=== PATIENT | male | born 1940 | race Caucasian/White ===

== ENCOUNTER → 2016-07-31 | Outpatient (REF) | payer MEDICARE ==
[~2016-07-31] MED LIST: /CLON2TA PO; /HCTZ25TA PO; /TAMS4CA PO; ACETAMINOPHEN PO; ASPI325T PO; ASPI81TA21 PO; CIPR250T2 PO; CRANPOW2 PO; DIGO25TA PO; DOXY-197 PO; ICAPCAP PO; LIPI80TA PO; METF1000 PO; MINI1CAP PO; PERCOCET PO; SYNT100T PO; TRAMADOL PO; VIT D3 PO; VITA100L PO; Vit B 12 PO; [UNRECOGNIZED DRUG - OTHER] PO; allopurinol PO; atenolol PO; colchicine PO; iron PO; lipitor PO; mega red PO; prazosin PO; spironolactone PO
[2016-07-31 19:20] LABS: PERCENT SATURATION 27.4 % (19.7-37.4)
== END ==
LOC: M LAB REF 16:52
PROVIDERS: ATTEND Internal Medicine Nephrology
DX: N18.9 Chronic kidney disease, unspecified (principal); D63.1 Anemia in chronic kidney disease

== ENCOUNTER → 2016-08-01 | Outpatient (REF) | payer OTHER ==
[2016-08-01 16:51] LABS: MEAN CORPUSCULAR HEMOGLOBIN 32.7 pg (27.0-33.0); MEAN CORPUSCULAR HGB CONC 32.5 g/dl (32.0-36.5); MEAN CORPUSCULAR VOLUME 100.6 fl (80.0-96.0); RED CELL DISTRIBUTION WIDTH 14.8 % (11.5-14.5); WHITE BLOOD COUNT 4.9 K/mm3 (4.0-10.0)
== END ==
LOC: M SFHCLERA 11:46
PROVIDERS: ATTEND Family Medicine
DX: K92.1 Melena (principal)

== ENCOUNTER → 2016-08-15 | Outpatient (CLI) | payer OTHER ==
[~2016-08-15] VITALS: Ht 177.8 cm; Wt 152.0 kg
[~2016-08-15] MED LIST changes: +ALLO10TA PO; +ATEN100T PO; +CRAN125T PO; +FLOM5CAP PO; +FURO1TAB15 PO; +GLUCAGON FOR INJ 1 MG VIAL (J1610) As Ordered ONE; +IRON28TA PO; +LEVO100T5 PO; +LIDOCAINE 2% INJ 100 MG/5 ML SDV (FOR ANES.) As Ordered ONE; +LISI2.5T3 PO; +LOVA20TA2 PO; +NS 1,000 ML IV SCH; +PROPOFOL 200 MG/20 ML VIAL As Ordered ONE; +SPIR50TA2 PO; +VITA100037 PO; +VITA100072 PO
--- NOTE | 2016-08-15 07:53 | ROOR ---
Patient Name: Jeffrey Chaudhary Procedure Date: 08/15/2016 7:37 AM Date of : 1940 Age: 76 Room: [facility] Gender: Male Note Status: Finalized Procedure: Upper GI endoscopy Indications: Iron deficiency anemia secondary to chronic blood loss Providers: Vernon HOLLY MD Referring MD: Wei Bonilla MD Requesting Provider: Medicines: Monitored Anesthesia Care Complications: No immediate complications. Procedure: Pre-Anesthesia Assessment: - The heart rate, respiratory rate, oxygen saturations, blood pressure, adequacy of pulmonary ventilation, and response to care were monitored throughout the procedure. The Endoscope was introduced through the mouth, and advanced to the second part of duodenum. The upper GI endoscopy was accomplished without difficulty. The patient tolerated the procedure well. Findings: The esophagus was normal. The stomach was normal. The examined duodenum was normal. Impression: - Normal esophagus. - Normal stomach. - Normal examined duodenum. - No specimens collected. Recommendation: - Observe patient's clinical course. Vernon Holly MD Vernon HOLLY MD 08/15/2016 7:52:32 AM This report has been signed electronically. Number of Addenda: 0 Note Initiated On: 08/15/2016 7:37 AM Estimated Blood Loss: Estimated blood loss: none.
--- NOTE | 2016-08-15 09:19 | ROOR ---
Patient Name: Jeffrey Chaudhary Procedure Date: 08/15/2016 7:39 AM Date of : 1940 Age: 76 Room: [facility] Gender: Male Note Status: Finalized Procedure: Colonoscopy Indications: Iron deficiency anemia Providers: Vernon HOLLY MD Referring MD: Wei Bonilla MD Requesting Provider: Medicines: Monitored Anesthesia Care Complications: No immediate complications. Procedure: Pre-Anesthesia Assessment: - The heart rate, respiratory rate, oxygen saturations, blood pressure, adequacy of pulmonary ventilation, and response to care were monitored throughout the procedure. The Colonoscope was introduced through the anus and advanced to the cecum, identified by appendiceal orifice and ileocecal valve. The colonoscopy was performed without difficulty. The patient tolerated the procedure well. The quality of the bowel preparation was adequate. Findings: The perianal and digital rectal examinations were normal. (EXAM: Complete, PREP:Adequate) A large (~30-40 mm) multilobed polypoid lesion was found in the ascending colon. The lesion was semi-sessile. The polyp was removed with a hot snare and The polyp was removed with a piecemeal technique using a hot snare. Polyp resection was incomplete, and the resected tissue was partially retrieved. A 20 mm polyp was found in the ascending colon. The polyp was sessile. The polyp was removed with a hot snare. The polyp was removed with a piecemeal technique using a hot snare. Polyp resection was incomplete, and the resected tissue was partially retrieved. Three sessile polyps were found in the hepatic flexure. The polyps were 7 to 15 mm in size. These polyps were removed with a piecemeal technique using a cold snare. Resection and retrieval were complete. Three sessile polyps were found in the splenic flexure. The polyps were 7 to 10 mm in size. These polyps were removed with a cold snare. Resection and retrieval were complete. To close a defect after polypectomy, five hemostatic clips were successfully placed in the mid ascending colon. Impression: - (EXAM: Complete, PREP:Adequate) - Rule out malignancy, large polypoid lesion in the mid ascending colon. Tissue was removed. - One 20 mm polyp in the proximal ascending colon, removed with a hot snare and removed piecemeal using a hot snare. Polyp resection was incomplete, and the resected tissue was partially retrieved. - Three 7 to 15 mm polyps at the hepatic flexure, removed piecemeal using a cold snare. Resected and retrieved. - Three 7 to 10 mm polyps at the splenic flexure, removed with a cold snare. Resected and retrieved. - Five hemostatic clips were successfully placed in the mid ascending colon. Recommendation: - Await pathology results. - No aspirin, ibuprofen, naproxen, or other non-steroidal anti-inflammatory drugs for 10 days after polyp removal. - Plan: Depending on pathology, will decide if needs surgical resection. Vernon Holly MD Vernon HOLLY MD 08/15/2016 9:18:58 AM This report has been signed electronically. Number of Addenda: 0 Note Initiated On: 08/15/2016 7:39 AM Estimated Blood Loss: Estimated blood loss: none.
[2016-08-15 09:40] VITALS: BP 128/68
== END ==
LOC: M OPP 06:42
PROVIDERS: ATTEND Internal Medicine Gastroenterology
DX: D12.2 Benign neoplasm of ascending colon (principal); D12.3 Benign neoplasm of transverse colon; D49.0 Neoplasm of unspecified behavior of digestive system; D50.0 Iron deficiency anemia secondary to blood loss (chronic); I10 Essential (primary) hypertension; I48.91 Unspecified atrial fibrillation; E11.9 Type 2 diabetes mellitus without complications; Z85.46 Personal history of malignant neoplasm of prostate; Z79.899 Other long term (current) drug therapy
CPT/HCPCS: 43235; 45385; 88305; J1610

== ENCOUNTER 2016-10-06 08:39 | Inpatient (IN) | payer OTHER ==
[~2016-10-06] VITALS: Ht 177.8 cm; Wt 148.2 kg
[~2016-10-06 08:39] MED LIST changes: -GLUCAGON FOR INJ 1 MG VIAL (J1610) As Ordered ONE; +K-TA10TA2 PO; +LEVO175T2 PO; -LIDOCAINE 2% INJ 100 MG/5 ML SDV (FOR ANES.) As Ordered ONE; -NS 1,000 ML IV SCH; -PROPOFOL 200 MG/20 ML VIAL As Ordered ONE
[2016-10-06] MEDS ORDERED: LISINOPRIL *2.5 MG* TAB PO SCH (09:00)
[2016-10-06] MEDS ORDERED: LR 1,000 ML IV SCH ×3 (09:00→16:15)
[2016-10-06] MEDS ORDERED: MIDAZOLAM INJ 2 MG/2 ML VIAL (J2250) As Ordered ONE (09:15)
[2016-10-06] MEDS ORDERED: ALVIMOPAN 12 MG CAPSULE (ENTEREG) PO ONE (09:15)
[2016-10-06] MEDS ORDERED: ERTAPENEM SODIUM 1 GM in NS MINI-BAG PLUS 50 ML IV ONE (09:15)
[2016-10-06] MEDS ORDERED: fentaNYL 100 MCG/2 ML INJECTION (J3010) As Ordered ONE ×2 (09:15→09:16)
[2016-10-06] MEDS ORDERED: PROPOFOL 200 MG/20 ML VIAL As Ordered ONE (09:16)
[2016-10-06] MEDS ORDERED: ROCURONIUM BROMIDE 50 MG/5 ML VIAL As Ordered ONE ×3 (09:16→13:35)
[2016-10-06] MEDS ORDERED: GLYCOPYRROLATE INJ 0.2 MG/ML 2 ML VIAL As Ordered ONE (09:16)
[2016-10-06] MEDS ORDERED: LIDOCAINE 2% INJ 100 MG/5 ML SDV (FOR ANES.) As Ordered ONE (09:16)
[2016-10-06] MEDS ORDERED: BUPIVACAINE HCL 0.25% 30 ML VIAL As Ordered ONE (10:41)
[2016-10-06] MEDS ORDERED: fentaNYL 100 MCG/2 ML INJECTION (J3010) IV ONE (10:45)
[2016-10-06] MEDS ORDERED: MIDAZOLAM INJ 2 MG/2 ML VIAL (J2250) IV ONE (10:45)
[2016-10-06] MEDS ORDERED: ePHEDrine SULFATE 25 MG/5 ML(5MG/ML) SYRINGE As Ordered ONE (11:05)
[2016-10-06] MEDS ORDERED: PHENYLephrine HCL 500 MCG/5 ML (100MCG/ML) SYRINGE (J2370) As Ordered ONE (11:05)
[2016-10-06] MEDS ORDERED: fentaNYL 250 MCG/5 ML INJECTION (J3010) As Ordered ONE (11:29)
[2016-10-06] MEDS ORDERED: ONDANSETRON 4MG/2ML VIAL (J2405) As Ordered ONE (13:15)
[2016-10-06] MEDS ORDERED: NEOSTIGMINE 1MG/ML 5 ML SYRINGE (J2710) As Ordered ONE (13:15)
[2016-10-06] MEDS ORDERED: LIDOCAINE 1% MDV 20ML VIAL ONE (13:56)
[2016-10-06] MEDS: MIDAZOLAM INJ 2 MG/2 ML VIAL (J2250) IV PRN ×2 (15:11→15:19)
[2016-10-06] MEDS: fentaNYL 100 MCG/2 ML INJECTION (J3010) IV PRN ×4 (15:12→16:12)
[2016-10-06] MEDS ORDERED: KETOROLAC 30 MG/ML VIAL (J1885) IV PRN (15:15)
[2016-10-06 15:30] LABS: ABG BASE EXCESS -7.7 (-2.0-2.0); ABG DEVICE ROOM AIR; ABG HCO3 19.7 MEQ/L (22.0-26.0); ABG PARTIAL PRESSURE CO2 46.8 mmHg (35.0-45.0); ABG PARTIAL PRESSURE O2 106.5 mmHg (75.0-100.0); ABG STANDARD HCO3 18.3 MEQ/L (22.0-26.0); ABG TOTAL CO2 21.1 MEQ/L (23.0-31.0)
[2016-10-06 15:32] LABS: ABG pH (ARTERIAL) 7.241 UNITS (7.350-7.450)
[2016-10-06] MEDS: FENTANYL/BUPIVACAINE/NACL CADD 250 ML EPIDURAL SCH (16:00)
[2016-10-06] MEDS ORDERED: NALOXONE INJ 0.4 MG/1 ML VIAL (J2310) IV PRN (16:00)
[2016-10-06] MEDS ORDERED: WALLBOXKEY XX PRN (16:00)
[2016-10-06] MEDS ORDERED: diphenhydrAMINE INJ 50MG/ML VIAL (J1200) IV PRN (16:00)
[2016-10-06] MEDS ORDERED: ONDANSETRON 4MG/2ML VIAL (J2405) IV PRN (16:00)
[2016-10-06] MEDS ORDERED: EPIDURAL/PCA KEYS XX PRN (16:00)
[2016-10-06] MEDS ORDERED: METOCLOPRAMIDE INJ 10MG/2ML VIAL (J2765) IV PRN (16:00)
--- NOTE | 2016-10-06 17:30 | CR ---
DATE OF CONSULTATION: 10/06/2016 INPATIENT CONSULTATION FOR: Dr. Osborn. PRIMARY CARE PROVIDER: Dr. Tompkins. NYLON HOT WIRE CUTTER: Dr. Barrios. REASON FOR CONSULTATION: Postoperative confusion. SUMMARY OF PRESENTATION: A 76-year-old with multiple medical issues who, postoperatively and after intubation, has been confused, pulling at his Haskins catheter, attempting to get out of bed. During the course of his evaluation for this, he had a blood gas done, which showed a pH of 7.24, pCO2 of 46, and a bicarbonate of 19, with a paO2 of 6. I was called to evaluate the patient. He did have a resection for high-grade colonic dysplasia and an umbilical hernia repair under general anesthesia. He had a preoperative evaluation done by Dr. Barrios for cardiac clearance. Currently, he is not useful historian. He is arousable and answers simply yes and no questions. He is not complaining of pain. He knows that he is in [place], although he does not tell me that he is in the hospital. PAST MEDICAL HISTORY: 1. Hypertension. 2. Type 2 diabetes. 3. Elevated PSA. 4. Gout. 5. Kidney stones. 6. Elevated cholesterol. 7. Obesity. 8. Prostate cancer. 9. Atrial fibrillation. 10. Chronic venous insufficiency. 11. Chronic kidney disease. He has no known drug allergies. SURGICAL HISTORY: 1. Prostate biopsy. 2. Cauterization of bladder. SOCIAL HISTORY: He is a former smoker. Quit over 10 years ago. He is not drinking any significant amount of alcohol. 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 FAMILY HISTORY: Not obtainable. REVIEW OF SYSTEMS: Is not meaningfully obtainable. MEDICATION LIST: - allopurinol 300 mg daily - atenolol 100 mg daily - vitamin B12 daily - Lasix 80 mg daily - lisinopril 2.5 mg daily - lovastatin 20 mg daily - potassium chloride 10 mEq daily - spironolactone 50 mg daily - Flomax 0.4 mg daily - vitamin D 1000 units daily - cranberry extract - iron supplement - I-caps - Synthroid 175 mcg daily PHYSICAL EXAMINATION: Temperature 98.2, pulse 112, respiratory rate variable between 18-24, although he does sometimes take some pauses in his respiratory drive, blood pressure 137/66, 98% on supplemental oxygen by nasal cannula. He is sleepy, but arousable. Following simple commands. He is re-directable when he is trying to get out of bed. Mucous membranes are moist. Neck is quite thick Breathing is symmetrically diminished. Inspiratory to expiratory ratio (I:E) is 1:4. Heart is distant sounding. Normal S1, S2. Regular rate and rhythm. Radial pulses are 2+. Abdomen is cleanly dressed. There is trace bilateral lower extremity edema. He appears to be moving all four extremities. Facies are symmetrical. The only lab for me to review at the moment is pH of 7.24, pCO2 of 46, pO2 of 106, and a bicarbonate of 19. Hemoglobin done on 08/01/2016 was 10.6 and platelets 118. Previous EKG on 09/27/2016 shows atrial fibrillation with a rate of 73, nonspecific interventricular conduction delay, R-wave progression, which is delayed, borderline left access deviation, with no changes from 07/2012. ASSESSMENT: This is a 76-year-old with metabolic encephalopathy postoperatively. PLAN: 1. Metabolic encephalopathy. Patient will be admitted to the intensive care unit (ICU) for close monitoring. I suspect that he has underlying obstructive sleep apnea, which is undiagnosed. He also has compounding acidemia. I believe that this represents recovery from the postoperative period. It is possible he may require bilevel positive airway pressure (BiPAP) or reintubation, should he worsen. 2. Patient has atrial fibrillation. He is off anticoagulation related to his surgery. Continue off anticoagulation for now. Will continue his beta deandra. 3. Patient has hypertension. We will hold his angiotensin-converting enzyme (HELEN) and his diuretics in the postoperative setting. 4. Patient has diabetes. Would recommend insulin coverage during his stay. 5. Patient has hyperlipidemia. Continue his statin postoperatively. 6. Patient has hypothyroidism. Continue with Synthroid. 7. Patient has gout. Continue with allopurinol. 8. Deep venous thrombosis (DVT) prophylaxis. Will likely be mechanical. 9. Patient has anemia and thrombocytopenia. This will be monitored postoperatively.
[2016-10-06] MEDS: LR 1,000 ML IV SCH (18:00)
[2016-10-06 19:00] VITALS: BP 116/57
[2016-10-06] MEDS: ALLOPURINOL 100 MG TAB PO SCH (19:19)
[2016-10-06] MEDS: TAMSULOSIN 0.4 MG CAP PO SCH (19:19)
[2016-10-06] MEDS: ALVIMOPAN 12 MG CAPSULE (ENTEREG) PO SCH (20:52)
[2016-10-06 21:00] VITALS: BP 114/59
[2016-10-06] MEDS: ENOXAPARIN 40 MG/0.4 ML SYRINGE (J1650) SC SCH (22:20)
[2016-10-06 23:00] VITALS: BP 112/54
[2016-10-07] VITALS (9 sets, daily range): BP systolic 94–119; BP diastolic 50–64
[2016-10-07 04:44] LABS: BASO % 0.2 % (0.0-1.0); EOS % 0.3 % (0.0-3.0); LARGE UNSTAINED CELL # 0.1 K/mm3 (0.0-0.4); LARGE UNSTAINED CELL % 1.8 % (0.0-4.0); LYMPH # 0.5 K/mm3 (1.5-4.5); LYMPH % 6.9 % (24.0-44.0); MEAN CORPUSCULAR HEMOGLOBIN 30.8 pg (27.0-33.0); MEAN CORPUSCULAR HGB CONC 32.5 g/dl (32.0-36.5); MEAN CORPUSCULAR VOLUME 94.8 fl (80.0-96.0); MONO # 0.6 K/mm3 (0.0-0.8); MONO % 7.8 % (0.0-5.0); NEUTROPHILS # 6.3 K/mm3 (1.8-7.7); PLATELET COUNT, AUTOMATED 107 k/mm3 (150-450); RED CELL DISTRIBUTION WIDTH 13.7 % (11.5-14.5); WHITE BLOOD COUNT 7.6 K/mm3 (4.0-10.0)
[2016-10-07 04:56] LABS: CALCIUM LEVEL 7.8 MG/DL (8.8-10.2); CREATININE FOR GFR 2.21 MG/DL (0.70-1.30); GLOMERULAR FILTRATION RATE 30.8 (>42)
[2016-10-07 04:59] LABS: POTASSIUM SERUM 5.4 MEQ/L (3.5-5.1)
[2016-10-07] MEDS: LEVOTHYROXINE 0.1 MG TAB (100 MCG) PO SCH (06:03)
[2016-10-07] MEDS: LEVOTHYROXINE 0.075 MG TAB (75 MCG) PO SCH (06:04)
[2016-10-07] MEDS: LR 1,000 ML IV SCH (06:07)
[2016-10-07] MEDS: ALLOPURINOL 100 MG TAB PO SCH (08:40)
[2016-10-07] MEDS: ALVIMOPAN 12 MG CAPSULE (ENTEREG) PO SCH ×2 (08:40→21:55)
[2016-10-07] MEDS: TAMSULOSIN 0.4 MG CAP PO SCH (08:40)
[2016-10-07] MEDS ORDERED: LIDOCAINE 1% MDV 20ML VIAL ONE (09:09)
[2016-10-07] MEDS: ATENOLOL 50 MG TAB PO SCH (09:31)
[2016-10-07] MEDS: FENTANYL/BUPIVACAINE/NACL CADD 250 ML EPIDURAL SCH (10:41)
[2016-10-07] MEDS: NS 1,000 ML IV SCH ×2 (11:13→22:00)
[2016-10-07 18:18] LABS: CALCIUM LEVEL 8.1 MG/DL (8.8-10.2); CREATININE FOR GFR 2.52 MG/DL (0.70-1.30); GLOMERULAR FILTRATION RATE 26.5 (>42)
[2016-10-07 18:29] LABS: POTASSIUM SERUM 5.2 MEQ/L (3.5-5.1)
[2016-10-07] MEDS: ENOXAPARIN 40 MG/0.4 ML SYRINGE (J1650) SC SCH (22:00)
[2016-10-08] VITALS (10 sets, daily range): BP systolic 87–125; BP diastolic 51–69
[2016-10-08 04:55] LABS: CALCIUM LEVEL 7.7 MG/DL (8.8-10.2); CREATININE FOR GFR 2.32 MG/DL (0.70-1.30); GLOMERULAR FILTRATION RATE 29.1 (>42); POTASSIUM SERUM 4.8 MEQ/L (3.5-5.1)
[2016-10-08] MEDS: LEVOTHYROXINE 0.075 MG TAB (75 MCG) PO SCH (05:25)
[2016-10-08] MEDS: LEVOTHYROXINE 0.1 MG TAB (100 MCG) PO SCH (05:25)
[2016-10-08] MEDS: FENTANYL/BUPIVACAINE/NACL CADD 250 ML EPIDURAL SCH (07:43)
[2016-10-08] MEDS: ALLOPURINOL 100 MG TAB PO SCH (07:44)
[2016-10-08] MEDS: TAMSULOSIN 0.4 MG CAP PO SCH (07:44)
[2016-10-08] MEDS: ALVIMOPAN 12 MG CAPSULE (ENTEREG) PO SCH ×2 (07:44→20:16)
[2016-10-08] MEDS: ATENOLOL 50 MG TAB PO SCH (07:44)
[2016-10-08] MEDS: FUROSEMIDE 40 MG TAB PO SCH (12:21)
--- NOTE | 2016-10-08 15:04 | RO ---
DATE OF PROCEDURE: 10/06/2016 PREOPERATIVE DIAGNOSIS: Cecal polyp with high-grade dysplasia. POSTOPERATIVE DIAGNOSES: 1. Cecal polyp with high-grade dysplasia. 2. Umbilical hernia, incarcerated. PROCEDURE PERFORMED: 1. Right hemicolectomy. 2. Repair of umbilical hernia. SURGEON: Dr. Osborn WELLNESS MANAGER: Dr. Becerra ANESTHESIA: General. INDICATIONS FOR THE PROCEDURE: The patient is a 76-year-old man who underwent colonoscopy and was found to have a large polyp in the cecum or proximal ascending colon. Portions of this were resected revealing adenomatous tissue with foci of high-grade dysplasia. Another polyp was noted in the mid ascending colon. He is now for a right hemicolectomy. He has been noted to have a large umbilical hernia as well. OPERATIVE PROCEDURE: An epidural catheter was placed preoperatively for postoperative pain management. The patient was transported to the operating room and placed under general endotracheal anesthesia. A Haskins catheter was inserted. The patient's abdomen was prepped and draped in a sterile fashion. The abdomen was entered through a midline incision beginning 2-3 cm above the umbilicus and extending superiorly approximately 20 cm. The incision was deepened through the abundant subcutaneous fat and the fascia was opened along the midline. The peritoneum was opened. The patient was noted to have abundant omental fat. Using handheld retractors the abdomen was explored. The gallbladder had a few small adhesions to the omentum and these were lysed. The liver was perhaps slightly firm and perhaps minimally nodular. The right colon was palpated. The abundant fatty tissue and thickness of the mesentery made palpation for lesions difficult. A definite mass was not palpable in the colon. A Jamie retractor was subsequently obtained and used for retraction. Patient's large umbilical hernia was identified and there was some omentum adherent into this. This was freed using the electrocautery to allow better exposure of the colon. The lateral attachments of the cecum and ascending colon were divided using the electrocautery and the avascular plane was opened extending up to the hepatic flexure. The mid transverse colon was identified and the fibrofatty tissue superior to this was elevated and the attachments below the liver were divided again using the cautery. After the peritoneum had been opened there were some more vascular structures that were clamped, divided and ligated with chromic. The terminal ileum was divided several centimeters proximal to the ileocecal valve with a linear cutter/stapler. The ileal mesentery was divided down to the base. Dissection then proceeded superiorly dividing the mesentery of the ascending colon. This was accomplished through avascular areas using the cautery and vascular structures were clamped, divided and ligated with chromic. The retroperitoneal duodenum was identified and carefully preserved. The transverse colon was divided with a load of the linear cutter 55 stapler just proximal to the middle colic vessels. The mesentery was divided down to its base. The final attachments in the right upper quadrant were divided and the right hemicolectomy was completed. The specimen was placed on the back table while the wound was inspected for hemostasis which was found to be excellent. I subsequently opened the specimen longitudinally. There was a definite 1-1/2 to 2 cm sessile polyp in the region of the mid ascending colon. A polyp in the proximal ascending colon or cecum was not definitely identified on exam. The specimen was placed in formalin and sent for permanent pathology. I changed gown and gloves and returned to the abdomen. The terminal ileum and the transverse colon were brought into apposition with several 3-0 Vicryl sutures. A stapled anastomosis was then performed with the linear cutter 55 stapler and a [id number] stapler to complete the anastomosis. Several 3-0 Vicryl sutures were placed to reinforce portions of the anastomosis and to close tissue over the anastomosis. The final anastomosis looked excellent with an excellent opening. The area was irrigated with warm saline. The mesenteric defect was closed with a running suture of 0 chromic. Final inspection in the right upper quadrant revealed excellent hemostasis. At this point I elected to address the patient's large umbilical hernia. He had a fascial defect that was perhaps 5 cm in diameter. The skin incision was extended slightly further inferiorly and the fascia was opened into the defect at the umbilicus. The umbilical skin was elevated off of the fascia around the periphery. The fascia appeared to be somewhat attenuated but it was clearly identified. I did not think it would be appropriate to place a permanent mesh having just performed a colonic anastomosis. The edges of the fascia were then closed in the area of the umbilical hernia using interrupted simple sutures of 0 Ethibond. This appeared to achieve a nice closure. Fascia in the rest of the incision was closed with interrupted simple sutures of #1 Vicryl. The umbilical skin was tacked down to the fascia with a 3-0 Vicryl. The skin incision was then closed with skin shannon. The patient tolerated the procedure well without apparent complication. He was awakened in the operating room. His respiratory effort appeared to be somewhat depressed on awakening and anesthesia elected to keep him intubated and transport him to the recovery room for later extubation. CARIN
--- NOTE | 2016-10-08 17:11 | IPN ---
DATE: 10/07/2016 Mr. Chaudhary is feeling much better this morning. He is awake, alert, pleasantly interactive looking forward to eating. He has not passed any flatus or stool. He has no pain. He is not experiencing chest pain or shortness of breath. On physical exam temperature is 98.8, pulse 80, respiratory rate 22, blood pressure 118/58, 100% on three liters nasal cannula. Weight is 148.2 kg. Body mass index 46.9. He is awake and interactive, pleasantly conversant, good historian. Mucous membranes are moist. Neck thick, supple. Breathing is symmetrical, diminished throughout. No wheezes, rales, or rhonchi. No accessory muscle use. Speaking in complete sentences. Heart is distant sounding, normal S1, S2. Radial pulse is 2+. Abdomen is soft, hypoactive bowel sounds. White cell count is 7.6, hemoglobin 11.2, and platelets of 107. Potassium 5.4, BUN 14, creatinine 2.2. ASSESSMENT: This is a 76-year-old postoperative day #1, status post bowel resection and hernia repair with resolved metabolic encephalopathy. PLAN: 1. Metabolic encephalopathy. I believe this is most likely multifactorial related to his anesthesia and post surgical discomfort. 2. Atrial fibrillation. He is currently off anticoagulation related to his surgery. Rate is controlled. Beta deandra is continued. HELEN inhibitors are held. His diuretics are currently held as well out of concern for third spacing. He is on a small amount of IV fluid which likely be discontinued if he tolerates his diet. 3. Hyperkalemia. Would recommend repeating labs this afternoon or early evening. 4. Diabetes. Goal fingersticks would be less than 200. He certainly seems to be in that range currently. 5. Hypothyroidism. Continue Synthroid. 6. Anemia and thrombocytopenia, which can be monitored with labs in the postoperative setting. 7. Deep vein thrombosis (DVT) prophylaxis per Dr. Osborn.
[2016-10-08] MEDS: ENOXAPARIN 40 MG/0.4 ML SYRINGE (J1650) SC SCH (22:08)
[2016-10-09 02:00] VITALS: BP 125/66
--- NOTE | 2016-10-09 02:57 | IPN ---
DATE: 10/08/2016 Mr. Chaudhary is feeling well this morning. He is sitting up at bedside. Ate a large breakfast, has not passed any flatus yet. Has not had bowel movement. The patient has complaints of pain. No chest pain. Not particularly short of breath. Does not feel particularly thirsty. Temperature is 97.2, pulse 73, respiratory rate 20, blood pressure 123/62, 95% on room air. Intake and output are notable for a positive fluid balance of 3418. There is a bowel movement recorded yesterday, although apparently the patient does not remember it. Breathing is symmetrical. I:E ratio is 103, rested. No accessory muscle use. Speaking in complete sentences. Heart is a regular rhythm, regular rate. No significant arrhythmia on monitor. Abdomen is distended. Cleanly dressed. Nontender to palpation. White cell count from yesterday was normal. Today, BUN is 46, creatine 2.32, now which has improved from last evening and trending towards his baseline of around 2.1. My assessment is as follows: This is a 76-year-old with postoperative metabolic encephalopathy. Plan is as follows: 1. Metabolic encephalopathy. This is completely resolved at this point. There was concern about a CO2 retention at that time. 2. The patient has atrial fibrillation. He is off anticoagulation. Continue on his beta blockade. 3. The patient has hypertension. Holding his HELEN inhibitor and his diuretics in the setting of renal failure in the postoperative setting. Will likely restart his diuretics tomorrow. 4. The patient has diabetes on insulin coverage . 5. The patient has hyperlipidemia. 6. The patient has hypothyroidism on Synthroid. 7. The patient has gout on allopurinol. 8. The patient has deep vein thrombosis (DVT) prophylaxis. 9. The patient has anemia perhaps check his complete blood count (CBC) tomorrow.
[2016-10-09] MEDS: FENTANYL/BUPIVACAINE/NACL CADD 250 ML EPIDURAL SCH ×2 (04:41→09:23)
[2016-10-09] MEDS: LEVOTHYROXINE 0.1 MG TAB (100 MCG) PO SCH (05:56)
[2016-10-09] MEDS: LEVOTHYROXINE 0.075 MG TAB (75 MCG) PO SCH (05:56)
[2016-10-09 06:00] VITALS: BP 130/68
[2016-10-09 06:14] LABS: MEAN CORPUSCULAR HEMOGLOBIN 31.6 pg (27.0-33.0); MEAN CORPUSCULAR HGB CONC 33.3 g/dl (32.0-36.5); MEAN CORPUSCULAR VOLUME 94.8 fl (80.0-96.0); RED CELL DISTRIBUTION WIDTH 13.6 % (11.5-14.5); WHITE BLOOD COUNT 5.7 K/mm3 (4.0-10.0)
[2016-10-09] MEDS: ALVIMOPAN 12 MG CAPSULE (ENTEREG) PO SCH ×2 (08:49→20:23)
[2016-10-09] MEDS: ATENOLOL 50 MG TAB PO SCH (08:49)
[2016-10-09] MEDS: FUROSEMIDE 40 MG TAB PO SCH (08:50)
[2016-10-09] MEDS: ALLOPURINOL 100 MG TAB PO SCH (08:50)
[2016-10-09] MEDS: TAMSULOSIN 0.4 MG CAP PO SCH (08:50)
[2016-10-09 10:00] VITALS: BP 128/58
[2016-10-09 14:00] VITALS: BP 133/64
[2016-10-09] MEDS: SPIRONOLACTONE 50 MG TAB NG SCH (15:31)
[2016-10-09] MEDS: ENOXAPARIN 40 MG/0.4 ML SYRINGE (J1650) SC SCH (17:25)
[2016-10-09] MEDS ORDERED: ENOXAPARIN 40 MG/0.4 ML SYRINGE (J1650) SC SCH (18:00)
[2016-10-09 22:00] VITALS: BP 116/58
[2016-10-10] VITALS (7 sets, daily range): BP systolic 118–138; BP diastolic 30–80
[2016-10-10] MEDS: FENTANYL/BUPIVACAINE/NACL CADD 250 ML EPIDURAL SCH (02:39)
[2016-10-10] MEDS: LEVOTHYROXINE 0.075 MG TAB (75 MCG) PO SCH (05:38)
[2016-10-10] MEDS: LEVOTHYROXINE 0.1 MG TAB (100 MCG) PO SCH (05:38)
[2016-10-10] MEDS: ATENOLOL 50 MG TAB PO SCH (08:25)
[2016-10-10] MEDS: ALLOPURINOL 100 MG TAB PO SCH (08:25)
[2016-10-10] MEDS: FUROSEMIDE 40 MG TAB PO SCH (08:25)
[2016-10-10] MEDS: TAMSULOSIN 0.4 MG CAP PO SCH (08:25)
[2016-10-10] MEDS: SPIRONOLACTONE 50 MG TAB NG SCH (08:25)
[2016-10-10] MEDS: ALVIMOPAN 12 MG CAPSULE (ENTEREG) PO SCH ×2 (08:25→20:23)
[2016-10-10] MEDS: NORCO, ANEXSIA 5/325MG TABLET (HYDROcodone/ACETAMINOPHEN) PO PRN ×3 (13:22→21:48)
[2016-10-10] MEDS: ENOXAPARIN 40 MG/0.4 ML SYRINGE (J1650) SC SCH (17:28)
[2016-10-11] MEDS: NORCO, ANEXSIA 5/325MG TABLET (HYDROcodone/ACETAMINOPHEN) PO PRN ×3 (01:53→18:27)
[2016-10-11 02:00] VITALS: BP 136/60
[2016-10-11 06:00] VITALS: BP 140/78
[2016-10-11] MEDS: LEVOTHYROXINE 0.1 MG TAB (100 MCG) PO SCH (06:11)
[2016-10-11] MEDS: LEVOTHYROXINE 0.075 MG TAB (75 MCG) PO SCH (06:11)
[2016-10-11 07:25] LABS: BASO % 0.2 % (0.0-1.0); EOS # 0.3 K/mm3 (0.0-0.50); EOS % 6.4 % (0.0-3.0); LARGE UNSTAINED CELL # 0.1 K/mm3 (0.0-0.4); LYMPH # 0.5 K/mm3 (1.5-4.5); MEAN CORPUSCULAR HEMOGLOBIN 31.5 pg (27.0-33.0); MEAN CORPUSCULAR HGB CONC 33.3 g/dl (32.0-36.5); MEAN CORPUSCULAR VOLUME 94.5 fl (80.0-96.0); MONO # 0.4 K/mm3 (0.0-0.8); MONO % 7.6 % (0.0-5.0); NEUTROPHILS # 3.7 K/mm3 (1.8-7.7); NEUTROPHILS % 74.8 % (36.0-66.0); PLATELET COUNT, AUTOMATED 130 k/mm3 (150-450); RED CELL DISTRIBUTION WIDTH 13.7 % (11.5-14.5); WHITE BLOOD COUNT 4.9 K/mm3 (4.0-10.0)
[2016-10-11 08:16] LABS: ALBUMIN/GLOBULIN RATIO 0.81 (1.00-1.93); BILIRUBIN,TOTAL 0.3 MG/DL (0.2-1.0); CALCIUM LEVEL 9.1 MG/DL (8.8-10.2); CREATININE FOR GFR 1.69 MG/DL (0.70-1.30); POTASSIUM SERUM 4.4 MEQ/L (3.5-5.1); TOTAL PROTEIN 6.7 GM/DL (6.4-8.2)
[2016-10-11] MEDS: TAMSULOSIN 0.4 MG CAP PO SCH (08:34)
[2016-10-11] MEDS: ATENOLOL 50 MG TAB PO SCH (08:34)
[2016-10-11] MEDS: SPIRONOLACTONE 50 MG TAB NG SCH (08:34)
[2016-10-11] MEDS: ALLOPURINOL 100 MG TAB PO SCH (08:34)
[2016-10-11] MEDS: FUROSEMIDE 40 MG TAB PO SCH (08:34)
[2016-10-11] MEDS: ALVIMOPAN 12 MG CAPSULE (ENTEREG) PO SCH ×2 (08:34→20:09)
[2016-10-11 10:00] VITALS: BP 140/70
[2016-10-11 14:00] VITALS: BP 130/80
[2016-10-11 18:00] VITALS: BP 140/60
[2016-10-11] MEDS: ENOXAPARIN 40 MG/0.4 ML SYRINGE (J1650) SC SCH (18:23)
[2016-10-11 22:00] VITALS: BP 136/56
[2016-10-12] MEDS: NORCO, ANEXSIA 5/325MG TABLET (HYDROcodone/ACETAMINOPHEN) PO PRN ×2 (04:56→21:34)
[2016-10-12] MEDS: LEVOTHYROXINE 0.1 MG TAB (100 MCG) PO SCH (05:35)
[2016-10-12] MEDS: LEVOTHYROXINE 0.075 MG TAB (75 MCG) PO SCH (05:35)
[2016-10-12 06:00] VITALS: BP 140/62
[2016-10-12] MEDS: FUROSEMIDE 40 MG TAB PO SCH (08:54)
[2016-10-12] MEDS: SPIRONOLACTONE 50 MG TAB NG SCH (08:54)
[2016-10-12] MEDS: ALLOPURINOL 100 MG TAB PO SCH (08:54)
[2016-10-12] MEDS: TAMSULOSIN 0.4 MG CAP PO SCH (08:54)
[2016-10-12] MEDS: ATENOLOL 50 MG TAB PO SCH (08:55)
[2016-10-12] MEDS: ALVIMOPAN 12 MG CAPSULE (ENTEREG) PO SCH ×2 (08:55→20:31)
[2016-10-12 10:00] VITALS: BP 124/74
[2016-10-12 14:00] VITALS: BP 122/70
[2016-10-12] MEDS ORDERED: NORCOTAB PO (17:19)
[2016-10-12] MEDS: ENOXAPARIN 40 MG/0.4 ML SYRINGE (J1650) SC SCH (17:44)
[2016-10-12 18:00] VITALS: BP 118/70
[2016-10-12 22:00] VITALS: BP_SYST 132; BP_SYST 152; BP_DIAS 82; BP_DIAS 86
[2016-10-13] MEDS: NORCO, ANEXSIA 5/325MG TABLET (HYDROcodone/ACETAMINOPHEN) PO PRN ×2 (01:35→06:08)
[2016-10-13 06:00] VITALS: BP_SYST 120; BP_SYST 160; BP_DIAS 56; BP_DIAS 96
[2016-10-13] MEDS: LEVOTHYROXINE 0.1 MG TAB (100 MCG) PO SCH (06:08)
[2016-10-13] MEDS: LEVOTHYROXINE 0.075 MG TAB (75 MCG) PO SCH (06:08)
[2016-10-13] MEDS: SPIRONOLACTONE 50 MG TAB NG SCH (08:25)
[2016-10-13 08:26] VITALS: BP 120/56
[2016-10-13] MEDS: ATENOLOL 50 MG TAB PO SCH (08:26)
[2016-10-13] MEDS: TAMSULOSIN 0.4 MG CAP PO SCH (08:26)
[2016-10-13] MEDS: FUROSEMIDE 40 MG TAB PO SCH (08:26)
[2016-10-13] MEDS: ALVIMOPAN 12 MG CAPSULE (ENTEREG) PO SCH (08:26)
[2016-10-13] MEDS: ALLOPURINOL 100 MG TAB PO SCH (08:26)
== END 2016-10-13 10:57 | disposition home health service (06) | DRG 329 ==
LOC: M OR 08:39 → M ICU 17:09 → M MSPAV 10-08 12:39
PROVIDERS: ADMIT Surgery; ATTEND Surgery
PROC: 0DBH0ZX Excision of Cecum, Open Approach, Diagnostic (ICD-10-PCS; 2016-10-06)
PROC: 0WQF0ZZ Repair Abdominal Wall, Open Approach (ICD-10-PCS; 2016-10-06)
PROC: 0DTK0ZZ Resection of Ascending Colon, Open Approach (ICD-10-PCS; principal; 2016-10-06 10:45)
DX: D12.2 Benign neoplasm of ascending colon (principal); G93.41 Metabolic encephalopathy; Z68.42 Body mass index [BMI] 45.0-49.9, adult; K42.9 Umbilical hernia without obstruction or gangrene; I12.9 Hypertensive chronic kidney disease with stage 1 through stage 4 chronic kidney disease, or unspecified chronic kidney disease; E11.9 Type 2 diabetes mellitus without complications; M10.9 Gout, unspecified; E78.5 Hyperlipidemia, unspecified; E66.01 Morbid (severe) obesity due to excess calories; I48.91 Unspecified atrial fibrillation; D69.6 Thrombocytopenia, unspecified; D64.9 Anemia, unspecified; I87.2 Venous insufficiency (chronic) (peripheral); N18.9 Chronic kidney disease, unspecified; Z85.46 Personal history of malignant neoplasm of prostate; Z87.891 Personal history of nicotine dependence; Z79.899 Other long term (current) drug therapy

== ENCOUNTER → 2016-10-23 | Outpatient (REF) | payer OTHER ==
[~2016-10-23] MED LIST changes: +NORCOTAB PO
[2016-10-23 18:13] LABS: MEAN CORPUSCULAR HEMOGLOBIN 31.1 pg (27.0-33.0); MEAN CORPUSCULAR HGB CONC 32.9 g/dl (32.0-36.5); MEAN CORPUSCULAR VOLUME 94.6 fl (80.0-96.0); WHITE BLOOD COUNT 5.2 K/mm3 (4.0-10.0)
[2016-10-23 19:29] LABS: ALBUMIN 3.4 GM/DL (3.2-5.2); BILIRUBIN,TOTAL 0.4 MG/DL (0.2-1.0); CALCIUM LEVEL 8.6 MG/DL (8.8-10.2); CREATININE FOR GFR 1.92 MG/DL (0.70-1.30); GLOMERULAR FILTRATION RATE 36.2 (>42); POTASSIUM SERUM 4.9 MEQ/L (3.5-5.1); TOTAL PROTEIN 6.8 GM/DL (6.4-8.2)
== END ==
LOC: M SFHCLERA 13:57
PROVIDERS: ATTEND Family Medicine
DX: N18.4 Chronic kidney disease, stage 4 (severe) (principal); I48.91 Unspecified atrial fibrillation; Z90.49 Acquired absence of other specified parts of digestive tract
CPT/HCPCS: 80053; 85027; G0463

== ENCOUNTER → 2016-11-14 | Outpatient (REF) | payer OTHER ==
[2016-11-14 20:47] LABS: MEAN CORPUSCULAR HEMOGLOBIN 30.9 pg (27.0-33.0); MEAN CORPUSCULAR HGB CONC 33.2 g/dl (32.0-36.5); MEAN CORPUSCULAR VOLUME 93.1 fl (80.0-96.0); WHITE BLOOD COUNT 6.4 K/mm3 (4.0-10.0)
[2016-11-14 21:02] LABS: ALBUMIN 3.7 GM/DL (3.2-5.2); ALBUMIN/GLOBULIN RATIO 0.93 (1.00-1.93); BILIRUBIN,TOTAL 0.5 MG/DL (0.2-1.0); CALCIUM LEVEL 9.2 MG/DL (8.8-10.2); CREATININE FOR GFR 2.14 MG/DL (0.70-1.30); POTASSIUM SERUM 4.9 MEQ/L (3.5-5.1); TOTAL PROTEIN 7.7 GM/DL (6.4-8.2)
== END ==
LOC: M SFHCLERA 15:58
PROVIDERS: ATTEND Family Medicine
DX: N18.4 Chronic kidney disease, stage 4 (severe) (principal)

== ENCOUNTER → 2016-12-28 | Outpatient (REF) | payer OTHER ==
[~2016-12-28] MED LIST changes: +ASPI81TA85 PO; +CALC1TAB21 PO; -FURO1TAB15 PO; +FURO80TA2 PO; -VITA100037 PO; +VITA100067 PO
[2016-12-29 11:40] LABS: MEAN CORPUSCULAR HEMOGLOBIN 31.6 pg (27.0-33.0); MEAN CORPUSCULAR VOLUME 95.8 fl (80.0-96.0); RED CELL DISTRIBUTION WIDTH 14.8 % (11.5-14.5); WHITE BLOOD COUNT 6.8 K/mm3 (4.0-10.0)
== END ==
LOC: M SFHCLERA 15:56
PROVIDERS: ATTEND Family Medicine
DX: I48.91 Unspecified atrial fibrillation (principal)
CPT/HCPCS: 85027; G0463

== ENCOUNTER → 2017-01-19 | Outpatient (REF) | payer OTHER ==
[2017-01-19 19:01] LABS: FOLATE 8.8 NG/ML (>5.4)
== END ==
LOC: M LAB REF 16:52
PROVIDERS: ATTEND Internal Medicine Nephrology
DX: D64.9 Anemia, unspecified (principal)

== ENCOUNTER → 2017-01-29 | Outpatient (REF) | payer OTHER ==
[2017-01-29 21:22] LABS: MEAN CORPUSCULAR HEMOGLOBIN 32.5 pg (27.0-33.0); MEAN CORPUSCULAR HGB CONC 33.8 g/dl (32.0-36.5); MEAN CORPUSCULAR VOLUME 96.1 fl (80.0-96.0); WHITE BLOOD COUNT 5.4 K/mm3 (4.0-10.0)
== END ==
LOC: M SFHCLERA 16:00
PROVIDERS: ATTEND Family Medicine
DX: N18.4 Chronic kidney disease, stage 4 (severe) (principal); D64.9 Anemia, unspecified

== ENCOUNTER → 2017-02-12 | Outpatient (REF) | payer OTHER ==
[2017-02-12 13:07] LABS: MEAN CORPUSCULAR HEMOGLOBIN 32.4 pg (27.0-33.0); MEAN CORPUSCULAR HGB CONC 33.2 g/dl (32.0-36.5); MEAN CORPUSCULAR VOLUME 97.6 fl (80.0-96.0); RED CELL DISTRIBUTION WIDTH 15.5 % (11.5-14.5); WHITE BLOOD COUNT 5.6 K/mm3 (4.0-10.0)
[2017-02-12 13:09] LABS: INR 1.04
[2017-02-12 13:37] LABS: ALBUMIN 3.6 GM/DL (3.2-5.2); ALBUMIN/GLOBULIN RATIO 1.09 (1.00-1.93); BILIRUBIN,TOTAL 0.6 MG/DL (0.2-1.0); CREATININE FOR GFR 2.3 MG/DL (0.70-1.30); GLOMERULAR FILTRATION RATE 29.4 (>42); POTASSIUM SERUM 5.1 MEQ/L (3.5-5.1); TOTAL PROTEIN 6.9 GM/DL (6.4-8.2)
== END ==
LOC: M SFHCLERA 08:17
PROVIDERS: ATTEND Family Medicine
DX: D64.9 Anemia, unspecified (principal); Z91.89 Other specified personal risk factors, not elsewhere classified; K92.1 Melena; Z90.49 Acquired absence of other specified parts of digestive tract; Z79.82 Long term (current) use of aspirin; Z79.899 Other long term (current) drug therapy
CPT/HCPCS: 80053; 82270; 85027; 85610; G0463

== ENCOUNTER → 2017-02-22 | Outpatient (CLI) | payer OTHER ==
[~2017-02-22] MED LIST changes: +GASTROGRAFIN SOLUTION 30ML (Q9963) As Ordered ONE; +ISOVUE-370 76% 100ML VIAL (Q9967) As Ordered ONE
--- NOTE | 2017-02-23 08:11 | REP ---
Clinical: Status post colectomy with decreased hemoglobin levels. Comparison: 05/19/2013. Findings: Lung bases demonstrate minimal chronic-appearing interstitial and dependent changes without pleural effusion or consolidation. Visualized portions of the heart and pericardium demonstrate atherosclerotic changes without cardiomegaly or pericardial effusion. Liver, spleen, pancreas, gallbladder, and bilateral adrenal glands are normal / stable for noncontrast evaluation. Upper abdominal vasculature suggests cirrhosis and elements of portal venous hypertension with portosystemic shunting and collateral circulation similar to prior examination. The kidneys demonstrate chronic appearing atrophic changes, perinephric stranding, renovascular calcifications, and nonobstructing right renal calculi measuring up to approximately 8 mm. No hydroureteronephrosis identified. Visualized portions of the enteric system are unremarkable. Visualized portions of the peritoneum without evidence for ascites, fluid collection/abscess, free air, or significant adenopathy. Atherosclerotic changes of the aorta and vasculature noted. Skeletal structures demonstrate age-related changes. Impression: Chronic-appearing changes as described above. No obvious acute abdominal pathology appreciated. Signed by Len Ledesma MD 02/23/2017 04:08 A
== END ==
LOC: M RAD 14:40
PROVIDERS: ATTEND Family Medicine
DX: D64.9 Anemia, unspecified (principal); K92.1 Melena; Z91.89 Other specified personal risk factors, not elsewhere classified; Z90.49 Acquired absence of other specified parts of digestive tract
CPT/HCPCS: 74150; Q9963

== ENCOUNTER → 2017-03-16 | Outpatient (CLI) | payer OTHER ==
[~2017-03-16] MED LIST changes: +E-Z-PAQUE 96% w/w SUSP 176GM BTL As Ordered ONE; -GASTROGRAFIN SOLUTION 30ML (Q9963) As Ordered ONE; -ISOVUE-370 76% 100ML VIAL (Q9967) As Ordered ONE
--- NOTE | 2017-03-16 14:55 | REP ---
SMALL FOLLOW-THROUGH STUDY: HISTORY: Iron deficiency anemia. 1 minute and 3 seconds of fluoroscopy time was utilized. FINDINGS: Preliminary accounting/finance tutor radiograph shows clips and sutures in the right mid abdomen and vascular calcification. No gastric or duodenal abnormality is seen. Jejunal loops are unremarkable. Transit time is normal. Ileal loops show no evidence of obstruction mass or stricture. The patient is status post right colectomy and ileotransverse anastomosis is seen without abnormality. IMPRESSION: Status post right colectomy. Otherwise, unremarkable small bowel follow-through series. Signed by Diego Domínguez MD 03/16/2017 04:58 P
== END ==
LOC: M RAD 07:13
PROVIDERS: ATTEND Internal Medicine Gastroenterology
DX: D50.9 Iron deficiency anemia, unspecified (principal)

== ENCOUNTER 2017-04-10 06:43 | Outpatient (CLI) | payer OTHER ==
[~2017-04-10] VITALS: Ht 180.3 cm; Wt 136.1 kg
[~2017-04-10 06:43] MED LIST changes: -E-Z-PAQUE 96% w/w SUSP 176GM BTL As Ordered ONE
[2017-04-10] MEDS ORDERED: NS 1,000 ML IV ONE (07:00)
[2017-04-10] MEDS ORDERED: PROPOFOL 200 MG/20 ML VIAL As Ordered ONE ×2 (07:36→07:57)
[2017-04-10] MEDS ORDERED: LIDOCAINE 2% INJ 100 MG/5 ML SDV (FOR ANES.) As Ordered ONE (07:36)
--- NOTE | 2017-04-10 07:45 | ROOR ---
Patient Name: Jeffrey Chaudhary Procedure Date: 04/10/2017 7:30 AM Date of : 1940 Age: 76 Room: [facility] Gender: Male Note Status: Finalized Procedure: Upper GI endoscopy Indications: Iron deficiency anemia Providers: Vernon HOLLY MD Referring MD: Wei Bonilla MD Requesting Provider: Medicines: Monitored Anesthesia Care Complications: No immediate complications. Procedure: Pre-Anesthesia Assessment: - The heart rate, respiratory rate, oxygen saturations, blood pressure, adequacy of pulmonary ventilation, and response to care were monitored throughout the procedure. The Endoscope was introduced through the mouth, and advanced to the second part of duodenum. The upper GI endoscopy was accomplished without difficulty. The patient tolerated the procedure well. Findings: The esophagus was normal. The stomach was normal. (large volume) The examined duodenum was normal. Impression: - Normal esophagus. - Normal stomach. - Normal examined duodenum. - No specimens collected. Recommendation: - Continue present medications. - Perform a colonoscopy. Vernon Holly MD Vernon HOLLY MD 04/10/2017 7:44:56 AM This report has been signed electronically. Number of Addenda: 0 Note Initiated On: 04/10/2017 7:30 AM Estimated Blood Loss: Estimated blood loss: none.
--- NOTE | 2017-04-10 08:18 | ROOR ---
Patient Name: Jeffrey Chaudhary Procedure Date: 04/10/2017 7:31 AM Date of : 1940 Age: 76 Room: [facility] Gender: Male Note Status: Finalized Procedure: Colonoscopy Indications: Iron deficiency anemia Providers: Vernon HOLLY MD Referring MD: Wei Bonilla MD Requesting Provider: Medicines: Monitored Anesthesia Care Complications: No immediate complications. Procedure: Pre-Anesthesia Assessment: - The heart rate, respiratory rate, oxygen saturations, blood pressure, adequacy of pulmonary ventilation, and response to care were monitored throughout the procedure. The Colonoscope was introduced through the anus and advanced to the ileocolonic anastomosis. The colonoscopy was performed without difficulty. The patient tolerated the procedure well. The quality of the bowel preparation was fair. Findings: The perianal and digital rectal examinations were normal. (EXAM: Complete, PREP: Fair/Adequate) There was evidence of a prior end-to-side ileo-colonic anastomosis at the hepatic flexure. This was characterized by healthy appearing mucosa. Two sessile polyps were found in the transverse colon. The polyps were 4 to 5 mm in size. These polyps were removed with a cold snare. Resection and retrieval were complete. Four sessile polyps were found in the sigmoid colon. The polyps were 4 to 5 mm in size. These polyps were removed with a cold snare. Resection and retrieval were complete. Internal hemorrhoids were found during retroflexion. The hemorrhoids were moderate. The mucosa vascular pattern in the distal rectum was increased. Impression: - (EXAM: Complete, PREP: Fair/Adequate) - End-to-side ileo-colonic anastomosis, characterized by healthy appearing mucosa. - Two 4 to 5 mm polyps in the transverse colon, removed with a cold snare. Resected and retrieved. - Four 4 to 5 mm polyps in the sigmoid colon, removed with a cold snare. Resected and retrieved. - Moderate Internal hemorrhoids. - Increased mucosa vascular pattern in the distal rectum. Recommendation: - To visualize the small bowel, perform video capsule endoscopy at appointment to be scheduled. Vernon Holly MD Vernon HOLLY MD 04/10/2017 8:18:25 AM This report has been signed electronically. Number of Addenda: 0 Note Initiated On: 04/10/2017 7:31 AM Estimated Blood Loss: Estimated blood loss: none.
[2017-04-10 08:30] VITALS: BP 144/77
== END 2017-04-10 08:36 | disposition home or self-care (01) ==
LOC: M OPP 06:43
PROVIDERS: ATTEND Internal Medicine Gastroenterology
DX: D50.9 Iron deficiency anemia, unspecified (principal); K92.1 Melena; D12.3 Benign neoplasm of transverse colon; D12.5 Benign neoplasm of sigmoid colon; K64.8 Other hemorrhoids; Z98.0 Intestinal bypass and anastomosis status; K62.89 Other specified diseases of anus and rectum; I48.91 Unspecified atrial fibrillation; I12.9 Hypertensive chronic kidney disease with stage 1 through stage 4 chronic kidney disease, or unspecified chronic kidney disease; E78.5 Hyperlipidemia, unspecified; E11.9 Type 2 diabetes mellitus without complications; M10.9 Gout, unspecified; E03.9 Hypothyroidism, unspecified; Z87.19 Personal history of other diseases of the digestive system; M19.90 Unspecified osteoarthritis, unspecified site; J45.909 Unspecified asthma, uncomplicated; R06.83 Snoring; N18.9 Chronic kidney disease, unspecified; Z85.46 Personal history of malignant neoplasm of prostate; Z92.21 Personal history of antineoplastic chemotherapy; Z92.3 Personal history of irradiation; N40.1 Benign prostatic hyperplasia with lower urinary tract symptoms; Z87.891 Personal history of nicotine dependence; Z79.82 Long term (current) use of aspirin; Z79.899 Other long term (current) drug therapy; Z80.51 Family history of malignant neoplasm of kidney

== ENCOUNTER → 2017-07-03 | Outpatient (CLI) | payer OTHER ==
[2017-07-03 17:14] LABS: MEAN CORPUSCULAR HEMOGLOBIN 32.4 pg (27.0-33.0); MEAN CORPUSCULAR HGB CONC 32.7 g/dl (32.0-36.5); MEAN CORPUSCULAR VOLUME 98.9 fl (80.0-96.0); PLATELET COUNT, AUTOMATED 180 10^3/uL (150-450); RED CELL DISTRIBUTION WIDTH 13.6 % (11.5-14.5)
[2017-07-03 17:22] LABS: CALCIUM LEVEL 10.4 MG/DL (8.8-10.2); CREATININE FOR GFR 2.74 MG/DL (0.70-1.30)
[2017-07-03 17:32] LABS: POTASSIUM SERUM 6.1 MEQ/L (3.5-5.1)
== END ==
LOC: M SMT 13:18
PROVIDERS: ATTEND Urology
DX: Z85.46 Personal history of malignant neoplasm of prostate (principal)

== ENCOUNTER → 2017-09-27 | Outpatient (REF) | payer OTHER ==
[2017-09-27 21:04] LABS: ESTIMATED AVERAGE GLUCOSE 131 MG/DL (60-110); HEMOGLOBIN A1c 6.2 %
== END ==
LOC: M SFHCLERA 16:21
DX: E11.22 Type 2 diabetes mellitus with diabetic chronic kidney disease (principal)
CPT/HCPCS: 84443

== ENCOUNTER → 2017-11-19 | Outpatient (RCR) | payer OTHER | END | disposition home or self-care (01) | LOC: M PT 08:54 | DX: Z51.89 Encounter for other specified aftercare (principal); I89.0 Lymphedema, not elsewhere classified | CPT/HCPCS: 97530 ==

== ENCOUNTER → 2017-12-06 | Outpatient (REF) | payer OTHER ==
[2017-12-06 14:36] LABS: FOLATE 15.8 NG/ML; VITAMIN B12 LEVEL 338 PG/ML
[2017-12-06 14:55] LABS: FERRITIN 133 NG/ML (26-388); IRON (FE) 35 UG/DL (65-175); PERCENT SATURATION 13.3 % (19.7-50.0); TOTAL IRON BINDING CAPACITY 263 UG/DL (250-450); TOTAL PROTEIN 7.7 GM/DL (6.4-8.2)
[2017-12-06 23:25] LABS: TOTAL PROTEIN,RANDOM URINE 88.3 MG/DL (0.0-12.0); URINE TOTAL PROTEIN 88.3 MG/DL (0-12)
[2017-12-07 12:53] LABS: ALBUMIN 3.72 GM/DL (3.29-5.55); ALBUMIN % 48.3 % (55.8-66.1); ALPHA-1-GLOBULIN % 6.1 % (2.9-4.9); ALPHA-1-GLOBULINS 0.47 GM/DL (0.17-0.41); ALPHA-2-GLOBULINS 1.01 GM/DL (0.42-0.99); ALPHA-2-GLOBULINS % 13.1 % (7.1-11.8); BETA-1-GLOBULINS 0.45 GM/DL (0.28-0.60); BETA-1-GLOBULINS % 5.8 % (4.7-7.2); BETA-2-GLOBULINS 0.48 GM/DL (0.19-0.55); BETA-2-GLOBULINS % 6.2 % (3.2-6.5); GAMMA GLOBULIN % 20.5 % (11.1-18.8); GAMMA GLOBULINS 1.58 GM/DL (0.65-1.58)
[2017-12-07 13:19] LABS: URINE VOLUME RANDOM ML
[2017-12-07 13:20] LABS: UPEP INTERPRETATION NO M-SPIKE NOTED
[2017-12-11 00:07] LABS: ANCA-ATYPICAL <1:20 titer (Neg:<1:20); ANTINUCLEAR ANTIBODIES DIRECT Negative (Negative); CYTOPLASMIC NEUTROP AB ANCA-C <1:20 titer (Neg:<1:20); FREE LAMBDA LIGHT CHAINS SERUM 74.3 mg/L (5.7-26.3); KAPPA/LAMBDA RATIO SERUM 1.43 (0.26-1.65); PERINUCLEAR AB ANCA-P <1:20 titer (Neg:<1:20)
== END ==
LOC: M LAB REF 13:05
DX: D64.9 Anemia, unspecified (principal)
CPT/HCPCS: 82746

== ENCOUNTER 2017-12-21 07:35 | Outpatient (RCR) | payer OTHER | END 2018-01-19 | LOC: M PT 12-24 08:29 | DX: I89.0 Lymphedema, not elsewhere classified (principal); Z51.89 Encounter for other specified aftercare | CPT/HCPCS: 97140 ==

== ENCOUNTER 2018-01-07 06:48 | Outpatient (CLI) | payer OTHER ==
[2018-01-07] MEDS: IRON SUCROSE 25 MG in NS 50 ML IV (07:50)
[2018-01-07] MEDS: IRON SUCROSE 475 MG in NS 250 ML IV (09:03)
== END 2018-01-07 12:30 | disposition home or self-care (01) ==
LOC: M INFU 06:48
DX: D50.9 Iron deficiency anemia, unspecified (principal); N18.9 Chronic kidney disease, unspecified; E11.9 Type 2 diabetes mellitus without complications; I12.9 Hypertensive chronic kidney disease with stage 1 through stage 4 chronic kidney disease, or unspecified chronic kidney disease; E03.9 Hypothyroidism, unspecified; Z79.82 Long term (current) use of aspirin; Z79.899 Other long term (current) drug therapy; Z86.79 Personal history of other diseases of the circulatory system; Z85.46 Personal history of malignant neoplasm of prostate; Z92.3 Personal history of irradiation; Z90.49 Acquired absence of other specified parts of digestive tract; Z87.448 Personal history of other diseases of urinary system
CPT/HCPCS: J1756

== ENCOUNTER → 2018-02-25 | Outpatient (CLI) | payer OTHER | LOC: M RAD 11:21 | DX: I87.312 Chronic venous hypertension (idiopathic) with ulcer of left lower extremity (principal) | CPT/HCPCS: 93971 ==

== ENCOUNTER → 2018-04-18 | Outpatient (REF) | payer OTHER | LOC: M LAB REF 17:21 | DX: L85.9 Epidermal thickening, unspecified (principal) | CPT/HCPCS: 88305 ==

== ENCOUNTER → 2018-07-02 | Outpatient (CLI) | payer OTHER ==
[~2018-07-02] MED LIST changes: +FLOM0.4C39 PO; -FLOM5CAP PO; -LISI2.5T3 PO; +LISI2.5T5 PO; -SPIR50TA2 PO; +SPIR50TA4 PO
== END ==
LOC: M SMT 14:00
PROVIDERS: ATTEND Nurse Practitioner Women's Health
DX: Z85.46 Personal history of malignant neoplasm of prostate (principal)
CPT/HCPCS: 36415; 84153; G0463

== ENCOUNTER 2018-08-31 06:25 | Inpatient (IN) | payer MEDICARE, OTHER ==
[~2018-08-31] VITALS: Ht 177.8 cm; Wt 136.7 kg
[2018-08-31 07:09] LABS: BASO % 0.4 % (0.0-1.0); EOS # 0.5 10^3/uL (0.0-0.50); EOS % 6.2 % (0.0-3.0); HEMATOCRIT 37.1 % (42.0-52.0); HEMOGLOBIN 12.4 g/dl (13.5-17.5); LYMPH # 0.5 10^3/uL (1.5-4.5); LYMPH % 6.9 % (24.0-44.0); MEAN CORPUSCULAR HEMOGLOBIN 32.3 pg (27.0-33.0); MEAN CORPUSCULAR HGB CONC 33.4 g/dl (32.0-36.5); MEAN CORPUSCULAR VOLUME 96.6 fl (80.0-96.0); MONO # 0.7 10^3/uL (0.0-0.8); MONO % 9.7 % (0.0-5.0); NEUTROPHILS # 5.5 10^3/uL (1.8-7.7); NEUTROPHILS % 76.4 % (36.0-66.0); PLATELET COUNT, AUTOMATED 142 10^3/uL (150-450); RED BLOOD COUNT 3.84 10^6/uL (4.30-6.10); WHITE BLOOD COUNT 7.2 10^3/uL (4.0-10.0)
[2018-08-31 07:21] LABS: INR 1.02; PROTHROMBIN TIME 13.5 SECONDS (12.1-14.4)
[2018-08-31 07:22] LABS: PARTIAL THROMBOPLASTIN TIME 28.5 SECONDS (25.4-37.6)
[2018-08-31 07:34] LABS: BILIRUBIN,DIRECT 0.2 MG/DL (0.0-0.2); BILIRUBIN,TOTAL 0.7 MG/DL (0.2-1.0); CALCIUM LEVEL 9.3 MG/DL (8.8-10.2); CREATININE FOR GFR 3.08 MG/DL (0.70-1.30); GLOMERULAR FILTRATION RATE 20.9 (>35); POTASSIUM SERUM 3.2 MEQ/L (3.5-5.1); TOTAL PROTEIN 8.3 GM/DL (6.4-8.2)
--- NOTE | 2018-08-31 08:18 | REPVR ---
EXAM: CT Abdomen and Pelvis Without Contrast EXAM DATE/TIME: 08/31/2018 7:27 AM CLINICAL HISTORY: 78 years old, male; Signs and symptoms; Other: Hematuria; Prior surgery; Surgery date: 6+ months; Surgery type: Bladder and prostate; Additional info: Hematuria, HX stones/prostate CA TECHNIQUE: Axial computed tomography images of the abdomen and pelvis without contrast. All CT scans at this facility use at least one of these dose optimization techniques: automated exposure control; mA and/or kV adjustment per patient size (includes targeted exams where dose is matched to clinical indication); or iterative reconstruction. Coronal and sagittal reformatted images were created and reviewed. COMPARISON: CT ABD PELVIS W/O CONTRAST 05/19/2013 9:46 AM FINDINGS: Lower thorax: No acute findings. ABDOMEN: Liver: The liver is nodular in contour with heterogeneous parenchyma. Varicosities with splenorenal shunting seen. Gallbladder and bile ducts: Normal. No calcified stones. No ductal dilation. Pancreas: Normal. No ductal dilation. Spleen: The spleen is enlarged measuring up to 16.1 cm. Adrenals: Normal. No mass. Kidneys and ureters: There is a 1.3 cm dense right upper renal pole lesion. There is a 8mm right lower renal pole stone. There is a 2 mm left upper renal pole stone. There is no hydronephrosis. There is short segment of significant distention of the mid to distal ureter (axial image 110). Stomach and bowel: The patient is status post right hemicolectomy with grossly intact anastomosis in the right upper abdominal quadrant. Appendix: No evidence of appendicitis. PELVIS: Bladder: The urinary bladder is under distended however there is suggestion of significant wall thickening. Reproductive: Likely prostate radiation seed implants seen ABDOMEN and PELVIS: Intraperitoneal space: Normal. No free air. No significant fluid collection. Bones/joints: There is however L4-L5 S1 with degenerative changes. Bulky anterior thoracic spine osteophytes seen. Soft tissues: Unremarkable. Vasculature: There is severe aortic and iliac mural calcifications as well as calcification of the aortic branches. There is minimal ectasia of infrarenal aorta measuring 3.1 cm. Lymph nodes: Normal. No enlarged lymph nodes. IMPRESSION: 1. Nonspecific significant thickening of the bladder wall which could be secondary to cystitis however other underlying pathologies cannot be excluded. 2. Short segment of significant distention of the distal ureter. Underlying ureteral lesion cannot be excluded. Correlation with CT urogram is suggested. 3. Status post right hemicolectomy with grossly intact anastomosis in the right upper abdominal quadrant. No bowel obstruction seen. 4. Cirrhotic liver with splenomegaly and perisplenic and splenorenal varices. 5. Nonobstructing nephrolithiasis. 6. 1.3 cm dense right upper renal pole lesion could represent cyst with proteinaceous material or blood products. This was not seen on the prior exam of 2012. Further characterization with MRI is suggested. COMMENT: Consistent with the [employer]'s Incidental Findings Committee Report (J Am Dario Radiol 2010): Unless the patient's specific circumstances suggest otherwise, any liver lesion 0.5 cm or less, any cystic kidney lesion less than 1.0 cm, and/or any adrenal lesion 1.0 cm or less not otherwise characterized in this report as possessing suspicious or indeterminate imaging features is/are highly likely to be benign and do not require follow-up imaging or biopsy. Electronically signed by: Oscar Grissom On 08/31/2018 08:18:18 AM
[2018-08-31] MEDS ORDERED: ATENOLOL 50 MG TAB PO ONE (08:45)
[2018-08-31] MEDS ORDERED: CIPROFLOXACIN 400 MG in APPROPRIATE DILUENT 1 EA IV ONE (08:45)
[2018-08-31] MEDS ORDERED: LISINOPRIL *2.5 MG* TAB PO ONE (08:45)
[2018-08-31] MEDS ORDERED: FUROSEMIDE 80 MG TAB PO ONE (08:45)
[2018-08-31] MEDS ORDERED: SPIRONOLACTONE 50 MG TAB PO SCH (09:00)
[2018-08-31] MEDS ORDERED: METO1TAB7 PO (09:54)
[2018-08-31] MEDS ORDERED: TORS100T PO (09:54)
[2018-08-31] MEDS ORDERED: METO25TA PO (09:54)
[2018-08-31] MEDS ORDERED: ZYLO300T6 PO (09:54)
[2018-08-31] MEDS ORDERED: FERR1TAB8 PO (09:59)
--- NOTE | 2018-08-31 13:01 | CR.PDOC ---
General Date of Consultation: Aug 31, 2018 Referring Provider: Jael Velasoc Primary Care Physician: RUBEN HAINES MD Attending Physician: RUBEN HAINES MD Consultation REASON FOR CONSULTATION/CHIEF COMPLAINT: BLEEDING FROM THE URETHRA/BLADDER. HISTORY OF PRESENT ILLNESS: H/O PROSTATE CANCER; S/P xrt PROSTATE 15YEARS AGO BY "[place] DOCTOR". HE STARTED BLEEDING WHILE ON ASPIRIN TODAY. HE CAME IN AND WAS FOUND TO HAVE ABNORMAL (DIRTY) URINALYSIS. PT DENIES NAUSEA VOMITTING FEVER CHILLS. HIS URINARY SYMPTOMS HAVE BEEN STABLE TILL NOW. HIS PSA WAS HE BELIEVES RESPONSIVE TO THE RADIATION. HE DOES NOT KNOW WHO IS ORIGINAL UROLOGIST WAS. HE IS CURRENTLY BEING FOLLOWED BY MANDA WILSON NP AT [facility] UR[facility]. CT TODAY IDENTIFIED DISTAL URETERAL DILATION WORTHY OF CT CYSTOGRAM. [address] WAY SUTTON WAS PASSED IN THE ER WITHOUT CHALLENGES AND CBI WAS STARTED. URINE HAS BEEN CLEAR COLOR EXCEPT THERE IS SEDIMENT. DISCUSSED CASE WITH HOSPITALIST RESIDENT. RECOMMENDED ct UROGRAM ADVISED BY RADIOLOGY IF RENAL FUNCTION IS NORMAL. IF NOT NORMAL THEN PATIENT WILL NEED CYSTO RETROGRADE PYELOGRAM EVENTUALLY. ALLERGIES: Please see below. HOME MEDICATIONS: Please see below. PAST MEDICAL HISTORY: 1. PROSTATE CANCER. 2. CHRONIC ASPIRIN. 3. ATHEROSCLEROTIC DISEASE PAST SURGICAL HISTORY: 1. XRT FAMILY HISTORY: NON CONTRIBUTARY SOCIAL HISTORY: Marital status and/or living arrangements: PRESENT REVIEW OF SYSTEMS: CONSTITUTIONAL: ALERT ORIENTED X3. HEENT: NO EAR NOSE THROAT PROBLEMS. HAD CATARACT SURGERY 5 YEARS AGO CARDIOVASCULAR: NO CARDIAC ISSUES. RESPIRATORY: NO COPD OR ASTHMA. GENITOURINARY: BLEEDING FROM URETHRA; PROSTATE CANCER. ON FLOMAX CURRENTLY. VOIDS REASONABLY WELL MUSCULOSKELETAL: AMBULATORY; GOOD RANGE OF MOTION. GASTROINTESTINAL: NO CONSTIPATION DIARRHEA. SKIN: AGED NO CANCER. NEUROLOGICAL: ABOVE. PSYCHIATRIC: NO DEPRESSION OR ANXIETY. ENDOCRINE: NO DIABETES OR THYROID DISEASE. HEMATOLOGIC/LYMPHATIC: BLEEDING ON ASPIRIN. ALLERGIC/IMMUNOLOGIC: NO ASTHMA. PHYSICAL EXAMINATION: VITAL SIGNS: Please see below. GENERAL APPEARANCE: ALERT ORIENT X3. HEENT: NO ERYTHEMA; NO EXUDATE. RESPIRATORY: GOOD EXCURSION NO WHEEZE NO STRIDOR. CARDIOVASCULAR: RRR GOOD CAP REFILL NO CYANOSIS. ABDOMEN: PROTUBERENT; SUTTON TO GRAVITY (GENTLE CBI WITH 3l NS). EXTREMITIES: NO CYANOSIS, CLUBBING OR EDEMA. NEUROLOGICAL:ALERT ORIENTED X3. PSYCHIATRIC: NORMAL MOOD AND AFFECT. LABORATORY DATA: Please see below. ASSESSMENT/PLAN: 1. SMALL BLADDER ON CT; DECOMPRESSED SO THICK WALL; IRREGULAR WALL THICKNESS MAY REPRESENT MANY THINGS: CYSTITIS, INFECTION/INFLAMMATION (INCLUDING RADIATION CYSTITIS); CANCER; PROSTATE APPEARS SMALL . 2. HISTORY OF PROSTATE CANCER: PSA PENDING 3. DILATED DISTAL URETER: RECOMMEND CYSTO RETROGRADE POSSIBLE BLADDER URETERAL BIOPSY ONCE THERE IS KNOWLEDGE THAT THE URINARY TRACT IS INFECTION FREE (CULTURE PENDING). ANTIBIOTIC COVERAGE STARTED BY THE HOSPITALIST TEAM. 4. HEMATURIA: BLADDER US TO ENSURE NO CLOT (CAN FILL WITH CBI AND CLAMP THE 3 WAY TEMPORARILY WE GET THE BLADDER US) RENAL US CAN HELP DELINIATE HYDRONEPHROSIS. CT UROGRAM MORE LIKELY TO YIELD BUT IF IN RENAL FAILURE CAN NOT BE ADMINISTERED. NPO AFTER MIDNIGHT JUST IN CASE PROCEDURE CAN BE COMPLETED. WILL DEFER CYSTO CLOT EVACUATION RETROGRADE PYELOGRAM FOR ELECTIVE OUTPATIENT PROCEDURE IF PATIENT URINE CLEARS NICELY AND URINE CULTURE HAS NOT COME BACK. 5. RENAL FAILURE: AVOID IV CONTRAST IF RENAL FAILURE. Vital Signs/I&O Vital Signs Date Time Temp Pulse Resp B/P (MAP) Pulse Ox O2 Delivery O2 Flow Rate FiO2 08/31/18 09:21 106 124/86 08/31/18 07:50 16 96 Room Air 08/31/18 06:25 96.6 Laboratory Data Labs 24H Laboratory Tests 2 08/31/18 06:54: Immature Granulocyte % (Auto) 0.4, White Blood Count 7.2, Red Blood Count 3.84L, Hemoglobin 12.4L, Hematocrit 37.1L, Mean Corpuscular Volume 96.6H, Mean Corpuscular Hemoglobin 32.3, Mean Corpuscular Hemoglobin Concent 33.4, Red Cell Distribution Width 14.4, Platelet Count 142L, Neutrophils (%) (Auto) 76.4H, Lymphocytes (%) (Auto) 6.9L, Monocytes (%) (Auto) 9.7H, Eosinophils (%) (Auto) 6.2H, Basophils (%) (Auto) 0.4, Neutrophils # (Auto) 5.5, Lymphocytes # (Auto) 0.5L, Monocytes # (Auto) 0.7, Eosinophils # (Auto) 0.5, Basophils # (Auto) 0.0, Nucleated Red Blood Cells % (auto) 0.0, Prothrombin Time 13.5, Prothromb Time International Ratio 1.02, Activated Partial Thromboplast Time 28.5, Anion Gap 12, Glomerular Filtration Rate 20.9L, Calcium Level 9.3, Aspartate Amino Transf (AST/SGOT) 18, Alanine Aminotransferase (ALT/SGPT) 16, Alkaline Phosphatase 70, Total Bilirubin 0.7, Direct Bilirubin 0.2, Total Protein 8.3H, Albumin 4.0, Albumin/Globulin Ratio 0.93L 08/31/18 07:49: Urine Color REDH, Urine Appearance CLOUDYH, Urine pH 6.0, Urine Specific [place] 1.009, Urine Protein 2+H, Urine Glucose (UA) NEGATIVE, Urine Ketones NEGATIVE, Urine Blood 3+H, Urine Nitrite NEGATIVE, Urine Bilirubin NEGATIVE, Urine Urobilinogen 0.2, Urine Leukocyte Esterase 3+H, Urine WBC (Auto) TNTCH, Urine RBC (Auto) TNTCH, Urine Hyaline Casts (Auto) 0, Urine Bacteria (Auto) 2+H, Urine Squamous Epithelial Cells 2, Urine Mucus (Auto) SMALL, Urine Sperm (Auto) CBC/BMP Laboratory Tests 08/31/18 06:54 Red Blood Count 3.84 L, Mean Corpuscular Volume 96.6 H, Mean Corpuscular Hemoglobin 32.3, Mean Corpuscular Hemoglobin Concent 33.4, Red Cell Distribution Width 14.4, Neutrophils (%) (Auto) 76.4 H, Lymphocytes (%) (Auto) 6.9 L, Monocytes (%) (Auto) 9.7 H, Eosinophils (%) (Auto) 6.2 H, Basophils (%) (Auto) 0.4, Neutrophils # (Auto) 5.5, Lymphocytes # (Auto) 0.5 L, Monocytes # (Auto) 0.7, Eosinophils # (Auto) 0.5, Basophils # (Auto) 0.0 Microbiology Microbiology 08/31/18 Blood Culture, Received Pending 08/31/18 Blood Culture, Received Pending 08/31/18 Urine Culture, Received Pending Allergies Coded Allergies: No Known Drug Allergy (Verified Allergy, Unknown, 03/29/17) Home Medications Scheduled (Icaps) 1 Cap Cap, 1 CAP PO DAILY, (Reported) (Calcium 600 + D 600-200 mg-Unit) 1 Tab Tab, 1 TAB PO DAILY, (Reported) Allopurinol (Zyloprim) 300 Mg Tab, 300 MG PO DAILY, (Reported) Aspirin (Aspir-81) 81 Mg Tab, 81 MG PO DAILY, (Reported) Cyanocobalamin (Vitamin B12) 1,000 Mcg Tab, 2,500 MCG PO DAILY, (Reported) Ferrous Sulfate (Ferrous Sulfate) 325 Mg Tab, 325 MG PO DAILY, (Reported) Levothyroxine Sodium (Synthroid) 175 Mcg Tab, 175 MCG PO DAILY, (Reported) Lovastatin (Lovastatin) 20 Mg Tab, 20 MG PO DAILY, (Reported) LAST FILLED 05/16/18 Metolazone (Metolazone) 2.5 Mg Tab, 2.5 MG PO QWEEK, (Reported) MONDAYS Metoprolol Succinate (Metoprolol Succinate ER) 50 Mg Tab, 50 MG PO DAILY, (Reported) Torsemide (Torsemide) 100 Mg Tab, 50 MG PO BID, (Reported) Vitamin D (Vitamin D) 1,000 Unit Cap, 1,000 UNIT PO DAILY, (Reported) Mauri Falk MD Aug 31, 2018 11:32
[2018-08-31 13:30] VITALS: BP 136/82
[2018-08-31] MEDS: ALLOPURINOL 300 MG TAB PO SCH (15:57)
[2018-08-31] MEDS: FERROUS SULFATE 325MG TAB PO SCH (15:57)
--- NOTE | 2018-08-31 16:49 | HPE ---
DATE OF ADMISSION: 08/31/2018 PRIMARY CARE PROVIDER: Dr. Mateo Edwards BILINGUAL RECEPTIONIST: Dr. Jayesh Barrios SUPPLY COORDINATOR: Dr. Lanie Meng UROLOGIST: Rosalie Biswas NP WOUND CARE: Dr. 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 He presents with his for new onset of hematuria that started this morning with painful urination. He states that there were no blood clots. He states "I had holes in my bladder from the radiation years ago" and thus he gets frequent spotting. He states he does have a history of kidney stones however he has not had any hematuria from kidney stones in the past. At the time of admission, he denies any other complaints and feels his normal self. No recent fevers, chills, nausea, vomiting, no abnormal discharges, no pelvic pain. He denies any recent travel, sick contacts, changes in medications. PAST MEDICAL HISTORY: 1. Hypertension. 2. Atrial fibrillation, previously on Pradaxa and then Coumadin, which he stopped on his own due to bruising and anemia. 3. CKD stage IV, follows with Dr. Meng. 4. NIDDM2. 5. History of prostate cancer status post radiation about 10-15 years ago. 6. Hyperlipidemia. 7. Hypothyroidism. 8. Chronic venous insufficiency and lymphedema, follows with Dr. Phipps. 9. Gout. 10. Obesity. 11. Kidney stones. ALLERGIES: Oysters cause hives. SURGICAL HISTORY: Bladder cauterization in 04/2013, cataracts 2014, right hemicolectomy due to precancerous polyps in 2017. FAMILY HISTORY: Father had kidney cancer and heart disease. Mother had cancer, he is unsure which type, diabetes. SOCIAL HISTORY: Tobacco, smoked for about 30 years, quit in the 1970s. Alcohol - drinks socially. He lives at home with his and son. 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 REVIEW OF SYSTEMS: GENERAL: Denies any fevers, chills, night sweats, weight loss. HEENT: No headache, blurred vision, eye pain, ear pain, dysphagia. CARDIAC: No palpitations or chest pain. RESPIRATORY: No shortness of breath or wheezing, coughing, or difficulty breathing. GASTROINTESTINAL (GI): No nausea, vomiting, abdominal pain, or changes in bowel habits. GENITOURINARY (): Admits to bright red blood in the urine as of this morning associated with painful urination. No other abnormal discharge. SKIN: Denies any new rashes or lesions or itching. NEURO: Denies any new paresthesias or weaknesses. PHYSICAL EXAMINATION: VITAL SIGNS: Temperature 97.7, pulse 73, respirations 18, blood pressure 136/82 with a mean arterial pressure (MAP) of 100, pulse oximetry 99% on room air. GENERAL: Alert and oriented times three, resting comfortably in bed, no acute distress, fully conversant. HEENT: Normocephalic, atraumatic. Anicteric sclerae. Pupils equal and reactive to light and accommodation. Extraocular muscles intact. Neck supple. Moist mucous membranes. CARDIAC: Irregular rhythm, rate is controlled in the 80s to 90s. He is in atrial fibrillation on the monitor. No audible murmurs or clicks. LUNGS: Clear to auscultation bilaterally. No wheezing, rhonchi, or rales. There is equal chest rise. EXTREMITIES: 2+ radial pulses bilaterally. There is trace pitting edema bilateral lower extremities. He is wearing compression stockings. ABDOMEN: Soft, nontender, nondistended. Positive bowel sounds. Negative for CVA tenderness or suprapubic pain. MUSCULOSKELETAL: Able to move all extremities independently. NEUROLOGIC: No focal deficits. SKIN: No visible rashes, lesions, or ulcerations. LABORATORY DATA: WBC 7.2, hemoglobin and hematocrit 12.4 and 37.1, platelets 142. Sodium 134, potassium 3.2, chloride 9.4, CO2 28, BUN and creatinine 94 and 3.08. Coagulations are normal. Urinalysis (UA) reveals urine was red and cloudy with 2+ protein, 3+ blood, 3+ leukocyte esterase, 2+ bacteria, and too numerous to count WBCs and RBCs. Urine and blood cultures are pending. IMAGING: CT abdomen and pelvis on admission reveals nonspecific significant thickening of bladder wall which could be cystitis. Short segment of significant distention of the distal ureter with a possible ureter lesion status post right hemicolectomy. Cirrhotic liver with splenomegaly and perisplenic and splenorenal varices. Nonobstructing nephrolithiasis and 1.3 cm right upper renal pole lesion that is a possible cyst. ASSESSMENT AND PLAN: 1. Gross hematuria. Differential includes radiation cystitis versus recurrence of malignancy/prostate cancer versus urinary tract infection (UTI) versus nephrolithiasis versus renal cyst. Patient does have a positive urinalysis (UA). Currently urine cultures are pending. Will continue his IV Cipro started in the emergency room (ER). There is concern for ureteral lesion with the recommendation for a CT urogram, however case was discussed with urologist who is considering doing a retrograde pyelogram and cystogram possibly tomorrow. Currently, we will obtain an ultrasound of his bladder and kidneys to further assess if there are any lesions. There is a nonobstructing kidney stone noted on the right which we will also further assess with imaging. Mr. Chaudhary has been started on continuous bladder irrigation in the ER, which on reassessment already appears to have nonbloody, cloudy urine output. Will also check a prostate-specific antigen (PSA) given the concern of malignancy and will also check his urine cytology. Per the recommendation of urology, we will make the patient nothing by mouth after midnight for possible cystogram and retrograde pyelogram tomorrow. His aspirin is on hold given his acute hematuria. 2. For the remainder of his medical conditions, his medications will be continued. 3. Of note, it does not appear in his previous records that he has cirrhosis, however CT on admission does reveal a cirrhotic liver with splenomegaly and perisplenic and splenorenal varices. This will require further workup. 4. His creatinine on admission is 3.08. After speaking with Nephrology, it appears his baseline creatinine is around 2.8. Per nephro, hold current diuretics of torsemide and metolazone, and start D5 half-normal saline overnight. Nephrology has been consulted for his MIRIAM. Appreciate input. 3. Deep venous thrombosis (DVT) prophylaxis. Thromboembolism deterrents (TEDs) and sequential compression devices (SCDs). Avoid anticoagulation given his acute bleed. DISPOSITION: Will admit to the hospitalist service and urology has been consulted. Possible OR tomorrow. My faculty preceptor for this patient encounter was physically present during the encounter and was fully available. All aspects of the patient interview, examination, medical decision making process, and medical care plan development were reviewed and approved by the faculty preceptor. The faculty preceptor is aware and concurs with the plan as stated in the body of this note and will attest to such by his/her cosignature. CARIN
[2018-08-31] MEDS ORDERED: TORSEMIDE (DEMADEX) 50 MG PER 1/2 TAB PO SCH (17:00)
--- NOTE | 2018-08-31 19:23 | ECGEPIP ---
Stationary ECG Study [facility] - ED Test Date: 2018-08-31 Pat Name: REBECCA JAUREGUI Department: Room: - Gender: M Imaging Services Director: [facility] : [id number] Requested By: Hafsa Mosquera Order Number: [id number] Reading MD: Hafsa Mosquera Measurements Intervals [place] Rate: 90 P: SD: 0 QRS: -15 QRSD: 116 T: 75 QT: 413 QTc: 506 Interpretive Statements ATRIAL FIBRILLATION MODERATE INTRAVENTRICULAR CONDUCTION DELAY NONSPECIFIC ST & T-WAVE ABNORMALITY PROLONGED QT INTERVAL LEFTWARD AXIS DEAYED R WAVE PROGRESSION CW 05/14/[address] T WAVE CHANGES Electronically Signed On 08-31-2018 19:23:03 EST by Hafsa Mosquera
[2018-08-31 22:00] VITALS: BP 143/79
[2018-09-01] MEDS ORDERED: D5W/0.45% SODIUM CHLORIDE 1,000 ML IV SCH
[2018-09-01] MEDS ORDERED: DEXTROSE 50% 50 ML SYRINGE IV PRN (00:15)
[2018-09-01] MEDS ORDERED: GLUCAGON FOR INJ 1 MG VIAL (J1610) SC PRN (00:15)
[2018-09-01] MEDS ORDERED: GLUCOSE 4 GM CHEW TABLET PO PRN (00:15)
[2018-09-01] MEDS: HumaLOG INSULIN (NovoLOG) PER UNIT SC SCH ×2 (01:12→06:15)
[2018-09-01] MEDS: LEVOTHYROXINE 25MCG TABLET (0.025MG) PO SCH (05:22)
[2018-09-01] MEDS: LEVOTHYROXINE 150MCG TABLET (0.15MG) PO SCH (05:23)
[2018-09-01 06:00] VITALS: BP 117/64
[2018-09-01 06:29] LABS: HEMATOCRIT 32.2 % (42.0-52.0); HEMOGLOBIN 10.6 g/dl (13.5-17.5); MEAN CORPUSCULAR HEMOGLOBIN 32.2 pg (27.0-33.0); MEAN CORPUSCULAR HGB CONC 32.9 g/dl (32.0-36.5); MEAN CORPUSCULAR VOLUME 97.9 fl (80.0-96.0); PLATELET COUNT, AUTOMATED 130 10^3/uL (150-450); RED BLOOD COUNT 3.29 10^6/uL (4.30-6.10); WHITE BLOOD COUNT 8.8 10^3/uL (4.0-10.0)
[2018-09-01 06:50] LABS: CALCIUM LEVEL 9.1 MG/DL (8.8-10.2); CREATININE FOR GFR 4.77 MG/DL (0.70-1.30); GLOMERULAR FILTRATION RATE 12.6 (>35); POTASSIUM SERUM 3.4 MEQ/L (3.5-5.1)
--- NOTE | 2018-09-01 10:43 | IPNPDOC ---
Text Note Date of Service The patient was seen on 09/01/18. NOTE Subjective: PHYSICAL EXAMINATION: GENERAL: NAD HEENT: NC/AT CARDIAC: irregularly irregular LUNGS: CTA B/L EXTREMITIES: 2+ radial pulses bilaterally. There is trace pitting edema bilateral lower extremities. He is wearing compression stockings. ABDOMEN: soft, NT, +BS A/P: 78 yo male wiwth extensive medical history for gross hematuria. #gross hematuria - broad differential for etiology given medical history - serial H/H - follow as per urology - radiation cystitis versus recurrence of malignancy/prostate cancer versus UTI versus nephrolithiasis versus renal cyst - ultrasound pending report - cancelled urogram 2/ renal disease #UTI - UCx pending - continue antimicrobial therapy #liver cirrhosis #MIRIAM/CKD - follow as per nephrology #Afib - pradaxa previously d/c 2/ anemia #HLD #hypothyroidism #HTN #History of prostate cancer status post radiation about 10-15 years ago. #Chronic venous insufficiency and lymphedema, follows with Dr. Phipps. #Gout. #Obesity. #DVT prophyalxis - mechanical VS,Fishbone, I+O VS, Fishbone, I+O Laboratory Tests 09/01/18 06:03 Red Blood Count 3.29 L, Mean Corpuscular Volume 97.9 H, Mean Corpuscular Hemoglobin 32.2, Mean Corpuscular Hemoglobin Concent 32.9, Red Cell Distribution Width 14.6 H, Calcium Level 9.1 Vital Signs Date Time Temp Pulse Resp B/P (MAP) Pulse Ox O2 Delivery O2 Flow Rate FiO2 09/01/18 06:00 98.2 77 17 117/64 (81) 96 08/31/18 12:54 Room Air I&O- Last 24 Hours up to 6 AM 09/01/18 06:00 Intake Total 1350 ml Output Total 525 ml Balance 825 ml DAMIR MONTES DE OCA MD Sep 01, 2018 10:43
--- NOTE | 2018-09-01 11:58 | IPNPDOC ---
Date Seen The patient was seen on 09/01/18. Progress Note SUBJECTIVE: Patient is a 78yo male; cbi going and is clear. irrigation shows some minimal debris, could be infection or tumor. cr minimally worse with no hydro except distal ureteral dilation (left). OBJECTIVE REVIEW OF SYSTEMS: CONSTITUTIONAL: ALERT ORIENTED X3. HEENT: NO EAR NOSE THROAT PROBLEMS. HAD CATARACT SURGERY 5 YEARS AGO CARDIOVASCULAR: NO CARDIAC ISSUES. RESPIRATORY: NO COPD OR ASTHMA. GENITOURINARY: BLEEDING FROM URETHRA; PROSTATE CANCER. ON FLOMAX CURRENTLY. VOIDS REASONABLY WELL MUSCULOSKELETAL: AMBULATORY; GOOD RANGE OF MOTION. GASTROINTESTINAL: NO CONSTIPATION DIARRHEA. SKIN: AGED NO CANCER. NEUROLOGICAL: ABOVE. PSYCHIATRIC: NO DEPRESSION OR ANXIETY. ENDOCRINE: NO DIABETES OR THYROID DISEASE. HEMATOLOGIC/LYMPHATIC: BLEEDING ON ASPIRIN. ALLERGIC/IMMUNOLOGIC: NO ASTHMA. PHYSICAL EXAMINATION: VITAL SIGNS: Please see below. GENERAL APPEARANCE: ALERT ORIENT X3. HEENT: NO ERYTHEMA; NO EXUDATE. RESPIRATORY: GOOD EXCURSION NO WHEEZE NO STRIDOR. CARDIOVASCULAR: RRR GOOD CAP REFILL NO CYANOSIS. ABDOMEN: PROTUBERANT; SUTTON TO GRAVITY (GENTLE CBI WITH 3l NS). EXTREMITIES: NO CYANOSIS, CLUBBING OR EDEMA. NEUROLOGICAL:ALERT ORIENTED X3. PSYCHIATRIC: NORMAL MOOD AND AFFECT. LABORATORY DATA: Please see below. ASSESSMENT/PLAN: 1. SMALL BLADDER ON CT; DECOMPRESSED SO THICK WALL; IRREGULAR WALL THICKNESS MAY REPRESENT MANY THINGS: CYSTITIS, INFECTION/INFLAMMATION (INCLUDING RADIATION CYSTITIS); CANCER; PROSTATE APPEARS SMALL . 2. ultrasound today: shows little bladder debris; there may distal left hydronephrosis. 3. DILATED DISTAL URETER: RECOMMEND CYSTO RETROGRADE POSSIBLE BLADDER URETERAL BIOPSY ONCE THERE IS KNOWLEDGE THAT THE URINARY TRACT IS INFECTION FREE (CULTURE PENDING). ANTIBIOTIC COVERAGE STARTED BY THE HOSPITALIST TEAM. await culture prior to cysto possible ureteroscopy bladder or ureteral biopsy management. will have to defer urogram. 4. HEMATURIA: BLADDER US TO ENSURE NO CLOT (CAN FILL WITH CBI AND CLAMP THE [address] WAY TEMPORARILY WE GET THE BLADDER US) RENAL US CAN HELP DELINEATE HYDRONEPHROSIS. CT UROGRAM MORE LIKELY TO YIELD BUT IF IN RENAL FAILURE CAN NOT BE ADMINISTERED. NPO AFTER MIDNIGHT JUST IN CASE PROCEDURE CAN BE COMPLETED. WILL DEFER CYSTO CLOT EVACUATION RETROGRADE PYELOGRAM FOR ELECTIVE OUTPATIENT PROCEDURE IF PATIENT URINE CLEARS NICELY AND URINE CULTURE HAS NOT COME BACK. recommend cytology. possible tumor at the distal ureter. 5. RENAL FAILURE: AVOID IV CONTRAST IF RENAL FAILURE. 6. HISTORY OF PROSTATE CANCER: PSA PENDING; pt reports only radiation therapy (prostate and sv's appear to be still present on ct) 7. wean cbi to off as urine clears. 8. taught rn cbi irrigation. LABORATORY DATA, IMAGING STUDIES, MICROBIOLOGY: Please see below. DISPOSITION: unsure; per hospitalist. VS, I&O, 24H, Fishbone Vital Signs/I&O Vital Signs Date Time Temp Pulse Resp B/P (MAP) Pulse Ox O2 Delivery O2 Flow Rate FiO2 09/01/18 06:00 98.2 77 17 117/64 (81) 96 08/31/18 12:54 Room Air I&O- Last 24 Hours up to 6 AM 09/01/18 06:00 Intake Total 1350 ml Output Total 525 ml Balance 825 ml Laboratory Data 24H LABS Laboratory Tests 2 09/01/18 06:03: Nucleated Red Blood Cells % (auto) 0.0, Anion Gap 9, Glomerular Filtration Rate 12.6L, Blood Urea Nitrogen 106H, Creatinine 4.77#H, Sodium Level 132L, Potassium Level 3.4L, Chloride Level 95L, Carbon Dioxide Level 28, Calcium Level 9.1 CBC/BMP Laboratory Tests 09/01/18 06:03 Red Blood Count 3.29 L, Mean Corpuscular Volume 97.9 H, Mean Corpuscular Hemoglobin 32.2, Mean Corpuscular Hemoglobin Concent 32.9, Red Cell Distribution Width 14.6 H, Calcium Level 9.1 Microbiology Microbiology 08/31/18 Blood Culture - Preliminary, Resulted No growth after 24 hours . All specim... 08/31/18 Blood Culture - Preliminary, Resulted No growth after 24 hours . All specim... 08/31/18 Stool Occult Blood (SHER) - Final, Complete 08/31/18 Urine Culture, Received Pending Mauri Falk MD Sep 01, 2018 11:58
[2018-09-01] MEDS: CIPROFLOXACIN 400 MG in APPROPRIATE DILUENT 1 EA IV SCH (12:02)
[2018-09-01] MEDS: SIMVASTATIN 20 MG TAB PO SCH (12:03)
[2018-09-01] MEDS: CYANOCOBALAMIN 500 MCG TAB PO SCH (12:03)
[2018-09-01] MEDS: VITAMIN D 1,000 INTERNATIONAL UNITS TABLET PO SCH (12:03)
[2018-09-01] MEDS: METOPROLOL SUCC (TopROL XL) 50MG **XL** TAB PO SCH (12:04)
[2018-09-01] MEDS: ALLOPURINOL 300 MG TAB PO SCH (12:04)
[2018-09-01] MEDS: FERROUS SULFATE 325MG TAB PO SCH (12:04)
[2018-09-01 14:00] VITALS: BP 136/67
[2018-09-01 22:00] VITALS: BP 125/57
[2018-09-02] MEDS: LEVOTHYROXINE 150MCG TABLET (0.15MG) PO SCH (05:43)
[2018-09-02] MEDS: LEVOTHYROXINE 25MCG TABLET (0.025MG) PO SCH (05:43)
[2018-09-02 06:00] VITALS: BP 135/92
[2018-09-02 06:14] LABS: HEMATOCRIT 31.9 % (42.0-52.0); HEMOGLOBIN 10.8 g/dl (13.5-17.5); MEAN CORPUSCULAR HEMOGLOBIN 32.3 pg (27.0-33.0); MEAN CORPUSCULAR HGB CONC 33.9 g/dl (32.0-36.5); MEAN CORPUSCULAR VOLUME 95.5 fl (80.0-96.0); PLATELET COUNT, AUTOMATED 121 10^3/uL (150-450); RED BLOOD COUNT 3.34 10^6/uL (4.30-6.10); WHITE BLOOD COUNT 7.2 10^3/uL (4.0-10.0)
[2018-09-02 06:32] LABS: CALCIUM LEVEL 8.6 MG/DL (8.8-10.2); CREATININE FOR GFR 6.04 MG/DL (0.70-1.30); GLOMERULAR FILTRATION RATE 9.6 (>35); POTASSIUM SERUM 3.5 MEQ/L (3.5-5.1)
[2018-09-02] MEDS: CYANOCOBALAMIN 500 MCG TAB PO SCH (08:16)
[2018-09-02] MEDS: FERROUS SULFATE 325MG TAB PO SCH (08:17)
[2018-09-02] MEDS: ALLOPURINOL 300 MG TAB PO SCH (08:17)
[2018-09-02] MEDS: SIMVASTATIN 20 MG TAB PO SCH (08:17)
[2018-09-02] MEDS: VITAMIN D 1,000 INTERNATIONAL UNITS TABLET PO SCH (08:17)
[2018-09-02] MEDS: CIPROFLOXACIN 400 MG in APPROPRIATE DILUENT 1 EA IV SCH (08:17)
[2018-09-02] MEDS: METOPROLOL SUCC (TopROL XL) 50MG **XL** TAB PO SCH (08:18)
[2018-09-02 08:51] LABS: CHOLESTEROL RISK RATIO 4.058 (<5)
[2018-09-02] MEDS ORDERED: metOLazone 2.5 MG TAB PO SCH (09:00)
--- NOTE | 2018-09-02 09:39 | REP ---
BLADDER ULTRASOUND: Real-time sonographic evaluation of bladder performed. There is a Haskins catheter in place. Haskins balloon is seen within the bladder. The Haskins catheter was clamped 4 hours prior to the procedure. Bladder contains a small amount of fluid and measures approximately 5.9 x 2.6 x 2.2 cm for a total volume of about 18 mL. Prostate measures 5.9 x 3.0 x 4.1 cm for a total volume of about 38 mL. Due to suboptimal distention, the bladder is not well evaluated for underlying mass, wall thickening, or calculi. Electronically Signed by Mateo Torres MD 09/02/2018 10:37 P
--- NOTE | 2018-09-02 09:46 | REP ---
RENAL ULTRASOUND: Real-time sonographic evaluation of kidneys performed. Kidneys are normal in size, right kidney measuring 13.8 x 4.5 x 5.4 cm and left kidney 13.1 x 5.4 x 5.5 cm. There is no nephrolithiasis or renal mass bilaterally. There appears to be a calculus in the lower pole of the right kidney 8 mm in diameter. The small hyperdense nodule in the upper pole of the right kidney is not visualized by ultrasound. Electronically Signed by Mateo Torres MD 09/02/2018 10:37 P
[2018-09-02] MEDS ORDERED: LIDOCAINE 2% MDV 20 ML VIAL As Ordered ONE (10:12)
[2018-09-02] MEDS ORDERED: HEPARIN 1,000 UNITS/ML 10ML VIAL (FOR RADIOLOGY& DIALYSIS ONLY) As Ordered ONE (10:12)
[2018-09-02 10:39] LABS: HEPATITIS B CORE ANTIBODY IGM NEGATIVE (NEGATIVE); HEPATITIS B SURFACE ANTIBODY NEGATIVE (POSITIVE); HEPATITIS B SURFACE ANTIGEN NEGATIVE (NEGATIVE); HEPATITIS C VIRUS ABY INDEX 0.1 INDEX (<0.8)
[2018-09-02] MEDS ORDERED: HEPARIN 1,000 UNITS/ML 10ML VIAL (FOR RADIOLOGY& DIALYSIS ONLY) IV ONE (12:15)
[2018-09-02] MEDS ORDERED: HEPARIN 1,000 UNITS/ML 10ML VIAL (FOR RADIOLOGY& DIALYSIS ONLY) XX ONE (12:15)
[2018-09-02 14:00] VITALS: BP 158/72
--- NOTE | 2018-09-02 20:36 | CR ---
DATE OF CONSULTATION: 09/01/2018 REQUESTING PHYSICIAN: Dr. Gabriel Jacobs REASON FOR CONSULTATION: Acute kidney injury (MIRIAM) on chronic kidney disease stage IV in this gentleman with a 1-day history of hematuria. HISTORY OF PRESENT ILLNESS: Mr. Jeffrey Chaudhary is an 78-year-old male, established office patient of Dr. Brice with a past medical history of chronic kidney disease stage IV with a baseline creatinine of about 2 to 2.5, and also a past medical history of prostate cancer, status post remote radiation therapy. History of chronic venous insufficiency and lymphedema, hypothyroidism, dyslipidemia, non-insulin dependent type 2 diabetes, atrial fibrillation - no longer on anticoagulation, hypertension, and a history of nephrolithiasis and other medical conditions mentioned below. The patient was last seen in the nephrology office in July 2018 where he was noted to have a minor bump in creatinine up to 2.7. At that time, his diuretics were modified and slightly reduced. The patient states he was in his usual state of health until 1 day prior to admission when he noted gross hematuria. He denied passing any blood clots in the urine stream, and he denies any recent renal colic or gravel or sediment in the urine. On admission, his creatinine was noted to be increased to 3.0. PAST MEDICAL HISTORY: 1. Chronic kidney disease stage IV. Baseline creatinine around 2.1 to 2.5. 2. Hypertension. 3. Atrial fibrillation - no longer on anticoagulation. 4. Type 2 diabetes, non-insulin dependent. 5. History of prostate cancer with prior radiation therapy. 6. Dyslipidemia. 7. Hypothyroidism. 8. Chronic venous insufficiency and lymphedema. 9. History of gout. 10. Obesity. 11. History of kidney stones. ALLERGIES: No known drug allergies. HOME MEDICATIONS: - allopurinol - aspirin - calcium - B12 - iron - Synthroid - lovastatin - metolazone - metoprolol - torsemide - vitamin D SURGICAL HISTORY: Patient reports a history of urologic interventions a few times over the past two decades, but is unable to go into detail regarding the procedures. He also notes cataract and right hemicolectomy. FAMILY HISTORY: He denies any family history of kidney failure requiring dialysis. There is a history of cancer in the family. SOCIAL HISTORY: He is an ex-smoker. He drinks socially. He is retired. REVIEW OF SYSTEMS: GENERAL: He denies fevers, chills, or weight loss. EYES: He denies visual tearing or blurriness of vision. ENT: He denies dysphagia, rhinorrhea. CARDIAC: He denies palpitations or chest pain. RESPIRATORY: He denies shortness of breath or cough. GASTROINTESTINAL (GI): He denies nausea, vomiting, or diarrhea. GENITOURINARY (): He reports a 1-day history of hematuria, as mentioned in the history of the present illness. He denies sensation of incomplete void. ENDOCRINE: He reports hypothyroidism and non-insulin dependent diabetes. MUSCULOSKELETAL: He reports a history of gout. He denies any new arthralgias or myalgias. HEMATOLOGIC: He denies any current anticoagulation. He denies any other episodes of bleeding in the recent past weeks. He reports anemia. SKIN: He denies new rashes or lesions. NEUROLOGIC: He denies any syncope, seizure, or new weakness. PHYSICAL EXAMINATION: Temperature 98.2, pulse 77, respiratory rate 17, blood pressure 117/64, saturating 96% on room air. Intake yesterday was 990. Urine output yesterday was 200. GENERAL: The patient is seen and examined at the bedside. Elderly male, no acute distress. Extraocular muscles are intact. Tongue is moist. Neck is supple. Jugular veins are not elevated. He is comfortable on room air. Heart sounds are irregularly irregular. S1, S2. There is chronic pitting edema present from the mid baires down. Lungs are clear to auscultation bilaterally. The abdomen is soft and nontender. There are bowel sounds. Genitourinary: Shows Haskins catheter to gravity. The continuous bladder irrigation is not going on at present. Neurologic: He is awake, alert, oriented times three. No focal deficit. Psychiatric: Appropriate mood and affect. LABORATORY: White count 8.8, hemoglobin 10.6, platelets 130. Sodium 132, potassium 3.4, bicarbonate 28, BUN 106, creatinine 4.7. Microbiology: Blood cultures with no growth for 24 hours times two sets. Urine culture is pending. IMAGING: CT abdomen and pelvis, noncontrast, 08/31/2018 shows thickening of the bladder wall, nonspecific and significant distention of the distal left ureter, cirrhotic liver with splenomegaly and perisplenic and splenorenal varices and nonobstructing nephrolithiasis. INPATIENT MEDICATIONS: He is receiving Cipro 400 mg IV daily, allopurinol 300 mg by mouth daily, ferrous sulfate 325 mg by mouth daily, D5 half normal saline (NS) 60 mL an hour, Synthroid 150 mcg by mouth daily, metoprolol 50 mg by mouth daily, Zocor 20 mg by mouth daily, vitamin D 1000 units by mouth daily. On this admission, he also received one dose of Lasix 80 mg by mouth, lisinopril 2.5 mg times one dose, and a dose of spironolactone 50 mg by mouth times one as well. PROBLEMS: 1. Acute kidney injury superimposed on chronic kidney disease stage IV in this gentleman with a 1-day history of hematuria and prior history of prostate cancer with a history of radiation therapy. His baseline creatinine is around 2.5. His admission creatinine was 3.0. He is having a brisk rise in serum creatinine. His nephrotoxics have appropriately been held. He did receive one dose of spironolactone, Lasix and lisinopril, and I have discussed with the primary team to hold diuretics at present and to hold angiotensin-converting enzyme (HELEN) inhibitor as well. He is receiving gentle IV hydration. Urology is seeing him. There is significant distention of the left distal ureter, the etiology of which is unknown. He is status post continuous bladder irrigation. His urine has now cleared up. He is high risk to progress for dialysis needs, and I have advised him of the same. There is no urgent need for dialysis today. In view of renal failure with hematuria, I have also sent targeted serologies, though I do not feel that this is likely to be an acute glomerulonephritis. 2. Systolic congestive heart failure. No recent echocardiogram available for review. Last one was from 2012, showed moderate systolic dysfunction. Patient states he has chronic lower extremity edema. At home, he is on diuretic regimen of torsemide and metolazone. Diuretics are presently held due to worsening renal failure. He is receiving gentle IV fluids. His volume status is acceptable at present, and we will keep a close eye on him from a respiratory point of view. 3. Hyponatremia. It is mild and related to renal failure and hypotonic fluid administration. No specific intervention at present. Thank you for involving me in the care of Mr. Chaudhary. I will be happy to follow him along with you.
--- NOTE | 2018-09-02 20:40 | IPNPDOC ---
Text Note Date of Service The patient was seen on 09/02/18. NOTE Subjective: Pt examined at bedside. No acute complaints or reported events ov ernight. CBI d/c'ed this am and Haskins has clear cloudy output. No longer having any pain. PHYSICAL EXAMINATION: GENERAL: NAD, resting comfortably HEENT: NC/AT, EOMI, anicteric sclera, supple CARDIAC: irregularly irregular, chronic AFib LUNGS: CTA B/L EXTREMITIES: 2+ radial pulses bilaterally. Trace pitting edema b/l lower extremities ABDOMEN: soft, NT, +BS A/P: 78 yo male with extensive medical history for gross hematuria. #gross hematuria - improved after CBI-d/c'ed today. Urology want o/p f/u and have signed off - broad differential: radiation cystitis versus recurrence of malign steve/prostate cancer versus UTI versus nephrolithiasis versus renal cyst for etiology given medical history - H/H remain stable, urine cytology pending #MIRIAM/CKD - follow as per nephrology - Cr lisa to 6 today. Pt will have PermaCath placed today and start HD - Likely related to hematuria and nephrolithiasis worsening his CKD. Renal workup pending #UTI - UCx pending - continue IV Cipro started 09/01 #liver cirrhosis -obtaining o/p records before starting inpatient workup #Afib - pradaxa previously d/c 08/24 anemia - ASA on hold given acute bleed #NIDDM2 #HLD #hypothyroidism #HTN #History of prostate cancer status post radiation about 10-15 years ago. #Chronic venous insufficiency and lymphedema, follows with Dr. Phipps. #Gout. #Obesity. DVT ppx: mechanical given acute bleed DISPO: pending clinical improvement & PT. VS,Fishbone, I+O VS, Fishbone, I+O Laboratory Tests 09/02/18 05:59 Red Blood Count 3.34 L, Mean Corpuscular Volume 95.5, Mean Corpuscular Hemoglobin 32.3, Mean Corpuscular Hemoglobin Concent 33.9, Red Cell Distribution Width 14.7 H Vital Signs Date Time Temp Pulse Resp B/P (MAP) Pulse Ox O2 Delivery O2 Flow Rate FiO2 09/02/18 14:00 97.4 73 20 158/72 (100) 99 08/31/18 12:54 Room Air I&O- Last 24 Hours up to 6 AM 09/02/18 06:00 Intake Total 840 ml Output Total 350 ml Balance 490 ml GME ATTESTATION GME ATTESTATION My faculty preceptor for this patient encounter was physically present during the encounter and was fully available. All aspects of the patient interview, examination, medical decision making process, and medical care plan development were reviewed and approved by the faculty preceptor. The faculty preceptor is aware and concurs with the plan as stated in the body of this note and will attest to such by his/her cosignature. CLARK COMER DO Sep 02, 2018 20:40
--- NOTE | 2018-09-02 20:44 | ROOPDOC ---
[facility] Report Of Operation Report of Operation DATE OF PROCEDURE: 09/02/2017 PREPROCEDURE DIAGNOSES: Acute renal failure requiring access for renal replacement therapy. POSTPROCEDURE DIAGNOSES: Acute renal failure requiring access for renal replacement therapy. PROCEDURE: Ultrasound guided right internal jugular vein cannulation. Fluoroscopic guided right internal jugular vein 19 cm tip to cuff tunneled central venous catheter insertion. ATTENDING SURGEON: DR. Rodolfo Tim M.D. CHARGE ENTRY CLERK: Berna Madrid INDICATION:Patient is an 78-year-old male who has acute renal failure who requires access for renal replacement therapy. Patient will undergo ultrasound and fluoroscopic guided placement of a right internal jugular vein tunneled central venous catheter. The procedure was described and explained to the patient in detail including drawing of pictures demonstrating the procedure and anatomy. Risks, benefits and alternative treatment options were discussed with the patient. Alternative treatment options included but were not limited to no intervention. Benefits included but were not limited to access for hemodialysis until permanent access for renal replacement therapy is created. Risks included, but were not limited to infection, bleeding, pneumothorax, hemothorax, cannulation site deep venous thrombosis, possible need for open surgical intervention, allergic reaction or complication from prepping and draping materials, possible need for transfusion of blood products, anesthetic complications, cerebrovascular accident, myocardial infarction, pulmonary embolus, deep venous thrombosis, loss of limb, loss of life, poor satisfaction and poor outcome. Risks of not performing the procedure included but were not limited to inability to obtain renal replacement therapy via hemodialysis and . The patient's questions were answered. The patient voices understanding of these risks, benefits and alternative treatment options. The patient voices acceptance of the risks associated with the procedure and agrees to proceed with an ultrasound and fluoroscopic guided right internal jugular vein tunneled central venous catheter insertion. There were no promises or guarantees made to the patient regarding the outcome or results of the procedure. ANESTHESIA: Local with 20 mL of 2% lidocaine. EBL: 5 ml. IVF: 120 ml. FLUORO TIME: 0.1 minutes. CONTRAST: None. COMPLICATIONS: None. DRAINS: None. SPECIMENS: None. IMPLANTS: Right internal jugular vein tunneled central venous catheter with use of a 19 cm tip to cuff [place] hemodialysis catheter. DESCRIPTION OF PROCEDURE: Patient was taken to the angiography suite, placed supine on the angiography room table and then prepped and draped in a standard surgical fashion. A timeout was conducted by myself and the team members in the room confirming the correct patient, procedure and laterality. Ultrasound g uidance was used to cannulate the right internal jugular vein using a micropuncture needle after anesthetizing the overlying skin and subcutaneous tissue with 2% lidocaine. The cannulation of the right internal jugular vein was performed with real-time concurrent visualization of the entry of the micropuncture needle into the right internal jugular vein with a hardcopy image preserved. The ultrasound showed the right internal jugular vein to be widely patent, easily compressible and free of thrombus. The micropuncture wire was advanced through the micropuncture needle which was upsized to a micropuncture sheath. An Amplatz wire was advanced through the micropuncture sheath which was then used to sequentially dilate the right internal jugular vein under fl uoroscopic guidance. An introducer sheath was then placed over the Amplatz wire and the wire was removed. The catheter was tunneled through a puncture wound in the right chest after anesthetizing the overlying skin and subcutaneous tissue with 2% lidocaine and brought out through a puncture wound at the right internal jugular vein entry site. The catheter was then advanced through the introducer sheath which had been positioned under fluoroscopic guidance. The catheter was positioned under fluoroscopic guidance with the tip in the superior vena cava right atrial junction. Both ports of the catheter were aspirated, noted to aspirate easily and then flushed with heparinized saline. The catheter was secured to the right anterior chest wall using #2-0 Prolene suture after anesthetizing the overlying skin and subcutaneous tissue with 2% lidocaine. The puncture wound in the right neck was closed using #4-0 Monocryl in inverted interrupted fashion. Dressings were applied. The patient tolerated the procedure well. All instrument, sponge and needle counts were correct at the end of the case. There were no complications. Dr. Tim was present for and directed the entire case. Patient was transferred to the recovery area and subsequently to the hemodialysis unit in stable condition. The tunneled central venous catheter is stable for use for hemodialysis access. RADIOLOGIC SUPERVISION AND INTERPRETATION: The initial ultrasound showed the right internal jugular vein to be easily compressible, widely patent and free of thrombus. Ultrasound was used to guide cannulation of the right internal jugular vein with real-time concurrent visualization of the entry of the needle into the right internal jugular vein with a hardcopy image preserved. Fluoroscopic guidance was then used to sequentially dilate the right internal jugular vein, place and introducer sheath and position the catheter with the tip in the superior vena cava/right atrial junction. Final fluoroscopic image showed the catheter to be in good position and good alignment with no pneumo- or hemothorax noted with the tip in the superior vena cava/right atrial junction. The tunneled central venous catheter is stable for use for hemodialysis access. Kai Tim MD Sep 02, 2018 20:44
[2018-09-02 22:00] VITALS: BP 106/58
--- NOTE | 2018-09-02 22:09 | IPN ---
DATE: 09/02/2018 SUBJECTIVE: The patient is seen and examined this morning at the bedside. He denies any acute overnight events or issues. Denies any shortness of breath or dyspnea on exertion. He is saturating comfortably on room air. Labs show worsening renal function, BUN up to 124 today with creatinine 6.0. His urine output does seem to be improving. I discussed with him that he will require hemodialysis and discussed the benefits, risks and alternatives. He is agreeable to proceed. Temperature 97.4, pulse 91, respiratory rate 17, blood pressure 135/92, saturating 96% to 99% on room air. Intake yesterday was 1200, urine output yesterday was 850, urine output thus far today is 900. Weight in the bed scale today is not recorded. General: The patient is seen this morning at the bedside and he is again seen in the afternoon on hemodialysis receiving his first treatment. Elderly male, in no acute distress. Extraocular muscles intact. Tongue is moist. Neck is supple. There is a tunneled right internal jugular hemodialysis catheter in use. Heart sounds are irregularly irregular. Lungs are clear to auscultation bilaterally. No crackles or rales. Abdomen is soft, obese and nontender. The lower extremities show some chronic edema from the midshin down. Neurologic: He is oriented times three, interactive, conversational. No focal deficit. Psychiatric: Appropriate mood and affect. LABORATORY: Sodium 133, potassium 3.5, BUN 124, creatinine 6.0, hemoglobin 10.8. Renal ultrasound 09/01: Right kidney 13.8 cm, left kidney 13.1 cm. The small hyperdense nodule seen on CAT scan is not visualized by ultrasounds. There is no hydronephrosis. INPATIENT MEDICATIONS: Reviewed by myself, the patient is off of IV fluids. No other medications changes are noted. PROBLEMS: 1. Acute on chronic renal failure, underlying chronic kidney disease (CKD), stage IV, now with BUN of 126 and creatinine of 6 in this patient with one day complaint of gross hematuria, status post continuous bladder irrigation with CT evidence of distension of left ureter, but no venkat hydronephrosis. Urology does not plan for any inpatient procedure. I discussed with the patient that he will require hemodialysis in view of the worsening renal failure. We will plan for first treatment of 2 1/2 hours with no fluid removal in view of the timing of hematuria and worsening renal failure. Serologies have also been sent and are pending, though acute glomerulonephritis is less likely. A nuclear renal scan might be of some help in delineating flow defects without having any contrast base nephrotoxicity. 2. History of systolic congestive heart failure. At present, his volume status is acceptable. His urine output does seem to be improving. I am not going to remove any fluids with his first dialysis treatment today. He is off of IV fluids. Please continue to hold his home diuretics. He is also not suitable for any HELEN inhibitor or angiotensin receptor edandra.
[2018-09-03] MEDS: LEVOTHYROXINE 150MCG TABLET (0.15MG) PO SCH (05:15)
[2018-09-03] MEDS: LEVOTHYROXINE 25MCG TABLET (0.025MG) PO SCH (05:15)
[2018-09-03 06:00] VITALS: BP 108/56
[2018-09-03 06:58] LABS: HEMATOCRIT 32.4 % (42.0-52.0); HEMOGLOBIN 10.6 g/dl (13.5-17.5); MEAN CORPUSCULAR HEMOGLOBIN 32.4 pg (27.0-33.0); MEAN CORPUSCULAR HGB CONC 32.7 g/dl (32.0-36.5); MEAN CORPUSCULAR VOLUME 99.1 fl (80.0-96.0); PLATELET COUNT, AUTOMATED 113 10^3/uL (150-450); RED BLOOD COUNT 3.27 10^6/uL (4.30-6.10); WHITE BLOOD COUNT 6.3 10^3/uL (4.0-10.0)
[2018-09-03 07:17] LABS: CALCIUM LEVEL 8.5 MG/DL (8.8-10.2); CREATININE FOR GFR 4.37 MG/DL (0.70-1.30); POTASSIUM SERUM 3.9 MEQ/L (3.5-5.1)
[2018-09-03] MEDS: CIPROFLOXACIN 400 MG in APPROPRIATE DILUENT 1 EA IV SCH (08:45)
[2018-09-03] MEDS: ALLOPURINOL 300 MG TAB PO SCH (08:46)
[2018-09-03] MEDS: SIMVASTATIN 20 MG TAB PO SCH (08:46)
[2018-09-03] MEDS: CYANOCOBALAMIN 500 MCG TAB PO SCH (08:47)
[2018-09-03] MEDS: METOPROLOL SUCC (TopROL XL) 50MG **XL** TAB PO SCH (08:48)
[2018-09-03] MEDS: FERROUS SULFATE 325MG TAB PO SCH (08:48)
[2018-09-03] MEDS: VITAMIN D 1,000 INTERNATIONAL UNITS TABLET PO SCH (08:48)
--- NOTE | 2018-09-03 10:23 | IPNPDOC ---
Text Note Date of Service The patient was seen on 09/03/18. NOTE Subjective: Pt examined at bedside. No acute complaints or reported events ov ernight. Continues to have clear output in Haskins. Underwent first dialysis session yesterday and tolerated well. Cleared PT this am. PHYSICAL EXAMINATION: GENERAL: NAD, resting comfortably HEENT: NC/AT, EOMI, anicteric sclera, supple CARDIAC: irregularly irregular, chronic AFib LUNGS: CTA B/L. Permacath present rt chest wall EXTREMITIES: 2+ radial pulses bilaterally. No edema b/l lower extremities ABDOMEN: soft, NT, +BS A/P: 78 yo male with extensive medical history for gross hematuria. #gross hematuria - improved after CBI-d/c'ed 09/02. Urology want o/p f/u and have signed off - broad differential: radiation cystitis versus UTI versus nephrolithiasis versus renal cyst for etiology given medical history - H/H remain stable, urine cytology neg for malignancy and PSA WNL @ 0.059 = less likely bladder/prostate malignancy #MIRIAM/CKD - follow as per nephrology. Underwent dialysis first session yesterday. Cr from 6 to 4.37 today - Likely related to hematuria and nephrolithiasis worsening his CKD. Renal workup pending - Per Neprho, will likely repeat dialyze tomorrow again. PFS consulted to confirm outpatient dialysis seat #UTI - UCx + E.Faecalis and Strep Sanguinis - IV Cipro started 09/01. Per Pharmacy-will switch to po Amoxicillin per sensitivities and pt currently being on HD #liver cirrhosis -pending o/p records before starting inpatient workup #Afib - pradaxa previously d/c 08/24 anemia - will resume ASA and monitor for bleed #NIDDM2 #HLD #hypothyroidism #HTN #History of prostate cancer status post radiation about 10-15 years ago. #Chronic venous insufficiency and lymphedema, follows with Dr. Phipps. #Gout. #Obesity. DVT ppx: mechanical given acute bleed DISPO: Cleared PT. Pending clinical improvement & PFS seeking o/p dialysis chair. VS,Fishbone, I+O VS, Fishbone, I+O Laboratory Tests 09/03/18 06:17 Red Blood Count 3.27 L, Mean Corpuscular Volume 99.1 H, Mean Corpuscular Hemoglobin 32.4, Mean Corpuscular Hemoglobin Concent 32.7, Red Cell Distribution Width 14.6 H, Calcium Level 8.5 L Vital Signs Date Time Temp Pulse Resp B/P (MAP) Pulse Ox O2 Delivery O2 Flow Rate FiO2 09/03/18 08:48 80 106/59 09/03/18 06:00 97.9 19 96 08/31/18 12:54 Room Air I&O- Last 24 Hours up to 6 AM 09/03/18 06:00 Intake Total 1110 ml Output Total 1700 ml Balance -590 ml GME ATTESTATION GME ATTESTATION My faculty preceptor for this patient encounter was physically present during the encounter and was fully available. All aspects of the patient interview, examination, medical decision making process, and medical care plan development were reviewed and approved by the faculty preceptor. The faculty preceptor is aware and concurs with the plan as stated in the body of this note and will attest to such by his/her cosignature. CLARK COMER DO Sep 03, 2018 10:22
[2018-09-03] MEDS: ASPIRIN 81 MG ENTERIC TAB PO SCH (13:38)
[2018-09-03 14:00] VITALS: BP 126/71
[2018-09-03 14:58] LABS: PSA TOTAL <0.1 ng/mL (0.0-4.0)
--- NOTE | 2018-09-03 16:07 | REP ---
RENAL NUCLEAR SCAN WITH FLOW AND FUNCTION: Following the intravenous administration of 8.6 millicuries technetium 99M mag 3, immediate flow images were obtained in the posterior projection showing fairly symmetrical blood flow. Delayed images are performed ever minute for a period of 30 minutes in the posterior projection. There are symmetrical cortical uptake bilaterally in bilateral excretion into the collecting systems. There is mild pelviectasis on the right and mild caliectasis in the upper poles bilaterally. Left ureter is visualized and is mildly dilated distally. Split function is 53.6% on the left and 46.4% on the right. Time to peak is elevated bilaterally, at 11 minutes on the left and 12 minutes on the right. T1/2 could not be calculated as renal function curves are upward sloping and plateaued in a symmetrical fashion. IMPRESSION: Mild pelviectasis right kidney and mild bilateral caliectasis in the upper poles bilaterally. These findings resolved with the patient sitting upright. There is mild persistent dilatation of the distal left ureter. There is mildly compromised renal function bilaterally. Electronically Signed by Mateo Torres MD 09/04/2018 10:35 A
[2018-09-03] MEDS: AMOXICILLIN 500 MG CAP PO SCH (20:49)
[2018-09-03 22:00] VITALS: BP 130/79
[2018-09-03] MEDS: ACETAMINOPHEN TAB 650MG DOSE (2X325MG) PO PRN (22:33)
[2018-09-04 06:00] VITALS: BP 128/69
[2018-09-04] MEDS: LEVOTHYROXINE 150MCG TABLET (0.15MG) PO SCH (06:13)
[2018-09-04] MEDS: LEVOTHYROXINE 25MCG TABLET (0.025MG) PO SCH (06:13)
[2018-09-04 06:41] LABS: HEMOGLOBIN 10.2 g/dl (13.5-17.5); MEAN CORPUSCULAR HEMOGLOBIN 32.6 pg (27.0-33.0); MEAN CORPUSCULAR HGB CONC 32.9 g/dl (32.0-36.5); PLATELET COUNT, AUTOMATED 108 10^3/uL (150-450); RED BLOOD COUNT 3.13 10^6/uL (4.30-6.10); WHITE BLOOD COUNT 6.1 10^3/uL (4.0-10.0)
[2018-09-04 07:03] LABS: CALCIUM LEVEL 9.2 MG/DL (8.8-10.2); CREATININE FOR GFR 3.72 MG/DL (0.70-1.30); GLOMERULAR FILTRATION RATE 16.8 (>35); POTASSIUM SERUM 3.6 MEQ/L (3.5-5.1)
[2018-09-04] MEDS: ASPIRIN 81 MG ENTERIC TAB PO SCH (07:35)
[2018-09-04] MEDS: ALLOPURINOL 300 MG TAB PO SCH (07:35)
[2018-09-04] MEDS: VITAMIN D 1,000 INTERNATIONAL UNITS TABLET PO SCH (07:35)
[2018-09-04] MEDS: METOPROLOL SUCC (TopROL XL) 50MG **XL** TAB PO SCH (07:36)
[2018-09-04] MEDS: FERROUS SULFATE 325MG TAB PO SCH (07:37)
[2018-09-04] MEDS: CYANOCOBALAMIN 500 MCG TAB PO SCH (07:37)
[2018-09-04] MEDS: SIMVASTATIN 20 MG TAB PO SCH (07:37)
[2018-09-04] MEDS ORDERED: LevoFLOXacin 250 MG TABLET PO SCH (09:00)
[2018-09-04 10:58] LABS: ANTI-GLOMERULAR BASEMENT MEMB 4 units (0-20)
[2018-09-04 14:00] VITALS: BP 137/78
--- NOTE | 2018-09-04 15:53 | IPN ---
DATE: 09/03/2018 SUBJECTIVE: Patient is seen and examined today at the bedside. Denies any acute overnight events or issues. He had has first hemodialysis treatment yesterday without any significant fluid removal. He tolerated the treatment without any issue. Has been working with physical therapy and denies any dyspnea with exertion or shortness of breath with rest. His home diuretics remain on hold. Temperature 97.9, pulse 78, respiratory rate 19, blood pressure 108/56, saturating 96% on room air. Intake yesterday was 1100. Urine output yesterday was 1400. Weight in the bed scale today is 134.6 kg. GENERAL: Patient is seen lying in bed, awake, alert, oriented, comfortable, pleasant elderly male. No acute distress. Extraocular muscles are intact. Tongue is moist. Neck is supple. Jugular veins are not elevated. There is a tunneled hemodialysis catheter present in the right internal jugular (IJ). CARDIAC: Irregularly irregular. There is trace edema in the lower extremities. LUNGS: Clear to auscultation bilaterally. No rale or crackle. ABDOMEN: Soft and nontender. There are positive bowel sounds. GENITOURINARY: Indwelling Haskins catheter draining clear, yellow urine. NEUROLOGIC: He is oriented times three, interactive and cooperative with physical exam. SKIN: Normal turgor and temperature. LABORATORY DATA: White count 6.3, hemoglobin 10.6, platelets 113. Sodium 137, potassium 3.9, bicarbonate 29. INPATIENT MEDICATIONS: Reviewed by myself. Noted he was started on aspirin 81 mg by mouth daily. Remainder of medications is unchanged from prior. PROBLEMS: 1. Acute kidney injury (MIRIAM) superimposed on chronic kidney disease (CKD), stage IV in t his patient with complaint of 1-day history of gross hematuria, status post continuous bladder irrigation with CT evidence of distention of left ureter but without venkat hydronephrosis. Patient underwent his first hemodialysis treatment yesterday without any significant fluid removal. We will monitor him for any signs of renal recovery. Until then, he will continue to require hemodialysis. His next treatment is likely to be on Sunday. Nuclear renal scan is also in process for evaluation of flow, function, and obstructive uropathy. Serologies have also been sent in view of hematuria and renal failure, although acute glomerular nephritis is less likely. Results are pending. If okay by urology, I suggest that his Haskins catheter can likely be removed in the coming day or two, and he can be for a voiding trial. He has not had any gross hematuria for at least the past 2 days. 2. History of systolic congestive heart failure. Volume status is acceptable at present. He has been off of intravenous (IV) fluids. His home diuretics remain on hold. 3. Thrombocytopenia. Appears to be a prior issue as well when looking back at his old blood work. His CT scan was demonstrated a cirrhotic liver with splenomegaly and perisplenic and splenorenal varices, and his thrombocytopenia may be related to the same. I note primary team has resumed him on low-dose aspirin.
--- NOTE | 2018-09-04 16:31 | IPNPDOC ---
Date Seen The patient was seen on 09/04/18. Progress Note Subjective: Pt examined at bedside. No acute complaints or reported events overnight. Continues to have clear output in Haskins and is tolerating restart of ASA yesterday well. Is scheduled to undergo HD session #2 today. PHYSICAL EXAMINATION: GENERAL: NAD, resting comfortably HEENT: NC/AT, EOMI, anicteric sclera, supple CARDIAC: irregularly irregular, chronic AFib LUNGS: CTA B/L. Permacath present rt chest wall EXTREMITIES: 2+ radial pulses bilaterally. Trace edema b/l lower extremities ABDOMEN: soft, NT, +BS A/P: 78 yo male with extensive medical history for gross hematuria. #MIRIAM/CKD - follow as per nephrology. Second dialysis session today. Renal fxn continues to improve. - Likely related to hematuria and nephrolithiasis worsening his CKD. Renal immunologic markers pending. - PFS consulted to confirm outpatient dialysis seat. Continue monitoring renal fxn and I/Os. #gross hematuria - improved after CBI-d/c'ed 09/02. Urology want o/p f/u and have signed off - broad differential: radiation cystitis versus UTI versus nephrolithiasis versus renal cyst for etiology given medical history - H/H remain stable, urine cytology neg for malignancy and PSA WNL @ 0.059 = less likely bladder/prostate malignancy - no hematuria after restart of ASA yesterday. H&H continue to be stable. H[place]ins with clear o/p. Will attempt voiding trial in next few days #UTI - UCx + E.Faecalis and Strep Sanguinis - Continue po Amoxicillin. Started abx 09/01. #liver cirrhosis -inpatient workup pending -hep panel neg #Afib - pradaxa previously d/c 2/2 anemia - continue ASA #NIDDM2 #HLD #hypothyroidism #HTN #History of prostate cancer s/p radiation 10-15 years ago. #Chronic venous insufficiency and lymphedema, follows with Dr. Phipps. #Gout. #Obesity. DVT ppx: mechanical given acute bleed DISPO: Cleared PT. Pending clinical improvement & PFS seeking o/p dialysis chair. VS, I&O, 24H, Fishbone Vital Signs/I&O Vital Signs Date Time Temp Pulse Resp B/P (MAP) Pulse Ox O2 Delivery O2 Flow Rate FiO2 09/04/18 14:00 98.1 78 18 137/78 (97) 97 08/31/18 12:54 Room Air I&O- Last 24 Hours up to 6 AM 09/04/18 05:59 Intake Total 1640 ml Output Total 1100 ml Balance 540 ml Laboratory Data 24H LABS Laboratory Tests 2 09/03/18 16:57: Bedside Glucose (Misc Panel) 133H 09/04/18 06:22: Nucleated Red Blood Cells % (auto) 0.0, Anion Gap 9, Glomerular Filtration Rate 16.8L, Blood Urea Nitrogen 79H, Creatinine 3.72H, Sodium Level 136, Potassium Level 3.6, Chloride Level 101, Carbon Dioxide Level 26, Calcium Level 9.2 CBC/BMP Laboratory Tests 09/04/18 06:22 Red Blood Count 3.13 L, Mean Corpuscular Volume 99.0 H, Mean Corpuscular Hemoglobin 32.6, Mean Corpuscular Hemoglobin Concent 32.9, Red Cell Distribution Width 14.6 H, Calcium Level 9.2 Microbiology Microbiology 08/31/18 Blood Culture - Preliminary, Resulted No Growth after 72 hours. All specime... 08/31/18 Blood Culture - Preliminary, Resulted No Growth after 72 hours. All specime... 08/31/18 Stool Occult Blood (SHER) - Final, Complete 08/31/18 Urine Culture - Final, Complete Enterococcus Faecalis Streptococcus Sanguinis GME ATTESTATION GME ATTESTATION My faculty preceptor for this patient encounter was physically present during the encounter and was fully available. All aspects of the patient interview, examination, medical decision making process, and medical care plan development were reviewed and approved by the faculty preceptor. The faculty preceptor is aware and concurs with the plan as stated in the body of this note and will attest to such by his/her cosignature. CLARK COMER DO Sep 04, 2018 16:31
[2018-09-04 17:38] LABS: PERCENT SATURATION 11.5 % (19.7-50.0)
[2018-09-04] MEDS: AMOXICILLIN 500 MG CAP PO SCH (21:09)
[2018-09-04 22:00] VITALS: BP 125/76
[2018-09-05 00:09] LABS: HEPATITIS B CORE ANTIBODY IGG Negative (Negative)
[2018-09-05 06:00] VITALS: BP 121/62
[2018-09-05] MEDS: LEVOTHYROXINE 150MCG TABLET (0.15MG) PO SCH (06:07)
[2018-09-05] MEDS: LEVOTHYROXINE 25MCG TABLET (0.025MG) PO SCH (06:07)
[2018-09-05 06:36] LABS: HEMATOCRIT 28.9 % (42.0-52.0); HEMOGLOBIN 9.7 g/dl (13.5-17.5); MEAN CORPUSCULAR HEMOGLOBIN 32.7 pg (27.0-33.0); MEAN CORPUSCULAR HGB CONC 33.6 g/dl (32.0-36.5); MEAN CORPUSCULAR VOLUME 97.3 fl (80.0-96.0); PLATELET COUNT, AUTOMATED 105 10^3/uL (150-450); RED BLOOD COUNT 2.97 10^6/uL (4.30-6.10); WHITE BLOOD COUNT 6.2 10^3/uL (4.0-10.0)
[2018-09-05 06:56] LABS: CALCIUM LEVEL 8.7 MG/DL (8.8-10.2); CREATININE FOR GFR 2.92 MG/DL (0.70-1.30); GLOMERULAR FILTRATION RATE 22.2 (>35); POTASSIUM SERUM 3.6 MEQ/L (3.5-5.1)
[2018-09-05] MEDS: CYANOCOBALAMIN 500 MCG TAB PO SCH (08:52)
[2018-09-05] MEDS: VITAMIN D 1,000 INTERNATIONAL UNITS TABLET PO SCH (08:52)
[2018-09-05] MEDS: ALLOPURINOL 300 MG TAB PO SCH (08:52)
[2018-09-05] MEDS: FERROUS SULFATE 325MG TAB PO SCH (08:53)
[2018-09-05] MEDS: METOPROLOL SUCC (TopROL XL) 50MG **XL** TAB PO SCH (08:53)
[2018-09-05] MEDS: ASPIRIN 81 MG ENTERIC TAB PO SCH (08:53)
[2018-09-05] MEDS: SIMVASTATIN 20 MG TAB PO SCH (08:53)
[2018-09-05 14:00] VITALS: BP_SYST 133; BP_SYST 169; BP_DIAS 63; BP_DIAS 72
--- NOTE | 2018-09-05 19:15 | IPNPDOC ---
Date Seen The patient was seen on 09/05/18. Progress Note Subjective: Pt examined at bedside. No acute complaints or reported events overnight. Clear Haskins o/p, renal fxn recovering well and did NOT require dialysis yesterday. Having 1800cc o/p yesterday. No pelvic of abd pain. Continues on po abx for UTI. PHYSICAL EXAMINATION: GENERAL: NAD, resting comfortably HEENT: NC/AT, EOMI, anicteric sclera, supple CARDIAC: irregularly irregular, chronic AFib, 2/6 murmur present on admission LUNGS: CTA B/L. Permacath present rt chest wall EXTREMITIES: 2+ radial pulses bilaterally. Trace edema b/l lower extremities ABDOMEN: soft, NT, +BS A/P: 78 yo male with extensive medical history for gross hematuria. #MIRIAM/CKD - follow as per nephrology. Renal fxn recovering well without requiring second dialysis session yesterday - Likely related to hematuria and nephrolithiasis worsening his CKD. Renal immunologic markers negative. - Per discussions with Neprho, pt may not require long-term HD if his renal fxn continues to improve to baseline CR~2.5. Continue monitoring #gross hematuria - improved after CBI-d/c'ed 09/02. Urology want o/p f/u and have signed off - broad differential: radiation cystitis versus UTI versus nephrolithiasis versus renal cyst for etiology given medical history - H/H remain stable, urine cytology neg for malignancy and PSA WNL @ 0.059 = less likely bladder/prostate malignancy - no hematuria after restart of ASA. H&H continue to be stable. H[place]ins with clear o/p. Will attempt voiding trial in next few days #UTI - UCx + E.Faecalis and Strep Sanguinis - Continue po Amoxicillin. Started abx 09/01. #liver cirrhosis -inpatient workup pending -hep panel neg #Afib - pt stopped pradaxa on his own in the past 2/2 anemia - continue ASA #iron deficiency anemia - likely related to underlying CKD - continue po iron supplement - H&H stable ~baseline #NIDDM2 #HLD #hypothyroidism #HTN #History of prostate cancer s/p radiation 10-15 years ago. #Chronic venous insufficiency and lymphedema, follows with Dr. Phipps. #Gout. #Obesity. DVT ppx: mechanical DISPO: Cleared PT. Pending clinical improvement & securing possible o/p dialysis chair. VS, I&O, 24H, Fishbone Vital Signs/I&O Vital Signs Date Time Temp Pulse Resp B/P (MAP) Pulse Ox O2 Delivery O2 Flow Rate FiO2 09/05/18 14:00 98.1 64 17 133/63 (86) 93 08/31/18 12:54 Room Air I&O- Last 24 Hours up to 6 AM 09/05/18 06:00 Intake Total 1200 ml Output Total 1775 ml Balance -575 ml Laboratory Data 24H LABS Laboratory Tests 2 09/05/18 06:08: Nucleated Red Blood Cells % (auto) 0.0, Anion Gap 8, Glomerular Filtration Rate 22.2L, Blood Urea Nitrogen 76H, Creatinine 2.92H, Sodium Level 136, Potassium Level 3.6, Chloride Level 102, Carbon Dioxide Level 26, Calcium Level 8.7L CBC/BMP Laboratory Tests 09/05/18 06:08 Red Blood Count 2.97 L, Mean Corpuscular Volume 97.3 H, Mean Corpuscular Hemoglobin 32.7, Mean Corpuscular Hemoglobin Concent 33.6, Red Cell Distribution Width 14.4, Calcium Level 8.7 L Microbiology Microbiology 08/31/18 Blood Culture - Final, Complete NO GROWTH AFTER 5 DAYS 08/31/18 Blood Culture - Final, Complete NO GROWTH AFTER 5 DAYS 08/31/18 Stool Occult Blood (SHER) - Final, Complete 08/31/18 Urine Culture - Final, Complete Enterococcus Faecalis Streptococcus Sanguinis GME ATTESTATION GME ATTESTATION My faculty preceptor for this patient encounter was physically present during the encounter and was fully available. All aspects of the patient interview, examination, medical decision making process, and medical care plan development were reviewed and approved by the faculty preceptor. The faculty preceptor is aware and concurs with the plan as stated in the body of this note and will attest to such by his/her cosignature. CLARK COMER DO Sep 05, 2018 19:15
[2018-09-05] MEDS: AMOXICILLIN 500 MG CAP PO SCH (20:00)
[2018-09-05 22:00] VITALS: BP 116/84
[2018-09-05] MEDS: ACETAMINOPHEN TAB 650MG DOSE (2X325MG) PO PRN (22:49)
[2018-09-06] VITALS (9 sets, daily range): BP systolic 120–143; BP diastolic 52–86
[2018-09-06 00:07] LABS: ANCA-ATYPICAL <1:20 titer (Neg:<1:20); CYTOPLASMIC NEUTROP AB ANCA-C <1:20 titer (Neg:<1:20); PERINUCLEAR AB ANCA-P <1:20 titer (Neg:<1:20)
[2018-09-06] MEDS: LEVOTHYROXINE 25MCG TABLET (0.025MG) PO SCH (05:02)
[2018-09-06] MEDS: LEVOTHYROXINE 150MCG TABLET (0.15MG) PO SCH (05:02)
[2018-09-06 05:45] LABS: HEMATOCRIT 28.5 % (42.0-52.0); HEMOGLOBIN 9.4 g/dl (13.5-17.5); MEAN CORPUSCULAR HEMOGLOBIN 32.4 pg (27.0-33.0); MEAN CORPUSCULAR VOLUME 98.3 fl (80.0-96.0); PLATELET COUNT, AUTOMATED 109 10^3/uL (150-450); WHITE BLOOD COUNT 5.4 10^3/uL (4.0-10.0)
[2018-09-06 05:58] LABS: CALCIUM LEVEL 8.7 MG/DL (8.8-10.2); CREATININE FOR GFR 2.5 MG/DL (0.70-1.30); GLOMERULAR FILTRATION RATE 26.6 (>35); POTASSIUM SERUM 3.8 MEQ/L (3.5-5.1)
[2018-09-06] MEDS: ALLOPURINOL 300 MG TAB PO SCH (08:03)
[2018-09-06] MEDS: FERROUS SULFATE 325MG TAB PO SCH (08:03)
[2018-09-06] MEDS: CYANOCOBALAMIN 500 MCG TAB PO SCH (08:03)
[2018-09-06] MEDS: SIMVASTATIN 20 MG TAB PO SCH (08:03)
[2018-09-06] MEDS: ASPIRIN 81 MG ENTERIC TAB PO SCH (08:03)
[2018-09-06] MEDS: METOPROLOL SUCC (TopROL XL) 50MG **XL** TAB PO SCH (08:03)
[2018-09-06] MEDS: VITAMIN D 1,000 INTERNATIONAL UNITS TABLET PO SCH (08:03)
[2018-09-06] MEDS: TORSEMIDE 20 MG TAB PO SCH (09:00)
[2018-09-06] MEDS ORDERED: IRON SUCROSE 100MG 5ML VIAL (J1756 PER 1MG) IV ONE (09:00)
[2018-09-06] MEDS ORDERED: IRON SUCROSE 25 MG in NS 50 ML IV ONE (11:00)
[2018-09-06] MEDS ORDERED: IRON SUCROSE 275 MG in NS 250 ML IV ONE ×2 (11:00→12:00)
--- NOTE | 2018-09-06 13:28 | IPNPDOC ---
Date Seen The patient was seen on 09/06/18. Progress Note Subjective: Pt examined at bedside. Spoke with pt regarding fingdings suggesting cirrhosis-he denies hx of liver ds, but states " I had an ultrasound done for a spot on my liver, but didn't have any liver problem." Renal fxn improved to baseline today. PHYSICAL EXAMINATION: GENERAL: NAD, resting comfortably HEENT: NC/AT, EOMI, anicteric sclera, supple CARDIAC: irregularly irregular, chronic AFib LUNGS: CTA B/L. Permacath present rt chest wall EXTREMITIES: 2+ radial pulses bilaterally. Trace edema b/l lower extremities ABDOMEN: soft, NT, +BS A/P: 78 yo male with extensive medical history for gross hematuria. #MIRIAM/CKD - Renal fxn back to baseline today, Cr ~2.5. Is s/p 1 HD session. Per nephro, will remove Permacath and does NOT need usp HD - Likely related to hematuria and nephrolithiasis worsening his CKD. Renal immunologic markers negative. #gross hematuria - resolved s/p CBI-d/c'ed 09/02. O/P f/u with Urology - radiation cystitis versus UTI versus nephrolithiasis versus renal cyst - H/H remain stable, urine cytology neg for malignancy and PSA WNL @ 0.059 = less likely bladder/prostate malignancy - no hematuria after restart of ASA. H&H continue to be stable. [place]ins with clear o/p. Will d/c Haskins today #UTI - UCx + E.Faecalis and Strep Sanguinis - Continue po Amoxicillin. Started abx 09/01. #liver cirrhosis -inpatient workup pending. Pt denies any previous liver ds. Educated that he will need o/p GI f/u -hep panel neg #Afib - pt stopped pradaxa on his own in the past 2/2 anemia - continue ASA #iron deficiency anemia - likely related to underlying CKD - continue po iron supplement - H&H stable ~baseline #NIDDM2 #HLD #hypothyroidism #HTN #History of prostate cancer s/p radiation 10-15 years ago. #Chronic venous insufficiency and lymphedema, follows with Dr. Phipps. #Gout. #Obesity. DVT ppx: mechanical DISPO: Cleared PT. Monitor urine o/p after removing Haskins. Likely d/c tomorrow. VS, I&O, 24H, Fishbone Vital Signs/I&O Vital Signs Date Time Temp Pulse Resp B/P (MAP) Pulse Ox O2 Delivery O2 Flow Rate FiO2 09/06/18 08:03 71 121/74 09/06/18 06:00 97.7 16 95 08/31/18 12:54 Room Air I&O- Last 24 Hours up to 6 AM 09/06/18 06:00 Intake Total 1920 ml Output Total 1925 ml Balance -5 ml Laboratory Data 24H LABS Laboratory Tests 2 09/06/18 05:00: Nucleated Red Blood Cells % (auto) 0.0, Anion Gap 7L, Glomerular Filtration Rate 26.6L, Blood Urea Nitrogen 71H, Creatinine 2.50H, Sodium Level 137, Potassium Level 3.8, Chloride Level 103, Carbon Dioxide Level 27, Calcium Level 8.7L CBC/BMP Laboratory Tests 09/06/18 05:00 Red Blood Count 2.90 L, Mean Corpuscular Volume 98.3 H, Mean Corpuscular Hemoglobin 32.4, Mean Corpuscular Hemoglobin Concent 33.0, Red Cell Distribution Width 14.4, Calcium Level 8.7 L Microbiology Microbiology 08/31/18 Blood Culture - Final, Complete NO GROWTH AFTER 5 DAYS 08/31/18 Blood Culture - Final, Complete NO GROWTH AFTER 5 DAYS 08/31/18 Stool Occult Blood (SHER) - Final, Complete 08/31/18 Urine Culture - Final, Complete Enterococcus Faecalis Streptococcus Sanguinis GME ATTESTATION GME ATTESTATION My faculty preceptor for this patient encounter was physically present during the encounter and was fully available. All aspects of the patient interview, examination, medical decision making process, and medical care plan development were reviewed and approved by the faculty preceptor. The faculty preceptor is aware and concurs with the plan as stated in the body of this note and will atte st to such by his/her cosignature. CLARK COMER DO Sep 06, 2018 13:28
--- NOTE | 2018-09-06 15:29 | IPN ---
DATE: 09/04/2018 SUBJECTIVE: Patient seen and examined this morning at the bedside. Denies any acute overnight events or issues. Remains with a Haskins catheter in place. No recurrent gross hematuria. Reports he has also been ambulating around the halls. Denies any shortness of breath or dyspnea on exertion. VITAL SIGNS: Temperature 98.1, pulse 65, respiratory rate 17, blood pressure 128/69, saturating 97% on room air. Intake yesterday was 1340. Urine output yesterday was 1100. Net positive 240. Weight in the bed scale today is 134.7 kg. GENERAL: Patient is seen sitting upright in bed, legs dangling. Awake, alert, oriented, comfortable. No acute distress. Extraocular muscles are intact. Anicteric sclerae. NECK: Supple. Jugular veins are not elevated. CARDIAC: Irregularly irregular, S1, S2. LUNGS: Clear to auscultation bilaterally. There is a tunneled hemodialysis catheter present in the right chest wall. ABDOMEN: Soft, obese, nontender. Positive bowel sounds. GENITOURINARY: Shows indwelling Haskins catheter draining clear, yellow urine. EXTREMITIES: Show trace edema bilaterally below the knee, and he is wearing compression stockings. NEUROLOGIC: He is oriented, interactive, and appropriate. SKIN: Normal turgor and temperature. LABORATORY DATA: Sodium 136, potassium 3.6, BUN 79, creatinine 3.7. Transferrin saturation (TSAT) 11.5%. Hemoglobin 10.2. IMAGING: Nuclear renal scan noted with pelviectasis, right kidney, and bilateral caliectasis in the upper poles and mild persistent dilatation of the distal left ureter. INPATIENT MEDICATIONS: Reviewed by myself. Noted patient was started on amoxicillin per the primary team. Remainder of medications is unchanged from prior. PROBLEMS: 1. Acute kidney injury (MIRIAM) on chronic kidney disease (CKD), stage IV. Status post one hemodialysis treatment on September 02, now with signs of renal recovery with downtrending interdialytic creatinine. Will hold off on dialyzing him today and repeat renal panel in the morning and keep an eye on the urine output. His nuclear renal scan is noted. There was persistent mild dilatation of the left ureter. He is going to followup further with urology as outpatient. There has been no recurrent gross hematuria. Haskins catheter can likely be discontinued if okay by urology, and he can be for a voiding trial. His serologies are still pending at present. 2. History of systolic congestive heart failure. Volume status is acceptable at present. His home diuretics remain on hold. We will keep a close eye on the volume and respiratory status. 3. Status post episode of gross hematuria, improved after continuous bladder irrigation with further followup with the urology planned as outpatient. Has some persistent dilatation of the left ureter but without any venkat hydronephrosis. No recurrent gross hematuria. Has been resumed on low-dose aspirin per the primary team. Suggest voiding trial in the next day or so if his renal function continues to improve.
--- NOTE | 2018-09-06 16:49 | IPN ---
DATE: 09/05/2018 SUBJECTIVE: Jeffrey is seen and examined this morning at the bedside. He reports he had an uneventful night. No recurrent episode of gross hematuria to the Haskins catheter. Has been up and about walking around. Denies any dyspnea on exertion. His labs show ongoing renal recovery, and I discussed with him that we will remove his Perm-A-Cath tomorrow. VITAL SIGNS: Temperature 98.6, pulse 74, respiratory rate 17, blood pressure 121/62, saturating 97% on room air. Intake yesterday was 1200. Urine output yesterday was 1875. Net negative 675. Weight in the bed scale today is 136 kg. GENERAL: Patient seen sitting at the edge of the bed. Elderly male. Morbidly obese. Comfortable, smiling. No acute distress. Extraocular muscles are intact. Tongue is moist. NECK: Supple. Jugular veins are not elevated. There is a tunneled hemodialysis catheter present in the right chest wall. CARDIAC: Irregularly irregular, S1, S2. There is trace edema in the lower extremities. He is wearing compression stockings. LUNGS: Clear to auscultation bilaterally. No rale or crackles. ABDOMEN: Soft, obese, and nontender. GENITOURINARY: Shows Haskins catheter draining clear yellow urine. NEUROLOGIC: He is oriented times three, interactive, and conversational. SKIN: Normal turgor and temperature. LABORATORY DATA: Sodium 136, potassium 3.6, bicarbonate 26, BUN 76, creatinine 2.9. Transferrin saturation 11%. Hemoglobin 9.7. Urine culture August 31 grew Enterococcus faecalis and Streptococcus sanguinis. INPATIENT MEDICATIONS: Reviewed by myself and no change from prior. PROBLEMS: 1. Acute kidney injury (MIRIAM) on chronic kidney disease (CKD), stage IV in this patient who is status post one hemodialysis session on September 02, now with ongoing renal recovery and no further hemodialysis needs at present. His baseline creatinine is 2.5. Creatinine today is down to 2.9. His electrolytes and volume status are acceptable. His urine output is adequate. I will plan to remove his Perm-A-Cath tomorrow as long as labs show stability or further improvement in the renal function. He will followup with urology as well for the distention of the left ureter and episode of gross hematuria. 2. Gross hematuria and left ureter distention, status post continuous bladder irrigation. No venkat hydronephrosis seen on imaging. Nuclear scan noted. Serologic workup showed negative antineutrophil cytoplasmic antibodies (ANCA) and normal complements. Remainder of workup is in process. He will need to followup with urology as an outpatient. If okay by urology, I suggest to remove his Haskins catheter, and he can be for a voiding trial. Acute glomerular nephritis as a cause of gross hematuria is less likely given that the patient is having ongoing renal recovery. 3. Urinary tract infection (UTI). Urine culture from August 31 is noted. Once the Haskins catheter has been removed, a urine culture should be repeated to assess for eradication of the infection. He is on antimicrobials as per the primary team. 4. Iron deficiency anemia. I will plan to give him a Venofer infusion prior to discharge. DISPOSITION: Ongoing renal recovery. Baseline creatinine around 2.5, current creatinine 2.9. Plan for Perm-A-Cath removal on Sunday as long as renal function stays stable or improved. Outpatient hemodialysis arrangement is not necessary.
[2018-09-06] MEDS: AMOXICILLIN 500 MG CAP PO SCH (20:20)
[2018-09-06] MEDS: ACETAMINOPHEN TAB 650MG DOSE (2X325MG) PO PRN (20:28)
[2018-09-07 00:07] LABS: ALPHA 1 ANTITRYPSIN 150 mg/dL (90-200); ANTI-MITOCHONDRIAL ANTIBODY <20.0 Units (0.0-20.0); ANTI-SMOOTH MUSCLE ANTIBODY 12 Units (0-19); ANTINUCLEAR ANTIBODIES DIRECT Negative (Negative); CERULOPLASMIN 27.2 mg/dL (16.0-31.0); TRANSFERRIN 224 mg/dL (200-370)
[2018-09-07] MEDS: LEVOTHYROXINE 25MCG TABLET (0.025MG) PO SCH (05:46)
[2018-09-07] MEDS: LEVOTHYROXINE 150MCG TABLET (0.15MG) PO SCH (05:46)
[2018-09-07 06:00] VITALS: BP 133/68
[2018-09-07 06:24] LABS: HEMATOCRIT 30.7 % (42.0-52.0); MEAN CORPUSCULAR HEMOGLOBIN 32.5 pg (27.0-33.0); MEAN CORPUSCULAR HGB CONC 32.6 g/dl (32.0-36.5); MEAN CORPUSCULAR VOLUME 99.7 fl (80.0-96.0); PLATELET COUNT, AUTOMATED 103 10^3/uL (150-450); RED BLOOD COUNT 3.08 10^6/uL (4.30-6.10); WHITE BLOOD COUNT 4.2 10^3/uL (4.0-10.0)
[2018-09-07 06:48] LABS: CALCIUM LEVEL 8.8 MG/DL (8.8-10.2); CREATININE FOR GFR 2.27 MG/DL (0.70-1.30); GLOMERULAR FILTRATION RATE 29.7 (>35)
[2018-09-07] MEDS ORDERED: AMOX500C PO (07:51)
[2018-09-07] MEDS ORDERED: TORS20TA2 PO (07:51)
[2018-09-07] MEDS: SIMVASTATIN 20 MG TAB PO SCH (09:01)
[2018-09-07] MEDS: FERROUS SULFATE 325MG TAB PO SCH (09:01)
[2018-09-07] MEDS: CYANOCOBALAMIN 500 MCG TAB PO SCH (09:02)
[2018-09-07] MEDS: ASPIRIN 81 MG ENTERIC TAB PO SCH (09:02)
[2018-09-07] MEDS: VITAMIN D 1,000 INTERNATIONAL UNITS TABLET PO SCH (09:02)
[2018-09-07] MEDS: ALLOPURINOL 300 MG TAB PO SCH (09:02)
[2018-09-07] MEDS: TORSEMIDE 20 MG TAB PO SCH (09:02)
[2018-09-07 09:07] VITALS: BP 128/71
[2018-09-07] MEDS: METOPROLOL SUCC (TopROL XL) 50MG **XL** TAB PO SCH (09:07)
--- NOTE | 2018-09-07 14:21 | IPN ---
DATE: 09/07/2018 Mr. Chaudhary is seen this morning on his bedside. He is sitting in the chair at the time of my visit. He is feeling well and is likely to go home today. He denies any nausea, vomiting, dyspnea or chest pain. He was admitted with acute renal failure and hematuria, which was felt to be related to UTI. He required temporary dialysis and kidney function has since improved. His diuretic has been resumed. PHYSICAL EXAMINATION: Temperature 97.5 degrees Fahrenheit, heart rate 86 per minute and respiratory rate 18 per minute. Blood pressure 128/70 mmHg and oxygen saturation 96% on room air. Intake and output records from yesterday showed total intake 1860 and output 1200. He weighed 136.7 kg. His head is atraumatic. Neck is supple and JVD is mildly elevated. A right-sided internal jugular vein hemodialysis catheter is intact without any bleeding or infection signs. His heart sounds are irregular in rhythm. Lung sounds clear to auscultation. Abdomen is obese, soft and nontender and bowel sounds are present. Extremities have no cyanosis or clubbing. Neurologically he is awake, alert and oriented times three. Today's labs show WBC count 4.2, hemoglobin 10.0 and hematocrit 30.7. Platelets 103. Sodium 136, potassium 4.0, CO2 25, BUN 58 and creatinine 2.27. Calcium level is 8.8. PROBLEMS: 1. Acute renal failure superimposed on chronic kidney disease. Kidney function has improved almost back to baseline. He required only one dialysis treatment and does not need any further dialysis. His PermaCath will be removed today. 2. Congestive heart failure. Volume status is reasonable at present and the patient will resume his home dose of diuretic after discharge. He will also follow up with Dr. Meng within the next couple of weeks. 3. Hypertension. Blood pressure is well-controlled on current medications. No changes are being made today. 4. Anemia. His anemia has improved and stable at present and it will be followed up as an outpatient. DISPOSITION: From renal standpoint, the patient will be ready for discharge later today. We are going to remove his PermaCath on the bedside.
--- NOTE | 2018-09-07 15:34 | DS.PDOC ---
Discharge Summary General Date of Admission Aug 31, 2018 at 11:48 Date of Discharge 09/07/2018 Primary Care Physician: ZULEIMA RICHEY MD Attending Physician: WILMER RONDON DO Specialist/Consultants Involve Director Nursery School: Dr. Collazo Urologist: Dr. Galvan Discharge Summary PROCEDURES PERFORMED DURING STAY: Continue bladder irrigation ADMITTING DIAGNOSES: 1. Gross hematuria 2. MIRIAM on CKD 3. Pyelonephritis DISCHARGE DIAGNOSES: 1. Gross hematuria: radiation cystitis vs UTI vs nephrolithiasis vs renal cyst 2. MIRIAM on CKD 3. UTI, + E.Faecalis and Strep Sanguinis 4. Renal cysts 5. Newly diagnosed Cirrhosis Prostate cancer s/p radiation 15 years ago Atrial fibrillation, not on anticoagulation due to patient preference Hypertension CTD stage IV IDDM2 Hyperlipidemia Hypothyroidism Chronic venous insufficiency Gout Obesity History of nephrolithiasis COMPLICATIONS/CHIEF COMPLAINT: Hematuria. 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 He states that there were no blood clots. He states "I had holes in my bladder from the radiation years ago" and thus he gets frequent spotting. He states he does have a history of kidney stones however he has not had any hematuria from kidney sto corrina in the past. At the time of admission, he denies any other complaints and feels his normal self. No recent fevers, chills, nausea, vomiting, no abnormal discharges, no pelvic pain. He denies any recent travel, sick contacts, changes in medications. HOSPITAL COURSE: Patient was admitted and started on IV antibiotics and urology was consulted. There was concern for ureteral lesion on initial imaging, with recommendation from urology for CT urogram. However, due to his kidney disease, this was not obtainable. There are also nonobstructing kidney stones and mild hydronephrosis on the left noted. Per urology, he was started on continuous bladder irrigation in the ER, and hematuria already beginning to improve in the ER and became nonbloody, cloudy during admission. Given his history of prostate cancer, PSA was checked, which was negligible, and urine cytology was negative for malignancy. There were plans for possible cystogram and retro-grade pyelogram the next morning, however patient's hematuria had already resolved, and urology signed off and recommended outpatient follow-up. He was restarted on aspirin and no longer had hematuria. Nephrology was consulted, given patient's c reatinine of 3.08 on admission, and his baseline creatinine being around 2.8. Nephro held his home diuretics, and gently hydrated patient. His creatinine did not improve, and thus he required placement of a permacath and 1 hemodialysis session inpatient, after which his renal function gradually improved back to his baseline. Renal immunologic markers were sent, which were negative. Permacath was removed, and per nephro, he does not need any further dialysis sessions. Diuretics were resumed and adjusted. He was transitioned from IV antibiotics to po amoxicillin per his urine culture sensitivities to Enterococcus faecalis and strep sanguinis. Of note, patient denied any history of any liver disease, but was found to have a cirrhotic appearing liver with splenomegaly and perisplenic and splenorenal varices on initial CT. Labs ordered to further work this up were all essentially negative. This was relayed to patient, with instructions to follow-up closely with his PCP for further testing and management. He was counseled on alcohol avoidance. He was cleared by PT and discharged home, with instructions to follow-up closely with his PCP, nephrology and urology. DISCHARGE MEDICATIONS: Please see below. ALLERGIES: Please see below. PHYSICAL EXAMINATION ON DISCHARGE: VITAL SIGNS: Please see below. GENERAL: NAD, resting comfortably HEENT: NC/AT, EOMI, anicteric sclera, supple CARDIAC: irregularly irregular, chronic AFib LUNGS: CTA B/L. Permacath removed with dressing in place on rt chest wall EXTREMITIES: 2+ radial pulses bilaterally. Trace edema b/l lower extremities ABDOMEN: soft, NT, +BS LABORATORY DATA: Please see below. IMAGING: * 08/31/2018 CT abdomen and pelvis: 1. Nonspecific significant thickening of the bladder wall which could be secondary to cystitis however other underlying pathologies cannot be excluded. 2. Short segment of significant distention of the distal ureter. Underlying ureteral lesion cannot be excluded. Correlation with CT urogram is suggested. 3. Status post right hemicolectomy with grossly intact anastomosis in the right upper abdominal quadrant. No bowel obstruction seen. 4. Cirrhotic liver with splenomegaly and perisplenic and splenorenal varices. 5. Nonobstructing nephrolithiasis. 6. 1.3 cm dense right upper renal pole lesion could represent cyst with proteinaceous material or blood products. This was not seen on the prior exam of 2012. Further characterization with MRI is suggested. * 09/01/2018 bladder ultrasound: There is a Haskins catheter in place. Haskins balloon is seen within the bladder. The Haskins catheter was clamped 4 hours prior to the procedure. Bladder contains a small amount of fluid and measures approximately 5.9 x 2.6 x 2.2 cm for a total volume of about 18 mL. Prostate measures 5.9 x 3.0 x 4.1 cm for a total volume of about 38 mL. Due to suboptimal distention, the bladder is not well evaluated for underlying mass, wall thickening, or calculi. * 09/01/2018 renal ultrasound: Real-time sonographic evaluation of kidneys performed. Kidneys are normal in size, right kidney measuring 13.8 x 4.5 x 5.4 cm and left kidney 13.1 x 5.4 x 5.5 cm. There is no nephrolithiasis or renal mass bilaterally. There appears to be a calculus in the lower pole of the right kidney 8 mm in diameter. The small hyperdense nodule in the upper pole of the right kidney is not visualized by ultrasound. * 09/02/2018 renal nuclear medicine scan: Mild pelviectasis right kidney and mild bilateral caliectasis in the upper poles bilaterally. These findings resolved with the patient sitting upright. There is mild persistent dila tation of the distal left ureter. There is mildly compromised renal function bilaterally. PROGNOSIS: fair ACTIVITY: As tolerated. DIET: low fat, low cholesterol DISPOSITION: 01 Home, Self-Care. DISCHARGE INSTRUCTIONS: 1. Follow-up with PCP, nephrology, urology closely after discharge. 2. Discuss newly found cirrhosis with PCP and establish with GI 3. Return to ER for emergency 4. MED CHANGES: Stop torsemide. Reduce torsemide 50mg po bid to 20mg daily. Complete amoxicillin for 7 additional days. DISCHARGE CONDITION: Stable. TIME SPENT ON DISCHARGE: Greater than 30 minutes. Vital Signs/I&Os Vital Signs Date Time Temp Pulse Resp B/P (MAP) Pulse Ox O2 Delivery O2 Flow Rate FiO2 09/07/18 09:07 86 128/71 09/07/18 06:00 97.5 17 96 I&O- Last 24 Hours up to 6 AM 09/07/18 06:00 Intake Total 1740 ml Output Total 1000 ml Balance 740 ml Laboratory Data Labs 24H Laboratory Tests 2 09/07/18 05:55: Nucleated Red Blood Cells % (auto) 0.0, Anion Gap 7L, Glomerular Filtration Rate 29.7L, Blood Urea Nitrogen 58H, Creatinine 2.27H, Sodium Level 136, Potassium Level 4.0, Chloride Level 104, Carbon Dioxide Level 25, Calcium Level 8.8 CBC/BMP Laboratory Tests 09/07/18 05:55 Red Blood Count 3.08 L, Mean Corpuscular Volume 99.7 H, Mean Corpuscular Hemoglobin 32.5, Mean Corpuscular Hemoglobin Concent 32.6, Red Cell Distribution Width 14.2, Calcium Level 8.8 Microbiology Microbiology 08/31/18 Blood Culture - Final, Complete NO GROWTH AFTER 5 DAYS 08/31/18 Blood Culture - Final, Complete NO GROWTH AFTER 5 DAYS 08/31/18 Stool Occult Blood (SHER) - Final, Complete 08/31/18 Urine Culture - Final, Complete Enterococcus Faecalis Streptococcus Sanguinis Discharge Medications Scheduled (Icaps) 1 Cap Cap, 1 CAP PO DAILY, (Reported) (Calcium 600 + D 600-200 mg-Unit) 1 Tab Tab, 1 TAB PO DAILY, (Reported) Allopurinol (Zyloprim) 300 Mg Tab, 300 MG PO DAILY, (Reported) Amoxicillin (Amoxicillin) 500 Mg Cap, 500 MG PO Q24H Aspirin (Aspir-81) 81 Mg Tab, 81 MG PO DAILY, (Reported) Cyanocobalamin (Vitamin B12) 1,000 Mcg Tab, 2,500 MCG PO DAILY, (Reported) Ferrous Sulfate (Ferrous Sulfate) 325 Mg Tab, 325 MG PO DAILY, (Reported) Levothyroxine Sodium (Synthroid) 175 Mcg Tab, 175 MCG PO DAILY, (Reported) Lovastatin (Lovastatin) 20 Mg Tab, 20 MG PO DAILY, (Reported) LAST FILLED 05/16/18 Metoprolol Succinate (Metoprolol Succinate ER) 50 Mg Tab, 50 MG PO DAILY, (Reported) Torsemide (Torsemide) 20 Mg Tab, 20 MG PO DAILY Vitamin D (Vitamin D) 1,000 Unit Cap, 1,000 UNIT PO DAILY, (Reported) Allergies Coded Allergies: No Known Drug Allergy (Verified Allergy, Unknown, 03/29/17) GME ATTESTATION GME ATTESTATION My faculty preceptor for this patient encounter was physically present during the encounter and was fully available. All aspects of the patient interview, examination, medical decision making process, and medical care plan development were reviewed and approved by the faculty preceptor. The faculty preceptor is aware and concurs with the plan as stated in the body of this note and will attest to such by his/her cosignature. CLARK COMER DO Sep 07, 2018 15:34
--- NOTE | 2018-09-08 15:16 | IPN ---
DATE: 09/06/2018 SUBJECTIVE: The patient was seen and examined today. Denies any issues. Had his Haskins catheter removed recently is pending voiding trial. Denies any shortness of breath or dyspnea on exertion, has been walking around the hallways. PermCath is going to be removed and I discussed with the patient regarding his adjustment of output diuretic regimen. VITAL SIGNS: Temperature 98.1, pulse 72, respiratory rate 20, blood pressure 139/62, saturating 97% on room air. Intake yesterday was 2100. Urine output yesterday was 2 liters. Weight in the bed scale today is 136.7 kg. GENERAL: The patient is seen sitting upright in bed, elderly male, pleasant. Extraocular muscles intact. Tongue is moist. Neck is supple. Jugular veins are not elevated while he is sitting upright. CARDIAC: S1, S2 irregularly irregular. There is trace edema in the lower extremities. There is a tunneled hemodialysis catheter present in the right chest wall. LUNGS: Clear to auscultation bilateral, no crackle or rale. ABDOMEN: Soft, obese and nontender. GENITOURINARY: His Haskins catheter has been removed. NEUROLOGIC: He is oriented times three, interactive and conversational. SKIN: Normal turgor and temperature. LABORATORY: White count 5.4, hemoglobin 9.4, platelets 109. Sodium 137, potassium 3.8, bicarbonate 27, BUN 71, creatinine 2.5. INPATIENT MEDICATIONS: I have started the patient on torsemide 20 mg by mouth daily. PROBLEMS: 1. Acute kidney injury on chronic kidney disease (CKD) stage IV in this patient who is status post one hemodialysis treatment on September 02, now with renal recovery back to his prior baseline and no further hemodialysis needs. PermCath is to be removed. Electrolytes and volume status are acceptable. I am restarting him on his diuretic today. I will give him torsemide 20 mg times one and he can likely be discharged on torsemide 50 mg by mouth daily tomorrow. 2. Gross hematuria and left ureter distension, status post continued spider irrigation. No venkat hydronephrosis seen on imaging. Nuclear scan noted. Serologic work up has been negative. He had an acute kidney injury which has recovered back to baseline. He is going to followup with urology as an outpatient. His Haskins catheter has been removed and he is pending voiding trial today. 3. Urinary tract infection (UTI). He is on antimicrobials as per the primary team. 4. Iron deficiency anemia. He received Venofer infusion. His hemoglobin is acceptable. DISPOSITION: The patient's renal function has recovered to his prior baseline. His PermCath is to be removed. He is being resumed on diuretic today. I have advised to take half his normal torsemide dose at home, which will be torsemide 50 mg once daily and he should followup in the nephrology office within one week with his usual staff readiness officer, Dr. Meng
--- NOTE | 2018-09-09 18:18 | RO ---
DATE OF PROCEDURE: 09/07/2018 PREPROCEDURE DIAGNOSIS: Acute renal failure, partially resolved and no need for dialysis. POSTPROCEDURE DIAGNOSIS: Acute renal failure, partially resolved and no need for dialysis. PROCEDURE: Removal of Perma-Cath SURGEON: Dr. Frida Collazo DOCUMENT COORDINATOR: Dr. Prerna Witt ANESTHESIA: None. INDICATION: Improved kidney function and no need for dialysis. DESCRIPTION OF PROCEDURE: The patient gave informed consent for removal of Perma-Cath. Dressing was removed from the catheter site and sutures were removed with the suture remover. Pressure was held at the catheter exit site, and catheter pulled out manually with persistent pull. Catheter came out intact without any difficulty. Digital pressure was held to secure hemostasis and then pressure dressing was applied. The patient tolerated the procedure well. There were no complications.
== END 2018-09-07 11:45 | disposition home or self-care (01) | DRG 674 ==
LOC: M ED 06:25 → M ED INP 11:48 → M MSPAV 13:14
PROVIDERS: ADMIT Internal Medicine; ATTEND Internal Medicine
PROC: 0JH63XZ Insertion of Tunneled Vascular Access Device into Chest Subcutaneous Tissue and Fascia, Percutaneous Approach (ICD-10-PCS; principal; 2018-09-02)
PROC: 02HV33Z Insertion of Infusion Device into Superior Vena Cava, Percutaneous Approach (ICD-10-PCS; 2018-09-02)
PROC: 5A1D70Z Performance of Urinary Filtration, Intermittent, Less than 6 Hours Per Day (ICD-10-PCS; 2018-09-02)
PROC: 05PY33Z Removal of Infusion Device from Upper Vein, Percutaneous Approach (ICD-10-PCS; 2018-09-07)
DX: N17.9 Acute kidney failure, unspecified (principal); E87.1 Hypo-osmolality and hyponatremia; I50.22 Chronic systolic (congestive) heart failure; Z68.41 Body mass index [BMI] 40.0-44.9, adult; N39.0 Urinary tract infection, site not specified; N30.41 Irradiation cystitis with hematuria; I12.9 Hypertensive chronic kidney disease with stage 1 through stage 4 chronic kidney disease, or unspecified chronic kidney disease; I48.91 Unspecified atrial fibrillation; N18.4 Chronic kidney disease, stage 4 (severe); E11.22 Type 2 diabetes mellitus with diabetic chronic kidney disease; E78.5 Hyperlipidemia, unspecified; E03.9 Hypothyroidism, unspecified; I25.10 Atherosclerotic heart disease of native coronary artery without angina pectoris; I87.2 Venous insufficiency (chronic) (peripheral); M10.9 Gout, unspecified; E66.9 Obesity, unspecified; I89.0 Lymphedema, not elsewhere classified; D69.6 Thrombocytopenia, unspecified; B95.2 Enterococcus as the cause of diseases classified elsewhere; N28.1 Cyst of kidney, acquired; N20.0 Calculus of kidney; D63.1 Anemia in chronic kidney disease; R31.0 Gross hematuria; K74.60 Unspecified cirrhosis of liver; Z92.3 Personal history of irradiation; Z79.82 Long term (current) use of aspirin; Z85.46 Personal history of malignant neoplasm of prostate; Z87.891 Personal history of nicotine dependence; Z91.013 Allergy to seafood; Z79.899 Other long term (current) drug therapy

== ENCOUNTER → 2018-09-13 | Outpatient (REF) | payer MEDICARE ==
[~2018-09-13] MED LIST changes: +AMOX500C PO; +FERR1TAB8 PO; +IMOD2TAB16 PO; +KLOR20TA42 PO; +METO1TAB7 PO; +METO25TA PO; +TORS100T PO; +TORS20TA2 PO; +ZYLO300T6 PO
[2018-09-13 18:25] LABS: HEMOGLOBIN A1c 7.1 %
== END ==
LOC: M SFHCLERA 13:59
PROVIDERS: ATTEND Family Medicine
DX: E03.9 Hypothyroidism, unspecified (principal); N18.4 Chronic kidney disease, stage 4 (severe)

== ENCOUNTER 2018-09-27 22:42 | Inpatient (IN) | payer MEDICARE ==
[~2018-09-27] VITALS: Ht 175.3 cm; Wt 137.5 kg
[~2018-09-27 22:42] MED LIST changes: -IMOD2TAB16 PO; -KLOR20TA42 PO
[2018-09-27 23:42] LABS: BILIRUBIN, URINE MANUAL NEGATIVE (NEGATIVE); GLUCOSE, URINE (UA) MANUAL NEGATIVE (NEGATIVE); KETONE, URINE MANUAL NEGATIVE (NEGATIVE); UROBILINOGEN, URINE MANUAL NORMAL (NORMAL)
[2018-09-27 23:43] LABS: RBC, URINE TNTC /hpf (0-3)
[2018-09-27 23:44] LABS: AMORPHOUS SEDIMENT, URINE SMALL AMOUNT (NEGATIVE); HYALINE CAST, URINE NONE SEEN /lpf (0-1); MUCUS, URINE SMALL AMOUNT (NEGATIVE); SQUAMOUS EPITHELIAL CELL URINE SMALL AMOUNT /hpf (SMALL AMT)
[2018-09-27 23:46] LABS: BACTERIA, URINE SMALL AMOUNT
[2018-09-28 00:03] LABS: INR 1.11; PROTHROMBIN TIME 14.5 SECONDS (12.1-14.4)
[2018-09-28 00:04] LABS: CALCIUM LEVEL 8.5 MG/DL (8.8-10.2); CREATININE FOR GFR 3.15 MG/DL (0.70-1.30); GLOMERULAR FILTRATION RATE 20.4 (>35); PARTIAL THROMBOPLASTIN TIME 29.6 SECONDS (25.4-37.6); POTASSIUM SERUM 4.5 MEQ/L (3.5-5.1)
[2018-09-28 00:07] LABS: BASO % 0.7 % (0.0-1.0); EOS # 0.4 10^3/uL (0.0-0.50); EOS % 6.2 % (0.0-3.0); HEMATOCRIT 34.7 % (42.0-52.0); HEMOGLOBIN 11.5 g/dl (13.5-17.5); LYMPH # 0.8 10^3/uL (1.5-4.5); LYMPH % 13.4 % (24.0-44.0); MEAN CORPUSCULAR HEMOGLOBIN 32.2 pg (27.0-33.0); MEAN CORPUSCULAR HGB CONC 33.1 g/dl (32.0-36.5); MEAN CORPUSCULAR VOLUME 97.2 fl (80.0-96.0); MONO # 0.7 10^3/uL (0.0-0.8); MONO % 11.8 % (0.0-5.0); NEUTROPHILS # 3.9 10^3/uL (1.8-7.7); NEUTROPHILS % 66.9 % (36.0-66.0); PLATELET COUNT, AUTOMATED 135 10^3/uL (150-450); RED BLOOD COUNT 3.57 10^6/uL (4.30-6.10); WHITE BLOOD COUNT 5.8 10^3/uL (4.0-10.0)
[2018-09-28] MEDS ORDERED: NS 1,000 ML IV ONE (00:15)
[2018-09-28] MEDS ORDERED: KLOR20TA42 PO (01:33)
[2018-09-28] MEDS ORDERED: TORS20TA2 PO (01:33)
[2018-09-28] MEDS ORDERED: IMOD2TAB16 PO (01:33)
[2018-09-28] MEDS ORDERED: METO25TA PO (01:33)
--- NOTE | 2018-09-28 01:44 | REPVR ---
EXAM: CT Abdomen and Pelvis Without Contrast EXAM DATE/TIME: 09/28/2018 12:22 AM CLINICAL HISTORY: 78 years old, male; Signs and symptoms; Other: Hematuria; Additional info: Hematuria, HX ureteral calc and prostate CA TECHNIQUE: Axial computed tomography images of the abdomen and pelvis without contrast. All CT scans at this facility use at least one of these dose optimization techniques: automated exposure control; mA and/or kV adjustment per patient size (includes targeted exams where dose is matched to clinical indication); or iterative reconstruction. Coronal and sagittal reformatted images were created and reviewed. COMPARISON: CT ABD PELVIS W/O CONTRAST 08/31/2018 7:21 AM FINDINGS: Lower thorax: No acute findings. ABDOMEN: Liver: Slightly nodular surface of the liver. Gallbladder and bile ducts: Normal. No calcified stones. No ductal dilation. Pancreas: Normal. No ductal dilation. Spleen: The spleen measures 13.2 cm. There appear to be portal venous collaterals posterior to the spleen. Adrenals: Normal. No mass. Kidneys and ureters: Nonobstructing bilateral renal calculi measuring up to 7 mm in the lower pole of the right kidney. Probable hyperdense right renal cyst in the upper pole which is not well-defined. Stomach and bowel: Ascending colectomy with ileocolic anastomosis in the right upper quadrant at the proximal transverse colon. Appendix: No evidence of appendicitis. PELVIS: Bladder: There is bladder wall thickening, however, the bladder is nondistended and is nonspecific. Reproductive: Metallic seeds in the posterior prostate. ABDOMEN and PELVIS: Intraperitoneal space: Normal. No free air. No significant fluid collection. Bones/joints: Degenerative changes of the lumbar spine. Soft tissues: Unremarkable. Vasculature: There is moderate atherosclerotic calcification of the abdominal aorta with extension into the iliac arteries. Lymph nodes: Normal. No enlarged lymph nodes. Other findings: Minimal recanalization of ligamentum teres. IMPRESSION: 1. Suggestion of hepatic cirrhosis with borderline splenomegaly and some portal venous collateralization. 2. Nonobstructing bilateral renal calculi. 3. Status post ascending colectomy. 4. Otherwise negative CT abdomen/pelvis. There has been little change since 08/31/2018. There is decreased left hydroureter. COMMENT: Consistent with the [employer] Incidental Findings Committee Report (J Am Dario Radiol 2010): Unless the patients specific circumstances suggest otherwise, any liver lesion 0.5 cm or less, any cystic kidney lesion less than 1.0 cm, and/or any adrenal lesion 1.0 cm or less not otherwise characterized in this report as possessing suspicious or indeterminate imaging features is/are highly likely to be benign and do not require follow-up imaging or biopsy. Electronically signed by: Maximo Ramirez On 09/28/2018 01:43:11 AM
[2018-09-28] MEDS ORDERED: D5W 1,000 ML IV SCH (02:05)
[2018-09-28] MEDS: D5W/0.45% SODIUM CHLORIDE 1,000 ML IV SCH ×2 (02:15→16:47)
[2018-09-28] MEDS ORDERED: BISACODYL 5 MG TAB PO PRN (02:45)
[2018-09-28] MEDS ORDERED: ACETAMINOPHEN TAB 650MG DOSE (2X325MG) PO PRN (02:45)
--- NOTE | 2018-09-28 04:10 | HPEPDOC ---
[facility] Medical History & Physical Date of Admission Sep 28, 2018 Attending Physician: BONG CARNES MD History and Physical CHIEF COMPLAINT: Hematuria HISTORY OF PRESENT ILLNESS: Patient is a 78 year old male with a past medical history signficant for prostate cancer s/p radiation 15 years ago, atrial fibrillation on aspirin, hypertension, CKD stage IV, non-insulin dependent diabetes mellitus type 2, hyperlipidemia, hypothyroidism, chronic c venous insufficiency, gout, obesity, and history of kidney stones who presented [facility] with complaint of hematuria. He states that earlier today he was having difficulty urinating. When he was finally able to urinate he noticed that his urine was red. Patient states that he was recently hospitalized in August 2018 for blood in his urine. At the time he saw Urology in the hospital and received continuous bladder irrigation. Upon discharge the patient was suppose to follow up with urology for further evaluation however he failed to follow up because he had difficulty traveling to his appointment. He currently states that he does not have any discomfort. He denies burning with urination. He does have some pain when he has issues with voiding. He denies fevers, chills, nausea, or vomiting. He currently on takes 81 mg of aspirin as his anticoagulants were discontinued previously due to his hematuria. In the ER the patient received IV fluid. His urinalysis was positive for blood. He does not have an elevated WBC. The ER did contact Urology who recommended continuous bladder irrigation until evaluated for possible surgery tomorrow. H ospitalist service was consulted and the patient was admitted for further evaluation PAST MEDICAL HISTORY: 1. Atrial Fibrillation, previously on Pradaxa and then Coumadin, discontinued due to bleeding 2. CKD Stage IV follows with Dr. Meng 3. NIDDM2 4. Hypertension 5. Hx of prostate cancer s/p radiation 10-15 years ago 6. Hyperlipidemia 7. Hypothyroidism 8. Chronic venous insufficiency and lymphedema, follows with Dr. Phipps 9. Gout 10. Obesity 11. Kidney Stones PAST SURGICAL HISTORY: 1. Bladder Cauterization 04/2013 2. Cataract Removal 2014 3. Right hemicolectomy due to precancerous polyp 2016 SOCIAL HISTORY: Former smoker who quit 30 years ago. Drinks alcohol socially. He lives at home with his and son. He is currently retired from his job at the [employer]. Previously he worked at the [employer]. FAMILY HISTORY: Father had renal cancer and heart disease. Mother had cancer ALLERGIES: Please see below. REVIEW OF SYSTEMS: CONSTITUTIONAL: Denies fevers, chills, night sweats, unintentional weight loss or weight gain HEENT: Denies cough or dysphagia CARDIOVASCULAR: Denies chest pain. Denies palpitations or feelings of the heart racing RESPIRATORY: Denies shortness of breath. Denies cough. Denies wheezing GASTROINTESTINAL: Denies abdominal pain. Denies nausea, vomiting, diarrhea, or constipation GENITOURINARY: Complains of urinary hesitancy. Complains of bloody urine. SKIN: Denies lesions or rashes NEUROLOGICAL: Denies changes in speech or gait PSYCHIATRIC: Denies depression or anxiety ENDOCRINE: Denies heat intolerance or cold intolerance HEMATOLOGIC/LYMPHATIC: Admits to easy bruising and bleeding HOME MEDICATIONS: Please see below. PHYSICAL EXAMINATION: VITAL SIGNS: Temperature 97.6, pulse 94, respiratory rate 18, blood pressure 152/63, pulse oximetry 95% on room air. GENERAL APPEARANCE: Patient is awake, alert, and oriented. He does not appear to be in any acute distress. He is lying comfortably on exam bed HEENT: Atraumatic normocephalic. Eyes are non-icteric. Trachea is midline. No conjunctival injection CARDIOVASCULAR: Irregularly irregular rhythm. Regular rate. No clicks rubs or murmurs noted LUNGS: Clear vesicular lung sounds to auscultation bilaterally with good respiratory effort. No wheezes, rhonci, or rales ABDOMEN: Obese, soft, nondistended. Nontender to palpation of all 4 quadrants. Positive bowel sounds throughout EXTREMITIES: No edema. Full and equal pulses in bilateral lower extremities NEUROLOGICAL: Normal speech. PSYCHIATRIC: Mood and affect appear appropriate LABORATORY DATA: See below. IMAGING: EXAM: CT Abdomen and Pelvis Without Contrast EXAM DATE/TIME: 09/28/2018 12:22 AM CLINICAL HISTORY: 78 years old, male; Signs and symptoms; Other: Hematuria; Additional info: Hematuria, HX ureteral calc and prostate CA TECHNIQUE: Axial computed tomography images of the abdomen and pelvis without contrast. All CT scans at this facility use at least one of these dose optimization techniques: automated exposure control; mA and/or kV adjustment per patient size (includes targeted exams where dose is matched to clinical indication); or iterative reconstruction. Coronal and sagittal reformatted images were created and reviewed. COMPARISON: CT ABD PELVIS W/O CONTRAST 08/31/2018 7:21 AM FINDINGS: Lower thorax: No acute findings. ABDOMEN: Liver: Slightly nodular surface of the liver. Gallbladder and bile ducts: Normal. No calcified stones. No ductal dilation. Pancreas: Normal. No ductal dilation. Spleen: The spleen measures 13.2 cm. There appear to be portal venous collaterals posterior to the spleen. Adrenals: Normal. No mass. Kidneys and ureters: Nonobstructing bilateral renal calculi measuring up to 7 mm in the lower pole of the right kidney. Probable hyperdense right renal cyst in the upper pole which is not well-defined. Stomach and bowel: Ascending colectomy with ileocolic anastomosis in the right upper quadrant at the proximal transverse colon. Appendix: No evidence of appendicitis. PELVIS: Bladder: There is bladder wall thickening, however, the bladder is nondistended and is nonspecific. Reproductive: Metallic seeds in the posterior prostate. ABDOMEN and PELVIS: Intraperitoneal space: Normal. No free air. No significant fluid collection. Bones/joints: Degenerative changes of the lumbar spine. Soft tissues: Unremarkable. Vasculature: There is moderate atherosclerotic calcification of the abdominal aorta with extension into the iliac arteries. Lymph nodes: Normal. No enlarged lymph nodes. Other findings: Minimal recanalization of ligamentum teres. IMPRESSION: 1. Suggestion of hepatic cirrhosis with borderline splenomegaly and some portal venous collateralization. 2. Nonobstructing bilateral renal calculi. 3. Status post ascending colectomy. 4. Otherwise negative CT abdomen/pelvis. There has been little change since 08/31/2018. There is decreased left hydroureter. MICROBIOLOGY: Please see below. ASSESSMENT and PLAN 1. Hematuria -Patient presented with difficulty with urination and hematuria. He was recently hospitalized for hematuria in August. He was to follow up outpatient with urology however did not. At the time Urology had suspected that the patient had a tumor at the distal ureter. Urology was contacted through the ER with plan for continuous bladder irrigation. -Continuous bladder irrigation per Urology -NPO diet for possible urological surgery -Will need Urology consult in AM 2. CT imaging suggestive of Hepatic Cirrhosis -Patient was previously evaluated for this finding at his previous hospitalization. He is to follow-up with his PCP for further evaluation 3. Atrial Fibrillation -Patient does not take anticoagulation. He does take aspirin. Aspirin is currently on hold due to patients hematuria. -Continue home metoprolol 4. DVT prophylaxis -TEDs and Sequentials Vital Signs Vital Signs Date Time Temp Pulse Resp B/P (MAP) Pulse Ox O2 Delivery O2 Flow Rate FiO2 09/28/18 02:40 96.8 65 20 135/68 (90) 99 Room Air Laboratory Data Labs 24H Laboratory Tests 2 09/27/18 23:24: Urine Color (REMA) REDH, Urine Appearance (REMA) TURBIDH, Urine pH (REMA) 5.0, Urine Specific Lindstrom (REMA) 1.014, Urine Protein 3+H, Bedside Urine Glucose (UA) NEGATIVE, Bedside Urine Ketones (LAB) NEGATIVE, Bedside Urine Blood POSITIVEH, Bedside Urine Nitrite (LAB) NEGATIVE, Bedside Urine Bilirubin (LAB) NEGATIVE, Bedside Urine Urobilinogen (LAB) NORMAL, Bedside Urine Leukocyte Esterase (L TRACEH, Urine Sediment Examination PERFORMED, Urine RBC TNTCH, Urine WBC 3-5H, Urine Squamous Epithelial Cells SMALL AMOUNT, Urine Amorphous Sediment SMALL AMOUNTH, Urine Bacteria SMALL AMOUNTH, Urine Hyaline Casts NONE SEEN, Urine Mucus SMALL AMOUNTH 09/27/18 23:32: Immature Granulocyte % (Auto) 1.0, White Blood Count 5.8, Red Blood Count 3.57L, Hemoglobin 11.5L, Hematocrit 34.7L, Mean Corpuscular Volume 97.2H, Mean Corpuscular Hemoglobin 32.2, Mean Corpuscular Hemoglobin Concent 33.1, Red Cell Distribution Width 14.3, Platelet Count 135L, Neutrophils (%) (Auto) 66.9H, Lymphocytes (%) (Auto) 13.4L, Monocytes (%) (Auto) 11.8H, Eosinophils (%) (Auto) 6.2H, Basophils (%) (Auto) 0.7, Neutrophils # (Auto) 3.9, Lymphocytes # (Auto) 0.8L, Monocytes # (Auto) 0.7, Eosinophils # (Auto) 0.4, Basophils # (Auto) 0.0, Nucleated Red Blood Cells % (auto) 0.0, Prothrombin Time 14.5H, Prothromb Time International Ratio 1.11, Activated Partial Thromboplast Time 29.6, Anion Gap 9, Glomerular Filtration Rate 20.4L, Blood Urea Nitrogen 62H, Creatinine 3.15H, Sodium Level 136, Potassium Level 4.5, Chloride Level 101, Carbon Dioxide Level 26, Calcium Level 8.5L CBC/BMP Laboratory Tests 09/27/18 23:32 Red Blood Count 3.57 L, Mean Corpuscular Volume 97.2 H, Mean Corpuscular Hemoglobin 32.2, Mean Corpuscular Hemoglobin Concent 33.1, Red Cell Distribution Width 14.3, Neutrophils (%) (Auto) 66.9 H, Lymphocytes (%) (Auto) 13.4 L, Monocytes (%) (Auto) 11.8 H, Eosinophils (%) (Auto) 6.2 H, Basophils (%) (Auto) 0.7, Neutrophils # (Auto) 3.9, Lymphocytes # (Auto) 0.8 L, Monocytes # (Auto) 0.7, Eosinophils # (Auto) 0.4, Basophils # (Auto) 0.0, Calcium Level 8.5 L Microbiology Microbiology 09/27/18 Urine Culture, Received Pending Home Medications Scheduled (Icaps) 1 Cap Cap, 1 CAP PO DAILY (Calcium 600 + D 600-200 mg-Unit) 1 Tab Tab, 1 TAB PO DAILY Allopurinol (Zyloprim) 300 Mg Tab, 300 MG PO DAILY Aspirin (Aspir-81) 81 Mg Tab, 81 MG PO DAILY Cyanocobalamin (Vitamin B12) 1,000 Mcg Tab, 1,000 MCG PO DAILY Ferrous Sulfate (Ferrous Sulfate) 325 Mg Tab, 325 MG PO DAILY Levothyroxine Sodium (Synthroid) 175 Mcg Tab, 175 MCG PO DAILY Loperamide Hcl (Imodium A-D) 2 Mg Tab, 2 MG PO DAILY Metolazone (Metolazone) 2.5 Mg Tab, 2.5 MG PO DAILY Metoprolol Succinate (Metoprolol Succinate ER) 50 Mg Tab, 50 MG PO DAILY Potassium Chloride (Klor-Con M20) 20 Meq Tabcr, 20 MEQ PO DAILY Torsemide (Torsemide) 20 Mg Tab, 20 MG PO DAILY Vitamin D (Vitamin D) 1,000 Unit Cap, 1,000 UNIT PO DAILY Allergies Coded Allergies: No Known Drug Allergy (Verified Allergy, Unknown, 03/29/17) GME ATTESTATION GME ATTESTATION My faculty preceptor for this patient encounter was physically present during the encounter and was fully available. All aspects of the patient interview, examination, medical decision making process, and medical care plan development were reviewed and approved by the faculty preceptor. The faculty preceptor is aware and concurs with the plan as stated in the body of this note and will attest to such by his/her cosignature. RUBEN PADRON DO Sep 28, 2018 04:10
[2018-09-28] MEDS: LEVOTHYROXINE 100MCG TABLET (0.1MG) PO SCH (06:10)
[2018-09-28] MEDS: LEVOTHYROXINE 75MCG TABLET (0.075MG) PO SCH (06:10)
[2018-09-28 06:52] LABS: HEMATOCRIT 34.8 % (42.0-52.0); HEMOGLOBIN 11.4 g/dl (13.5-17.5); MEAN CORPUSCULAR HEMOGLOBIN 32.3 pg (27.0-33.0); MEAN CORPUSCULAR HGB CONC 32.8 g/dl (32.0-36.5); MEAN CORPUSCULAR VOLUME 98.6 fl (80.0-96.0); PLATELET COUNT, AUTOMATED 117 10^3/uL (150-450); RED BLOOD COUNT 3.53 10^6/uL (4.30-6.10); WHITE BLOOD COUNT 5.5 10^3/uL (4.0-10.0)
[2018-09-28 07:22] LABS: CALCIUM LEVEL 8.7 MG/DL (8.8-10.2); CREATININE FOR GFR 2.92 MG/DL (0.70-1.30); GLOMERULAR FILTRATION RATE 22.2 (>35); POTASSIUM SERUM 4.4 MEQ/L (3.5-5.1)
[2018-09-28] MEDS: FERROUS SULFATE 325MG TAB PO SCH (08:30)
[2018-09-28] MEDS: LOPERAMIDE 2 MG CAP PO SCH (08:30)
[2018-09-28] MEDS: METOPROLOL SUCC (TopROL XL) 50MG **XL** TAB PO SCH (08:31)
[2018-09-28] MEDS: CYANOCOBALAMIN 500 MCG TAB PO SCH (08:31)
[2018-09-28] MEDS: ALLOPURINOL 300 MG TAB PO SCH (08:31)
[2018-09-28] MEDS: VITAMIN D 1,000 INTERNATIONAL UNITS TABLET PO SCH (08:31)
[2018-09-28] MEDS: metOLazone 2.5 MG TAB PO SCH (09:15)
[2018-09-28 17:25] VITALS: BP 140/78
[2018-09-28 22:00] VITALS: BP 149/74
[2018-09-29] MEDS: D5W/0.45% SODIUM CHLORIDE 1,000 ML IV SCH (04:37)
[2018-09-29] MEDS: LEVOTHYROXINE 75MCG TABLET (0.075MG) PO SCH (05:20)
[2018-09-29] MEDS: LEVOTHYROXINE 100MCG TABLET (0.1MG) PO SCH (05:20)
[2018-09-29 05:52] LABS: HEMATOCRIT 31.3 % (42.0-52.0); HEMOGLOBIN 10.1 g/dl (13.5-17.5); MEAN CORPUSCULAR HEMOGLOBIN 32.3 pg (27.0-33.0); MEAN CORPUSCULAR HGB CONC 32.3 g/dl (32.0-36.5); PLATELET COUNT, AUTOMATED 104 10^3/uL (150-450); RED BLOOD COUNT 3.13 10^6/uL (4.30-6.10); WHITE BLOOD COUNT 4.9 10^3/uL (4.0-10.0)
[2018-09-29 06:00] VITALS: BP 147/72
[2018-09-29 06:10] LABS: CALCIUM LEVEL 8.8 MG/DL (8.8-10.2); CREATININE FOR GFR 2.14 MG/DL (0.70-1.30); GLOMERULAR FILTRATION RATE 31.8 (>35); POTASSIUM SERUM 4.2 MEQ/L (3.5-5.1)
[2018-09-29] MEDS: FERROUS SULFATE 325MG TAB PO SCH (08:29)
[2018-09-29] MEDS: CYANOCOBALAMIN 500 MCG TAB PO SCH (08:29)
[2018-09-29] MEDS: METOPROLOL SUCC (TopROL XL) 50MG **XL** TAB PO SCH (08:30)
[2018-09-29] MEDS: LOPERAMIDE 2 MG CAP PO SCH (08:30)
[2018-09-29] MEDS: ALLOPURINOL 300 MG TAB PO SCH (08:30)
[2018-09-29] MEDS: metOLazone 2.5 MG TAB PO SCH (08:30)
[2018-09-29] MEDS: VITAMIN D 1,000 INTERNATIONAL UNITS TABLET PO SCH (08:30)
[2018-09-29 14:00] VITALS: BP 135/96
--- NOTE | 2018-09-29 16:50 | IPNPDOC ---
Subjective Date Seen The patient was seen on 09/29/18. Subjective Chief Complaint/HPI Patient seen and examined at bedside. Reports that he is feeling much better. Denies any gross hematuria at this time. The urine noted in his Haskins catheter bag appears to be clear/yellow. We will follow-up with urology regarding further recommendations. Objective Physical Examination General Exam: Positive: Alert, Cooperative, No Acute Distress ENT Exam: Positive: Atraumatic, Mucous membr. moist/pink Neck Exam: Negative: JVD Chest Exam: Positive: Clear to auscultation, Normal air movement Heart Exam: Positive: Rate Normal, Normal S1 Abdomen Exam: Positive: Soft; Negative: Tenderness Male Exam: Negative: Normal Genital Exam (positive for Haskins catheter noted to be draining yellow/clear urine) Extremity Exam: Negative: Tenderness, Swelling Psych Exam: Positive: Oriented x 3 Assessment /Plan Plan/VTE VTE Prophylaxis Ordered?: Yes Plan Hematuria in Patient with Hx of Prostate Ca s/p Radiation 15 yrs ago PSA levels within normal limits during previous hospitalization s/p Continuous bladder irrigation as per Urology--The patient's Urine has cleared up and he no longer has gross Hematuria Urology on board--will f/u with input CT imaging suggestive of Hepatic Cirrhosis F/U with PCP for further work up Hx of Atrial Fibrillation Not on AC. Continue metoprolol Chronic kidney disease stage III Serum creatinine at baseline Iron deficiency anemia Hemoglobin stable Continue iron supplementation History of systolic congestive heart failure Appears compensated Continue metolazone, metoprolol as ordered Hypothyroidism Continue levothyroxine History of gout Continue allopurinol DVT prophylaxis TEDs and Sequentials Disposition-pending clinical improvement. We will follow-up with urology recommendations. VS, I&O, 24H, Fishbone Vital Signs/I&O Vital Signs Date Time Temp Pulse Resp B/P (MAP) Pulse Ox O2 Delivery O2 Flow Rate FiO2 09/29/18 14:00 98.5 84 20 135/96 (109) 97 09/28/18 17:05 Room Air I&O- Last 24 Hours up to 6 AM 09/29/18 06:00 Intake Total 3095 ml Output Total 2600 ml Balance 495 ml Laboratory Data 24H LABS Laboratory Tests 2 09/29/18 05:31: Nucleated Red Blood Cells % (auto) 0.0, Anion Gap 10, Glomerular Filtration Rate 31.8L, Blood Urea Nitrogen 48H, Creatinine 2.14H, Sodium Level 138, Potassium Level 4.2, Chloride Level 106, Carbon Dioxide Level 22, Calcium Level 8.8 CBC/BMP Laboratory Tests 09/29/18 05:31 Red Blood Count 3.13 L, Mean Corpuscular Volume 100.0 H, Mean Corpuscular Hemoglobin 32.3, Mean Corpuscular Hemoglobin Concent 32.3, Red Cell Distribution Width 14.5, Calcium Level 8.8 Microbiology Microbiology 09/27/18 Urine Culture - Final, Complete BONG CARNES MD Sep 29, 2018 16:50
[2018-09-29 22:00] VITALS: BP 152/62
[2018-09-30] MEDS: LEVOTHYROXINE 100MCG TABLET (0.1MG) PO SCH (05:41)
[2018-09-30] MEDS: LEVOTHYROXINE 75MCG TABLET (0.075MG) PO SCH (05:41)
[2018-09-30 06:00] VITALS: BP 130/64
[2018-09-30 06:24] LABS: HEMATOCRIT 31.6 % (42.0-52.0); HEMOGLOBIN 10.2 g/dl (13.5-17.5); MEAN CORPUSCULAR HEMOGLOBIN 32.3 pg (27.0-33.0); MEAN CORPUSCULAR HGB CONC 32.3 g/dl (32.0-36.5); PLATELET COUNT, AUTOMATED 101 10^3/uL (150-450); RED BLOOD COUNT 3.16 10^6/uL (4.30-6.10)
[2018-09-30 06:40] LABS: CALCIUM LEVEL 8.8 MG/DL (8.8-10.2); CREATININE FOR GFR 1.96 MG/DL (0.70-1.30); GLOMERULAR FILTRATION RATE 35.2 (>35); POTASSIUM SERUM 4.1 MEQ/L (3.5-5.1)
--- NOTE | 2018-09-30 06:52 | CR ---
DATE OF CONSULTATION: 09/28/2018 REASON FOR CONSULTATION: Difficulty urinating and gross hematuria in a patient with a history of prostate cancer status post radiation therapy and kidney stones. HISTORY OF PRESENT ILLNESS: The patient is an 78-year-old gentleman who presented to the emergency room with complaints of difficulty urinating. A post void residual (PVR) only showed 89 mL and a Haskins catheter was placed and he had gross hematuria. He has a past medical history significant for prostate cancer status post radiation therapy 15 years ago and has atrial fibrillation on aspirin, high blood pressure, chronic kidney disease stage IV recently needing dialysis, non-insulin dependent diabetes type 2 and other medical issues. He had been hospitalized from August 31 for approximately a week, found to have Enterococcus in his urine at the time and also gross hematuria. A CT scan was repeated 09/28/2018 without contrast and it shows liver cirrhosis. He has bilateral nonobstructing stones with the largest measuring 78 mm in the right lower pole. There is also a small right hyperdense cyst that is not visualized well on ultrasound. There had been some mild left hydroureter which was decreased from his admission in August without any stones seen. He does have a history of kidney stones and had a ureteroscopy in 1972 and has passed about 7-8 stones on his own. Prior to admission he denied any burning with urination, urgency, frequency, or change in his urinary stream. He does not take any Flomax. PAST MEDICAL HISTORY: 1. Prostate cancer status post radiation therapy 10-15 years ago. 2. Atrial fibrillation, previously was on Pradaxa and Coumadin but this was discontinued due to his gross hematuria and he is now taking aspirin only. 3. Chronic kidney disease stage IV followed by Dr. Meng with his recent baseline creatinine being approximately 2 and several years ago was about 1.6. 4. Non-insulin dependent diabetes. 5. High blood pressure. 6. Hyperlipidemia. 7. Hypothyroidism. 8. Chronic venous insufficiency. 9. Lymphedema followed by Dr. Phipps. 10. Gout. 11. Obesity. 12. Kidney stones. PAST SURGICAL HISTORY: 1. Bladder cauterization in 2012. 2. Kidney stone surgery with what sounds like ureteroscopy in 1972. 3. Cataract removal in 2004. 4. Right hemicolectomy with a precancerous polyp in 2006. MEDICATIONS: - Allopurinol - aspirin - vitamin B12 - ferrous sulfate - Synthroid - Imodium - metolazone - metoprolol - Klor-con - torsemide - vitamin D ALLERGIES: No known drug allergies. SOCIAL HISTORY: He is a former smoker, quit 30 years ago. He drinks alcohol socially. He lives at home with his and son. He is retired from his job working at the [employer] and he previously worked in [place]. . FAMILY HISTORY: His father had renal cancer and heart disease and his mother had cancer. REVIEW OF SYSTEMS: A 12 system review was done and he did have some urinary hesitancy but no gross hematuria prior to admission just after being catheterized. A b12 system review is otherwise negative. PHYSICAL EXAMINATION: GENERAL: This is a well-developed, well-nourished, morbidly obese gentleman sitting in a chair in the emergency room alert and oriented times three. VITAL SIGNS: His temperature maximum (T-max) is 96.2. His pulse is 70. His blood pressure is 120/67. HEENT: His head is normocephalic, atraumatic. NECK: His trachea is midline and he has no significant supraclavicular or cervical adenopathy. HEART: His heart has an irregular rhythm but a fairly regular rate and there are no rubs, gallops or murmurs appreciated. LUNGS: His lungs are clear to auscultation and percussion with good respiratory effort and no wheezes, rhonchi or rales. There is no costovertebral angle (CVA) tenderness. ABDOMEN: His abdomen is obese but otherwise soft, nontender and nondistended without any rebound or guarding. A Haskins catheter is in place now draining clear yellow urine off of continuous bladder irrigation. EXTREMITIES: His extremities show chronic venous disease and are wrapped at this point, but without any significant edema. NEUROLOGIC EXAM: His neurologic exam is nonfocal. LABORATORY DATA: His BUN is 59 and his creatinine is 2.92. His hemoglobin is 11.4, hematocrit 34.8 and his white blood count is normal at 5.5. A microscopic urinalysis shows too numerous to count white blood cells with only 3-5 white blood cells per high-power field. A urine culture from August did show an Enterococcus. His PSA level on 07/09 was 0.1 and this is been slowly coming up through the years. IMAGING STUDIES: A CT scan of the abdomen and pelvis done without contrast on 09/28/2018 shows cirrhosis. There are bilateral nonobstructing kidney stones with the largest measuring 78 mm in the right lower pole. There had been some left hydroureter which is decreased from a previous study. There is a right renal cyst which is slightly hyperdense but was not visualized well on a renal ultrasound done 09/01/2018. 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 2. History of nephrolithiasis with a CT scan showing a nonobstructing 8 mm right lower pole stone and some bilateral stones but without any significant hydroureteronephrosis; just a very small amount of left hydroureter. 3. Chronic kidney disease stage I now with a BUN of 59 and a creatinine of 2.92 in a patient who has required dialysis. 4. History of smoking, quit 30 years ago. 5. Multiple medical problems including atrial fibrillation on aspirin now and off his other anticoagulants, on insulin for diabetes, high blood pressure, 6. Recent admission for gross hematuria in August. PLAN: 1. Since the urine is completely clear now, I would recommend stopping continuous bladder irrigation (CBI) and plugging the three-way Haskins catheter and hand irrigating as needed to await final urine culture and treat any infections accordingly and if he does have another infection, I recommend prophylaxis with methenamine 1 gram by mouth twice a day. 2. Recommend starting Flomax on discharge. 3. Continue Haskins catheter for several days before a voiding trial. 4. Continuing following PSA levels and I would start to follow these every six months. 5. The patient can have the Haskins catheter to a leg bag and a night bag. 6. The patient will require outpatient cystoscopy and even possibly inpatient cystoscopy with a left retrograde pyelogram because of the mild obstruction in the future.
[2018-09-30] MEDS: ALLOPURINOL 300 MG TAB PO SCH (08:16)
[2018-09-30] MEDS: VITAMIN D 1,000 INTERNATIONAL UNITS TABLET PO SCH (08:17)
[2018-09-30] MEDS: CYANOCOBALAMIN 500 MCG TAB PO SCH (08:17)
[2018-09-30] MEDS: METOPROLOL SUCC (TopROL XL) 50MG **XL** TAB PO SCH (08:17)
[2018-09-30] MEDS: FERROUS SULFATE 325MG TAB PO SCH (08:17)
[2018-09-30] MEDS: LOPERAMIDE 2 MG CAP PO SCH (08:17)
[2018-09-30] MEDS: metOLazone 2.5 MG TAB PO SCH (08:18)
[2018-09-30 14:00] VITALS: BP 150/96
--- NOTE | 2018-09-30 14:10 | IPNPDOC ---
Subjective Date Seen The patient was seen on 09/30/18. Subjective Chief Complaint/HPI Patient seen and examined at the bedside. Denies any more gross hematuria. Haskins catheter bag noted to have clear/yellow urine. Otherwise no acute overnight events noted. Objective Physical Examination General Exam: Positive: Alert, Cooperative, No Acute Distress ENT Exam: Positive: Atraumatic, Mucous membr. moist/pink Neck Exam: Negative: JVD Chest Exam: Positive: Clear to auscultation, Normal air movement Heart Exam: Positive: Rate Normal, Normal S1 Abdomen Exam: Positive: Soft; Negative: Tenderness Male Exam: Negative: Normal Genital Exam (positive for Haskins catheter noted to be draining yellow/clear urine) Extremity Exam: Negative: Tenderness, Swelling Psych Exam: Positive: Oriented x 3 Assessment /Plan Plan/VTE VTE Prophylaxis Ordered?: Yes Plan Hematuria in Patient with Hx of Prostate Ca s/p Radiation 15 yrs ago PSA levels within normal limits during previous hospitalization s/p Continuous bladder irrigation as per Urology--The patient's Urine has cleared up and he no longer has gross Hematuria Urology on board--patient can be discharged if his urine remains clear and can follow up as an outpatient for further work up. CT imaging suggestive of Hepatic Cirrhosis F/U with PCP for further work up Hx of Atrial Fibrillation Not on AC. Continue metoprolol Chronic kidney disease stage III Serum creatinine at baseline Iron deficiency anemia Hemoglobin stable Continue iron supplementation History of systolic congestive heart failure Appears compensated Continue metolazone, metoprolol as ordered Hypothyroidism Continue levothyroxine History of gout Continue allopurinol DVT prophylaxis TEDs and Sequentials Disposition-pending clinical improvement. We will attempt voiding trial tomorrow and anticipate D/C in the next 24-48hrs if there are no further complications. VS, I&O, 24H, Fishbone Vital Signs/I&O Vital Signs Date Time Temp Pulse Resp B/P (MAP) Pulse Ox O2 Delivery O2 Flow Rate FiO2 09/30/18 08:17 76 152/84 09/30/18 06:00 97.3 17 95 09/28/18 17:05 Room Air I&O- Last 24 Hours up to 6 AM 09/30/18 06:00 Intake Total 1590 ml Output Total 1975 ml Balance -385 ml Laboratory Data 24H LABS Laboratory Tests 2 09/30/18 05:22: Nucleated Red Blood Cells % (auto) 0.0, Anion Gap 7L, Glomerular Filtration Rate 35.2, Blood Urea Nitrogen 43H, Creatinine 1.96H, Sodium Level 140, Potassium Level 4.1, Chloride Level 106, Carbon Dioxide Level 27, Calcium Level 8.8 CBC/BMP Laboratory Tests 09/30/18 05:22 Red Blood Count 3.16 L, Mean Corpuscular Volume 100.0 H, Mean Corpuscular Hemoglobin 32.3, Mean Corpuscular Hemoglobin Concent 32.3, Red Cell Distribution Width 14.2, Calcium Level 8.8 Microbiology Microbiology 09/27/18 Urine Culture - Final, Complete BONG CARNES MD Sep 30, 2018 14:10
[2018-09-30 22:00] VITALS: BP 131/79
[2018-10-01] MEDS: LEVOTHYROXINE 75MCG TABLET (0.075MG) PO SCH (05:53)
[2018-10-01] MEDS: LEVOTHYROXINE 100MCG TABLET (0.1MG) PO SCH (05:53)
[2018-10-01 06:00] VITALS: BP 129/67
[2018-10-01 06:06] LABS: HEMATOCRIT 30.4 % (42.0-52.0); HEMOGLOBIN 9.8 g/dl (13.5-17.5); MEAN CORPUSCULAR HEMOGLOBIN 32.3 pg (27.0-33.0); MEAN CORPUSCULAR HGB CONC 32.2 g/dl (32.0-36.5); MEAN CORPUSCULAR VOLUME 100.3 fl (80.0-96.0); PLATELET COUNT, AUTOMATED 104 10^3/uL (150-450); RED BLOOD COUNT 3.03 10^6/uL (4.30-6.10); WHITE BLOOD COUNT 5.2 10^3/uL (4.0-10.0)
[2018-10-01 06:23] LABS: CALCIUM LEVEL 8.9 MG/DL (8.8-10.2); CREATININE FOR GFR 1.78 MG/DL (0.70-1.30); GLOMERULAR FILTRATION RATE 39.3 (>35)
[2018-10-01] MEDS: metOLazone 2.5 MG TAB PO SCH (08:21)
[2018-10-01] MEDS: FERROUS SULFATE 325MG TAB PO SCH (08:21)
[2018-10-01] MEDS: CYANOCOBALAMIN 500 MCG TAB PO SCH (08:21)
[2018-10-01] MEDS: METOPROLOL SUCC (TopROL XL) 50MG **XL** TAB PO SCH (08:21)
[2018-10-01] MEDS: VITAMIN D 1,000 INTERNATIONAL UNITS TABLET PO SCH (08:21)
[2018-10-01] MEDS: LOPERAMIDE 2 MG CAP PO SCH (08:21)
[2018-10-01] MEDS: ALLOPURINOL 300 MG TAB PO SCH (08:21)
--- NOTE | 2018-10-01 12:35 | IPNPDOC ---
Subjective Date Seen The patient was seen on 10/01/18. Subjective Chief Complaint/HPI Patient seen and examined at bedside. No acute overnight events noted. Denies any more gross hematuria. We will discontinue the patient's Haskins catheter this morning and attempt a voiding trial. Objective Physical Examination General Exam: Positive: Alert, Cooperative, No Acute Distress ENT Exam: Positive: Atraumatic, Mucous membr. moist/pink Neck Exam: Negative: JVD Chest Exam: Positive: Clear to auscultation, Normal air movement Heart Exam: Positive: Rate Normal, Normal S1 Abdomen Exam: Positive: Soft; Negative: Tenderness Extremity Exam: Negative: Tenderness, Swelling Psych Exam: Positive: Oriented x 3 Assessment /Plan Plan/VTE VTE Prophylaxis Ordered?: Yes Plan Hematuria in Patient with Hx of Prostate Ca s/p Radiation 15 yrs ago PSA levels within normal limits during previous hospitalization last month s/p Continuous bladder irrigation as per Urology--The patient's Urine has cleared up and he no longer has gross Hematuria Urology on board--We will attempt a voiding trial today, and see how the patient does. Patient to follow up as an outpatient for cystoscopy on discharge. CT imaging suggestive of Hepatic Cirrhosis F/U with PCP for further work up Hx of Atrial Fibrillation Not on AC. Continue metoprolol Chronic kidney disease stage III Serum creatinine at baseline Iron deficiency anemia Hemoglobin stable Continue iron supplementation History of systolic congestive heart failure Appears compensated Continue metolazone, metoprolol as ordered Hypothyroidism Continue levothyroxine History of gout Continue allopurinol DVT prophylaxis TEDs and Sequentials Disposition-pending clinical improvement. We will attempt voiding trial today an d anticipate D/C in the next 24hrs if there are no further complications. [facility] Vital Signs/I&O Vital Signs Date Time Temp Pulse Resp B/P (MAP) Pulse Ox O2 Delivery O2 Flow Rate FiO2 10/01/18 08:21 60 129/67 10/01/18 06:00 97.8 18 96 09/28/18 17:05 Room Air I&O- Last 24 Hours up to 6 AM 10/01/18 06:00 Intake Total 1290 ml Output Total 1650 ml Balance -360 ml Laboratory Data 24H LABS Laboratory Tests 2 10/01/18 05:32: Nucleated Red Blood Cells % (auto) 0.0, Anion Gap 3L, Glomerular Filtration Rate 39.3, Blood Urea Nitrogen 40H, Creatinine 1.78H, Sodium Level 138, Potassium Level 4.0, Chloride Level 106, Carbon Dioxide Level 29, Calcium Level 8.9 CBC/BMP Laboratory Tests 10/01/18 05:32 Red Blood Count 3.03 L, Mean Corpuscular Volume 100.3 H, Mean Corpuscular Hemoglobin 32.3, Mean Corpuscular Hemoglobin Concent 32.2, Red Cell Distribution Width 14.3, Calcium Level 8.9 Microbiology Microbiology 09/27/18 Urine Culture - Final, Complete BONG CARNES MD Oct 01, 2018 12:35
[2018-10-01 14:00] VITALS: BP 181/79
[2018-10-01] MEDS ORDERED: TAMSULOSIN 0.4 MG CAP PO SCH (21:00)
[2018-10-01 22:00] VITALS: BP 136/75
[2018-10-02] MEDS: LEVOTHYROXINE 75MCG TABLET (0.075MG) PO SCH (05:51)
[2018-10-02] MEDS: LEVOTHYROXINE 100MCG TABLET (0.1MG) PO SCH (05:51)
[2018-10-02 05:59] LABS: HEMATOCRIT 29.9 % (42.0-52.0); HEMOGLOBIN 9.6 g/dl (13.5-17.5); MEAN CORPUSCULAR HEMOGLOBIN 31.8 pg (27.0-33.0); MEAN CORPUSCULAR HGB CONC 32.1 g/dl (32.0-36.5); RED BLOOD COUNT 3.02 10^6/uL (4.30-6.10); WHITE BLOOD COUNT 4.8 10^3/uL (4.0-10.0)
[2018-10-02 06:00] VITALS: BP 133/85
[2018-10-02 06:28] LABS: CALCIUM LEVEL 8.9 MG/DL (8.8-10.2); CREATININE FOR GFR 1.8 MG/DL (0.70-1.30); GLOMERULAR FILTRATION RATE 38.8 (>35)
[2018-10-02 07:07] LABS: PLATELET COUNT, AUTOMATED 96 10^3/uL (150-450)
[2018-10-02 10:46] VITALS: BP 127/74
[2018-10-02] MEDS: VITAMIN D 1,000 INTERNATIONAL UNITS TABLET PO SCH (10:51)
[2018-10-02] MEDS: LOPERAMIDE 2 MG CAP PO SCH (10:51)
[2018-10-02] MEDS: metOLazone 2.5 MG TAB PO SCH (10:51)
[2018-10-02] MEDS: CYANOCOBALAMIN 500 MCG TAB PO SCH (10:51)
[2018-10-02 10:52] VITALS: BP 127/74
[2018-10-02] MEDS: ALLOPURINOL 300 MG TAB PO SCH (10:52)
[2018-10-02] MEDS: FERROUS SULFATE 325MG TAB PO SCH (10:52)
[2018-10-02] MEDS: METOPROLOL SUCC (TopROL XL) 50MG **XL** TAB PO SCH (10:52)
[2018-10-02] MEDS ORDERED: FLOM0.4C39 PO (11:34)
--- NOTE | 2018-10-02 16:41 | DS.PDOC ---
Discharge Summary General Date of Admission Sep 28, 2018 at 02:40 Date of Discharge 10/02/18 Specialist/Consultants Involve Dr. Garrett of urology Discharge Summary PROCEDURES PERFORMED DURING STAY: None. ADMITTING/DISCHARGE DIAGNOSES: Hematuria in Patient with Hx of Prostate Ca s/p Radiation [address] imaging suggestive of Hepatic Cirrhosis History of atrial fibrillation Chronic kidney disease stage III Iron deficiency anemia History of systolic congestive heart failure Hypothyroidism COMPLICATIONS/CHIEF COMPLAINT: Hematuria. HISTORY OF PRESENT ILLNESS: . 78 year old male with a past medical history signficant for prostate cancer s/p radiation 15 years ago, atrial fibrillation on aspirin, hypertension, CKD stage IV, non-insulin dependent diabetes mellitus type 2, hyperlipidemia, hypothyroidism, chronic venous insufficiency, gout, obesity, and history of kidney stones who presented to the [facility] ER with complaint of hematuria. Of note, the patient had been recently hospitalized in August for approximately one week after he was admitted for gross hematuria and found to have enterococcus in his urine. The patient was scheduled for cystoscopy at the time, however this was deferred to the outpatient setting as his hematuria resolved. During this hospitalization, the patient was once again seen by urology and a continuous bladder irrigation order was placed. The patient's hematuria resolved thereafter. The patient's Haskins catheter has been removed and he has been urinating without any acute complaints. The patient has remained hemodynamically stable and has not required any blood products. At this time, the patient states that he is feeling much better and is eager to return home. He has been counseled by urology to follow-up as an outpatient for cystoscopy and a possible left retrograde pyelogram for mild left-sided hydroureteronephrosis. The patient has been prescribed Flomax. I've advised the patient follow-up with his primary care physician within 7 days. DISCHARGE MEDICATIONS: Please see below. ALLERGIES: Please see below. PHYSICAL EXAMINATION ON DISCHARGE: VITAL SIGNS: Please see below. General Exam: Positive: Alert, Cooperative, No Acute Distress ENT Exam: Positive: Atraumatic, Mucous membr. moist/pink Neck Exam: Negative: JVD Chest Exam: Positive: Clear to auscultation, Normal air movement Heart Exam: Positive: Rate Normal, Normal S1 Abdomen Exam: Positive: Soft; Negative: Tenderness Extremity Exam: Negative: Tenderness, Swelling Psych Exam: Positive: Oriented x 3 LABORATORY DATA: Please see below. IMAGING: EXAM: CT Abdomen and Pelvis Without Contrast EXAM DATE/TIME: 09/28/2018 12:22 AM CLINICAL HISTORY: 78 years old, male; Signs and symptoms; Other: Hematuria; Additional info: Hematuria, HX ureteral calc and prostate CA TECHNIQUE: Axial computed tomography images of the abdomen and pelvis without contrast. All CT scans at this facility use at least one of these dose optimization techniques: automated exposure control; mA and/or kV adjustment per patient size (includes targeted exams where dose is matched to clinical indication); or iterative reconstruction. Coronal and sagittal reformatted images were created and reviewed. COMPARISON: CT ABD PELVIS W/O CONTRAST 08/31/2018 7:21 AM FINDINGS: Lower thorax: No acute findings. ABDOMEN: Liver: Slightly nodular surface of the liver. Gallbladder and bile ducts: Normal. No calcified stones. No ductal dilation. Pancreas: Normal. No ductal dilation. Spleen: The spleen measures 13.2 cm. There appear to be portal venous collaterals posterior to the spleen. Adrenals: Normal. No mass. Kidneys and ureters: Nonobstructing bilateral renal calculi measuring up to 7 mm in the lower pole of the right kidney. Probable hyperdense right renal cyst in the upper pole which is not well-defined. Stomach and bowel: Ascending colectomy with ileocolic anastomosis in the right upper quadrant at the proximal transverse colon. Appendix: No evidence of appendicitis. PELVIS: Bladder: There is bladder wall thickening, however, the bladder is nondistended and is nonspecific. Reproductive: Metallic seeds in the posterior prostate. ABDOMEN and PELVIS: Intraperitoneal space: Normal. No free air. No significant fluid collection. Bones/joints: Degenerative changes of the lumbar spine. Soft tissues: Unremarkable. Vasculature: There is moderate atherosclerotic calcification of the abdominal aorta with extension into the iliac arteries. Lymph nodes: Normal. No enlarged lymph nodes. Other findings: Minimal recanalization of ligamentum teres. IMPRESSION: 1. Suggestion of hepatic cirrhosis with borderline splenomegaly and some portal venous collateralization. 2. Nonobstructing bilateral renal calculi. 3. Status post ascending colectomy. 4. Otherwise negative CT abdomen/pelvis. There has been little change since 08/31/2018. There is decreased left hydroureter. COMMENT: Consistent with the [employer] Incidental Findings Committee Report (J Am Dario Radiol 2010): Unless the patients specific circumstances suggest otherwise, any liver lesion 0.5 cm or less, any cystic kidney lesion less than 1.0 cm, and/or any adrenal lesion 1.0 cm or less not otherwise characterized in this report as possessing suspicious or indeterminate imaging features is/are highly likely to be benign and do not require follow-up imaging or biopsy. PROGNOSIS: Fair ACTIVITY: As tolerated. DIET: 2 g low sodium diet DISCHARGE PLAN: DISPOSITION: Home, Self-Care. DISCHARGE INSTRUCTIONS: He has been counseled by urology to follow-up as an outpatient for cystoscopy and a possible left retrograde pyelogram for mild left-sided hydroureteron ephrosis. The patient has been prescribed Flomax. I've advised the patient follow-up with his primary care physician within 7 days. DISCHARGE CONDITION: Stable. TIME SPENT ON DISCHARGE: Greater than 30 minutes. Vital Signs/I&Os Vital Signs Date Time Temp Pulse Resp B/P (MAP) Pulse Ox O2 Delivery O2 Flow Rate FiO2 10/02/18 10:52 80 127/74 10/02/18 06:00 98.1 23 96 09/28/18 17:05 Room Air I&O- Last 24 Hours up to 6 AM 10/02/18 06:00 Intake Total 1260 ml Output Total 300 ml Balance 960 ml Laboratory Data Labs 24H Laboratory Tests 2 10/02/18 05:25: Nucleated Red Blood Cells % (auto) 0.0, Immature Platelet Fraction 1.3, Anion Gap 7L, Glomerular Filtration Rate 38.8, Blood Urea Nitrogen 38H, Creatinine 1.80H, Sodium Level 138, Potassium Level 4.0, Chloride Level 104, Carbon Dioxide Level 27, Calcium Level 8.9 CBC/BMP Laboratory Tests 10/02/18 05:25 Red Blood Count 3.02 L, Mean Corpuscular Volume 99.0 H, Mean Corpuscular Hemoglobin 31.8, Mean Corpuscular Hemoglobin Concent 32.1, Red Cell Distribution Width 14.0, Calcium Level 8.9 Microbiology Microbiology 09/27/18 Urine Culture - Final, Complete Discharge Medications Scheduled (Icaps) 1 Cap Cap, 1 CAP PO DAILY, (Reported) (Calcium 600 + D 600-200 mg-Unit) 1 Tab Tab, 1 TAB PO DAILY, (Reported) Allopurinol (Zyloprim) 300 Mg Tab, 300 MG PO DAILY, (Reported) Aspirin (Aspir-81) 81 Mg Tab, 81 MG PO DAILY, (Reported) Cyanocobalamin (Vitamin B12) 1,000 Mcg Tab, 1,000 MCG PO DAILY, (Reported) Ferrous Sulfate (Ferrous Sulfate) 325 Mg Tab, 325 MG PO DAILY, (Reported) Levothyroxine Sodium (Synthroid) 175 Mcg Tab, 175 MCG PO DAILY, (Reported) Loperamide Hcl (Imodium A-D) 2 Mg Tab, 2 MG PO DAILY, (Reported) Metolazone (Metolazone) 2.5 Mg Tab, 2.5 MG PO DAILY, (Reported) Metoprolol Succinate (Metoprolol Succinate ER) 50 Mg Tab, 50 MG PO DAILY, (Reported) Potassium Chloride (Klor-Con M20) 20 Meq Tabcr, 20 MEQ PO DAILY, (Reported) Tamsulosin Hydrochloride (Flomax) 0.4 Mg Cap, 0.4 MG PO QHS Torsemide (Torsemide) 20 Mg Tab, 20 MG PO DAILY, (Reported) Vitamin D (Vitamin D) 1,000 Unit Cap, 1,000 UNIT PO DAILY, (Reported) Allergies Coded Allergies: No Known Drug Allergy (Verified Allergy, Unknown, 03/29/17) BONG CARNES MD Oct 02, 2018 16:41
== END 2018-10-02 12:30 | disposition home or self-care (01) | DRG 699 ==
LOC: M ED 22:42 → M ED INP 09-28 02:40 → M MSPAV 09-28 17:25
PROVIDERS: ADMIT Hospitalist; ATTEND Internal Medicine
DX: N30.41 Irradiation cystitis with hematuria (principal); I50.22 Chronic systolic (congestive) heart failure; I13.0 Hypertensive heart and chronic kidney disease with heart failure and stage 1 through stage 4 chronic kidney disease, or unspecified chronic kidney disease; N18.4 Chronic kidney disease, stage 4 (severe); Z68.41 Body mass index [BMI] 40.0-44.9, adult; I48.91 Unspecified atrial fibrillation; E11.22 Type 2 diabetes mellitus with diabetic chronic kidney disease; E78.5 Hyperlipidemia, unspecified; E03.9 Hypothyroidism, unspecified; I87.2 Venous insufficiency (chronic) (peripheral); I89.0 Lymphedema, not elsewhere classified; D50.9 Iron deficiency anemia, unspecified; M10.9 Gout, unspecified; N28.1 Cyst of kidney, acquired; N20.0 Calculus of kidney; K74.60 Unspecified cirrhosis of liver; E66.01 Morbid (severe) obesity due to excess calories; Z87.442 Personal history of urinary calculi; Z85.46 Personal history of malignant neoplasm of prostate; Z92.3 Personal history of irradiation; Z87.891 Personal history of nicotine dependence; Z98.49 Cataract extraction status, unspecified eye; Z90.49 Acquired absence of other specified parts of digestive tract; Z79.82 Long term (current) use of aspirin; Z79.899 Other long term (current) drug therapy

== ENCOUNTER → 2018-10-09 | Outpatient (REF) | payer MEDICARE ==
[~2018-10-09] MED LIST changes: +IMOD2TAB16 PO; +KLOR20TA42 PO
[2018-10-09 16:37] LABS: BASO % 0.4 % (0.0-1.0); EOS # 0.4 10^3/uL (0.0-0.50); EOS % 7.1 % (0.0-3.0); HEMATOCRIT 34.3 % (42.0-52.0); HEMOGLOBIN 11.3 g/dl (13.5-17.5); LYMPH # 0.7 10^3/uL (1.5-4.5); LYMPH % 13.3 % (24.0-44.0); MEAN CORPUSCULAR HEMOGLOBIN 31.8 pg (27.0-33.0); MEAN CORPUSCULAR HGB CONC 32.9 g/dl (32.0-36.5); MEAN CORPUSCULAR VOLUME 96.6 fl (80.0-96.0); MONO # 0.6 10^3/uL (0.0-0.8); MONO % 11.7 % (0.0-5.0); NEUTROPHILS # 3.4 10^3/uL (1.8-7.7); NEUTROPHILS % 66.9 % (36.0-66.0); PLATELET COUNT, AUTOMATED 155 10^3/uL (150-450); RED BLOOD COUNT 3.55 10^6/uL (4.30-6.10); WHITE BLOOD COUNT 5.1 10^3/uL (4.0-10.0)
[2018-10-09 16:50] LABS: ALBUMIN 3.5 GM/DL (3.2-5.2); BILIRUBIN,TOTAL 0.4 MG/DL (0.2-1.0); CALCIUM LEVEL 9.4 MG/DL (8.8-10.2); CREATININE FOR GFR 2.19 MG/DL (0.70-1.30); POTASSIUM SERUM 4.7 MEQ/L (3.5-5.1); TOTAL PROTEIN 7.4 GM/DL (6.4-8.2)
== END ==
LOC: M SFHCLERA 13:49
PROVIDERS: ATTEND Family Medicine
DX: N18.4 Chronic kidney disease, stage 4 (severe) (principal); D63.1 Anemia in chronic kidney disease; R16.0 Hepatomegaly, not elsewhere classified

== ENCOUNTER → 2018-11-13 | Outpatient (REF) | payer MEDICARE ==
[~2018-11-13] MED LIST changes: -/CLON2TA PO; -/HCTZ25TA PO; -/TAMS4CA PO; +CALCCAP4 PO; +CLON-413 PO; +D3 H10002 PO; +HYDR-3644 PO; +HYDR-3715 PO; +ICAPTAB PO; +LISI-1046 PO; -LISI2.5T5 PO; -NORCOTAB PO; +OXYC1TAB23 PO; -PERCOCET PO; +VITA100018 PO; -VITA100072 PO
[2018-11-13 14:07] LABS: AMORPHOUS SEDIMENT SMALL (NEGATIVE); APPEARANCE, URINE CLEAR (CLEAR); BACTERIA, URINE AUTO NEGATIVE (NEGATIVE); BILIRUBIN, URINE AUTO NEGATIVE (NEGATIVE); BLOOD, URINE BLOOD NEGATIVE (NEGATIVE); COLOR, URINE YELLOW (YELLOW); GLUCOSE, URINE (UA) AUTO NEGATIVE (NEGATIVE); KETONE, URINE AUTO NEGATIVE (NEGATIVE); LEUKOCYTE ESTERASE, URINE AUTO NEGATIVE (NEGATIVE); NITRITE, URINE AUTO NEGATIVE (NEGATIVE); PROTEIN, URINE AUTO NEGATIVE (NEGATIVE); RBC, URINE AUTO 0 /HPF (0-3); SPECIFIC GRAVITY URINE AUTO 1.008 (1.002-1.035); SQUAMOUS EPITHELIAL CELL UR AU 0 /HPF (0-6); UROBILINOGEN, URINE AUTO 0.2 mg/dL (0.0-2.0); WBC, URINE AUTO 1 /HPF (0-3)
[2018-11-13 14:11] LABS: HEMATOCRIT 36.7 % (42.0-52.0); MEAN CORPUSCULAR HEMOGLOBIN 31.9 pg (27.0-33.0); MEAN CORPUSCULAR HGB CONC 32.7 g/dl (32.0-36.5); MEAN CORPUSCULAR VOLUME 97.6 fl (80.0-96.0); PLATELET COUNT, AUTOMATED 139 10^3/uL (150-450); RED BLOOD COUNT 3.76 10^6/uL (4.30-6.10); WHITE BLOOD COUNT 5.4 10^3/uL (4.0-10.0)
[2018-11-13 14:25] LABS: PARTIAL THROMBOPLASTIN TIME 27.7 SECONDS (25.4-37.6)
[2018-11-13 14:43] LABS: INR 1.08; PROTHROMBIN TIME 14.1 SECONDS (12.1-14.4)
[2018-11-13 14:57] LABS: CALCIUM LEVEL 9.7 MG/DL (8.8-10.2); CREATININE FOR GFR 2.84 MG/DL (0.70-1.30); GLOMERULAR FILTRATION RATE 22.9 (>35); POTASSIUM SERUM 4.1 MEQ/L (3.5-5.1)
== END ==
LOC: M SFHCLERA 11:29
PROVIDERS: ATTEND Family Medicine
DX: Z01.818 Encounter for other preprocedural examination (principal); N13.4 Hydroureter; E11.22 Type 2 diabetes mellitus with diabetic chronic kidney disease; N18.4 Chronic kidney disease, stage 4 (severe); I48.91 Unspecified atrial fibrillation; E78.5 Hyperlipidemia, unspecified; Z79.899 Other long term (current) drug therapy
CPT/HCPCS: 80048; 81001; 85027; 85610; 85730; 87086; 93005; G0463

== ENCOUNTER 2018-11-25 07:29 | Day surgery (SDC) | payer MEDICARE ==
[~2018-11-25] VITALS: Ht 175.3 cm; Wt 141.4 kg
[~2018-11-25 07:29] MED LIST changes: +LIDOCAINE 1% MDV 20ML VIAL SQ PRN
[2018-11-25] MEDS ORDERED: LR 1,000 ML IV ONE (07:45)
[2018-11-25] MEDS ORDERED: ceFAZolin SOD 1 GM in D5W MINI-BAG PLUS 50 ML IV ONE (07:45)
[2018-11-25] MEDS ORDERED: dexameTHASONE 4 MG/ML 1ML VIAL (J1100) As Ordered ONE (08:05)
[2018-11-25] MEDS ORDERED: ONDANSETRON 4MG/2ML VIAL (J2405) As Ordered ONE (08:05)
[2018-11-25] MEDS ORDERED: PROPOFOL 200 MG/20 ML VIAL As Ordered ONE ×2 (08:06→09:44)
[2018-11-25] MEDS ORDERED: LIDOCAINE 2% INJ 100 MG/5 ML SDV (FOR ANES.) As Ordered ONE (08:06)
[2018-11-25] MEDS ORDERED: fentaNYL 100 MCG/2 ML INJECTION (J3010) As Ordered ONE (08:06)
[2018-11-25] MEDS ORDERED: CONRAY-60 60% 50ML VIAL (Q9961) As Ordered ONE ×3 (08:31→09:55)
[2018-11-25] MEDS ORDERED: METOPROLOL 5 MG/5 ML VIAL As Ordered ONE (08:58)
--- NOTE | 2018-11-25 10:29 | REP ---
C-ARM VIEWS DURING LEFT URETERAL STENT PLACEMENT: Multiple C-ARM views are performed. Contrast was injected into a moderately dilated left ureter and pelvicaliceal system. Left ureteral stent is placed with the proximal end coiled in the left renal pelvis and the distal end extending into the inferior aspect of the left pelvis but the pigtail is not visualized extending below the imaged portion of the pelvis. 2 minutes and 44 seconds of fluoroscopy time was utilized. Electronically Signed by Mateo Torres MD 11/26/2018 10:10 A
[2018-11-25] MEDS ORDERED: ONDANSETRON 4MG/2ML VIAL (J2405) IV PRN (11:15)
[2018-11-25] MEDS ORDERED: NORCO, ANEXSIA 5/325MG TABLET (HYDROcodone/ACETAMINOPHEN) PO PRN (11:15)
[2018-11-25] MEDS ORDERED: fentaNYL 100 MCG/2 ML INJECTION (J3010) IV PRN (11:15)
[2018-11-25] MEDS ORDERED: METOCLOPRAMIDE INJ 10MG/2ML VIAL (J2765) IV PRN (11:15)
[2018-11-25] MEDS ORDERED: LR 1,000 ML IV SCH (11:15)
--- NOTE | 2018-11-25 11:23 | RO ---
DATE OF PROCEDURE: 11/25/2018 PREOPERATIVE DIAGNOSES: 1. History of gross hematuria with chronic kidney disease but with acute renal insufficiency. 2. History of nephrolithiasis. 3. 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 4. Left hydroureteronephrosis. POSTOPERATIVE DIAGNOSES: 1. History of gross hematuria with chronic kidney disease but with acute renal insufficiency. 2. History of nephrolithiasis. 3. 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 4. Left hydroureteronephrosis. 5. Narrowing of the distal left ureter with a ureteral stricture. PROCEDURES: Cystoscopy, left retrograde pyelogram, left ureteroscopy, left ureteral balloon dilation, and left ureteral stent placement. SURGEON: Nicole Garrett MD ANESTHESIA: General. MEDICATIONS: Ancef 3 grams preoperatively. DRAINS: None. FINDINGS: Hydroureteronephrosis of the distal ureter, which was significantly narrowed, although there was excellent efflux of contrast. This area continued to be narrowed. HISTORY OF PRESENT ILLNESS: The patient is an 78-year-old gentleman who was admitted to the hospital and seen on consultation 09/28/2018 for difficulty urinating and gross hematuria. He had a history of prostate cancer, status post radiation therapy, and also had had multiple kidney stones. He does have chronic kidney disease stage IV, but his creatinine has been as low as 1.78 and more recently has been in the high 2s. A CT scan was done 09/28/2018, and he has bilateral nonobstructing stones with the largest measuring 7 mm in the right lower pole. There was also mild left hydroureteronephrosis. Renal nuclear scan was done on 09/02/2018, and there was persistent mild dilation of the distal left ureter and the T1/2 could not be calculated as the renal function curves were upward sloping because of his chronic kidney disease. At this point, it was decided to bring him to the operating room for a cystoscopy and retrograde pyelogram with possible intervention and anything else that needed to be done. Informed consent was obtained in both verbal and written form. DESCRIPTION OF PROCEDURE: The patient was brought into the operating room. Sequential compression devices were in place, and preoperative antibiotics were given. Next, he was prepped and draped in the usual fashion. A 21-Kazakh cystoscope was inserted. The urethra was noted to be open without any evidence of lesions or strictures. Upon entering the prostatic urethra, he had significant lateral hypertrophy and a very elevated bladder neck. His prostatic urethra was approximately 3-1/2 to 4 cm in length. Upon entering the bladder, there was trabeculation, but there was no evidence of stones, erythematous patches, lesions, or other significant abnormalities. A retrograde pyelogram was done on the left-hand side, and this did show significant narrowing of the distal ureter, and then it was dilated from above that. When I did take out the cone-tip catheter, though, there was excellent efflux of the contrast material, and the system did empty in a fairly quick time. Because of the physical findings, though, it was still decided to dilate to see whether this affects his creatinine level. At this point, a balloon dilator was placed. In using contrast, this was then opened to a total pressure of 18 cm of pressure and left in place for 10 minutes. Then, a 7-Kazakh double-J ureteral stent was placed with an excellent curl seen in the left renal pelvis and down in the bladder. The patient's bladder was emptied, and he was returned to the recovery room in stable condition. My plan will be to repeat a blood urea nitrogen (BUN) and creatinine in about 2 weeks to see if with the stent in place his creatinine decreases. If it does, we can try to remove the ureteral stent to see if the dilation helped, but if not, the patient may require further stent placements in the future if the creatinine is affected positively.
[2018-11-25 12:40] VITALS: BP 141/68
== END 2018-11-25 12:50 | disposition home or self-care (01) ==
LOC: M SDC 07:29
PROVIDERS: ATTEND Specialist
DX: R31.0 Gross hematuria (principal); N13.1 Hydronephrosis with ureteral stricture, not elsewhere classified; Z87.442 Personal history of urinary calculi; Z85.46 Personal history of malignant neoplasm of prostate; Z92.3 Personal history of irradiation; I48.91 Unspecified atrial fibrillation; I25.10 Atherosclerotic heart disease of native coronary artery without angina pectoris; I12.9 Hypertensive chronic kidney disease with stage 1 through stage 4 chronic kidney disease, or unspecified chronic kidney disease; E11.9 Type 2 diabetes mellitus without complications; E78.5 Hyperlipidemia, unspecified; Z79.82 Long term (current) use of aspirin; Z79.84 Long term (current) use of oral hypoglycemic drugs; E03.9 Hypothyroidism, unspecified; M10.9 Gout, unspecified; Z79.899 Other long term (current) drug therapy; N18.9 Chronic kidney disease, unspecified; E66.9 Obesity, unspecified
CPT/HCPCS: 52332; 52341; 74420; C1769; C2617; J0690; J2405; J3010; Q9961

== ENCOUNTER → 2018-12-09 | Outpatient (REF) | payer MEDICARE ==
[~2018-12-09] MED LIST changes: -LIDOCAINE 1% MDV 20ML VIAL SQ PRN
[2018-12-09 12:24] LABS: CALCIUM LEVEL 8.9 MG/DL (8.8-10.2); CREATININE FOR GFR 2.51 MG/DL (0.70-1.30); GLOMERULAR FILTRATION RATE 26.5 (>35); POTASSIUM SERUM 3.8 MEQ/L (3.5-5.1)
== END ==
LOC: M SFHCLERA 09:29
PROVIDERS: ATTEND Family Medicine
DX: N18.4 Chronic kidney disease, stage 4 (severe) (principal)

== ENCOUNTER 2018-12-22 12:43 | Observation (INO) | payer MEDICARE ==
[~2018-12-22] VITALS: Ht 175.3 cm; Wt 133.6 kg
[2018-12-22] MEDS ORDERED: TORS100T PO (12:51)
--- NOTE | 2018-12-22 13:30 | REP ---
Clinical: Dizziness and weakness . Findings: Age-related atrophy and microvascular ischemic changes are appreciated. The ventricles and sulci are symmetric. Torres-white differentiation is maintained. There is no evidence for acute intracranial hemorrhage, mass/mass effect, pathology or infarction. No extra-axial fluid collection. Calvarium is intact. Paranasal sinuses and mastoid air cells are clear. Atherosclerotic changes to the internal carotid arteries noted. Impression: Age related atrophy and microvascular ischemic changes. No acute intracranial hemorrhage, infarction, or mass/mass effect. Electronically Signed by Len Ledesma MD 12/22/2018 01:21 P
--- NOTE | 2018-12-22 13:44 | REP ---
Clinical: Altered mental status. Technique: AP and lateral. Comparison: 05/15/2013. Findings: Cardiomegaly is appreciated along with chronic interstitial changes. Small focal area of lower lobe atelectasis cannot be excluded. No effusion. No pneumothorax. Skeletal structures intact. Impression: Minimal basilar atelectasis. Electronically Signed by Len Ledesma MD 12/22/2018 01:36 P
[2018-12-22] MEDS ORDERED: NS 500 ML IV ONE (13:45)
[2018-12-22 14:18] LABS: BASO % 0.2 % (0.0-1.0); EOS # 0.1 10^3/uL (0.0-0.50); EOS % 1.2 % (0.0-3.0); HEMATOCRIT 32.6 % (42.0-52.0); HEMOGLOBIN 10.7 g/dl (13.5-17.5); LYMPH # 0.4 10^3/uL (1.5-4.5); LYMPH % 4.6 % (24.0-44.0); MEAN CORPUSCULAR HEMOGLOBIN 32.2 pg (27.0-33.0); MEAN CORPUSCULAR HGB CONC 32.8 g/dl (32.0-36.5); MEAN CORPUSCULAR VOLUME 98.2 fl (80.0-96.0); MONO # 0.9 10^3/uL (0.0-0.8); MONO % 9.3 % (0.0-5.0); NEUTROPHILS # 7.9 10^3/uL (1.8-7.7); NEUTROPHILS % 84.1 % (36.0-66.0); PLATELET COUNT, AUTOMATED 170 10^3/uL (150-450); RED BLOOD COUNT 3.32 10^6/uL (4.30-6.10); WHITE BLOOD COUNT 9.4 10^3/uL (4.0-10.0)
[2018-12-22 14:29] LABS: INR 1.12; PROTHROMBIN TIME 14.6 SECONDS (12.1-14.4)
[2018-12-22 14:30] LABS: PARTIAL THROMBOPLASTIN TIME 29.9 SECONDS (25.4-37.6)
[2018-12-22 14:45] LABS: ALBUMIN 3.1 GM/DL (3.2-5.2); ALT/SGPT 21 U/L (12-78); BILIRUBIN,DIRECT 0.2 MG/DL (0.0-0.2); BILIRUBIN,TOTAL 0.5 MG/DL (0.2-1.0); BLOOD UREA NITROGEN 79 MG/DL (7-18); CALCIUM LEVEL 8.6 MG/DL (8.8-10.2); CARBON DIOXIDE LEVEL 30 MEQ/L (21-32); CHLORIDE LEVEL 96 MEQ/L (98-107); CK-MB VALUE MASS < 1.0 NG/ML (<3.6); CPK CREATINE PHOSPHOKINASE 41 U/L (39-308); CREATININE FOR GFR 3.22 MG/DL (0.70-1.30); GLOMERULAR FILTRATION RATE 19.9 (>35); GLUCOSE, FASTING 125 MG/DL (70-100); IRON (FE) 48 UG/DL (65-175); MB/CK RELATIVE INDEX 2.44 (< OR =4); NT-PRO BNP 2715 PG/ML (<450); PERCENT SATURATION 18.8 % (19.7-50.0); POTASSIUM SERUM 4.6 MEQ/L (3.5-5.1); SODIUM LEVEL 137 MEQ/L (136-145); THYROID STIMULATING HORMONE 0.944 uIU/ML (0.358-3.740); TOTAL IRON BINDING CAPACITY 256 UG/DL (250-450); TOTAL PROTEIN 7.8 GM/DL (6.4-8.2); TROPONIN I < 0.02 NG/ML (< 0.10)
[2018-12-22] MEDS ORDERED: NS 1,000 ML IV SCH ×2 (15:30→16:30)
[2018-12-22] MEDS ORDERED: FINA5TAB2 PO (15:40)
[2018-12-22] MEDS ORDERED: CALCTAB7 PO (15:40)
[2018-12-22] MEDS ORDERED: CALCIUM CARBONATE 500 MG CHEW U/D PO PRN (16:15)
--- NOTE | 2018-12-22 16:55 | HPEPDOC ---
General Date of Admission Dec 22, 2018 at 15:07 Date of Service: Dec 22, 2018 Chief Complaint The patient is a 78-year-old male admitted with a reason for visit of Near Syncope. History of Present Illness 78 year old male with a past medical history signficant for prostate cancer s/p radiation 15 years ago, atrial fibrillation on aspirin, hypertension, CKD stage IV, non-insulin dependent diabetes mellitus type 2, hyperlipidemia, hypothyroidism, chronic venous insufficiency, gout, obesity, systolic congestive heart failure, and history of kidney stones presents to the ER with a chief complaint of near syncopal episode. The patient states that he was sitting in [employer] and had just come back from the bathroom when all of a sudden he started to feel lightheaded and dizzy. The patient states that he felt like he was given a pass out. During this time, the patient denied any complaints of fevers, c hills, shortness of breath, chest pain, palpitations, abdominal pain, or any nausea/vomiting/diarrhea. Up until this point, patient denies any acute complaints. He presented to the ER for further evaluation. In the ER, the patient was noted to be hypotensive with a blood pressure of 70/40. He states that he has been continuing to take his medication as prescribed. Of note, the patient's serum creatinine was noted to be 3.2 (Baseline 2.2-2.8). The patient will be admitted to the hospitalist service for further workup of near syncopal episode, and worsening renal insufficiency. Home Medications Scheduled Allopurinol (Zyloprim) 300 Mg Tab, 300 MG PO DAILY, (Reported) Aspirin (Aspir 81) 81 Mg Tab, 81 MG PO DAILY, (Reported) Calcium Carbonate (Calcium) 600 Mg Tablet, 600 MG PO DAILY, (Reported) Cholecalciferol (Vitamin D3) (Vitamin D3) 1,000 Unit Capsule, 1,000 UNIT PO DAILY, (Reported) Cyanocobalamin (Vitamin B-12) (Vitamin B-12) 1,000 Mcg Tab, 1,000 MCG PO DAILY, (Reported) Ferrous Sulfate (Ferrous Sulfate) 325 Mg Tab, 325 MG PO DAILY, (Reported) Finasteride (Finasteride) 5 Mg Tablet, 5 MG PO DAILY, (Reported) Levothyroxine Sodium (Levothyroxine Sodium) 175 Mcg Tab, 175 MCG PO DAILY, (Reported) Lovastatin (Lovastatin) 20 Mg Tablet, 20 MG PO QHS, (Reported) Metolazone (Metolazone) 2.5 Mg Tab, 2.5 MG PO DAILY, (Reported) Metoprolol Succinate (Metoprolol Succinate) 50 Mg Tab, 50 MG PO DAILY, (Reported) Potassium Chloride (Klor-Con M20) 20 Meq Tabcr, 20 MEQ PO DAILY, (Reported) Tamsulosin HCl (Flomax) 0.4 Mg Capsule, 0.4 MG PO DAILY, (Reported) Torsemide (Torsemide) 100 Mg Tablet, 100 MG PO DAILY, (Reported) Vit A/Vit C/Vit E/Zinc/Copper (Icaps Areds Formula Dr Tablet) 1 Each Tablet.dr, 1 TAB PO DAILY, (Reported) Allergies Uncoded Allergies: OYSTERS (Allergy, Severe, HIVES, 12/22/18) Past Medical History Medical History As noted above. Surgical History 1. Bladder Cauterization 04/2013 2. Cataract Removal 2014 3. Right hemicolectomy due to precancerous polyp 2016 Social History * Smoker: Denies Alcohol: occationally Drugs: denies Lives with at home. Functionally independent at baseline. Currently on unemployment. Review of Systems Other systems 10 point review of systems negative unless otherwise specified in HPI. Physical Examination General Exam: Positive: Alert, Cooperative, No Acute Distress, Other (morbidly obese appearing) ENT Exam: Positive: Atraumatic, Mucous membr. moist/pink Chest Exam: Positive: Clear to auscultation, Normal air movement Heart Exam: Positive: Rate Normal, Irregular Rhythm, Normal S1, Normal S2 Telemetry: Positive: Atrial fibrillation Abdomen Exam: Positive: Soft; Negative: Tenderness Extremity Exam: Negative: Tenderness Skin Exam: Positive: Other skin issue (macular rash noted on the cheeks of the face / rosacea) Psych Exam: Positive: Oriented x 3 Vital Signs Vital Signs Date Time Temp Pulse Resp B/P (MAP) Pulse Ox O2 Delivery O2 Flow Rate FiO2 12/22/18 14:46 82 99/54 (69) 96 12/22/18 14:30 Room Air 12/22/18 12:43 97.9 18 Laboratory Data Labs 24H Laboratory Tests 2 12/22/18 13:06: Immature Granulocyte % (Auto) 0.6, White Blood Count 9.4, Red Blood Count 3.32L, Hemoglobin 10.7L, Hematocrit 32.6L, Mean Corpuscular Volume 98.2H, Mean Corpuscular Hemoglobin 32.2, Mean Corpuscular Hemoglobin Concent 32.8, Red Cell Distribution Width 14.2, Platelet Count 170, Neutrophils (%) (Auto) 84.1H, Lymphocytes (%) (Auto) 4.6L, Monocytes (%) (Auto) 9.3H, Eosinophils (%) (Auto) 1.2, Basophils (%) (Auto) 0.2, Neutrophils # (Auto) 7.9H, Lymphocytes # (Auto) 0.4L, Monocytes # (Auto) 0.9H, Eosinophils # (Auto) 0.1, Basophils # (Auto) 0.0, Nucleated Red Blood Cells % (auto) 0.0, Prothrombin Time 14.6H, Prothromb Time International Ratio 1.12, Activated Partial Thromboplast Time 29.9, Anion Gap 11, Glomerular Filtration Rate 19.9L, Calcium Level 8.6L, Iron Level 48L, Total Iron Binding Capacity 256, Transferrin % Saturation 18.8L, Aspartate Amino Transf (AST/SGOT) 16, Alanine Aminotransferase (ALT/SGPT) 21, Alkaline Phosphatase 78, Total Bilirubin 0.5, Direct Bilirubin 0.2, Total Creatine Kinase 41, Creatine Kinase MB < 1.0, Creatine Kinase MB Relative Index 2.44, Troponin I < 0.02, CK-Pgl-J-Type Natriuretic Peptide 2715H, Total Protein 7.8, Albumin 3.1L, Albumin/Globulin Ratio 0.66L, Thyroid Stimulating Hormone (TSH) 0.944 12/22/18 14:27: Lactic Acid Level 1.6 CBC/BMP Laboratory Tests 12/22/18 13:06 Red Blood Count 3.32 L, Mean Corpuscular Volume 98.2 H, Mean Corpuscular Hemoglobin 32.2, Mean Corpuscular Hemoglobin Concent 32.8, Red Cell Distribution Width 14.2, Neutrophils (%) (Auto) 84.1 H, Lymphocytes (%) (Auto) 4.6 L, Monocytes (%) (Auto) 9.3 H, Eosinophils (%) (Auto) 1.2, Basophils (%) (Auto) 0.2, Neutrophils # (Auto) 7.9 H, Lymphocytes # (Auto) 0.4 L, Monocytes # (Auto) 0.9 H, Eosinophils # (Auto) 0.1, Basophils # (Auto) 0.0 Microbiology Microbiology 12/22/18 Blood Culture, Received Pending 12/22/18 Blood Culture, Received Pending Plan / VTE VTE Prophylaxis Ordered?: Yes Plan Plan Near Syncopal Episode CT Head with no acute findings Patient hypotensive, possibly 2/2 overdiuresis given high dose of diuretics at home No acute infectious etiology noted B/P responsive to IVF Hydration in the ER We will check orthostatic blood pressure 2-D echocardiogram ordered Monitor on telemetry Physical therapy order functional optimization Elevation in Serum Cr in a patient with CKD Stage IV Serum Cr 3.2 (Baseline 2.2-2.8)---Possibly secondary to overdiuresis, patient denies any recent changes to his medication, or any changes of urinary habits. Hold Nephrotoxins Renally dose medications Gentle IV fluid hydration ordered Renal ultrasound ordered in view of recent left ureteral stent placement for left-sided hydronephrosis We will follow-up with a repeat BMP in a.m. History of systolic congestive heart failure Patient does not appear to be in decompensated state at this time We will hold diuretic therapy and provide gentle fluid hydration given aforementioned issues 2-D echocardiogram ordered History of atrial fibrillation Not on anticoagulation, continue aspirin Metoprolol on hold 2/2 Hypotension on arrival Hx of Left Sided Hydronephrosis s/p Ureteral Stent s/p cystoscopy, left retrograde pyelogram, left ureteroscopy, left ureteral balloon dilation, and left usual stent placement on 11/21/[address] Garrett of urology Follow-up as an outpatient. 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
[2018-12-22 18:10] VITALS: BP_SYST 100; BP_SYST 108; BP_SYST 140; BP_DIAS 48; BP_DIAS 54; BP_DIAS 77
--- NOTE | 2018-12-22 18:32 | REP ---
Clinical: Chronic renal disease with acute renal insufficiency. Technique: Real time sosa scale ultrasound examination using curved array transducer. Findings: The kidneys are normal in reniform shape and hyperechoic consistent with chronic medical renal disease. Right kidney measures 13.4 x 6.8 x 6.2 cm without hydronephrosis, nephrolithiasis, cystic or renal mass lesion. Left kidney measures 14.4 x 5.7 x 6.3 cm and demonstrates mild hydronephrosis with stent identified. No nephrolithiasis, cystic or mass lesion appreciated. The bladder is unremarkable and left ureteral stent is identified. Impression: 1. Chronic medical renal disease. Right kidney without hydronephrosis. 2. Left kidney demonstrates ureteral stent in satisfactory position with mild hydronephrosis. Electronically Signed by Len Ledesma MD 12/22/2018 06:24 P
--- NOTE | 2018-12-22 19:39 | ECGEPIP ---
[facility] - ED Test Date: 2018-12-22 Pat Name: REBECCA JAUREGUI Department: Room: - Gender: Male [employer]sman: YASIR : 1940 Requested By: CLOVER ARANGO Order Number: [id number] Reading MD: Hafsa Mosquera Measurements Intervals Treichlers Rate: 77 P: DE: -1 QRS: QRSD: 105 T: 50 QT: 419 QTc: 475 Interpretive Statements ATRIAL FIBRILLATION LEFTWARD AXIS POSSIBLE ANTERIOR MYOCARDIAL INFARCTION, PROBABLY OLD ABNORMAL RHYTHM ECG NONSPECIFIC ST T WAVE CHANGES PROLONGED QTC CW 08/31/[address] T WAVE CHANGES Electronically Signed on 12-22-2018 19:39:30 EDT by Hafsa Mosquera
[2018-12-22] MEDS: SIMVASTATIN 20 MG TAB PO SCH (20:45)
[2018-12-22] MEDS: HEPARIN SOD (PORCINE) 5000 UNITS/ML VIAL SC SCH (20:45)
[2018-12-22 21:00] VITALS: BP_SYST 116; BP_SYST 121; BP_SYST 136; BP_DIAS 65; BP_DIAS 68; BP_DIAS 69
[2018-12-22 22:00] VITALS: BP 107/59
[2018-12-23 02:00] VITALS: BP 96/57
[2018-12-23] MEDS ORDERED: NS 1,000 ML IV SCH (05:30)
[2018-12-23] MEDS: LEVOTHYROXINE 25MCG TABLET (0.025MG) PO SCH (05:49)
[2018-12-23] MEDS: LEVOTHYROXINE 150MCG TABLET (0.15MG) PO SCH (05:49)
[2018-12-23 06:00] VITALS: BP 122/70
[2018-12-23 08:00] VITALS: BP_SYST 100; BP_SYST 136; BP_SYST 139; BP_DIAS 45; BP_DIAS 76; BP_DIAS 78
[2018-12-23 08:17] LABS: HEMATOCRIT 32.6 % (42.0-52.0); HEMOGLOBIN 10.2 g/dl (13.5-17.5); MEAN CORPUSCULAR HEMOGLOBIN 30.4 pg (27.0-33.0); MEAN CORPUSCULAR HGB CONC 31.3 g/dl (32.0-36.5); PLATELET COUNT, AUTOMATED 136 10^3/uL (150-450); RED BLOOD COUNT 3.36 10^6/uL (4.30-6.10); WHITE BLOOD COUNT 5.7 10^3/uL (4.0-10.0)
[2018-12-23] MEDS: CYANOCOBALAMIN 500 MCG TAB PO SCH (08:30)
[2018-12-23] MEDS: ASPIRIN 81 MG ENTERIC TAB PO SCH (08:30)
[2018-12-23] MEDS: VITAMIN D 1,000 INTERNATIONAL UNITS TABLET PO SCH (08:30)
[2018-12-23] MEDS: FINASTERIDE 5 MG TAB PO SCH (08:30)
[2018-12-23] MEDS: FERROUS SULFATE 325MG TAB PO SCH (08:30)
[2018-12-23] MEDS: TAMSULOSIN 0.4 MG CAP PO SCH (08:30)
[2018-12-23] MEDS: HEPARIN SOD (PORCINE) 5000 UNITS/ML VIAL SC SCH ×2 (08:30→21:57)
[2018-12-23 08:45] LABS: CALCIUM LEVEL 9.2 MG/DL (8.8-10.2); CREATININE FOR GFR 3.45 MG/DL (0.70-1.30); GLOMERULAR FILTRATION RATE 18.3 (>35); POTASSIUM SERUM 4.2 MEQ/L (3.5-5.1)
[2018-12-23 10:00] VITALS: BP 130/71
[2018-12-23 14:00] VITALS: BP 131/70
--- NOTE | 2018-12-23 14:58 | IPNPDOC ---
Subjective Date Seen The patient was seen on 12/23/18. Subjective Chief Complaint/HPI Patient seen and examined at the bedside. Denies any acute overnight events. Denies any further complaints of lightheadedness/dizziness. No complaints of chest pain or palpitations. Objective Physical Examination General Exam: Positive: Alert, Cooperative, No Acute Distress, Other (morbidly obese appearing) ENT Exam: Positive: Atraumatic, Mucous membr. moist/pink Chest Exam: Positive: Clear to auscultation, Normal air movement Heart Exam: Positive: Rate Normal, Irregular Rhythm, Normal S1, Normal S2 Telemetry: Positive: Atrial fibrillation Abdomen Exam: Positive: Soft; Negative: Tenderness Extremity Exam: Negative: Tenderness Skin Exam: Positive: Other skin issue (macular rash noted on the cheeks of the face 2/2 rosacea) Psych Exam: Positive: Oriented x 3 Assessment /Plan Plan/VTE VTE Prophylaxis Ordered?: Yes Plan Near Syncopal Episode CT Head with no acute findings Patient hypotensive, possibly 2/2 overdiuresis given high dose of diuretics at home No acute infectious etiology noted B/P responsive to IVF Hydration Orthostatic blood pressure has been negative following IVF here 2D echocardiogram pending Monitor on telemetry Physical therapy on board for functional optimization Elevation in Serum Cr in a patient with CKD Stage IV Serum Cr 3.2-->3.45 (Baseline 2.2-2.8)---Possibly secondary to overdiuresis, patient denies any recent changes to his medication, or any changes of urinary habits. Hold Nephrotoxins Renally dose medications s/p IV fluid hydration ordered Renal ultrasound with no acute findings noted Patient's serum creatinine has risen despite IV fluid hydration, although the patient is not overtly fluid overloaded at this time--anticipate improvement in Serum Cr tomorrow We will discontinue IVF hydration today as the patient is no longer hypotensive, and not orthostatic Will follow up with BMP in the AM, if Serum Cr continues to worsen, we will consult Nephrology History of systolic congestive heart failure Patient does not appear to be in decompensated state at this time 2-D echocardiogram pending History of atrial fibrillation Not on anticoagulation, continue aspirin Metoprolol on hold 2/2 Hypotension on arrival Hx of Left Sided Hydronephrosis s/p Ureteral Stent s/p cystoscopy, left retrograde pyelogram, left ureteroscopy, left ureteral balloon dilation, and left usual stent placement on 11/21/[address] Garrett of urology Follow-up as an outpatient. 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 Follow-up as an outpatient Iron deficiency anemia Continue iron supplementation Hypothyroidism Continue levothyroxine Morbid obesity Complicating care DVT prophylaxis Heparin subcutaneous VS, I&O, 24H, Fishbone Vital Signs/I&O Vital Signs Date Time Temp Pulse Resp B/P (MAP) Pulse Ox O2 Delivery O2 Flow Rate FiO2 12/23/18 14:00 97.0 84 17 131/70 (90) 97 12/22/18 17:31 Room Air I&O- Last 24 Hours up to 6 AM 12/23/18 06:00 Intake Total 60 ml Output Total 475 ml Balance -415 ml Laboratory Data 24H LABS Laboratory Tests 2 12/22/18 22:26: Urine Color YELLOW, Urine Appearance TURBIDH, Urine pH 5.0, Urine Specific [place] 1.012, Urine Protein 2+H, Urine Glucose (UA) NEGATIVE, Urine Ketones NEGATIVE, Urine Blood 1+H, Urine Nitrite NEGATIVE, Urine Bilirubin NEGATIVE, Urine Urobilinogen 0.2, Urine Leukocyte Esterase 3+H, Urine WBC (Auto) TNTCH, Urine RBC (Auto) 14H, Urine Hyaline Casts (Auto) 0, Urine Bacteria (Auto) 3+H, Urine Squamous Epithelial Cells 0, Urine Sperm (Auto) 12/23/18 07:59: Nucleated Red Blood Cells % (auto) 0.0, Anion Gap 8, Glomerular Filtration Rate 18.3L, Blood Urea Nitrogen 87H, Creatinine 3.45H, Sodium Level 134L, Potassium Level 4.2, Chloride Level 97L, Carbon Dioxide Level 29, Calcium Level 9.2 CBC/BMP Laboratory Tests 12/23/18 07:59 Red Blood Count 3.36 L, Mean Corpuscular Volume 97.0 H, Mean Corpuscular Hemoglobin 30.4, Mean Corpuscular Hemoglobin Concent 31.3 L, Red Cell Distribution Width 14.2, Calcium Level 9.2 Microbiology Microbiology 12/22/18 Blood Culture, Received Pending 12/22/18 Blood Culture - Preliminary, Resulted No growth after 24 hours . All specim... 12/22/18 Urine Culture, Received Pending BONG CARNES MD Dec 23, 2018 14:58
[2018-12-23 17:30] VITALS: BP 162/48
[2018-12-23] MEDS: ACETAMINOPHEN TAB 650MG DOSE (2X325MG) PO PRN (18:55)
[2018-12-23] MEDS: SIMVASTATIN 20 MG TAB PO SCH (21:56)
[2018-12-24] VITALS (8 sets, daily range): BP systolic 111–159; BP diastolic 50–88
[2018-12-24] MEDS: LEVOTHYROXINE 150MCG TABLET (0.15MG) PO SCH (05:54)
[2018-12-24] MEDS: LEVOTHYROXINE 25MCG TABLET (0.025MG) PO SCH (05:54)
[2018-12-24] MEDS: ACETAMINOPHEN TAB 650MG DOSE (2X325MG) PO PRN ×2 (05:56→20:09)
[2018-12-24] MEDS ORDERED: LevoFLOXacin 750 MG TABLET PO SCH (06:00)
[2018-12-24 06:14] LABS: HEMOGLOBIN 10.3 g/dl (13.5-17.5); MEAN CORPUSCULAR HEMOGLOBIN 31.9 pg (27.0-33.0); MEAN CORPUSCULAR HGB CONC 32.2 g/dl (32.0-36.5); MEAN CORPUSCULAR VOLUME 99.1 fl (80.0-96.0); PLATELET COUNT, AUTOMATED 150 10^3/uL (150-450); RED BLOOD COUNT 3.23 10^6/uL (4.30-6.10)
--- NOTE | 2018-12-24 06:41 | ECHO ---
DATE OF PROCEDURE: 12/23/2018 DATE OF : 1940 AGE: 78 HEIGHT: 69 inches WEIGHT: 297 pounds BODY SURFACE AREA: 2.44 meters squared INPATIENT: 4 [place] - Room 4204 REFERRING PHYSICIAN: Dr. Chung Rankin INDICATION: Syncope. MEASUREMENTS 2-D Measurements: RV: 4.8 cm LV: 5.3 cm Septum: 1.3 cm Posterior wall: 1.3 cm Aortic root: 3.8 cm LA: 5.2 cm LVEF: 50% Doppler Measurements: AV: 1.6 m/s LVOT: 1.2 m/s LVOT diameter: 2.3 cm MV - E 140 Early mitral deceleration time: 254 ms E/E prime ratio: 17.5 PCWP: 23 mmHg PV: 1.0 m/s Pulmonary artery acceleration time: 90 ms RVSP: 45-49 mmHg IVC: 3.2 cm COMMENTS: Underlying atrial fibrillation with controlled ventricular response. Technically challenging study in light of the patient's body habitus, but diagnostically useful information was still obtained. M-mode and two-dimensional echocardiography was performed with pulsed, continuous wave, color flow and tissue Doppler studies. Mild concentric left ventricle hypertrophy with somewhat sluggish septal wall motion, but other brambila appeared to move normally. Prominently dilated left atrium with current estimated mean left atrial pressure significantly elevated. Moderately dilated right heart chambers with slight right ventricular free wall hypokinesis and Doppler evidence of at least moderate pulmonary hypertension. Prominently dilated IVC with reduced respiratory collapse in keeping with an elevated central venous pressure/right heart failure. Moderate aortic valvular sclerosis without functional abnormality. Moderate mitral annular calcification without functional valvular abnormality. Slightly dilated aortic root. No apparent intracardiac mass or pericardial effusion. MTDD
[2018-12-24 06:42] LABS: CALCIUM LEVEL 8.8 MG/DL (8.8-10.2); CREATININE FOR GFR 2.86 MG/DL (0.70-1.30); GLOMERULAR FILTRATION RATE 22.8 (>35); POTASSIUM SERUM 4.5 MEQ/L (3.5-5.1)
[2018-12-24] MEDS: TAMSULOSIN 0.4 MG CAP PO SCH (08:24)
[2018-12-24] MEDS: FINASTERIDE 5 MG TAB PO SCH (08:24)
[2018-12-24] MEDS: ASPIRIN 81 MG ENTERIC TAB PO SCH (08:24)
[2018-12-24] MEDS: HEPARIN SOD (PORCINE) 5000 UNITS/ML VIAL SC SCH ×2 (08:24→20:09)
[2018-12-24] MEDS: VITAMIN D 1,000 INTERNATIONAL UNITS TABLET PO SCH (08:24)
[2018-12-24] MEDS: CYANOCOBALAMIN 500 MCG TAB PO SCH (08:24)
[2018-12-24] MEDS: FERROUS SULFATE 325MG TAB PO SCH (08:24)
--- NOTE | 2018-12-24 10:40 | IPNPDOC ---
Subjective Date Seen The patient was seen on 12/24/18. Subjective Chief Complaint/HPI Patient seen and examined at the bedside. Reports that he has developed dysuria last night. States that he was having some burning on urination. Denies any fevers or chills. Objective Physical Examination General Exam: Positive: Alert, Cooperative, No Acute Distress, Other (morbidly obese appearing) ENT Exam: Positive: Atraumatic, Mucous membr. moist/pink Chest Exam: Positive: Clear to auscultation, Normal air movement Heart Exam: Positive: Rate Normal, Irregular Rhythm, Normal S1, Normal S2 Telemetry: Positive: Atrial fibrillation Abdomen Exam: Positive: Soft; Negative: Tenderness Extremity Exam: Negative: Tenderness Skin Exam: Positive: Other skin issue (macular rash noted on the cheeks of the face 2/2 rosacea) Psych Exam: Positive: Oriented x 3 Assessment /Plan Plan/VTE VTE Prophylaxis Ordered?: Yes Plan Urinary Tract Infection Patient endorsing that he had burning upon urination yesterday evening, UA suggestive of UTI. Urine culture pending Patient has remained afebrile with a normal WBC here s/p recent Urologic intervention as noted below We will start the patient on renally dosed by mouth Levaquin based on previous urine culture susceptibilities Near Syncopal Episode CT Head with no acute findings Patient hypotensive, possibly 2/2 overdiuresis given high dose of diuretics at home/UTI B/P responsive to IVF Hydration Orthostatic blood pressure has been negative following IVF here Monitor on telemetry Physical therapy on board for functional optimization Elevation in Serum Cr in a patient with CKD Stage IV, improved Serum Cr 3.2-->3.45-->2.86 this AM (Baseline 2.2-2.8)---Possibly secondary to UTI/overdiuresis Hold Nephrotoxins Renally dose medications s/p IV fluid hydration ordered Renal ultrasound with no acute findings noted We will continue to monitor the patient's renal function History of systolic congestive heart failure Repeat 2-D echocardiogram revealed an improvement of left ventricular ejection fraction from 35% to 50% compared to 2D ECHO from 04/2013 2-D echo also notable for moderately severe pulmonary hypertension, elevated central venous pressure/right heart failure The patient does not appear to be in a decompensated state at this time. We will continue to hold diuretics for 1 more day. History of atrial fibrillation Not on anticoagulation, continue aspirin Metoprolol on hold 2/2 Hypotension on arrival Hx of Left Sided Hydronephrosis s/p Ureteral Stent s/p cystoscopy, left retrograde pyelogram, left ureteroscopy, left ureteral balloon dilation, and left usual stent placement on 11/21/[address] Garrett of urology Follow-up as an outpatient. 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 VS, I&O, 24H, Fishbone Vital Signs/I&O Vital Signs Date Time Temp Pulse Resp B/P (MAP) Pulse Ox O2 Delivery O2 Flow Rate FiO2 12/24/18 10:00 97.1 78 17 134/78 (96) 99 12/22/18 17:31 Room Air I&O- Last 24 Hours up to 6 AM 12/24/18 06:00 Intake Total 2710 ml Output Total 2600 ml Balance 110 ml Laboratory Data 24H LABS Laboratory Tests 2 12/23/18 15:30: Urine Random Creatinine 99.1 12/24/18 05:27: Nucleated Red Blood Cells % (auto) 0.0, Anion Gap 6L, Glomerular Filtration Rate 22.8L, Blood Urea Nitrogen 83H, Creatinine 2.86H, Sodium Level 137, Potassium Level 4.5, Chloride Level 102, Carbon Dioxide Level 29, Calcium Level 8.8, Magnesium Level 3.0H, RM-Dsd-W-Type Natriuretic Peptide 2127H CBC/BMP Laboratory Tests 12/24/18 05:27 Red Blood Count 3.23 L, Mean Corpuscular Volume 99.1 H, Mean Corpuscular Hemoglobin 31.9, Mean Corpuscular Hemoglobin Concent 32.2, Red Cell Distribution Width 14.4, Calcium Level 8.8 Microbiology Microbiology 12/22/18 Blood Culture - Preliminary, Resulted No growth after 24 hours . All specim... 12/22/18 Blood Culture - Preliminary, Resulted No growth after 24 hours . All specim... 12/22/18 Urine Culture, Received Pending BONG CARNES MD Dec 24, 2018 10:40
[2018-12-24] MEDS: SIMVASTATIN 20 MG TAB PO SCH (20:09)
[2018-12-25 02:00] VITALS: BP 127/73
[2018-12-25] MEDS: ACETAMINOPHEN TAB 650MG DOSE (2X325MG) PO PRN (04:02)
[2018-12-25] MEDS: LEVOTHYROXINE 150MCG TABLET (0.15MG) PO SCH (05:47)
[2018-12-25] MEDS: LEVOTHYROXINE 25MCG TABLET (0.025MG) PO SCH (05:47)
[2018-12-25 06:00] VITALS: BP_SYST 126; BP_SYST 129; BP_DIAS 56; BP_DIAS 77
[2018-12-25 06:28] LABS: HEMATOCRIT 29.6 % (42.0-52.0); HEMOGLOBIN 9.4 g/dl (13.5-17.5); MEAN CORPUSCULAR HEMOGLOBIN 30.9 pg (27.0-33.0); MEAN CORPUSCULAR HGB CONC 31.8 g/dl (32.0-36.5); MEAN CORPUSCULAR VOLUME 97.4 fl (80.0-96.0); PLATELET COUNT, AUTOMATED 136 10^3/uL (150-450); RED BLOOD COUNT 3.04 10^6/uL (4.30-6.10); WHITE BLOOD COUNT 5.4 10^3/uL (4.0-10.0)
[2018-12-25 06:54] LABS: CALCIUM LEVEL 9.1 MG/DL (8.8-10.2); CREATININE FOR GFR 2.71 MG/DL (0.70-1.30); GLOMERULAR FILTRATION RATE 24.2 (>35); MAGNESIUM LEVEL 2.9 MG/DL (1.8-2.4); POTASSIUM SERUM 4.3 MEQ/L (3.5-5.1)
[2018-12-25] MEDS: FINASTERIDE 5 MG TAB PO SCH (08:26)
[2018-12-25] MEDS: VITAMIN D 1,000 INTERNATIONAL UNITS TABLET PO SCH (08:26)
[2018-12-25] MEDS: ASPIRIN 81 MG ENTERIC TAB PO SCH (08:26)
[2018-12-25] MEDS: TAMSULOSIN 0.4 MG CAP PO SCH (08:26)
[2018-12-25] MEDS: HEPARIN SOD (PORCINE) 5000 UNITS/ML VIAL SC SCH (08:26)
[2018-12-25] MEDS: FERROUS SULFATE 325MG TAB PO SCH (08:26)
[2018-12-25] MEDS: CYANOCOBALAMIN 500 MCG TAB PO SCH (08:27)
[2018-12-25 10:00] VITALS: BP 132/62
[2018-12-25] MEDS ORDERED: LEVA750T7 PO (14:19)
--- NOTE | 2018-12-30 06:31 | DS.PDOC ---
Discharge Summary General Date of Admission Dec 22, 2018 at 15:07 Discharge Summary PROCEDURES PERFORMED DURING STAY: [None]. ADMITTING DIAGNOSES: 1. . DISCHARGE DIAGNOSES: 1. . COMPLICATIONS/CHIEF COMPLAINT: Near Syncope. HISTORY OF PRESENT ILLNESS: . HOSPITAL COURSE: . DISCHARGE MEDICATIONS: Please see below. ALLERGIES: Please see below. PHYSICAL EXAMINATION ON DISCHARGE: VITAL SIGNS: Please see below. GENERAL: HEENT: NECK: CARDIOVASCULAR EXAMINATION: RESPIRATORY EXAMINATION: ABDOMINAL EXAMINATION: EXTREMITIES: SKIN: NEUROLOGICAL EXAMINATION: PSYCHIATRIC EXAMINATION: LABORATORY DATA: Please see below. IMAGING: PROGNOSIS: ACTIVITY: [As tolerated]. DIET: DISCHARGE PLAN: DISPOSITION: Home, Self-Care. DISCHARGE INSTRUCTIONS: 1. . ITEMS TO FOLLOWUP ON ON OUTPATIENT: 1. . DISCHARGE CONDITION: [Stable]. TIME SPENT ON DISCHARGE: Greater than minutes. Vital Signs/I&Os Vital Signs Date Time Temp Pulse Resp B/P (MAP) Pulse Ox O2 Delivery O2 Flow Rate FiO2 12/25/18 10:00 97.4 80 18 132/62 (85) 99 Microbiology Microbiology 12/22/18 Blood Culture - Final, Complete NO GROWTH AFTER 5 DAYS 12/22/18 Blood Culture - Final, Complete NO GROWTH AFTER 5 DAYS 12/22/18 Urine Culture - Final, Complete Klebsiella Pneumoniae Discharge Medications Scheduled Allopurinol (Zyloprim) 300 Mg Tab, 300 MG PO DAILY, (Reported) Aspirin (Aspir 81) 81 Mg Tab, 81 MG PO DAILY, (Reported) Calcium Carbonate (Calcium) 600 Mg Tablet, 600 MG PO DAILY, (Reported) Cholecalciferol (Vitamin D3) (Vitamin D3) 1,000 Unit Capsule, 1,000 UNIT PO DAILY, (Reported) Cyanocobalamin (Vitamin B-12) (Vitamin B-12) 1,000 Mcg Tab, 1,000 MCG PO DAILY, (Reported) Ferrous Sulfate (Ferrous Sulfate) 325 Mg Tab, 325 MG PO DAILY, (Reported) Finasteride (Finasteride) 5 Mg Tablet, 5 MG PO DAILY, (Reported) Levofloxacin (Levaquin) 750 Mg Tablet, 750 MG PO Q48H for UTI Klebsiela Pneu. Levothyroxine Sodium (Levothyroxine Sodium) 175 Mcg Tab, 175 MCG PO DAILY, (Reported) Lovastatin (Lovastatin) 20 Mg Tablet, 20 MG PO QHS, (Reported) Metolazone (Metolazone) 2.5 Mg Tab, 2.5 MG PO DAILY, (Reported) Metoprolol Succinate (Metoprolol Succinate) 50 Mg Tab, 50 MG PO DAILY, (Reported) Potassium Chloride (Klor-Con M20) 20 Meq Tabcr, 20 MEQ PO DAILY, (Reported) Tamsulosin HCl (Flomax) 0.4 Mg Capsule, 0.4 MG PO DAILY, (Reported) Torsemide (Torsemide) 100 Mg Tablet, 100 MG PO DAILY, (Reported) Vit A/Vit C/Vit E/Zinc/Copper (Icaps Areds Formula Dr Tablet) 1 Each Tablet.dr, 1 TAB PO DAILY, (Reported) Allergies Coded Allergies: Oyster (Verified Allergy, Severe, HIVES, 12/22/18) SHABBIR FLORENTINO MD Dec 30, 2018 06:31
== END 2018-12-25 15:27 | disposition home or self-care (01) ==
LOC: M ED 12:43 → M ED INP 15:07 → M MSPAV 18:00
PROVIDERS: ADMIT Internal Medicine; ATTEND Hospitalist
DX: R55 Syncope and collapse (principal); N39.0 Urinary tract infection, site not specified; I48.91 Unspecified atrial fibrillation; I11.9 Hypertensive heart disease without heart failure; I50.20 Unspecified systolic (congestive) heart failure; E11.9 Type 2 diabetes mellitus without complications; E03.9 Hypothyroidism, unspecified; M10.9 Gout, unspecified; Z79.82 Long term (current) use of aspirin; Z79.899 Other long term (current) drug therapy; E66.01 Morbid (severe) obesity due to excess calories; Z85.46 Personal history of malignant neoplasm of prostate; Z92.3 Personal history of irradiation
CPT/HCPCS: 36415; 70450; 71046; 76775; 80048; 80076; 81001; 82550; 82553; 82570; 83550; 83605; 83735; 83880; 84443; 84484; 85025; 85027; 85610; 85730; 86850; 86900; 86901; 87040; 87088; 87186; 93005; 93041; 93306; 94760; 96372; 96374; 97161; 99285; G0378

== ENCOUNTER → 2019-01-02 | Outpatient (REF) | payer MEDICARE ==
[~2019-01-02] MED LIST changes: +CALCTAB7 PO; +FINA5TAB2 PO; +LEVA750T7 PO
== END ==
LOC: M SFHCLERA 11:06
PROVIDERS: ATTEND Family Medicine
DX: E78.5 Hyperlipidemia, unspecified (principal); E11.59 Type 2 diabetes mellitus with other circulatory complications; N18.4 Chronic kidney disease, stage 4 (severe); E03.9 Hypothyroidism, unspecified; Z53.8 Procedure and treatment not carried out for other reasons

== ENCOUNTER → 2019-01-07 | Outpatient (REF) | payer MEDICARE ==
[2019-01-07 12:58] LABS: CALCIUM LEVEL 9.3 MG/DL (8.8-10.2); CHOLESTEROL RISK RATIO 3.476 (<5); CREATININE FOR GFR 2.3 MG/DL (0.70-1.30); GLOMERULAR FILTRATION RATE 29.3 (>35); POTASSIUM SERUM 4.1 MEQ/L (3.5-5.1); THYROID STIMULATING HORMONE 0.598 uIU/ML (0.358-3.740)
[2019-01-07 13:22] LABS: HEMOGLOBIN A1c 6.8 %
== END ==
LOC: M SFHCLERA 09:25
PROVIDERS: ATTEND Family Medicine
DX: E78.5 Hyperlipidemia, unspecified (principal); E11.59 Type 2 diabetes mellitus with other circulatory complications; N18.4 Chronic kidney disease, stage 4 (severe); E03.9 Hypothyroidism, unspecified; N39.0 Urinary tract infection, site not specified

== ENCOUNTER → 2019-02-17 | Outpatient (REF) | payer MEDICARE ==
[2019-02-17 17:06] LABS: CALCIUM LEVEL 9.2 MG/DL (8.8-10.2); CREATININE FOR GFR 2.19 MG/DL (0.70-1.30); POTASSIUM SERUM 4.3 MEQ/L (3.5-5.1)
== END ==
LOC: M SFHCLERA 11:11
PROVIDERS: ATTEND Family Medicine
DX: N18.4 Chronic kidney disease, stage 4 (severe) (principal)
CPT/HCPCS: 80048; G0463

== ENCOUNTER → 2019-04-21 | Outpatient (REF) | payer MEDICARE | LOC: M SFHCLERA 11:11 | PROVIDERS: ATTEND Family Medicine | DX: N18.4 Chronic kidney disease, stage 4 (severe) (principal); D50.8 Other iron deficiency anemias; Z53.8 Procedure and treatment not carried out for other reasons ==

== ENCOUNTER → 2019-07-04 | Outpatient (REF) | payer MEDICARE ==
[2019-07-04 16:24] LABS: CALCIUM LEVEL 9.7 MG/DL (8.8-10.2); CHOLESTEROL RISK RATIO 3.914 (<5); CREATININE FOR GFR 3.39 MG/DL (0.70-1.30); GLOMERULAR FILTRATION RATE 18.7 (>35); POTASSIUM SERUM 3.6 MEQ/L (3.5-5.1)
== END ==
LOC: M SFHCLERA 10:37
PROVIDERS: ATTEND Family Medicine
DX: E11.59 Type 2 diabetes mellitus with other circulatory complications (principal)

== ENCOUNTER → 2019-08-08 | Outpatient (CLI) | payer MEDICARE ==
--- NOTE | 2019-08-08 18:18 | REP ---
Bilateral lower extremity arterial Doppler ultrasound: History: Leg pain and skin discoloration. Diabetes. Findings: Irregular cardiac rhythm was noted incidentally. Ankle brachial indices could not be obtained on either side due to noncompressible vessels. Moderate plaquing is seen throughout the lower extremities. No high-grade stenosis is appreciated. Triphasic and biphasic waveforms are noted bilaterally throughout the lower extremities. Right lower extremity arterial Doppler velocity chart: CF A 101 cm/S Profunda 71 Proximal SFA 84 Mid SFA 121 Distal SFA 83 Popliteal 53 Proximal AT A 42 Tibioperoneal trunk 31 Proximal LEGAL SECRETARY 46 Distal LEGAL SECRETARY 35 Distal AT A 46 Left lower extremity arterial Doppler velocity chart: CF A 84 cm/S Profunda 85 Proximal SFA 90 Mid SFA 98 Distal SFA 57 Popliteal 71 Proximal AT A 37 Tibioperoneal trunk 36 Proximal LEGAL SECRETARY 41 Distal LEGAL SECRETARY 14 Distal AT A 30 a Electronically Signed by Diego Domínguez MD 08/08/2019 06:09 P
== END ==
LOC: M RAD 12:51
PROVIDERS: ATTEND Physician Assistant
DX: I73.9 Peripheral vascular disease, unspecified (principal)

== ENCOUNTER → 2019-08-14 | Outpatient (CLI) | payer MEDICARE | LOC: M PLALAB 13:52 | PROVIDERS: ATTEND Nurse Practitioner Women's Health | DX: Z85.46 Personal history of malignant neoplasm of prostate (principal) | CPT/HCPCS: 36415; 84153; G0463 ==

== ENCOUNTER → 2019-08-20 | Outpatient (REF) | payer MEDICARE | LOC: M LAB REF 17:02 | PROVIDERS: ATTEND Internal Medicine Nephrology | DX: N39.0 Urinary tract infection, site not specified (principal) ==

== ENCOUNTER → 2019-08-27 | Outpatient (CLI) | payer MEDICARE ==
--- NOTE | 2019-08-28 08:08 | REP ---
Bilateral upper extremity arterial and venous Doppler ultrasound: History: Vein mapping study. Chronic kidney disease stage IV. Chronic systolic congestive heart failure. Findings: There is no evidence of venous thrombosis in either upper extremity. Mild arterial plaquing is observed. Right upper extremity vein diameter chart: Upper humerus 6.6 mm, cephalic 6.5 mm Lower humerus basilic 6.9 mm, cephalic 6.2 mm Upper forearm basilic 4.8 mm, cephalic 5.3 mm Lower forearm basilic 1.9 mm, cephalic 4.6 mm Median cubital 4.0 mm Left upper extremity vein diameter chart: Upper humerus basilic 6.1 mm, cephalic 6.6 mm Lower humerus basilic 7.1 mm, cephalic 6.3 mm Upper forearm basilic 2.6 mm, cephalic 5.3 mm Lower forearm basilic 1.7 mm, cephalic 3.3 mm Median cubital 5.2 mm Right upper extremity arterial Doppler velocity and size diameter chart: Axillary artery 54 cm/S, 11.3 mm Brachial artery 112 cm/S, 7.8 mm Radial artery 85 cm/S, 2.7 mm Ulnar artery 101 cm/S, 3.1 mm Left upper extremity arterial Doppler velocity and size diameter chart: Axillary artery 51 cm/S, 9.8 mm Brachial artery 61 cm/S, 6.5 mm Radial artery 57 cm/S, 2.8 mm Ulnar artery 47 cm/S, 2.4 mm Electronically Signed by Diego Domínguez MD 08/28/2019 07:59 A
== END ==
LOC: M RAD 12:21
PROVIDERS: ATTEND Internal Medicine Nephrology
DX: I70.203 Unspecified atherosclerosis of native arteries of extremities, bilateral legs (principal); N18.4 Chronic kidney disease, stage 4 (severe); I50.22 Chronic systolic (congestive) heart failure; R60.0 Localized edema

== ENCOUNTER → 2020-03-22 | Outpatient (REF) | payer MEDICARE ==
[~2020-03-22] MED LIST changes: +ASPI1TAB8 PO; -ASPI81TA85 PO; +ASPI81TA86 PO; +CALC-211 PO; -CALCTAB7 PO; +DITR1TAB PO; +GLIP2.5T6 PO; -LISI-1046 PO; +LISI2.5T2 PO; +POTA20TA6 PO
[2020-03-22 18:59] LABS: BASO % 0.4 % (0.0-1.0); EOS # 1.7 10^3/uL (0.0-0.5); HEMATOCRIT 30.4 % (42.0-52.0); HEMOGLOBIN 9.4 g/dl (13.5-17.5); LYMPH # 0.6 10^3/uL (1.5-5.0); LYMPH % 8.5 % (24.0-44.0); MEAN CORPUSCULAR HGB CONC 30.9 g/dl (32.0-36.5); MEAN CORPUSCULAR VOLUME 103.4 fl (80.0-96.0); MONO # 0.7 10^3/uL (0.0-0.8); MONO % 9.6 % (0.0-5.0); NEUTROPHILS # 3.8 10^3/uL (1.5-8.5); NEUTROPHILS % 55.4 % (36.0-66.0); PLATELET COUNT, AUTOMATED 117 10^3/uL (150-450); RED BLOOD COUNT 2.94 10^6/uL (4.30-6.10); WHITE BLOOD COUNT 6.8 10^3/uL (4.0-10.0)
[2020-03-22 19:02] LABS: CALCIUM LEVEL 8.8 MG/DL (8.8-10.2); CHOLESTEROL RISK RATIO 4.216 (<5); CREATININE FOR GFR 2.91 MG/DL (0.70-1.30); GLOMERULAR FILTRATION RATE 22.3 (>35); POTASSIUM SERUM 4.1 MEQ/L (3.5-5.1); THYROID STIMULATING HORMONE 7.54 uIU/ML (0.358-3.740)
[2020-03-22 19:03] LABS: EOS % 25.5 % (0.0-3.0)
[2020-03-22 19:17] LABS: HEMOGLOBIN A1c 6.2 %
== END ==
LOC: M LABDRAWC 11:35
PROVIDERS: ATTEND Family Medicine
DX: E03.9 Hypothyroidism, unspecified (principal); E11.9 Type 2 diabetes mellitus without complications; N18.4 Chronic kidney disease, stage 4 (severe)

== ENCOUNTER → 2020-05-28 | Outpatient (CLI) | payer MEDICARE ==
--- NOTE | 2020-05-28 11:39 | REP ---
INDICATION: SOB COMPARISON: 12/22/2018. TECHNIQUE: PA/Lateral FINDINGS: Lungs: There is vascular congestion with diffuse interstitial edema. No consolidating infiltrate is seen. Heart: Heart is [id number] enlarged. Mediastinum: There is mild calcification and tortuosity of the thoracic aorta. Mediastinal silhouette is unchanged. Pleural angles: Slight blunting of the costophrenic angles may indicate very small effusions.. Bones and soft tissues: There are degenerative changes of the spine without compression deformity. IMPRESSION: Cardiomegaly with vascular congestion and diffuse interstitial edema. Possible tiny effusions. Findings are most consistent with CHF and interstitial edema. <Electronically signed by Mateo Torres > 05/28/20 [id number]
[2020-05-28 13:06] LABS: BASO % 0.5 % (0.0-1.0); EOS # 0.3 10^3/uL (0.0-0.5); EOS % 6.2 % (0.0-3.0); HEMATOCRIT 25.3 % (42.0-52.0); HEMOGLOBIN 7.2 g/dl (13.5-17.5); LYMPH # 0.3 10^3/uL (1.5-5.0); LYMPH % 7.1 % (24.0-44.0); MEAN CORPUSCULAR HEMOGLOBIN 29.6 pg (27.0-33.0); MEAN CORPUSCULAR HGB CONC 28.5 g/dl (32.0-36.5); MEAN CORPUSCULAR VOLUME 104.1 fl (80.0-96.0); MONO # 0.4 10^3/uL (0.0-0.8); MONO % 9.8 % (0.0-5.0); NEUTROPHILS # 3.3 10^3/uL (1.5-8.5); NEUTROPHILS % 75.7 % (36.0-66.0); PLATELET COUNT, AUTOMATED 125 10^3/uL (150-450); RED BLOOD COUNT 2.43 10^6/uL (4.30-6.10); WHITE BLOOD COUNT 4.4 10^3/uL (4.0-10.0)
[2020-05-28 13:40] LABS: CALCIUM LEVEL 8.7 MG/DL (8.8-10.2); CREATININE FOR GFR 3.28 MG/DL (0.70-1.30); GLOMERULAR FILTRATION RATE 19.4 (>35); POTASSIUM SERUM 3.8 MEQ/L (3.5-5.1)
[2020-05-28 13:41] LABS: BILIRUBIN,TOTAL 0.4 MG/DL (0.2-1.0); THYROID STIMULATING HORMONE 1.94 uIU/ML (0.358-3.740); TOTAL PROTEIN 7.9 GM/DL (6.4-8.2)
== END ==
LOC: M WUC 11:09
PROVIDERS: ATTEND Family Medicine
DX: R06.02 Shortness of breath (principal); E03.9 Hypothyroidism, unspecified; I51.7 Cardiomegaly; J81.1 Chronic pulmonary edema

== ENCOUNTER 2020-06-01 14:07 | Inpatient (IN) | payer MEDICARE ==
[~2020-06-01] VITALS: Ht 172.7 cm; Wt 98.5 kg
[~2020-06-01 14:07] MED LIST changes: -ASPI1TAB8 PO; -POTA20TA6 PO
[2020-06-01] MEDS ORDERED: ASPI1TAB8 PO (16:07)
[2020-06-01] MEDS ORDERED: POTA20TA6 PO (16:07)
[2020-06-01 16:09] LABS: BASO % 0.2 % (0.0-1.0); EOS # 0.4 10^3/uL (0.0-0.5); EOS % 7.2 % (0.0-3.0); HEMATOCRIT 25.2 % (42.0-52.0); HEMOGLOBIN 7.3 g/dl (13.5-17.5); LYMPH # 0.3 10^3/uL (1.5-5.0); LYMPH % 6.6 % (24.0-44.0); MEAN CORPUSCULAR HEMOGLOBIN 29.9 pg (27.0-33.0); MEAN CORPUSCULAR VOLUME 103.3 fl (80.0-96.0); MONO # 0.4 10^3/uL (0.0-0.8); NEUTROPHILS # 3.7 10^3/uL (1.5-8.5); NEUTROPHILS % 76.6 % (36.0-66.0); PLATELET COUNT, AUTOMATED 119 10^3/uL (150-450); RED BLOOD COUNT 2.44 10^6/uL (4.30-6.10); WHITE BLOOD COUNT 4.9 10^3/uL (4.0-10.0)
--- NOTE | 2020-06-01 16:30 | REP ---
INDICATION: sob. COMPARISON: 05/28/2020, 12/22/2018. TECHNIQUE: AP portable upright FINDINGS: Lungs are well inflated. There is cardiomegaly with left atrial and left ventricular enlargement. The aorta is calcified at the arch and unchanged airway midline. Some venous hypertension is again seen. There is increasing basilar atelectasis or infiltrate on the right compared to the previous study. Some linear fibrotic or atelectatic changes adjacent the left heart border in the mid chest. Degenerative changes in the spine noted. Small effusions difficult to exclude. IMPRESSION: : 1. Cardiomegaly with left atrial ventricular enlargement and some vascular redistribution. Some underlying fibrosis makes early interstitial edema difficult to exclude. 2. Increasing patchy infiltrate atelectasis right base above the diaphragm. Small effusions difficult to exclude. No significant improvement in the vascular congestion compared to the previous study. <Electronically signed by Elvis Youngblood > 06/01/20 [id number]
[2020-06-01 16:43] LABS: ALT/SGPT 16 U/L (12-78); BILIRUBIN,DIRECT 0.1 MG/DL (0.0-0.2); BILIRUBIN,TOTAL 0.3 MG/DL (0.2-1.0); BLOOD UREA NITROGEN 98 MG/DL (7-18); CALCIUM LEVEL 9.5 MG/DL (8.8-10.2); CARBON DIOXIDE LEVEL 30 MEQ/L (21-32); CHLORIDE LEVEL 104 MEQ/L (98-107); CK-MB VALUE MASS < 1.0 NG/ML (<3.6); CPK CREATINE PHOSPHOKINASE 50 U/L (39-308); CREATININE FOR GFR 3.34 MG/DL (0.70-1.30); GLUCOSE, FASTING 123 MG/DL (70-100); MAGNESIUM LEVEL 2.9 MG/DL (1.8-2.4); NT-PRO BNP 3209 PG/ML (<450); POTASSIUM SERUM 4.1 MEQ/L (3.5-5.1); SODIUM LEVEL 141 MEQ/L (136-145); TOTAL PROTEIN 7.9 GM/DL (6.4-8.2); TROPONIN I 0.02 NG/ML (< 0.10)
[2020-06-01 18:00] VITALS: BP 166/88
[2020-06-01 18:15] VITALS: BP 165/79
[2020-06-01] MEDS ORDERED: FUROSEMIDE 100MG/10ML VIAL (J1940) IV ONE ×2 (18:45→22:00)
[2020-06-01 18:50] LABS: FERRITIN 108 NG/ML (26-388); IRON (FE) 36 UG/DL (65-175); TOTAL IRON BINDING CAPACITY 359 UG/DL (250-450)
[2020-06-01 18:58] LABS: VITAMIN B12 LEVEL 510 PG/ML (247-911)
[2020-06-01 19:15] VITALS: BP 125/89
--- NOTE | 2020-06-01 19:37 | HPEPDOC ---
General Date of Admission Jun 01, 2020 at 18:25 Date of Service: Jun 01, 2020 Chief Complaint The patient is a 79-year-old male admitted with a reason for visit of Symptomatic Anemia. History of Present Illness 79 year old morbidly obese gentleman with PMH of CKD stage 3 to 4 with baseline creatinine of 2.8, systolic chf, lymphedema, hypothyroidism, hypertension, hld, dm presented to the ED for abnormal labs. He had gone to see PMD for worsening SOB for 1 month which really got worse for the past 1 week so that he could hardly make it to the bathroom. Lab work with PMD showed a Hb of 7.2 so was called and instructed to come to the ED. Patient's last Hb in february was 9.4 and his hb with Dr Meng was 11.2 in December with a creatinine of 2.5 and GFR of 35. He was last seen at the nephrology office in December this year and has a follow up appointment later this month 06/11/20. He does report some weight gain but does not know how much as he does not measure himself. He denies any cough or phlegm. Denies any overt bleeding from anywhere. No h/o love or hematochezia. No abdominal pain nausea or vomiting or diarrhea. He is unable to lay down in bed and needs several pillows. Hb in the ED was 7.2 again and he was admitted for symptomatic anemia. He was also in Afib with rate about 90 to 110. Home Medications Scheduled Allopurinol (Zyloprim) 300 Mg Tab, 300 MG PO DAILY, (Reported) Aspirin (Aspirin EC) 81 Mg Tablet.dr, 81 MG PO DAILY, (Reported) Glipizide (Glipizide ER) 2.5 Mg Tab.er.24, 2.5 MG PO DAILY, (Reported) Levothyroxine Sodium (Levothyroxine Sodium) 175 Mcg Tab, 175 MCG PO DAILY, (Reported) Metolazone (Metolazone) 2.5 Mg Tab, 2.5 MG PO QWEEK, (Reported) MONDAYS Metoprolol Succinate (Metoprolol Succinate) 50 Mg Tab, 50 MG PO DAILY, (Reported) Potassium Chloride (Potassium Chloride) 20 Meq Tab.er.prt, 20 MEQ PO DAILY, (Reported) Tamsulosin HCl (Flomax) 0.4 Mg Capsule, 0.4 MG PO QPM, (Reported) Torsemide (Torsemide) 100 Mg Tablet, 50 MG PO DAILY, (Reported) Vit A/Vit C/Vit E/Zinc/Copper (Icaps Areds Formula Dr Tablet) 1 Each Tablet., 1 TAB PO DAILY, (Reported) Allergies Coded Allergies: Oyster (Verified Allergy, Intermediate, HIVES, 06/01/20) Past Medical History Medical History Morbid obesity Hypertension. 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 Meng. NIDDM2. LUTS History of prostate cancer status post radiation about 10-15 years ago. Hyperlipidemia. Hypothyroidism. Chronic venous insufficiency and lymphedema, follows with Dr. Phipps. Gout. Kidney stones. History of radiation cystitis H/o Left ureteral stricture s/p dilatation Surgical History Bladder cauterization in 04/2013, cataracts 2014, right hemicolectomy 2016 with ileocolonic anastomosis for Cecal polyp with high- grade dysplasia. Kidney stone surgery with what sounds like ureteroscopy in 1972. CYSTOSCOPY WITH LEFT RETROGRADE PYLELOGRAM, LEFT [id number] CYSTOSCOPY WITH STENT REMOVAL 02/12/2019 Umbilical hernia, incarcerated repaired 2016 Family History Father had kidney cancer and heart disease. Mother had cancer, he is unsure which type, diabetes. 1 brother with Alzheimers. Social History * Smoker: former Smoker Alcohol: occationally Drugs: denies A-FIB/CHADSVASC A-FIB History Current/History of A-Fib/PAF?: Yes Current PO Anticoag Therapy: No Review of Systems Constitutional: Reports: Fatigue; Denies: Chills, Fever, Night Sweats Eyes: Denies: Pain, Vision change ENT: Denies: Head Aches, Ear Pain, Dysphagia Skin: Denies: Rash, Lesions, Breakdown Pulmonary: Reports: Dyspnea Cardiovascular: Reports: Orthopnea, Edema Gastrointestinal: Denies: Nausea, Vomiting, Abdominal Pain, Diarrhea Genitourinary: Reports: Frequency Hematologic: Reports: Bruising Musculoskeletal: Denies: Neck Pain, Back Pain, Joint Pain, Muscle Pain, Spasms Physical Examination General Exam: Positive: Alert, Cooperative, No Acute Distress Eye Exam: Positive: PERRLA, Conjunctiva & lids normal, EOMI; Negative: Sclera icteric ENT Exam: Positive: Atraumatic, Mucous membr. moist/pink, Pharynx Normal Neck Exam: Positive: Supple; Negative: JVD, thyromegaly Chest Exam: Positive: Rales (at both bases), Diminished Heart Exam: Positive: Tachycardic, Irregular Rhythm, Normal S1, Normal S2, Murmurs Telemetry: Positive: Atrial fibrillation Abdomen Exam: Positive: Normal bowel sounds, Soft; Negative: Tenderness, Hepatospenomegaly Extremity Exam: Positive: Edema, Normal pulses, Other (lymphedema); Negative: Clubbing, Cyanosis Vital Signs Vital Signs Date Time Temp Pulse Resp B/P (MAP) Pulse Ox O2 Delivery O2 Flow Rate FiO2 06/01/20 18:52 110 97 06/01/20 18:17 165/79 (107) 06/01/20 18:15 97.3 20 Room Air Laboratory Data Labs 24H Laboratory Tests 2 06/01/20 15:23: Immature Granulocyte % (Auto) 0.4, Neutrophils (%) (Auto) 76.6H, Lymphocytes (%) (Auto) 6.6L, Monocytes (%) (Auto) 9.0H, Eosinophils (%) (Auto) 7.2H, Basophils (%) (Auto) 0.2, Neutrophils # (Auto) 3.7, Lymphocytes # (Auto) 0.3L, Monocytes # (Auto) 0.4, Eosinophils # (Auto) 0.4, Basophils # (Auto) 0.0, Nucleated Red Blood Cells % (auto) 0.0, Anion Gap 7L, Glomerular Filtration Rate 19.0L, Calcium Level 9.5, Magnesium Level 2.9H, Iron Level 36L, Total Iron Binding Capacity 359, Transferrin % Saturation 10.0L, Ferritin 108, Total Bilirubin 0.3, Direct Bilirubin 0.1, Aspartate Amino Transf (AST/SGOT) 14, Alanine Aminotransferase (ALT/SGPT) 16, Alkaline Phosphatase 88, Total Creatine Kinase 50, Creatine Kinase MB < 1.0, Creatine Kinase MB Relative Index 2.00, Troponin I 0.02, BC-Cvf-R-Type Natriuretic Peptide 3209H, Total Protein 7.9, Albumin 3.0L, Albumin/Globulin Ratio 0.6, Vitamin B12 Level 510 06/01/20 18:07: CBC/BMP Laboratory Tests 06/01/20 15:23 Assessment/Plan 79 year old morbidly obese gentleman with PMH of CKD stage 3 to 4 with baseline creatinine of 2.8, systolic chf, lymphedema, hypothyroidism, hypertension, hld, dm presented to the ED for abnormal labs. He had gone to see PMD for worsening SOB for 1 month which really got worse for the past 1 week so that he could hardly make it to the bathroom. Lab work with PMD showed a Hb of 7.2 so was called and instructed to come to the ED. Patient's last Hb in february was 9.4 and his hb with Dr Meng was 11.2 in December with a creatinine of 2.5 and GFR of 35. He was last seen at the nephrology office in December this year and has a follow up appointment later this month 06/11/20. He does report some weight gain but does not know how much as he does not measure himself. He denies any cough or phlegm. Denies any overt bleeding from anywhere. No h/o love or hematochezia. No abdominal pain nausea or vomiting or diarrhea. He is unable to lay down in bed and needs several pillows. Hb in the ED was 7.2 again and he was admitted for symptomatic anemia. He was also in Afib with rate about 90 to 110. Symptomatic anemia will transfuse 2 units of prbc with lasix. check iron profile, spep, vit b12, folate, free light chain, stool for occult blood. hh q 8 hours May be having a slow GIB will need EGD and colonoscopy . If hh responds appropriately to prbc transfusion and vitals remain stable it will be scheduled as an outpatient. will give PPI and sucralfate. Chronic Afib continue metoprolol on asa will continue Not on anticoagulation because of h/o bleeding Denisa on CKD possibly due to fluid overload. will increase diuretics. nephrology consult. Systolic CHF with EF of 50% in 2019 will give lasix and continue metolazone Moderate to severe pulmonary hypertension with right heart failure lasix Hypertension metoprolol hypothyroid synthroid Gout allopurinol LUTS flomax Diabetes glipizide. Plan / VTE VTE Prophylaxis Ordered?: Yes MARIXA SCOTT MD Jun 01, 2020 19:37
--- NOTE | 2020-06-01 19:57 | ECGEPIP ---
[facility] - ED Test Date: 2020-06-01 Pat Name: REBECCA JAUREGUI Department: Room: - Gender: Male Quilt Maker: WALT : 1940 Requested By: SIMRAN BLACK Order Number: [id number] Reading MD: Vernon Vasquez Measurements Intervals [place] Rate: 99 P: DE: 0 QRS: -24 QRSD: 111 T: 93 QT: 344 QTc: 443 Interpretive Statements ATRIAL FIBRILLATION moderate ivcd LOW QRS VOLTAGE IN PRECORDIAL LEADS POSSIBLE ANTERIOR MYOCARDIAL INFARCTION, OF INDETERMINATE AGE Nonspecific ST-T wave abnormalities Similar to tracing done 08-31-18 Electronically Signed on 06-01-2020 19:57:08 EST by Vernon Vasquez
[2020-06-01 21:30] VITALS: BP 142/84
[2020-06-01] MEDS: HEPARIN SOD (PORCINE) 5000UNITS/ML 1ML VIAL/SYRINGE SC SCH (22:09)
[2020-06-01] MEDS: PANTOPRAZOLE 40MG VIAL (C9113 PER 1) IV SCH (22:10)
[2020-06-01] MEDS: TAMSULOSIN 0.4 MG CAP PO SCH (22:10)
[2020-06-01] MEDS: SENOKOT S TAB PO SCH (22:10)
[2020-06-01] MEDS: SUCRALFATE 1 GM TAB PO SCH (22:10)
[2020-06-01 22:42] VITALS: BP 120/70
[2020-06-01 22:57] VITALS: BP 124/80
[2020-06-02] VITALS (13 sets, daily range): BP systolic 118–148; BP diastolic 8–90
[2020-06-02] MEDS: LEVOTHYROXINE 100MCG TABLET (0.1MG) PO SCH (05:09)
[2020-06-02] MEDS: LEVOTHYROXINE 75MCG TABLET (0.075MG) PO SCH (05:09)
[2020-06-02 06:31] LABS: BASO % 0.4 % (0.0-1.0); EOS # 0.4 10^3/uL (0.0-0.5); EOS % 9.1 % (0.0-3.0); HEMATOCRIT 26.7 % (42.0-52.0); HEMOGLOBIN 7.9 g/dl (13.5-17.5); LYMPH # 0.3 10^3/uL (1.5-5.0); LYMPH % 6.8 % (24.0-44.0); MEAN CORPUSCULAR HEMOGLOBIN 29.5 pg (27.0-33.0); MEAN CORPUSCULAR HGB CONC 29.6 g/dl (32.0-36.5); MEAN CORPUSCULAR VOLUME 99.6 fl (80.0-96.0); MONO # 0.5 10^3/uL (0.0-0.8); MONO % 10.6 % (0.0-5.0); NEUTROPHILS # 3.4 10^3/uL (1.5-8.5); NEUTROPHILS % 72.5 % (36.0-66.0); PLATELET COUNT, AUTOMATED 109 10^3/uL (150-450); RED BLOOD COUNT 2.68 10^6/uL (4.30-6.10); WHITE BLOOD COUNT 4.7 10^3/uL (4.0-10.0)
[2020-06-02 06:45] LABS: CALCIUM LEVEL 9.2 MG/DL (8.8-10.2); CREATININE FOR GFR 3.2 MG/DL (0.70-1.30); GLOMERULAR FILTRATION RATE 19.9 (>35); POTASSIUM SERUM 3.7 MEQ/L (3.5-5.1)
[2020-06-02] MEDS: SUCRALFATE 1 GM TAB PO SCH ×4 (08:45→20:34)
[2020-06-02] MEDS: PANTOPRAZOLE 40MG VIAL (C9113 PER 1) IV SCH ×2 (08:45→20:33)
[2020-06-02] MEDS: HEPARIN SOD (PORCINE) 5000UNITS/ML 1ML VIAL/SYRINGE SC SCH ×2 (08:45→20:34)
[2020-06-02] MEDS: allopurinoL 300 MG TAB PO SCH (08:45)
[2020-06-02] MEDS: ASPIRIN 81 MG ENTERIC TAB PO SCH (08:46)
[2020-06-02] MEDS: SENOKOT S TAB PO SCH ×2 (08:46→20:34)
[2020-06-02] MEDS: glipiZIDE *2.5MG* 1/2 TABLET PO SCH (08:46)
[2020-06-02] MEDS: METOPROLOL SUCC (TopROL XL) 50MG **XL** TAB PO SCH (08:46)
[2020-06-02] MEDS ORDERED: metOLazone 2.5 MG TAB PO ONE (12:00)
[2020-06-02] MEDS ORDERED: POTASSIUM CHLORIDE 10 MEQ SR TABLET PO ONE (12:00)
--- NOTE | 2020-06-02 12:01 | IPNPDOC ---
Subjective Date Seen The patient was seen on 06/02/20. Subjective Chief Complaint/HPI Patient having very good urine output though cannot be measured at he is incontinent most of the times. Hb did not rise as much as expected will give another unit of PRBC. Denies any SOB but feels tired as he has been having urine output all night. At home he sleeps in bed with 4 pillows under his feet as they have been becoming more and more swollen. Had one bowel movement , no blood noted. Objective Physical Examination General Exam: Positive: Alert, Cooperative, No Acute Distress Eye Exam: Positive: PERRLA, Conjunctiva & lids normal, EOMI; Negative: Sclera icteric ENT Exam: Positive: Atraumatic, Mucous membr. moist/pink, Pharynx Normal Neck Exam: Positive: Supple; Negative: JVD, thyromegaly Chest Exam: Positive: Rales (at both bases), Diminished Heart Exam: Positive: Tachycardic, Irregular Rhythm, Normal S1, Normal S2, Murmurs Telemetry: Positive: Atrial fibrillation Abdomen Exam: Positive: Normal bowel sounds, Soft; Negative: Tenderness, Hepatospenomegaly Extremity Exam: Positive: Edema ($= bilateral extending up to the hips), Normal pulses, Other (lymphedema); Negative: Clubbing, Cyanosis Skin Exam: Positive: Other skin issue (Chronic bilateral venous stasis changes in both the legs.) Assessment /Plan Assessment 79 year old morbidly obese gentleman with PMH of CKD stage 3 to 4 with baseline creatinine of 2.8, systolic chf, lymphedema, hypothyroidism, hypertension, hld, dm presented to the ED for abnormal labs. He had gone to see PMD for worsening SOB for 1 month which really got worse for the past 1 week so that he could hard ly make it to the bathroom. Lab work with PMD showed a Hb of 7.2 so was called and instructed to come to the ED. Patient's last Hb in february was 9.4 and his hb with Dr Meng was 11.2 in December with a creatinine of 2.5 and GFR of 35. He was last seen at the nephrology office in December this year and has a follow up appointment later this month 06/11/20. He does report some weight gain but does not know how much as he does not measure himself. He denies any cough or phlegm. Denies any overt bleeding from anywhere. No h/o love or hematochezia. No abdominal pain nausea or vomiting or diarrhea. He is unable to lay down in bed and needs several pillows. Hb in the ED was 7.2 again and he was admitted for symptomatic anemia. He was also in Afib with rate about 90 to 110. Symptomatic anemia will transfuse 2 units of prbc with lasix. check iron profile, spep, vit b12, folate, free light chain, stool for occult blood. hh q 8 hours May be having a slow GIB will need EGD and colonoscopy . If hh did not go up as expected. will transfuse 1 more unit of prbc Dr Arzola consulted for possible GIB. will give PPI and sucralfate. Chronic Afib continue metoprolol on asa will continue Not on anticoagulation because of h/o bleeding Denisa on CKD due to fluid overload and CHF exacerbation. will increase diuretics. nephrology consult. Acute on chronic Systolic CHF with EF of 50% in 2019 Now with masive fluid overload. 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 Plan/VTE VTE Prophylaxis Ordered?: Yes VS, I&O, 24H, Fishbone Vital Signs/I&O Vital Signs Date Time Temp Pulse Resp B/P (MAP) Pulse Ox O2 Delivery O2 Flow Rate FiO2 06/02/20 11:08 97.2 94 20 143/90 98 Room Air I&O- Last 24 Hours up to 6 AM 06/02/20 06:00 Intake Total 2660 ml Output Total 350 ml Balance 2310 ml Laboratory Data 24H LABS Laboratory Tests 2 06/01/20 15:23: Immature Granulocyte % (Auto) 0.4, Neutrophils (%) (Auto) 76.6H, Lymphocytes (%) (Auto) 6.6L, Monocytes (%) (Auto) 9.0H, Eosinophils (%) (Auto) 7.2H, Basophils (%) (Auto) 0.2, Neutrophils # (Auto) 3.7, Lymphocytes # (Auto) 0.3L, Monocytes # (Auto) 0.4, Eosinophils # (Auto) 0.4, Basophils # (Auto) 0.0, Nucleated Red Blood Cells % (auto) 0.0, Anion Gap 7L, Glomerular Filtration Rate 19.0L, Calcium Level 9.5, Magnesium Level 2.9H, Iron Level 36L, Total Iron Binding Capacity 359, Transferrin % Saturation 10.0L, Ferritin 108, Total Bilirubin 0.3, Direct Bilirubin 0.1, Aspartate Amino Transf (AST/SGOT) 14, Alanine Aminotransferase (ALT/SGPT) 16, Alkaline Phosphatase 88, Total Creatine Kinase 50, Creatine Kinase MB < 1.0, Creatine Kinase MB Relative Index 2.00, Troponin I 0.02, LJ-Hwm-G-Type Natriuretic Peptide 3209H, Total Protein 7.9, Albumin 3.0L, Albumin/Globulin Ratio 0.6, Vitamin B12 Level 510 06/01/20 18:07: Coronavirus (COVID-19)(PCR) NEGATIVE 06/02/20 06:01: Immature Granulocyte % (Auto) 0.6, Neutrophils (%) (Auto) 72.5H, Lymphocytes (%) (Auto) 6.8L, Monocytes (%) (Auto) 10.6H, Eosinophils (%) (Auto) 9.1H, Basophils (%) (Auto) 0.4, Neutrophils # (Auto) 3.4, Lymphocytes # (Auto) 0.3L, Monocytes # (Auto) 0.5, Eosinophils # (Auto) 0.4, Basophils # (Auto) 0.0, Nucleated Red Blood Cells % (auto) 0.0, Anion Gap 7L, Glomerular Filtration Rate 19.9L, Calcium Level 9.2 CBC/BMP Laboratory Tests 06/01/20 15:23 06/02/20 06:01 MARIXA SCOTT MD Jun 02, 2020 12:01
[2020-06-02] MEDS: FUROSEMIDE 100MG/10ML VIAL (J1940) IV SCH ×2 (13:03→18:21)
[2020-06-02] MEDS: TAMSULOSIN 0.4 MG CAP PO SCH (20:34)
[2020-06-02] MEDS: ACETAMINOPHEN TAB 650MG DOSE (2X325MG) PO PRN (21:07)
[2020-06-03] VITALS: BP 137/87
[2020-06-03] MEDS: FUROSEMIDE 100MG/10ML VIAL (J1940) IV SCH ×4 (00:05→17:49)
[2020-06-03 04:00] VITALS: BP 152/89
[2020-06-03 04:34] LABS: APPEARANCE, URINE CLOUDY (CLEAR); BACTERIA, URINE AUTO 1+ (NEGATIVE); BILIRUBIN, URINE AUTO NEGATIVE (NEGATIVE); BLOOD, URINE BLOOD 2+ (NEGATIVE); COLOR, URINE YELLOW (YELLOW); GLUCOSE, URINE (UA) AUTO NEGATIVE (NEGATIVE); KETONE, URINE AUTO NEGATIVE (NEGATIVE); LEUKOCYTE ESTERASE, URINE AUTO 3+ (NEGATIVE); MUCUS, URINE SMALL (NEGATIVE); NITRITE, URINE AUTO NEGATIVE (NEGATIVE); PROTEIN, URINE AUTO 1+ mg/dL (NEGATIVE); RBC, URINE AUTO 36 /HPF (0-3); SPECIFIC GRAVITY URINE AUTO 1.006 (1.002-1.035); SQUAMOUS EPITHELIAL CELL UR AU 0 /HPF (0-6); UROBILINOGEN, URINE AUTO 0.2 mg/dL (0.0-2.0); WBC, URINE AUTO TNTC /HPF (0-3)
[2020-06-03] MEDS: LEVOTHYROXINE 75MCG TABLET (0.075MG) PO SCH (05:29)
[2020-06-03] MEDS: LEVOTHYROXINE 100MCG TABLET (0.1MG) PO SCH (05:29)
[2020-06-03 05:57] LABS: BASO % 0.4 % (0.0-1.0); EOS # 0.4 10^3/uL (0.0-0.5); EOS % 8.1 % (0.0-3.0); HEMATOCRIT 27.1 % (42.0-52.0); HEMOGLOBIN 8.2 g/dl (13.5-17.5); LYMPH # 0.3 10^3/uL (1.5-5.0); LYMPH % 6.2 % (24.0-44.0); MEAN CORPUSCULAR HEMOGLOBIN 29.8 pg (27.0-33.0); MEAN CORPUSCULAR HGB CONC 30.3 g/dl (32.0-36.5); MEAN CORPUSCULAR VOLUME 98.5 fl (80.0-96.0); MONO # 0.5 10^3/uL (0.0-0.8); MONO % 8.9 % (0.0-5.0); NEUTROPHILS # 3.9 10^3/uL (1.5-8.5); NEUTROPHILS % 75.8 % (36.0-66.0); PLATELET COUNT, AUTOMATED 116 10^3/uL (150-450); RED BLOOD COUNT 2.75 10^6/uL (4.30-6.10); WHITE BLOOD COUNT 5.2 10^3/uL (4.0-10.0)
[2020-06-03 06:22] LABS: CALCIUM LEVEL 9.1 MG/DL (8.8-10.2); CREATININE FOR GFR 3.32 MG/DL (0.70-1.30); GLOMERULAR FILTRATION RATE 19.1 (>35); POTASSIUM SERUM 3.5 MEQ/L (3.5-5.1)
[2020-06-03 08:00] VITALS: BP 162/74
[2020-06-03] MEDS: glipiZIDE *2.5MG* 1/2 TABLET PO SCH (08:51)
[2020-06-03] MEDS: HEPARIN SOD (PORCINE) 5000UNITS/ML 1ML VIAL/SYRINGE SC SCH ×2 (08:51→20:01)
[2020-06-03] MEDS: ASPIRIN 81 MG ENTERIC TAB PO SCH (08:52)
[2020-06-03] MEDS: METOPROLOL SUCC (TopROL XL) 50MG **XL** TAB PO SCH (08:52)
[2020-06-03] MEDS: SENOKOT S TAB PO SCH ×2 (08:52→20:02)
[2020-06-03] MEDS: PANTOPRAZOLE 40MG VIAL (C9113 PER 1) IV SCH ×2 (08:52→20:00)
[2020-06-03] MEDS: SUCRALFATE 1 GM TAB PO SCH ×4 (08:53→20:02)
[2020-06-03] MEDS: allopurinoL 300 MG TAB PO SCH (08:53)
--- NOTE | 2020-06-03 10:03 | REP ---
INDICATION: Acute Renal Failure,h/o Ca Prostate/ barriga catheter in place. COMPARISON: Comparison sonography December 22, 2018.. TECHNIQUE: Transabdominal urinary tract scanning. FINDINGS: A Barriga catheter is noted in the urinary bladder. No other bladder abnormality is seen.. Renal cortical echogenicity pattern is somewhat increased consistent with chronic medical renal disease.. There is moderate left-sided hydronephrosis and hydroureter. The proximal ureter at the level of the lower pole the left kidney is dilated measuring 1.5 cm. No calculus is seen. No hydronephrosis is noted on the right. In the upper pole the right kidney there is a 1.7 x 1.4 x 1.4 cm hypoechoic area. This does not appear to have been present previously. It may be a cyst but it is not well enough seen to be confident. No other evidence of renal mass lesion is observed.. The right kidney measures 14.7 x 5.8 x 5.4 cm. Left renal dimensions are 14.2 x 5.4 x 7.1 cm. IMPRESSION: Moderate hydronephrosis and proximal hydroureter seen on the left. 1.7 cm hypoechoic lesion upper pole right kidney may be a cyst versus hypoechoic solid lesion. Not previously present. Consider CT or MRI scanning.. <Electronically signed by Sean Domínguez > 06/03/20 [id number]
[2020-06-03] MEDS: cefTRIAXone SOD 1 GM in D5W MINI-BAG PLUS 50 ML IV SCH (10:55)
[2020-06-03] MEDS ORDERED: POTASSIUM CHLORIDE 10 MEQ SR TABLET PO ONE (11:15)
--- NOTE | 2020-06-03 11:42 | IPNPDOC ---
Subjective Date Seen The patient was seen on 06/03/20. Subjective Chief Complaint/HPI SOb is a little better, no other complaints. Objective Physical Examination General Exam: Positive: Alert, Cooperative, No Acute Distress Eye Exam: Positive: PERRLA, Conjunctiva & lids normal, EOMI; Negative: Sclera icteric ENT Exam: Positive: Atraumatic, Mucous membr. moist/pink, Pharynx Normal Neck Exam: Positive: Supple; Negative: JVD, thyromegaly Chest Exam: Positive: Rales (at both bases), Diminished Heart Exam: Positive: Tachycardic, Irregular Rhythm, Normal S1, Normal S2, Murmurs (present) Telemetry: Positive: Atrial fibrillation Abdomen Exam: Positive: Normal bowel sounds, Soft; Negative: Tenderness, Hepatospenomegaly Extremity Exam: Positive: Edema ($= bilateral extending up to the hips), Normal pulses, Other (lymphedema); Negative: Clubbing, Cyanosis Skin Exam: Positive: Other skin issue (Chronic bilateral venous stasis changes in both the legs.) Assessment /Plan Assessment 79 year old morbidly obese gentleman with PMH of CKD stage 3 to 4 with baseline creatinine of 2.8, systolic chf, lymphedema, hypothyroidism, hypertension, hld, dm presented to the ED for abnormal labs. He had gone to see PMD for worsening SOB for 1 month which really got worse for the past 1 week so that he could hardly make it to the bathroom. Lab work with PMD showed a Hb of 7.2 so was called and instructed to come to the ED. Patient's last Hb in february was 9.4 and his hb with Dr Meng was 11.2 in December with a creatinine of 2.5 and GFR of 35. He was last seen at the nephrology office in December this year and has a follow up appointment later this month 06/11/20. He does report some weight gain but does not know how much as he does not measure himself. He denies any cough or phlegm. Denies any overt bleeding from anywhere. No h/o love or hematochezia. No abdominal pain nausea or vomiting or diarrhea. He is unable to lay down in bed and needs several pillows. Hb in the ED was 7.2 again and he was admitted for symptomatic anemia. He was also in Afib with rate about 90 to 110. Symptomatic anemia will transfuse 2 units of prbc with lasix. checked iron profile, spep, vit b12, folate, free light chain, stool for occult blood. H/o right hemicolectomy 2016 with ileocolonic anastomosis for Cecal polyp with high-grade dysplasia. Had EGD and Colonoscopy after the procedure as then also he had an episode of GIB and no bleeding source was found. May be having a slow GIB will need EGD and colonoscopy in the near future once fluid status has been optimized. Dr Aceves consulted for possible GIB. No EGD and Colonoscopy at present as needs aggressive diuresis for massive fluid overload and will not be able to do bowel prep. will give PPI and sucralfate. Chronic Afib continue metoprolol on asa will continue Not on anticoagulation because of h/o bleeding Denisa on CKD due to fluid overload and CHF exacerbation and possibly obstructive uropathy Renal US: There is moderate left-sided hydronephrosis and hydroureter. The proximal ureter at the level of the lower pole the left kidney is dilated measuring 1.5 cm. No calculus is seen. No hydronephrosis is noted on the right. CT abd and pelvis ordered. On high dose IV lasix Barriga for accurate I/O nephrology following Acute on chronic Systolic CHF with EF of 50% in 2019 Now with massive fluid overload. 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 Plan/VTE VTE Prophylaxis Ordered?: Yes VS, I&O, 24H, Fishbone Vital Signs/I&O Vital Signs Date Time Temp Pulse Resp B/P (MAP) Pulse Ox O2 Delivery O2 Flow Rate FiO2 06/03/20 08:52 94 140/70 06/03/20 08:00 97.6 12 95 Room Air I&O- Last 24 Hours up to 6 AM 06/03/20 06:00 Intake Total 1020 ml Output Total 2600 ml Balance -1580 ml Laboratory Data 24H LABS Laboratory Tests 2 06/03/20 03:58: Urine Color YELLOW, Urine Appearance CLOUDYH, Urine pH 5.0, Urine Specific [place] 1.006, Urine Protein 1+H, Urine Glucose (Auto)(UA) NEGATIVE, Urine Ketones (Auto) NEGATIVE, Urine Blood 2+H, Urine Nitrite NEGATIVE, Urine Bilirubin NEGATIVE, Urine Urobilinogen 0.2, Urine Leukocyte Esterase (Auto) 3+H, Urine WBC (Auto) TNTCH, Urine RBC (Auto) 36H, Urine Hyaline Casts (Auto) 10, Urine Bacteria (Auto) 1+H, Urine Squamous Epithelial Cells 0, Urine Mucus (Auto) SMALL, Urine Sperm (Auto) 06/03/20 05:38: Immature Granulocyte % (Auto) 0.6, Neutrophils (%) (Auto) 75.8H, Lymphocytes (%) (Auto) 6.2L, Monocytes (%) (Auto) 8.9H, Eosinophils (%) (Auto) 8.1H, Basophils (%) (Auto) 0.4, Neutrophils # (Auto) 3.9, Lymphocytes # (Auto) 0.3L, Monocytes # (Auto) 0.5, Eosinophils # (Auto) 0.4, Basophils # (Auto) 0.0, Nucleated Red Blood Cells % (auto) 0.0, Anion Gap 9, Glomerular Filtration Rate 19.1L, Calcium Level 9.1 CBC/BMP Laboratory Tests 06/03/20 05:38 MARIXA SCOTT MD Jun 03, 2020 11:42
[2020-06-03 12:00] VITALS: BP 138/70
--- NOTE | 2020-06-03 12:32 | REP ---
INDICATION: Stone Protocol, Acute Renal failure,Lt hydro COMPARISON: Comparison CT study September 28, 2018.. TECHNIQUE: Helical scanning is acquired in 4 mm axial images were reformatted. Coronal and sagittal MPR images were generated and reviewed. FINDINGS: Digital preliminary instructional manager radiograph demonstrates an unremarkable bowel gas pattern. There is a small amount of right pleural fluid. The lung bases are otherwise clear on axial CT images. There is mild diffuse abdominal ascites seen on abdominal CT images. There are venous collaterals in the left upper abdomen. A somewhat irregular liver contour is seen in the left lobe is prominent in the liver question cirrhosis. There is extensive vascular calcification. There is an intrarenal calculus in the lower pole the right kidney measuring 9 mm in greatest diameter. No right-sided hydronephrosis is seen. There is moderate hydronephrosis affecting the left kidney however. The left ureter is dilated moderately. No ureteral calculus or mass lesion is seen but the ureter is dilated into the pelvis to a level just above the ureterovesical junction. A Haskins catheter is seen in the urinary bladder. There are fiducial marker rings in the atrophic prostate bed. Seminal vesicles are unremarkable. No definite bladder calculus is seen. Small and large bowel loops are unremarkable. There is a colonic anastomosis in the central abdomen. IMPRESSION: Moderate left-sided hydronephrosis and hydroureter with no obstructive lesion seen. The left ureter is seen to be dilated well into the pelvis 2.3-4 cm are of of the ureterovesical junction. There is an intrarenal calculus in the lower pole the right kidney. No right-sided hydronephrosis is seen. There is mild diffuse ascites and there is evidence suggestive of cirrhosis. A small right pleural effusion is noted. <Electronically signed by Sean Domínguez > 06/03/20 [id number]
[2020-06-03 13:06] LABS: FOLATE 16.1 NG/ML (>5.4)
--- NOTE | 2020-06-03 13:28 | CR ---
DATE OF CONSULTATION: 06/02/2020 REQUESTING PHYSICIAN: Dr Marielos Davis. REASON FOR CONSULTATION: Management of acute renal failure superimposed on chronic kidney disease and volume overload. CHIEF COMPLAINT: Patient presented to the hospital yesterday with worsening lower extremity edema and shortness of breath and abnormal labs at primary cares office. HISTORY OF PRESENT ILLNESS: Mr. Jeffrey Chaudhary is an 79-year-old male with a past medical history of chronic kidney disease stage 3B to early stage 4 with a baseline creatinine of 2.2 as of December 2019, when he was last seen by myself, chronic systolic congestive heart failure, chronic lymphedema, hypertension, dependent on high dose diuretics. He was having progressive shortness of breath and he was seen by primary care. Labs were done and he was found to have a hemoglobin of 7.2. Patient was sent to the Emergency Room. He was admitted under the hospitalist service yesterday. He was found to have significant lower extremity edema. He was given a dose of I.V. Lasix 80 mg by the admitting physician, and for anemia, 3 units of PRBC transfusions were ordered. Nephrology service was called for further help in the management of this patient because his creatinine was 3.3 on admission. I saw and evaluated the patient in the room today. He was sitting in the sofa. He had received 1 unit of blood by the time I saw him. He still reports shortness of breath on mild exertion and significant lower extremity edema. PAST MEDICAL HISTORY: Chronic kidney disease stage 3B to stage 4. He follows up with myself in the office. Morbid obesity, hypertension, atrial fibrillation; not on anticoagulation, chronic systolic congestive heart failure, diabetes mellitus type 2, history of prostate cancer; status post radiation therapy about 15 years ago, hypothyroidism, hyperlipidemia, lymphedema, chronic gout, history of left ureteral stricture; status post dilatation. PAST SURGICAL HISTORY: Status post bladder cauterization in April 2013, history of right hemicolectomy in 2016 with ileocolonic anastomosis for cecal polyps with high-grade dysplasia, history of cystoscopy with left retrograde pyelogram in November 2018. ALLERGIES: He is allergic to oysters. FAMILY HISTORY: No significant family history of end-stage renal disease requiring hemodialysis. SOCIAL HISTORY: Patient is a former smoker. He denies any illicit drug abuse or alcohol abuse. REVIEW OF SYSTEMS: CONSTITUTIONAL: He denies any fevers or chills. He does report fatigue. EYES: He denies any blurry vision or double vision. ENT: He denies any dysphagia or odynophagia. CARDIOVASCULAR: He reports shortness of breath and lower extremity edema. RESPIRATORY: He denies any cough or phlegm, but he does report progressive shortness of breath. GI: He denies any nausea, vomiting or melena. GENITOURINARY: He reports difficulty controlling the urine. MUSCULOSKELETAL: He reports muscle fatigue and edema. SKIN: He denies any rashes or ulcers. HEMATOLOGIC/ONCOLOGIC: He denies any bleeding or bruising. CHRISTMAS BELL RINGER: He denies any strokes, weakness or seizures. All other review of systems is negative. PHYSICAL EXAMINATION: GENERAL: Patient is awake, alert and oriented x3, morbidly obese, sitting up in the sofa. VITALS: Temperature 97.6 degrees Fahrenheit, blood pressure 143/67, pulse 83, respiratory rate 18, saturating 95% on room air. HEAD/NECK: Extraocular muscles intact. Pupils equally round and reactive to light. Mucous membranes are moist. Neck is supple. He has significantly elevated JVD. CVS: S1, S2, regular rate. 3+ edema of the bilateral lower extremities all the way up to his thighs. RESPIRATORY: Decreased breath sounds at the bases with inspiratory crackles at the bases. ABDOMEN: Soft, obese, positive bowel sounds. There is lower abdominal wall edema and there is presacral edema as well. MUSCULOSKELETAL: Chronic venous stasis changes and lymphedema of the bilateral lower extremities and significant edema starting from the ankle all the way up to thighs. CHRISTMAS BELL RINGER: No focal deficits. Power is 5/5 in all extremities. LABORATORY REVIEW: CBC showed WBC 4.9, hemoglobin 7.3 yesterday. Repeat CBC done today morning showed WBC 4.7, hemoglobin 7.9, platelets 109,000. BMP showed sodium 138, potassium 3.7, chloride 104, bicarb 27, BUN 93, creatinine 3.2; it was 3.3 yesterday. IMAGING STUDIES: There is only a chest x-ray available. There is no renal imaging available at this time. CURRENT INPATIENT MEDICATIONS: The patient's medications were all reviewed by myself. He is currently on Allopurinol 300 mg p.o. daily, aspirin 81 mg p.o. daily, Senokot two tablets p.o. twice a day. He was given Lasix 80 mg I.V. times one dose. I have started him on Lasix 80 mg I.V. every 6 hours with net negative fluid bolus of 3 liters per day. He is on Glipizide 2.5 mg p.o. daily, Levothyroxine 75 mcg p.o. daily along with 100 mcg p.o. daily. I also gave him a dose of Metolazone 2.5 mg p.o. times one dose. He is on Toprol XL 50 mg p.o. daily, Protonix 40 mg I.V. twice a day, potassium chloride 40 mEq p.o. times one dose, Carafate 1 gram p.o. with meals and he is on Flomax 0.4 mg p.o. in the evening. ASSESSMENT AND PLAN: 1. Acute renal failure superimposed on chronic kidney disease stage 3: The patient's creatinine is significantly higher than his baseline, most likely it is a combination of cardiorenal syndrome and we have to rule out obstruction versus hydronephrosis because he does have history of prostate and history of hydronephrosis in the past. Okay to continue aggressive diuresis. 2. Acute decompensated Cor Pulmonale: Patient is significantly volume overloaded, he has JVD, significant edema and elevated BNP. As mentioned above, I started him on Lasix 80 mg I.V. every 6 hours, one dose of Metolazone was also given. Potassium was given. Continue to monitor intake and output. Continue daily weight. 3. Acute blood loss anemia: Patient has had 3 units of PRBC ordered. Iron levels are low. No need of Aranesp administration at this time. 4. Chronic gout secondary to chronic kidney disease: Continue current dose of Allopurinol 300 mg p.o. daily. 5. Diabetes mellitus type 2: Non-insulin dependent, continue current dose of Glipizide 2.5 mg p.o. daily. Thank you for involving me in the care of this patient. I shall be happy to follow the patient along with you tomorrow morning. MTDD
--- NOTE | 2020-06-03 14:23 | CR ---
DATE OF CONSULTATION: 06/02/2020 REASON FOR CONSULTATION: Anemia. BRIEF HISTORY OF PRESENT ILLNESS: The patient is an 79-year-old white male presenting with shortness of breath and anemia presents to the Emergency Room with an elevated creatinine. Usually his baseline is around 2.8. It has gone up to 3-4 and he essentially presents with aggressive anemia and I am asked to see him for a possible endoscopy. He does not complain of any melenic stools, no blood per rectum. He is not on any anticoagulation other than an aspirin. He has had upper as well as lower endoscopy for anemia in 2017 without evidence of the etiology of the anemia and essentially did find some small polyps in the colon but otherwise did not find any other significant abnormalities. He was originally on some anticoagulation for his atrial fibrillation but because of significant bruising and anemia has not been on that recently. PAST MEDICAL HISTORY: Significant for super morbid obesity, hypertension, atrial fibrillation, congestive heart failure, chronic kidney disease, non- insulin dependent diabetes mellitus, lower urinary tract symptoms (LUTS), history of prostate cancer status post radiation, history of hyperlipidemia, hypothyroidism, chronic venous insufficiency, chronic lymphedema, gout, kidney stones, radiation cystitis, and history of ureteral stricture with balloon dilatation, history of bladder catheterization, history of cataracts, history of right colectomy for a cecal high grade dysplasia polyp, history of kidney stones, history of umbilical hernia. MEDICATIONS ON ADMISSION INCLUDED: - Allopurinol - Aspirin - Glipizide - Synthroid - Metolazone - Metoprolol - Potassium - Flomax - Torsemide - I-Caps PHYSICAL EXAM: An 79-year-old male who cannot lie flat because of significant shortness of breath and fluid overload who looks in no significant distress at this point. HEENT is unremarkable. Lungs are clear anteriorly. Heart is regular with multiple irregular beats (does have a history of atrial fibrillation). Abdomen is soft, morbidly obese, nontender. Extremities reveal 4+ pitting edema bilaterally. IMPRESSION AND PLAN: The patient is an individual who has significant fluid retention at this time. I anticipate his anemia is partially dilutional. I am not sure how much of it is dilutional at this time and I would not be surprised if we have a significant improvement with improvement of his fluid retention. The premium service representative surmises that he may actually have about 40 pounds of extra water weight on board and given that I would not be surprised if his hematocrit at least corrects to some extent. More importantly given his current situation, he is not in a stable position that I would recommend proceeding with a bowel prep and an upper and lower endoscopy. More importantly, he is not able to lie flat to do those procedures so at this point I would not deem him an operative candidate until he is optimized. Secondly, I feel that at this point given his recent scopes in 2017 and without etiology of anemia that had been ongoing I anticipate that the likelihood of finding some significant abnormality is relatively low as well at this time. Thus, until he is stabilized I would recommend holding off on his upper and lower endoscopy. If further evaluation is necessary without sedation possibly proceeding with an upper GI with small bowel follow through or CT colonography are warranted, but at this point we will follow him expectantly until he is stable. CARIN
--- NOTE | 2020-06-03 14:27 | IPN ---
NEPHROLOGY PROGRESS NOTE DATE: 06/03/2020 SUBJECTIVE: The patient was seen and examined at the bedside today morning. He was having incontinence of the urine. He was unable to control. He got the Haskins catheter replaced yesterday. He continues to be on IV diuretics. No significant improvement in the renal function. Creatinine is at 3.3 today. Urinalysis showed that there were too numerous to count WBCs. He was also started on Rocephin today by myself. Otherwise he is afebrile and hemodynamically stable. OBJECTIVE: VITAL SIGNS: Temperature is 97.5 degrees Fahrenheit, blood pressure 162/74, pulse is 104, respiratory rate of 12, saturating 95% on room air. Intake and Output urine output recorded as 1.6 liters yesterday, 1.9 liters so far today since overnight. Weight on the bed scale is 151.5 kg. PHYSICAL EXAMINATION: GENERAL APPEARANCE: The patient is awake, alert, oriented x3, morbidly obese, sitting up in the bed. HEAD AND NECK: Extraocular muscles intact. Pupils are equally round and reactive to light. Mucous membranes are moist. Neck is supple. Moderately elevated jugular venous distention. CARDIOVASCULAR: S1, S2, regular rate. EXTREMITIES: 3+ edema of the bilateral lower extremities. RESPIRATORY: Mildly decreased breath sounds at the bases. Otherwise no active rales or rhonchi. ABDOMEN: Soft, obese, positive bowel sounds. I could not appreciate any organomegaly because of body habitus. GENITOURINARY: He has an indwelling Haskins catheter. MUSCULOSKELETAL: He has 3+ edema in the legs and 2+ edema in the thighs. ASSEMBLER WATCH TRAIN: No focal deficits. Power is 5/5 in all extremities. LAB REVIEW: CBC showed a WBC of 5.2, hemoglobin 8.2, platelets are 116. Urinalysis done today showed it was very cloudy, 3+ leukocyte esterase, too numerous to count WBCs. BMP today showed 139, potassium 3.5, chloride 103, bicarbonate 27, BUN 94, creatinine is 3.3; it was 3.2 yesterday. IMAGING: A renal ultrasound was done today morning. It showed moderate hydronephrosis and proximal hydroureter on the left and there was a 1.7 cm hypoechoic lesion in the upper pole of the right kidney. CURRENT INPATIENT MEDICATIONS: The patient's medications were all reviewed by myself. I have started the patient on IV Ceftriaxone because of a urinary tract infection. He continues to be on Lasix 80 mg IV q. 6 hourly with holding parameters. I gave him another dose of Potassium Chloride 40 mEq. today morning. ASSESSMENT AND PLAN: 1. Acute renal failure superimposed on chronic kidney disease - The patients renal function still shows no improvement. However he has significant edema. Continue current diuretic dose. There is right sided hydronephrosis and history of a left sided retrograde pyelogram done last year. I have ordered a CAT scan abdomen and pelvis with stone protocol to make sure he does not have any stone in the ureter. In that case, Urology consult will be requested. 2. Urinary tract infection - The patient has a dirty urinalysis. He has been started on IV Ceftriaxone. 3. Chronic gout secondary to chronic kidney disease - continue current dose of Allopurinol 300 mg p.o. daily. 4. [id number] decompensated Right heart failure - continue Lasix 30 mg IV q. 6 hourly. He was also given a dose of potassium today. 5. Anemia - The patient was given 3 units of PRBC transfusion. Hemoglobin level is 8.2 which is still not adequate given that he has been given 3 units of blood so far. MTDD
[2020-06-03 14:46] LABS: ALBUMIN 3.32 GM/DL (3.29-5.55); ALPHA-1-GLOBULIN % 5.1 % (2.9-4.9); ALPHA-2-GLOBULINS 0.86 GM/DL (0.42-0.99); ALPHA-2-GLOBULINS % 10.9 % (7.1-11.8); BETA-1-GLOBULINS % 6.6 % (4.7-7.2); BETA-2-GLOBULINS % 9.5 % (3.2-6.5); GAMMA GLOBULIN % 25.9 % (11.1-18.8)
[2020-06-03 14:47] LABS: BETA-1-GLOBULINS 0.52 GM/DL (0.28-0.60); BETA-2-GLOBULINS 0.75 GM/DL (0.19-0.55); GAMMA GLOBULINS 2.05 GM/DL (0.65-1.58)
[2020-06-03 16:00] VITALS: BP 135/83
[2020-06-03 20:00] VITALS: BP 131/70
[2020-06-03] MEDS: TAMSULOSIN 0.4 MG CAP PO SCH (20:02)
[2020-06-04] VITALS: BP 135/68
[2020-06-04] MEDS: ACETAMINOPHEN TAB 650MG DOSE (2X325MG) PO PRN (03:23)
[2020-06-04 04:00] VITALS: BP 143/60
[2020-06-04] MEDS: LEVOTHYROXINE 100MCG TABLET (0.1MG) PO SCH (05:26)
[2020-06-04] MEDS: LEVOTHYROXINE 75MCG TABLET (0.075MG) PO SCH (05:27)
[2020-06-04] MEDS: FUROSEMIDE 100MG/10ML VIAL (J1940) IV SCH ×4 (05:28→17:50)
[2020-06-04 06:01] LABS: BASO % 0.2 % (0.0-1.0); EOS # 0.4 10^3/uL (0.0-0.5); EOS % 7.8 % (0.0-3.0); HEMATOCRIT 28.6 % (42.0-52.0); HEMOGLOBIN 8.3 g/dl (13.5-17.5); LYMPH # 0.4 10^3/uL (1.5-5.0); LYMPH % 7.6 % (24.0-44.0); MEAN CORPUSCULAR HEMOGLOBIN 28.8 pg (27.0-33.0); MEAN CORPUSCULAR VOLUME 99.3 fl (80.0-96.0); MONO # 0.5 10^3/uL (0.0-0.8); MONO % 9.8 % (0.0-5.0); NEUTROPHILS # 3.7 10^3/uL (1.5-8.5); NEUTROPHILS % 74.2 % (36.0-66.0); PLATELET COUNT, AUTOMATED 107 10^3/uL (150-450); RED BLOOD COUNT 2.88 10^6/uL (4.30-6.10)
[2020-06-04 06:18] LABS: CREATININE FOR GFR 3.43 MG/DL (0.70-1.30); GLOMERULAR FILTRATION RATE 18.4 (>35); POTASSIUM SERUM 3.4 MEQ/L (3.5-5.1)
[2020-06-04 08:00] VITALS: BP_SYST 144; BP_SYST 153; BP_DIAS 68; BP_DIAS 71
[2020-06-04] MEDS: cefTRIAXone SOD 1 GM in D5W MINI-BAG PLUS 50 ML IV SCH (09:17)
[2020-06-04] MEDS: PANTOPRAZOLE 40MG VIAL (C9113 PER 1) IV SCH (09:18)
[2020-06-04] MEDS: SENOKOT S TAB PO SCH ×2 (09:18→20:35)
[2020-06-04] MEDS: POTASSIUM CHLORIDE 10 MEQ SR TABLET PO SCH ×2 (09:18→20:34)
[2020-06-04] MEDS: HEPARIN SOD (PORCINE) 5000UNITS/ML 1ML VIAL/SYRINGE SC SCH ×2 (09:18→20:35)
[2020-06-04] MEDS: glipiZIDE *2.5MG* 1/2 TABLET PO SCH (09:19)
[2020-06-04] MEDS: allopurinoL 300 MG TAB PO SCH (09:19)
[2020-06-04] MEDS: SUCRALFATE 1 GM TAB PO SCH ×4 (09:19→20:35)
[2020-06-04] MEDS: ASPIRIN 81 MG ENTERIC TAB PO SCH (09:19)
[2020-06-04] MEDS: METOPROLOL SUCC (TopROL XL) 50MG **XL** TAB PO SCH (09:19)
[2020-06-04] MEDS ORDERED: DEXTROSE 50% 50 ML SYRINGE IV PRN (09:30)
[2020-06-04] MEDS ORDERED: GLUCOSE 4GM CHEW TABLET PO PRN (09:30)
[2020-06-04] MEDS ORDERED: GLUCAGON INJ 1MG VIAL SC PRN (09:30)
[2020-06-04 11:13] LABS: TOTAL PROTEIN 7.9 GM/DL (6.4-8.2)
[2020-06-04 12:00] VITALS: BP 150/84
--- NOTE | 2020-06-04 13:34 | IPN ---
DATE: 06/04/2020 SUBJECTIVE: Jeffrey is seen in the PCU, admitted with symptomatic anemia and transfused two units of packed red blood cells. Had heme positive stool and was seen by Dr. Dietz who did not feel he needed endoscopic evaluation. He is on proton pump inhibitor and Carafate. His hemoglobin is stable. He had acute kidney injury. Ultrasound showed left hydronephrosis with hydroureter. Nephrology is following for this. He has acute on chronic congestive heart failure with preserved ejection fraction. Ejection fraction at 50%. He is getting diuresed for this. It is felt that much of his anemia is dilutional related to his severe volume overload. He also has right-sided heart failure with features of Cor pulmonale including severe edema. Overall, he feels less short of breath than he did yesterday. He denies any fever or chills. His white count has been normal. He is on Rocephin and I do not see a clear indication for that, so we are stopping it today. He has type 2 diabetes. He is on sulfonylurea, glipizide 2.5 mg daily, and does not currently have fingerstick blood sugar monitoring ordered. We are stopping that today as well due to the high risk of hypoglycemia on enforced diabetic diet. He did get good diuresis yesterday, diuresing 3.4 liters. He actually had a net positive of 1.9 liters the first two days in the hospital, but started a good diuresis yesterday. OBJECTIVE: VITAL SIGNS: Pulse 93, respiratory rate 18. GENERAL: Alert, conversant, in no distress. LUNGS: Decreased breath sounds. NECK: JVD is present. HEART: Regular rate and rhythm. There is a 1/6 systolic ejection murmur. ABDOMEN: Distended. EXTREMITIES: He has extensive 2+ edema to the waist. Pulses are not palpable in the feet due to the edema. LABORATORY DATA: Sodium 138, potassium 3.4, BUN 91, creatinine 3.4, glucose 111. White count 5, hemoglobin 8.3, platelets 107,000. IMPRESSION/PLAN: 1. Massive volume overload with symptomatic anemia. Plan is to continue aggressive diuresis. He needs about a 2 liter net diuresis per day and has about a 10-15 liter volume overload based on clinical evaluation. Close attention to renal function and potassium with daily lab work. Daily CBCs have been ordered. 2. Diabetes. Stop his Glucotrol. He is on an enforced diabetic diet with the risk of hypoglycemia. Fingerstick blood sugars twice daily have been ordered. I do not think it requires insulin coverage at this point. 3. Acute kidney injury superimposed on chronic kidney disease. Nephrology is following. Daily labs have been ordered. 4. Left hydronephrosis with hydroureter. Management per nephrology. 5. Cor pulmonale with right-sided heart failure, as well as acute on chronic congestive heart failure with preserved ejection fraction of 50%. Diuresis as above. 6. Hypothyroidism stable on current dose of Levothyroxine. 7. BPH. He is on Flomax. Currently has a Haskins catheter in. 8. Hypokalemia. Oral potassium has been ordered. MTDD
[2020-06-04] MEDS ORDERED: FERRIC CARBOXYMALTOSE INJ 750 MG in NS 250 ML IV ONE (14:00)
[2020-06-04] MEDS ORDERED: SLF 3 ML SYR IV PRN (15:00)
[2020-06-04 16:00] VITALS: BP 112/53
[2020-06-04 20:00] VITALS: BP 154/70
[2020-06-04] MEDS: TAMSULOSIN 0.4 MG CAP PO SCH (20:35)
[2020-06-04] MEDS: SLF 3 ML SYR IV SCH (20:35)
[2020-06-05] VITALS: BP 132/62
[2020-06-05] MEDS: FUROSEMIDE 100MG/10ML VIAL (J1940) IV SCH ×6 (00:29→23:45)
[2020-06-05] MEDS: ACETAMINOPHEN TAB 650MG DOSE (2X325MG) PO PRN (00:30)
[2020-06-05 04:00] VITALS: BP 151/64
[2020-06-05] MEDS: SLF 3 ML SYR IV SCH ×3 (05:53→21:03)
[2020-06-05] MEDS: LEVOTHYROXINE 75MCG TABLET (0.075MG) PO SCH (05:53)
[2020-06-05] MEDS: LEVOTHYROXINE 100MCG TABLET (0.1MG) PO SCH (05:53)
[2020-06-05 06:49] LABS: BASO % 0.2 % (0.0-1.0); EOS # 0.4 10^3/uL (0.0-0.5); EOS % 8.2 % (0.0-3.0); HEMATOCRIT 28.6 % (42.0-52.0); HEMOGLOBIN 8.5 g/dl (13.5-17.5); LYMPH # 0.3 10^3/uL (1.5-5.0); LYMPH % 6.5 % (24.0-44.0); MEAN CORPUSCULAR HEMOGLOBIN 29.6 pg (27.0-33.0); MEAN CORPUSCULAR HGB CONC 29.7 g/dl (32.0-36.5); MEAN CORPUSCULAR VOLUME 99.7 fl (80.0-96.0); MONO # 0.5 10^3/uL (0.0-0.8); MONO % 9.4 % (0.0-5.0); NEUTROPHILS # 3.7 10^3/uL (1.5-8.5); NEUTROPHILS % 75.3 % (36.0-66.0); PLATELET COUNT, AUTOMATED 109 10^3/uL (150-450); RED BLOOD COUNT 2.87 10^6/uL (4.30-6.10); WHITE BLOOD COUNT 4.9 10^3/uL (4.0-10.0)
[2020-06-05 07:10] LABS: CALCIUM LEVEL 8.7 MG/DL (8.8-10.2); CREATININE FOR GFR 3.41 MG/DL (0.70-1.30); GLOMERULAR FILTRATION RATE 18.5 (>35); POTASSIUM SERUM 3.7 MEQ/L (3.5-5.1)
[2020-06-05 08:00] VITALS: BP 132/72
[2020-06-05] MEDS: HEPARIN SOD (PORCINE) 5000UNITS/ML 1ML VIAL/SYRINGE SC SCH ×2 (08:10→21:03)
[2020-06-05] MEDS: SUCRALFATE 1 GM TAB PO SCH ×4 (08:11→21:02)
[2020-06-05] MEDS: METOPROLOL SUCC (TopROL XL) 50MG **XL** TAB PO SCH (08:20)
[2020-06-05] MEDS: SENOKOT S TAB PO SCH ×2 (08:21→21:00)
[2020-06-05] MEDS: allopurinoL 300 MG TAB PO SCH (08:21)
[2020-06-05] MEDS: PANTOPRAZOLE 40MG TAB (PROTONIX) PO SCH (08:21)
[2020-06-05] MEDS: ASPIRIN 81 MG ENTERIC TAB PO SCH (08:21)
[2020-06-05] MEDS: POTASSIUM CHLORIDE 10 MEQ SR TABLET PO SCH ×2 (08:22→21:02)
[2020-06-05] MEDS ORDERED: metOLazone 5 MG TAB PO ONE (11:30)
[2020-06-05 12:00] VITALS: BP 126/66
[2020-06-05 16:00] VITALS: BP 124/63
[2020-06-05 20:00] VITALS: BP 128/62
[2020-06-05] MEDS: TAMSULOSIN 0.4 MG CAP PO SCH (21:02)
[2020-06-06] VITALS: BP 133/67
[2020-06-06 04:00] VITALS: BP 129/59
[2020-06-06] MEDS: LEVOTHYROXINE 100MCG TABLET (0.1MG) PO SCH (05:29)
[2020-06-06] MEDS: LEVOTHYROXINE 75MCG TABLET (0.075MG) PO SCH (05:29)
[2020-06-06] MEDS: ACETAMINOPHEN TAB 650MG DOSE (2X325MG) PO PRN (05:30)
[2020-06-06] MEDS: SLF 3 ML SYR IV SCH ×3 (05:32→20:17)
[2020-06-06] MEDS: FUROSEMIDE 100MG/10ML VIAL (J1940) IV SCH ×4 (05:32→23:24)
[2020-06-06 05:52] LABS: BASO % 0.2 % (0.0-1.0); EOS # 0.5 10^3/uL (0.0-0.5); EOS % 10.1 % (0.0-3.0); HEMATOCRIT 27.7 % (42.0-52.0); LYMPH # 0.3 10^3/uL (1.5-5.0); LYMPH % 7.1 % (24.0-44.0); MEAN CORPUSCULAR HEMOGLOBIN 28.7 pg (27.0-33.0); MEAN CORPUSCULAR HGB CONC 28.9 g/dl (32.0-36.5); MEAN CORPUSCULAR VOLUME 99.3 fl (80.0-96.0); MONO # 0.5 10^3/uL (0.0-0.8); MONO % 10.3 % (0.0-5.0); NEUTROPHILS # 3.3 10^3/uL (1.5-8.5); NEUTROPHILS % 71.9 % (36.0-66.0); PLATELET COUNT, AUTOMATED 100 10^3/uL (150-450); RED BLOOD COUNT 2.79 10^6/uL (4.30-6.10); WHITE BLOOD COUNT 4.6 10^3/uL (4.0-10.0)
[2020-06-06 06:17] LABS: CALCIUM LEVEL 8.7 MG/DL (8.8-10.2); CREATININE FOR GFR 3.36 MG/DL (0.70-1.30); GLOMERULAR FILTRATION RATE 18.9 (>35); MAGNESIUM LEVEL 2.3 MG/DL (1.8-2.4); POTASSIUM SERUM 3.3 MEQ/L (3.5-5.1)
[2020-06-06 07:45] VITALS: BP 138/68
[2020-06-06] MEDS: HEPARIN SOD (PORCINE) 5000UNITS/ML 1ML VIAL/SYRINGE SC SCH ×2 (08:45→20:16)
[2020-06-06] MEDS: POTASSIUM CHLORIDE 10 MEQ SR TABLET PO SCH ×5 (08:46→20:17)
[2020-06-06] MEDS: SENOKOT S TAB PO SCH ×2 (08:46→20:20)
[2020-06-06] MEDS: SUCRALFATE 1 GM TAB PO SCH ×4 (08:46→20:16)
[2020-06-06] MEDS: ASPIRIN 81 MG ENTERIC TAB PO SCH (08:46)
[2020-06-06] MEDS: PANTOPRAZOLE 40MG TAB (PROTONIX) PO SCH (08:50)
[2020-06-06] MEDS: METOPROLOL SUCC (TopROL XL) 50MG **XL** TAB PO SCH (08:50)
[2020-06-06] MEDS: allopurinoL 300 MG TAB PO SCH (08:50)
--- NOTE | 2020-06-06 10:45 | IPNPDOC ---
Subjective Review oF Systems Chief Complaint The patient is a 79-year-old male admitted with a reason for visit of Symptomatic Anemia. Events since Last Encounter Feeling better. No dyspnea. General: Reports: Normal Appetite; Denies: ROS Unobtainable, Chills, Night Sweats, Fatigue, Malaise, Other Symptoms Constitutional: Reports: Weakness; Denies: Fever, Chills, Sweats, Malaise, Other ENT: Denies: Head Aches, Ear Pain, Dysphagia, Sinus Congestion, Post Nasal Drip, Sore Throat, Epistaxis, Other Symptoms Cardiovascular: Denies Chest Pain, Denies Palpitations; Reports Orthopnea; Denies Paroxysmal Noc. Dyspnea; Reports Edema; Denies Lt Headedness, Denies Other Symptoms Objective Physical Examination General Exam: Alert, Cooperative, No Acute Distress Eye Exam: [facility] ENT EXAM: Atraumatic, Pinna Normal Neck Exam: Supple Chest Exam: Normal air movement Heart Exam: Positive: Tachycardic, Irregular Rhythm, Normal S1, Normal S2, Murmurs (present) Vital Signs/I&O Vital Signs Date Time Temp Pulse Resp B/P (MAP) Pulse Ox O2 Delivery O2 Flow Rate FiO2 06/06/20 08:50 84 133/74 06/06/20 07:45 98.0 20 96 Room Air I&O- Last 24 Hours up to 6 AM 06/06/20 05:59 Intake Total 3134 ml Output Total 4850 ml Balance -1716 ml Laboratory Data Labs 24H Laboratory Tests 2 06/05/20 21:35: Bedside Glucose (Misc Panel) 160H 06/06/20 05:29: Immature Granulocyte % (Auto) 0.4, Neutrophils (%) (Auto) 71.9H, Lymphocytes (%) (Auto) 7.1L, Monocytes (%) (Auto) 10.3H, Eosinophils (%) (Auto) 10.1H, Basophils (%) (Auto) 0.2, Neutrophils # (Auto) 3.3, Lymphocytes # (Auto) 0.3L, Monocytes # (Auto) 0.5, Eosinophils # (Auto) 0.5, Basophils # (Auto) 0.0, Nucleated Red Blood Cells % (auto) 0.0, Anion Gap 7L, Glomerular Filtration Rate 18.9L, Calcium Level 8.7L, Magnesium Level 2.3 CBC/BMP Laboratory Tests 06/06/20 05:29 FSBS Laboratory Tests Test 06/05/20 21:35 Range/Units Bedside Glucose (Misc Panel) 160 83-110 MG/DL Assessment/Plan Date Seen The patient was seen on 06/06/20. Patient Summary A: Prostate Cancer - in remission post XRT with PSA 0.047; Non-obstructive left hydronephrosis with previous failure of stenting to improve renal function in 2019. CHF with anasarca; Renal failure; anemia. Subjectively improving. P: Per nephrology and hospitalists medical efforts. Please contact us if we can be of further help. Plan/VTE VTE Prophylaxis Ordered?: Yes RICHY YBARRA MD Jun 06, 2020 10:45
[2020-06-06 10:49] LABS: URIC ACID 7.2 MG/DL (3.5-7.2)
[2020-06-06] MEDS ORDERED: metOLazone 2.5 MG TAB PO ONE (11:30)
[2020-06-06 11:39] VITALS: BP 125/60
--- NOTE | 2020-06-06 13:59 | CR ---
DATE OF CONSULTATION: 06/03/2020 REASON FOR CONSULTATION: Left-sided hydronephrosis and history of prostate cancer. HISTORY OF PRESENT ILLNESS: Mr. Chaudhary is an unfortunate, 79-year-old man who is well known to the urology service because of issues related to his prostate cancer and therapy, which included radiation treatment. He has been treated in the past for radiation cystitis and has ongoing issues with urgency and urgency incontinence requiring up to four pads per day. When admitted last year, he was noted to have left-sided hydronephrosis and Dr. Garrett saw him at that time. She placed a stent in the hopes that this would improve his renal function, which unfortunately did not happen with two months observation. The stent did cause some increased urgency symptoms and bleeding but was of no benefit with regard to his creatinine. He does have chronic renal insufficiency and has had creatinines ranging as high as 6 in the past. Current creatinine is 3.3. His baseline is around 2.2. Comparing his current and past CAT scans show a very similar degree of dilation on the left system. Studies to assess flow prior to stent placement were indeterminate due to poor renal function. The patient does have chronic congestive failure, chronic lymphedema, hypertension and a requirement for high-dose diuretics. He has had a 40 pound weight gain in the last few months. He presented with a hemoglobin of 7.2 and has had a 3-unit transfusion during this hospital stay. The etiology of his anemia is uncertain. He does report an improved sense of well-being and diminished shortness of breath since being transfused. His last PSA was 0.02. His radiation therapy was in 2009. He did have to have bladder fulguration in 2012. PAST HISTORY: Includes the congestive failure; chronic renal disease, stage III-IV for which he is followed by nephrology. He has chronic edema, hypertension, atrial fibrillation, morbid obesity, type 2 diabetes mellitus, hypothyroidism, dyslipidemia, gout. PREVIOUS SURGERIES: Include prostate biopsy, bladder fulguration, cystoscopy and stent placement in 2019 with subsequent stent removal, right hemicolectomy in 2017 for cecal polyps with high-grade dysplasia. ALLERGIES: Oysters. FAMILY HISTORY: Noncontributory. SOCIAL HISTORY: The patient denies alcohol use. He is a former smoker. REVIEW OF SYSTEMS: A 12-point review of systems is negative except as noted above. He does report use of about four pads per day. Review of systems also reviewed from history and physical. It should be noted that the patient has been tried on oxybutynin in the past with little benefit. He did feel that it slowed his steam. MEDICATIONS: His other medications include Lasix, allopurinol, aspirin, Toprol, glipizide, Synthroid, Senokot, tamsulosin, Protonix and Carafate. PHYSICAL EXAMINATION: On physical exam, temperature is 97.7, pulse 97, respirations 20, blood pressure 135/83, saturation 93 on room air. In general, he is awake and alert; oriented x3 and cooperative. His neck is supple. Chest is clear. Cardiac exam: Regular rate and rhythm. Abdominal exam shows morbid obesity with a protuberant abdomen and peau 'orange change on the anterior abdomen below the umbilicus. His genitalia are obscured by his overlying pannus. Testes are descended. A Haskins catheter is in place draining clear urine. He does have peripheral edema in his lower extremities. Neurologic exam is nonfocal. Psychiatric shows acceptable judgment and cognition. IMPRESSION: 1. Prostate cancer, status post radiation therapy with latest PSA suggestive of complete remission. 2. History of radiation cystitis. 3. Chronic, nonobstructive left hydronephrosis with previous failure of improvement of renal function with stenting. 4. Chronic renal failure. 5. Congestive heart failure. 6. Diabetes mellitus. 7. Hypertension. 8. Hypothyroidism. 9. Gout. 10. Urgency incontinence with poor response to anticholinergic therapy. PLAN: I would not advise repeating the stent placement at this time. He has previously been shown not to benefit from this approach. I advise checking PSA, which is ordered. Thank you for this consultation. I will follow the patient with you. CARIN
--- NOTE | 2020-06-06 14:04 | IPN ---
DATE: 06/04/2020 SUBJECTIVE: The patient was seen and examined today morning at the bedside. He is afebrile and hemodynamically stable. He was seen by urology yesterday, they did not recommend any procedure for the left-sided hydronephrosis. He continues to be on I.V. diuretics. No significant improvement in the renal function, however, he is diuresing well and lower extremity edema is improving. OBJECTIVE: VITAL SIGNS: Temperature 98 degrees Fahrenheit, blood pressure 144/71, pulse 94, respiratory rate 18, saturating 95% on room air. INTAKE AND OUTPUT: Urine output recorded as 4.5 liters yesterday, 1.1 liter so far today. Weight in the bed scale is 148.5 kg. PHYSICAL EXAMINATION: APPEARANCE: Patient is awake, alert, oriented x3, sitting up in the bed, in no apparent distress. HEAD AND NECK: Extraocular muscles intact. Pupils equally round and reactive to light. Mucous membranes are moist. Neck is supple. He has significantly elevated JVD. CVS: S1, S2, regular rate. 2+ edema of the bilateral lower extremities all the way up to the thighs. RESPIRATORY: Decreased breath sounds at the bases with mild inspiratory crackles at the bases. ABDOMEN: Soft. Abdominal wall edema was noted. He has presacral edema as well. MUSCULOSKELETAL: 2+ edema of the extremities as mentioned above. Otherwise no clubbing or cyanosis. CARE MANAGEMENT ASSOCIATE: No focal deficits. Power is 5/5 in all extremities. LABORATORY REVIEW: CBC showed WBC 5, hemoglobin 8.3, platelets 107,000. BMP showed 138, potassium 3.4, chloride 102, bicarb 28, BUN 91, creatinine 3.4. CURRENT INPATIENT MEDICATIONS: The patient's medications were all reviewed by myself. He continues to be on Lasix 80 mg I.V. every 6 hours with holding parameter for a net negative of 3 liters per day. He was started on potassium chloride 40 mEq p.o. twice a day. His Glipizide has been stopped. No other significant change in the medications today. ASSESSMENT AND PLAN: 1. Acute renal failure superimposed on chronic kidney disease: Patient so far is tolerating the diuretics and his renal function is stable with a creatinine of around 3.3. Continue aggressive diuresis at this time. 2. Acute on chronic decompensated Right heart failure: Patient has dilated right heart on previous echocardiogram, no recent echo is available. He has significant volume overload. Continue current dose of Lasix and potassium chloride. 3. Iron deficiency anemia: Patient got 2 units of PRBC transfusion during this hospitalization. I have also ordered a dose of I.V. Injectafer to be given during this hospitalization. 4. Hypokalemia: It is secondary to aggressive diuresis, continue current dose of potassium chloride 40 mEq p.o. twice a day. 5. Urinary tract infection: Cultures are not available so far, his urinalysis was very dirty. His I.V. antibiotics have been stopped. MTDD
--- NOTE | 2020-06-06 14:07 | IPN ---
DATE: 06/05/2020 SUBJECTIVE: Jeffrey is doing well. He is having a slow gradual diuresis, which is what our plan is for the weekend. He has put out 5.2 liters over the last two days. He does have a 2 liter fluid restriction, which is a bit excessive and we are going to cut back on that some. He has no chest pain or shortness of breath. OBJECTIVE: VITAL SIGNS: Blood pressure 151/64, pulse 98, afebrile, 92% O2 saturation. LUNGS: Clear. HEART: Regular rhythm. ABDOMEN: Obese. EXTREMITIES: 2+ peripheral edema. LABORATORY DATA: CBC is unchanged. Electrolytes are unremarkable. Creatinine is stable at 3.4. Potassium 3.7. PLAN: Continue his diuresis. I will reduce his fluid intake to 1.5 liters. He has several more days of diuresis before he will be ready for discharge. CARIN
--- NOTE | 2020-06-06 14:08 | IPN ---
DATE: 06/05/2020 SUBJECTIVE: The patient was seen and examined at the bedside today morning. He is afebrile, hemodynamically stable. His swelling is getting better. He is diuresing well with the current dose of diuretics. Renal function is staying stable despite aggressive diuresis. OBJECTIVE: VITAL SIGNS: Temperature is 98.4 degrees Fahrenheit, blood pressure 126/66, pulse is 98, respiratory rate of 20, saturating 97% on room air. Intake and output urine output recorded as 3.5 liters yesterday and by the time I saw him, he had made 1.8 liters of urine. Weight on the bed scale is 145.8 kg. PHYSICAL EXAMINATION: GENERAL APPEARANCE: The patient is awake, alert, oriented x3, morbidly obese, sitting up in the bed. HEAD AND NECK: Extraocular muscles intact. Pupils are equally round and reactive to light. Mucous membranes are moist. Neck is supple. There is mildly elevated jugular venous distention. CARDIOVASCULAR: S1, S2, regular rate. EXTREMITIES: 2+ edema of the bilateral lower extremities. 3+ edema of the legs and 2+ edema of the thighs. ACCOUNTING MANAGER CPA: No focal deficits. Power is 5/5 in all extremities. LAB REVIEW: CBC showed a WBC of 4.9, hemoglobin 8.5, platelets are 109. BMP showed sodium 140, potassium 3.7, chloride 102, bicarbonate 30, BUN 90, creatinine is 3.4, calcium 8.7 CURRENT INPATIENT MEDICATIONS: The patient's medications were all reviewed by myself. He continues to be on Lasix 80 mg IV q. 6 hourly. I gave him a dose of Metolazone 5 mg p.o. times one dose. He was started on potassium chloride 40 mEq p.o. twice daily yesterday. ASSESSMENT AND PLAN: 1. Acute renal failure superimposed on chronic kidney disease - The patients creatinine is higher than his baseline. The CAT scan showed left sided hydronephrosis. However, Urology did not think that he needs any intervention at this time. Okay to continue the aggressive diuresis. Creatinine level is stable at this time. 2. Upkiw-be-bjrpamc decompensated congestive heart failure - continue Lasix 80 mg IV q. 6 hourly. 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 Continue current dose of potassium as well. 3. Anemia secondary to iron deficiency The patients hemoglobin level is 8.5 and it is slowly improving. He was given a dose of Injectafer a few days ago. 4. Urinary retention and h/o prostate cancer - The patient is aggressively being diuresed. He was unable to control his urine. He currently has a Haskins catheter. Continue the Haskins catheter while he is being diuresed. MTDD
--- NOTE | 2020-06-06 15:37 | IPN ---
DATE: 06/06/2020 SUBJECTIVE: Jeffrey is the same as yesterday. He continues to have a good gradual diuresis, hoping for about 2 liters of diuresis today. It was 1.5 yesterday. Had almost 7 liter diuresis since 06/03/2020. Less short of breath. Lower extremity edema has improved. PHYSICAL EXAMINATION: Vital signs: Stable. Lungs: Clear. Heart: Regular rate and rhythm. Abdomen: Obese. Extremities: 2+ peripheral edema but improved from yesterday. LABS: Hemoglobin 8, potassium is down to 3.3, creatinine stable at 3.36. IMPRESSION: Continue current diuresis. PLAN: I will supplement his potassium. The goal is about 2 liters of that diuresis today. Renal function is stable with the current diuretic regimen. MTDD
[2020-06-06 15:55] VITALS: BP 132/58
[2020-06-06 20:00] VITALS: BP 140/60
[2020-06-06] MEDS: TAMSULOSIN 0.4 MG CAP PO SCH (20:16)
[2020-06-07 04:00] VITALS: BP 124/51
[2020-06-07] MEDS: LEVOTHYROXINE 75MCG TABLET (0.075MG) PO SCH (05:35)
[2020-06-07] MEDS: FUROSEMIDE 100MG/10ML VIAL (J1940) IV SCH ×4 (05:35→23:47)
[2020-06-07] MEDS: LEVOTHYROXINE 100MCG TABLET (0.1MG) PO SCH (05:35)
[2020-06-07] MEDS: SLF 3 ML SYR IV SCH ×3 (05:36→20:41)
[2020-06-07 06:30] LABS: BASO % 0.4 % (0.0-1.0); EOS # 0.4 10^3/uL (0.0-0.5); EOS % 8.8 % (0.0-3.0); HEMATOCRIT 29.1 % (42.0-52.0); HEMOGLOBIN 8.6 g/dl (13.5-17.5); LYMPH # 0.3 10^3/uL (1.5-5.0); LYMPH % 6.4 % (24.0-44.0); MEAN CORPUSCULAR HEMOGLOBIN 29.8 pg (27.0-33.0); MEAN CORPUSCULAR HGB CONC 29.6 g/dl (32.0-36.5); MEAN CORPUSCULAR VOLUME 100.7 fl (80.0-96.0); MONO # 0.5 10^3/uL (0.0-0.8); MONO % 10.3 % (0.0-5.0); NEUTROPHILS # 3.6 10^3/uL (1.5-8.5); NEUTROPHILS % 73.5 % (36.0-66.0); PLATELET COUNT, AUTOMATED 103 10^3/uL (150-450); RED BLOOD COUNT 2.89 10^6/uL (4.30-6.10); WHITE BLOOD COUNT 4.9 10^3/uL (4.0-10.0)
[2020-06-07 06:55] LABS: CREATININE FOR GFR 3.35 MG/DL (0.70-1.30); GLOMERULAR FILTRATION RATE 18.9 (>35); MAGNESIUM LEVEL 2.3 MG/DL (1.8-2.4); POTASSIUM SERUM 3.5 MEQ/L (3.5-5.1)
[2020-06-07] MEDS: SUCRALFATE 1 GM TAB PO SCH ×4 (07:47→20:39)
[2020-06-07 08:00] VITALS: BP 132/66
--- NOTE | 2020-06-07 08:37 | IPN ---
NEPHROLOGY PROGRESS NOTE DATE: 06/06/2020 SUBJECTIVE: The patient was seen and examined at the bedside today morning. He is afebrile, hemodynamically stable, responding very well to the IV and oral diuretics. Renal function is stable despite excessive diuresis. Lower extremity edema is improving. He denies any active complaints. OBJECTIVE: VITAL SIGNS: Temperature is 97.2 degrees Fahrenheit, blood pressure 125/60, pulse is 74, respiratory rate of 20, saturating 96% on room air. Intake and Output urine output recorded as 12.7 liters yesterday, 750 mL so far today since overnight. Weight on the bed scale is 145.6 kg which is stable since yesterday. PHYSICAL EXAMINATION: GENERAL APPEARANCE: The patient is awake, alert, oriented x3, morbidly obese, sitting up in the bed in no apparent distress. HEAD AND NECK: Extraocular muscles intact. Pupils are equally round and reactive to light. Mucous membranes are moist. Neck is supple. There is no jugular venous distention. CARDIOVASCULAR: S1, S2, regular rate. EXTREMITIES: 2+ edema of the bilateral lower extremities. RESPIRATORY: Chest is clear to auscultation bilaterally equally. Bilaterally currently no rales or rhonchi. ABDOMEN: Soft, positive bowel sounds. Abdominal wall edema was noted. GENITOURINARY: He has an indwelling Haskins catheter. MUSCULOSKELETAL: No clubbing, no cyanosis. Chronic venous stasis changes. PROTEIN PURIFICATION SCIENTIST: No focal deficits. Power is 5/5 in all extremities. LAB REVIEW: CBC showed a WBC of 4.6, hemoglobin is 8, platelets are 100. BMP showed sodium 141, potassium 3.3, chloride 104, bicarbonate 30, BUN 87, creatinine is 3.3. Calcium 8.7, magnesium is 2.3. CURRENT INPATIENT MEDICATIONS: The patient's medications were all reviewed by myself. He continues to be on Lasix 80 IV q. 6 hourly. His potassium has been increased to 40 mg four times daily by the Medical Team. He was also given a dose of Metolazone 2.5 mg times one dose. No other significant change in the medications. ASSESSMENT AND PLAN: 1. [id number] decompensated cor pulmonale - continue aggressive diuresis. Continue daily weight. Fluid restriction 1,800 mL daily. Volume status is slowly improving. 2. Hypokalemia - potassium is already changed to four times daily. 3. Iron deficiency anemia - hemoglobin level is dropping again. I am going to check the fecal occult blood testing, and I will give the patient a dose of IV Injectafer again next week; last dose was about 4 days ago. Transfuse p.r.n. for hemoglobin below 8. 4. Acute kidney injury superimposed on chronic kidney disease stage 4 adrenal function is stable with a creatinine of 3.3 since arrival. 5. History of cancer of the prostate - The patient has an indwelling Haskins catheter at this time. Continue Flomax. The patient was seen by Urology. No further recommendations. No need of stenting of the left sided hydronephrosis. MTDD
[2020-06-07] MEDS ORDERED: POTASSIUM CHLORIDE 10 MEQ SR TABLET PO SCH (09:00)
[2020-06-07] MEDS: HEPARIN SOD (PORCINE) 5000UNITS/ML 1ML VIAL/SYRINGE SC SCH ×2 (10:29→20:41)
[2020-06-07] MEDS: SENOKOT S TAB PO SCH ×2 (10:30→21:00)
[2020-06-07] MEDS: allopurinoL 300 MG TAB PO SCH (10:40)
[2020-06-07] MEDS: FERROUS GLUCONATE 324 MG TAB PO SCH (10:40)
[2020-06-07] MEDS: PANTOPRAZOLE 40MG TAB (PROTONIX) PO SCH (10:40)
[2020-06-07] MEDS: METOPROLOL SUCC (TopROL XL) 50MG **XL** TAB PO SCH (10:54)
[2020-06-07 12:00] VITALS: BP 117/60
[2020-06-07] MEDS: SPIRONOLACTONE 25 MG TAB PO SCH (13:42)
--- NOTE | 2020-06-07 14:01 | IPN ---
DATE: 06/07/2020 SUBJECTIVE: Jeffrey is seen in the PCU. He is being treated for significant volume overload with dilutional anemia. He also has heme positive stool (seen previously on admission by Dr. Aceves for surgery, did not feel the patient needed repeat endoscopies, (he had an upper and lower endoscopy in 2017 with no bleeding source seen). His hemoglobin has been stable. There has been no active bleeding. He has nonobstructive left hydronephrosis, previous failure of stenting in 2019. This has been followed by urology. He is also being seen daily by nephrology. For his chronic kidney disease he is diuresing well and has no decline in renal function with our current diuretic regimen. He is averaging about a 1.5 liter per day net diuresis. Denies any diarrhea, epistaxis or rectal bleeding. PHYSICAL EXAMINATION: HEENT: Unremarkable. LUNGS: Clear. HEART: Regular rhythm. ABDOMEN: Obese, nontender, no masses. EXTREMITIES: 2+ peripheral edema, better than yesterday. His legs are coming down gradually. LABORATORY DATA: Sodium is 142, potassium is 3.5, BUN is 88, creatinine is 3.35. Glucose 124, white count 4.9, hemoglobin 8.6, platelets 103. Blood sugar in the low 130 range. Stool for occult blood positive. ASSESSMENT: 1. Acute on chronic decompensated cor pulmonale/congestive heart failure, preserved ejection fraction. She is being diuresed with a progressive decline in volume by daily weights and exam. We are trying to get about 1.5 liter net diuresis per day. Renal function remains stable with this diuresis. 2. Hypokalemia, supplemental potassium has been ordered. 3. Anemia, iron deficient. He is going to receive some IV Injectafer next week. Nephrology recommends to transfuse if hemoglobin drops below 8. 4. Stage IV chronic kidney disease, being followed by Nephrology. 5. History of prostate cancer with left hydronephrosis, being followed by Urology. 6. Heme positive stool. He has already been seen by Surgery, they have not planned repeat endoscopy. 7. Diabetes. He is on his Glucotrol. His blood sugars are adequately controlled on an enforced diabetic diet. [facility]
[2020-06-07 16:00] VITALS: BP 122/62
[2020-06-07 20:00] VITALS: BP 107/68
[2020-06-07] MEDS: TAMSULOSIN 0.4 MG CAP PO SCH (20:39)
[2020-06-08] VITALS: BP 158/91
[2020-06-08 04:00] VITALS: BP 127/71
[2020-06-08] MEDS: LEVOTHYROXINE 100MCG TABLET (0.1MG) PO SCH (06:04)
[2020-06-08] MEDS: SLF 3 ML SYR IV SCH ×3 (06:04→22:18)
[2020-06-08] MEDS: LEVOTHYROXINE 75MCG TABLET (0.075MG) PO SCH (06:04)
[2020-06-08] MEDS: FUROSEMIDE 100MG/10ML VIAL (J1940) IV SCH ×2 (06:04→12:38)
[2020-06-08 06:16] LABS: BASO % 0.4 % (0.0-1.0); EOS # 0.4 10^3/uL (0.0-0.5); EOS % 8.2 % (0.0-3.0); HEMATOCRIT 27.1 % (42.0-52.0); HEMOGLOBIN 7.8 g/dl (13.5-17.5); LYMPH # 0.4 10^3/uL (1.5-5.0); LYMPH % 7.4 % (24.0-44.0); MEAN CORPUSCULAR HEMOGLOBIN 29.2 pg (27.0-33.0); MEAN CORPUSCULAR HGB CONC 28.8 g/dl (32.0-36.5); MEAN CORPUSCULAR VOLUME 101.5 fl (80.0-96.0); MONO # 0.5 10^3/uL (0.0-0.8); NEUTROPHILS # 3.6 10^3/uL (1.5-8.5); NEUTROPHILS % 73.4 % (36.0-66.0); RED BLOOD COUNT 2.67 10^6/uL (4.30-6.10); WHITE BLOOD COUNT 4.9 10^3/uL (4.0-10.0)
[2020-06-08 06:17] LABS: PLATELET COUNT, AUTOMATED 99 10^3/uL (150-450)
[2020-06-08 06:43] LABS: CREATININE FOR GFR 3.3 MG/DL (0.70-1.30); GLOMERULAR FILTRATION RATE 19.3 (>35); MAGNESIUM LEVEL 2.2 MG/DL (1.8-2.4); POTASSIUM SERUM 3.4 MEQ/L (3.5-5.1)
[2020-06-08] MEDS: SUCRALFATE 1 GM TAB PO SCH ×4 (07:37→20:35)
[2020-06-08 07:55] VITALS: BP 127/62
[2020-06-08] MEDS ORDERED: POTASSIUM CHLORIDE 10 MEQ SR TABLET PO ONE (08:15)
[2020-06-08] MEDS: SENOKOT S TAB PO SCH ×2 (09:00→20:35)
[2020-06-08] MEDS: POTASSIUM CHLORIDE 10 MEQ SR TABLET PO SCH (09:18)
[2020-06-08] MEDS: PANTOPRAZOLE 40MG TAB (PROTONIX) PO SCH (09:19)
[2020-06-08] MEDS: METOPROLOL SUCC (TopROL XL) 50MG **XL** TAB PO SCH (09:19)
[2020-06-08] MEDS: allopurinoL 300 MG TAB PO SCH (09:19)
[2020-06-08] MEDS: HEPARIN SOD (PORCINE) 5000UNITS/ML 1ML VIAL/SYRINGE SC SCH ×2 (09:20→20:35)
[2020-06-08] MEDS: FERROUS GLUCONATE 324 MG TAB PO SCH (09:20)
[2020-06-08 12:00] VITALS: BP 128/63
[2020-06-08] MEDS: SPIRONOLACTONE 25 MG TAB PO SCH (14:39)
[2020-06-08 16:00] VITALS: BP 120/77
--- NOTE | 2020-06-08 17:05 | IPNPDOC ---
Date Seen The patient was seen on 06/08/20. Progress Note SUBJECTIVE: No acute complaints on exam. H/H decreased to 7.8/27.1 without s/s of bleeding. Neg 2.8 L/24 hours with some tachycardia so will back down on diuresis some. Denies any chest pain, shortness of breath, n/v/d. PHYSICAL EXAMINATION: VS: Please see below GENERAL: NAD, resting at bedside chair, AAOX3 HEENT: Unremarkable. LUNGS: CTAB, no W/R/R CVS: S1S2 , no M/R/G ABDOMEN: Obese, nontender, no masses. : barriga catheter in place EXTREMITIES: 2+ peripheral edema, improving gradually. pulses + in all extremities, good capillary refill. PSYCH: Mood and affect wnl LABORATORY/MICROBIOLOGY: Please see below ASSESSMENT: #Acute on chronic decompensated cor pulmonale/congestive heart failure, preserved ejection fraction. Neg 2.8 L/24 hours with some incr in tachycardia. Monitoring progressive decline in volume by daily weights and exam. We are trying to get about 2 liter net diuresis per day. Renal function remains stable with this diuresis. C/w decreased dose of 60 mg IV lasix BID + spironolactone. # Hypokalemia likely 2/2 to diuresis. KCl 40 mEq daily. F/u AM labs #GABINO, cannot r/o GI bleed. Heme + stool this hospital stay. H/H decreased to 7.8/27 steadily. Cannot say this is 2/2 to dilutional effect from fluid overload. Surgery did not plan on repeat endoscopy. Will TB with surgery in the AM if H/H lower in the morning. Plan is for IV Venofer next week as o/p per nephrology. F/u CBC. # Stage IV chronic kidney disease. Hx of nonobstructive left hydronephrosis, previous failure of stenting in 2019. This has been followed by urology. He is also being seen daily by Nephrology. F/u AM labs #History of prostate cancer. Followed by urology. #Diabetes mellitus. BS controlled. C/w current treatment, consistent carb diet. #Hypothyroidism C/w current tx #DVT px. Heparin DISPOSITION: Currently under inpatient status. Plan is home with services when medical issues stabilize. VS, I&O, 24H, Fishbone Vital Signs/I&O Vital Signs Date Time Temp Pulse Resp B/P (MAP) Pulse Ox O2 Delivery O2 Flow Rate FiO2 06/08/20 12:00 98.2 81 18 128/63 (84) 99 Room Air I&O- Last 24 Hours up to 6 AM 06/08/20 06:00 Intake Total 920 ml Output Total 3275 ml Balance -2355 ml Laboratory Data 24H LABS Laboratory Tests 2 06/07/20 17:06: Bedside Glucose (Misc Panel) 128H 06/08/20 05:45: Immature Granulocyte % (Auto) 0.6, Neutrophils (%) (Auto) 73.4H, Lymphocytes (%) (Auto) 7.4L, Monocytes (%) (Auto) 10.0H, Eosinophils (%) (Auto) 8.2H, Basophils (%) (Auto) 0.4, Neutrophils # (Auto) 3.6, Lymphocytes # (Auto) 0.4L, Monocytes # (Auto) 0.5, Eosinophils # (Auto) 0.4, Basophils # (Auto) 0.0, Nucleated Red Blood Cells % (auto) 0.0, Immature Platelet Fraction 1.0, Anion Gap 6L, Glomerular Filtration Rate 19.3L, Calcium Level 9.0, Magnesium Level 2.2 06/08/20 12:45: Bedside Glucose (Misc Panel) 111H CBC/BMP Laboratory Tests 06/08/20 05:45 Microbiology Microbiology 06/06/20 Stool Occult Blood (SHER) - Final, Complete Current Medications Current Medications Medications (Trade) Dose Ordered Sig/Celsa Route PRN Reason Start Time Stop Time Status Last Admin Dose Admin Acetaminophen (Tylenol Tab) 650 mg Q4HP PRN PO PAIN OR FEVER 06/02/20 21:00 06/06/20 05:30 Allopurinol (Zyloprim) 300 mg DAILY PO 06/02/20 09:00 06/08/20 09:19 Aspirin (Ecotrin) 81 mg DAILY PO 06/02/20 09:00 06/06/20 17:59 DC 06/06/20 08:46 Ceftriaxone Sodium 1 gm/ Dextrose 50 ml @ 100 mls/hr Q24H IV 06/03/20 10:00 06/04/20 09:31 DC 06/04/20 09:17 Darbepoetin Vipin (Aranesp) 100 mcg We@09 SC 06/09/20 09:00 Dextrose (Dextrose 50%) 25 ml ASDIRECTED PRN IV SEE LABEL COMMENTS 06/04/20 09:30 Ferrous Gluconate (Fergon) 324 mg DAILY PO 06/07/20 09:00 06/08/20 09:20 Furosemide (LASIX injection) 80 mg Q6H IV 06/02/20 12:00 06/08/20 12:38 Glipizide (Glucotrol) 2.5 mg DAILY@0730 PO 06/02/20 07:30 06/04/20 09:31 DC 06/04/20 09:19 Glucagon (Glucagon) 1 mg ASDIRECTED PRN SC SEE LABEL COMMENTS 06/04/20 09:30 Glucose (Glucose) 16 GM ASDIRECTED PRN PO SEE LABEL COMMENTS 06/04/20 09:30 Heparin Sodium (Porcine) (Heparin) 5,000 units Q12H SC 06/01/20 21:00 06/08/20 09:20 Home Med (Med Rec Complete!) ASDIRECTED XX 06/01/20 16:15 06/01/20 16:13 DC Levothyroxine Sodium (Synthroid) 75 mcg DAILY@06 PO 06/02/20 06:00 06/08/20 06:04 Levothyroxine Sodium (Synthroid) 100 mcg DAILY@06 PO 06/02/20 06:00 06/08/20 06:04 Metoprolol Succinate (TopROL XL) 50 mg DAILY PO 06/02/20 09:00 06/08/20 09:19 Miscellaneous (Unresolved Clarification Entry) SEE LABEL COMMENTS DAILY XX 06/08/20 09:00 06/08/20 08:32 DC Pantoprazole Sodium (Protonix) 40 mg BID IV 06/01/20 21:00 06/04/20 09:31 DC 06/04/20 09:18 Pantoprazole Sodium (Protonix) 40 mg DAILY PO 06/05/20 09:00 06/08/20 09:19 Potassium Chloride (Micro-K Extencaps) 40 meq BID PO 06/04/20 09:00 06/06/20 09:05 DC 06/06/20 08:46 Potassium Chloride (Micro-K Extencaps) 40 meq BID PO 06/07/20 09:00 Cancel Potassium Chloride (Micro-K Extencaps) 40 meq DAILY PO 06/08/20 09:00 06/08/20 09:18 Potassium Chloride (Micro-K Extencaps) 40 meq QID PO 06/06/20 09:00 06/06/20 22:36 DC 06/06/20 20:17 Senna/Docusate Sodium (Senokot S) 2 tab BID PO 06/01/20 21:00 06/07/20 10:30 Sodium Chloride (Saline Lock Flush) 2 ml ASDIRECTED PRN IV SEE LABEL COMMENTS 06/04/20 15:00 Sodium Chloride (Saline Lock Flush) 2 ml SLF IV 06/04/20 22:00 06/08/20 14:39 Spironolactone (Aldactone) 25 mg DAILY@1400 PO 06/07/20 14:00 06/08/20 14:39 Sucralfate (Carafate) 1 gm ACHS PO 06/01/20 21:00 06/08/20 12:38 Tamsulosin HCl (Flomax) 0.4 mg QPM PO 06/01/20 21:00 06/07/20 20:39 Allergies Coded Allergies: Oyster (Verified Allergy, Intermediate, HIVES, 06/01/20) Cecilia Rosario MD Jun 08, 2020 17:05
[2020-06-08 20:00] VITALS: BP 132/46
[2020-06-08] MEDS: TAMSULOSIN 0.4 MG CAP PO SCH (20:35)
[2020-06-09] VITALS (10 sets, daily range): BP systolic 107–142; BP diastolic 60–71
[2020-06-09] MEDS: FUROSEMIDE 100MG/10ML VIAL (J1940) IV SCH ×2 (00:58→11:06)
[2020-06-09] MEDS: SLF 3 ML SYR IV SCH ×2 (05:53→11:17)
[2020-06-09] MEDS: LEVOTHYROXINE 75MCG TABLET (0.075MG) PO SCH (05:53)
[2020-06-09] MEDS: LEVOTHYROXINE 100MCG TABLET (0.1MG) PO SCH (05:53)
[2020-06-09 06:09] LABS: HEMATOCRIT 27.5 % (42.0-52.0); HEMOGLOBIN 8.1 g/dl (13.5-17.5); MEAN CORPUSCULAR HEMOGLOBIN 29.8 pg (27.0-33.0); MEAN CORPUSCULAR HGB CONC 29.5 g/dl (32.0-36.5); MEAN CORPUSCULAR VOLUME 101.1 fl (80.0-96.0); PLATELET COUNT, AUTOMATED 104 10^3/uL (150-450); RED BLOOD COUNT 2.72 10^6/uL (4.30-6.10); WHITE BLOOD COUNT 5.4 10^3/uL (4.0-10.0)
[2020-06-09 06:34] LABS: ALBUMIN 2.9 GM/DL (3.2-5.2); BILIRUBIN,TOTAL 1.1 MG/DL (0.2-1.0); CALCIUM LEVEL 8.6 MG/DL (8.8-10.2); CREATININE FOR GFR 3.36 MG/DL (0.70-1.30); GLOMERULAR FILTRATION RATE 18.8 (>35); POTASSIUM SERUM 3.4 MEQ/L (3.5-5.1); TOTAL PROTEIN 8.5 GM/DL (6.4-8.2)
[2020-06-09] MEDS: PANTOPRAZOLE 40MG TAB (PROTONIX) PO SCH (07:40)
[2020-06-09] MEDS: SENOKOT S TAB PO SCH (07:40)
[2020-06-09] MEDS: FERROUS GLUCONATE 324 MG TAB PO SCH (07:40)
[2020-06-09] MEDS: allopurinoL 300 MG TAB PO SCH (07:40)
[2020-06-09] MEDS: SUCRALFATE 1 GM TAB PO SCH ×3 (07:40→16:30)
[2020-06-09] MEDS: METOPROLOL SUCC (TopROL XL) 50MG **XL** TAB PO SCH (07:41)
[2020-06-09] MEDS: POTASSIUM CHLORIDE 10 MEQ SR TABLET PO SCH (07:41)
[2020-06-09] MEDS: HEPARIN SOD (PORCINE) 5000UNITS/ML 1ML VIAL/SYRINGE SC SCH (07:41)
[2020-06-09] MEDS ORDERED: ALDA25TA2 PO (08:44)
[2020-06-09] MEDS ORDERED: PANT40TA29 PO (08:44)
[2020-06-09] MEDS ORDERED: FERR32TA PO (08:44)
[2020-06-09] MEDS ORDERED: TORS100T PO (08:44)
[2020-06-09] MEDS ORDERED: SENN-52 PO (08:44)
[2020-06-09] MEDS ORDERED: POTA20TA6 PO (08:44)
[2020-06-09] MEDS ORDERED: SUCR1TA PO (08:44)
[2020-06-09] MEDS ORDERED: POTASSIUM CHLORIDE 10 MEQ SR TABLET PO SCH (09:00)
[2020-06-09] MEDS ORDERED: DARBEPOETIN 100 MCG/0.5 ML *NON-DIALYSIS* SYRINGE (J0881) SC SCH (09:00)
--- NOTE | 2020-06-09 09:25 | IPN ---
DATE: 06/07/2020 SUBJECTIVE: The patient is seen and examined this morning sitting out of bed to the chair, continues to diurese satisfactorily with stable renal function and denies any complaints this morning. He denies shortness of breath and he reports improving leg edema. His daily weights are downtrending. PHYSICAL EXAMINATION: VITAL SIGNS: Temperature 98.6, pulse 87, respiratory rate is 19, blood pressure is 122/62, saturating 96% on room air. Intake yesterday was 1 liter, urine output was 2650, net negative 1.5 liters, weight on the bed scale today is 146 kg. GENERAL: The patient is seen today out of bed to the chair, awake, alert, oriented, comfortable and in no apparent distress. HEENT: Extraocular muscles are intact. Ears, nose and throat are unremarkable. NECK: Supple. Jugular veins are mildly elevated. HEART: Heart sounds are regular S1 and S2. There is 2+ leg edema. LUNGS: Clear to auscultation but breath sounds are distant. GENITOURINARY: Haskins catheter is draining urine. ABDOMEN: Soft, obese and nontender. SKIN: Normal temperature and has some chronic stasis changes of the legs. EXTREMITIES: Improvement in leg edema, about 2+ bilaterally. LABORATORY DATA: White count is 4.9, hemoglobin is 8.6, platelets 103,000. Sodium 142, potassium 3.5, bicarbonate 30, BUN 88, creatinine 3.3, magnesium 2.3. INPATIENT MEDICATIONS: I stopped the potassium chloride and I started him on spironolactone 25 mg p.o. daily. He is receiving ferrous gluconate 324 mg p.o. daily. The remainder of the medications are unchanged from prior. PROBLEMS: 1. Acute on chronic decompensated right heart failure. The patient is diuresing satisfactorily and daily weights are down trending and renal function remains stable. He is on an oral fluid restriction. Continue IV Lasix and I added oral spironolactone. 2. Hypokalemia. He is requiring significant supplemental potassium repletion. I am starting him on spironolactone to augment diuresis for potassium conservation. 3. Anemia related to iron deficiency and CKD Stage IV. The patient received 750 mg of Injectafer on June 04 and I will re-dose him again shortly. He is on oral iron supplement as well and is also known to have heme positive stool and needs to follow-up with surgery. 4. Chronic left hydronephrosis, already been evaluated by Urology and not felt to need intervention due to the chronicity of the condition. 5. Hypertension, blood pressures are acceptable and no changes being made (with the exception of spironolactone addition). MTDD
--- NOTE | 2020-06-09 09:30 | IPN ---
DATE: 06/08/2020 SUBJECTIVE: Patient is seen and examined this morning sitting out of bed to the chair with legs elevated. He offers no complaints. Continues to diurese satisfactorily, but his daily weight has plateaued the past three days at 145. He is compliant with oral fluid restriction. His hemoglobin has down trended to 7.8 and he did have occult blood positive stools. I discussed with him regarding blood transfusion and starting Erythropoietin stimulating agent. He denies shortness of breath at rest. PHYSICAL EXAMINATION: VITALS: Temperature 98.5, pulse 81, respiratory rate 18, blood pressure 128/63, saturating 99% on room air. Intake yesterday was 1220. Urine output yesterday was 4 liters, net negative 2.8 liters. Weight in the bed scale today is 145.2 kg. GENERAL: Patient is seen sitting in the recliner, an elderly obese male, in no apparent distress. HEENT: Extraocular muscles intact. Tongue moist. Ear, nose, throat unremarkable. Jugular veins are elevated. HEART: Heart sounds are regular, S1, S2. There is 2+ leg edema. LUNGS: Lungs sounds are distant and diminished, but no overt crackles or rales. He is seen on room air. ABDOMEN: Significantly obese and nontender. There is some flank edema. There is a Haskins catheter in place, draining clear yellow urine. EXTREMITIES: Show 2+ edema that comes up to the knees. The thighs do not feel edematous. SKIN: Shows some pallor, and is warm and dry. PSYCHIATRIC: Appropriate mood and affect. LABORATORY DATA: White count 4.9, hemoglobin 7.8, platelets 99,000. Sodium 140, potassium 3.4, bicarbonate 30, BUN 90, creatinine 3.3. Magnesium 2.2. INPATIENT MEDICATIONS: Reviewed by myself. I ordered Aranesp 100 mcg subcutaneously tomorrow morning. He continues on Lasix 80 mg I.V. every 6 hours and on Spironolactone 25 mg p.o. daily. He received a dose of potassium chloride 40 mEq p.o. times one today. Remainder of medications are unchanged from prior. PROBLEMS: 1. MIRIAM on CKD stage 4 in the setting of decompensated right heart failure: He is tolerating diuresis very well with stable creatinine at 3.3 and making around 3 to 4 liters of urine a day. I would continue him at this time on Lasix 80 mg every 6 hour along with Spironolactone 25 mg daily. He has known left-sided hydronephrosis that has been evaluated by urology and not felt to need any intervention at present. 2. Acute on chronic decompensated right heart failure: He remains with ongoing moderate hypervolemia, continue oral fluid restriction, continue Lasix 80 mg every 6 hour, continue Spironolactone 25 mg daily. Volume status is steadily improving. 3. Hypokalemia: Continue Spironolactone and he did receive a dose of potassium chloride today as well. 4. Anemia: It is multifactorial, his fecal occult blood was positive. He was also iron deficient and he also has advanced chronic renal failure. He did receive a dose of I.V. Injectafer on 06/04/2020; the earliest he can be re-dosed is 06/11/2020. If his hemoglobin is less than 8 tomorrow, I plan to transfuse blood. I am also starting him on Aranesp. 5. Positive fecal occult blood test with down trending hemoglobin despite correction of hemodilution with aggressive diuresis and concomitant significant iron deficiency: Suspicion for GI bleed. Patient is on Protonix and Sucralfate. Further management is deferred to primary service. I see he is also receiving Heparin subcutaneously for DVT prophylaxis. I would plan to transfuse him tomorrow if his hemoglobin remains less than 8. I have discussed the same with the patient and he is agreeable. [facility]
[2020-06-09] MEDS ORDERED: POTA10TA17 PO (10:26)
--- NOTE | 2020-06-09 13:02 | DS.PDOC ---
Discharge Summary General Date of Admission Jun 01, 2020 at 18:25 Date of Discharge 06/09/20 Attending Physician: Cecilia Rosario MD Discharge Summary HPI: Patient is an 79 year old morbidly obese M with PMH of CKD stage 3-4 (baseline creatinine of 2.8), systolic chf, lymphedema, hypothyroidism, hypertension, hld, dm presented to the ED for abnormal labs. He had gone to see PMD for worsening SOB for 1 month which really got worse for the past 1 week so that he could hardly make it to the bathroom. Lab work with PMD showed a Hb of 7.2 so was called and instructed to come to the ED. Patient's last Hb in february was 9.4 and his hb with Dr. Meng was 11.2 in December with a creatinine of 2.5 and GFR of 35. He was last seen at the nephrology office in December this year and has a follow up appointment later this month 06/11/20. He does report some weight gain but does not know how much as he does not measure himself. He denies any cough or phlegm. Denies any overt bleeding from anywhere. No h/o love or hematochezia. No abdominal pain nausea or vomiting or diarrhea. He is unable to lay down in bed and needs several pillows. Hgb in the ED was 7.2 again and he was admitted for symptomatic anemia. He was also in Afib with rate about 90 to 110. HOSPITAL COURSE: Patient was aggressively diuresed this admission, maintaining neg 2 liters daily while on high dose lasix, spironolactone. Nephrology consulted and followed. Surgery evaluated patient, started carafate ACHS. He received a total of 3 units PRBC and H/H was watched closely due to heme + stools. He was started on iron supplementation, additional treatments per nephrology. On 06/09/20 decision was made to discharge home with close follow up by nephrology, surgery and PCP. He is to receive another unit PRBC prior to discharge for H/H of 8.1/27.5. He is currently asymptomatic. Home services referral was signed. It is recommended that he has repeat CBC done on next visit with PCP within 1-2 weeks. He will be discharged with spironolactone, torsemide now BID and metolazone still weekly per nephrology. He denies any chest pain, shortness of breath, n/v/d. PAST MEDICAL HISTORY: Morbid obesity Hypertension. 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 Meng. NIDDM2. LUTS History of prostate cancer status post radiation about 10-15 years ago. Hyperlipidemia. Hypothyroidism. Chronic venous insufficiency and lymphedema, follows with Dr. Phipps. Gout. Kidney stones. History of radiation cystitis H/o Left ureteral stricture s/p dilatation SURGICAL HISTORY: Bladder cauterization in 04/2013, cataracts 2014, right hemicolectomy 2016 with ileocolonic anastomosis for Cecal polyp with high- grade dysplasia. Kidney stone surgery with what sounds like ureteroscopy in 1972. CYSTOSCOPY WITH LEFT RETROGRADE PYLELOGRAM, LEFT [id number] CYSTOSCOPY WITH STENT REMOVAL 02/12/2019 Umbilical hernia, incarcerated repaired 2016 Left ureteral stricture dilatation PAST FAMILY HISTORY: Father had kidney cancer and heart disease. Mother had cancer, he is unsure which type, diabetes. 1 brother with Alzheimers. SOCIAL HISTORY: Smoker: former Smoker Alcohol: occationally Drugs: denies ALLERGIES: Please see below. DISCHARGE MEDICATIONS: Please see below. PHYSICAL EXAMINATION: VS: Please see below GENERAL: NAD, resting at bedside chair, AAOX3 HEENT: Unremarkable. LUNGS: CTAB, no W/R/R CVS: S1S2 , no M/R/G ABDOMEN: Obese, nontender, no masses. : barriga catheter in place EXTREMITIES: 2+ peripheral edema, improving gradually. pulses + in all e xtremities, good capillary refill. PSYCH: Mood and affect wnl LABORATORY/MICROBIOLOGY: Please see below. ASSESSMENT/PLAN: #Acute on chronic decompensated cor pulmonale/congestive heart failure, preserved ejection fraction. Neg 1.5 L/24 hours. Renal function remains stable with this diuresis. Recommend c/w torsemide 50 mg BID, spironolactone, BB at discharge. F/u with sausage stringer if needed as o/p. #Hypokalemia likely 2/2 to diuresis. Replaced today. Suggested to continue only on 10 mEq KCl daily by nephrology after discharge. Recommend close follow up as outpatient. #GABINO, cannot r/o GI bleed. Heme + stool this hospital stay. H/H 8.1/7.8, received 3 units PRBC this hospital stay. Surgery did not plan on repeat endoscopy. Plan: To receive 1 additional unit today prior to discharge, IV iron later this week as o/p per nephrology, c/w oral iron supplement. Will need close f/u with surgery after discharge and will have this appointment arranged after discharge. F/u CBC is recommended on next f/u with PCP. C/w carafate ACHS. # Stage IV chronic kidney disease. Hx of nonobstructive left hydronephrosis, previous failure of stenting in 2019. cr near baseline. This has been followed by urology. He is also followed closely by Nephrology. On metalazone weekly, torsemide and spironolactone. #History of prostate cancer. Followed by urology. #Diabetes mellitus. BS controlled. C/w current treatment, consistent carb diet. #Hypothyroidism C/w current tx DISPOSITION: Discharging home today with f/u with PCP, nephrology and GI services. Recommending CBC on next appointment with PCP. TIME SPENT ON DISCHARGE: Greater than 30 minutes. Vital Signs/I&Os Vital Signs Date Time Temp Pulse Resp B/P (MAP) Pulse Ox O2 Delivery O2 Flow Rate FiO2 06/09/20 11:54 97.9 108 18 142/71 (94) 98 Room Air I&O- Last 24 Hours up to 6 AM 06/09/20 06:00 Intake Total 1200 ml Output Total 2950 ml Balance -1750 ml Laboratory Data Labs 24H Laboratory Tests 2 06/08/20 17:10: Bedside Glucose (Misc Panel) 134H 06/09/20 05:31: Nucleated Red Blood Cells % (auto) 0.0, Anion Gap 6L, Glomerular Filtration Rate 18.8L, Calcium Level 8.6L, Total Bilirubin 1.1H, Aspartate Amino Transf (AST/SGOT) 28, Alanine Aminotransferase (ALT/SGPT) 19, Alkaline Phosphatase 81, Total Protein 8.5H, Albumin 2.9L, Albumin/Globulin Ratio 0.5 CBC/BMP Laboratory Tests 06/09/20 05:31 FSBS Laboratory Tests Test 06/08/20 17:10 Range/Units Bedside Glucose (Misc Panel) 134 83-110 MG/DL Microbiology Microbiology 06/06/20 Stool Occult Blood (SHER) - Final, Complete Discharge Medications Scheduled Allopurinol (Zyloprim) 300 Mg Tab, 300 MG PO DAILY, (Reported) Ferrous Gluconate (Ferrous Gluconate) 324 Mg Tablet, 324 MG PO DAILY Glipizide (Glipizide ER) 2.5 Mg Tab.er.24, 2.5 MG PO DAILY, (Reported) Levothyroxine Sodium (Levothyroxine Sodium) 175 Mcg Tab, 175 MCG PO DAILY, (Reported) Metolazone (Metolazone) 2.5 Mg Tab, 2.5 MG PO QWEEK, (Reported) MONDAYS Metoprolol Succinate (Metoprolol Succinate) 50 Mg Tab, 50 MG PO DAILY, (Reported) Pantoprazole Sodium (Pantoprazole Sodium) 40 Mg Tablet.dr, 40 MG PO DAILY Potassium Chloride (Potassium Chloride) 10 Meq Tab.er.prt, 1 TAB PO DAILY Sennosides/Docusate Sodium (Senna Plus Tablet) 1 Each Tablet, 1 TAB PO BID Spironolactone (Aldactone) 25 Mg Tablet, 25 MG PO DAILY@1400 Sucralfate (Sucralfate) 1 Gm Tablet, 1 GM PO ACHS Tamsulosin HCl (Flomax) 0.4 Mg Capsule, 0.4 MG PO QPM, (Reported) Torsemide (Torsemide) 100 Mg Tablet, 50 MG PO BID Vit A/Vit C/Vit E/Zinc/Copper (Icaps Areds Formula Dr Tablet) 1 Each Tablet.dr, 1 TAB PO DAILY, (Reported) Allergies Coded Allergies: Oyster (Verified Allergy, Intermediate, HIVES, 06/01/20) Cecilia Rosario MD Jun 09, 2020 13:02
[2020-06-09] MEDS: SPIRONOLACTONE 25 MG TAB PO SCH (13:18)
[2020-06-09] MEDS: ACETAMINOPHEN TAB 650MG DOSE (2X325MG) PO PRN (14:53)
--- NOTE | 2020-06-11 08:56 | IPN ---
DATE: 06/09/2020 SUBJECTIVE: Patient seen and examined this morning at the bedside. He is discharge pending and I discussed discharge diuretics with his Hospitalist Dr. Rosario and also advised that he would be transfused 1 more unit of PRBCs prior to discharge. He already has an appointment scheduled with Dr. Meng on Sunday the . He denies any shortness of breath at rest and tells me he has been walking around the room with minimal dyspnea on exertion. PHYSICAL EXAMINATION: Temperature 97.9, pulse 88, respiratory rate 18, bp 130/68, saturating 95% on room air. Intake yesterday was 1 liter, urine output yesterday was 2525. Weight on the bed scale today was inaccurately recorded. General: Patient is seen sitting out of bed to the chair, elderly male, obese, in no apparent distress. HEENT: Extraocular muscles are intact. Tongue is moist. Neck: Supple. Jugular veins were not elevated while he was sitting upright. Heart: Sounds were regular, S1 and S2. There is still 1 to 2+ leg edema bilaterally that comes up to the knees. Lungs: Clear to auscultation bilaterally, no crackles or rales. Abdomen: Obese, soft and nontender. His Haskins catheter is still in place. Psychiatric: Appropriate mood and affect. LABORATORY DATA: White count 5.4, hemoglobin 8.1, platelets 104. Sodium 139, potassium 3.4, bicarbonate 30, BUN 90, creatinine 3.3. INPATIENT MEDICATIONS: Reviewed by myself and I note: * The Hospitalist Service decreased the dose of I.V. Lasix yesterday. * He received a dose of Aranesp 100 mcg subcutaneously today. The remainder of medications are unchanged from prior. PROBLEMS/PLAN: 1. MIRIAM on CKD stage 4 in the setting of decompensated right heart failure: His renal function tolerated diuresis on this admission very well with stable creatinine at 3.3 and making around 3-4 liters of urine a day. He can be discharged on torsemide 50 mg twice daily, spironolactone 25 mg daily and metolazone once a week. I advised him to continue with 1500 mL fluid restriction and he has an appointment in the nephrology office in 2 days. 2. Acute on chronic congestive heart failure: His fluid status has improved over the course of this admission. Discharge diuretics have been discussed with the Hospitalist Service and the patient and he is advised to continue oral fluid restriction. He tells me he does not have a scale to weigh himself with at home. He will follow up in the office in 2 days. 3. Hypokalemia: Spironolactone was started on this admission 25 mg daily. He is being discharged as well with potassium chloride 10 mEq once daily and he needs to follow up in the nephrology office for a close watch on his electrolytes in view of diuretics and advanced chronic kidney disease. 4. Anemia: It is multifactorial and related to iron deficiency, chronic renal failure and also fecal occult blood positivity. His hemoglobin today is 8.1. I advised to transfuse 1 more unit of PRBCs prior to discharge. He also received a dose of Aranesp today prior to discharge and we will set him up for a second dose of Injectafer as an outpatient. He should follow up with his primary care provider in terms of the occult blood positivity. Discharge recommendations as above discussed with Hospitalist Service. Patient is acceptable for discharge from a nephrology point of view. CARIN
== END 2020-06-09 18:09 | disposition home health service (06) | DRG 291 ==
LOC: M ED 14:07 → M ED INP 18:25 → ENRESERV 19:44 → M PCU 21:18
PROVIDERS: ADMIT Internal Medicine Nephrology; ATTEND Internal Medicine
PROC: 30233N1 Transfusion of Nonautologous Red Blood Cells into Peripheral Vein, Percutaneous Approach (ICD-10-PCS; principal; 2020-06-01)
DX: I13.0 Hypertensive heart and chronic kidney disease with heart failure and stage 1 through stage 4 chronic kidney disease, or unspecified chronic kidney disease (principal); I50.33 Acute on chronic diastolic (congestive) heart failure; N18.4 Chronic kidney disease, stage 4 (severe); I48.20 Chronic atrial fibrillation, unspecified; N17.9 Acute kidney failure, unspecified; K92.2 Gastrointestinal hemorrhage, unspecified; N13.30 Unspecified hydronephrosis; Z68.43 Body mass index [BMI] 50.0-59.9, adult; D50.9 Iron deficiency anemia, unspecified; E66.01 Morbid (severe) obesity due to excess calories; I89.0 Lymphedema, not elsewhere classified; E03.9 Hypothyroidism, unspecified; M10.30 Gout due to renal impairment, unspecified site; E78.5 Hyperlipidemia, unspecified; E11.22 Type 2 diabetes mellitus with diabetic chronic kidney disease; I27.20 Pulmonary hypertension, unspecified; I50.813 Acute on chronic right heart failure; D63.1 Anemia in chronic kidney disease; R32 Unspecified urinary incontinence; Z79.82 Long term (current) use of aspirin; Z79.84 Long term (current) use of oral hypoglycemic drugs; Z91.013 Allergy to seafood; Z85.46 Personal history of malignant neoplasm of prostate; Z98.49 Cataract extraction status, unspecified eye; Z87.891 Personal history of nicotine dependence; Z86.010 Personal history of colon polyps; Z92.3 Personal history of irradiation; Z90.49 Acquired absence of other specified parts of digestive tract; Z98.0 Intestinal bypass and anastomosis status; Z20.828 Contact with and (suspected) exposure to other viral communicable diseases

== ENCOUNTER → 2020-06-01 | Outpatient (CLI) | payer MEDICARE ==
[2020-06-01 13:05] LABS: BASO % 0.4 % (0.0-1.0); EOS # 0.3 10^3/uL (0.0-0.5); EOS % 6.6 % (0.0-3.0); HEMATOCRIT 26.2 % (42.0-52.0); HEMOGLOBIN 7.5 g/dl (13.5-17.5); LYMPH # 0.3 10^3/uL (1.5-5.0); LYMPH % 6.8 % (24.0-44.0); MEAN CORPUSCULAR HEMOGLOBIN 29.6 pg (27.0-33.0); MEAN CORPUSCULAR HGB CONC 28.6 g/dl (32.0-36.5); MEAN CORPUSCULAR VOLUME 103.6 fl (80.0-96.0); MONO # 0.4 10^3/uL (0.0-0.8); MONO % 7.8 % (0.0-5.0); NEUTROPHILS # 3.7 10^3/uL (1.5-8.5); PLATELET COUNT, AUTOMATED 126 10^3/uL (150-450); RED BLOOD COUNT 2.53 10^6/uL (4.30-6.10); WHITE BLOOD COUNT 4.7 10^3/uL (4.0-10.0)
[2020-06-01 13:29] LABS: CALCIUM LEVEL 9.1 MG/DL (8.8-10.2); CREATININE FOR GFR 3.45 MG/DL (0.70-1.30); GLOMERULAR FILTRATION RATE 18.3 (>35); POTASSIUM SERUM 3.9 MEQ/L (3.5-5.1)
== END ==
LOC: M WUC 10:39
PROVIDERS: ATTEND Family Medicine
DX: N18.4 Chronic kidney disease, stage 4 (severe) (principal)

== ENCOUNTER → 2020-06-11 | Outpatient (REF) | payer MEDICARE ==
[~2020-06-11] MED LIST changes: +ALDA25TA2 PO; +ASPI1TAB8 PO; +FERR32TA PO; +PANT40TA29 PO; +POTA10TA17 PO; +POTA20TA6 PO; +SENN-52 PO; +SUCR1TA PO
[2020-06-11 18:18] LABS: PERCENT SATURATION 19.3 % (19.7-50.0)
== END ==
LOC: M LAB REF 16:51
PROVIDERS: ATTEND Internal Medicine Nephrology
DX: N18.9 Chronic kidney disease, unspecified (principal); D63.1 Anemia in chronic kidney disease

== ENCOUNTER → 2020-06-18 | Outpatient (CLI) | payer MEDICARE ==
[2020-06-18 15:48] LABS: BASO % 0.5 % (0.0-1.0); EOS # 0.3 10^3/uL (0.0-0.5); HEMATOCRIT 29.3 % (42.0-52.0); HEMOGLOBIN 8.5 g/dl (13.5-17.5); LYMPH # 0.3 10^3/uL (1.5-5.0); LYMPH % 7.2 % (24.0-44.0); MEAN CORPUSCULAR HEMOGLOBIN 29.9 pg (27.0-33.0); MEAN CORPUSCULAR VOLUME 103.2 fl (80.0-96.0); MONO # 0.4 10^3/uL (0.0-0.8); MONO % 9.2 % (0.0-5.0); NEUTROPHILS # 3.2 10^3/uL (1.5-8.5); NEUTROPHILS % 76.4 % (36.0-66.0); PLATELET COUNT, AUTOMATED 106 10^3/uL (150-450); RED BLOOD COUNT 2.84 10^6/uL (4.30-6.10); WHITE BLOOD COUNT 4.1 10^3/uL (4.0-10.0)
[2020-06-18 16:48] LABS: CALCIUM LEVEL 8.6 MG/DL (8.8-10.2); CREATININE FOR GFR 3.51 MG/DL (0.70-1.30); GLOMERULAR FILTRATION RATE 17.9 (>35); POTASSIUM SERUM 4.3 MEQ/L (3.5-5.1)
== END ==
LOC: M WUC 13:46
PROVIDERS: ATTEND Family Medicine
DX: D50.9 Iron deficiency anemia, unspecified (principal); E87.6 Hypokalemia; N18.4 Chronic kidney disease, stage 4 (severe); Z85.46 Personal history of malignant neoplasm of prostate

== ENCOUNTER → 2020-06-18 | Outpatient (CLI) | payer MEDICARE | LOC: M WUC 13:57 | PROVIDERS: ATTEND Nurse Practitioner Women's Health | DX: Z85.46 Personal history of malignant neoplasm of prostate (principal) ==

== ENCOUNTER 2020-06-24 13:23 | Outpatient (CLI) | payer MEDICARE ==
[~2020-06-24] VITALS: Ht 177.8 cm; Wt 149.2 kg
[2020-06-24] MEDS ORDERED: ALBUTEROL SULFATE 2.5 MG/0.5 ML INH NEB SOLN INH PRN (13:30)
[2020-06-24] MEDS ORDERED: FERRIC CARBOXYMALTOSE INJ 750 MG in NS 250 ML IV ONE (13:30)
[2020-06-24] MEDS ORDERED: EPINEPHrine INJ 1 MG/ML 1ML AMP IM PRN (13:30)
[2020-06-24] MEDS ORDERED: diphenhydrAMINE 50MG/ML VIAL (J1200) IV PRN (13:30)
[2020-06-24] MEDS ORDERED: methylPREDNISolone 125MG 2ML VIAL IV PRN (13:30)
[2020-06-24] MEDS ORDERED: NS 1,000 ML IV SCH (13:30)
[2020-06-24 13:47] VITALS: BP 137/73
[2020-06-24 15:32] VITALS: BP 141/80
== END 2020-06-24 15:35 | disposition home or self-care (01) ==
LOC: M INFU 13:23
PROVIDERS: ATTEND Internal Medicine Nephrology
DX: N18.9 Chronic kidney disease, unspecified (principal); D63.1 Anemia in chronic kidney disease
CPT/HCPCS: 96365; J1439

== ENCOUNTER 2020-07-01 13:09 | Outpatient (CLI) | payer MEDICARE ==
[~2020-07-01] VITALS: Ht 177.8 cm; Wt 149.0 kg
[~2020-07-01 13:09] MED LIST changes: +ALBUTEROL SULFATE 2.5 MG/0.5 ML INH NEB SOLN INH PRN; +EPINEPHrine INJ 1 MG/ML 1ML AMP IM PRN; +diphenhydrAMINE 50MG/ML VIAL (J1200) IV PRN; +methylPREDNISolone 125MG 2ML VIAL IV PRN
[2020-07-01] MEDS ORDERED: FERRIC CARBOXYMALTOSE INJ 750 MG in NS 250 ML IV ONE (13:30)
[2020-07-01] MEDS ORDERED: NS 1,000 ML IV SCH (13:30)
[2020-07-01 13:53] VITALS: BP 94/55
[2020-07-01 15:32] VITALS: BP 121/66
== END 2020-07-01 15:25 | disposition home or self-care (01) ==
LOC: M INFU 13:09
PROVIDERS: ATTEND Internal Medicine Nephrology
DX: N18.9 Chronic kidney disease, unspecified (principal); D63.1 Anemia in chronic kidney disease; Z91.018 Allergy to other foods
CPT/HCPCS: 96365; J1439

== ENCOUNTER → 2020-07-27 | Outpatient (CLI) | payer MEDICARE ==
[~2020-07-27] MED LIST changes: -ALBUTEROL SULFATE 2.5 MG/0.5 ML INH NEB SOLN INH PRN; +D3 22000 PO; -EPINEPHrine INJ 1 MG/ML 1ML AMP IM PRN; -diphenhydrAMINE 50MG/ML VIAL (J1200) IV PRN; -methylPREDNISolone 125MG 2ML VIAL IV PRN; +vitamin d
== END ==
LOC: M LABSMTC 12:22
PROVIDERS: ATTEND Anesthesiology
DX: Z01.812 Encounter for preprocedural laboratory examination (principal); Z20.822 Contact with and (suspected) exposure to COVID-19

== ENCOUNTER → 2020-07-31 | Outpatient (CLI) | payer MEDICARE | LOC: M LABSMTC 10:15 | PROVIDERS: ATTEND Anesthesiology | DX: Z01.812 Encounter for preprocedural laboratory examination (principal); Z20.822 Contact with and (suspected) exposure to COVID-19 ==

== ENCOUNTER 2020-08-05 10:00 | Inpatient (IN) | payer MEDICARE ==
[2020-08-05] VITALS (11 sets, daily range): BP systolic 120–151; BP diastolic 63–101
[~2020-08-05] VITALS: Ht 172.7 cm; Wt 143.0 kg
[~2020-08-05 10:00] MED LIST changes: -D3 22000 PO; +NS 1,000 ML IV ONE; +VITA200030 PO
--- OUTSIDE RECORDS SUMMARY | 2020-08-05 10:09 | CCD ---
Author Author [facility] Organization [facility] Address Unknown Phone Unavailable Care Team Providers Care Ophthalmic Surgical Assistant Name Role Phone Nicole Garrett Unavailable PROBLEMS Type Condition ICD9-CM Code [id number] Code Onset Dates Condition S tatus SNOMED Code Notes Problem Other specified disorders of kidney and ureter N28 .89 Active 475765779 Problem Personal history of malignant neoplasm of prostate Z85.46 Active 099676788 Problem CKD (chronic kidney disease), stage 4 (severe) N18 .4 Active 966606455 Problem S/P right hemicolectomy Z90.49 Active 10754848 6 Problem Anticoagulant long-term use Z79.01 Active 7111 93020 Problem Other specified hypothyroidism E03.8 Active 4 8375199 Problem Type 2 diabetes mellitus with diabetic chronic kidney disease E11.22 Active 82319184 Problem Benign prostatic hyperplasia , unspecified whether lower urinary tract symptoms present N40.0 Active 488061163 Problem Hepatic cirrhosis, unspecified hepatic cirrhosis type K74.60 Active 85236286 Problem Hydroureter N13.4 Active 51231741 Problem Prostate cancer C61 Active 549912045 Problem Iron deficiency E61.1 Active 04743626 Problem Atrial fibrillation, unspecified type I48.91 Ac tive 13587758 Problem Chronic venous hypertension (idiopathic) with ulcer of left lower extremity I87.312 Active 017103931 Problem Non-pressure chronic ulcer o f other part of right lower leg with fat layer exposed L97.812 Active 529333732 Problem Hypothyroidism, unspecified type E03.9 Active 14717444 Problem Chronic venous hypertension (idiopathic) with ulcer of right lower extremity I87.311 Active 096528503 Problem Influenza vaccination declined Z28.21 Active 3 93120061 Problem Dyslipidemia E78.5 Active 980241080 Problem 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 Active 266566227 Problem Seborrheic dermatitis L21.9 Active 59154415 Problem Type 2 diabetes mellitus with other circulatory complicati on E11.59 Active 577010587 Problem Essential hypertension I10 Active 43832522 Problem Urge incontinence N39.41 Active 58326761 Problem Iron deficiency anemia, unspecified iron deficiency an emia type D50.9 Active 78890374 Problem Lymphedema I89.0 Active 451898650 Problem Benign prostatic hyperplasia with lower urinary tract symptoms N40.1 Active 579324246447530 Problem Gout, unspecified cause, unspecified chronicity, unspecified site M10.9 Active 06938764 Problem Non-pressure chronic ulcer o f other part of left lower leg with fat layer exposed L97.822 Active 289531757 Problem Other iron deficiency anemia D50.8 Active 875 49974 Problem Chronic kidney disease, stage 4 (severe) N18.4 Active 985028787 Problem Acute on chronic congestive heart failure, unspecified heart failure type I50.9 Active 427742544 Problem Stage 4 chronic kidney disease N18.4 Active 4 74735259 ALLERGIES Allergen (clinical drug ingredient) Drug/Non Drug Allergy do cumented on EMR Reaction Allergy Type Onset Date Status oysters Hives Non Drug Allergy Active ENCOUNTERS from 1938 to 2020-07-04 Encounter Location Date Provider Diagnosis [facility] Urology [address] [place] [address] Jun Nicole Garrett IMMUNIZATIONS Vaccine Route Administration Date Status Influenza (18 yrs & older) Flublok Unknown Jul 29, 2018 Refused Influenza (High Dose 65 & up) Unknown Jul 05, 2017 Re fused Pneumococcal Adult 0.5mL (Pneumovax 23) IM Intramuscular Mar Administered TDAP 0.5mL (Boostrix) IM Intramuscular Mar 27, 2018 Administe red Pneumococcal 0.5mL (Prevnar 13) IM Intramuscular Mar 27, 2018 Administered Influenza (6mo & up) Fluzone IM Intramuscular May 15, 2016 Ad ministered Influenza (6mo & up) Fluzone Unknown October 14, 2015 Ref used Influenza (6mo & up) Fluzone Unknown October 12, 2014 Ref used SOCIAL HISTORY Tobacco Use: Social History Observation Description Date Details (start date - stop date) Former Smoker Sex Assigned At : Social History Observation Description Sex Assigned At Unknown Education: Question Answer Notes Level of Education: High School Audit Question Answer Notes Total Score: 0 Interpretation: Alcohol Education Language: Question Answer Notes Languages spoken: Finnish Jehovah'S Witness: Question Answer Notes Jehovah'S Witness 03 Jainism Drug and Alcohol Question Answer Notes Total Score: 0 Interpretation: No problems reported Alcohol Screening: Question Answer Notes Did you have a drink containing alcohol in the past year? No Points 0 Interpretation Negative BMI Care Goal Follow-Up Question Answer Notes Above Normal BMI Follow-Up Dietary management educatio n, guidance, and counseling Tobacco Use: Question Answer Notes Are you a: former smoker How long has it been since you last smoked? > 10 years REASON FOR REFERRAL No Information VITAL SIGNS No information MEDICATIONS Medication SIG (Take, Route, Frequency, Duration) Notes Start Da te End Date Status Torsemide 100 MG 1/2 tablet Orally bid Active Metolazone 2.5 MG 1 tablet Orally on Sunday Active Metoprolol Succinate ER 50 MG 1 tablet Orally Once a day for 90 Active Spironolactone 25 MG 1 tablet Orally 2 pm Active Tamsulosin HCl 0.4 MG 1 capsule Orally Once a day for 90 days Jun, Active OneTouch Test - as directed In Vitro E11.22 check daily for 30 d ay(s) Aug, Active ICaps Plus 1tab Orally daily for 30 day(s) Active Stool Softener Laxative 8.6-50 MG 1 tab Orally bid Active Levothyroxine Sodium 175 MCG 1 tablet on an empty stom ach in the morning Orally Once a day for 90 day(s) Active Potassium Chloride ER 10 MEQ 1 tablet with food Orally Once a day Active Sucralfate 1 GM 1 tablet on an empty stomach Orally with meals a nd before bed Active Protonix 40 MG 1 tablet Orally Daily Active Baby Aspirin 81 MG 1 tablet Orally Once a day for 30 day(s) Not-Taking Flomax 0.4 MG 1 capsule 30 minutes after t he same meal each day Orally Once a day for 90 days Active GlipiZIDE ER 2.5 MG 1 tablet with breakfast Orally Once a day for 90 days Active Ferrous Gluconate 324 (38 Fe) MG 1 tab Orally Daily Active Vitamin D3 50 MCG (2000 UT) 1 capsule Orally Once a day Active Glucometer E11.9 check sugars once a day for 30 day(s) Jul, Active Allopurinol 300 MG 1 tablet Orally Once a day Active PROCEDURES No Information RESULTS No Results REASON FOR VISIT Refill MEDICAL (GENERAL) HISTORY Type Description Date Medical History CKDIV: Chronic kidney diseas e, meds from nephro include torsemide, vitamin B12, with furosemide and lisinopril and spironolactone recently stopped by the shipping assistant; November 2017 switched by nephrology to torsemide + metolazone Medical History A-fib: followed by Dr. Barrios, on ASA only because of history of bleed so was taken off Pradaxa Medical History hypertension: metoprolol by PCP, other medications are being managed by nephrology Medical History type II diabetes: A1c was 6. 21 Nov 2017, off meds for "last few years" as of 2017. 2019 was 7.1-->6.8-->7.0 Medical History LUTs, s/p prostate cancer wi radiation treatment, on flomax by PCP, follows with urology Medical History History of colectomy for col on cancer, GI is Dr. Holly, on oral iron, once a day, just saw him Aug 2017, denies recent bleeds Medical History hyperlipidemia on lovastatin by PCP Medical History hypothyroidism stable on levothyroxine b y PCP Medical History Chronic venous insufficiency , treated by physical therapy at [facility] with 3x/wk lower extremity wraps November 2017, wound care with Dr. Phipps, as of 03/27/18 the legs were much improved Medical History Gout, on allopurinol, last g out flare was "years ago", prescribed by PCP Chad Medical History obesity Medical History kidney stones Medical History Prostate Cancer (as above) Surgical History Prostate Biopsy Surgical History Cauterization of bladder 04/2013 Surgical History partial colon resection 2016 Surgical History cataracts 2014 Surgical History cystoscopy with left retrograde pylelogr am, left ureterosocpe 11/2018 Surgical History cystoscopy with stent removal 02/12/2019 Hospitalization History surgery related Hospitalization History [facility] - hematuria 09/2018 Hospitalization History [facility] 12/22/18-12/25/18 Hospitalization History Symptomatic Anemia - [facility] 05/31-05/23 Goals Section No Information Health Concerns No Information MEDICAL EQUIPMENT No Information MENTAL STATUS No Information FUNCTIONAL STATUS No Information ASSESSMENTS No Information PLAN OF TREATMENT Medication Medication Name Sig Start Date Stop Date Tamsulosin HCl 0.4 MG 1 capsule Orally Once a day for 90 days Jun, Flomax 0.4 MG 1 capsule 30 minutes after t he same meal each day Orally Once a day for 90 days Metoprolol Succinate ER 50 MG 1 tablet Orally Once a day for 90 Next Appt Details Provider Name:ElderRaymundo Ng, 2020-07-28 08:30:00 AM, [address] [place], [address], Provider Name:Rosalie Biswas, 2020-11-21 4 10:45:00 AM, [address], [place], [address], Insurance Providers Payer Name Payer Address Payer Phone Insured Name Patient Relati onship to Insured Coverage Start Date Coverage End Date [facility] [address] [address] [facility] [address] [phone] REBECCA JAUREGUI self
--- OUTSIDE RECORDS SUMMARY | 2020-08-05 10:09 | CCD ---
Author Author [facility] Organization [facility] Address Unknown Phone Unavailable Care Team Providers Care Marketing Operations Manager Name Role Phone Gabriel Ng Unavailable PROBLEMS Type Condition ICD9-CM Code [id number] Code Onset Dates Condition S tatus SNOMED Code Notes Problem Iron deficiency E61.1 Active 00488505 Problem CKD (chronic kidney disease), stage 4 (severe) N18 .4 Active 779393752 Problem Other specified disorders of kidney and ureter N28 .89 Active 559680707 Problem Anticoagulant long-term use Z79.01 Active 7161 46013 Problem Personal history of malignant neoplasm of prostate Z85.46 Active 985271567 Problem Type 2 diabetes mellitus with diabetic chronic kidney disease E11.22 Active 03985486 Problem S/P right hemicolectomy Z90.49 Active 30156350 6 Problem Hydroureter N13.4 Active 70266084 Problem Prostate cancer C61 Active 438380764 Problem 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 Active 203583032 Problem Atrial fibrillation, unspecified type I48.91 Ac tive 72836420 Problem Hepatic cirrhosis, unspecified hepatic cirrhosis type K74.60 Active 90855633 Problem Non-pressure chronic ulcer o f other part of right lower leg with fat layer exposed L97.812 Active 238708445 Problem Non-pressure chronic ulcer o f other part of left lower leg with fat layer exposed L97.822 Active 587075349 Problem Chronic venous hypertension (idiopathic) with ulcer of right lower extremity I87.311 Active 172326484 Problem Chronic venous hypertension (idiopathic) with ulcer of left lower extremity I87.312 Active 990436237 Problem Dyslipidemia E78.5 Active 579875252 Problem Hypothyroidism, unspecified type E03.9 Active 16477063 Problem Seborrheic dermatitis L21.9 Active 23108374 Problem Influenza vaccination declined Z28.21 Active 3 59139399 Problem Benign prostatic hyperplasia , unspecified whether lower urinary tract symptoms present N40.0 Active 950480959 Problem Type 2 diabetes mellitus with other circulatory complicati on E11.59 Active 082045537 Problem Essential hypertension I10 Active 54041874 Problem Stage 4 chronic kidney disease N18.4 Active 4 70833157 Problem Gout, unspecified cause, unspecified chronicity, unspecified site M10.9 Active 51089488 Problem Iron deficiency anemia, unspecified iron deficiency an emia type D50.9 Active 12720701 Problem Other specified hypothyroidism E03.8 Active 4 0832558 Problem Lymphedema I89.0 Active 697369642 Problem Urge incontinence N39.41 Active 27714922 Problem Other iron deficiency anemia D50.8 Active 875 75177 Problem Chronic kidney disease, stage 4 (severe) N18.4 Active 631306769 Problem Acute on chronic congestive heart failure, unspecified heart failure type I50.9 Active 135714044 ALLERGIES Allergen (clinical drug ingredient) Drug/Non Drug Allergy do cumented on EMR Reaction Allergy Type Onset Date Status oysters Hives Non Drug Allergy Active ENCOUNTERS from 1938 to 2020-07-01 Encounter Location Date Provider Diagnosis [facility] [address] [place] [address] Jun, Gabriel Ng Acute on chronic congestive heart failur e, unspecified heart failure type I50.9 ; Stage 4 chronic kidney disease N18.4 ; Iron deficiency anemia, unspecified iron deficiency anemia type D50.9 and Atrial fibrillation, unspecified type I48.91 IMMUNIZATIONS Vaccine Route Administration Date Status Pneumococcal Adult 0.5mL (Pneumovax 23) IM Intramuscular Mar Administered Influenza (18 yrs & older) Flublok Unknown Jul 29, 2018 Refused TDAP 0.5mL (Boostrix) IM Intramuscular Mar 27, 2018 Administe red Influenza (High Dose 65 & up) Unknown Jul 05, 2017 Re fused Pneumococcal 0.5mL (Prevnar 13) IM Intramuscular Mar [...] Education Language: Question Answer Notes Languages spoken: Polish Taoism: Question Answer Notes Taoism 03 Sabianist Drug and Alcohol Question Answer Notes Total [...] REASON FOR REFERRAL No Information VITAL SIGNS Weight 327.8 lbs Jun, Height 70 in Jun, BMI 47.03 kg/m2 Jun, Heart Rate 111 /min Jun, Respiratory Rate 20 /min Jun, Temperature 97.6 degrees Fahrenheit Jun, Oximetry 96 Jun, Blood pressure systolic 129 mm Hg Jun, Blood pressure diastolic 63 mm Hg Jun, MEDICATIONS Medication SIG (Take, Route, Frequency, Duration) Notes Start Da te End Date Status Flomax 0.4 MG 1 capsule 30 minutes after t he same meal each day Orally Once a day for 90 days May, Active Torsemide 100 MG 1/2 tablet Orally bid Active ICaps Plus 1tab Orally daily for 30 day(s) Active Spironolactone 25 MG 1 tablet Orally 2 pm Active Metoprolol Succinate ER 50 MG 1 tablet Orally Once a day for 90 Active OneTouch Test - as directed In Vitro E11.22 check daily for 30 d ay(s) Aug, Active Stool Softener Laxative 8.6-50 MG 1 [...] Once a day for 30 day(s) Not-Taking Allopurinol 300 MG 1 tablet Orally Once a day Active GlipiZIDE ER 2.5 MG 1 tablet with breakfast Orally Once a day for 90 days Active Ferrous Gluconate 324 (38 Fe) MG 1 tab Orally Daily Active Vitamin D3 50 MCG (1999 UT) 1 capsule Orally Once a day Active Glucometer E11.9 check sugars once a day for 30 day(s) Jul, Active Metolazone 2.5 MG 1 tablet Orally on Sunday Active PROCEDURES No Information RESULTS No Results REASON FOR VISIT 2 week MEDICAL (GENERAL) HISTORY Type Description Date Medical History CKDIV: Chronic kidney diseas e, meds from nephro include torsemide, vitamin B12, with furosemide and lisinopril and spironolactone recently stopped by the solution sales senior executive; November 2017 switched by nephrology to torsemide [...] 7.1-->6.8-->7.0 Medical History LUTs, s/p prostate cancer radiation treatment, on flomax by PCP, follows [...] 02/12/2019 Hospitalization History surgery related Hospitalization History [facility] - hematuria 09/2018 Hospitalization History [facility] 12/22/18-12/25/18 Hospitalization History Symptomatic Anemia - [facility] 05/31-05/23 Goals Section No Information Health Concerns No Information MEDICAL EQUIPMENT No Information MENTAL STATUS No Information FUNCTIONAL STATUS No Information ASSESSMENTS Encounter Date Diagnosis Assessment Notes Treatment Notes Treatm ent Clinical Notes Jun, Acute on chronic congestive heart failure, unspecified heart failure type (ICD-10 - I50.9) Recommend follow up with cardiology sooner than scheduled appt in Aug. If not continue current medications. Discussed monitoring fluid intake and salt. Patient and understood. Jun, Stage 4 chronic kidney disease (ICD-10 - N18.4) Continue to follow up with nephrology. Patient is going to see vascular to discuss placing vascular access for dialysis. Jun, Iron deficiency anemia, unsp ecified iron deficiency anemia type (ICD-10 - D50.9) Continue to follow up with nephrology. Going to start procrit injections. Repeat Hgb above 8 recently. Continue to monitor. Had r/s appt with Dr. Sapp to discuss rectal bleeding. Provided number for office so patient can call to make sure follows up. Jun, Atrial fibrillation, unspecified type (ICD-10 - I48.91) Continue to follow up with cardiology. PLAN OF TREATMENT Medication Medication Name Sig Start Date Stop Date Metoprolol Succinate ER 50 MG 1 tablet Orally Once a day for 90 Treatment Notes Assessment Notes Clinical Notes Acute on chronic congestive heart failure, unspecified heart failure type Recommend follow up with cardiology sooner than scheduled appt in Aug. If not continue current medications. Discussed monitoring fluid intake and salt. Patient and understood. Stage 4 chronic kidney disease Continue to follow up with nephrology. Patient is going to see vascular to discuss placing vascular access for dialysis. Iron deficiency anemia, unspecified iron deficiency anemia t ype Continue to follow up with nephrology. Going to start procrit injections. Repeat Hgb above 8 recently. Continue to monitor.Had r/s appt with Dr. Sapp to discuss rectal bleeding. Provided number for office so patient can call to make sure follows up. Atrial fibrillation, unspecified type Co ntinue to follow up with cardiology. Next Appt Details 1 mth Reason: Provider Name:Gabriel Ng, 2020-07-28 08:30:00 AM, [address], [place], [address], Provider Name:Rosalie Biswas, 2020-11-21 4 10:45:00 AM, [address], [place], [address], Insurance Providers Payer Name Payer Address Payer Phone Insured Name Patient Relati onship to Insured Coverage Start Date Coverage End Date [facility] [address] [address] [facility] [address] REBECCA JAUREGUI self
--- OUTSIDE RECORDS SUMMARY | 2020-08-05 10:09 | CCD | Continuity of Care Document ---
Author Author Jeffrey ACEVES MD Organization Unknown Address [address] [facility] [address] [place] [address] Phone [phone] Care Team Providers Care Record Cutter Name Role Phone Lanie Meng M.D. AUTM [phone] Gabriel Ng D.O. AUTM [phone] Problems Description No Active Problems Social History Type Date Description Comments Sex Unknown ETOH Use Denies alcohol use Tobacco Use Start: Unknown Non Smoker Recreational Drug Use Denies Drug Use Smoking Status Reviewed: 09/22/19 Non Smoker Allergies, Adverse Reactions, Alerts Description No Known Drug Allergies Medications Active Medications SIG Qnty Indications Ordering Provide r Date Sucralfate 1gm Tablets 2 Tabs Before Meals And AT QHS 60tabs Gerhard Aceves JR, MD 06/30/2020 Iron 325(65Fe) mg Tablets 1 by mouth bid Unknown Allopurinol 300mg Tablets 1 by mouth every day Unknown Metoprolol Succinate ER 50mg Tablets ER 24HR 1 by mouth every day 30tabs Unknown 0 000 Levothyroxine Sodium 175mg Tablets 1 by mouth every day Unknown Lovastatin 20mg Tablets hs Unknown Calcium 600 + D [id number] Tab lets once a day Unknown Torsemide 100mg Tablets 1 p[o daily Unknown Glipizide ER 2.5mg Tablets ER 24HR every day Unknown Metolazone 2.5mg Tablets 3X P er Week Unknown Ferrous Gluconate 324(38Fe) mg Tab lets 1 tab by mouth qd Unknown Pantoprazole Sodium 40mg Tablets D R 1 by mouth every day Unknown Spironolactone 25mg Tablets 1 Tab PO qd Unknown Flomax 0.4mg Capsules 1 Cap P O qd Unknown Vitamin D3 Ultra Potency 1.25mg ([address] Ut) Tablets take 1 tab by mouth qd Unknown Immunizations Description No Information Available Vital Signs Date Vital Result Comment 06/30/2020 1:25pm BP Systolic 108 mmHg BP Diastolic 56 mmHg Heart Rate 76 /min Height 69 inches 5'9" Weight 325.00 lb BMI (Body Mass Index) 48.0 kg/m2 [place] Body Weight 160 lb Weight 147.420 kg BSA (Body Surface Area) 2.54 m2 06/28/2020 3:25pm BP Systolic 139 mmHg BP Diastolic 69 mmHg Height 69 inches 5'9" Weight 300.00 lb Stated BMI (Body Mass Index) 44.3 kg/m2 [place] Body Weight 160 lb Weight 136.080 kg BSA (Body Surface Area) 2.45 m2 Results Description No Information Available Procedures Description No Information Available Medical Devices Description No Information Available Encounters Type Date Location Provider Dx Diagnosis Office Visit 06/28/2020 3:15p [facility] Lina maxwell MD N18.4 Chronic kidney disease, stage 4 (severe) Assessments Date Code Description Provider 06/28/2020 N18.4 Chronic kidney disease, stage 4 (severe) Lina Jade MD Plan of Treatment Future Appointment(s):* 08/19/2020 9:30 am - KRISTY Meyer at [facility] * 08/13/2020 10:15 am - Lina Jade MD at [facility] 06/28/2020 - Lina Jade MD* N18.4 Chronic kidney disease, stage 4 (severe) Functional Status Description No Information Available Mental Status Description No Information Available Referrals Refer to Reason for Referral Status Appt Date Lina Jade MD EVAL [facility]F Scheduled 06/28/2020 [address] [facility], [address] [place] [address] [phone]
--- OUTSIDE RECORDS SUMMARY | 2020-08-05 10:09 | CCD ---
Author Author [facility] Organization [facility] Address Unknown Phone Unavailable Care Team Providers Care Public Information Coordinator Name Role Phone Nicole Garrett Unavailable PROBLEMS Type Condition ICD9-CM Code [id number] Code Onset Dates Condition S tatus SNOMED Code Notes Problem Other specified disorders of kidney and ureter N28 .89 Active 080073463 Problem Personal history of malignant neoplasm of prostate Z85.46 Active 490914200 Problem CKD (chronic kidney disease), stage 4 (severe) N18 .4 Active 336288971 Problem S/P right hemicolectomy Z90.49 Active 55287386 6 Problem Anticoagulant long-term use Z79.01 Active 7111 98926 Problem Other specified hypothyroidism E03.8 Active 4 6228888 Problem Type 2 diabetes mellitus with diabetic chronic kidney disease E11.22 Active 80543929 Problem Benign prostatic hyperplasia , unspecified whether lower urinary tract symptoms present N40.0 Active 151594051 Problem Hepatic cirrhosis, unspecified hepatic cirrhosis type K74.60 Active 75274820 Problem Hydroureter N13.4 Active 84573711 Problem Prostate cancer C61 Active 552341000 Problem Iron deficiency E61.1 Active 37909964 Problem Atrial fibrillation, unspecified type I48.91 Ac tive 14080681 Problem Chronic venous hypertension (idiopathic) with ulcer of left lower extremity I87.312 Active 466230688 Problem Non-pressure chronic ulcer o f other part of right lower leg with fat layer exposed L97.812 Active 950403461 Problem Hypothyroidism, unspecified type E03.9 Active 34290979 Problem Chronic venous hypertension (idiopathic) with ulcer of right lower extremity I87.311 Active 839959602 Problem Influenza vaccination declined Z28.21 Active 3 36401692 Problem Dyslipidemia E78.5 Active 465128771 Problem 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 Active 245960561 Problem Seborrheic dermatitis L21.9 Active 15885754 Problem Type 2 diabetes mellitus with other circulatory complicati on E11.59 Active 934940088 Problem Essential hypertension I10 Active 01922858 Problem Urge incontinence N39.41 Active 89110368 Problem Iron deficiency anemia, unspecified iron deficiency an emia type D50.9 Active 94455189 Problem Lymphedema I89.0 Active 865185241 Problem Benign prostatic hyperplasia with lower urinary tract symptoms N40.1 Active 876902955694809 Problem Gout, unspecified cause, unspecified chronicity, unspecified site M10.9 Active 96481997 Problem Non-pressure chronic ulcer o f other part of left lower leg with fat layer exposed L97.822 Active 201556972 Problem Other iron deficiency anemia D50.8 Active 875 11462 Problem Chronic kidney disease, stage 4 (severe) N18.4 Active 876993899 Problem Acute on chronic congestive heart failure, unspecified heart failure type I50.9 Active 045605203 Problem Stage 4 chronic kidney disease N18.4 Active 4 20840357 ALLERGIES Allergen (clinical drug ingredient) Drug/Non Drug Allergy do cumented on EMR Reaction Allergy Type Onset Date Status oysters Hives Non Drug Allergy Active ENCOUNTERS from 1938 to 2020-07-05 Encounter Location Date Provider Diagnosis [facility] [address] [place] [address] 13 Jun Nicole Garrett Benign prostatic hyperplasia with lower urinary tract symptoms N40.1 and Frequency of micturition R35.0 IMMUNIZATIONS Vaccine Route Administration Date Status Influenza [...] Education Language: Question Answer Notes Languages spoken: Yakut Sikhism: Question Answer Notes Sikhism 03 Anabaptism Drug and Alcohol Question Answer Notes Total [...] Information RESULTS No Results REASON FOR VISIT Prescription refill MEDICAL (GENERAL) HISTORY Type Description Date Medical History CKDIV: Chronic kidney diseas e, meds from nephro include torsemide, vitamin B12, with furosemide and lisinopril and spironolactone recently stopped by the asbestos textile supervisor; November 2017 switched by nephrology to torsemide [...] 02/12/2019 Hospitalization History surgery related Hospitalization History [facility] - hematuria 09/2018 Hospitalization History [facility] 12/22/18-12/25/18 Hospitalization History Symptomatic Anemia - [facility] 05/31-05/23 Goals Section No Information Health Concerns No Information MEDICAL EQUIPMENT No Information MENTAL STATUS No Information FUNCTIONAL STATUS No Information ASSESSMENTS Encounter Date Diagnosis Assessment Notes Treatment Notes Treatm ent Clinical Notes Jun, Benign prostatic hyperplasia with lower urinary tract symptoms (ICD-10 - N40.1) Jun, Frequency of micturition (ICD-10 - R35.0) PLAN OF TREATMENT Medication Medication Name Sig Start Date Stop Date Tamsulosin HCl 0.4 MG 1 capsule Orally Once a day for 90 days Jun, Flomax 0.4 MG 1 capsule 30 minutes after t he same meal each day Orally Once a day for 90 days Metoprolol Succinate ER 50 MG 1 tablet Orally Once a day for 90 Next Appt Details Provider Name:Gabriel Ng, 2020-07-28 08:30:00 AM, [address] [place], [address], Provider Name:Rosalie Biswas, 2020-11-21 4 10:45:00 AM, [address], [place], [address], Insurance Providers Payer Name Payer Address Payer Phone Insured Name Patient Relati onship to Insured Coverage Start Date Coverage End Date [facility] [address] [address] [facility] [phone] REBECCA JAUREGUI self
--- OUTSIDE RECORDS SUMMARY | 2020-08-05 10:10 | CCD ---
Author Author [facility] Organization [facility] Address Unknown Phone Unavailable Care Team Providers Care Finish Production Manager Name Role Phone Gabriel Ng Unavailable PROBLEMS Type Condition ICD9-CM Code [id number] Code Onset Dates Condition S tatus SNOMED Code Notes Problem Prostate cancer C61 Active 966682350 Problem Atrial fibrillation, unspecified type I48.91 Ac tive 97004667 Problem Hepatic cirrhosis, unspecified hepatic cirrhosis type K74.60 Active 08189422 Problem Other specified disorders of kidney and ureter N28 .89 Active 722454773 Problem Iron deficiency E61.1 Active 73024062 Problem Personal history of malignant neoplasm of prostate Z85.46 Active 304437276 Problem CKD (chronic kidney disease), stage 4 (severe) N18 .4 Active 980022327 Problem Influenza vaccination declined Z28.21 Active 3 74253918 Problem Dyslipidemia E78.5 Active 966200828 Problem Gout, unspecified cause, unspecified chronicity, unspecified site M10.9 Active 04581040 Problem Other specified hypothyroidism E03.8 Active 4 9933218 Problem Non-pressure chronic ulcer o f other part of left lower leg with fat layer exposed L97.822 Active 558148176 Problem Lymphedema I89.0 Active 587694891 Problem Chronic venous hypertension (idiopathic) with ulcer of left lower extremity I87.312 Active 910506138 Problem Non-pressure chronic ulcer o f other part of right lower leg with fat layer exposed L97.812 Active 518294435 Problem Hypothyroidism, unspecified type E03.9 Active 99644483 Problem Chronic venous hypertension (idiopathic) with ulcer of right lower extremity I87.311 Active 670758605 Problem Seborrheic dermatitis L21.9 Active 66190645 Problem 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 Active 241620147 Problem Hydroureter N13.4 Active 07345915 Problem Other iron deficiency anemia D50.8 Active 878 48913 Problem S/P right hemicolectomy Z90.49 Active 17980389 6 Problem Chronic kidney disease, stage 4 (severe) N18.4 Active 689809534 Problem Anticoagulant long-term use Z79.01 Active 7111 38588 Problem Type 2 diabetes mellitus with diabetic chronic kidney disease E11.22 Active 04702481 Problem Benign prostatic hyperplasia , unspecified whether lower urinary tract symptoms present N40.0 Active 901450945 Problem Type 2 diabetes mellitus with other circulatory complicati on E11.59 Active 045101269 Problem Essential hypertension I10 Active 72600552 Problem Urge incontinence N39.41 Active 95899849 ALLERGIES Allergen (clinical drug ingredient) Drug/Non Drug Allergy do cumented on EMR Reaction Allergy Type Onset Date Status oysters Hives Non Drug Allergy Active ENCOUNTERS from 1938 to 2020-06-02 Encounter Location Date Provider Diagnosis [facility] [address] [place] [address] May, Gabriel Ng IMMUNIZATIONS Vaccine Route Administration Date Status Influenza [...] Education Language: Question Answer Notes Languages spoken: Nauruan Uatsdin: Question Answer Notes Uatsdin 03 Tenriism Drug and Alcohol Question Answer Notes Total [...] MEDICATIONS Medication SIG (Take, Route, Frequency, Duration) Start Date En d Date Status Torsemide 100 MG 1/2 tablet Orally Once a day Active Vitamin D3 Active Potassium Chloride ER 20 MEQ 1 tablet with food Orally Once a day for 30 day(s) Active Baby Aspirin 81 MG 1 tablet Orally Once a day for 30 day(s) Active ICaps Plus 1tab Orally daily for 30 day(s) Active Glucometer E11.9 check sugars once a day for 30 day(s) Jul, Active Levothyroxine Sodium 175 MCG 1 tablet on an empty stom ach in the morning Orally Once a day for 90 day(s) Active Metolazone 2.5 MG 1 tablet Orally on Sunday Active OneTouch Test - as directed In Vitro E11.22 check daily for 30 day(s) Aug, Active Flomax 0.4 MG 1 capsule 30 minutes after t he same meal each day Orally Once a day for 90 days May, Active Metoprolol Succinate ER 50 MG 1 tablet Orally Once a day for 90 Active GlipiZIDE ER 2.5 MG 1 tablet with breakfast Orally Once a day for 9 0 days Active Allopurinol 300 MG 1 tablet Orally-nephrology Once a day for 90 day (s) Active PROCEDURES No Information RESULTS No Results REASON FOR VISIT Anemia MEDICAL (GENERAL) HISTORY Type Description Date Medical History CKDIV: Chronic kidney diseas e, meds from nephro include torsemide, vitamin B12, with furosemide and lisinopril and spironolactone recently stopped by the agile business analyst; November 2017 switched by nephrology to torsemide [...] Medical History LUTs, s/p prostate cancer wi th radiation treatment, on flomax by PCP, follows [...] 02/12/2019 Hospitalization History surgery related Hospitalization History [facility] - hematuria 09/2018 Hospitalization History [facility] 12/22/18-12/25/18 Goals Section No Information Health Concerns No Information MEDICAL EQUIPMENT No Information MENTAL STATUS No Information FUNCTIONAL STATUS No Information ASSESSMENTS No Information PLAN OF TREATMENT Medication Medication Name Sig Start Date Stop Date Metoprolol Succinate ER 50 MG 1 tablet Orally Once a day for 90 Next Appt Details Provider Name:Rosalie Matthews Jagjittal, 2019-11-2 4 11:30:00 AM, [address], [place], [address], Insurance Providers Payer Name Payer Address Payer Phone Insured Name Patient Relati onship to Insured Coverage Start Date [facility]age End Date [id number] [employer] [facility] [address] [address] [facility] [phone] [phone] REBECCA JAUREGUI self
--- OUTSIDE RECORDS SUMMARY | 2020-08-05 10:10 | CCD ---
Author Author [facility] Organization [facility] Address Unknown Phone Unavailable Care Team Providers Care Government Teacher Name Role Phone Marisol Jade MD Unavailable Unavailable Marisol Jade MD Unavailable Unavailable Marisol Jade MD Unavailable Unavailable Marisol Jade MD Unavailable Unavailable Marisol Jade MD Unavailable Unavailable Marisol Jade MD Unavailable Unavailable Marisol Jade MD Unavailable Unavailable Marisol Jade MD Unavailable Unavailable Marisol Jade MD Unavailable Unavailable Marisol Jade MD Unavailable Unavailable Marisol Jade MD Unavailable Unavailable Marisol Jade MD Unavailable Unavailable Marisol Jade MD Unavailable Unavailable Marisol Jade MD Unavailable Unavailable Roe Abebe MD, FACS Unavailable Unavailable Roe Abebe MD, FACS Unavailable Unavailable Roe Abebe MD, FACS Unavailable Unavailable Foreman Ken, Roe Junior MD, FACS Unavailable Unavailable Foreman Ken, Roe Junior MD, FACS Unavailable Unavailable Foreman Ken, Roe Junior MD, FACS Unavailable Unavailable Foreman Ken, Roe Junior MD, FACS Unavailable Unavailable Foreman Ken, Roe Junior MD, FACS Unavailable Unavailable Foreman Ken, Roe Junior MD, FACS Unavailable Unavailable Froeman Ken, Roe Junior MD, FACS Unavailable Unavailable Foreman Ken, Roe Junior MD, FACS Unavailable Unavailable Foreman Ken, Roe Junior MD, FACS Unavailable Unavailable Foreman Ken, Roe Junior MD, FACS Unavailable Unavailable Foreman Ken, Roe Junior MD, FACS Unavailable Unavailable Foreman Ken, Roe Junior MD, FACS Unavailable Unavailable Foreman Ken, Roe Junior MD, FACS Unavailable Unavailable Foreman Ken, Roe Junior MD, FACS Unavailable Unavailable Foreman Ken, Roe Junior MD, FACS Unavailable Unavailable Foreman Ken, Roe Junior MD, FACS Unavailable Unavailable Foreman Ken, Roe Junior MD, FACS Unavailable Unavailable Foreman Ken, Roe Junior MD, FACS Unavailable Unavailable Foreman Ken, Roe Junior MD, FACS Unavailable Unavailable Foreman Ken, Roe Junior MD, FACS Unavailable Unavailable Foreman Ken, Roe Junior MD, FACS Unavailable Unavailable Foreman Ken, Roe Junior MD, FACS Unavailable Unavailable Foreman Ken, Roe Junior MD, FACS Unavailable Unavailable Foreman Ken, Roe Junior MD, FACS Unavailable Unavailable Foreman Ken, Roe Junior MD, FACS Unavailable Unavailable Foreman Ken, Roe Junior MD, FACS Unavailable Unavailable Foreman Ken, Roe Junior MD, FACS Unavailable Unavailable Foreman Ken, Roe Junior MD, FACS Unavailable Unavailable Foreman Ken, Roe Junior MD, FACS Unavailable Unavailable Foreman Ken, Roe Junior MD, FACS Unavailable Unavailable Foreman Ken, Roe Junior MD, FACS Unavailable Unavailable Kocan, J Melissa INTENSIVE CARE NURSE Unavailable Unavailable Kocan, J Melissa INTENSIVE CARE NURSE Unavailable Unavailable Kocan, J Melissa INTENSIVE CARE NURSE Unavailable Unavailable Kocan, J Melissa INTENSIVE CARE NURSE Unavailable Unavailable Kocan, J Melissa INTENSIVE CARE NURSE Unavailable Unavailable Kocan, J Melissa INTENSIVE CARE NURSE Unavailable Unavailable Kocan, J Melissa INTENSIVE CARE NURSE Unavailable Unavailable Kocan, J Melissa INTENSIVE CARE NURSE Unavailable Unavailable Kocan, J Melissa INTENSIVE CARE NURSE Unavailable Unavailable Kocan, J Melissa INTENSIVE CARE NURSE Unavailable Unavailable Kocan, J Melissa INTENSIVE CARE NURSE Unavailable Unavailable Kocan, J Melissa INTENSIVE CARE NURSE Unavailable Unavailable Kocan, J Melissa INTENSIVE CARE NURSE Unavailable Unavailable Popeye Nur MD Unavailable Unavailable Popeye Nur MD Unavailable Unavailable Popeye Nur MD Unavailable Unavailable Popeye Nur MD Unavailable Unavailable Popeye Nur MD Unavailable Unavailable Popeye Nur MD Unavailable Unavailable Popeye Nur MD Unavailable Unavailable Liudmila, Popeye MD Unavailable Unavailable Liudmila, Sandy Level MD Unavailable Unavailable Liudmila, Popeye MD Unavailable Unavailable Liudmila, Popeye MD Unavailable Unavailable Liudmila, Popeye MD Unavailable Unavailable Liudmila, Sandy Level MD Unavailable Unavailable Liudmila, Popeye MD Unavailable Unavailable Liudmila, Popeye MD Unavailable Unavailable Liudmila, Popeye MD Unavailable Unavailable Liudmila, Sandy Level MD Unavailable Unavailable Liudmila, Sandy Level MD Unavailable Unavailable Liudmila, Popeye MD Unavailable Unavailable Liudmila, Sandy Level MD Unavailable Unavailable Liudmila, Popeye MD Unavailable Unavailable Liudmila, Sandy Level MD Unavailable Unavailable Liudmila, Sandy Level MD Unavailable Unavailable Liudmila, Sandy Level MD Unavailable Unavailable Liudmila, Sandy Level MD Unavailable Unavailable Liudmila, Sandy Level MD Unavailable Unavailable Liudmila, Sandy Level MD Unavailable Unavailable Liudmila, Popeye MD Unavailable Unavailable Liudmila, Popeye MD Unavailable Unavailable Liudmila, Sandy Level MD Unavailable Unavailable Liudmila, Popeye MD Unavailable Unavailable Liudmila, Sandy Level MD Unavailable Unavailable Liudmila, Sandy Level MD Unavailable Unavailable Liudmila, Sandy Level MD Unavailable Unavailable Liudmila, Sandy Level MD Unavailable Unavailable Liudmila, Popeye MD Unavailable Unavailable Liudmila, Sandy Level MD Unavailable Unavailable Liudmila, Sandy Level MD Unavailable Unavailable Liudmila, Sandy Level MD Unavailable Unavailable Liudmila, Popeye MD Unavailable Unavailable Liudmila, Sandy Level MD Unavailable Unavailable Liudmila, Popeye MD Unavailable Unavailable Liudmila, Popeye MD Unavailable Unavailable Liudmila, Sandy Level MD Unavailable Unavailable Liudmila, Sandy Level MD Unavailable Unavailable Liudmila, Sandy Level MD Unavailable Unavailable MARC NUNEZ MD Unavailable Unavailable MARC NUNEZ MD Unavailable Unavailable MARC NUNEZ MD Unavailable Unavailable MARC NUNEZ MD Unavailable Unavailable MARC NUNEZ MD Unavailable Unavailable MARC NUNEZ MD Unavailable Unavailable MARC NUNEZ MD Unavailable Unavailable MARC NUNEZ MD Unavailable Unavailable MARC NUNEZ MD Unavailable Unavailable MARC NUNEZ MD Unavailable Unavailable MARC NUNEZ MD Unavailable Unavailable MARC NUNEZ MD Unavailable Unavailable MARC NUNEZ MD Unavailable Unavailable MARC NUNEZ MD Unavailable Unavailable MARC NUNEZ MD Unavailable Unavailable MARC NUNEZ MD Unavailable Unavailable MARC NUNEZ MD Unavailable Unavailable MARC NUNEZ MD Unavailable Unavailable MARC NUNEZ MD Unavailable Unavailable MARC NUNEZ MD Unavailable Unavailable MARC NUNEZ MD Unavailable Unavailable MARC NUNEZ MD Unavailable Unavailable MAYRA, TRAN MD Unavailable Unavailable MAYRA, TRAN MD Unavailable Unavailable MAYRA, TRAN MD Unavailable Unavailable MAYRA, TRAN MD Unavailable Unavailable MAYRA, TRAN MD Unavailable Unavailable MAYRA, TRAN MD Unavailable Unavailable MAYRA, TRAN MD Unavailable Unavailable MAYRA, TRAN MD Unavailable Unavailable MAYRA, TRAN MD Unavailable Unavailable MAYRA, TRAN MD Unavailable Unavailable MAYRA, TRAN MD Unavailable Unavailable MAYRA, TRAN MD Unavailable Unavailable MAYRA, TRAN MD Unavailable Unavailable MAYRA, TRAN MD Unavailable Unavailable MAYRA, TRAN MD Unavailable Unavailable MAYRA, TRAN MD Unavailable Unavailable MAYRA, TRAN MD Unavailable Unavailable MAYRA, TRAN MD Unavailable Unavailable MAYRA, TRAN MD Unavailable Unavailable MAYRA, TRAN MD Unavailable Unavailable MAYRA, TRAN MD Unavailable Unavailable MAYRA, TRAN MD Unavailable Unavailable MAYRA, TRAN MD Unavailable Unavailable MAYRA, TRAN MD Unavailable Unavailable MAYRA, TRAN MD Unavailable Unavailable MAYRA, TRAN MD Unavailable Unavailable MAYRA, TRAN MD Unavailable Unavailable MAYRA, TRAN MD Unavailable Unavailable MAYRA, TRAN MD Unavailable Unavailable MAYRA, TRAN MD Unavailable Unavailable MAYRA, TRAN MD Unavailable Unavailable MAYRA, TRAN MD Unavailable Unavailable Re-disclosure Warning The records that you are about to access may contain information from federally-assisted alcohol or drug abuse programs. If such information is present, then the following federally mandated warning applies: This information has been disclosed to you from records protected by federal confidentiality rules (42 CFR part 2). The federal rules prohibit you from making any further disclosure of this information unless further disclosure is expressly permitted by the written consent of the person to whom it pertains or as otherwise permitted by 42 CFR part 2. A general authorization for the release of medical or other information is NOT sufficient for this purpose. The Federal rules restrict any use of the information to criminally investigate or prosecute any alcohol or drug abuse patient.The records that you are about to access may contain highly sensitive health information, the redisclosure of which is protected by Article 27-F of the [facility] Public Health law. If you continue you may have access to information: Regarding HIV / AIDS; Provided by facilities licensed or operated by the [facility] Office of Mental Health; or Provided by the [facility] Office for People With Developmental Disabilities. If such information is present, then the following [facility] mandated warning applies: This information has been disclosed to you from confidential records which are protected by state law. State law prohibits you from making any further disclosure of this information without the specific written consent of the person to whom it pertains, or as otherwise permitted by law. Any unauthorized further disclosure in violation of state law may result in a fine or detention sentence or both. A general authorization for the release of medical or other information is NOT sufficient authorization for further disc losure. Allergies and Adverse Reactions Type Description Substance Reaction Status Data Source(s ) Allergy to substance No Known Allergies No known allergies (situation ) [place] (Vernon Ken MD [facility]) Allergy to substance No Known Allergies No known allergies (situation ) [place] (Vernon Ken MD [facility]) oysters oysters oysters Hives Active eCW1 ([facility]) oysters oysters oysters Hives Active eCW1 ([facility]) Allergy to substance No Known Allergies No known allergies (situation ) NAHOMI (Vernon Ken MD [facility]) oysters oysters oysters Hives Active eCW1 ([facility]) Family History Family Member Name Family Member Gender Family Member Status Date o f Status Description Data Source(s) Unknown Unknown Problem [facility] ([facility], ) Unknown Unknown Problem [facility]ENT ([facility], ) Unknown Unknown Problem MEDENT ([facility], ) Kidney father Unknown Unknown Encounters Encounter Providers Location Date Indications Data Source(s ) Unknown [address] [facility] [id number] 08/03/2020 12:00:00 AM EST eCW1 ([facility]) Outpatient [address] [facility] [id number] 07/28/2020 12:00:00 AM EST eCW1 ([facility]) Unknown [address] [facility] [place] [address] 07/04/2020 12:00:00 AM EST eCW1 ([facility]) Unknown [address] [facility] [place] [address] 07/04/2020 12:00:00 AM EST eCW1 ([facility]) Outpatient Attender: Lina Huffman/Ger/William/ Avni 06/28/2020 02:15:00 PM EST [facility] ([facility] Outpatient [address] [facility] [place] [address] 06/22/2020 12:00:00 AM EST eCW1 ([facility] [address] [facility] [address] 06/15/2020 12:00:00 AM EST eCW1 ([facility]) Outpatient [address] [facility] [place] [address] 06/10/2020 12:00:00 AM EST eCW1 ([facility]) Unknown [address] [facility] [place] [address] 06/01/2020 12:00:00 AM EST eCW1 ([facility]) Unknown [address] [facility] [place] [address] 06/01/2020 12:00:00 AM EST [facility] Unknown [address] [facility] [place] [address] 05/31/2020 12:00:00 AM EST eCW1 ([facility]) Outpatient [address] [facility] [place] [address] 05/25/2020 12:00:00 AM EST eCW1 ([facility]) Outpatient Attender: Melissa Bella RNPReferrer: Melissa Prado NP SJP.JASWANT-SJP.JASWANT 04/20/2020 11:03:17 AM EDT - 04/20/2020 01:49:56 PM EDT [facility] Outpatient<td ID="encounterTypeDescripti onID0">7 Month Follow-Up</td><td>Vernon Paul MD, FACS</td><td>Vernon Paul MD [facility]</td><td>03/18/2020</td><td>1:02PM</td><td>1:47PM</td><td><content ID="encounterDiagnosisID0-0">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</content>, <content ID="encounterDiagnosisID0-1"> Assessment of Taking Medication For Diabetes Long-term Use of Oral Hypoglycemics</content>, <content ID="encounterDiagnosisID0-2">Macular Degeneration Nonexudative Bilateral Early Dry Stage</content>, <content ID="encounterDiagnosisID0-3">Essential Hypertension</content>, <content ID="encounterDiagnosisID0-4">History of Nicotine Dependence</content>, <content ID="encounterDiagnosisID0-5">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</content>, <content ID="encounterDiagnosisID0-6">Pseudophakia</content></td> Attender: Vernon Ken MD, FACS Vernon Paul MD [facility] 03/18/2020 01:02:00 PM EDT - 03/18/2020 01:47:00 PM EDT Macular Degeneration Nonexudative Bilate ral Early Dry StageAssessment of Taking Medication For Diabetes Long-term Use of Oral HypoglycemicsMacular Degeneration Nonexudative Bilateral Early Dry Stage Assessment of Taking Medication For Diabetes Long-term Use of Oral HypoglycemicsPseudophakia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History of Nicotine DependenceEssential Hypertension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Pseudophakia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History of Nicotine DependenceEssential Hypertension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 NAHOMI (Vernon Ken MD [facility]) Macular Degeneration Nonexudative Bilate ral Early Dry Stage Assessment of Taking Medication For Diab etes Long-term Use of Oral Hypoglycemics Macular Degeneration Nonexudative Bilate ral Early Dry Stage Assessment of Taking Medication For Diab etes Long-term Use of Oral Hypoglycemics Pseudophakia Posterior Capsule Opacification Eccentri c Capsule Both Eyes History of Nicotine Dependence Essential Hypertension 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 Pseudophakia Posterior Capsule Opacification Eccentri c Capsule Both Eyes History of Nicotine Dependence Essential Hypertension 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 Outpatient Attender: MARC NUNEZ MD SJP.JASWANT-SJAngel.JASWANT 0 09:26:46 AM EDT - 02/18/2020 10:53:07 AM [facility] [address] [facility] [place] [address] 12/21/2019 12:00:00 AM EDT eCW1 ([facility]) [facility] [address] [facility] [place] [address] 12/16/2019 12:00:00 AM EDT eCW1 ([facility]) [facility] [place] [address] [facility] [address] 12/04/2019 12:00:00 AM EDT eCW1 ([facility]) [facility] [address] [facility] [place] [address] 10/29/2019 12:00:00 AM EDT eCW1 ([facility]) [facility] [address] [facility], [place] [address] 10/27/2019 12:00:00 AM EDT eCW1 ([facility]) Outpatient Referrer: Popeye Nur MD 08/14/2019 01:50:00 PM EST [facility] Urology [address] [place] [address], [place] [address] 08/14/2019 12:00:00 AM EST eCW1 ([facility]) [facility] Urology [address] [place] [address] N [place] [address] 08/11/2019 12:00:00 AM EST eCW1 ([facility]) [facility] Urology Center [address] [place] [address] 08/11/2019 12:00:00 AM EST eCW1 ([facility]) Outpatient<td ID="encounterTypeDescripti onID1">7 Month Follow-Up</td><td>Vernon Paul MD, FACS</td><td>Vernon Paul MD [facility]</td><td>07/31/2019</td><td>9:26AM</td><td>10:08AM</td><td><content ID="encounterDiagnosisID1-0">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</content>, <content ID="encounterDiagnosisID1-1">Macular Degeneration Nonexudative Bilateral Early Dry Stage</content>, <content ID="encounterDiagnosisID1-2">Essential Hypertension</content>, <content ID="encounterDiagnosisID1-3">History of Nicotine Dependence</content>, <content ID="encounterDiagnosisID1-4">Taking Medication For Diabetes Long-term Use of Oral Hypoglycemics</content>, <content ID="encounterDiagnosisID1-5">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</content>, <content ID="encounterDiagnosisID1-6">Pseudophakia</content></td> Attender: Vernon Ken MD, FACS Vernon Paul MD [facility] 07/31/2019 09:26:00 AM EST - 07/31/2019 10:08:00 AM EST Taking Medication For Diabetes Long-term Use of Oral HypoglycemicsMacular Degeneration Nonexudative Bilateral Early Dry StageTaking Medication For Diabetes Long-term Use of Oral HypoglycemicsMacular Degeneration Nonexudative Bilateral Early Dry StageTaking Medication For Diabetes Long-term Use of Oral HypoglycemicsMacular Degeneration Nonexudative Bilateral Early Dry StagePseudophakia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History of Nicotine DependenceEssential Hypertension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Pseudophakia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History of Nicotine DependenceEssential Hypertension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Pseudophakia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History of Nicotine DependenceEssential Hypertension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 NAHOMI (Vernon Ken MD [facility]) Taking Medication For Diabetes Long-term Use of Oral Hypoglycemics Macular Degeneration Nonexudative Bilate ral Early Dry Stage Taking Medication For Diabetes Long-term Use of Oral Hypoglycemics Macular Degeneration Nonexudative Bilate ral Early Dry Stage Taking Medication For Diabetes Long-term Use of Oral Hypoglycemics Macular Degeneration Nonexudative Bilate ral Early Dry Stage Pseudophakia Posterior Capsule Opacification Eccentri c Capsule Both Eyes History of Nicotine Dependence Essential Hypertension 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 Pseudophakia Posterior Capsule Opacification Eccentri c Capsule Both Eyes History of Nicotine Dependence Essential Hypertension 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 Pseudophakia Posterior Capsule Opacification Eccentri c Capsule Both Eyes History of Nicotine Dependence Essential Hypertension 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 [facility] [address] [place] [address] [place] [address] 07/29/2019 12:00:00 AM EST eCW1 ([facility]) [address] [place] [address] 07/29/2019 12:00:00 AM EST eCW1 ([facility]) [address] [place] [address] 07/07/2019 12:00:00 AM EST eCW1 ([facility]) [address] [place] [address] 06/30/2019 12:00:00 AM EST eCW1 ([facility]) [address] [address] 06/27/2019 12:00:00 AM EST eCW1 ([facility]) Outpatient Attender: MARC NUNEZ MD SJP.JASWANT-SJP.JASWANT 06/11/2019 12:00:00 AM EST [facility] Medications Medication Brand Name Start Date Product Form Dose Route Admi nistrative Instructions Pharmacy Instructions Status Indications Reaction Description Data Source(s) Tamsulosin hydrochloride 0.4 MG Oral Capsule Tamsulosi n HCl 0.4 MG Tamsulosin HCl 0.4 MG 07/04/2020 12:00:00 AM EST 1.0 {capsule} active Tamsulosin HCl 0.4 MG eCW1 ([facility]) Tamsulosin hydrochloride 0.4 MG Oral Capsule Tamsulosi n HCl 0.4 MG Tamsulosin HCl 0.4 MG 07/04/2020 12:00:00 AM EST 1.0 {capsule} active Tamsulosin HCl 0.4 MG eCW1 ([facility]) Tamsulosin hydrochloride 0.4 MG Oral Capsule Tamsulosi n HCl 0.4 MG Tamsulosin HCl 0.4 MG 07/04/2020 12:00:00 AM EST 1.0 {capsule} active Tamsulosin HCl 0.4 MG eCW1 ([facility]) Tamsulosin hydrochloride 0.4 MG Oral Capsule Tamsulosi n HCl 0.4 MG Tamsulosin HCl 0.4 MG 07/04/2020 12:00:00 AM EST 1.0 {capsule} active Tamsulosin HCl 0.4 MG eCW1 ([facility]) Sucralfate 1000 MG Oral Tablet Sucralfate 06/30/2020 12:00:00 AM EST active MEDENT ([facility] ) Glucometer UNK 07/29/2019 12:00:00 AM EST active Glucometer eCW1 ([facility]) Glucometer UNK 07/29/2019 12:00:00 AM EST active Glucometer eCW1 ([facility]) Glucometer UNK 07/29/2019 12:00:00 AM EST active E11.9 check sugars once a day eCW1 ([facility]) Glucometer UNK 07/29/2019 12:00:00 AM EST active Glucometer eCW1 ([facility]) Glucometer UNK 07/29/2019 12:00:00 AM EST active Glucometer eCW1 ([facility]) Glucometer UNK 07/29/2019 12:00:00 AM EST active E11.9 check sugars once a day eCW1 ([facility]) Glucometer UNK 07/29/2019 12:00:00 AM EST active Glucometer eCW1 ([facility]) Glucometer UNK 07/29/2019 12:00:00 AM EST active Glucometer eCW1 ([facility]) Glucometer UNK 07/29/2019 12:00:00 AM EST active Glucometer eCW1 ([facility]) Glucometer UNK 07/29/2019 12:00:00 AM EST active Glucometer eCW1 ([facility]) Glucometer UNK 07/29/2019 12:00:00 AM EST active Glucometer eCW1 ([facility]) Glucometer UNK 07/29/2019 12:00:00 AM EST active E11.9 check sugars once a day eCW1 ([facility]) Glucometer UNK 07/29/2019 12:00:00 AM EST active Glucometer eCW1 ([facility]) 24 HR Glipizide 2.5 MG Extended Release Oral Tablet Gl ipiZIDE ER 2.5 MG GlipiZIDE ER 2.5 MG 07/07/2019 12:00:00 AM EST active 1 tablet with breakfast eCW1 ([facility]) 24 HR Glipizide 2.5 MG Extended Release Oral Tablet Gl ipiZIDE ER 2.5 MG GlipiZIDE ER 2.5 MG 07/07/2019 12:00:00 AM EST active 1 tablet with breakfast eCW1 ([facility]) 24 HR Glipizide 2.5 MG Extended Release Oral Tablet Gl ipiZIDE ER 2.5 MG GlipiZIDE ER 2.5 MG 07/07/2019 12:00:00 AM EST active 1 tablet with breakfast eCW1 ([facility]) Insurance Providers Payer name Policy type / Coverage type Policy ID Covered alliance party ID Covered alliance party's relationship to daly Policy Daly Plan Information WELLCARE [id number] SP [id number] WELLCARE [id number] SP [id number] WELLCARE [id number] SP [id number] WELLCARE O [id number] S [id number] MEDICARE [id number] SP [id number] WELLCARE MEDICARE [id number] [place] 16 [id number] WELLCARE [id number] SP [id number] WELLCARE [id number] SP [id number] WELLCARE [id number] SP [id number] WELLCARE O [id number] S [id number] [employer] OPT[place] [id number] [place] [id number] MEDICARE [id number] SP [id number] A ANSI-Medicare Part B [id number] ANSI-Health Maintenance Organization (HM O) [id number] ANSI-Medicare Part B [id number] [facility]S-Health Maintenance Organization ( O) [id number] ANSI-Medicare Part B [id number] [facility]-Health Maintenance Organization ( O) [id number] [facility] [id number] SP [id number] ANSI-Medicare Part B [id number] [facility]-Health Maintenance Organization ( O) [id number] [facility]-Health Maintenance Organization ( O) [id number] ANSI-Medicare Part B [id number] [facility] Maintenance Organization ( O) [id number] ANSI-Medicare Part B [id number] ANSI-Medicare Part B [id number] [facility]-Health Maintenance Organization ( O) [id number] ANSI-Medicare Part B [id number] [facility]-Health Maintenance Organization ( O) [id number] [facility] Maintenance Organization ( O) [id number] ANSI-Medicare Part B [id number] [facility]-Health Maintenance Organization ( O) [id number] ANSI-Medicare Part B [id number] ANSI-Medicare Part B [id number] [facility]-Health Maintenance Organization ( O) [id number] ANSI-Medicare Part B [id number] [facility]-Health Maintenance Organization ( O) [id number] ANSI-Medicare Part B [id number] [facility]-Health Maintenance Organization ( O) [id number] ANSI-Medicare Part B [id number] [facility] Maintenance Organization ( O) [id number] [facility] Maintenance Organization ( O) [id number] ANSI-Medicare Part B [id number] [employer] [id number] SP [id number] [facility] ( O) [id number] ANSI-Medicare Part B [id number] [facility] ( [facility]) [id number] ANSI-Medicare Part B [id number] ANSI-Medicare Part B [id number] ANSI-Medicare Part B [id number] ANSI-Medicare Part B [id number] ANSI-Medicare Part B [id number] [employer] [id number] SP [id number] ANSI-Medicare Part B [id number] ANSI-Medicare Part B [id number] ANS-Medicare Part B [id number] ANSI-Medicare Part B [id number] [employer] [id number] SP [id number] Today's Options Medicare Commercial [id number] Self [id number] Today's Options Medicare Commercial [id number] Self [id number] [employer] [id number] SP [id number] [employer] [id number] SP [id number] Today's Options Medicare Commercial [id number] Self [id number] [employer] [id number] SP [id number] Today's Options Medicare Commercial [id number] Self [id number] Today's Options Medicare Commercial [id number] Self [id number] Today's Options Medicare Commercial [id number] Self [id number] MEDICARE BLUE PPO 306 [id number] SP [id number] Today's Options Medicare Commercial Self MEDICARE BLUE PPO 306 [id number] SP [id number] EXCELLUS BCBS B [id number] S [id number] EXCELLUS BCBS MCR O [facility] HMO [id number] S [id number] Medicare Blue Ppo Health Maintenance Organization (HMO) Self MEDICARE BLUE PPO 306 [id number] SP [id number] Problems, Conditions, and Diagnoses Code Display Name Description Problem Type Effective Dates Data Source(s) N40.1 [id number] Benign prostatic hyp erplasia with lower urinary tract symptoms Problem 07/04/2020 12:00:00 AM EST eCW1 ([facility]) N18.4 [id number] Stage 4 chronic kidney disease Problem 06/10/2020 12:00:00 AM EST eCW1 ([facility]) I50.9 [id number] Acute on chronic con gestive heart failure, unspecified heart failure type Problem 06/10/2020 12:00:00 AM EST eCW1 ([facility]) D50.9 [id number] Iron deficiency anemia, unspecif ied iron deficiency anemia type Problem 06/10/2020 12:00:00 AM EST eCW1 ([facility]) 068661015 Macular Degeneration Nonexudative Bilate ral Early Dry 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 Problem 12:00:00 AM EST NAHOMI (Vernon Ken MD [facility]) [id number] Taking Medication For Diabetes Long-term Use of Oral Hypoglycemics Taking Medication For Diabetes Long-term Use of Oral Hypoglycemics Finding 07/31/2019 12:00:00 AM EST NAHOMI (Vernon Ken MD [facility]) [id number] Macular Degeneration Nonexudative Bilate ral Early Dry 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 Problem 12:00:00 AM EST NAHOMI (Vernon Ken MD [facility]) [id number] Taking Medication For Diabetes Long-term Use of Oral Hypoglycemics Taking Medication For Diabetes Long-term Use of Oral Hypoglycemics Finding 07/31/2019 12:00:00 AM EST [facility]OMI (Vernon Ken MD [facility]) H35.3131 Macular Degeneration Nonexudative Bilate ral Early Dry 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 Problem 12:00:00 AM EST [facility]OMI (Vernon Ken MD [facility]) Z79.84 Taking Medication For Diabetes Long-term Use of Oral Hypoglycemics Taking Medication For Diabetes Long-term Use of Oral Hypoglycemics Finding 07/31/2019 12:00:00 AM EST NA[facility]OMI (Vernon Ken MD [facility]) N18.4 [id number] Chronic kidney disease, stage 4 (severe) Problem 07/29/2019 12:00:00 AM EST eCW1 ([facility]) R06.02 Shortness of breath Shortness of breath Diagnosis 0 04/20/2020 11:03:17 AM EDT [facility] E66.9 Obesity, unspecified Obesity, unspecified Diagnosis 04/20/2020 11:03:17 AM EDT [facility] E03.9 Hypothyroidism, unspecified Hypothyroidism, unspecifie d Diagnosis 04/20/2020 11:03:17 AM EDT [facility] N18.9 Chronic kidney disease, unspecified Chronic kidn ey disease, unspecified Diagnosis 04/20/2020 11:03:17 AM EDT [facility] I10 Essential (primary) hypertension Essential (primary) h ypertension Diagnosis 04/20/2020 11:03:17 AM EDT [facility] I48.91 Unspecified atrial fibrillation Unspecified atri al fibrillation Diagnosis 04/20/2020 11:03:17 AM EDT [facility] M10.9 Gout, unspecified Gout, unspecified Diagnosis 02/18/2020 09:26:46 AM EDT [facility] E11.9 Type 2 diabetes mellitus without complic ations Type 2 diabetes mellitus without complic Diagnosis 02/18/2020 09:26:46 AM EDT [facility] 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 Ot her obstructive and reflux uropathy Diagnosis 02/18/2020 09:26:46 AM EDT [facility] N40.1 Benign prostatic hyperplasia with lower urinary tract symptoms Benign prostatic hyperplasia with lower Diagnosis 02/18/2020 09:26:46 AM EDT [facility] E78.5 Hyperlipidemia, unspecified Hyperlipidemia, unspecifie d Diagnosis 02/18/2020 09:26:46 AM EDT [facility] Surgeries/Procedures Procedure Description Date Indications Data Source(s) ECG ROUTINE ECG W/LEAST 12 LDS W/I&R 05/25/2020 12:00: 00 AM EST eCW1 ([facility]) Intermediate Eye Exam Established Patient Intermediate Eye Exam Established Patient 03/18/2020 12:00:00 AM EDT NA[facility]OMI (Rickie Ken MD [facility]) Intermediate Eye Exam Established Patient Intermediate Eye Exam Established Patient 03/18/2020 12:00:00 AM EDT [facility]OMI (Rickie Ken MD [facility]) Office Visit, Est Pt., Level 2 FC 12/16/2019 12:00:00 AM EDT eCW1 ([facility]) Office Visit, Est Pt., Level 3 PC 12/16/2019 12:00:00 AM EDT eCW1 ([facility]) US URINE CAPACITY MEASURE 12/16/2019 12:00:00 AM EDT eCW1 ([facility]) Scodi Retina, with interpretation and re port (WAIVER OF LIABILITY ON FILE (ABN)) Scodi Retina, with interpretation and re port (WAIVER OF LIABILITY ON FILE (ABN)) 07/31/2019 12:00:00 AM EST NAHOMI (Rickie Ken MD [facility]) Comprehensive eye exam established patient (Signi/Sep Eval. & Man.) Comprehensive eye exam established patient (Signi/Sep Eval. & Man.) 07/31/2019 12:00:00 AM EST [facility]OMI (Vernon Ken MD [facility]) Reported medical history : Prostate Canc er, CAD, Kidney Failure (unsure of what stage) Reported medical history : Prostate Canc er, CAD, Kidney Failure (unsure of what stage) 07/31/2019 12:00:00 AM EST [facility]OMI (Rickie Ken MD [facility]) No recent change in medical history No recent change in medi davon history 07/31/2019 12:00:00 AM EST NA[facility]OMI (Vernon cueva MD [facility]) History of type 2 diabetes mellitus Dx: 2007, FBS: does not check currently, A1C: unsure of his last result with Dr. Edwards History of type 2 diabetes mellitus Dx: 2007, FBS: does not check currently, A1C: unsure of his last result with Dr. Edwards 07/31/2019 12:00:00 AM EST NAHOMI (Bonilla Ken MD [facility]) History of the retina was abnormal 12/27/2018 History o f the retina was abnormal 12/27/2018 07/31/2019 12:00:00 AM EST NA[facility]OMI (Rickie Ken MD [facility]) COMPUTERIZED OPHTHALMIC IMAGING RETINA Scodi Retina, w ith interpretation and report (GA) 07/31/2019 12:00:00 AM EST NAHOMI (Rickie Ken MD [facility]) Comprehensive eye exam established patient (25) Mikee hensive eye exam established patient (25) 07/31/2019 12:00:00 AM EST [facility]OMI (Vernon Ken MD [facility]) Results ID Date Data Source [id number] 07/31/2020 10:30:00 AM EST [facility] Name Value Range Interpretation Code Description Data Niru rce(s) Supporting Document(s) SARS coronavirus 2 RNA Not Detected [facility] [place] This lab was ordered by [facility] and reported by [facility]. ID Date Data Source [id number] 07/27/2020 01:00:00 PM EST [facility] Name Value Range Interpretation Code Description Data Niru rce(s) Supporting Document(s) SARS coronavirus 2 RNA [Presence] in Res piratory specimen by JACE with probe detection [facility] This lab was ordered by [facility] a nd reported by [facility]. ID Date Data Source TSH 06/02/2020 02:27:05 AM EST eCW1 ([facility]) Name Value Range Interpretation Code Description Data Niru rce(s) Supporting Document(s) 1.940 THYROID STIMULATING HORMONE eC W1 ([facility]) ID Date Data Source Comprehensive Metabolic Profile (CMP) 06/02/2020 02:27:05 AM EST eCW1 ([facility]) Name Value Range Interpretation Code Description Data Niru rce(s) Supporting Document(s) 132 GLUCOSE, FASTING eCW1 ([facility]) 91 BLOOD UREA NITROGEN eCW1 ([facility]) 3.28 CREATININE FOR GFR eCW1 ([facility]) 19.4 GLOMERULAR FILTRATION RATE eCW 1 ([facility]) 138 SODIUM LEVEL eCW1 ([facility]) 3.8 POTASSIUM SERUM eCW1 ([facility]) 99 CHLORIDE LEVEL eCW1 ([facility]) 31 CARBON DIOXIDE LEVEL eCW1 ([facility]) 20 AST/SGOT eCW1 ([facility]) 8.7 CALCIUM LEVEL eCW1 ([facility]) 83 ALKALINE PHOSPHATASE eCW1 ([facility]) 18 ALT/SGPT eCW1 ([facility]) 0.4 BILIRUBIN,TOTAL eCW1 ([facility]) 3.0 ALBUMIN eCW1 ([facility]) 7.9 TOTAL PROTEIN eCW1 ([facility]) 0.6 ALBUMIN/GLOBULIN RATIO eCW1 ([facility]) ID Date Data Source CBC with Differential 06/02/2020 02:27:05 AM EST eCW1 ([facility]) Name Value Range Interpretation Code Description Data Niru rce(s) Supporting Document(s) 4.4 WHITE BLOOD COUNT eCW1 ([facility]) 2.43 RED BLOOD COUNT eCW1 ([facility]) 7.2 HEMOGLOBIN eCW1 ([facility]) 25.3 HEMATOCRIT eCW1 ([facility]) 29.6 MEAN CORPUSCULAR HEMOGLOBIN eC W1 ([facility]) 104.1 MEAN CORPUSCULAR VOLUME eCW1 ( [facility]) 28.5 MEAN CORPUSCULAR HGB CONC eCW1 ([facility]) 15.9 RED CELL DISTRIBUTION WIDTH eC W1 ([facility]) 75.7 NEUTROPHILS % eCW1 ([facility]) 125 PLATELET COUNT, AUTOMATED eCW1 ([facility]) 9.8 MONO % eCW1 ([facility]) 7.1 LYMPH % eCW1 ([facility]) 0.5 BASO % eCW1 ([facility]) 3.3 NEUTROPHILS # eCW1 ([facility]) 6.2 EOS % eCW1 ([facility]) 0.3 LYMPH # eCW1 ([facility]) 0.4 MONO # eCW1 ([facility]) 0.3 EOS # eCW1 ([facility]) 0.0 BASO # eCW1 ([facility]) ID Date Data Source [id number] 04/24/2020 04:06:03 PM EDT [facility] Name Value Range Interpretation Code Description Data Niru rce(s) Supporting Document(s) &PDF [facility] XTIJJt4kKbUKGvRv20/WJAfaYCPxp5TiFFxxTJp9VAfwFSByB5UvfJmqJPGXHKSdU5KRLBOXMScaEVNn FcG [file] S0fZ2YzhHHKPgwooq8e7Zdwjp/nQO2HxzefzcbmPYNtTgJZ4jRRUPj0D8XCiU8VWVHTXrKmyUyo+Inés+ [file] AgICAgICAgICAgICAgICAgICAgICAgICAgICAgICAgICAgICAgICAgICAgICAgICAgICAgICAgICAgDQ ogICAgICAgICAgICAgICAgICAgICAgICAgICAgICAg ICAgICAgICAgICAgICAgICAgICAgICAgICAgICAgICAgICAgICAgICAgICAgICAgICAgICAgICAgICAg ICAgICAgICAgDQogICAgICAgICAgICAgICAgICAgICAgICAgICAgICAgICAgICAgICAgICAgICAgICAg ICAgICAgICAgICAgICAgICAgICAgICAgICAgICAgIC AgICAgICAgICAgICAgICAgICAgDQogICAgICAgICAgICAgICAgICAgICAgICAgICAgICAgICAgICAgIC AgICAgICAgICAgICAgICAgICAgICAgICAgICAgICAgICAgICAgICAgICAgICAgICAgICAgICAgICAgIC AgDQogICAgICAgICAgICAgICAgICAgICAgICAgICAg ICAgICAgICAgICAgICAgICAgICAgICAgICAgICAgICAgICAgICAgICAgICAgICAgICAgICAgICAgICAg ICAgICAgICAgICAgDQogICAgICAgICAgICAgICAgICAgICAgICAgICAgICAgICAgICAgICAgICAgICAg ICAgICAgICAgICAgICAgICAgICAgICAgICAgICAgIC AgICAgICAgICAgICAgICAgICAgICAgDQogICAgICAgICAgICAgICAgICAgICAgICAgICAgICAgICAgIC AgICAgICAgICAgICAgICAgICAgICAgICAgICAgICAgICAgICAgICAgICAgICAgICAgICAgICAgICAgIC AgICAgDQogICAgICAgICAgICAgICAgICAgICAgICAg ICAgICAgICAgICAgICAgICAgICAgICAgICAgICAgICAgICAgICAgICAgICAgICAgICAgICAgICAgICAg ICAgICAgICAgICAgICAgDQogICAgICAgICAgICAgICAgICAgICAgICAgICAgICAgICAgICAgICAgICAg ICAgICAgICAgICAgICAgICAgICAgICAgICAgICAgIC AgICAgICAgICAgICAgICAgICAgICAgICAgDQogICAgICAgICAgICAgICAgICAgICAgICAgICAgICAgIC AgICAgICAgICAgICAgICAgICAgICAgICAgICAgICAgICAgICAgICAgICAgICAgICAgICAgICAgICAgIC HxGFUhHYVrCMr1M4ueWPFmGCHrMG1qKKn5Ch1+DQoN XaLzDXQ5teJlpA5ZOH8hv1PlYJsrSFMcc4VaKOy9IM0DWWTiWTcxWP6DELscaq0HSLHbEBBzgRMBe4mb MdNoPCN4PZQmVeqxUP1NVQHmG2prohYsTTEaXTJDWGljNHOVGV3YDhCpJ4DzrR89OOPLLs7+DQplbmRv GeuCKbO8YWGko4WkKAp1UU4SMHIlGNqwUF7KDVKkvA 4hQTilMT4TMwFuKFNdJFCUVsPtU26pwHEaKKw8R0PmPoTlGSTsZnmhLEOuJVifCsRcTQRkWcEsANuwZM 4+ID4+DZzkKC0VPIeywrMzKKElGh1ZVMWrSWE3WESmqVUvLaXiTLGLEPtlYD5QlYGyIOX3pS7tAAvnXB AwIEWdQ3rEUuWgxQhyKG78pSuqxlDcxKHnFTg+Pg0K BN7pi2AzLGy0vcTbTXvqBAQ6QCorKRHyYCUzCFZqRPH1YMX8SXALKgCjVIZsBFLbQKpiAKLeUDTvcf8B OIOkPECcFQUmCaBaCAWcBYJgQVleHXQaBQN0NNu9CUZoQXUoPP9QUlVlBHVyHHGoVFPiTUZiXLZyfi0L MDAwMDAwMzYyNiAwMDAwMCBuDQowMDAwMDAzODMwID ClALStXP9FCmYjJHFdWKM2SaimLOJiESGpgz1PJEBhYODbTbe4WMBtZLHpRXKoSKosPGSzXFA6AhWkYH VlPUIyEO6JUaTpIQAiVOy3ODVhHRDkUVMaih8RPYFhXGLxMLJ0KlHlZSWrXDNoJPyxZARlAWN5CIE8DN JnIXAuVX6QIbCrCJTpEZxfPhlnTALoAUWhvf5MLBOd KKDtIDMtQmLuSZXzGHUwQXteVOXkAXS8QqhiQPToRJCzRQ5EJhDqVYHpRMW9USeeKJQjGDArut8XKXMs YXMfYMnrYAWcIYGeURHhUQaoAXLySCL2WTExMKFmCSVrPX5JSoLzKCNkXKEpRCxdHJAjNKHjgt8HAAMj CMZiClL5OQVhYIHpZHDjOWqvHVPpJER1NtE6WCGaUK BqVQ2FCbChPDVtSBF2SPqmOQGfVCBybx3JLQFnJGYuBhF5HnJkTLWiKBLdUQuxNLLkJDU4NsEiWSZwEA YsIL9IPgGtSGJlOtE1MIzrHWTrHNIolu8SXEQxLLVyMnX9KFVhZCQmTDIwBQv4fwPkiDLjZVh3HR1QQ8 JybnLpBmqWZf1Ro259JNH7XYPnBv5SN9vmHw9vRMWw YHDNWg2MDAo5BABjIJUfNNG7RSXzNqkqBsAjLUR8DRkcRXN0YYupZkK+UQbdOQJoJVLpVdswUAK6MBYr MTXqGVp4E4IpHlBeFAD2AC6oLOYKQf3+XRdsmWElaHhaJILHUpJ0Jek6FThpNVHACm7M Procedure Social History Code Duration Value Status Description Data Source(s ) Smoking 07/28/2020 12:00:00 AM EST Former Smoker completed Former Smoker eCW1 ([facility]) Smoking 07/28/2020 12:00:00 AM EST Former Smoker completed Former Smoker eCW1 ([facility]) Smoking 06/22/2020 12:00:00 AM EST Former Smoker completed Former Smoker eCW1 ([facility]) Smoking 06/22/2020 12:00:00 AM EST Former Smoker completed Former Smoker eCW1 ([facility]) Smoking 06/22/2020 12:00:00 AM EST Former Smoker completed Former Smoker eCW1 ([facility]) Smoking 06/22/2020 12:00:00 AM EST Former Smoker completed Former Smoker eCW1 ([facility]) Smoking 05/25/2020 12:00:00 AM EST Former Smoker completed Former Smoker eCW1 ([facility]) Smoking 05/25/2020 12:00:00 AM EST Former Smoker completed Former Smoker eCW1 ([facility]) Smoking 05/25/2020 12:00:00 AM EST Former Smoker completed Former Smoker eCW1 ([facility]) Smoking 05/25/2020 12:00:00 AM EST Former Smoker completed Former Smoker eCW1 ([facility]) Smoking 04/19/2020 02:23:42 PM EDT Ex-smoker (finding) complet ed Ex-smoker (finding) [facility] (Vernon Ken MD [facility]) Smoking 03/18/2020 02:10:37 PM EDT Ex-smoker (finding) complet ed Ex-smoker (finding) [facility] (Vernon Ken MD [facility]) Smoking 09/22/2019 12:00:00 AM EST Non Smoker completed Non Smoke r MEDENT ([facility], ) Smoking 07/31/2019 10:25:53 AM EST Ex-smoker (finding) complet ed Ex-smoker (finding) [facility] (Vernon Ken MD [facility]) Vital Signs ID Date Data Source UNK Name Value Range Interpretation Code Description Data Source(s) Diastolic blood pressure 64 mm[Hg] 64 mm[Hg] eCW1 ([facility]) Systolic blood pressure 126 mm[Hg] 126 mm[Hg] e CW1 ([facility]) Body temperature 98.5 [degF] 98.5 [degF] eCW1 ( [facility]) Respiratory rate 20 /min 20 /min eCW1 ([facility]) Heart rate 77 /min 77 /min eCW1 ([facility]) Body mass index (BMI) [Ratio] 46.05 kg/m2 46.05 kg/m2 W1 ([facility]) Body height 70 [in_i] 70 [in_i] W1 ([facility]) Body weight 321 [lb_av] 321 [lb_av] W1 ([facility]) Body surface area Derived from formula 2.54 m2 2.54 m2 MEDENT ([facility], ) Body weight 147.420 kg 147.420 kg MEDENT ([facility], ) [employer] body weight 160 [lb_av] 160 [lb_av] MEDEN T ([facility]) Body mass index (BMI) [Ratio] 48.0 kg/m2 48.0 k g/m2 [facility] Body weight 325.00 [lb_av] 325.00 [lb_av] MEDEN T ([facility]) Body height 69 [in_i] 69 [in_i] [facility] ([facility]) 5'9" Heart rate 76 /min 76 /min [facility] ([facility]) Diastolic blood pressure 56 mm[Hg] 56 mm[Hg] MEDENT ([facility]) Systolic blood pressure 108 mm[Hg] 108 mm[Hg] [facility] Body surface area Derived from formula 2.45 m2 2.45 m2 [facility] ([facility]) Body weight 136.080 kg 136.080 kg [facility] ([facility]) [employer] body weight 160 [lb_av] 160 [lb_av] MEDEN T ([facility]) Body mass index (BMI) [Ratio] 44.3 kg/m2 44.3 k g/m2 [facility] ([facility]) Body weight 300.00 [lb_av] 300.00 [lb_av] [facility] ([facility]) Stated Body height 69 [in_i] 69 [in_i] [facility] ([facility]) 5'9" Diastolic blood pressure 69 mm[Hg] 69 mm[Hg] [facility] ([facility]) Systolic blood pressure 139 mm[Hg] 139 mm[Hg] M EDENT ([facility]) Diastolic blood pressure 63 mm[Hg] 63 mm[Hg] eCW1 ([facility]) Systolic blood pressure 129 mm[Hg] 129 mm[Hg] e CW1 ([facility]) Body temperature 97.6 [degF] 97.6 [degF] eCW1 ( [facility]) Respiratory rate 20 /min 20 /min eCW1 ([facility]) Heart rate 111 /min 111 /min eCW1 ([facility]) Body mass index (BMI) [Ratio] 47.03 kg/m2 47.03 kg/m2 eCW1 ([facility]) Body height 70 [in_i] 70 [in_i] eCW1 ([facility]) Body weight 327.8 [lb_av] 327.8 [lb_av] eCW1 ([facility]) Diastolic blood pressure 83 mm[Hg] 83 mm[Hg] eCW1 ([facility]) Systolic blood pressure 130 mm[Hg] 130 mm[Hg] e CW1 ([facility]) Body temperature 97.9 [degF] 97.9 [degF] eCW1 ( [facility]) Respiratory rate 19 /min 19 /min eCW1 ([facility]) Heart rate 83 /min 83 /min eCW1 ([facility]) Body mass index (BMI) [Ratio] 47.49 kg/m2 47.49 kg/m2 eCW1 ([facility]) Body height [in_i] eCW1 ([facility]) Body weight 331 [lb_av] 331 [lb_av] eCW1 ([facility]) Diastolic blood pressure 50 mm[Hg] 50 mm[Hg] eCW1 ([facility]) Systolic blood pressure 153 mm[Hg] 153 mm[Hg] e CW1 ([facility]) Body temperature 98.7 [degF] 98.7 [degF] eCW1 ( [facility]) Respiratory rate 18 /min 18 /min eCW1 ([facility]) Heart rate 95 /min 95 /min eCW1 ([facility]) Body mass index (BMI) [Ratio] 43.61 kg/m2 43.61 kg/m2 W1 ([facility]) Body height [in_i] eCW1 ([facility]) Body weight 304 [lb_av] 304 [lb_av] eCW1 ([facility]) Diastolic blood pressure 70 mm[Hg] 70 mm[Hg] eCW1 ([facility]) Systolic blood pressure 150 mm[Hg] 150 mm[Hg] e CW1 ([facility]) Body temperature 98.2 [degF] 98.2 [degF] eCW1 ( [facility]) Respiratory rate 18 /min 18 /min eCW1 ([facility]) Heart rate 84 /min 84 /min eCW1 ([facility]) Body mass index (BMI) [Ratio] 41.52 kg/m2 41.52 kg/m2 eCW1 ([facility]) Body height [in_us] eCW1 ([facility]) Body weight Measured 289.4 [lb_av] 289.4 [lb_av ] eCW1 ([facility]) Body surface area Derived from formula 2.45 m2 2.45 m2 [facility] ([facility], ) Body weight 136.080 kg 136.080 kg [facility] [facility] body weight 160 [lb_av] 160 [lb_av] MEDEN T ([facility]) Body mass index (BMI) [Ratio] 44.3 kg/m2 44.3 k g/m2 [facility] ([facility]) Body weight 300.00 [lb_av] 300.00 [lb_av] MEDEN T ([facility], ) Body height 69 [in_i] 69 [in_i] [facility] ([facility]) 5'9" Diastolic blood pressure 70 mm[Hg] 70 mm[Hg] [facility] ([facility], ) Systolic blood pressure 160 mm[Hg] 160 mm[Hg] M EDENT ([facility], ) Diastolic blood pressure 80 mm[Hg] 80 mm[Hg] eCW1 ([facility]) Systolic blood pressure 140 mm[Hg] 140 mm[Hg] e CW1 ([facility]) Body temperature 98.1 [degF] 98.1 [degF] eCW1 ( [facility]) Respiratory rate 20 /min 20 /min eCW1 ([facility]) Heart rate 88 /min 88 /min eCW1 ([facility]) Body mass index (BMI) [Ratio] 42.32 kg/m2 42.32 kg/m2 eCW1 ([facility]) Body height [in_us] eCW1 ([facility]) Body weight Measured 295 [lb_av] 295 [lb_av] eC W1 ([facility]) Diastolic blood pressure 78 mm[Hg] 78 mm[Hg] eCW1 ([facility]) Systolic blood pressure 148 mm[Hg] 148 mm[Hg] e CW1 ([facility]) Body temperature 97.5 [degF] 97.5 [degF] eCW1 ( [facility]) Respiratory rate 18 /min 18 /min eCW1 ([facility]) Heart rate 65 /min 65 /min eCW1 ([facility]) Body mass index (BMI) [Ratio] 43.39 kg/m2 43.39 kg/m2 eCW1 ([facility]) Body height [in_us] eCW1 ([facility]) Body weight Measured 302.4 [lb_av] 302.4 [lb_av ] eCW1 ([facility]) Patient Treatment Plan of Care Planned Activity Planned Date Details Description Data Source (s) Tamsulosin hydrochloride 0.4 MG Oral Capsule 07/04/2020 12:00:00 AM EST eCW1 ([facility]) Tamsulosin hydrochloride 0.4 MG Oral Capsule 07/04/2020 12:00:00 AM EST eCW1 ([facility]) Glucometer 07/29/2019 12:00:00 AM EST e CW1 ([facility]) 24 HR Glipizide 2.5 MG Extended Release Oral Tablet 07/07/20 12:00:00 AM EST eCW1 ([facility])
--- OUTSIDE RECORDS SUMMARY | 2020-08-05 10:10 | CCD ---
Author Author [facility] Organization [facility] Address Unknown Phone Unavailable Care Team Providers Care Snack Bar Cook Name Role Phone Gabriel Ng Unavailable PROBLEMS Type Condition ICD9-CM Code MRT39-SK Code Onset Dates Condition S tatus SNOMED Code Notes Problem Prostate cancer C61 Active 145471177 Problem Atrial fibrillation, unspecified type I48.91 Ac tive 17037978 Problem Hepatic cirrhosis, unspecified hepatic cirrhosis type K74.60 Active 47162579 Problem Other specified disorders of kidney and ureter N28 .89 Active 415050546 Problem Iron deficiency E61.1 Active 11795539 Problem Personal history of malignant neoplasm of prostate Z85.46 Active 354004329 Problem CKD (chronic kidney disease), stage 4 (severe) N18 .4 Active 787998126 Problem Influenza vaccination declined Z28.21 Active 3 89217265 Problem Dyslipidemia E78.5 Active 480953563 Problem Gout, unspecified cause, unspecified chronicity, unspecified site M10.9 Active 87744716 Problem Other specified hypothyroidism E03.8 Active 4 1818032 Problem Non-pressure chronic ulcer o f other part of left lower leg with fat layer exposed L97.822 Active 486776053 Problem Lymphedema I89.0 Active 362417781 Problem Chronic venous hypertension (idiopathic) with ulcer of left lower extremity I87.312 Active 275570288 Problem Non-pressure chronic ulcer o f other part of right lower leg with fat layer exposed L97.812 Active 523014332 Problem Hypothyroidism, unspecified type E03.9 Active 92067298 Problem Chronic venous hypertension (idiopathic) with ulcer of right lower extremity I87.311 Active 054048989 Problem Seborrheic dermatitis L21.9 Active 37222901 Problem 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 Active 359007089 Problem Hydroureter N13.4 Active 17252862 Problem Other iron deficiency anemia D50.8 Active 872 59578 Problem S/P right hemicolectomy Z90.49 Active 87210559 6 Problem Chronic kidney disease, stage 4 (severe) N18.4 Active 196468922 Problem Anticoagulant long-term use Z79.01 Active 7111 79453 Problem Type 2 diabetes mellitus with diabetic chronic kidney disease E11.22 Active 04724185 Problem Benign prostatic hyperplasia , unspecified whether lower urinary tract symptoms present N40.0 Active 852794824 Problem Type 2 diabetes mellitus with other circulatory complicati on E11.59 Active 937908539 Problem Essential hypertension I10 Active 31200987 Problem Urge incontinence N39.41 Active 34538236 ALLERGIES Allergen (clinical drug ingredient) Drug/Non Drug Allergy do cumented on EMR Reaction Allergy Type Onset Date Status oysters Hives Non Drug Allergy Active ENCOUNTERS from 1938 to 2020-05-31 Encounter Location Date Provider Diagnosis [facility] [address] [place] [address] May, Gabriel Ng CKD (chronic kidney disease), stage 4 (s evere) N18.4 ; Anemia, unspecified type D64.9 and Atrial fibrillation, unspecified type I48.91 IMMUNIZATIONS Vaccine Route Administration Date Status Influenza [...] Education Language: Question Answer Notes Languages spoken: Wallisian Mosque: Question Answer Notes Mosque 03 Anabaptism Drug and Alcohol Question Answer [...] Information RESULTS No Results REASON FOR VISIT Cbc MEDICAL (GENERAL) HISTORY Type Description Date Medical History CKDIV: Chronic kidney diseas e, meds from nephro include torsemide, vitamin B12, with furosemide and lisinopril and spironolactone recently stopped by the leather scraper; November 2017 switched by nephrology to torsemide [...] 02/12/2019 Hospitalization History surgery related Hospitalization History [facility] - hematuria 09/2018 Hospitalization History [facility] 12/22/18-12/25/18 Goals Section No Information Health Concerns No Information MEDICAL EQUIPMENT No Information MENTAL STATUS No Information FUNCTIONAL STATUS No Information ASSESSMENTS Encounter Date Diagnosis Notes May, Atrial fibrillation, unspecified type (I CD-10 - I48.91) May, Anemia, unspecified type (ICD-10 - D64.9 ) May, CKD (chronic kidney disease), stage 4 (s evere) (ICD-10 - N18.4) PLAN OF TREATMENT Medication Medication Name Sig Start Date Stop Date Metoprolol Succinate ER 50 MG 1 tablet Orally Once a day for 90 Treatment Notes Test Name Order Date CBC with Differential 2020-05-31 Basic Metabolic Profile (BMP) 2020-05-31 Next Appt Details Provider Name:Rosalie Byron Biswas, 2020-05-24 4 11:30:00 AM, [address], [place], [address], Insurance Providers Payer Name Payer Address Payer Phone Insured Name Patient Relati onship to Insured Coverage Start Date Coverage End Date [facility] [address] [address] [facility] [address] [phone] REBECCA JAUREGUI self
--- OUTSIDE RECORDS SUMMARY | 2020-08-05 10:10 | CCD ---
Author Author [facility] Organization [facility] Address Unknown Phone Unavailable Care Team Providers Care Insole Channeler Name Role Phone Gabriel Ng Unavailable PROBLEMS Type Condition ICD9-CM Code PHQ44-DO Code Onset Dates Condition S tatus SNOMED Code Notes Problem Prostate cancer C61 Active 353866850 Problem Atrial fibrillation, unspecified type I48.91 Ac tive 46198939 Problem Hepatic cirrhosis, unspecified hepatic cirrhosis type K74.60 Active 49884038 Problem Other specified disorders of kidney and ureter N28 .89 Active 558684008 Problem Iron deficiency E61.1 Active 37575924 Problem Personal history of malignant neoplasm of prostate Z85.46 Active 324144197 Problem CKD (chronic kidney disease), stage 4 (severe) N18 .4 Active 649442323 Problem Influenza vaccination declined Z28.21 Active 3 86432884 Problem Dyslipidemia E78.5 Active 898642871 Problem Gout, unspecified cause, unspecified chronicity, unspecified site M10.9 Active 03127048 Problem Other specified hypothyroidism E03.8 Active 4 7459853 Problem Non-pressure chronic ulcer o f other part of left lower leg with fat layer exposed L97.822 Active 052232204 Problem Lymphedema I89.0 Active 733523296 Problem Chronic venous hypertension (idiopathic) with ulcer of left lower extremity I87.312 Active 691297465 Problem Non-pressure chronic ulcer o f other part of right lower leg with fat layer exposed L97.812 Active 623277843 Problem Hypothyroidism, unspecified type E03.9 Active 23858073 Problem Chronic venous hypertension (idiopathic) with ulcer of right lower extremity I87.311 Active 960250224 Problem Seborrheic dermatitis L21.9 Active 86688332 Problem 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 Active 692672827 Problem Hydroureter N13.4 Active 90618391 Problem Other iron deficiency anemia D50.8 Active 876 60802 Problem S/P right hemicolectomy Z90.49 Active 51016872 6 Problem Chronic kidney disease, stage 4 (severe) N18.4 Active 414674354 Problem Anticoagulant long-term use Z79.01 Active 7111 72802 Problem Type 2 diabetes mellitus with diabetic chronic kidney disease E11.22 Active 28852679 Problem Benign prostatic hyperplasia , unspecified whether lower urinary tract symptoms present N40.0 Active 194577469 Problem Type 2 diabetes mellitus with other circulatory complicati on E11.59 Active 638802061 Problem Essential hypertension I10 Active 55965171 Problem Urge incontinence N39.41 Active 67733057 ALLERGIES Allergen (clinical drug ingredient) Drug/Non Drug Allergy do cumented on EMR Reaction Allergy Type Onset Date Status oysters Hives Non Drug Allergy Active ENCOUNTERS from 1940 to 2020-06-02 Encounter Location Date Provider Diagnosis [facility] [address] [place] [address] May, Gabriel Ng Atrial fibrillation, unspecified type I4 8.91 ; Shortness of breath R06.02 ; Lymphedema I89.0 ; Hypothyroidism, unspecified type E03.9 and Chronic kidney disease, stage 4 (severe) N18.4 IMMUNIZATIONS Vaccine Route Administration Date Status Influenza [...] Education Language: Question Answer Notes Languages spoken: Emirati Episcopalian: Question Answer Notes Episcopalian 03 Sikh Drug and Alcohol Question Answer Notes Total [...] FOR REFERRAL No Information VITAL SIGNS Weight 304 lbs May, Height 70" in May, BMI 43.61 kg/m2 May, Heart Rate 95 /min May, Respiratory Rate 18 /min May, Temperature 98.7 degrees Fahrenheit May, Oximetry 98% May, Blood pressure systolic 153 mm Hg May, Blood pressure diastolic 50 mm Hg May, MEDICATIONS Medication SIG (Take, Route, Frequency, Duration) [...] day for 90 day (s) Active PROCEDURES Procedure Date Ordered Result Body Site ELECTROCARDIOGRAM, COMPLETE EKG 2020-05-25 N/A RESULTS Component Value Reference Range CBC with Differential Reviewed date:06/02/2020 13:27:05 Interpretation:Hgb 7.2 Performing Lab:[facility] LABORATORY [address] [facility] [address] [address] , ,[place] [address] WHITE BLOOD COUNT 4.4 4.0-10.0 RED BLOOD COUNT 2.43 4.30-6.10 HEMOGLOBIN 7.2 13.5-17.5 HEMATOCRIT 25.3 42.0-52.0 MEAN CORPUSCULAR VOLUME 104.1 80.0-96.0 MEAN CORPUSCULAR HEMOGLOBIN 29.6 27.0-33.0 MEAN CORPUSCULAR HGB CONC 28.5 32.0-36.5 RED CELL DISTRIBUTION WIDTH 15.9 11.5-14.5 PLATELET COUNT, AUTOMATED 125 150-450 NEUTROPHILS % 75.7 36.0-66.0 LYMPH % 7.1 24.0-44.0 MONO % 9.8 0.0-5.0 EOS % 6.2 0.0-3.0 BASO % 0.5 0.0-1.0 NEUTROPHILS # 3.3 1.5-8.5 LYMPH # 0.3 1.5-5.0 MONO # 0.4 0.0-0.8 EOS # 0.3 0.0-0.5 BASO # 0.0 0.0-0.2 Comprehensive Metabolic Profile (CMP) Reviewed date:06/02/2020 13:27:05 Interpretation:Cr 3.28 Performing Lab:[facility] LABORATORY [address] [address] , ,[place] [address] GLUCOSE, FASTING 132 70-100 BLOOD UREA NITROGEN 91 7-18 CREATININE FOR GFR 3.28 0.70-1.30 GLOMERULAR FILTRATION RATE 19.4 >35 SODIUM LEVEL 138 136-145 POTASSIUM SERUM 3.8 3.5-5.1 CHLORIDE LEVEL 99 98-107 CARBON DIOXIDE LEVEL 31 21-32 CALCIUM LEVEL 8.7 8.8-10.2 AST/SGOT 20 7-37 ALT/SGPT 18 12-78 ALKALINE PHOSPHATASE 83 45-117 BILIRUBIN,TOTAL 0.4 0.2-1.0 TOTAL PROTEIN 7.9 6.4-8.2 ALBUMIN 3.0 3.2-5.2 ALBUMIN/GLOBULIN RATIO 0.6 TSH Reviewed date:06/02/2020 13:27:05 Interpretation:1.940 Performing Lab:[facility], [facility] [address] [facility] [address] , ,[place] [address] THYROID STIMULATING HORMONE 1.940 0.358-3.740 REASON FOR VISIT F/U MEDICAL (GENERAL) HISTORY Type Description Date Medical History CKDIV: Chronic kidney diseas e, meds from nephro include torsemide, vitamin B12, with furosemide and lisinopril and spironolactone recently stopped by the lead janitor; November 2017 switched by nephrology to torsemide [...] 02/12/2019 Hospitalization History surgery related Hospitalization History [facility] - hematuria 09/2018 Hospitalization History [facility] 12/22/18-12/25/18 Goals Section No Information Health Concerns No Information MEDICAL EQUIPMENT No Information MENTAL STATUS No Information FUNCTIONAL STATUS No Information ASSESSMENTS Encounter Date Diagnosis Notes May, Lymphedema (ICD-10 - I89.0) May, Shortness of breath (ICD-10 - R06.02) May, Chronic kidney disease, stage 4 (severe) (ICD-10 - N18.4) May, Hypothyroidism, unspecified type (ICD-10 - E03.9) May, Atrial fibrillation, unspecified type (I CD-10 - I48.91) PLAN OF TREATMENT Medication Medication Name Sig Start Date Stop Date Metoprolol Succinate ER 50 MG 1 tablet Orally Once a day for 90 Treatment Notes Assessment Notes Clinical Notes Atrial fibrillation, unspecified type Pa tient notes history of atrial fibrilation. Per notes received last visit January, patient thinks may have been sooner. Taking medication as prescribed. Patient's heart rate may have been above 100 this AM, did not recall exact number. Recommend follow up soon with cardiology. Shortness of breath Shortness of breath etiology not clear. Ordering imaging and blood work. May be due to history of atrial fibrilation, recommend patient take medication as prescribed and follow up with cardiology. No fevers, chills or symptoms of illness however ordering xray for possible pneumonia and/or fluid overload. If any cause noted start treatment. EKG performed and notes similar to previous, Rate 102, atrial fibrilation, similar EKG 11/18/2018. Recommend patient follow up with cardiology. Call office if symptoms worsen. Lymphedema Lower extremity swel ling noted on exam. May be due to history of lymphadema or due to fluid overload. Monitor for now. Hypothyroidism, unspecified type Order r epeat TSH. TSH was elevated on recent labs a few months ago, if remains elevated may suggest increase dose of levothyroxine. Chronic kidney disease, stage 4 (severe) Repeat lab to monitor kidney function. Follows up with nephrology. Has appointment with them in a few weeks. Treatment Notes Test Name Order Date [facility] Chest, 2 view (PA\\Lat) 2020-06-02 Next Appt Details pending labs/ imaging Reason: Provider Name:Rosalie Biswas, 2020-05-24 4 11:30:00 AM, [address], [place], [address], Insurance Providers Payer Name Payer Address Payer Phone Insured Name Patient Relati onship to Insured Coverage Start Date Coverage End Date [facility] [address] [address] [facility] [phone] REBECCA JAUREGUI self
--- OUTSIDE RECORDS SUMMARY | 2020-08-05 10:10 | CCD | Continuity of Care Document ---
Author Author Jeffrey JADE MD Organization Unknown Address [address], [address] [place] [address] Phone [phone] Care Team Providers Care On Car Supervisor Name Role Phone Lanie Meng M.D. AUTM Gabriel Ng D.O. AUTM [phone] Problems Description No Active Problems Social History Type Date Description Comments Sex Unknown ETOH Use Denies alcohol use Tobacco Use Start: Unknown Non Smoker Recreational Drug Use Denies Drug Use Smoking Status Reviewed: 09/22/19 Non Smoker Allergies, Adverse Reactions, Alerts Description No Known Drug Allergies Medications Active Medications SIG Qnty Indications Ordering Provide r Date Imodium A-D 2mg Tablets 1-2 tabs every 4-6 hours as needed 90tabs D50.9 Vernon Holly MD 09/04/2017 Iron 325(65Fe) mg Tablets 1 by mouth bid Unknown Allopurinol 300mg Tablets 1 by mouth every day Unknown Metoprolol Succinate ER 50mg Tablets ER 24HR 1 by mouth every day 30tabs Unknown 000 Levothyroxine Sodium 175mg Tablets 1 by mouth every day Unknown Lovastatin 20mg Tablets hs Unknown Vitamin D 1000Unit Tablets 1 by mouth every day Unknown Calcium 600 + D [id number] Tab lets once a day Unknown Torsemide 100mg Tablets 1 p[o daily Unknown Klor-Con 20Meq Tablets ER lissette ry day Unknown Glipizide ER 2.5mg Tablets ER 24HR every day Unknown Metolazone 2.5mg Tablets 3X P er Week Unknown Oxybutynin Chloride ER 10mg Tablets ER 24HR 1 by mouth every day Unknown 000 Finasteride 5mg Tablets 1 by mouth every day Unknown Immunizations Description No Information Available Vital Signs Date Vital Result Comment 06/28/2020 3:25pm BP Systolic 139 mmHg BP Diastolic 69 mmHg Height 69 inches 5'9" Weight 300.00 lb Stated BMI (Body Mass Index) 44.3 kg/m2 [place] Body Weight 160 lb Weight 136.080 kg BSA (Body Surface Area) 2.45 m2 09/22/2019 2:04pm BP Systolic 160 mmHg BP Diastolic 70 mmHg Height 69 inches 5'9" Weight 300.00 lb BMI (Body Mass Index) 44.3 kg/m2 [place] Body Weight 160 lb Weight 136.080 kg BSA (Body Surface Area) 2.45 m2 Results Description No Information Available Procedures Description No Information Available Medical Devices Description No Information Available Encounters Description No Information Available Assessments Description No Information Available Plan of Treatment Future Appointment(s):* 06/30/2020 1:00 pm - Gerhard Aceves JR, MD at [facility] 09/22/2019 - Lina Jade MD* N18.4 Chronic kidney disease, stage 4 (severe) Functional Status Description No Information Available Mental Status Description No Information Available Referrals Refer to Reason for Referral Status Appt Date Lina Jade MD EVAL [facility] Scheduled 06/28/[address] [place] [address], [address] [place] [address] [phone]
--- OUTSIDE RECORDS SUMMARY | 2020-08-05 10:10 | CCD ---
Author Author [facility] Organization [facility] Address Unknown Phone Unavailable Care Team Providers Care Gluten Settling Tender Name Role Phone Gabriel Ng Unavailable PROBLEMS Type Condition ICD9-CM Code HNP86-VH Code Onset Dates Condition S tatus SNOMED Code Notes Problem Prostate cancer C61 Active 409186947 Problem Atrial fibrillation, unspecified type I48.91 Ac tive 73077254 Problem Hepatic cirrhosis, unspecified hepatic cirrhosis type K74.60 Active 29382394 Problem Other specified disorders of kidney and ureter N28 .89 Active 423934649 Problem Iron deficiency E61.1 Active 20135117 Problem Personal history of malignant neoplasm of prostate Z85.46 Active 156176090 Problem CKD (chronic kidney disease), stage 4 (severe) N18 .4 Active 278979718 Problem Influenza vaccination declined Z28.21 Active 3 53864028 Problem Dyslipidemia E78.5 Active 795370802 Problem Gout, unspecified cause, unspecified chronicity, unspecified site M10.9 Active 07430839 Problem Other specified hypothyroidism E03.8 Active 4 4596859 Problem Non-pressure chronic ulcer o f other part of left lower leg with fat layer exposed L97.822 Active 510045755 Problem Lymphedema I89.0 Active 881799335 Problem Chronic venous hypertension (idiopathic) with ulcer of left lower extremity I87.312 Active 554166586 Problem Non-pressure chronic ulcer o f other part of right lower leg with fat layer exposed L97.812 Active 253818981 Problem Hypothyroidism, unspecified type E03.9 Active 40329820 Problem Chronic venous hypertension (idiopathic) with ulcer of right lower extremity I87.311 Active 719857626 Problem Seborrheic dermatitis L21.9 Active 43187143 Problem 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 Active 139102927 Problem Hydroureter N13.4 Active 83050958 Problem Other iron deficiency anemia D50.8 Active 871 88124 Problem S/P right hemicolectomy Z90.49 Active 46440848 6 Problem Chronic kidney disease, stage 4 (severe) N18.4 Active 760485872 Problem Anticoagulant long-term use Z79.01 Active 7111 76175 Problem Type 2 diabetes mellitus with diabetic chronic kidney disease E11.22 Active 96965014 Problem Benign prostatic hyperplasia , unspecified whether lower urinary tract symptoms present N40.0 Active 910495921 Problem Type 2 diabetes mellitus with other circulatory complicati on E11.59 Active 473050036 Problem Essential hypertension I10 Active 30447033 Problem Urge incontinence N39.41 Active 08126260 ALLERGIES Allergen (clinical drug ingredient) Drug/Non Drug Allergy do cumented on EMR Reaction Allergy Type Onset Date Status oysters Hives Non Drug Allergy Active ENCOUNTERS from 1940 to 2020-06-02 Encounter Location Date Provider Diagnosis [facility] [address] [place] [address] May, Gabriel Ng IMMUNIZATIONS Vaccine Route [...] Education Language: Question Answer Notes Languages spoken: Burmese Jew: Question Answer Notes Jew 03 Mu-Ism Drug and Alcohol Question Answer Notes Total [...] Information RESULTS No Results REASON FOR VISIT labs MEDICAL (GENERAL) HISTORY Type Description Date Medical History CKDIV: Chronic kidney diseas e, meds from nephro include torsemide, vitamin B12, with furosemide and lisinopril and spironolactone recently stopped by the senior project controls specialist; November 2017 switched by nephrology to torsemide [...] 02/12/2019 Hospitalization History surgery related Hospitalization History [facility] - hematuria 09/2018 [facility] [...] Name:Rosalie Matthews Jagjittal, 2019-11-2 4 11:30:00 AM, [address], [place], [address], Insurance Providers Payer Name Payer Address Payer Phone Insured Name Patient Relati onship to Insured Coverage Start Date Coverage End Date [facility] [facility] [address] [address] [facility] [address] REBECCA JAURGEUI self
--- OUTSIDE RECORDS SUMMARY | 2020-08-05 10:10 | CCD ---
Author Author [facility] Organization [facility] Address Unknown Phone Unavailable Care Team Providers Care Rn Radiation Name Role Phone Gabriel Ng Unavailable PROBLEMS Type Condition ICD9-CM Code SFH12-NZ Code Onset Dates Condition S tatus SNOMED Code Notes Problem Iron deficiency E61.1 Active 86553774 Problem CKD (chronic kidney disease), stage 4 (severe) N18 .4 Active 148117281 Problem Other specified disorders of kidney and ureter N28 .89 Active 825258595 Problem Anticoagulant long-term use Z79.01 Active 7165 54283 Problem Personal history of malignant neoplasm of prostate Z85.46 Active 303408278 Problem Type 2 diabetes mellitus with diabetic chronic kidney disease E11.22 Active 75802782 Problem S/P right hemicolectomy Z90.49 Active 86977386 6 Problem Hydroureter N13.4 Active 04004331 Problem Prostate cancer C61 Active 825638420 Problem 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 Active 350690397 Problem Atrial fibrillation, unspecified type I48.91 Ac tive 50323752 Problem Hepatic cirrhosis, unspecified hepatic cirrhosis type K74.60 Active 21347128 Problem Non-pressure chronic ulcer o f other part of right lower leg with fat layer exposed L97.812 Active 131805600 Problem Non-pressure chronic ulcer o f other part of left lower leg with fat layer exposed L97.822 Active 620046241 Problem Chronic venous hypertension (idiopathic) with ulcer of right lower extremity I87.311 Active 728581802 Problem Chronic venous hypertension (idiopathic) with ulcer of left lower extremity I87.312 Active 614790189 Problem Dyslipidemia E78.5 Active 717797639 Problem Hypothyroidism, unspecified type E03.9 Active 39855468 Problem Seborrheic dermatitis L21.9 Active 66552159 Problem Influenza vaccination declined Z28.21 Active 3 71979778 Problem Benign prostatic hyperplasia , unspecified whether lower urinary tract symptoms present N40.0 Active 913161981 Problem Type 2 diabetes mellitus with other circulatory complicati on E11.59 Active 664060176 Problem Essential hypertension I10 Active 62961928 Problem Stage 4 chronic kidney disease N18.4 Active 4 38611881 Problem Gout, unspecified cause, unspecified chronicity, unspecified site M10.9 Active 88291323 Problem Iron deficiency anemia, unspecified iron deficiency an emia type D50.9 Active 19811560 Problem Other specified hypothyroidism E03.8 Active 4 2325552 Problem Lymphedema I89.0 Active 172037539 Problem Urge incontinence N39.41 Active 17872998 Problem Other iron deficiency anemia D50.8 Active 875 00825 Problem Chronic kidney disease, stage 4 (severe) N18.4 Active 635969297 Problem Acute on chronic congestive heart failure, unspecified heart failure type I50.9 Active 523016496 ALLERGIES Allergen (clinical drug ingredient) Drug/Non Drug Allergy do cumented on EMR Reaction Allergy Type Onset Date Status oysters Hives Non Drug Allergy Active ENCOUNTERS from 1940 to 2020-06-23 Encounter Location Date Provider Diagnosis [facility] [address] [place] [address], [facility] discharge follow-up Z09 ; Acute on chronic congestive heart failure, unspecified heart failure type I50.9 ; Hypokalemia E87.6 ; Stage 4 chronic kidney disease N18.4 and Iron deficiency anemia, unspecified iron deficiency anemia type D50.9 IMMUNIZATIONS Vaccine Route Administration Date Status Influenza [...] Education Language: Question Answer Notes Languages spoken: French Holiness: Question Answer Notes Holiness 03 Religion Drug and Alcohol Question Answer Notes Total [...] FOR REFERRAL No Information VITAL SIGNS Weight 331 lbs May, Height 70" in May, BMI 47.49 kg/m2 May, Heart Rate 83 /min May, Respiratory Rate 19 /min May, Temperature 97.9 degrees Fahrenheit May, Oximetry 97 May, Blood pressure systolic 130 mm Hg May, Blood pressure diastolic 83 mm Hg May, MEDICATIONS Medication SIG (Take, Route, Frequency, Duration) Notes Start Da te End Date Status Torsemide 100 MG 1/2 tablet Orally bid Active Metolazone 2.5 MG 1 tablet Orally on Sunday Active ICaps Plus 1tab Orally daily for 30 day(s) Active GlipiZIDE ER 2.5 MG 1 tablet with breakfast Orally Once a day for 90 days Active Flomax 0.4 MG 1 capsule 30 minutes after t he same meal each day Orally Once a day for 90 days May, Active Levothyroxine Sodium 175 MCG 1 tablet on an empty stom ach in the morning Orally Once a day for 90 day(s) Active Metoprolol Succinate ER 50 MG 1 tablet Orally Once a day for 90 Active Stool Softener Laxative 8.6-50 MG 1 tab Orally bid Active Potassium Chloride ER 10 MEQ 1 tablet with food Orally Once a day Active Protonix 40 MG 1 tablet Orally Daily Active Spironolactone 25 MG 1 tablet Orally 2 pm Active OneTouch Test - as directed In Vitro E11.22 check daily for 30 d ay(s) Aug, Active Ferrous Gluconate 324 (38 Fe) MG 1 tab Orally Daily Active Glucometer E11.9 check sugars once a day for 30 day(s) Jul, Active Sucralfate 1 GM 1 tablet on an empty stomach Orally with meals a nd before bed Active Vitamin D3 50 MCG (1999 UT) 1 capsule Orally Once a day Active Baby Aspirin 81 MG 1 tablet Orally Once a day for 30 day(s) Not-Taking Allopurinol 300 MG 1 tablet Orally Once a day Active PROCEDURES No Information RESULTS No Results REASON FOR VISIT symptomatic anemia MEDICAL (GENERAL) HISTORY Type Description Date Medical History CKDIV: Chronic kidney diseas e, meds from nephro include torsemide, vitamin B12, with furosemide and lisinopril and spironolactone recently stopped by the bricklayer sewer; November 2017 switched by nephrology to torsemide [...] 02/12/2019 Hospitalization History surgery related Hospitalization History [facility] [place] hemat[place] 09[place] [facility] [place] Hospitalization History Symptomatic An[place] [facility] [place] Goals Section No Information Health Concerns No Information MEDICAL EQUIPMENT No Information MENTAL STATUS No Information FUNCTIONAL STATUS No Information ASSESSMENTS Encounter Date Diagnosis Assessment Notes Treatment Notes Treatm ent Clinical Notes May, Hospital discharge follow-up (ICD-10 - Z09) [place] [facility] [place]. Has not started new medications. 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 Ordering repeat labs in 2 weeks. May, Acute on chronic congestive heart failure, unspecified heart failure type (ICD-10 - I50.9) Follow up with cardiology as scheduled. May, Hypokalemia (ICD-10 - E87.6) Repeat lab in 2 weeks. May, Stage 4 chronic kidney disease (ICD-10 - N18.4) Follow up with nephrology. Repeat lab in 2 weeks. May, Iron deficiency anemia, unsp ecified iron deficiency anemia type (ICD-10 - D50.9) Order repeat lab in 2 weeks. Follow up with nephrology and surgery. PLAN OF TREATMENT Treatment Notes Assessment Notes Clinical Notes Hospital discharge follow-up Patient [facility] [place]. Has not started new medications. 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 Acute on chronic congestive heart failure, unspecified heart failure type Follow up with cardiology as scheduled. Hypokalemia Repeat lab in 2 week s. Stage 4 chronic kidney disease Follow up with nephrology. Repeat lab in 2 weeks. Iron deficiency anemia, unspecified iron deficiency anemia t ype Order repeat lab in 2 weeks. Follow up with nephrology and surgery. Future Test Test Name Order Date CBC with Differential 20200620 Basic Metabolic Profile (BMP) 20200620 Next Appt Details 2 weeks Reason:anemia, low K Provider Name:Gabriel Ng, 2020-07-28 11:00:00 AM, [address] [place], [address], Provider Name:Rosalie Biswas, 2020-11- 4 10:45:00 AM, [address], [place], [address], Follow Up:2 weeksanemia, low K Insurance Providers Payer Name Payer Address Payer Phone Insured Name Patient Relati onship to Insured Coverage Start Date Coverage End Date [facility] [address] [address] [facility] [address] [phone] REBECCA JAUREGUI self
[2020-08-05] MEDS ORDERED: LIDOCAINE 2% 100MG/5ML SDV (FOR ANES.) As Ordered ONE (10:30)
[2020-08-05] MEDS ORDERED: propofoL 200 MG/20 ML VIAL As Ordered ONE ×3 (10:30→12:23)
--- NOTE | 2020-08-05 11:41 | ROOR ---
Patient Name: Jeffrey Chaudhary Procedure Date: 08/05/2020 11:25 AM Date of : 1940 Age: 80 Room: [facility] Gender: Male Note Status: Finalized Procedure: Upper GI endoscopy Indications: Iron deficiency anemia Providers: Gerhard Aceves Jr, MD Referring MD: DAMIR MAE MD Requesting Provider: Medicines: Propofol per Anesthesia Complications: No immediate complications. Procedure: Pre-Anesthesia Assessment: - Prior to the procedure, a History and Physical was performed, and patient medications and allergies were reviewed. The patient is competent. The risks and benefits of the procedure and the sedation options and risks were discussed with the patient. All questions were answered and informed consent was obtained. Patient identification and proposed procedure were verified by the physician and the nurse in the pre-procedure area and in the procedure room. Mental Status Examination: alert and oriented. Airway Examination: normal oropharyngeal airway and neck mobility. Respiratory Examination: clear to auscultation. CV Examination: normal. ASA Grade Assessment: II - A patient with mild systemic disease. After reviewing the risks and benefits, the patient was deemed in satisfactory condition to undergo the procedure. The anesthesia plan was to use moderate sedation / analgesia (conscious sedation). Immediately prior to administration of medications, the patient was re-assessed for adequacy to receive sedatives. The heart rate, respiratory rate, oxygen saturations, blood pressure, adequacy of pulmonary ventilation, and response to care were monitored throughout the procedure. The physical status of the patient was re-assessed after the procedure. The Endoscope was introduced through the mouth, and advanced to the second part of duodenum. The upper GI endoscopy was accomplished without difficulty. The patient tolerated the procedure well. Findings: The upper third of the esophagus, middle third of the esophagus and lower third of the esophagus were normal. Patchy moderately erythematous mucosa without bleeding was found in the gastric body. The gastroesophageal junction, cardia, gastric fundus, gastric antrum, prepyloric region of the stomach and pylorus were normal. The duodenal bulb was normal. Patchy moderate inflammation characterized by congestion (edema), erythema, friability and granularity was found in the first portion of the duodenum. The second portion of the duodenum was normal. Impression: - Normal upper third of esophagus, middle third of esophagus and lower third of esophagus. - Erythematous mucosa in the gastric body. - Normal gastroesophageal junction, cardia, gastric fundus, antrum, prepyloric region of the stomach and pylorus. - Normal duodenal bulb. - Duodenitis. - Normal second portion of the duodenum. - No specimens collected. Recommendation: - Discharge patient to home (ambulatory). - Return to my office at appointment to be scheduled. Procedure Code(s): --- Professional --- 82655, Esophagogastroduodenoscopy, flexible, transoral; diagnostic, including collection of specimen(s) by brushing or washing, when performed (separate procedure) Diagnosis Code(s): --- Professional --- K31.89, Other diseases of stomach and duodenum K29.80, Duodenitis without bleeding D50.9, Iron deficiency anemia, unspecified CPT copyright 2019 [employer]. All rights reserved. The codes documented in this report are preliminary and upon photography sales associate review may be revised to meet current compliance requirements. Gerhard Aceves MD Gerhard Aceves Jr, MD 08/05/2020 11:40:56 AM Electronically signed by Gerhard Aceves Jr, MD Number of Addenda: 0 Note Initiated On: 08/05/2020 11:25 AM Estimated Blood Loss: Estimated blood loss: none.
--- NOTE | 2020-08-05 12:59 | ROOR ---
Patient Name: Jeffrey Chaudhary Procedure Date: 08/05/2020 11:26 AM Date of : 1940 Age: 80 Room: [facility] Gender: Male Note Status: Finalized Procedure: Colonoscopy Indications: Iron deficiency anemia Providers: Gerhard Aceves Jr, MD Referring MD: DAMIR MAE MD Requesting Provider: Medicines: Propofol per Anesthesia Complications: No immediate complications. Procedure: Pre-Anesthesia Assessment: - Prior to the procedure, a History and Physical was performed, and patient medications and allergies were reviewed. The patient is competent. The risks and benefits of the procedure and the sedation options and risks were discussed with the patient. All questions were answered and informed consent was obtained. Patient identification and proposed procedure were verified by the physician and the nurse in the pre-procedure area and in the procedure room. Mental Status Examination: alert and oriented. Airway Examination: normal oropharyngeal airway and neck mobility. Respiratory Examination: clear to auscultation. CV Examination: normal. ASA Grade Assessment: III - A patient with severe systemic disease. After reviewing the risks and benefits, the patient was deemed in satisfactory condition to undergo the procedure. The anesthesia plan was to use moderate sedation / analgesia (conscious sedation). Immediately prior to administration of medications, the patient was re-assessed for adequacy to receive sedatives. The heart rate, respiratory rate, oxygen saturations, blood pressure, adequacy of pulmonary ventilation, and response to care were monitored throughout the procedure. The physical status of the patient was re-assessed after the procedure. The Colonoscope was introduced through the anus and advanced to the ileocolonic anastomosis. The colonoscopy was unusually difficult due to poor bowel prep with stool present. Successful completion of the procedure was aided by lavage. The patient tolerated the procedure well. The quality of the bowel preparation was poor. Findings: The rectum, recto-sigmoid colon, sigmoid colon, descending colon, transverse colon and anastomosis appeared normal. An infiltrative, polypoid and sessile partially obstructing large mass was found in the proximal sigmoid colon. The mass was partially circumferential (involving one-third of the lumen circumference). The mass measured five cm in length. No bleeding was present. Biopsies were taken with a cold forceps for histology. Area was tattooed with an injection of 2 mL of Spot (carbon black). Red blood was found in the rectum, in the recto-sigmoid colon, in the sigmoid colon, in the descending colon and in the transverse colon. Impression: - Preparation of the colon was poor. - The rectum, recto-sigmoid colon, sigmoid colon, descending colon, transverse colon and colonic anastomosis are normal. - Likely malignant partially obstructing tumor in the proximal sigmoid colon. Biopsied. Tattooed. - Blood in the rectum, in the recto-sigmoid colon, in the sigmoid colon, in the descending colon and in the transverse colon. Recommendation: - Discharge patient to home (ambulatory). - Return to my office in 1 week. Procedure Code(s): --- Professional --- 35081, Colonoscopy, flexible; with directed submucosal injection(s), any substance 97239, Colonoscopy, flexible; with biopsy, single or multiple Diagnosis Code(s): --- Professional --- D49.0, Neoplasm of unspecified behavior of digestive system K56.690, Other partial intestinal obstruction K62.5, Hemorrhage of anus and rectum K92.2, Gastrointestinal hemorrhage, unspecified D50.9, Iron deficiency anemia, unspecified CPT copyright 2019 [employer]. All rights reserved. The codes documented in this report are preliminary and upon energy efficiency specialist review may be revised to meet current compliance requirements. Gerhard Aceves MD Gerhard Aceves Jr, MD 08/05/2020 12:58:46 PM Electronically signed by Gerhard Aceves Jr, MD Number of Addenda: 0 Note Initiated On: 08/05/2020 11:26 AM Estimated Blood Loss: Estimated blood loss: none.
[2020-08-05 15:41] LABS: HEMATOCRIT 24.6 % (42.0-52.0); MEAN CORPUSCULAR HEMOGLOBIN 31.3 pg (27.0-33.0); MEAN CORPUSCULAR HGB CONC 28.5 g/dl (32.0-36.5); MEAN CORPUSCULAR VOLUME 109.8 fl (80.0-96.0); RED BLOOD COUNT 2.24 10^6/uL (4.30-6.10); WHITE BLOOD COUNT 3.7 10^3/uL (4.0-10.0)
[2020-08-05 15:44] LABS: PLATELET COUNT, AUTOMATED 94 10^3/uL (150-450)
[2020-08-05 16:08] LABS: BILIRUBIN,TOTAL 0.4 MG/DL (0.2-1.0); CALCIUM LEVEL 8.3 MG/DL (8.8-10.2); CREATININE FOR GFR 3.97 MG/DL (0.70-1.30); GLOMERULAR FILTRATION RATE 15.5 (>35); POTASSIUM SERUM 3.2 MEQ/L (3.5-5.1); TOTAL PROTEIN 7.2 GM/DL (6.4-8.2)
[2020-08-05] MEDS ORDERED: PILL CUTTER 1 EACH XX PRN (17:45)
[2020-08-05] MEDS ORDERED: FUROSEMIDE 100MG/10ML VIAL (J1940) IV ONE (17:45)
[2020-08-05] MEDS: TORSEMIDE 100 MG TAB PO SCH (18:12)
--- NOTE | 2020-08-05 19:09 | HPEPDOC ---
General Date of Admission 08/05/20 Date of Service: Aug 05, 2020 Chief Complaint The patient is a 80-year-old male admitted with a reason for visit of Anemia. Source: Patient, RN/MD History of Present Illness 80 year old male with Morbid obesity, CKD stage 4, Chronic Afib, Ongoing GIB issues from May 2020 with Anemia, CHF was at the hospital today for EGD and colonoscopy for the work up of his GIB. The procedure was prolonged as his colon prep was poor and had to be washed with 3 to 4 liters of saline. He was found to have blood all through out the colon and a large sigmoid mass. While in the recovery area he had an episode of hypotension with Bp in 89/49, his abdomen was very distended and tight and he was in severe discomfort from abdominal pain which he described and tightness and distension. He could not rate the pain but it was located all over the abdomen. He was also tachycardic in afib. Labs showed a Hb of 7.0. It was felet that he was unstable to be discharged so was admitted to the hospital for GIB, acute blood loss anemia and Sigmoid mass. Later on in the recovery areahe was being rolled from side to side several times and after that he passed fairly large amounts of flatus with some relief of the abdominal pain and distension. Home Medications Scheduled Allopurinol (Zyloprim) 300 Mg Tab, 300 MG PO DAILY, (Reported) Ferrous Gluconate (Ferrous Gluconate) 324 Mg Tablet, 324 MG PO DAILY Glipizide (Glipizide ER) 2.5 Mg Tab.er.24, 2.5 MG PO DAILY, (Reported) Levothyroxine Sodium (Levothyroxine Sodium) 175 Mcg Tab, 175 MCG PO DAILY, (Reported) Metolazone (Metolazone) 2.5 Mg Tab, 2.5 MG PO 3XW, (Reported) SUNDAY, SUNDAY, AND SUNDAY Metoprolol Succinate (Metoprolol Succinate) 50 Mg Tab, 50 MG PO DAILY, (Reported) Pantoprazole Sodium (Pantoprazole Sodium) 40 Mg Tablet.dr, 40 MG PO DAILY Potassium Chloride (Potassium Chloride) 10 Meq Tab.er.prt, 1 TAB PO DAILY Spironolactone (Aldactone) 25 Mg Tablet, 25 MG PO DAILY@1400 Sucralfate (Sucralfate) 1 Gm Tablet, 1 GM PO ACHS Tamsulosin HCl (Flomax) 0.4 Mg Capsule, 0.4 MG PO QPM, (Reported) Torsemide (Torsemide) 100 Mg Tablet, 50 MG PO BID Vit A/Vit C/Vit E/Zinc/Copper (Icaps Areds Formula Dr Tablet) 1 Each Tablet.dr, 1 TAB PO DAILY, (Reported) Miscellaneous Medications Cholecalciferol (Vitamin D3) (Vitamin D3) 50 Mcg Tablet, 50 MCG PO, (Reported) Allergies Coded Allergies: Oyster (Verified Allergy, Intermediate, HIVES, 06/01/20) Past Medical History Medical History GIB Anemia Morbid obesity Hypertension. Systolic CHF EF of 50% in 05/2020 Moderate pulmonary hypertension Right heart failure Cirrhosis of liver Thrombocytopenia Chronic Atrial fibrillation not on anticoagulation due to GIB. CKD stage IV, follows with Dr. Meng. NIDDM2. Hyperlipidemia. Hypothyroidism. Chronic venous insufficiency and lymphedema, follows with Dr. Phipps. Gout. Kidney stones. LUTS History of prostate cancer status post radiation about 10-15 years ago. History of radiation cystitis H/o Left ureteral stricture s/p dilatation Bladder cauterization in 04/2013, Cataracts 2014, Right hemicolectomy 2016 with ileocolonic anastomosis for Cecal polyp with high- grade dysplasia. Kidney stone surgery with what sounds like ureteroscopy in 1972. CYSTOSCOPY WITH LEFT RETROGRADE PYLELOGRAM, LEFT URETEROSOCPE 11/2018 CYSTOSCOPY WITH STENT REMOVAL 02/12/2019 Umbilical hernia, incarcerated repaired 2016 Family History Father had kidney cancer and heart disease. Mother had cancer, he is unsure which type, diabetes. 1 brother with Alzheimers. Social History * Smoker: former Smoker Alcohol: occationally Drugs: denies A-FIB/CHADSVASC A-FIB History Current/History of A-Fib/PAF?: Yes Current PO Anticoag Therapy: No Review of Systems Constitutional: Denies: Chills, Fever, Night Sweats Eyes: Denies: Pain, Vision change ENT: Denies: Head Aches, Ear Pain, Dysphagia Skin: Denies: Rash, Lesions, Breakdown Pulmonary: Denies: Dyspnea, Cough Cardiovascular: Reports: Edema; Denies: Chest Pain, Palpitations, Orthopnea, Paroxysmal Noc. Dyspnea, Lt Headedness Gastrointestinal: Reports: Abdominal Pain, Melena, Hematochezia Genitourinary: Reports: Incontinence Hematologic: Reports: Bruising, Petecchia, Purpura Musculoskeletal: Reports: Back Pain Physical Examination General Exam: Positive: Alert, Cooperative, No Acute Distress Eye Exam: Positive: PERRLA, Conjunctiva & lids normal, EOMI; Negative: Sclera icteric ENT Exam: Positive: Atraumatic, Mucous membr. moist/pink, Pharynx Normal Neck Exam: Positive: Supple; Negative: JVD, thyromegaly Chest Exam: Positive: Clear to auscultation, Diminished (overall diminished air entry) Heart Exam: Positive: Tachycardic, Irregular Rhythm, Normal S1, Normal S2; Negative: Bradycardic, Regular Rhythm, Gallops, Murmurs, Rubs Telemetry: Positive: Atrial fibrillation Abdomen Exam: Positive: BS Hyperactive, Soft, Tenderness, Other (distended) Extremity Exam: Positive: Edema, Other (lymphedema); Negative: Clubbing, Cyanosis Neuro Exam: Positive: Normal Speech Psych Exam: Positive: Memory Intact, Oriented x 3 Vital Signs Vital Signs Date Time Temp Pulse Resp B/P (MAP) Pulse Ox O2 Delivery O2 Flow Rate FiO2 08/05/20 13:55 108 20 96/54 (68) 93 Room Air 08/05/20 13:03 96.9 Assessment/Plan 80 year old male with Morbid obesity, CKD stage 4, Chronic Afib, Ongoing GIB issues from May 2020 with Anemia, CHF was at the hospital today for EGD and colonoscopy for the work up of his GIB. The procedure was prolonged as his colon prep was poor and had to be washed with 3 to 4 liters of saline. He was found to have blood all through out the colon and a large sigmoid mass. While in the recovery area he had an episode of hypotension with Bp in 89/49, his abdomen was very distended and tight and he was in severe discomfort from abdominal pain which he described and tightness and distension. He could not rate the pain but it was located all over the abdomen. He was also tachycardic in afib. Labs showed a Hb of 7.0. It was felet that he was unstable to be discharged so was admitted to the hospital for GIB, acute blood loss anemia and Sigmoid mass. GIB with acute Blood loss anemia Due to Sigmoid mass 2 units fo PRBC with lasix in between. Colonoscopy: Likely malignant partially obstructing tumor in the proximal sigmoid colon. Biopsied. Tattooed. Blood in the rectum, in the recto-sigmoid colon, in the sigmoid colon, in the descending colon and in the transverse colon. EGD:- Erythematous mucosa in the gastric body. Normal gastroesophageal junction, cardia, gastric fundus, antrum, prepyloric region of the stomach and pylorus.Normal duodenal bulb. Duodenitis. Dr Aceves will be following. continue PPI, sucralfate. Lasix in between PRBC. MIRIAM on CKD stage 4 Creatinine is slightly worse than baseline will consult nephrology continue torsemide BID and spironolactone Hypokalemia mild will not replace as getting blood and creatinine is close to 4.0 Chronic Afib monitor on telemetry rate controlled No anticoagulation. Systolic CHF continue torsemide bid. Moderate pulmonary hypertension with chronic right heart failure continue diuresis. Thrombocytopenia Looks like Patient has underlying Cirrhosis of liver CT abd in May 2020 showed: . A somewhat irregular liver contour is seen in the left lobe is prominent in the liver question cirrhosis. Also had ascites. Cirrhosis of liver possibly from obesity and chronic hepatic congestion form chronic right heart failure has low platelets. Chronic, nonobstructive left hydronephrosis with previous failure of improvement of renal function with stenting Moderate left-sided hydronephrosis and hydroureter with no obstructive lesion seen. The left ureter is seen to be dilated well into the pelvis 2.3-4 cm are of of the ureterovesical junction. Had CYSTOSCOPY WITH LEFT RETROGRADE PYLELOGRAM, LEFT URETEROSOCPE 11/2018. This did not help with renal functions. He was having persistent pain and bleeding from the stent so it was removed on 02/12/2019 Hypothyroid synthroid Hyperuricemia/gout allopurinol Morbid obesity complicating care. Urge incontinence/ LUTs/h/o prostate ca with RT in the past Tamsulosin. Plan / VTE VTE Prophylaxis Ordered?: Yes MARIXA SCOTT MD Aug 05, 2020 14:50
[2020-08-05] MEDS: TAMSULOSIN 0.4 MG CAP PO SCH (21:26)
[2020-08-06] VITALS (14 sets, daily range): BP systolic 114–158; BP diastolic 53–92
[2020-08-06 05:28] LABS: BASO % 0.5 % (0.0-1.0); EOS # 0.2 10^3/uL (0.0-0.5); EOS % 3.8 % (0.0-3.0); HEMATOCRIT 23.9 % (42.0-52.0); HEMOGLOBIN 7.1 g/dl (13.5-17.5); LYMPH # 0.3 10^3/uL (1.5-5.0); LYMPH % 8.4 % (24.0-44.0); MEAN CORPUSCULAR HEMOGLOBIN 30.3 pg (27.0-33.0); MEAN CORPUSCULAR HGB CONC 29.7 g/dl (32.0-36.5); MEAN CORPUSCULAR VOLUME 102.1 fl (80.0-96.0); MONO # 0.5 10^3/uL (0.0-0.8); PLATELET COUNT, AUTOMATED 100 10^3/uL (150-450); RED BLOOD COUNT 2.34 10^6/uL (4.30-6.10); WHITE BLOOD COUNT 3.9 10^3/uL (4.0-10.0)
[2020-08-06] MEDS: LEVOTHYROXINE 25MCG TABLET (0.025MG) PO SCH (05:30)
[2020-08-06] MEDS: LEVOTHYROXINE 150MCG TABLET (0.15MG) PO SCH (05:31)
[2020-08-06 05:40] LABS: INR 1.25
[2020-08-06 06:05] LABS: CALCIUM LEVEL 8.5 MG/DL (8.8-10.2); CREATININE FOR GFR 3.74 MG/DL (0.70-1.30); GLOMERULAR FILTRATION RATE 16.6 (>35); POTASSIUM SERUM 2.9 MEQ/L (3.5-5.1)
[2020-08-06] MEDS ORDERED: POTASSIUM CHLORIDE 10 MEQ SR TABLET PO ONE ×3 (06:30→19:15)
[2020-08-06] MEDS: KCL 10MEQ/100ML SWI (KRUN) 10 MEQ in IV 1 EA IV SCH ×2 (06:43→07:51)
[2020-08-06] MEDS: allopurinoL 300 MG TAB PO SCH (07:50)
[2020-08-06] MEDS: TORSEMIDE 100 MG TAB PO SCH ×2 (07:50→16:19)
--- NOTE | 2020-08-06 11:20 | IPNPDOC ---
Subjective Date Seen The patient was seen on 08/06/20. Subjective Chief Complaint/HPI Patient does not offer any complaints today. Does not have any abdominal pain or discomfort. No SOB. Objective Physical Examination General Exam: Positive: Alert, Cooperative, No Acute Distress Eye Exam: Positive: PERRLA, Conjunctiva & lids normal, EOMI; Negative: Sclera icteric ENT Exam: Positive: Atraumatic, Mucous membr. moist/pink, Pharynx Normal Neck Exam: Positive: Supple; Negative: JVD, thyromegaly Chest Exam: Positive: Clear to auscultation, Diminished (overall diminished air entry) Heart Exam: Positive: Tachycardic, Irregular Rhythm, Normal S1, Normal S2; Negative: Bradycardic, Regular Rhythm, Gallops, Murmurs, Rubs Telemetry: Positive: Atrial fibrillation Abdomen Exam: Positive: BS Hyperactive, Soft, Tenderness, Other (distended) Extremity Exam: Positive: Edema, Other (lymphedema); Negative: Clubbing, Cyanosis Neuro Exam: Positive: Normal Speech Psych Exam: Positive: Memory Intact, Oriented x 3 Assessment /Plan Assessment 80 year old male with Morbid obesity, CKD stage 4, Chronic Afib, Ongoing GIB issues from May 2020 with Anemia, CHF was at the hospital today for EGD and colonoscopy for the work up of his GIB. The procedure was prolonged as his colon prep was poor and had to be washed with 3 to 4 liters of saline. He was found to have blood all through out the colon and a large sigmoid mass. While in the recovery area he had an episode of hypotension with Bp in 89/49, his abdomen was very distended and tight and he was in severe discomfort from abdominal pain which he described and tightness and distension. He could not rate the pain but it was located all over the abdomen. He was also tachycardic in afib. Labs showed a Hb of 7.0. It was felet that he was unstable to be discharged so was admitted to the hospital for GIB, acute blood loss anemia and Sigmoid mass. GIB with acute Blood loss anemia Due to Sigmoid mass Colonoscopy: Likely malignant partially obstructing tumor in the proximal sigmoid colon. Biopsied. Tattooed. Blood in the rectum, in the recto-sigmoid colon, in the sigmoid colon, in the descending colon and in the transverse colon. EGD:- Erythematous mucosa in the gastric body. Normal gastroesophageal junction, cardia, gastric fundus, antrum, prepyloric region of the stomach and pylorus.Normal duodenal bulb. Duodenitis. Dr Aceves will be following. continue PPI, sucralfate. will give another 2 units of PRBC MIRIAM on CKD stage 4 Creatinine is slightly worse than baseline continue torsemide BID and spironolactone Hypokalemia replaced Chronic Afib monitor on telemetry rate controlled No anticoagulation. Systolic CHF continue torsemide bid. Moderate pulmonary hypertension with chronic right heart failure continue diuresis. Thrombocytopenia Looks like Patient has underlying Cirrhosis of liver CT abd in May 2020 showed: . A somewhat irregular liver contour is seen in the left lobe is prominent in the liver question cirrhosis. Also had ascites. Cirrhosis of liver possibly from obesity and chronic hepatic congestion form chronic right heart failure has low platelets. Chronic, nonobstructive left hydronephrosis with previous failure of improvement of renal function with stenting Moderate left-sided hydronephrosis and hydroureter with no obstructive lesion seen. The left ureter is seen to be dilated well into the pelvis 2.3-4 cm are of of the ureterovesical junction. Had CYSTOSCOPY WITH LEFT RETROGRADE PYLELOGRAM, LEFT URETEROSOCPE 11/2018. This did not help with renal functions. He was having persistent pain and bleeding from the stent so it was removed on 02/12/2019 Hypothyroid synthroid Hyperuricemia/gout allopurinol Morbid obesity complicating care. Urge incontinence/ LUTs/h/o prostate ca with RT in the past Tamsulosin. Plan/VTE VTE Prophylaxis Ordered?: Yes VS, I&O, 24H, Fishbone Vital Signs/I&O Vital Signs Date Time Temp Pulse Resp B/P (MAP) Pulse Ox O2 Delivery O2 Flow Rate FiO2 08/06/20 08:00 98.0 67 20 149/65 (93) 94 Room Air I&O- Last 24 Hours up to 6 AM 08/06/20 06:00 Intake Total 800 ml Balance 800 ml Laboratory Data 24H LABS Laboratory Tests 2 08/05/20 15:11: Nucleated Red Blood Cells % (auto) 0.0, Immature Platelet Fraction 1.1, Anion Gap 11, Glomerular Filtration Rate 15.5L, Calcium Level 8.3L, Total Bilirubin 0.4, Aspartate Amino Transf (AST/SGOT) 13, Alanine Aminotransferase (ALT/SGPT) 11L, Alkaline Phosphatase 85, Total Protein 7.2, Albumin 3.0L, Albumin/Globulin Ratio 0.7 08/06/20 04:30: Nucleated Red Blood Cells % (auto) 0.0, Anion Gap 8, Glomerular Filtration Rate 16.6L, Calcium Level 8.5L, Immature Granulocyte % (Auto) 0.3, Neutrophils (%) (Auto) 75.0H, Lymphocytes (%) (Auto) 8.4L, Monocytes (%) (Auto) 12.0H, Eosinophils (%) (Auto) 3.8H, Basophils (%) (Auto) 0.5, Neutrophils # (Auto) 3.0, Lymphocytes # (Auto) 0.3L, Monocytes # (Auto) 0.5, Eosinophils # (Auto) 0.2, Basophils # (Auto) 0.0, Prothrombin Time 16.0H, Prothromb Time International Ratio 1.25, Activated Partial Thromboplast Time 33.0 CBC/BMP Laboratory Tests 08/05/20 15:11 08/06/20 04:30 MARIXA SCOTT MD Aug 06, 2020 11:19
[2020-08-06] MEDS ORDERED: SPIRONOLACTONE 25 MG TAB PO SCH (14:00)
[2020-08-06 15:20] LABS: ALBUMIN 2.8 GM/DL (3.2-5.2); CALCIUM LEVEL 8.7 MG/DL (8.8-10.2); CREATININE FOR GFR 3.93 MG/DL (0.70-1.30); GLOMERULAR FILTRATION RATE 15.7 (>35); PHOSPHORUS LEVEL 4.6 MG/DL (2.5-4.9); POTASSIUM SERUM 3.1 MEQ/L (3.5-5.1)
[2020-08-06] MEDS: TAMSULOSIN 0.4 MG CAP PO SCH (21:33)
[2020-08-07] VITALS (9 sets, daily range): BP systolic 12–122; BP diastolic 52–79
[2020-08-07 05:35] LABS: BASO % 0.3 % (0.0-1.0); EOS # 0.2 10^3/uL (0.0-0.5); HEMATOCRIT 26.1 % (42.0-52.0); LYMPH # 0.4 10^3/uL (1.5-5.0); LYMPH % 9.9 % (24.0-44.0); MEAN CORPUSCULAR HEMOGLOBIN 30.2 pg (27.0-33.0); MEAN CORPUSCULAR HGB CONC 30.7 g/dl (32.0-36.5); MEAN CORPUSCULAR VOLUME 98.5 fl (80.0-96.0); MONO # 0.5 10^3/uL (0.0-0.8); MONO % 12.3 % (0.0-5.0); NEUTROPHILS # 2.7 10^3/uL (1.5-8.5); PLATELET COUNT, AUTOMATED 106 10^3/uL (150-450); RED BLOOD COUNT 2.65 10^6/uL (4.30-6.10); WHITE BLOOD COUNT 3.8 10^3/uL (4.0-10.0)
[2020-08-07 05:48] LABS: CALCIUM LEVEL 8.3 MG/DL (8.8-10.2); CREATININE FOR GFR 3.65 MG/DL (0.70-1.30); GLOMERULAR FILTRATION RATE 17.1 (>35); POTASSIUM SERUM 3.4 MEQ/L (3.5-5.1)
[2020-08-07] MEDS ORDERED: POTASSIUM CHLORIDE 10 MEQ SR TABLET PO ONE ×2 (06:15→12:00)
[2020-08-07] MEDS: LEVOTHYROXINE 25MCG TABLET (0.025MG) PO SCH (06:16)
[2020-08-07] MEDS: LEVOTHYROXINE 150MCG TABLET (0.15MG) PO SCH (06:16)
[2020-08-07] MEDS: allopurinoL 300 MG TAB PO SCH (10:10)
--- NOTE | 2020-08-07 14:28 | IPNPDOC ---
Subjective Date Seen The patient was seen on 08/07/20. Subjective Chief Complaint/HPI Patient diagnosed with CKD stage IV was seen today at bedside. Patient has no new complaints to report. Nursing staff has no overnight events to report. Surgical team has already informed patient of risks of surgery and poor wound healing due to increased edema in the subcutaneous layer of the abdomen. Diuretics. Continue to be held due to active bleeding. Angiogram may be needed to find source of bleeding. General: Denies: ROS Unobtainable, Chills, Night Sweats, Fatigue, Malaise, Normal Appetite, Other Symptoms Constitutional: Denies: Chills, Fever, Malaise, Night Sweats, Weakness, Fatigue, Weight Loss, Lethargy, Other Gastrointestinal: Denies: Nausea, Vomiting, Abdominal Pain, Diarrhea, Constipation, Melena, Hematochezia, Other Symptoms Objective Physical Examination General Exam: Positive: Alert, Cooperative, No Acute Distress Eye Exam: Positive: Conjunctiva & lids normal, EOMI; Negative: Sclera icteric ENT Exam: Positive: Atraumatic, Mucous membr. moist/pink, Pharynx Normal Neck Exam: Positive: Supple; Negative: JVD, thyromegaly Chest Exam: Positive: Clear to auscultation, Diminished (overall diminished air entry) Heart Exam: Positive: Rate Normal, Irregular Rhythm, Normal S1, Normal S2; Negative: Bradycardic, Regular Rhythm, Gallops, Murmurs, Rubs Telemetry: Positive: Atrial fibrillation Abdomen Exam: Positive: BS Hyperactive, Soft (pitting edema +2), Tenderness, Other (distended) Extremity Exam: Positive: Edema (pitting edema +2 of bilateral legs and up through abdomen), Other (lymphedema); Negative: Clubbing, Cyanosis Neuro Exam: Positive: Normal Speech Psych Exam: Positive: Memory Intact, Oriented x 3 Assessment /Plan Assessment #GI bleed with uncontrolled bleeding and anemia: Diuretics have been held. Anticipating possible angiogram to define source of bleeding. #MIRIAM with CKD stage 4: Creatinine is slightly worse than baseline. Torsemide and spironolactone have been held. Patient has been counseled on the effects of contrast dye in CT scanning that is anticipated to follow sigmoid mass found on colonoscopy. Patient is aware. Medical team was advised to administer a bolus of normal saline prior to and after CT scanning. Patient has been informed of postsurgical complications due to edema in the abdominal subcutaneous layer, including poor wound healing. Patient's GFR is currently around 18 and we are anticipating that the GFR may decrease further after imaging studies. Medical team advised to consult IR if GFR decreases to place dialysis catheter and to administer emergency dialysis. #Chronic Afib: Continue to monitor via telemetry. Anticipating possible surgery. No anticoagulation. #Systolic CHF with pulmonary htn: Hold diuretics because of uncontrolled bleeding. #Thrombocytopenia: Possibly secondary to underlying cirrhosis #Chronic, nonobstructive left hydronephrosis: Prior stenting failure. #History of prostate ca: Continue Tamsulosin. Plan/VTE VTE Prophylaxis Ordered?: No GME ATTESTATION My faculty preceptor for this patient encounter was physically present during the encounter and was fully available. All aspects of the patient interview, examination, medical decision making process, and medical care plan development were reviewed and approved by the faculty preceptor. The faculty preceptor is aware and concurs with the plan as stated in the body of this note and will attest to such by his/her cosignature. VS, I&O, 24H, Fishbone Vital Signs/I&O Vital Signs Date Time Temp Pulse Resp B/P (MAP) Pulse Ox O2 Delivery O2 Flow Rate FiO2 08/07/20 12:00 97.7 90 20 122/68 (86) 98 Room Air I&O- Last 24 Hours up to 6 AM 08/07/20 06:00 Intake Total 2440 ml Output Total 1125 ml Balance 1315 ml Laboratory Data 24H LABS Laboratory Tests 2 08/07/20 04:56: Immature Granulocyte % (Auto) 0.5, Neutrophils (%) (Auto) 71.0H, Lymphocytes (%) (Auto) 9.9L, Monocytes (%) (Auto) 12.3H, Eosinophils (%) (Auto) 6.0H, Basophils (%) (Auto) 0.3, Neutrophils # (Auto) 2.7, Lymphocytes # (Auto) 0.4L, Monocytes # (Auto) 0.5, Eosinophils # (Auto) 0.2, Basophils # (Auto) 0.0, Nucleated Red Blood Cells % (auto) 0.0, Anion Gap 9, Glomerular Filtration Rate 17.1L, Calcium Level 8.3L CBC/BMP Laboratory Tests 08/07/20 04:56 Attending Note Attending Note MIRIAM on CKD4 CHF/ Cor Pulmonale Anemia sec to GI Bleed Large Sigmoid mass-->Adenocarcinoma Afib Morbid Obesity Hold diuretics. PRBC for Hb<8. Hold all diuretics for now. OK to do staging CT with contrast after IV fluids. Possible need to start HD was discussed with the pt. If renal function worsens then HD will be started. Christiano Mneg DO Aug 07, 2020 14:28 LEX MENG MD Aug 08, 2020 16:23
[2020-08-07] MEDS: TAMSULOSIN 0.4 MG CAP PO SCH (20:57)
[2020-08-08] VITALS (7 sets, daily range): BP systolic 104–161; BP diastolic 52–75
[2020-08-08] MEDS: LEVOTHYROXINE 25MCG TABLET (0.025MG) PO SCH (05:22)
[2020-08-08] MEDS: LEVOTHYROXINE 150MCG TABLET (0.15MG) PO SCH (05:23)
[2020-08-08 06:11] LABS: BASO % 0.5 % (0.0-1.0); EOS # 0.3 10^3/uL (0.0-0.5); EOS % 7.5 % (0.0-3.0); HEMATOCRIT 28.7 % (42.0-52.0); HEMOGLOBIN 8.7 g/dl (13.5-17.5); LYMPH # 0.4 10^3/uL (1.5-5.0); LYMPH % 8.7 % (24.0-44.0); MEAN CORPUSCULAR HEMOGLOBIN 30.2 pg (27.0-33.0); MEAN CORPUSCULAR HGB CONC 30.3 g/dl (32.0-36.5); MEAN CORPUSCULAR VOLUME 99.7 fl (80.0-96.0); MONO # 0.5 10^3/uL (0.0-0.8); MONO % 10.7 % (0.0-5.0); NEUTROPHILS # 3.2 10^3/uL (1.5-8.5); NEUTROPHILS % 71.9 % (36.0-66.0); PLATELET COUNT, AUTOMATED 108 10^3/uL (150-450); RED BLOOD COUNT 2.88 10^6/uL (4.30-6.10); WHITE BLOOD COUNT 4.4 10^3/uL (4.0-10.0)
[2020-08-08 06:33] LABS: CALCIUM LEVEL 8.8 MG/DL (8.8-10.2); CREATININE FOR GFR 3.38 MG/DL (0.70-1.30); GLOMERULAR FILTRATION RATE 18.7 (>35); POTASSIUM SERUM 3.4 MEQ/L (3.5-5.1)
[2020-08-08] MEDS ORDERED: POTASSIUM CHLORIDE 10 MEQ SR TABLET PO ONE (09:00)
[2020-08-08] MEDS ORDERED: SODIUM CHLORIDE 0.9% 1000ML IV ONE (09:00)
[2020-08-08] MEDS: allopurinoL 300 MG TAB PO SCH (10:02)
--- NOTE | 2020-08-08 12:27 | IPNPDOC ---
Subjective Date Seen The patient was seen on 08/08/20. Subjective Chief Complaint/HPI Continues to have bloody stools but less than before. He will need a CT scans of abd and chest with contrast for staging. Discussed with him that we will need to start him of HD. He is OK with this. He will probably get a permcath tomorrow as epr nephrology. Objective Physical Examination General Exam: Positive: Alert, Cooperative, No Acute Distress Eye Exam: Positive: Conjunctiva & lids normal, EOMI; Negative: Sclera icteric ENT Exam: Positive: Atraumatic, Mucous membr. moist/pink, Pharynx Normal Neck Exam: Positive: Supple; Negative: JVD, thyromegaly Chest Exam: Positive: Clear to auscultation, Diminished (overall diminished air entry) Heart Exam: Positive: Rate Normal, Irregular Rhythm, Normal S1, Normal S2; Negative: Bradycardic, Regular Rhythm, Gallops, Murmurs, Rubs Telemetry: Positive: Atrial fibrillation Abdomen Exam: Positive: BS Hyperactive, Soft (pitting edema +2), Tenderness, Other (distended) Extremity Exam: Positive: Edema (pitting edema +2 of bilateral legs and up through abdomen), Other (lymphedema); Negative: Clubbing, Cyanosis Neuro Exam: Positive: Normal Speech Psych Exam: Positive: Memory Intact, Oriented x 3 Assessment /Plan Assessment 80 year old male with Morbid obesity, CKD stage 4, Chronic Afib, Ongoing GIB issues from May 2020 with Anemia, CHF was at the hospital today for EGD and colonoscopy for the work up of his GIB. The procedure was prolonged as his colon prep was poor and had to be washed with 3 to 4 liters of saline. He was found to have blood all through out the colon and a large sigmoid mass. While in the recovery area he had an episode of hypotension with Bp in 89/49, his abdomen was very distended and tight and he was in severe discomfort from abdominal pain which he described and tightness and distension. He could not rate the pain but it was located all over the abdomen. He was also tachycardic in afib. Labs showed a Hb of 7.0. It was felet that he was unstable to be discharged so was admitted to the hospital for GIB, acute blood loss anemia and Sigmoid mass. GIB with acute Blood loss anemia Due to Sigmoid mass Colonoscopy: Likely malignant partially obstructing tumor in the proximal sigmoid colon. Biopsied. Tattooed. Blood in the rectum, in the recto-sigmoid colon, in the sigmoid colon, in the descending colon and in the transverse colon. EGD:- Erythematous mucosa in the gastric body. Normal gastroesophageal junction, cardia, gastric fundus, antrum, prepyloric region of the stomach and pylorus.Normal duodenal bulb. Duodenitis. Dr Aceves will be following. continue PPI, sucralfate. Adenocarcinoma of Sigmoid colon Nonobstructive mass, however it continues to bleed. will get CT abd and pelvis with contrast and ct chest with contrast for staging Contrast will probably push him into needing HD which i and nephrology have discussed with him and he is agreable. MIRIAM on CKD stage 4 Creatinine is at baseline diuretics held as planning on CT with contrast today will probably get a permcath tomorrow with initiation of HD. Hypokalemia replaced Chronic Afib rate controlled No anticoagulation. Systolic CHF diuretics held at present Moderate pulmonary hypertension with chronic right heart failure diuretics held at present. Thrombocytopenia Looks like Patient has underlying Cirrhosis of liver CT abd in May 2020 showed: . A somewhat irregular liver contour is seen in the left lobe is prominent in the liver question cirrhosis. Also had ascites. Cirrhosis of liver possibly from obesity and chronic hepatic congestion form chronic right heart failure has low platelets. Chronic, nonobstructive left hydronephrosis with previous failure of improvement of renal function with stenting Moderate left-sided hydronephrosis and hydroureter with no obstructive lesion seen. The left ureter is seen to be dilated well into the pelvis 2.3-4 cm are of of the ureterovesical junction. Had CYSTOSCOPY WITH LEFT RETROGRADE PYLELOGRAM, LEFT URETEROSOCPE 11/2018. This did not help with renal functions. He was having persistent pain and bleeding from the stent so it was removed on 02/12/2019 Hypothyroid synthroid Hyperuricemia/gout allopurinol Morbid obesity complicating care. Urge incontinence/ LUTs/h/o prostate ca with RT in the past Tamsulosin. Plan/VTE VTE Prophylaxis Ordered?: No VS, I&O, 24H, Fishbone Vital Signs/I&O Vital Signs Date Time Temp Pulse Resp B/P (MAP) Pulse Ox O2 Delivery O2 Flow Rate FiO2 08/08/20 08:00 97.6 65 18 104/52 (69) 96 Room Air I&O- Last 24 Hours up to 6 AM 08/08/20 06:00 Intake Total 1060 ml Output Total 0 ml Balance 1060 ml Laboratory Data 24H LABS Laboratory Tests 2 08/08/20 05:38: Immature Granulocyte % (Auto) 0.7, Neutrophils (%) (Auto) 71.9H, Lymphocytes (%) (Auto) 8.7L, Monocytes (%) (Auto) 10.7H, Eosinophils (%) (Auto) 7.5H, Basophils (%) (Auto) 0.5, Neutrophils # (Auto) 3.2, Lymphocytes # (Auto) 0.4L, Monocytes # (Auto) 0.5, Eosinophils # (Auto) 0.3, Basophils # (Auto) 0.0, Nucleated Red Blood Cells % (auto) 0.0, Anion Gap 8, Glomerular Filtration Rate 18.7L, Calcium Level 8.8 CBC/BMP Laboratory Tests 08/08/20 05:38 MARIXA SCOTT MD Aug 08, 2020 12:27
[2020-08-08] MEDS: GASTROGRAFIN SOLUTION 30ML PO SCH ×2 (13:21→13:54)
[2020-08-08] MEDS ORDERED: ISOVUE-370 76% 100ML VIAL As Ordered ONE (14:54)
--- NOTE | 2020-08-08 17:00 | REP ---
INDICATION: staged on colonic cancer. COMPARISON: None. TECHNIQUE: CT chest performed following the intravenous administration of 100 cc of Isovue 370. Sagittal and coronal reconstruction images are performed. FINDINGS: Lungs: There is mild interstitial infiltrate left upper lobe. There is a calcified granuloma peripherally in the left upper lobe. There is mild dependent patchy parenchymal opacity likely representing atelectasis, infiltrate not excluded. Mediastinum: There is a 1.2 cm right paratracheal lymph node. There are few other small subcentimeter right paratracheal lymph nodes. There is right subcarinal adenopathy 1.7 cm in short axis dimension. There also appears to be a cluster of subcentimeter subcarinal lymph nodes more superiorly.. Dulce: No adenopathy. Axilla: No adenopathy. Pleura: There are small bilateral pleural effusions. Heart: The heart is mildly enlarged. Thoracic aorta: No aneurysm or dissection. Visualized osseous structures: There are degenerative changes of the spine without compression deformity. IMPRESSION: Small bilateral pleural effusions with mild dependent atelectasis/infiltrate. Mild left upper lobe interstitial infiltrate. Mild right paratracheal and subcarinal adenopathy, may be reactive. <Electronically signed by Mateo Torres > 08/08/20 [id number]
--- NOTE | 2020-08-08 17:30 | REP ---
INDICATION: staged on colonic cancer COMPARISON: 06/03/2020. TECHNIQUE: CT Scan of the abdomen and pelvis was performed with intravenous administration of 100 cc of Isovue 370, and oral contrast. FINDINGS: Liver: The liver is cirrhotic. There is no enhancing mass. The portal vein is dilated measuring 2.5 cm in diameter consistent with portal hypertension. Gallbladder: Unremarkable. Spleen: The spleen is enlarged with a length of approximately 16.6 cm. There are multiple splenic varices. Adrenals: Normal. Pancreas: Normal. Kidneys: There is a 5 mm calcification in the lower pole the right kidney. I suspect a small 1 cm cyst in the upper pole of each kidney. Left renal pelvis and ureter are dilated, seen on prior study. No ureteral calculus is seen. Small and large bowel: Unremarkable. Free fluid: There is moderate perihepatic ascites. Mild scattered free fluid throughout the remainder of the abdomen and pelvis more so on the right paracolic gutter. There is diffuse mild mesenteric edema.. Abdominal aorta: No aneurysm or dissection. Adenopathy: None. Osseous structures: There are degenerative changes of the spine without compression deformity. Pelvis: No mass. There is asymmetric diffuse subcutaneous soft tissue edema in the left abdominal wall. Metallic densities are seen in the prostate. IMPRESSION: Cirrhotic liver with evidence of portal hypertension. Splenomegaly with multiple splenic varices. No evidence of significant adenopathy. Diffuse abdominopelvic ascites unchanged. Dilated left renal pelvis and ureter are unchanged. <Electronically signed by Mateo Torres > 08/08/20 [id number]
[2020-08-08] MEDS: TAMSULOSIN 0.4 MG CAP PO SCH (22:10)
[2020-08-09] VITALS (11 sets, daily range): BP systolic 100–146; BP diastolic 44–84
[2020-08-09 04:51] LABS: BASO % 0.2 % (0.0-1.0); EOS # 0.3 10^3/uL (0.0-0.5); EOS % 7.6 % (0.0-3.0); HEMATOCRIT 28.6 % (42.0-52.0); HEMOGLOBIN 8.3 g/dl (13.5-17.5); LYMPH # 0.4 10^3/uL (1.5-5.0); LYMPH % 8.1 % (24.0-44.0); MEAN CORPUSCULAR HEMOGLOBIN 29.4 pg (27.0-33.0); MEAN CORPUSCULAR VOLUME 101.4 fl (80.0-96.0); MONO # 0.4 10^3/uL (0.0-0.8); MONO % 9.6 % (0.0-5.0); NEUTROPHILS # 3.3 10^3/uL (1.5-8.5); NEUTROPHILS % 73.6 % (36.0-66.0); PLATELET COUNT, AUTOMATED 106 10^3/uL (150-450); RED BLOOD COUNT 2.82 10^6/uL (4.30-6.10); WHITE BLOOD COUNT 4.5 10^3/uL (4.0-10.0)
[2020-08-09 05:18] LABS: CALCIUM LEVEL 8.5 MG/DL (8.8-10.2); CREATININE FOR GFR 3.01 MG/DL (0.70-1.30); GLOMERULAR FILTRATION RATE 21.4 (>35); POTASSIUM SERUM 3.9 MEQ/L (3.5-5.1)
[2020-08-09] MEDS: LEVOTHYROXINE 150MCG TABLET (0.15MG) PO SCH (06:47)
[2020-08-09] MEDS: LEVOTHYROXINE 25MCG TABLET (0.025MG) PO SCH (06:47)
[2020-08-09] MEDS: allopurinoL 300 MG TAB PO SCH (07:47)
--- NOTE | 2020-08-09 09:14 | IPN ---
PROGRESS NOTE DATE: 08/09/2020 SUBJECTIVE: The patient underwent a CAT scan of the abdomen and pelvis that revealed persistent ascites with significant liver cirrhosis and portal hypertension with splenomegaly and splenic varices. The patient has a moderate amount of ascites and also with some small amount of bilateral pleural effusions. In general, no significant evidence of metastatic disease was appreciated. The patient did not have any bloody bowel movements overnight reportedly and hematocrit has been stable. IMPRESSION AND PLAN: Unfortunately, given the patient's significant cirrhosis, portal hypertension issues and overall comorbidities, I feel that he is a nonoperative candidate at this time and will need significant improvement of his overall medical status before I would recommend operative intervention. Options for him include a second opinion from the colorectal surgeons in [place], as well as a possible second opinion from the liver transplant surgeons in [place] or [place]. I do feel that the GI issues with the GI bleeding may have come from the cancer, but possibly also could be coming from some element of the portal hypertension issues. Thus at this point if he has some continued ongoing bleeding, angiographic evaluation may be reasonable for him. I have discussed this with the Hospitalists and they will be discussing ongoing care recommendations from Oncology, etc.
--- NOTE | 2020-08-09 10:41 | IPNPDOC ---
Subjective Date Seen The patient was seen on 08/09/20. Subjective Chief Complaint/HPI No complaints this morning. Feels OK. Reports stools are as usual. Objective Physical Examination General Exam: Positive: Alert, Cooperative, No Acute Distress Eye Exam: Positive: Conjunctiva & lids normal, EOMI; Negative: Sclera icteric ENT Exam: Positive: Atraumatic, Mucous membr. moist/pink, Pharynx Normal Neck Exam: Positive: Supple; Negative: JVD, thyromegaly Chest Exam: Positive: Clear to auscultation, Diminished (overall diminished air entry) Heart Exam: Positive: Rate Normal, Irregular Rhythm, Normal S1, Normal S2; Negative: Bradycardic, Regular Rhythm, Gallops, Murmurs, Rubs Telemetry: Positive: Atrial fibrillation Abdomen Exam: Positive: BS Hyperactive, Soft (pitting edema +2), Tenderness, Other (distended) Extremity Exam: Positive: Edema (pitting edema +2 of bilateral legs and up through abdomen), Other (lymphedema); Negative: Clubbing, Cyanosis Neuro Exam: Positive: Normal Speech Psych Exam: Positive: Memory Intact, Oriented x 3 Assessment /Plan Assessment 80 year old male with Morbid obesity, CKD stage 4, Chronic Afib, Ongoing GIB issues from May 2020 with Anemia, CHF was at the hospital today for EGD and colonoscopy for the work up of his GIB. The procedure was prolonged as his colon prep was poor and had to be washed with 3 to 4 liters of saline. He was found to have blood all through out the colon and a large sigmoid mass. While in the recovery area he had an episode of hypotension with Bp in 89/49, his abdomen was very distended and tight and he was in severe discomfort from abdominal pain which he described and tightness and distension. He could not rate the pain but it was located all over the abdomen. He was also tachycardic in afib. Labs showed a Hb of 7.0. It was felet that he was unstable to be discharged so was admitted to the hospital for GIB, acute blood loss anemia and Sigmoid mass. GIB with acute Blood loss anemia Due to Sigmoid mass Colonoscopy: Likely malignant partially obstructing tumor in the proximal sigmoid colon. Biopsied. Tattooed. Blood in the rectum, in the recto-sigmoid colon, in the sigmoid colon, in the descending colon and in the transverse colon. EGD:- Erythematous mucosa in the gastric body. Normal gastroesophageal junction, cardia, gastric fundus, antrum, prepyloric region of the stomach and pylorus. Normal duodenal bulb. Duodenitis. Dr Aceves will be following. continue PPI, sucralfate. Adenocarcinoma of Sigmoid colon Nonobstructive mass, however it continues to bleed. CT abd and pelvis with contrast and ct chest with contrast did not show any evidence of metastatic disease or any lymphadenopathy. But it did show cirrhosis of liver with portal hypertension and splenic varices. Discussed with Dr Aceves he is not a operable candidate here but may benefit from a referral to [facility] colorectal surgery/ oncosurgery to see if they would be able to offer him any surgical options. He continues to have bleeding though seems to have slowed down a bit now. As per Dr Aceves he will probably continue to bleed from the cancer there. MIRIAM on CKD stage 4 Creatinine is at baseline Received contrast studies on 08/08/20 will continue to monitor creatinine and the necessity of starting on HD Nephro following. Hypokalemia replaced Chronic Afib rate controlled No anticoagulation. Systolic CHF diuretics held at present Moderate pulmonary hypertension with chronic right heart failure diuretics held at present. Thrombocytopenia Patient has underlying Cirrhosis of liver CT abd in May 2020 showed: . A somewhat irregular liver contour is seen in the left lobe is prominent in the liver question cirrhosis. Also had ascites. Cirrhosis of liver with ascites, splenic varices. possibly from obesity and chronic hepatic congestion form chronic right heart failure has low platelets. Chronic, nonobstructive left hydronephrosis with previous failure of improvement of renal function with stenting Moderate left-sided hydronephrosis and hydroureter with no obstructive lesion seen. The left ureter is seen to be dilated well into the pelvis 2.3-4 cm are of of the ureterovesical junction. Had CYSTOSCOPY WITH LEFT RETROGRADE PYLELOGRAM, LEFT URETEROSOCPE 11/2018. This did not help with renal functions. He was having persistent pain and bleeding from the stent so it was removed on 02/12/2019 Hypothyroid synthroid Hyperuricemia/gout allopurinol Morbid obesity complicating care. Urge incontinence/ LUTs/h/o prostate ca with RT in the past Tamsulosin. Plan/VTE VTE Prophylaxis Ordered?: No VS, I&O, 24H, Fishbone Vital Signs/I&O Vital Signs Date Time Temp Pulse Resp B/P (MAP) Pulse Ox O2 Delivery O2 Flow Rate FiO2 08/09/20 08:00 97.6 98 18 130/58 (82) 94 Room Air I&O- Last 24 Hours up to 6 AM 08/09/20 06:00 Intake Total 1900 ml Output Total 150 ml Balance 1750 ml Laboratory Data 24H LABS Laboratory Tests 2 08/09/20 04:29: Immature Granulocyte % (Auto) 0.9, Neutrophils (%) (Auto) 73.6H, Lymphocytes (%) (Auto) 8.1L, Monocytes (%) (Auto) 9.6H, Eosinophils (%) (Auto) 7.6H, Basophils (%) (Auto) 0.2, Neutrophils # (Auto) 3.3, Lymphocytes # (Auto) 0.4L, Monocytes # (Auto) 0.4, Eosinophils # (Auto) 0.3, Basophils # (Auto) 0.0, Nucleated Red Blood Cells % (auto) 0.0, Anion Gap 8, Glomerular Filtration Rate 21.4L, Calcium Level 8.5L CBC/BMP Laboratory Tests 08/09/20 04:29 MARIXA SCOTT MD Aug 09, 2020 10:39
[2020-08-09] MEDS ORDERED: SLF 3 ML SYR IV PRN (12:00)
[2020-08-09] MEDS: SLF 3 ML SYR IV SCH ×2 (14:00→21:01)
[2020-08-09] MEDS: TAMSULOSIN 0.4 MG CAP PO SCH (20:55)
[2020-08-10] VITALS (14 sets, daily range): BP systolic 107–146; BP diastolic 50–88
[2020-08-10] MEDS: LEVOTHYROXINE 25MCG TABLET (0.025MG) PO SCH (05:04)
[2020-08-10] MEDS: SLF 3 ML SYR IV SCH ×3 (05:04→22:12)
[2020-08-10] MEDS: LEVOTHYROXINE 150MCG TABLET (0.15MG) PO SCH (05:04)
[2020-08-10 06:15] LABS: BASO % 0.5 % (0.0-1.0); EOS # 0.3 10^3/uL (0.0-0.5); EOS % 7.4 % (0.0-3.0); HEMATOCRIT 29.2 % (42.0-52.0); HEMOGLOBIN 8.8 g/dl (13.5-17.5); LYMPH # 0.4 10^3/uL (1.5-5.0); LYMPH % 7.9 % (24.0-44.0); MEAN CORPUSCULAR HGB CONC 30.1 g/dl (32.0-36.5); MEAN CORPUSCULAR VOLUME 99.7 fl (80.0-96.0); MONO # 0.6 10^3/uL (0.0-0.8); MONO % 12.4 % (0.0-5.0); NEUTROPHILS # 3.2 10^3/uL (1.5-8.5); NEUTROPHILS % 71.1 % (36.0-66.0); PLATELET COUNT, AUTOMATED 112 10^3/uL (150-450); RED BLOOD COUNT 2.93 10^6/uL (4.30-6.10); WHITE BLOOD COUNT 4.4 10^3/uL (4.0-10.0)
[2020-08-10 06:35] LABS: CALCIUM LEVEL 8.8 MG/DL (8.8-10.2); CREATININE FOR GFR 2.76 MG/DL (0.70-1.30); GLOMERULAR FILTRATION RATE 23.6 (>35); POTASSIUM SERUM 3.9 MEQ/L (3.5-5.1)
[2020-08-10] MEDS: allopurinoL 300 MG TAB PO SCH (07:49)
[2020-08-10] MEDS ORDERED: NITROGLYCERIN 0.4 MG SUBL TABLET As Ordered ONE (09:31)
[2020-08-10] MEDS: NITROGLYCERIN 0.4 MG SUBL TABLET SL PRN ×2 (09:38→09:45)
[2020-08-10 10:10] LABS: CK-MB VALUE MASS < 1.0 NG/ML (<3.6); CPK CREATINE PHOSPHOKINASE 42 U/L (39-308); MB/CK RELATIVE INDEX 2.38 (< OR =4); TROPONIN I 0.04 NG/ML (< 0.10)
--- NOTE | 2020-08-10 10:38 | REP ---
INDICATION: chest pain. COMPARISON: 06/01/2020. TECHNIQUE: SINGLE PORTABLE AP VIEW OF THE CHEST WAS PERFORMED. FINDINGS: Cardiomegaly is unchanged. There are underlying chronic fibrotic changes. There is multi of the costophrenic angles consistent with small bilateral pleural effusions. There is superimposed patchy bibasilar atelectasis/infiltrate. There is mild interstitial infiltrate left upper lobe. There is calcification and tortuosity of the thoracic aorta. The mediastinal silhouette is unchanged. IMPRESSION: Mild patchy bibasilar atelectasis/infiltrate with small effusions. There is mild interstitial infiltrate left upper lobe. <Electronically signed by Mateo Torres > 08/10/20 1038
--- NOTE | 2020-08-10 10:43 | REP ---
INDICATION: ABDOMINAL DISTENTION. COMPARISON: Comparison is made with CT findings from August 08, 2020.. TECHNIQUE: Three views. Supine abdomen. FINDINGS: There is air in nondistended the loop of right colon. A few loops of air-filled nondilated small bowel are seen in the left mid abdomen. There is a clip in the right upper quadrant of the abdomen. Vascular calcification is noted. Fiducial markers are seen in the prostate. IMPRESSION: The bowel gas pattern is unremarkable. <Electronically signed by Sean Domínguez > 08/10/20 0074
[2020-08-10] MEDS ORDERED: GI COCKTAIL 50ML BTL(HYOSCYAMINE/MAALOX/LIDOCAINE VISCOUS)(1:3:1) PO ONE (11:00)
--- NOTE | 2020-08-10 11:01 | CR ---
CONSULTATION DATE: 08/06/2020 REQUESTING PHYSICIAN: Marielos Davis M.D CONSULTING PHYSICIAN: Lanie Meng MD REASON FOR CONSULTATION: Management of acute renal failure and diuretic regimen. CHIEF COMPLAINT: The patient was sent from ambulatory surgery center because of severe anemia secondary to GI bleed. HISTORY OF PRESENT ILLNESS: Jeffrey Chaudhary is an 80-year-old male with past medical history of morbid obesity, chronic kidney disease stage 4, well known to nephrology service from previous hospitalizations and from outpatient nephrology clinic visits, chronic recurrent GI bleed and iron deficiency anemia since May,, congestive heart failure with cor pulmonale, He came as outpatient for workup of recurrent iron deficiency anemia and he required upper GI endoscopy and colonoscopy. It was a poor prep. His colon was full of blood. It needed to be washed with at least 3-4 liters of saline. There was a lot of blood in the colon and there was a large sigmoid mass in the proximal sigmoid colon that was biopsied and tattooed. It was partially obstructing the colon. In the recovery area, the patient was hypotensive. He had severe discomfort and abdominal pain and his lab review showed that he had a hemoglobin of 7 so instead of being sent home, the patient was admitted under the hospitalist service and nephrology service was called for further help in the management of this patient with chronic kidney disease, acute kidney injury superimposed on chronic kidney disease stage 4 and optimization of his fluid status. I saw and evaluated the patient today morning at the bedside. The patient was awake, was able to provide me with some history. The rest of the history was obtained from the chart and from the medical team. PAST MEDICAL HISTORY: 1. Chronic kidney disease stage 4. 2. History of GI bleed. 3. Iron deficiency anemia. 4. Morbid obesity. 5. Hypertension. 6. Chronic diastolic congestive heart failure. 7. Cor pulmonale, LV ejection fraction of 50%. 8. Pulmonary hypertension. 9. Cirrhosis of the liver. 10. Thrombocytopenia. 11. Chronic A fib, not anticoagulated due to GI bleed. 12. Diabetes mellitus type 2. 13. Hyperlipidemia. 14. Hypothyroid. 15. Chronic venous insufficiency. 16. Gout. 17. Kidney stones. 18. History of prostate cancer in the past. 19. Radiation cystitis. 20. History of left ureteral stricture. PAST SURGICAL HISTORY: 1. Status post radiation for prostate cancer. 2. History of left ureteral stricture dilatation. 3. Bladder cauterization in April,. 4. Cataract surgery, 2014. 5. Right hemicolectomy in 2017 with ileocolonic anastomosis. 6. Kidney stone surgery. 7. Ureteroscopy in the past. 8. History of cystoscopy with left retrograde pyelogram. 9. Left ureteroscope in Nov, 2018. 10. Stent removal in January,. 11. Umbilical hernia, incarcerated hernia repair in 2016. ALLERGIES: He is allergic to oysters. FAMILY HISTORY: No significant family history of end-stage renal disease requiring hemodialysis. SOCIAL HISTORY: He denies any smoking, illicit drug abuse or alcohol abuse. REVIEW OF SYSTEMS: Constitutional: The patient reports feeling weak and tired. He denies any fevers or chills. Eyes: He denies any blurry vision, double vision. ENT: He denies any dysphagia, odynophagia. Cardiovascular: He denies any chest pain, palpitation. He does report lower extremity edema. Respiratory: He denies any shortness of breath. GI: He reports blood in the stools on recent colonoscopy. Genitourinary: He reports any dysuria, hematuria. Musculoskeletal: He denies any muscle aches or pains. Skin: He denies any rashes or ulcers. Psych: He denies any depression or anxiety. DAMAGE APPRAISER: He denies any strokes or seizures.. All other review of systems is negative. PHYSICAL EXAMINATION: GENERAL: The patient is awake, alert, oriented x2, morbidly obese, sitting up in the bed. HEAD AND NECK: Extraocular muscles are intact. Pupils are equally round and reactive to light. Mucous membranes are moist. Neck is supple. There is no significant JVD. CARDIOVASCULAR: S1, S2, regular rate. EXTREMITIES: 1+ edema of the bilateral lower extremities. VITAL SIGNS: Temperature is 97.5 degrees Fahrenheit. Blood pressure is 114/64. Pulse if 89, respiratory rate of 18, saturating 96% on room air. RESPIRATORY: Chest is clear to auscultation bilaterally. Bilateral equal air entry. No rales or rhonchi. ABDOMEN: Soft, obese, positive bowel sounds, mildly tender in the left lower extremity. GENITOURINARY: Bladder is not palpable. MUSCULOSKELETAL: No clubbing or cyanosis, 1+ edema of the bilateral lower extremities. DAMAGE APPRAISER: No focal deficits. 5/5 strength in all extremities. LABORATORY DATA: CBC showed a WBC of 3.9, hemoglobin 7.1, platelets 100. INR is 1.25. BMP showed sodium 138, potassium 3.2, chloride 98, bicarbonate 29, BUN 139, creatinine 3.9. Calcium is 8.3. Albumin is 3. CURRENT INPATIENT MEDICATIONS: The patient's medications were all reviewed by myself. He was being given: 1. IV potassium. 2. He is allopurinol 300 mg p.o. daily. 3. Levothyroxine 150 mcg p.o. daily along with 25 mcg daily. 4. He was given potassium chloride 40 mEq p.o. x2 doses. 5. Spironolactone 25 mg p.o. daily. 6. Flomax 0.4 mg p.o. daily. 7. Torsemide 50 mg p.o. twice a day. ASSESSMENT AND PLAN: 1. Acute renal failure superimposed on chronic kidney disease stage 4. Acute renal failure is likely secondary to GI bleed, volume depletion and use of high dose diuretic. The patient is already getting PRBC transfusions. In the setting of worsening renal failure, I am going to hold off on the diuretics for now given that his repeat BMP is not showing any improvement. 2. Hypokalemia. It is secondary to use of diuretics as outpatient. He was already given IV and oral potassium. A repeat potassium level is improving. 3. Anemia secondary to GI bleed. The patient has a large colonic mass. Four units of PRBC transfusion have been ordered. He can get p.r.n. IV Lasix in between transfusions. 4. Chronic diastolic congestive heart failure with cor pulmonale. The patient has an active GI bleed. I am going to hold off on the further use of diuretics. 5. Chronic gout secondary to chronic kidney disease. Continue current dose of allopurinol 300 mg p.o. daily. 6. Hypothyroidism. Continue levothyroxine 175 mcg p.o. daily. 7. History of urethral strictures and BPH. He was evaluated by urology in the past and no intervention was recommended. Continue current dose of Flomax. Thank you for involving me in the care of this patient. I shall be happy to follow the patient along with you tomorrow morning. There is no urgent need of hemodialysis at this time. Hopefully patient should improve back to his baseline once his volume status gets better with blood transfusions. edited: 08/17/2019 1533 tkf CARIN
--- NOTE | 2020-08-10 11:07 | ECGEPIP ---
[facility] Test Date: 2020-08-10 Pat Name: REBECCA JAUREGUI Department: Room: [place] [address] Gender: Male Director Business Management: BIBIANA : 1940 Requested By: KEVIN Stephens Order Number: [id number] Reading MD: Georgette Nielsen Measurements Intervals [place] Rate: 99 P: CT: 0 QRS: -55 QRSD: 121 T: 97 QT: 389 QTc: 501 Interpretive Statements ATRIAL FIBRILLATION LEFT AXIS DEVIATION ANTEROSEPTAL MYOCARDIAL INFARCTION, OF INDETERMINATE AGE LOW VOLTAGE SIMILAR TO 06/01/20 Electronically Signed on 08-10-2020 11:06:50 EST by Georgette Nielsen
[2020-08-10] MEDS: TORSEMIDE (DEMADEX) 50 MG PER 1/2 TAB PO SCH (13:23)
[2020-08-10] MEDS: SPIRONOLACTONE 25 MG TAB PO SCH (13:23)
[2020-08-10] MEDS ORDERED: ACETAMINOPHEN 500 MG TAB PO PRN (13:45)
[2020-08-10] MEDS ORDERED: SIMETHICONE 80MG CHEW TAB PO PRN (13:45)
[2020-08-10] MEDS ORDERED: traMADol 50 MG TAB PO PRN (13:45)
--- NOTE | 2020-08-10 13:45 | IPNPDOC ---
Text Note Date of Service The patient was seen on 08/10/20. NOTE Subjective: -No copious venkat hematochezia noted, stool did have some lalita color mixed in -Had chest pain this morning that he reported to feel like gassy pain however went on for >1h and radiated to L arm, had EKG that was non ischemic and stable, troponin that was negative, no effect from SLN. Objective Vitals: see below General: Alert, Cooperative, No Acute Distress Eye: Conjunctiva & lids normal, EOMI, anicteric ENT: Mucous membr. moist/pink, Pharynx Normal Neck: Supple, no JVD, no noted thyromegaly Chest: Diminished breath sounds throughout, no venkat wheezing or crackles Heart: Irregularly irregular, Normal S1, Normal S2 Abdomen: Normoactive sounds this morning, distended, has TTP, no rebound or involuntary guarding Extremities: pitting edema +2 of bilateral legs and up through abdomen with lymphedema Neuro: Normal Speech, cranial nerves appear grossly intact, moving all extremities Psych: AOx3 Labs: Reviewed Hgb 8.8 Platelets 112 WBC 4.4 na 140 k 3.9 HCO3 29 Cr 2.76 Colonoscopy: Likely malignant partially obstructing tumor in the proximal sigmoid colon. Biopsied. Tattooed. Blood in the rectum, in the recto-sigmoid colon, in the sigmoid colon, in the descending colon and in the transverse colon. EGD:- Erythematous mucosa in the gastric body. Normal gastroesophageal junction, cardia, gastric fundus, antrum, prepyloric region of the stomach and pylorus. Normal duodenal bulb. Duodenitis. Assessment: 80 year old M with morbid obesity, CKD stage 4, Chronic Afib, Ongoing GIB issues from May 2020 with Anemia, CHF who had an outpatient EGD and colonoscopy and admitted to inpatient after being found to have a bleeding large sigmoid mass positive for adenoCA and ongoing afib with course c/b acute on chronic renal failure and persistent GIB. GIB with acute Blood loss anemia 2/2 bleeding sigmoid adenoCA mass -s/p EGD/colo with confirmed adenoCA sigmoid mass with ongoing bleeding. -Surgery onboard --> deemed poor surgical candidate 2/2 hx of cirrhosis and comorbidities despite no mets seen on CT A/P --> surgery suspects that GIB will persist and likely worsen at some point and IR's role may be c/b potential risk for infarction. -on PPI, sucralfate? -Dr. Torres discussed with Dr Aceves and concluded that he is not an operable candidate here but may benefit from a referral to [facility] colorectal surgery/ surgical oncology to see if they would be able to offer him any surgical options. -Bleeding has slowed, stable H/H over the last 24h -Consult onc to streamline referral to colorectal surg/onc at [facility] MIRIAM on CKD stage 4: Creatinine now back at recent baseline -Received contrast studies on 08/08/20 -will continue to monitor creatinine and the necessity of starting on HD -Nephro following. Hypokalemia: resolved. Repleted. Chronic Afib -rate controlled -No anticoagulation with ongoing GIB Systolic CHF -diuretics held at present i/s/o GIB with hypotension Moderate pulmonary hypertension with chronic right heart failure -diuretics held at present, see above Thrombocytopenia -Likely 2/2 underlying Cirrhosis of liver Cirrhosis of liver with ascites, splenic varices. -possibly from fatty liver disease given morbid obesity and chronic hepatic congestion form chronic right heart failure Chronic, nonobstructive left hydronephrosis with previous failure of improvement of renal function with stenting -Moderate left-sided hydronephrosis and hydroureter with no obstructive lesion seen. -The left ureter is seen to be dilated well into the pelvis 2.3-4 cm are of of the ureterovesical junction. -Had CYSTOSCOPY WITH LEFT RETROGRADE PYLELOGRAM, LEFT URETEROSOCPE 11/2018. This did not help with renal function. He was having persistent pain and bleeding from the stent so it was removed on 02/12/2019 Hypothyroidism -cont home synthroid Hyperuricemia/gout -cont home allopurinol Morbid obesity: -complicating care. Urge incontinence/ LUTs/h/o prostate ca with RT in the past -cont home Tamsulosin Chest pain? -Appears to be non-cardiac pain at this time with stable EKG, negative troponin and stable telemetry -CXR stable -AXR without acutely noted new pathology or obstructive symptoms -will start on simethicone -PRN acetaminophen and tramadol -cont PPI and sucralfate DVT ppx: TEDs Dispo: If Hgb remains stable, likely discharge home tomorrow with plan for prompt [facility] surgonc/colorectal referral Porsche REGAN, I+O VSPorsche, I+O Laboratory Tests 08/10/20 04:58 Vital Signs Date Time Temp Pulse Resp B/P (MAP) Pulse Ox O2 Delivery O2 Flow Rate FiO2 08/10/20 06:58 97.9 91 20 146/79 (101) 92 Room Air 08/09/20 23:59 95.0 I&O- Last 24 Hours up to 6 AM 08/10/20 06:00 Intake Total 2140 ml Output Total 400 ml Balance 1740 ml KEVIN UREÑA MD Aug 10, 2020 08:13
--- NOTE | 2020-08-10 18:04 | IPNPDOC ---
Subjective Date Seen The patient was seen on 08/10/20. Subjective Chief Complaint/HPI Pt was seen at bedside today. He reports ongoing bloody bowel movement today. Had episode of chest pain and pending further workup General: Denies: ROS Unobtainable, Chills, Night Sweats, Fatigue, Malaise, Normal Appetite, Other Symptoms Constitutional: Denies: Chills, Fever, Malaise, Night Sweats, Weakness, Fatigue, Weight Loss, Lethargy, Other Psych: Reports: Mood Normal Objective Physical Examination General Exam: Positive: Alert, Cooperative, No Acute Distress Eye Exam: Positive: Conjunctiva & lids normal, EOMI; Negative: Sclera icteric ENT Exam: Positive: Atraumatic, Mucous membr. moist/pink, Pharynx Normal Neck Exam: Positive: Supple; Negative: JVD, thyromegaly Chest Exam: Positive: Clear to auscultation, Diminished (overall diminished air entry) Heart Exam: Positive: Rate Normal, Irregular Rhythm, Normal S1, Normal S2; Negative: Bradycardic, Regular Rhythm, Gallops, Murmurs, Rubs Telemetry: Positive: Atrial fibrillation Abdomen Exam: Positive: BS Hyperactive, Soft (pitting edema +1), Tenderness, Other (distended) Extremity Exam: Positive: Edema (pitting edema decreased from yesterday's exam, +1 bilaterally), Other; Negative: Clubbing, Cyanosis Neuro Exam: Positive: Normal Speech Psych Exam: Positive: Memory Intact, Oriented x 3 Assessment /Plan Assessment #CKD stage 4: He has tolerated IV contrast exposure remarkably well. Renal function has improved over the past couple of days. Low dose diuretics being resumed in view of hypervolemia. #GI bleed: In the setting of malignancy / sigmoid mass. Followed by surgery. Continues H&H monitoring and prbc transfusion prn Hgb < 8. #Chronic Afib: he is rate controlled and on no anticoagulation in view of GI bleed. #Systolic CHF with pulmonary htn: Most recent CXR shows b/l pleural effusions. Diuretics were held for several days due to GI Bleed / MIRIAM. Ok to resume low dose diuretics today. Torsemide 50mg daily is ordered but continue to hold metolazone which he takes at home every other day. #Thrombocytopenia: Possibly secondary to underlying cirrhosis. Complicates his bleed. #Chronic, nonobstructive left hydronephrosis: Prior stenting failure. . Plan/VTE VTE Prophylaxis Ordered?: No GME ATTESTATION My faculty preceptor for this patient encounter was physically present during the encounter and was fully available. All aspects of the patient interview, examination, medical decision making process, and medical care plan development were reviewed and approved by the faculty preceptor. The faculty preceptor is aware and concurs with the plan as stated in the body of this note and will attest to such by his/her cosignature. ATTENDING NOTE Increasing hypervolemia on exam. Renal function stable CKD 4. Did not develop any dialysis needs s/p IV contrast exposure. Resume Torsemide 50mg daily and spironolactone 25mg daily. Monitor Renal function and continues w/ H&H surveillance VS, I&O, 24H, Fishbone Vital Signs/I&O Vital Signs Date Time Temp Pulse Resp B/P (MAP) Pulse Ox O2 Delivery O2 Flow Rate FiO2 08/10/20 14:32 20 Room Air 08/10/20 11:52 98.3 82 91 08/10/20 09:46 107/50 (69) 2.0 I&O- Last 24 Hours up to 6 AM 08/10/20 06:00 Intake Total 2140 ml Output Total 400 ml Balance 1740 ml Laboratory Data 24H LABS Laboratory Tests 2 08/10/20 04:58: Immature Granulocyte % (Auto) 0.7, Neutrophils (%) (Auto) 71.1H, Lymphocytes (%) (Auto) 7.9L, Monocytes (%) (Auto) 12.4H, Eosinophils (%) (Auto) 7.4H, Basophils (%) (Auto) 0.5, Neutrophils # (Auto) 3.2, Lymphocytes # (Auto) 0.4L, Monocytes # (Auto) 0.6, Eosinophils # (Auto) 0.3, Basophils # (Auto) 0.0, Nucleated Red Blood Cells % (auto) 0.0, Anion Gap 7L, Glomerular Filtration Rate 23.6L, Calcium Level 8.8 08/10/20 09:23: Total Creatine Kinase 42, Creatine Kinase MB < 1.0, Creatine Kinase MB Relative Index 2.38, Troponin I 0.04 CBC/BMP Laboratory Tests 08/10/20 04:58 Christiano Meng DO Aug 10, 2020 18:04 TIFFANY GUZMAN DO Aug 15, 2020 15:38
[2020-08-10] MEDS: TAMSULOSIN 0.4 MG CAP PO SCH (20:38)
[2020-08-11] VITALS: BP 148/61
[2020-08-11 04:00] VITALS: BP 127/74
[2020-08-11 05:56] LABS: BASO % 0.3 % (0.0-1.0); EOS # 0.2 10^3/uL (0.0-0.5); EOS % 3.6 % (0.0-3.0); HEMATOCRIT 30.8 % (42.0-52.0); HEMOGLOBIN 9.2 g/dl (13.5-17.5); LYMPH # 0.3 10^3/uL (1.5-5.0); LYMPH % 4.1 % (24.0-44.0); MEAN CORPUSCULAR HEMOGLOBIN 29.9 pg (27.0-33.0); MEAN CORPUSCULAR HGB CONC 29.9 g/dl (32.0-36.5); MONO # 0.8 10^3/uL (0.0-0.8); NEUTROPHILS % 79.4 % (36.0-66.0); PLATELET COUNT, AUTOMATED 101 10^3/uL (150-450); RED BLOOD COUNT 3.08 10^6/uL (4.30-6.10); WHITE BLOOD COUNT 6.3 10^3/uL (4.0-10.0)
[2020-08-11 06:19] LABS: CALCIUM LEVEL 8.7 MG/DL (8.8-10.2); CREATININE FOR GFR 2.8 MG/DL (0.70-1.30); GLOMERULAR FILTRATION RATE 23.2 (>35); POTASSIUM SERUM 4.2 MEQ/L (3.5-5.1)
[2020-08-11] MEDS: LEVOTHYROXINE 150MCG TABLET (0.15MG) PO SCH (06:40)
[2020-08-11] MEDS: LEVOTHYROXINE 25MCG TABLET (0.025MG) PO SCH (06:40)
[2020-08-11] MEDS: SLF 3 ML SYR IV SCH ×2 (06:40→17:42)
[2020-08-11 08:00] VITALS: BP 106/58
[2020-08-11] MEDS: SPIRONOLACTONE 25 MG TAB PO SCH (09:44)
[2020-08-11] MEDS: allopurinoL 300 MG TAB PO SCH (09:44)
[2020-08-11] MEDS: TORSEMIDE (DEMADEX) 50 MG PER 1/2 TAB PO SCH (09:44)
[2020-08-11 12:00] VITALS: BP 100/57
--- NOTE | 2020-08-11 14:45 | IPNPDOC ---
Text Note Date of Service The patient was seen on 08/11/20. NOTE Subjective: -No venkat hematochezia noted -No chest pain this morning Objective Vitals: see below General: Alert, Cooperative, No Acute Distress Eye: Conjunctiva & lids normal, EOMI, anicteric ENT: Mucous membr. moist/pink, Pharynx Normal Neck: Supple, no JVD, no noted thyromegaly Chest: Diminished breath sounds throughout, no venkat wheezing or crackles Heart: Irregularly irregular, Normal S1, Normal S2 Abdomen: Normoactive sounds this morning, distended, some TTP, no rebound or involuntary guarding Extremities: pitting dependent edema +2 of bilateral legs Neuro: Normal Speech, cranial nerves appear grossly intact, moving all extremities Psych: AOx3 Labs: Reviewed, stable Colonoscopy: Likely malignant partially obstructing tumor in the proximal sigmoid colon. Biopsied. Tattooed. Blood in the rectum, in the recto-sigmoid colon, in the sigmoid colon, in the descending colon and in the transverse colon. EGD:- Erythematous mucosa in the gastric body. Normal gastroesophageal junction, cardia, gastric fundus, antrum, prepyloric region of the stomach and pylorus. Normal duodenal bulb. Duodenitis. Assessment: 80 year old M with morbid obesity, CKD stage 4, Chronic Afib, Ongoing GIB issues from May 2020 with Anemia, CHF who had an outpatient EGD and colonoscopy and admitted to inpatient after being found to have a bleeding large sigmoid mass positive for adenoCA and ongoing afib with course c/b acute on chronic renal failure and persistent GIB. GIB with acute Blood loss anemia 2/2 bleeding sigmoid adenoCA mass -s/p EGD/colo with confirmed adenoCA sigmoid mass with ongoing bleeding. -Surgery onboard --> deemed poor surgical candidate 2/2 hx of cirrhosis and comorbidities despite no mets seen on CT A/P --> surgery suspects that GIB will persist and likely worsen at some point and IR's role may be c/b potential risk for infarction. -on PPI, sucralfate? -Dr. Torres discussed with Dr Aceves and concluded that he is not an operable candidate here but may benefit from a referral to [facility] colorectal surgery/ surgical oncology to see if they would be able to offer him any surgical options. -Bleeding has slowed, stable H/H over the last 24h -Spoke [facility] onc/ Dr. Robles who recommended transfer to [facility] to streamline referral to colorectal surg/onc at [facility]. Working on potential transfer MIRIAM on CKD stage 4: Creatinine now back at recent baseline -Received contrast studies on 08/08/20 -will continue to monitor creatinine and the necessity of starting on HD -Nephro following. Hypokalemia: resolved. Repleted. Chronic Afib -rate controlled -No anticoagulation with ongoing GIB Systolic CHF -diuretics held at present i/s/o GIB with hypotension Moderate pulmonary hypertension with chronic right heart failure -diuretics held at present, see above Thrombocytopenia -Likely 2/2 underlying Cirrhosis of liver Cirrhosis of liver with ascites, splenic varices. -possibly from fatty liver disease given morbid obesity and chronic hepatic congestion form chronic right heart failure Chronic, nonobstructive left hydronephrosis with previous failure of improvement of renal function with stenting -Moderate left-sided hydronephrosis and hydroureter with no obstructive lesion seen. -The left ureter is seen to be dilated well into the pelvis 2.3-4 cm are of of the ureterovesical junction. -Had CYSTOSCOPY WITH LEFT RETROGRADE PYLELOGRAM, LEFT URETEROSOCPE 11/2018. This did not help with renal function. He was having persistent pain and bleeding from the stent so it was removed on 02/12/2019 Hypothyroidism -cont home synthroid Hyperuricemia/gout -cont home allopurinol Morbid obesity: -complicating care. Urge incontinence/ LUTs/h/o prostate ca with RT in the past -cont home Tamsulosin Chest pain? -Appears to be non-cardiac pain at this time with stable EKG, negative troponin and stable telemetry -CXR stable -AXR without acutely noted new pathology or obstructive symptoms -will start on simethicone -PRN acetaminophen and tramadol -cont PPI and sucralfate DVT ppx: TEDs Dispo: working on potential transfer to [facility] medical floor with surg onc/colorectal consultation Porsche REGAN I+O Porsche REGAN I+O Laboratory Tests 08/11/20 05:27 Vital Signs Date Time Temp Pulse Resp B/P (MAP) Pulse Ox O2 Delivery O2 Flow Rate FiO2 08/11/20 08:00 98.0 78 22 106/58 (74) 91 08/11/20 04:00 Room Air 08/10/20 09:46 2.0 I&O- Last 24 Hours up to 6 AM 08/11/20 06:00 Intake Total 900 ml Output Total 0 ml Balance 900 ml KEVIN UREÑA MD Aug 11, 2020 09:53
[2020-08-11 15:34] VITALS: BP 128/59
--- NOTE | 2020-08-11 16:17 | DS.PDOC ---
Discharge Summary General Date of Admission 08/05/2020 Date of Discharge 08/11/2020 Attending Physician: KEVIN UREÑA MD Discharge Summary PROCEDURES PERFORMED DURING STAY: None ADMITTING DIAGNOSES: 1. Acute blood loss anemia 2. Newly noted bleeding sigmoid colon mass DISCHARGE DIAGNOSES: Acute blood loss anemia Newly noted bleeding sigmoid colon mass Acute on Chronic kidney disease stage 4. Morbid obesity. Hypertension. Chronic diastolic congestive heart failure. Cor pulmonale, LV ejection fraction of 50%. Pulmonary hypertension. Cirrhosis of the liver. Chronic Thrombocytopenia. Chronic A fib, not anticoagulated due to GI bleed. Diabetes mellitus type 2. Hyperlipidemia. Hypothyroid. Chronic venous insufficiency. Gout. History of prostate cancer in the past. COMPLICATIONS/CHIEF COMPLAINT: Anemia. HISTORY OF PRESENT ILLNESS: 80-year-old M with past a medical history of morbid obesity, chronic kidney disease stage 4, who presented to the outpatient GI appointment for an upper GI endoscopy and colonoscopy for chronic anemia with a history of GIB and when he arrived he was noted to have a poor prep and his colon was noted to be full of blood requiring to be washed with at least 3-4 liters of saline with a lot of blood and there was a large sigmoid mass in the proximal sigmoid colon that was biopsied and tattooed. It was partially obstructing the colon. While in the recovery area, the patient was hypotensive and had severe discomfort and abdominal pain and his lab review showed that he had a hemoglobin of 7 so instead of being sent home, the patient was admitted under medicine service and nephrology service. HOSPITAL COURSE: On admission he had a CT abd and pelvis with contrast and ct chest with contrast did not show any evidence of metastatic disease or any lymphadenopathy but confirmed known cirrhosis of liver with portal hypertension and splenic varices. General surgery was consulted and Dr Aceves did not find him to be an operable candidate here but may benefit from a referral to higher level of care colorectal surgery/ surg-onc to see if they would be able to offer him any surgical options. He had intermittent bleeding and required 6 units of blood in total. Given that his bleeding was intermittent and persistent with no clear plan to stop it, I discussed this with Mr. Chaudhary and medical oncology (Dr. Robles) about transfer for colorectal surgery evaluation. He is now being transferred to [place] [facility] and when medical stable may be transferred back to [facility] if indicated. DISCHARGE MEDICATIONS: Please see below. ALLERGIES: Please see below. PHYSICAL EXAMINATION ON DISCHARGE: VITAL SIGNS: Please see below. Vitals: see below General: Alert, Cooperative, No Acute Distress Eye: Conjunctiva & lids normal, EOMI, anicteric ENT: Mucous membr. moist/pink, Pharynx Normal Neck: Supple, no JVD, no noted thyromegaly Chest: Diminished breath sounds throughout, no venkat wheezing or crackles Heart: Irregularly irregular, Normal S1, Normal S2 Abdomen: Normoactive sounds this morning, distended, some TTP, no rebound or involuntary guarding Extremities: pitting dependent edema +2 of bilateral legs Neuro: Normal Speech, cranial nerves appear grossly intact, moving all extremities Psych: AOx3 Colonoscopy: Likely malignant partially obstructing tumor in the proximal sigmoid colon. Biopsied. Tattooed. Blood in the rectum, in the recto-sigmoid colon, in the sigmoid colon, in the descending colon and in the transverse colon. EGD:- Erythematous mucosa in the gastric body. Normal gastroesophageal junction, cardia, gastric fundus, antrum, prepyloric region of the stomach and pylorus. Normal duodenal bulb. Duodenitis. LABORATORY DATA: Please see below. IMAGING: CT chest with IV contrast: CT chest performed following the intravenous administration of 100 cc of Isovue 370. Sagittal and coronal reconstruction images are performed. FINDINGS: Lungs: There is mild interstitial infiltrate left upper lobe. There is a calcified granuloma peripherally in the left upper lobe. There is mild dependent patchy parenchymal opacity likely representing atelectasis, infiltrate not excluded. Mediastinum: There is a 1.2 cm right paratracheal lymph node. There are few other small subcentimeter right paratracheal lymph nodes. There is right subcarinal adenopathy 1.7 cm in short axis dimension. There also appears to be a cluster of subcentimeter subcarinal lymph nodes more superiorly.. Dulce: No adenopathy. Axilla: No adenopathy. Pleura: There are small bilateral pleural effusions. Heart: The heart is mildly enlarged. Thoracic aorta: No aneurysm or dissection. Visualized osseous structures: There are degenerative changes of the spine without compression deformity. IMPRESSION: Small bilateral pleural effusions with mild dependent atelectasis/infiltrate. Mild left upper lobe interstitial infiltrate. Mild right paratracheal and subcarinal adenopathy, may be reactive CT A/P with contrast: Liver: The liver is cirrhotic. There is no enhancing mass. The portal vein is dilated measuring 2.5 cm in diameter consistent with portal hypertension. Gallbladder: Unremarkable. Spleen: The spleen is enlarged with a length of approximately 16.6 cm. There are multiple splenic varices. Adrenals: Normal. Pancreas: Normal. Kidneys: There is a 5 mm calcification in the lower pole the right kidney. I suspect a small 1 cm cyst in the upper pole of each kidney. Left renal pelvis and ureter are dilated, seen on prior study. No ureteral calculus is seen. Small and large bowel: Unremarkable. Free fluid: There is moderate perihepatic ascites. Mild scattered free fluid throughout the remainder of the abdomen and pelvis more so on the right paracolic gutter. There is diffuse mild mesenteric edema.. Abdominal aorta: No aneurysm or dissection. Adenopathy: None. Osseous structures: There are degenerative changes of the spine without compression deformity. Pelvis: No mass. There is asymmetric diffuse subcutaneous soft tissue edema in the left abdominal wall. Metallic densities are seen in the prostate. IMPRESSION: Cirrhotic liver with evidence of portal hypertension. Splenomegaly with multiple splenic varices. No evidence of significant adenopathy. Diffuse abdominopelvic ascites unchanged. Dilated left renal pelvis and ureter are unchanged. CXR: Cardiomegaly is unchanged. There are underlying chronic fibrotic changes. There is multi of the costophrenic angles consistent with small bilateral pleural effusions. There is superimposed patchy bibasilar atelectasis/infiltrate. There is mild interstitial infiltrate left upper lobe. There is calcification and tortuosity of the thoracic aorta. The mediastinal silhouette is unchanged. IMPRESSION: Mild patchy bibasilar atelectasis/infiltrate with small effusions. There is mild interstitial infiltrate left upper lobe. AXR: There is air in nondistended the loop of right colon. A few loops of air-filled nondilated small bowel are seen in the left mid abdomen. There is a clip in the right upper quadrant of the abdomen. Vascular calcification is noted. Fiducial markers are seen in the prostate. IMPRESSION: The bowel gas pattern is unremarkable. PROGNOSIS: Fair ACTIVITY: As tolerated. DIET: consistent carb DISCHARGE PLAN: [facility] colorectal surgery DISPOSITION: [facility] colorectal surgery DISCHARGE INSTRUCTIONS: 1. Transfer to [facility] colorectal surgery ITEMS TO FOLLOWUP ON ON OUTPATIENT: 1. Sigmoid colon CA 2. GIB 3. Anemia 4. PCP follow up DISCHARGE CONDITION: Stable TIME SPENT ON DISCHARGE: 59 minutes. Vital Signs/I&Os Vital Signs Date Time Temp Pulse Resp B/P (MAP) Pulse Ox O2 Delivery O2 Flow Rate FiO2 08/11/20 15:34 98.4 86 20 128/59 (82) 93 Room Air 08/10/20 09:46 2.0 I&O- Last 24 Hours up to 6 AM 08/11/20 06:00 Intake Total 900 ml Output Total 0 ml Balance 900 ml Laboratory Data Labs 24H Laboratory Tests 2 08/10/20 20:05: Troponin I 0.03# 08/11/20 05:27: Immature Granulocyte % (Auto) 0.6, Neutrophils (%) (Auto) 79.4H, Lymphocytes (%) (Auto) 4.1L, Monocytes (%) (Auto) 12.0H, Eosinophils (%) (Auto) 3.6H, Basophils (%) (Auto) 0.3, Neutrophils # (Auto) 5.0, Lymphocytes # (Auto) 0.3L, Monocytes # (Auto) 0.8, Eosinophils # (Auto) 0.2, Basophils # (Auto) 0.0, Nucleated Red Blood Cells % (auto) 0.0, Anion Gap 6L, Glomerular Filtration Rate 23.2L, Calcium Level 8.7L CBC/BMP Laboratory Tests 08/11/20 05:27 Discharge Medications Scheduled Allopurinol (Zyloprim) 300 Mg Tab, 300 MG PO DAILY, (Reported) Ferrous Gluconate (Ferrous Gluconate) 324 Mg Tablet, 324 MG PO DAILY Glipizide (Glipizide ER) 2.5 Mg Tab.er.24, 2.5 MG PO DAILY, (Reported) Levothyroxine Sodium (Levothyroxine Sodium) 175 Mcg Tab, 175 MCG PO DAILY, (Reported) Metolazone (Metolazone) 2.5 Mg Tab, 2.5 MG PO 3XW, (Reported) SUNDAY, SUNDAY, AND SUNDAY Metoprolol Succinate (Metoprolol Succinate) 50 Mg Tab, 50 MG PO DAILY, (Reported) Pantoprazole Sodium (Pantoprazole Sodium) 40 Mg Tablet.dr, 40 MG PO DAILY Potassium Chloride (Potassium Chloride) 10 Meq Tab.er.prt, 1 TAB PO DAILY Spironolactone (Aldactone) 25 Mg Tablet, 25 MG PO DAILY@1400 Sucralfate (Sucralfate) 1 Gm Tablet, 1 GM PO ACHS Tamsulosin HCl (Flomax) 0.4 Mg Capsule, 0.4 MG PO QPM, (Reported) Torsemide (Torsemide) 100 Mg Tablet, 50 MG PO BID Vit A/Vit C/Vit E/Zinc/Copper (Icaps Areds Formula Dr Tablet) 1 Each Tablet.dr, 1 TAB PO DAILY, (Reported) Miscellaneous Medications Cholecalciferol (Vitamin D3) (Vitamin D3) 50 Mcg Tablet, 50 MCG PO, (Reported) Allergies Coded Allergies: Oyster (Verified Allergy, Intermediate, HIVES, 06/01/20) KEVIN UREÑA MD Aug 11, 2020 16:17
[2020-08-11] MEDS ORDERED: TORSEMIDE (DEMADEX) 50 MG PER 1/2 TAB PO SCH (17:00)
--- OUTSIDE RECORDS SUMMARY | 2020-08-13 09:51 | CCD | Continuity of Care Document ---
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 AUTM [phone] Gabriel Ng D.O. AUTM [phone] Problems Description No Active Problems Social History [...] Tablets hs Unknown Calcium 600 + D [id number] Tab lets once a day Unknown Torsemide [...] qd Unknown Vitamin D3 Ultra Potency 1.25mg (21284 Ut) Tablets take 1 tab by mouth qd Unknown Immunizations Description No Information Available Vital Signs Date Vital Result Comment 06/30/2020 1:25pm BP Systolic 108 mmHg BP Diastolic 56 mmHg Heart Rate 76 /min Height 69 inches 5'9" Weight 325.00 lb BMI (Body Mass Index) 48.0 kg/m2 [place] Body Weight 160 lb Weight 147.420 kg BSA (Body Surface Area) 2.54 m2 06/28/2020 3:25pm BP Systolic 139 mmHg BP Diastolic 69 mmHg Height 69 inches 5'9" Weight 300.00 lb Stated BMI (Body Mass Index) 44.3 kg/m2 [place] Body Weight 160 lb Weight 136.080 kg BSA (Body Surface Area) 2.45 m2 Results Test Acquired Date Facility Test Result H/L Range Note CBC With Differential 08/11/2020 [facility] Main Lab [address] [place] [address] [phone] White Blood Count 6.3 10 Normal 4.0-10.0 Red Blood Count 3.08 10 Low 4.30-6.10 Hemoglobin 9.2 g/dL Low 13.5-17.5 Hematocrit 30.8 % Low 42.0-52.0 Mean Corpuscular Volume 100.0 fl High 80.0-96.0 Mean Corpuscular Hemoglobin 29.9 pg Normal 27.0-33.0 Mean Corpuscular HGB Conc 29.9 g/dL Low 32.0-36.5 Red Cell Distribution Width 18.8 % High 11.5-14.5 Platelet Count, Automated 101 10 Low 150-450 Neutrophils % 79.4 % High 36.0-66.0 Lymph % 4.1 % Low 24.0-44.0 Randall % 12.0 % High 0.0-5.0 Eos % 3.6 % High 0.0-3.0 Baso % 0.3 % Normal 0.0-1.0 Immature Granulocyte % 0.6 % Normal 0-3.0 Nucleated Red Blood Cell % 0.0 % Normal 0-0 Neutrophils # 5.0 10 Normal 1.5-8.5 Lymph # 0.3 10 Low 1.5-5.0 Randall # 0.8 10 Normal 0.0-0.8 Eos # 0.2 10 Normal 0.0-0.5 Baso # 0.0 10 Normal 0.0-0.2 Basic Metabolic Profile 08/11/2020 [facility] Main Lab [address] [place] [address]30 [phone] Glucose, Fasting 123 mg/dL High 70-100 Blood Urea Nitrogen 90 mg/dL High 7-18 Creatinine For GFR 2.80 mg/dL High 0.70-1.30 Glomerular Filtration Rate 23.2 Low >35 1 Sodium Level 137 mEq/L Normal 136-145 Potassium Serum 4.2 mEq/L Normal 3.5-5.1 Chloride Level 102 mEq/L Normal 98-107 Carbon Dioxide Level 29 mEq/L Normal 21-32 Anion Gap 6 mEq/L Low 8-16 Calcium Level 8.7 mg/dL Low 8.8-10.2 Laboratory test finding 08/10/2020 [facility] Main Lab [address] [place] [address] [phone] Troponin I 0.03 NG/ML Significant change down < 0.10 2 Cardiac Marker Panel 08/10/2020 [facility] Main Lab [address] [place] [address] [phone] CPK Creatine Phosphokinase 42 U/L Normal 39-30 8 CK-MB Value Mass < 1.0 NG/ML Normal <3.6 MB/CK Relative Index 2.38 Normal < Or =4 3 Troponin I 0.04 NG/ML Normal < 0.10 4 CBC With Differential 08/10/2020 [facility] Main Lab [address] [place] [address] [phone] White Blood Count 4.4 10 Normal 4.0-10.0 Red Blood Count 2.93 10 Low 4.30-6.10 Hemoglobin 8.8 g/dL Low 13.5-17.5 Hematocrit 29.2 % Low 42.0-52.0 Mean Corpuscular Volume 99.7 fl High 80.0-96.0 Mean Corpuscular Hemoglobin 30.0 pg Normal 27.0-33.0 Mean Corpuscular HGB Conc 30.1 g/dL Low 32.0-36.5 Red Cell Distribution Width 19.4 % High 11.5-14.5 Platelet Count, Automated 112 10 Low 150-450 Neutrophils % 71.1 % High 36.0-66.0 Lymph % 7.9 % Low 24.0-44.0 Randall % 12.4 % High 0.0-5.0 Eos % 7.4 % High 0.0-3.0 Baso % 0.5 % Normal 0.0-1.0 Immature Granulocyte % 0.7 % Normal 0-3.0 Nucleated Red Blood Cell % 0.0 % Normal 0-0 Neutrophils # 3.2 10 Normal 1.5-8.5 Lymph # 0.4 10 Low 1.5-5.0 Randall # 0.6 10 Normal 0.0-0.8 Eos # 0.3 10 Normal 0.0-0.5 Baso # 0.0 10 Normal 0.0-0.2 Basic Metabolic Profile 08/10/2020 [facility] Main Lab [address] [place] [address] [phone] Glucose, Fasting 99 mg/dL Normal 70-100 Blood Urea Nitrogen 95 mg/dL High 7-18 Creatinine For GFR 2.76 mg/dL High 0.70-1.30 Glomerular Filtration Rate 23.6 Low >35 5 Sodium Level 140 mEq/L Normal 136-145 Potassium Serum 3.9 mEq/L Normal 3.5-5.1 Chloride Level 104 mEq/L Normal 98-107 Carbon Dioxide Level 29 mEq/L Normal 21-32 Anion Gap 7 mEq/L Low 8-16 Calcium Level 8.8 mg/dL Normal 8.8-10.2 Laboratory test finding 08/09/2020 [facility] Main Lab [address] [place] [address] [phone] Packed Cells TRANSFUSED PRODU <SEE NOTE> 6 Type & Screen -Incl Blood Type,Ezra,AB SC 08/09/2020 [facility] Main Lab [address] [place] [address] [phone] Blood Type O POSITIVE Normal AB Screen (Indirect James)Vis POSITIVE Normal Laboratory test finding 08/09/2020 [facility] Main Lab [address] [place] [address] [phone] Antibody Identification Anti-I Normal 7 CBC With Differential 08/09/2020 [facility] Main Lab [address] [place] [address] [phone] White Blood Count 4.5 10 Normal 4.0-10.0 Red Blood Count 2.82 10 Low 4.30-6.10 Hemoglobin 8.3 g/dL Low 13.5-17.5 Hematocrit 28.6 % Low 42.0-52.0 Mean Corpuscular Volume 101.4 fl High 80.0-96.0 Mean Corpuscular Hemoglobin 29.4 pg Normal 27.0-33.0 Mean Corpuscular HGB Conc 29.0 g/dL Low 32.0-36.5 Red Cell Distribution Width 19.8 % High 11.5-14.5 Platelet Count, Automated 106 10 Low 150-450 Neutrophils % 73.6 % High 36.0-66.0 Lymph % 8.1 % Low 24.0-44.0 Randall % 9.6 % High 0.0-5.0 Eos % 7.6 % High 0.0-3.0 Baso % 0.2 % Normal 0.0-1.0 Immature Granulocyte % 0.9 % Normal 0-3.0 Nucleated Red Blood Cell % 0.0 % Normal 0-0 Neutrophils # 3.3 10 Normal 1.5-8.5 Lymph # 0.4 10 Low 1.5-5.0 Randall # 0.4 10 Normal 0.0-0.8 Eos # 0.3 10 Normal 0.0-0.5 Baso # 0.0 10 Normal 0.0-0.2 Basic Metabolic Profile 08/09/2020 [facility] Lab [address] [place] [address] [phone] Glucose, Fasting 112 mg/dL High 70-100 Blood Urea Nitrogen 108 mg/dL High 7-18 Creatinine For GFR 3.01 mg/dL High 0.70-1.30 Glomerular Filtration Rate 21.4 Low >35 8 Sodium Level 141 mEq/L Normal 136-145 Potassium Serum 3.9 mEq/L Normal 3.5-5.1 Chloride Level 105 mEq/L Normal 98-107 Carbon Dioxide Level 28 mEq/L Normal 21-32 Anion Gap 8 mEq/L Normal 8-16 Calcium Level 8.5 mg/dL Low 8.8-10.2 CBC With Differential 08/08/2020 [facility] Main Lab [address] [place] [address] [phone] White Blood Count 4.4 10 Normal 4.0-10.0 Red Blood Count 2.88 10 Low 4.30-6.10 Hemoglobin 8.7 g/dL Low 13.5-17.5 Hematocrit 28.7 % Low 42.0-52.0 Mean Corpuscular Volume 99.7 fl High 80.0-96.0 Mean Corpuscular Hemoglobin 30.2 pg Normal 27.0-33.0 Mean Corpuscular HGB Conc 30.3 g/dL Low 32.0-36.5 Red Cell Distribution Width 19.9 % High 11.5-14.5 Platelet Count, Automated 108 10 Low 150-450 Neutrophils % 71.9 % High 36.0-66.0 Lymph % 8.7 % Low 24.0-44.0 Randall % 10.7 % High 0.0-5.0 Eos % 7.5 % High 0.0-3.0 Baso % 0.5 % Normal 0.0-1.0 Immature Granulocyte % 0.7 % Normal 0-3.0 Nucleated Red Blood Cell % 0.0 % Normal 0-0 Neutrophils # 3.2 10 Normal 1.5-8.5 Lymph # 0.4 10 Low 1.5-5.0 Randall # 0.5 10 Normal 0.0-0.8 Eos # 0.3 10 Normal 0.0-0.5 Baso # 0.0 10 Normal 0.0-0.2 Basic Metabolic Profile 08/08/2020 [facility] Lab [address] [place] [address] [phone] Glucose, Fasting 108 mg/dL High 70-100 Blood Urea Nitrogen 119 mg/dL High 7-18 Creatinine For GFR 3.38 mg/dL High 0.70-1.30 Glomerular Filtration Rate 18.7 Low >35 9 Sodium Level 138 mEq/L Normal 136-145 Potassium Serum 3.4 mEq/L Low 3.5-5.1 Chloride Level 101 mEq/L Normal 98-107 Carbon Dioxide Level 29 mEq/L Normal 21-32 Anion Gap 8 mEq/L Normal 8-16 Calcium Level 8.8 mg/dL Normal 8.8-10.2 Basic Metabolic Profile 08/07/2020 [facility] Lab [address] [place], [place] [phone] Glucose, Fasting 112 mg/dL High 70-100 Blood Urea Nitrogen 130 mg/dL High 7-18 Creatinine For GFR 3.65 mg/dL High 0.70-1.30 Glomerular Filtration Rate 17.1 Low >35 1 0 Sodium Level 137 mEq/L Normal 136-145 Potassium Serum 3.4 mEq/L Low 3.5-5.1 Chloride Level 99 mEq/L Normal 98-107 Carbon Dioxide Level 29 mEq/L Normal 21-32 Anion Gap 9 mEq/L Normal 8-16 Calcium Level 8.3 mg/dL Low 8.8-10.2 CBC With Differential 08/07/2020 [facility] Main Lab [address] [place] [address] [phone] White Blood Count 3.8 10 Low 4.0-10.0 Red Blood Count 2.65 10 Low 4.30-6.10 Hemoglobin 8.0 g/dL Low 13.5-17.5 Hematocrit 26.1 % Low 42.0-52.0 Mean Corpuscular Volume 98.5 fl High 80.0-96.0 Mean Corpuscular Hemoglobin 30.2 pg Normal 27.0-33.0 Mean Corpuscular HGB Conc 30.7 g/dL Low 32.0-36.5 Red Cell Distribution Width 19.9 % High 11.5-14.5 Platelet Count, Automated 106 10 Low 150-450 Neutrophils % 71.0 % High 36.0-66.0 Lymph % 9.9 % Low 24.0-44.0 Randall % 12.3 % High 0.0-5.0 Eos % 6.0 % High 0.0-3.0 Baso % 0.3 % Normal 0.0-1.0 Immature Granulocyte % 0.5 % Normal 0-3.0 Nucleated Red Blood Cell % 0.0 % Normal 0-0 Neutrophils # 2.7 10 Normal 1.5-8.5 Lymph # 0.4 10 Low 1.5-5.0 Randall # 0.5 10 Normal 0.0-0.8 Eos # 0.2 10 Normal 0.0-0.5 Baso # 0.0 10 Normal 0.0-0.2 Laboratory test finding 08/07/2020 [facility] [address] [place] [address] [phone] Antibody Identification Anti-I Normal 11 Type & Screen -Incl Blood Type,Ezra,AB SC 08/07/2020 [facility] Main Lab [address] [place] [address] [phone] Blood Type O POSITIVE Normal AB Screen (Indirect James)Vis POSITIVE Normal Laboratory test finding 08/07/2020 [facility] [address] [place] [address] [phone] Packed Cells TRANSFUSED PRODU <SEE NOTE> 12 Renal Profile 08/06/2020 [facility] Main Lab [address] [place] [address] [phone] Glucose, Fasting 157 mg/dL High 70-100 Blood Urea Nitrogen 135 mg/dL High 7-18 Creatinine For GFR 3.93 mg/dL High 0.70-1.30 Glomerular Filtration Rate 15.7 Low >35 1 3 Sodium Level 136 mEq/L Normal 136-145 Potassium Serum 3.1 mEq/L Low 3.5-5.1 Chloride Level 96 mEq/L Low 98-107 Carbon Dioxide Level 33 mEq/L High 21-32 Anion Gap 7 mEq/L Low 8-16 Calcium Level 8.7 mg/dL Low 8.8-10.2 Phosphorus Level 4.6 mg/dL Normal 2.5-4.9 Albumin 2.8 GM/DL Low 3.2-5.2 CBC With Differential 08/06/2020 [facility] Main Lab [address] [place] [address] [phone] White Blood Count 3.9 10 Low 4.0-10.0 Red Blood Count 2.34 10 Low 4.30-6.10 Hemoglobin 7.1 g/dL Low 13.5-17.5 Hematocrit 23.9 % Low 42.0-52.0 Mean Corpuscular Volume 102.1 fl High 80.0-96.0 Mean Corpuscular Hemoglobin 30.3 pg Normal 27.0-33.0 Mean Corpuscular HGB Conc 29.7 g/dL Low 32.0-36.5 Red Cell Distribution Width 19.1 % High 11.5-14.5 Platelet Count, Automated 100 10 Low 150-450 Neutrophils % 75.0 % High 36.0-66.0 Lymph % 8.4 % Low 24.0-44.0 Randall % 12.0 % High 0.0-5.0 Eos % 3.8 % High 0.0-3.0 Baso % 0.5 % Normal 0.0-1.0 Immature Granulocyte % 0.3 % Normal 0-3.0 Nucleated Red Blood Cell % 0.0 % Normal 0-0 Neutrophils # 3.0 10 Normal 1.5-8.5 Lymph # 0.3 10 Low 1.5-5.0 Randall # 0.5 10 Normal 0.0-0.8 Eos # 0.2 10 Normal 0.0-0.5 Baso # 0.0 10 Normal 0.0-0.2 PT & Aptt 08/06/2020 [facility] Main Lab [address] [place] [address] [phone] Prothrombin Time 16.0 seconds High 12.5-14.3 Inr 1.25 Normal 14 Partial Thromboplastin Time 33.0 seconds Normal 24.2-38.5 Basic Metabolic Profile 08/06/2020 [facility] Lab [address] [place] [address] [phone] Glucose, Fasting 109 mg/dL High 70-100 Blood Urea Nitrogen 143 mg/dL High 7-18 Creatinine For GFR 3.74 mg/dL High 0.70-1.30 Glomerular Filtration Rate 16.6 Low >35 1 5 Sodium Level 137 mEq/L Normal 136-145 Potassium Serum 2.9 mEq/L Critical low 3.5-5.1 Chloride Level 98 mEq/L Normal 98-107 Carbon Dioxide Level 31 mEq/L Normal 21-32 Anion Gap 8 mEq/L Normal 8-16 Calcium Level 8.5 mg/dL Low 8.8-10.2 Complete Blood Count 08/05/2020 [facility] Main Lab [address] [place] [address] [phone] [phone] White Blood Count 3.7 10 Low 4.0-10.0 Red Blood Count 2.24 10 Low 4.30-6.10 Hemoglobin 7.0 g/dL Low 13.5-17.5 Hematocrit 24.6 % Low 42.0-52.0 Mean Corpuscular Volume 109.8 fl High 80.0-96.0 Mean Corpuscular Hemoglobin 31.3 pg Normal 27.0-33.0 Mean Corpuscular HGB Conc 28.5 g/dL Low 32.0-36.5 Red Cell Distribution Width 18.7 % High 11.5-14.5 Platelet Count, Automated 94 10 Low 150-450 Nucleated Red Blood Cell % 0.0 % Normal 0-0 Laboratory test finding 08/05/2020 [facility] Lab [address] [place] [address] [phone] Immature Platelet Fraction 1.1 % Normal 0.0-1 0.91 16 Comprehensive Metabolic Profil 08/05/2020 [facility] Main Lab [address] [place] [address] 35243 [phone] Glucose, Fasting 123 mg/dL High 70-100 Blood Urea Nitrogen 139 mg/dL High 7-18 Creatinine For GFR 3.97 mg/dL High 0.70-1.30 Glomerular Filtration Rate 15.5 Low >35 1 7 Sodium Level 138 mEq/L Normal 136-145 Potassium Serum 3.2 mEq/L Low 3.5-5.1 Chloride Level 98 mEq/L Normal 98-107 Carbon Dioxide Level 29 mEq/L Normal 21-32 Anion Gap 11 mEq/L Normal 8-16 Calcium Level 8.3 mg/dL Low 8.8-10.2 Ast/Sgot 13 U/L Normal 7-37 Alt/SGPT 11 U/L Low 12-78 Alkaline Phosphatase 85 U/L Normal 45-117 Bilirubin,Total 0.4 mg/dL Normal 0.2-1.0 Total Protein 7.2 GM/DL Normal 6.4-8.2 Albumin 3.0 GM/DL Low 3.2-5.2 Albumin/Globulin Ratio 0.7 Normal Type & Screen -Incl Blood Type,Ezra,AB SC 08/05/2020 [facility] Main Lab [address] [place] [address] [phone] Blood Type O POSITIVE Normal AB Screen (Indirect James)Vis POSITIVE Normal Laboratory test finding 08/05/2020 [facility] Lab [address] [place] [address] [phone] Antibody Identification Anti-I Normal 18 Laboratory test finding 08/05/2020 [facility] Main Lab [address] [place] [address] [phone] Packed Cells TRANSFUSED PRODU <SEE NOTE> 19 Laboratory test finding 08/05/2020 [facility] Lab [address] [place] [address] [phone] Pathology Request For Service (SEE NOTE) 20 1 Units are mL/min/1.73 m2 Chronic Kidney Disease Staging per NKF: Stage I & II GFR >=60 Normal to Mildly Decreased Stage III GFR 30-59 Moderately Decreased Stage IV GFR 15-29 Severely Decreased Stage V GFR <15 Very Little GFR Left ESRD GFR <15 on VERIFICATION SPECIALIST 2 Troponin I Reference Interva l for So Protect Meta LOCI: 99th Percentile= 0.00-0.045 ng/ml Risk Stratification: <= 0.10 ng/ml Decreased Risk for Adverse Clinical Events. 0.10-1.50 ng/ml Increased Risk for Adv erse Clinical Events. Evaluation of additional criterion and/or repeat testing in 2-6 hours is suggested to rule out myocardial damage. >= 1.50 ng/ml Indicative of Myocardial Injury. 3 DIAGNOSIS CRITERIA MMB ng/ml Relative Index (RI) NON-AMI < or = 5 N/A SORIANO ZONE > 5 < or = 4 AMI > 5 > 4 4 Troponin I Reference Interva l for So Protect Meta LOCI: 99th Percentile= 0.00-0.045 ng/ml Risk Stratification: <= 0.10 ng/ml Decreased Risk for Adverse Clinical Events. 0.10-1.50 ng/ml Increased Risk for Adv erse Clinical Events. Evaluation of additional criterion and/or repeat testing in 2-6 hours is suggested to rule out myocardial damage. >= 1.50 ng/ml Indicative of Myocardial Injury. 5 Units are mL/min/1.73 m2 Chronic Kidney Disease Staging per NKF: Stage I & II GFR >=60 Normal to Mildly Decreased Stage III GFR 30-59 Moderately Decreased Stage IV GFR 15-29 Severely Decreased Stage V GFR <15 Very Little GFR Left ESRD GFR <15 on VERIFICATION SPECIALIST 6 TRANSFUSED PRODUCT: PACKED C ELLS COUNT: 1 7 Anti-Jka 8 Units are mL/min/1.73 m2 Chronic Kidney Disease Staging per NKF: Stage I & II GFR >=60 Normal to Mildly Decreased Stage III GFR 30-59 Moderately Decreased Stage IV GFR 15-29 Severely Decreased Stage V GFR <15 Very Little GFR Left ESRD GFR <15 on VERIFICATION SPECIALIST 9 Units are mL/min/1.73 m2 Chronic Kidney Disease Staging per NKF: Stage I & II GFR >=60 Normal to Mildly Decreased Stage III GFR 30-59 Moderately Decreased Stage IV GFR 15-29 Severely Decreased Stage V GFR <15 Very Little GFR Left ESRD GFR <15 on VERIFICATION SPECIALIST 10 Units are mL/min/1.73 m2 Chronic Kidney Disease Staging per NKF: Stage I & II GFR >=60 Normal to Mildly Decreased Stage III GFR 30-59 Moderately Decreased Stage IV GFR 15-29 Severely Decreased Stage V GFR <15 Very Little GFR Left ESRD GFR <15 on VERIFICATION SPECIALIST 11 Anti-Jka 12 TRANSFUSED PRODUCT: PACKED C ELLS COUNT: 1 13 Units are mL/min/1.73 m2 Chronic Kidney Disease Staging per NKF: Stage I & II GFR >=60 Normal to Mildly Decreased Stage III GFR 30-59 Moderately Decreased Stage IV GFR 15-29 Severely Decreased Stage V GFR <15 Very Little GFR Left ESRD GFR <15 on VERIFICATION SPECIALIST 14 THERAPUTIC HUMAN INR VALUES INDICATIONS NORMAL RANGES PROPHYLAXIS/TREATMENT OF: VENOUS THROMBOSIS 2.0-3.0 PULMONARY EMBOLISM 2.0-3.0 PREVENTION OF SYSTEMIC EMBOLISM FROM: TISSUE HEART VALVES 2.0-3.0 ACUTE MYOCARDIAL INFARCTION 2.0-3.0 VALVULAR HEART DISEASE 2.0-3.0 ATRIAL FIBRILLATION 2.0-3.0 MECHANICAL VALVES(HIGH RISK) 2.5-3.5 RECURRENT MYOCARDIAL INFARCTION 2.5-3.5 15 Units are mL/min/1.73 m2 Chronic Kidney Disease Staging per NKF: Stage I & II GFR >=60 Normal to Mildly Decreased Stage III GFR 30-59 Moderately Decreased Stage IV GFR 15-29 Severely Decreased Stage V GFR <15 Very Little GFR Left ESRD GFR <15 on VERIFICATION SPECIALIST 16 LAB DRAW 17 Units are mL/min/1.73 m2 Chronic Kidney Disease Staging per NKF: Stage I & II GFR >=60 Normal to Mildly Decreased Stage III GFR 30-59 Moderately Decreased Stage IV GFR 15-29 Severely Decreased Stage V GFR <15 Very Little GFR Left ESRD GFR <15 on VERIFICATION SPECIALIST 18 Anti-Jka 19 TRANSFUSED PRODUCT: PACKED C ELLS COUNT: 2 20 FINAL DIAGNOSIS Colon, 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 -4/TR 08/06/2020 - 1224 CLINICAL DIAGNOSIS Anemia 08/05/2020 - 1509 GROSS DIAGNOSIS Received in formalin labeled "biopsy at 65 cm" consists of two fragments of leon tissue measuring 0.5 x 0.3 x 0.2 cm in aggregate. All in one. -SV 08/05/2020 - 1509 Signed RICARDA CHRISTINA MD 08/06/2020 1238 Procedures Date Code Description Status 08/05/2020 40496 Colonoscopy,W/Directed Submucosa l Injections, Any Substance Completed 08/05/2020 72605 Colonoscopy Flexible Proximal To Splenic Flexure W/Biopsy Single/ Completed 08/05/2020 26873 Endoscopy Upper GI Complex Diagn ostic Completed Medical Devices Description No Information Available Encounters Type Date Location Provider Dx Diagnosis Office Visit 06/30/2020 1:00p [facility] Gerhard bowers JR, MD D50.9 Iron deficiency anemia, unspecified Office Visit 06/28/2020 3:15p [facility] Lina maxwell MD N18.4 Chronic kidney disease, stage 4 (severe) Assessments Date Code Description Provider 08/05/2020 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 Gerhard Aceves JR, MD 08/05/2020 K31.89 Other diseases of stomach and du odenum Gerhard Aceves JR, MD 08/05/2020 K29.80 Duodenitis without bleeding Gerhard Aceves JR, MD 08/05/2020 D50.9 Iron deficiency anemia, unspecif ied Gerhard Aceves JR, MD 06/30/2020 D50.9 Iron deficiency anemia, unspecif ied Gerhard Aceves JR, MD 06/28/2020 N18.4 Chronic kidney disease, stage 4 (severe) Lina Jade MD Plan of Treatment 06/30/2020 - Gerhard Aceves JR, MD* D50.9 Iron deficiency anemia, unspecified* Comments:* Patient has iron deficiency anemia and is of undetermined etiology he's had some) blood per rectum as well probably has some hemorrhoids but in general this doesn't explain his anemia are at least the total amount of that he may have a multifactorial etiology for this may have some upper GI area abnormality as well as renal insufficiency as another abnormality and then again some hemorrhoidal bleeding and thus with all the combination of those it has been hard to reestablish his hematocrit any case a do feel an upper and lower endoscopy is warranted we'll plan on prepping him but we'll need to do a MiraLAX prep and we will need to see nephrology to optimize him for intervention given that we will be dehydrating him to some extent with this bowel prep but we've encouraged significant fluid resuscitation and he may need to have 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 In any case patient understands risks as well as benefits associated with the upper and lower endoscopy would like to proceed with this as scheduled. Functional Status Description No Information Available Mental Status Description No Information Available Referrals Refer to Reason for Referral Status Appt Date Lina Jade MD EVAL AVF Closed 06/28/2020 [address] [facility], [address] [place] [address] [phone]
--- OUTSIDE RECORDS SUMMARY | 2020-08-13 09:52 | CCD | Continuity of Care Document ---
Author Organization Unknown Address Unknown Phone Unavailable Care Team Providers Care Senior Principal Architect Name Role Phone Lanie Meng M.D. AUTM Gabriel Ng D.O. AUTM [phone] Problems Description No Active Problems Social History [...] Tablets hs Unknown Calcium 600 + D [id number] Tab lets once a day Unknown Torsemide [...] qd Unknown Vitamin D3 Ultra Potency 1.25mg (63595 Ut) Tablets take 1 tab by mouth qd Unknown Immunizations Description No Information Available Vital Signs Date Vital Result Comment 06/30/2020 1:25pm BP Systolic 108 mmHg BP Diastolic 56 mmHg Heart Rate 76 /min Height 69 inches 5'9" Weight 325.00 lb BMI (Body Mass Index) 48.0 kg/m2 [place] Body Weight 160 lb Weight 147.420 kg BSA (Body Surface Area) 2.54 m2 06/28/2020 3:25pm BP Systolic 139 mmHg BP Diastolic 69 mmHg Height 69 inches 5'9" Weight 300.00 lb Stated BMI (Body Mass Index) 44.3 kg/m2 [place] Body Weight 160 lb Weight 136.080 kg BSA (Body Surface Area) 2.45 m2 Results Test Acquired Date Facility Test Result H/L Range Note CBC With Differential 08/11/2020 [facility] Main [facility] [address] [place] [phone] White Blood Count 6.3 10 Normal 4.0-10.0 [...] 36.0-66.0 Lymph % 4.1 % Low 24.0-44.0 Bradford % 12.0 % High 0.0-5.0 Eos % 3.6 % High 0.0-3.0 Baso % 0.3 % Normal 0.0-1.0 Immature Granulocyte % 0.6 % Normal 0-3.0 Nucleated Red Blood Cell % 0.0 % Normal 0-0 Neutrophils # 5.0 10 Normal 1.5-8.5 Lymph # 0.3 10 Low 1.5-5.0 Bradford # 0.8 10 Normal 0.0-0.8 Eos # 0.2 10 Normal 0.0-0.5 Baso # 0.0 10 Normal 0.0-0.2 Basic Metabolic Profile 08/11/2020 [facility] [address] [place] [address] [phone] Glucose, Fasting 123 mg/dL High 70-100 Blood [...] mg/dL Low 8.8-10.2 Laboratory test finding 08/10/2020 [facility] [address] [place] [address] [phone] Troponin I 0.03 NG/ML Significant change down < 0.10 2 Cardiac Marker Panel 08/10/2020 [facility] enter Main Lab [address] [place] [address] [phone] CPK Creatine Phosphokinase 42 U/L Normal 39-30 8 CK-MB Value Mass < 1.0 NG/ML Normal <3.6 MB/CK Relative Index 2.38 Normal < Or =4 3 Troponin I 0.04 NG/ML Normal < 0.10 4 CBC With Differential 08/10/2020 [facility] Main [facility] [address] [place] [address] [phone] [phone] White Blood Count 4.4 10 Normal 4.0-10.0 [...] 36.0-66.0 Lymph % 7.9 % Low 24.0-44.0 Bradford % 12.4 % High 0.0-5.0 Eos % 7.4 % High 0.0-3.0 Baso % 0.5 % Normal 0.0-1.0 Immature Granulocyte % 0.7 % Normal 0-3.0 Nucleated Red Blood Cell % 0.0 % Normal 0-0 Neutrophils # 3.2 10 Normal 1.5-8.5 Lymph # 0.4 10 Low 1.5-5.0 Bradford # 0.6 10 Normal 0.0-0.8 Eos # 0.3 10 Normal 0.0-0.5 Baso # 0.0 10 Normal 0.0-0.2 Basic Metabolic Profile 08/10/2020 [facility] [address] [place] [address] [phone] Glucose, Fasting 99 mg/dL Normal 70-100 Blood [...] mg/dL Normal 8.8-10.2 Laboratory test finding 08/09/2020 [facility] [address] [place] [address] [phone] Packed Cells TRANSFUSED PRODU <SEE NOTE> 6 Type & Screen -Incl Blood Type,Ezra,AB SC 08/09/2020 [facility] [address] [place] [address] [phone] Blood Type O POSITIVE Normal AB Screen (Indirect James)Vis POSITIVE Normal Laboratory test finding 08/09/2020 [facility] [address] [place] [address] [phone] Antibody Identification Anti-I Normal 7 CBC With Differential 08/09/2020 [facility] [address] [place] [address] [phone] White Blood Count 4.5 10 Normal 4.0-10.0 [...] 36.0-66.0 Lymph % 8.1 % Low 24.0-44.0 Bradford % 9.6 % High 0.0-5.0 Eos % 7.6 % High 0.0-3.0 Baso % 0.2 % Normal 0.0-1.0 Immature Granulocyte % 0.9 % Normal 0-3.0 Nucleated Red Blood Cell % 0.0 % Normal 0-0 Neutrophils # 3.3 10 Normal 1.5-8.5 Lymph # 0.4 10 Low 1.5-5.0 Bradford # 0.4 10 Normal 0.0-0.8 Eos # 0.3 10 Normal 0.0-0.5 Baso # 0.0 10 Normal 0.0-0.2 Basic Metabolic Profile 08/09/2020 [facility] [address] [place] [address] [phone] Glucose, Fasting 112 mg/dL High 70-100 Blood [...] mg/dL Low 8.8-10.2 CBC With Differential 08/08/2020 [facility] [address] [place] [address] [phone] White Blood Count 4.4 10 Normal 4.0-10.0 [...] 36.0-66.0 Lymph % 8.7 % Low 24.0-44.0 Bradford % 10.7 % High 0.0-5.0 Eos % 7.5 % High 0.0-3.0 Baso % 0.5 % Normal 0.0-1.0 Immature Granulocyte % 0.7 % Normal 0-3.0 Nucleated Red Blood Cell % 0.0 % Normal 0-0 Neutrophils # 3.2 10 Normal 1.5-8.5 Lymph # 0.4 10 Low 1.5-5.0 Bradford # 0.5 10 Normal 0.0-0.8 Eos # 0.3 10 Normal 0.0-0.5 Baso # 0.0 10 Normal 0.0-0.2 Basic Metabolic Profile 08/08/2020 [facility] [address] [place] [address] [phone] Glucose, Fasting 108 mg/dL High 70-100 Blood [...] mg/dL Normal 8.8-10.2 Basic Metabolic Profile 08/07/2020 [facility] [address] [place], [place] [phone] Glucose, Fasting 112 mg/dL High 70-100 Blood [...] mg/dL Low 8.8-10.2 CBC With Differential 08/07/2020 [facility] Lab [address] [place] [address] [phone] White Blood Count 3.8 10 Low 4.0-10.0 [...] 36.0-66.0 Lymph % 9.9 % Low 24.0-44.0 Bradford % 12.3 % High 0.0-5.0 Eos % 6.0 % High 0.0-3.0 Baso % 0.3 % Normal 0.0-1.0 Immature Granulocyte % 0.5 % Normal 0-3.0 Nucleated Red Blood Cell % 0.0 % Normal 0-0 Neutrophils # 2.7 10 Normal 1.5-8.5 Lymph # 0.4 10 Low 1.5-5.0 Bradford # 0.5 10 Normal 0.0-0.8 Eos # 0.2 10 Normal 0.0-0.5 Baso # 0.0 10 Normal 0.0-0.2 Laboratory test finding 08/07/2020 [facility] [address] [place] [address] [phone] Antibody Identification Anti-I Normal 11 Type & Screen -Incl Blood Type,Ezra,AB SC 08/07/2020 [facility] [address] [place] [address] [phone] Blood Type O POSITIVE Normal AB Screen (Indirect James)Vis POSITIVE Normal Laboratory test finding 08/07/2020 [facility] [address] [place] [address] [phone] Packed Cells TRANSFUSED PRODU <SEE NOTE> 12 Renal Profile 08/06/2020 [facility] Main Lab [address] [place] [address] [phone] Glucose, Fasting 157 mg/dL High 70-100 Blood [...] GM/DL Low 3.2-5.2 CBC With Differential 08/06/2020 [facility] [address] [place] [address] [phone] White Blood Count 3.9 10 Low 4.0-10.0 [...] 36.0-66.0 Lymph % 8.4 % Low 24.0-44.0 Bradford % 12.0 % High 0.0-5.0 Eos % 3.8 % High 0.0-3.0 Baso % 0.5 % Normal 0.0-1.0 Immature Granulocyte % 0.3 % Normal 0-3.0 Nucleated Red Blood Cell % 0.0 % Normal 0-0 Neutrophils # 3.0 10 Normal 1.5-8.5 Lymph # 0.3 10 Low 1.5-5.0 Bradford # 0.5 10 Normal 0.0-0.8 Eos # 0.2 10 Normal 0.0-0.5 Baso # 0.0 10 Normal 0.0-0.2 PT & Aptt 08/06/2020 [facility] Main Lab [address] [place] [address] [phone] Prothrombin Time 16.0 seconds High 12.5-14.3 Inr 1.25 Normal 14 Partial Thromboplastin Time 33.0 seconds Normal 24.2-38.5 Basic Metabolic Profile 08/06/2020 [facility] [address] [place] [address] [phone] Glucose, Fasting 109 mg/dL High 70-100 Blood [...] mg/dL Low 8.8-10.2 Complete Blood Count 08/05/2020 [facility] enter Main Lab [address] [place] [address] [phone] White Blood Count 3.7 10 Low 4.0-10.0 [...] % Normal 0-0 Laboratory test finding 08/05/2020 [facility] [address] [place] [address] [phone] Immature Platelet Fraction 1.1 % Normal 0.0-1 0.91 16 Comprehensive Metabolic Profil 08/05/2020 [facility] [address] [place] [address] [phone] [phone] Glucose, Fasting 123 mg/dL High 70-100 Blood [...] & Screen -Incl Blood Type,Ezra,AB SC 08/05/2020 [facility] [address] [place] [address] [phone] [phone] Blood Type O POSITIVE Normal AB Screen (Indirect James)Vis POSITIVE Normal Laboratory test finding 08/05/2020 [facility] [address] [place] [address] [phone] Antibody Identification Anti-I Normal 18 Laboratory test finding 08/05/2020 [facility] [address] [place] [address] [phone] Packed Cells TRANSFUSED PRODU <SEE NOTE> 19 Laboratory test finding 08/05/2020 [facility] [address] [place] [address] [phone] Pathology Request For Service (SEE NOTE) 20 1 Units are mL/min/1.73 m2 Chronic Kidney Disease Staging per NKF: Stage I & II GFR >=60 Normal to Mildly Decreased Stage III GFR 30-59 Moderately Decreased Stage IV GFR 15-29 Severely Decreased Stage V GFR <15 Very Little GFR Left ESRD GFR <15 on [employer]SULTANT 2 Troponin I Reference Interva l for [place] LOCI: 99th Percentile= 0.00-0.045 ng/ml Risk Stratification: [...] 4 Troponin I Reference Interva l for [place] LOCI: 99th Percentile= 0.00-0.045 ng/ml Risk Stratification: [...] Little GFR Left ESRD GFR <15 on [employer] CONSULTANT 6 TRANSFUSED PRODUCT: PACKED C ELLS COUNT: 1 7 Anti-Jka 8 Units are mL/min/1.73 m2 Chronic Kidney Disease Staging per NKF: Stage I & II GFR >=60 Normal to Mildly Decreased Stage III GFR 30-59 Moderately Decreased Stage IV GFR 15-29 Severely Decreased Stage V GFR <15 Very Little GFR Left ESRD GFR <15 on [employer] CONSULTANT 9 Units are mL/min/1.73 m2 Chronic Kidney Disease Staging per NKF: Stage I & II GFR >=60 Normal to Mildly Decreased Stage III GFR 30-59 Moderately Decreased Stage IV GFR 15-29 Severely Decreased Stage V GFR <15 Very Little GFR Left ESRD GFR <15 on [employer] CONSULTANT 10 Units are mL/min/1.73 m2 Chronic Kidney Disease Staging per NKF: Stage I & II GFR >=60 Normal to Mildly Decreased Stage III GFR 30-59 Moderately Decreased Stage IV GFR 15-29 Severely Decreased Stage V GFR <15 Very Little GFR Left ESRD GFR <15 on [employer] CONSULTANT 11 Anti-Jka 12 TRANSFUSED PRODUCT: PACKED C ELLS COUNT: 1 13 Units are mL/min/1.73 m2 Chronic Kidney Disease Staging per NKF: Stage I & II GFR >=60 Normal to Mildly Decreased Stage III GFR 30-59 Moderately Decreased Stage IV GFR 15-29 Severely Decreased Stage V GFR <15 Very Little GFR Left ESRD GFR <15 on [employer] CONS[employer]ANT 14 THERAPUTIC HUMAN INR VALUES INDICATIONS NORMAL [...] Little GFR Left ESRD GFR <15 on [employer]ANT 16 LAB DRAW 17 Units are mL/min/1.73 m2 Chronic Kidney Disease Staging per NKF: Stage I & II GFR >=60 Normal to Mildly Decreased Stage III GFR 30-59 Moderately Decreased Stage IV GFR 15-29 Severely Decreased Stage V GFR <15 Very Little GFR Left ESRD GFR <15 on [employer] CONSULTANT 18 Anti-Jka 19 TRANSFUSED PRODUCT: PACKED C [...] 1238 Procedures Date Code Description Status 08/05/2020 16628 Colonoscopy,W/Directed Submucosa l Injections, Any Substance Completed 08/05/2020 17873 Colonoscopy Flexible Proximal To Splenic Flexure W/Biopsy Single/ Completed 08/05/2020 88680 Endoscopy Upper GI Complex Diagn ostic Completed Medical Devices Description No Information Available Encounters Type Date Location Provider Dx Diagnosis Office Visit 06/30/2020 1:00p [facility] Gerhard bowers JR, MD D50.9 Iron deficiency anemia, unspecified Office Visit 06/28/2020 3:15p [facility] Lina maxwell MD N18.4 Chronic [...] to have his diuretics modified by his finisher cold rolling as well during this outpatient procedure. In any case patient understands risks as well as benefits associated with the upper and lower endoscopy would like to proceed with this as scheduled. Functional Status Description No Information Available Mental Status Description No Information Available Referrals Refer to Reason for Referral Status Appt Date Lina Jade MD EVAL [facility] Closed 06/28/2020 [address] [facility], [address] [place] [address] [phone]
--- OUTSIDE RECORDS SUMMARY | 2020-08-13 09:52 | CCD | Continuity of Care Document ---
Author Organization Unknown Address Unknown Phone Unavailable Care Team Providers Care Barge Worker Name Role Phone Lanie Meng M.D. AUTM Gabriel Ng D.O. AUTM [phone] Problems Description No Active Problems Social History [...] Tablets hs Unknown Calcium 600 + D [id number] Tab lets once a day Unknown Torsemide [...] qd Unknown Vitamin D3 Ultra Potency 1.25mg (27403 Ut) Tablets take 1 tab by mouth qd Unknown Immunizations Description No Information Available Vital Signs Date Vital Result Comment 06/30/2020 1:25pm BP Systolic 108 mmHg BP Diastolic 56 mmHg Heart Rate 76 /min Height 69 inches 5'9" Weight 325.00 lb BMI (Body Mass Index) 48.0 kg/m2 [place] Body Weight 160 lb Weight 147.420 kg BSA (Body Surface Area) 2.54 m2 06/28/2020 3:25pm BP Systolic 139 mmHg BP Diastolic 69 mmHg Height 69 inches 5'9" Weight 300.00 lb Stated BMI (Body Mass Index) 44.3 kg/m2 [place] Body Weight 160 lb Weight 136.080 kg BSA (Body Surface Area) 2.45 m2 Results Test Acquired Date Facility Test Result H/L Range Note CBC With Differential 08/11/[address] [facility] [address] [place] [address] [phone] White Blood Count 6.3 10 Normal 4.0-10.0 [...] 36.0-66.0 Lymph % 4.1 % Low 24.0-44.0 [place] % 12.0 % High 0.0-5.0 Eos % 3.6 % High 0.0-3.0 Baso % 0.3 % Normal 0.0-1.0 Immature Granulocyte % 0.6 % Normal 0-3.0 Nucleated Red Blood Cell % 0.0 % Normal 0-0 Neutrophils # 5.0 10 Normal 1.5-8.5 Lymph # 0.3 10 Low 1.5-5.0 [place] # 0.8 10 Normal 0.0-0.8 Eos # 0.2 10 Normal 0.0-0.5 Baso # 0.0 10 Normal 0.0-0.2 Basic Metabolic Profile 08/11/2020 [facility] [address] [place] [address]19 [phone] Glucose, Fasting 123 mg/dL High 70-100 Blood [...] mg/dL Low 8.8-10.2 Laboratory test finding 08/10/2020 [facility] [address] [place] [address] [phone] Troponin I 0.03 NG/ML Significant change down < 0.10 2 Cardiac Marker Panel 08/10/2020 [facility] Main Lab [address] [place] [phone] [phone] CPK Creatine Phosphokinase 42 U/L Normal 39-30 8 CK-MB Value Mass < 1.0 NG/ML Normal <3.6 MB/CK Relative Index 2.38 Normal < Or =4 3 Troponin I 0.04 NG/ML Normal < 0.10 4 CBC With Differential 08/10/[address] [facility] [address] [place] [address] [phone] White Blood Count 4.4 10 Normal 4.0-10.0 [...] 36.0-66.0 Lymph % 7.9 % Low 24.0-44.0 [place] % 12.4 % High 0.0-5.0 Eos % 7.4 % High 0.0-3.0 Baso % 0.5 % Normal 0.0-1.0 Immature Granulocyte % 0.7 % Normal 0-3.0 Nucleated Red Blood Cell % 0.0 % Normal 0-0 Neutrophils # 3.2 10 Normal 1.5-8.5 Lymph # 0.4 10 Low 1.5-5.0 [place] # 0.6 10 Normal 0.0-0.8 Eos # 0.3 10 Normal 0.0-0.5 Baso # 0.0 10 Normal 0.0-0.2 Basic Metabolic Profile 08/10/2020 [facility] [address] [place] [address] [phone] Glucose, Fasting 99 mg/dL Normal 70-100 Blood [...] mg/dL Normal 8.8-10.2 Laboratory test finding 08/09/2020 [facility] [address] [place] [address] [phone] Packed Cells TRANSFUSED PRODU <SEE NOTE> 6 Type & Screen -Incl Blood Type,Ezra,AB SC 08/09/[address] [facility] [address] [place] [address] [phone] Blood Type O POSITIVE Normal AB Screen (Indirect James)Vis POSITIVE Normal Laboratory test finding 08/09/2020 [facility] [address] [place] [address] [phone] Antibody Identification Anti-I Normal 7 CBC With Differential 08/09/[address] [facility] [address] [place] [address] [phone] White Blood Count 4.5 10 Normal 4.0-10.0 [...] 36.0-66.0 Lymph % 8.1 % Low 24.0-44.0 [place] % 9.6 % High 0.0-5.0 Eos % 7.6 % High 0.0-3.0 Baso % 0.2 % Normal 0.0-1.0 Immature Granulocyte % 0.9 % Normal 0-3.0 Nucleated Red Blood Cell % 0.0 % Normal 0-0 Neutrophils # 3.3 10 Normal 1.5-8.5 Lymph # 0.4 10 Low 1.5-5.0 [place] # 0.4 10 Normal 0.0-0.8 Eos # 0.3 10 Normal 0.0-0.5 Baso # 0.0 10 Normal 0.0-0.2 Basic Metabolic Profile 08/09/2020 [facility] [address] [place] [address] [phone] Glucose, Fasting 112 mg/dL High 70-100 Blood [...] mg/dL Low 8.8-10.2 CBC With Differential 08/08/[address] [facility] [address] [place] [address] [phone] White Blood Count 4.4 10 Normal 4.0-10.0 [...] 36.0-66.0 Lymph % 8.7 % Low 24.0-44.0 [place] % 10.7 % High 0.0-5.0 Eos % 7.5 % High 0.0-3.0 Baso % 0.5 % Normal 0.0-1.0 Immature Granulocyte % 0.7 % Normal 0-3.0 Nucleated Red Blood Cell % 0.0 % Normal 0-0 Neutrophils # 3.2 10 Normal 1.5-8.5 Lymph # 0.4 10 Low 1.5-5.0 [place] # 0.5 10 Normal 0.0-0.8 Eos # 0.3 10 Normal 0.0-0.5 Baso # 0.0 10 Normal 0.0-0.2 Basic Metabolic Profile 08/08/2020 [facility] [address] [place] [address] [phone] Glucose, Fasting 108 mg/dL High 70-100 Blood [...] mg/dL Normal 8.8-10.2 Basic Metabolic Profile 08/07/2020 [facility] [address], [place] [phone] Glucose, Fasting 112 mg/dL High 70-100 Blood [...] mg/dL Low 8.8-10.2 CBC With Differential 08/07/[address] [facility] [address] [place] [address] [phone] White Blood Count 3.8 10 Low 4.0-10.0 [...] 36.0-66.0 Lymph % 9.9 % Low 24.0-44.0 [place] % 12.3 % High 0.0-5.0 Eos % 6.0 % High 0.0-3.0 Baso % 0.3 % Normal 0.0-1.0 Immature Granulocyte % 0.5 % Normal 0-3.0 Nucleated Red Blood Cell % 0.0 % Normal 0-0 Neutrophils # 2.7 10 Normal 1.5-8.5 Lymph # 0.4 10 Low 1.5-5.0 [place] # 0.5 10 Normal 0.0-0.8 Eos # 0.2 10 Normal 0.0-0.5 Baso # 0.0 10 Normal 0.0-0.2 Laboratory test finding 08/07/2020 [facility] [address] [place] [address] 27905 [phone] Antibody Identification Anti-I Normal 11 Type & Screen -Incl Blood Type,Ezra,AB SC 08/07/[address] [facility] [address] [place] [address] [phone] [phone] Blood Type O POSITIVE Normal AB Screen (Indirect James)Vis POSITIVE Normal Laboratory test finding 08/07/2020 [facility] [address] [place] [address] [phone] [phone] Packed Cells TRANSFUSED PRODU <SEE NOTE> 12 Renal Profile 08/06/2020 [facility] Main Lab [address] [place] [address] 00724 [phone] Glucose, Fasting 157 mg/dL High 70-100 Blood [...] GM/DL Low 3.2-5.2 CBC With Differential 08/06/[address] [facility] [address] [place] [address] 20814 [phone] White Blood Count 3.9 10 Low 4.0-10.0 [...] 36.0-66.0 Lymph % 8.4 % Low 24.0-44.0 [place] % 12.0 % High 0.0-5.0 Eos % 3.8 % High 0.0-3.0 Baso % 0.5 % Normal 0.0-1.0 Immature Granulocyte % 0.3 % Normal 0-3.0 Nucleated Red Blood Cell % 0.0 % Normal 0-0 Neutrophils # 3.0 10 Normal 1.5-8.5 Lymph # 0.3 10 Low 1.5-5.0 [place] # 0.5 10 Normal 0.0-0.8 Eos # 0.2 10 Normal 0.0-0.5 Baso # 0.0 10 Normal 0.0-0.2 PT & Aptt 08/06/2020 [facility] Main Lab [address] [place] [address] [phone] Prothrombin Time 16.0 seconds High 12.5-14.3 Inr 1.25 Normal 14 Partial Thromboplastin Time 33.0 seconds Normal 24.2-38.5 Basic Metabolic Profile 08/06/2020 [facility] [address] [place] [address] 29341 [phone] Glucose, Fasting 109 mg/dL High 70-100 Blood [...] mg/dL Low 8.8-10.2 Complete Blood Count 08/05/2020 [facility] enter Main Lab [address] [place] [address] 47546 [phone] White Blood Count 3.7 10 Low 4.0-10.0 [...] % Normal 0-0 Laboratory test finding 08/05/2020 [facility] [address] [place] [address] 34405 [phone] Immature Platelet Fraction 1.1 % Normal 0.0-1 0.91 16 Comprehensive Metabolic Profil 08/05/[address] [facility] [address] [place] [address] 40833 [phone] Glucose, Fasting 123 mg/dL High 70-100 Blood [...] & Screen -Incl Blood Type,Ezra,AB SC 08/05/[address] [facility] [address] [place] [address] [phone] [phone] Blood Type O POSITIVE Normal AB Screen (Indirect James)Vis POSITIVE Normal Laboratory test finding 08/05/2020 [facility] [address] [place] [address] [phone] Antibody Identification Anti-I Normal 18 Laboratory test finding 08/05/2020 [facility] [address] [place] [address] 22208 [phone] Packed Cells TRANSFUSED PRODU <SEE NOTE> 19 Laboratory test finding 08/05/2020 [facility] [address] [place] [address] [phone] Pathology Request For Service (SEE NOTE) 20 1 Units are mL/min/1.73 m2 Chronic Kidney Disease Staging per NKF: Stage I & II GFR >=60 Normal to Mildly Decreased Stage III GFR 30-59 Moderately Decreased Stage IV GFR 15-29 Severely Decreased Stage V GFR <15 Very Little GFR Left ESRD GFR <15 on LEGAL COUNSEL 2 Troponin I Reference Interva l for [employer] LOCI: 99th Percentile= 0.00-0.045 ng/ml Risk Stratification: [...] 4 Troponin I Reference Interva l for [employer] LOCI: 99th Percentile= 0.00-0.045 ng/ml Risk Stratification: [...] Little GFR Left ESRD GFR <15 on LEGAL COUNSEL 6 TRANSFUSED PRODUCT: PACKED C ELLS COUNT: 1 7 Anti-Jka 8 Units are mL/min/1.73 m2 Chronic Kidney Disease Staging per NKF: Stage I & II GFR >=60 Normal to Mildly Decreased Stage III GFR 30-59 Moderately Decreased Stage IV GFR 15-29 Severely Decreased Stage V GFR <15 Very Little GFR Left ESRD GFR <15 on LEGAL COUNSEL 9 Units are mL/min/1.73 m2 Chronic Kidney Disease Staging per NKF: Stage I & II GFR >=60 Normal to Mildly Decreased Stage III GFR 30-59 Moderately Decreased Stage IV GFR 15-29 Severely Decreased Stage V GFR <15 Very Little GFR Left ESRD GFR <15 on LEGAL COUNSEL 10 Units are mL/min/1.73 m2 Chronic Kidney Disease Staging per NKF: Stage I & II GFR >=60 Normal to Mildly Decreased Stage III GFR 30-59 Moderately Decreased Stage IV GFR 15-29 Severely Decreased Stage V GFR <15 Very Little GFR Left ESRD GFR <15 on LEGAL COUNSEL 11 Anti-Jka 12 TRANSFUSED PRODUCT: PACKED C ELLS COUNT: 1 13 Units are mL/min/1.73 m2 Chronic Kidney Disease Staging per NKF: Stage I & II GFR >=60 Normal to Mildly Decreased Stage III GFR 30-59 Moderately Decreased Stage IV GFR 15-29 Severely Decreased Stage V GFR <15 Very Little GFR Left ESRD GFR <15 on LEGAL COUNSEL 14 THERAPUTIC HUMAN INR VALUES INDICATIONS NORMAL [...] Little GFR Left ESRD GFR <15 on LEGAL COUNSEL 16 LAB DRAW 17 Units are mL/min/1.73 m2 Chronic Kidney Disease Staging per NKF: Stage I & II GFR >=60 Normal to Mildly Decreased Stage III GFR 30-59 Moderately Decreased Stage IV GFR 15-29 Severely Decreased Stage V GFR <15 Very Little GFR Left ESRD GFR <15 on LEGAL COUNSEL 18 Anti-Jka 19 TRANSFUSED PRODUCT: PACKED C [...] 1238 Procedures Date Code Description Status 08/05/2020 79309 Colonoscopy,W/Directed Submucosa l Injections, Any Substance Completed 08/05/2020 50187 Colonoscopy Flexible Proximal To Splenic Flexure W/Biopsy Single/ Completed 08/05/2020 55273 Endoscopy Upper GI Complex Diagn ostic Completed Medical Devices Description No Information Available Encounters Type Date Location Provider Dx Diagnosis Office Visit 06/30/2020 1:00p [facility] Gerhard bowers JR, MD D50.9 Iron deficiency anemia, unspecified Office Visit 06/28/2020 3:15p [facility] Lina maxwell MD N18.4 [...] to have his diuretics modified by his computer laboratory technician as well during this outpatient procedure. In any case patient understands risks as well as benefits associated with the upper and lower endoscopy would like to proceed with this as scheduled. Functional Status Description No Information Available Mental Status Description No Information Available Referrals Refer to Reason for Referral Status Appt Date Lina Jade MD EVAL [facility] Closed 06/28/2020 [address] [facility], [address] [place] [address] [phone]
--- OUTSIDE RECORDS SUMMARY | 2020-08-13 09:52 | CCD | Continuity of Care Document ---
Author Organization Unknown Address Unknown Phone Unavailable Care Team Providers Care Art Objects Repairer Name Role Phone Lanie Meng M.D. AUTM [phone] Gabriel Ng D.O. AUTM [phone] Problems Description No Active Problems Social History [...] Tablets hs Unknown Calcium 600 + D [id number] Tab lets once a day Unknown Torsemide [...] qd Unknown Vitamin D3 Ultra Potency 1.25mg (90463 Ut) Tablets take 1 tab by mouth qd Unknown Immunizations Description No Information Available Vital Signs Date Vital Result Comment 06/30/2020 1:25pm BP Systolic 108 mmHg BP Diastolic 56 mmHg Heart Rate 76 /min Height 69 inches 5'9" Weight 325.00 lb BMI (Body Mass Index) 48.0 kg/m2 [place] Body Weight 160 lb Weight 147.420 kg BSA (Body Surface Area) 2.54 m2 06/28/2020 3:25pm BP Systolic 139 mmHg BP Diastolic 69 mmHg Height 69 inches 5'9" Weight 300.00 lb Stated BMI (Body Mass Index) 44.3 kg/m2 [place] Body Weight 160 lb Weight 136.080 kg BSA (Body Surface Area) 2.45 m2 Results Test Acquired Date Facility Test Result H/L Range Note CBC With Differential 08/11/2020 [facility] [address] [place] [phone] White Blood Count 6.3 10 Normal 4.0-10.0 [...] 36.0-66.0 Lymph % 4.1 % Low 24.0-44.0 [place] % 12.0 % High 0.0-5.0 Eos % 3.6 % High 0.0-3.0 Baso % 0.3 % Normal 0.0-1.0 Immature Granulocyte % 0.6 % Normal 0-3.0 Nucleated Red Blood Cell % 0.0 % Normal 0-0 Neutrophils # 5.0 10 Normal 1.5-8.5 Lymph # 0.3 10 Low 1.5-5.0 [place] # 0.8 10 Normal 0.0-0.8 Eos # 0.2 10 Normal 0.0-0.5 Baso # 0.0 10 Normal 0.0-0.2 Basic Metabolic Profile 08/11/2020 [facility] [address] [place] [phone] Glucose, Fasting 123 mg/dL High 70-100 Blood [...] mg/dL Low 8.8-10.2 Laboratory test finding 08/10/2020 [facility] [address] [place] [address] [phone] Troponin I 0.03 NG/ML Significant change down < 0.10 2 Cardiac Marker Panel 08/10/2020 [facility] [address] [place] [address]204 [phone] CPK Creatine Phosphokinase 42 U/L Normal 39-30 8 CK-MB Value Mass < 1.0 NG/ML Normal <3.6 MB/CK Relative Index 2.38 Normal < Or =4 3 Troponin I 0.04 NG/ML Normal < 0.10 4 CBC With Differential 08/10/2020 [facility] [address] [place] [address] 33488 [phone] White Blood Count 4.4 10 Normal 4.0-10.0 [...] 36.0-66.0 Lymph % 7.9 % Low 24.0-44.0 [place] % 12.4 % High 0.0-5.0 Eos % 7.4 % High 0.0-3.0 Baso % 0.5 % Normal 0.0-1.0 Immature Granulocyte % 0.7 % Normal 0-3.0 Nucleated Red Blood Cell % 0.0 % Normal 0-0 Neutrophils # 3.2 10 Normal 1.5-8.5 Lymph # 0.4 10 Low 1.5-5.0 [place] # 0.6 10 Normal 0.0-0.8 Eos # 0.3 10 Normal 0.0-0.5 Baso # 0.0 10 Normal 0.0-0.2 Basic Metabolic Profile 08/10/2020 [facility] [address] [place] [address] [phone] Glucose, Fasting 99 mg/dL Normal 70-100 Blood [...] mg/dL Normal 8.8-10.2 Laboratory test finding 08/09/2020 [facility] [address] [place] [address] [phone] Packed Cells TRANSFUSED PRODU <SEE NOTE> 6 Type & Screen -Incl Blood Type,Ezra,AB SC 08/09/2020 [facility] [address] [place] [address] 90853 [phone] Blood Type O POSITIVE Normal AB Screen (Indirect James)Vis POSITIVE Normal Laboratory test finding 08/09/2020 [facility] [address] [place] [address]259 [phone] Antibody Identification Anti-I Normal 7 CBC With Differential 08/09/2020 [facility] [address] [place] [address] [phone] White Blood Count 4.5 10 Normal 4.0-10.0 [...] 36.0-66.0 Lymph % 8.1 % Low 24.0-44.0 [place] % 9.6 % High 0.0-5.0 Eos % 7.6 % High 0.0-3.0 Baso % 0.2 % Normal 0.0-1.0 Immature Granulocyte % 0.9 % Normal 0-3.0 Nucleated Red Blood Cell % 0.0 % Normal 0-0 Neutrophils # 3.3 10 Normal 1.5-8.5 Lymph # 0.4 10 Low 1.5-5.0 [place] # 0.4 10 Normal 0.0-0.8 Eos # 0.3 10 Normal 0.0-0.5 Baso # 0.0 10 Normal 0.0-0.2 Basic Metabolic Profile 08/09/2020 [facility] [address] [place] [address] [phone] Glucose, Fasting 112 mg/dL High 70-100 Blood [...] mg/dL Low 8.8-10.2 CBC With Differential 08/08/2020 [facility] [address] [place] [address] [phone] White Blood Count 4.4 10 Normal 4.0-10.0 [...] 36.0-66.0 Lymph % 8.7 % Low 24.0-44.0 [place] % 10.7 % High 0.0-5.0 Eos % 7.5 % High 0.0-3.0 Baso % 0.5 % Normal 0.0-1.0 Immature Granulocyte % 0.7 % Normal 0-3.0 Nucleated Red Blood Cell % 0.0 % Normal 0-0 Neutrophils # 3.2 10 Normal 1.5-8.5 Lymph # 0.4 10 Low 1.5-5.0 [place] # 0.5 10 Normal 0.0-0.8 Eos # 0.3 10 Normal 0.0-0.5 Baso # 0.0 10 Normal 0.0-0.2 Basic Metabolic Profile 08/08/2020 [facility] [address] [place] [address] [phone] Glucose, Fasting 108 mg/dL High 70-100 Blood [...] mg/dL Normal 8.8-10.2 Basic Metabolic Profile 08/07/2020 [facility] [address] [place], [place] [phone] Glucose, Fasting 112 mg/dL High 70-100 Blood [...] mg/dL Low 8.8-10.2 CBC With Differential 08/07/2020 [facility] [address] [place] [address] [phone] White Blood Count 3.8 10 Low 4.0-10.0 [...] 36.0-66.0 Lymph % 9.9 % Low 24.0-44.0 [place] % 12.3 % High 0.0-5.0 Eos % 6.0 % High 0.0-3.0 Baso % 0.3 % Normal 0.0-1.0 Immature Granulocyte % 0.5 % Normal 0-3.0 Nucleated Red Blood Cell % 0.0 % Normal 0-0 Neutrophils # 2.7 10 Normal 1.5-8.5 Lymph # 0.4 10 Low 1.5-5.0 [place] # 0.5 10 Normal 0.0-0.8 Eos # 0.2 10 Normal 0.0-0.5 Baso # 0.0 10 Normal 0.0-0.2 Laboratory test finding 08/07/2020 [facility] [address] [place] [address] 84607 [phone] Antibody Identification Anti-I Normal 11 Type & Screen -Incl Blood Type,Ezra,AB SC 08/07/2020 [facility] [address] [place] [address] 07[address] [phone] Blood Type O POSITIVE Normal AB Screen (Indirect James)Vis POSITIVE Normal Laboratory test finding 08/07/2020 [facility] [address] [place] [address] 95605 [phone] Packed Cells TRANSFUSED PRODU <SEE NOTE> 12 Renal Profile 08/06/2020 [facility] [address] [place] [address] 30170 [phone] Glucose, Fasting 157 mg/dL High 70-100 Blood [...] GM/DL Low 3.2-5.2 CBC With Differential 08/06/2020 [facility] [address] [place] [address] 08216 [phone] White Blood Count 3.9 10 Low 4.0-10.0 [...] 36.0-66.0 Lymph % 8.4 % Low 24.0-44.0 [place] % 12.0 % High 0.0-5.0 Eos % 3.8 % High 0.0-3.0 Baso % 0.5 % Normal 0.0-1.0 Immature Granulocyte % 0.3 % Normal 0-3.0 Nucleated Red Blood Cell % 0.0 % Normal 0-0 Neutrophils # 3.0 10 Normal 1.5-8.5 Lymph # 0.3 10 Low 1.5-5.0 [place] # 0.5 10 Normal 0.0-0.8 Eos # 0.2 10 Normal 0.0-0.5 Baso # 0.0 10 Normal 0.0-0.2 PT & Aptt 08/06/2020 [facility] [address] [place] [address] [phone] Prothrombin Time 16.0 seconds High 12.5-14.3 Inr 1.25 Normal 14 Partial Thromboplastin Time 33.0 seconds Normal 24.2-38.5 Basic Metabolic Profile 08/06/2020 [facility] [address] [place] [address] 22781 [phone] Glucose, Fasting 109 mg/dL High 70-100 Blood [...] mg/dL Low 8.8-10.2 Complete Blood Count 08/05/2020 [facility] [address] [place] [address] 71387 [phone] White Blood Count 3.7 10 Low 4.0-10.0 [...] % Normal 0-0 Laboratory test finding 08/05/2020 [facility] [address] [place] [address] 82265 [phone] Immature Platelet Fraction 1.1 % Normal 0.0-1 0.91 16 Comprehensive Metabolic Profil 08/05/2020 [facility] [address] [place] [address] 13600 [phone] Glucose, Fasting 123 mg/dL High 70-100 Blood [...] & Screen -Incl Blood Type,Ezra,AB SC 08/05/2020 [facility] [address] [place] [address] 22654 [phone] Blood Type O POSITIVE Normal AB Screen (Indirect James)Vis POSITIVE Normal Laboratory test finding 08/05/2020 [facility] [address] [place] [address] [phone] Antibody Identification Anti-I Normal 18 Laboratory test finding 08/05/2020 [facility] [address] [place] [phone] Packed Cells TRANSFUSED PRODU <SEE NOTE> 19 Laboratory test finding 08/05/2020 [facility] [address] [place] [address] [phone] Pathology Request For Service (SEE NOTE) 20 1 Units are mL/min/1.73 m2 Chronic Kidney Disease Staging per NKF: Stage I & II GFR >=60 Normal to Mildly Decreased Stage III GFR 30-59 Moderately Decreased Stage IV GFR 15-29 Severely Decreased Stage V GFR <15 Very Little GFR Left ESRD GFR <15 on CERTIFIED SURGICAL TECHNOLOGIST 2 Troponin I Reference Interva l for [employer] LOCI: 99th Percentile= 0.00-0.045 ng/ml Risk Stratification: [...] 4 Troponin I Reference Interva l for [employer] LOCI: 99th Percentile= 0.00-0.045 ng/ml Risk Stratification: [...] Little GFR Left ESRD GFR <15 on CERTIFIED SURGICAL TECHNOLOGIST 6 TRANSFUSED PRODUCT: PACKED C ELLS COUNT: 1 7 Anti-Jka 8 Units are mL/min/1.73 m2 Chronic Kidney Disease Staging per NKF: Stage I & II GFR >=60 Normal to Mildly Decreased Stage III GFR 30-59 Moderately Decreased Stage IV GFR 15-29 Severely Decreased Stage V GFR <15 Very Little GFR Left ESRD GFR <15 on CERTIFIED SURGICAL TECHNOLOGIST 9 Units are mL/min/1.73 m2 Chronic Kidney Disease Staging per NKF: Stage I & II GFR >=60 Normal to Mildly Decreased Stage III GFR 30-59 Moderately Decreased Stage IV GFR 15-29 Severely Decreased Stage V GFR <15 Very Little GFR Left ESRD GFR <15 on CERTIFIED SURGICAL TECHNOLOGIST 10 Units are mL/min/1.73 m2 Chronic Kidney Disease Staging per NKF: Stage I & II GFR >=60 Normal to Mildly Decreased Stage III GFR 30-59 Moderately Decreased Stage IV GFR 15-29 Severely Decreased Stage V GFR <15 Very Little GFR Left ESRD GFR <15 on CERTIFIED SURGICAL TECHNOLOGIST 11 Anti-Jka 12 TRANSFUSED PRODUCT: PACKED C ELLS COUNT: 1 13 Units are mL/min/1.73 m2 Chronic Kidney Disease Staging per NKF: Stage I & II GFR >=60 Normal to Mildly Decreased Stage III GFR 30-59 Moderately Decreased Stage IV GFR 15-29 Severely Decreased Stage V GFR <15 Very Little GFR Left ESRD GFR <15 on CERTIFIED SURGICAL TECHNOLOGIST 14 THERAPUTIC HUMAN INR VALUES INDICATIONS NORMAL [...] Little GFR Left ESRD GFR <15 on CERTIFIED SURGICAL TECHNOLOGIST 16 LAB DRAW 17 Units are mL/min/1.73 m2 Chronic Kidney Disease Staging per NKF: Stage I & II GFR >=60 Normal to Mildly Decreased Stage III GFR 30-59 Moderately Decreased Stage IV GFR 15-29 Severely Decreased Stage V GFR <15 Very Little GFR Left ESRD GFR <15 on CERTIFIED SURGICAL TECHNOLOGIST 18 Anti-Jka 19 TRANSFUSED PRODUCT: PACKED C [...] 1238 Procedures Date Code Description Status 08/05/2020 51556 Colonoscopy,W/Directed Submucosa l Injections, Any Substance Completed 08/05/2020 33164 Colonoscopy Flexible Proximal To Splenic Flexure W/Biopsy Single/ Completed 08/05/2020 00556 Endoscopy Upper GI Complex Diagn ostic Completed Medical Devices Description No Information Available Encounters Type Date Location Provider Dx Diagnosis Office Visit 06/30/2020 1:00p [facility] Gerhard bowers JR, MD D50.9 Iron deficiency anemia, unspecified Office Visit 06/28/2020 3:15p [facility] Lina maxwell MD N18.4 [...] to have his diuretics modified by his city administrator as well during this outpatient procedure. In any case patient understands risks as well as benefits associated with the upper and lower endoscopy would like to proceed with this as scheduled. Functional Status Description No Information Available Mental Status Description No Information Available Referrals Refer to Reason for Referral Status Appt Date Lina Jade MD [facility]AL [facility] Closed 06/28/2020 [address], [address] [place] [address] [phone]
--- OUTSIDE RECORDS SUMMARY | 2020-08-13 09:52 | CCD ---
Continuity of Care Document (CCD) Created on: 08/11/2020 Jeffrey Chaudhary External Reference #: [id number] : [id number] Sex: Male Author Organization Unknown Address Unknown Phone Unavailable Care Team Providers Care Coordinator Integrated Marketing Name Role Phone Lanie Meng M.D. AUTM [phone] Gabriel Ng D.O. AUTM [phone] Problems Description No Active Problems Social History [...] Tablets hs Unknown Calcium 600 + D [id number] Tab lets once a day Unknown Torsemide [...] qd Unknown Vitamin D3 Ultra Potency 1.25mg (95199 Ut) Tablets take 1 tab by mouth qd Unknown Immunizations Description No Information Available Vital Signs Date Vital Result Comment 06/30/2020 1:25pm BP Systolic 108 mmHg BP Diastolic 56 mmHg Heart Rate 76 /min Height 69 inches 5'9" Weight 325.00 lb BMI (Body Mass Index) 48.0 kg/m2 [place] Body Weight 160 lb Weight 147.420 kg BSA (Body Surface Area) 2.54 m2 06/28/2020 3:25pm BP Systolic 139 mmHg BP Diastolic 69 mmHg Height 69 inches 5'9" Weight 300.00 lb Stated BMI (Body Mass Index) 44.3 kg/m2 [place] Body Weight 160 lb Weight 136.080 kg BSA (Body Surface Area) 2.45 m2 Results Test Acquired Date Facility Test Result H/L Range Note CBC With Differential 08/11/2020 [facility] [address] [place] [address] 7[address]32 [phone] White Blood Count 6.3 10 Normal 4.0-10.0 [...] 36.0-66.0 Lymph % 4.1 % Low 24.0-44.0 [place] % 12.0 % High 0.0-5.0 Eos % 3.6 % High 0.0-3.0 Baso % 0.3 % Normal 0.0-1.0 Immature Granulocyte % 0.6 % Normal 0-3.0 Nucleated Red Blood Cell % 0.0 % Normal 0-0 Neutrophils # 5.0 10 Normal 1.5-8.5 Lymph # 0.3 10 Low 1.5-5.0 [place] # 0.8 10 Normal 0.0-0.8 Eos # 0.2 10 Normal 0.0-0.5 Baso # 0.0 10 Normal 0.0-0.2 Basic Metabolic Profile 08/11/2020 [facility] Main Lab [address] [place] [address] 35383 [phone] Glucose, Fasting 123 mg/dL High 70-100 Blood [...] mg/dL Low 8.8-10.2 Laboratory test finding 08/10/2020 [facility] Main Lab [address] [place] [address] 61344 [phone] Troponin I 0.03 NG/ML Significant change down < 0.10 2 Cardiac Marker Panel 08/10/2020 [facility] enter Main Lab [address] [place] [address] 63106 [phone] CPK Creatine Phosphokinase 42 U/L Normal 39-30 8 CK-MB Value Mass < 1.0 NG/ML Normal <3.6 MB/CK Relative Index 2.38 Normal < Or =4 3 Troponin I 0.04 NG/ML Normal < 0.10 4 CBC With Differential 08/10/2020 [facility] Main [facility] [address] [place] [address] 63766 [phone] White Blood Count 4.4 10 Normal 4.0-10.0 [...] 36.0-66.0 Lymph % 7.9 % Low 24.0-44.0 [place] % 12.4 % High 0.0-5.0 Eos % 7.4 % High 0.0-3.0 Baso % 0.5 % Normal 0.0-1.0 Immature Granulocyte % 0.7 % Normal 0-3.0 Nucleated Red Blood Cell % 0.0 % Normal 0-0 Neutrophils # 3.2 10 Normal 1.5-8.5 Lymph # 0.4 10 Low 1.5-5.0 [place] # 0.6 10 Normal 0.0-0.8 Eos # 0.3 10 Normal 0.0-0.5 Baso # 0.0 10 Normal 0.0-0.2 Basic Metabolic Profile 08/10/2020 [facility] Main Lab [address] [place] [address] [phone] Glucose, Fasting 99 mg/dL Normal 70-100 Blood [...] mg/dL Normal 8.8-10.2 Laboratory test finding 08/09/2020 [facility] Main Lab [address] [place] [address] [phone] Packed Cells TRANSFUSED PRODU <SEE NOTE> 6 Type & Screen -Incl Blood Type,Ezra,AB SC 08/09/2020 [facility] Main Lab [address] [place] [address] [phone] Blood Type O POSITIVE Normal AB Screen (Indirect James)Vis POSITIVE Normal Laboratory test finding 08/09/2020 [facility] Main Lab [address] [place] [address] 32268 [phone] Antibody Identification Anti-I Normal 7 CBC With Differential 08/09/2020 [facility] Lab [address] [place] [address] [phone] White Blood Count 4.5 10 Normal 4.0-10.0 [...] 36.0-66.0 Lymph % 8.1 % Low 24.0-44.0 [place] % 9.6 % High 0.0-5.0 Eos % 7.6 % High 0.0-3.0 Baso % 0.2 % Normal 0.0-1.0 Immature Granulocyte % 0.9 % Normal 0-3.0 Nucleated Red Blood Cell % 0.0 % Normal 0-0 Neutrophils # 3.3 10 Normal 1.5-8.5 Lymph # 0.4 10 Low 1.5-5.0 [place] # 0.4 10 Normal 0.0-0.8 Eos # 0.3 10 Normal 0.0-0.5 Baso # 0.0 10 Normal 0.0-0.2 Basic Metabolic Profile 08/09/2020 [facility] Lab [address] [place] [address] [phone] Glucose, Fasting 112 mg/dL High 70-100 Blood [...] Low 8.8-10.2 CBC With Differential 08/08/2020 [facility] Lab [address] [place] [address] [phone] White Blood Count 4.4 10 Normal 4.0-10.0 [...] 36.0-66.0 Lymph % 8.7 % Low 24.0-44.0 [place] % 10.7 % High 0.0-5.0 Eos % 7.5 % High 0.0-3.0 Baso % 0.5 % Normal 0.0-1.0 Immature Granulocyte % 0.7 % Normal 0-3.0 Nucleated Red Blood Cell % 0.0 % Normal 0-0 Neutrophils # 3.2 10 Normal 1.5-8.5 Lymph # 0.4 10 Low 1.5-5.0 [place] # 0.5 10 Normal 0.0-0.8 Eos # 0.3 10 Normal 0.0-0.5 Baso # 0.0 10 Normal 0.0-0.2 Basic Metabolic Profile 08/08/2020 [facility] Lab [address] [place] [address] [phone] Glucose, Fasting 108 mg/dL High 70-100 Blood [...] mg/dL Normal 8.8-10.2 Basic Metabolic Profile 08/07/2020 [facility] Lab [address] [place], [place] [phone] Glucose, Fasting 112 mg/dL High 70-100 Blood [...] Low 8.8-10.2 CBC With Differential 08/07/2020 [facility] Main Lab [address] [place] [address] [phone] White Blood Count 3.8 10 Low 4.0-10.0 [...] 36.0-66.0 Lymph % 9.9 % Low 24.0-44.0 [place] % 12.3 % High 0.0-5.0 Eos % 6.0 % High 0.0-3.0 Baso % 0.3 % Normal 0.0-1.0 Immature Granulocyte % 0.5 % Normal 0-3.0 Nucleated Red Blood Cell % 0.0 % Normal 0-0 Neutrophils # 2.7 10 Normal 1.5-8.5 Lymph # 0.4 10 Low 1.5-5.0 [place] # 0.5 10 Normal 0.0-0.8 Eos # 0.2 10 Normal 0.0-0.5 Baso # 0.0 10 Normal 0.0-0.2 Laboratory test finding 08/07/2020 [facility] Lab [address] [place] [address] 44996 [phone] Antibody Identification Anti-I Normal 11 Type & Screen -Incl Blood Type,Ezra,AB SC 08/07/2020 [facility] [address] [place] [address] 02536 [phone] Blood Type O POSITIVE Normal AB Screen (Indirect James)Vis POSITIVE Normal Laboratory test finding 08/07/2020 [facility] Main Lab [address] [place] [address] 13280 [phone] Packed Cells TRANSFUSED PRODU <SEE NOTE> 12 Renal Profile 08/06/2020 [facility] Main Lab [address] [place] [address] 16894 [phone] Glucose, Fasting 157 mg/dL High 70-100 Blood [...] Low 3.2-5.2 CBC With Differential 08/06/2020 [facility] [address] [place] [address] 73159 [phone] White Blood Count 3.9 10 Low 4.0-10.0 [...] 36.0-66.0 Lymph % 8.4 % Low 24.0-44.0 [place] % 12.0 % High 0.0-5.0 Eos % 3.8 % High 0.0-3.0 Baso % 0.5 % Normal 0.0-1.0 Immature Granulocyte % 0.3 % Normal 0-3.0 Nucleated Red Blood Cell % 0.0 % Normal 0-0 Neutrophils # 3.0 10 Normal 1.5-8.5 Lymph # 0.3 10 Low 1.5-5.0 [place] # 0.5 10 Normal 0.0-0.8 Eos # 0.2 10 Normal 0.0-0.5 Baso # 0.0 10 Normal 0.0-0.2 PT & Aptt 08/06/2020 [facility] Main Lab [address] [place] [address] [phone] Prothrombin Time 16.0 seconds High 12.5-14.3 Inr 1.25 Normal 14 Partial Thromboplastin Time 33.0 seconds Normal 24.2-38.5 Basic Metabolic Profile 08/06/2020 [facility] Main Lab [address] [place] [address] 06996 [phone] Glucose, Fasting 109 mg/dL High 70-100 Blood [...] mg/dL Low 8.8-10.2 Complete Blood Count 08/05/2020 [facility] enter Main Lab [address] [place] [address] 89953 [phone] White Blood Count 3.7 10 Low 4.0-10.0 [...] % Normal 0-0 Laboratory test finding 08/05/2020 [facility] Main Lab [address] [place] [address] 09301 [phone] Immature Platelet Fraction 1.1 % Normal 0.0-1 0.91 16 Comprehensive Metabolic Profil 08/05/2020 [facility] [address] [place] [address] 06480 [phone] Glucose, Fasting 123 mg/dL High 70-100 Blood [...] Screen -Incl Blood Type,Ezra,AB SC 08/05/2020 [facility] [address] [place] [address] 58928 [phone] Blood Type O POSITIVE Normal AB Screen (Indirect James)Vis POSITIVE Normal Laboratory test finding 08/05/2020 [facility] Lab [address] [place] [address] [phone] Antibody Identification Anti-I Normal 18 Laboratory test finding 08/05/2020 [facility] Lab [address] [place] [address] [phone] Packed Cells TRANSFUSED PRODU <SEE NOTE> 19 Laboratory test finding 08/05/2020 [facility] Lab [address] [place] [address] [phone] Pathology Request For Service (SEE NOTE) 20 1 Units are mL/min/1.73 m2 Chronic Kidney Disease Staging per NKF: Stage I & II GFR >=60 Normal to Mildly Decreased Stage III GFR 30-59 Moderately Decreased Stage IV GFR 15-29 Severely Decreased Stage V GFR <15 Very Little GFR Left ESRD GFR <15 on SISAL OPERATOR 2 Troponin I Reference Interva l for Localsensorta LOCI: 99th Percentile= 0.00-0.045 ng/ml Risk Stratification: [...] 4 Troponin I Reference Interva l for Localsensorta LOCI: 99th Percentile= 0.00-0.045 ng/ml Risk Stratification: [...] Little GFR Left ESRD GFR <15 on SISAL OPERATOR 6 TRANSFUSED PRODUCT: PACKED C ELLS COUNT: 1 7 Anti-Jka 8 Units are mL/min/1.73 m2 Chronic Kidney Disease Staging per NKF: Stage I & II GFR >=60 Normal to Mildly Decreased Stage III GFR 30-59 Moderately Decreased Stage IV GFR 15-29 Severely Decreased Stage V GFR <15 Very Little GFR Left ESRD GFR <15 on SISAL OPERATOR 9 Units are mL/min/1.73 m2 Chronic Kidney Disease Staging per NKF: Stage I & II GFR >=60 Normal to Mildly Decreased Stage III GFR 30-59 Moderately Decreased Stage IV GFR 15-29 Severely Decreased Stage V GFR <15 Very Little GFR Left ESRD GFR <15 on SISAL OPERATOR 10 Units are mL/min/1.73 m2 Chronic Kidney Disease Staging per NKF: Stage I & II GFR >=60 Normal to Mildly Decreased Stage III GFR 30-59 Moderately Decreased Stage IV GFR 15-29 Severely Decreased Stage V GFR <15 Very Little GFR Left ESRD GFR <15 on SISAL OPERATOR 11 Anti-Jka 12 TRANSFUSED PRODUCT: PACKED C ELLS COUNT: 1 13 Units are mL/min/1.73 m2 Chronic Kidney Disease Staging per NKF: Stage I & II GFR >=60 Normal to Mildly Decreased Stage III GFR 30-59 Moderately Decreased Stage IV GFR 15-29 Severely Decreased Stage V GFR <15 Very Little GFR Left ESRD GFR <15 on SISAL OPERATOR 14 THERAPUTIC HUMAN INR VALUES INDICATIONS NORMAL [...] Little GFR Left ESRD GFR <15 on SISAL OPERATOR 16 LAB DRAW 17 Units are mL/min/1.73 m2 Chronic Kidney Disease Staging per NKF: Stage I & II GFR >=60 Normal to Mildly Decreased Stage III GFR 30-59 Moderately Decreased Stage IV GFR 15-29 Severely Decreased Stage V GFR <15 Very Little GFR Left ESRD GFR <15 on SISAL OPERATOR 18 Anti-Jka 19 TRANSFUSED PRODUCT: PACKED C [...] 1238 Procedures Date Code Description Status 08/05/2020 18697 Colonoscopy,W/Directed Submucosa l Injections, Any Substance Completed 08/05/2020 40701 Colonoscopy Flexible Proximal To Splenic Flexure W/Biopsy Single/ Completed 08/05/2020 04602 Endoscopy Upper GI Complex Diagn ostic Completed Medical Devices Description No Information Available Encounters Type Date Location Provider Dx Diagnosis Office Visit 06/30/2020 1:00p [facility] Gerhard bowers JR, MD D50.9 Iron deficiency anemia, unspecified Office Visit 06/28/2020 3:15p [facility] Lina maxwell MD N18.4 Chronic [...] to have his diuretics modified by his ribbon hanking machine operator as well during this outpatient procedure. In any case patient understands risks as well as benefits associated with the upper and lower endoscopy would like to proceed with this as scheduled. Functional Status Description No Information Available Mental Status Description No Information Available Referrals Refer to Reason for Referral Status Appt Date Lina Jade MD EVAL AVF Closed 06/28/2020 [address] [facility], [address] [place] [address] [phone]
--- OUTSIDE RECORDS SUMMARY | 2020-08-13 09:53 | CCD | Continuity of Care Document ---
Author Organization Unknown Address Unknown Phone Unavailable Care Team Providers Care Instrumentation And Controls Designer Name Role Phone Lanie Meng M.D. AUTM [phone] Gabriel Ng D.O. AUTM [phone] Problems Description No Active Problems Social History [...] Tablets hs Unknown Calcium 600 + D [id number] Tab lets once a day Unknown Torsemide [...] qd Unknown Vitamin D3 Ultra Potency 1.25mg (67953 Ut) Tablets take 1 tab by mouth qd Unknown Immunizations Description No Information Available Vital Signs Date Vital Result Comment 06/30/2020 1:25pm BP Systolic 108 mmHg BP Diastolic 56 mmHg Heart Rate 76 /min Height 69 inches 5'9" Weight 325.00 lb BMI (Body Mass Index) 48.0 kg/m2 [place] Body Weight 160 lb Weight 147.420 kg BSA (Body Surface Area) 2.54 m2 06/28/2020 3:25pm BP Systolic 139 mmHg BP Diastolic 69 mmHg Height 69 inches 5'9" Weight 300.00 lb Stated BMI (Body Mass Index) 44.3 kg/m2 [place] Body Weight 160 lb Weight 136.080 kg BSA (Body Surface Area) 2.45 m2 Results Test Acquired Date Facility Test Result H/L Range Note CBC With Differential 08/08/2020 [facility] Main Lab [address] [place] [address] 47236 [phone] White Blood Count 4.4 10 Normal 4.0-10.0 [...] 36.0-66.0 Lymph % 8.7 % Low 24.0-44.0 Iron % 10.7 % High 0.0-5.0 Eos % 7.5 % High 0.0-3.0 Baso % 0.5 % Normal 0.0-1.0 Immature Granulocyte % 0.7 % Normal 0-3.0 Nucleated Red Blood Cell % 0.0 % Normal 0-0 Neutrophils # 3.2 10 Normal 1.5-8.5 Lymph # 0.4 10 Low 1.5-5.0 Iron # 0.5 10 Normal 0.0-0.8 Eos # 0.3 10 Normal 0.0-0.5 Baso # 0.0 10 Normal 0.0-0.2 Basic Metabolic Profile 08/08/2020 [facility] Main Lab [address] [place] [address] [phone] Glucose, Fasting 108 mg/dL High 70-100 Blood Urea Nitrogen 119 mg/dL High 7-18 Creatinine For GFR 3.38 mg/dL High 0.70-1.30 Glomerular Filtration Rate 18.7 Low >35 1 Sodium Level 138 mEq/L Normal 136-145 Potassium Serum 3.4 mEq/L Low 3.5-5.1 Chloride Level 101 mEq/L Normal 98-107 Carbon Dioxide Level 29 mEq/L Normal 21-32 Anion Gap 8 mEq/L Normal 8-16 Calcium Level 8.8 mg/dL Normal 8.8-10.2 Laboratory test finding 08/07/2020 [facility] Main Lab [address] [place] [address] [phone] Packed Cells TRANSFUSED PRODU <SEE NOTE> 2 Type & Screen -Incl Blood Type,Ezra,AB SC 08/07/2020 [facility] Main Lab [address] [place] [address] 13475 [phone] Blood Type O POSITIVE Normal AB Screen (Indirect James)Vis POSITIVE Normal Laboratory test finding 08/07/2020 [facility] Main Lab [address] [place] [address] 03535 [phone] Antibody Identification Anti-I Normal 3 CBC With Differential 08/07/2020 [facility] Lab [address] [place] [address] 22953 [phone] White Blood Count 3.8 10 Low 4.0-10.0 [...] 36.0-66.0 Lymph % 9.9 % Low 24.0-44.0 Iron % 12.3 % High 0.0-5.0 Eos % 6.0 % High 0.0-3.0 Baso % 0.3 % Normal 0.0-1.0 Immature Granulocyte % 0.5 % Normal 0-3.0 Nucleated Red Blood Cell % 0.0 % Normal 0-0 Neutrophils # 2.7 10 Normal 1.5-8.5 Lymph # 0.4 10 Low 1.5-5.0 Iron # 0.5 10 Normal 0.0-0.8 Eos # 0.2 10 Normal 0.0-0.5 Baso # 0.0 10 Normal 0.0-0.2 Basic Metabolic Profile 08/07/2020 [facility] Main Lab [address] [place], [place] [phone] Glucose, Fasting 112 mg/dL High 70-100 Blood Urea Nitrogen 130 mg/dL High 7-18 Creatinine For GFR 3.65 mg/dL High 0.70-1.30 Glomerular Filtration Rate 17.1 Low >35 4 Sodium Level 137 mEq/L Normal 136-145 Potassium Serum 3.4 mEq/L Low 3.5-5.1 Chloride Level 99 mEq/L Normal 98-107 Carbon Dioxide Level 29 mEq/L Normal 21-32 Anion Gap 9 mEq/L Normal 8-16 Calcium Level 8.3 mg/dL Low 8.8-10.2 Basic Metabolic Profile 08/06/2020 [facility] Main Lab [address] [place], [place] [phone] Glucose, Fasting 109 mg/dL High 70-100 Blood Urea Nitrogen 143 mg/dL High 7-18 Creatinine For GFR 3.74 mg/dL High 0.70-1.30 Glomerular Filtration Rate 16.6 Low >35 5 Sodium Level 137 mEq/L Normal 136-145 Potassium Serum 2.9 mEq/L Critical low 3.5-5.1 Chloride Level 98 mEq/L Normal 98-107 Carbon Dioxide Level 31 mEq/L Normal 21-32 Anion Gap 8 mEq/L Normal 8-16 Calcium Level 8.5 mg/dL Low 8.8-10.2 PT & Aptt 08/06/2020 [facility] Main Lab [address] [place] [address] 74590 [phone] Prothrombin Time 16.0 seconds High 12.5-14.3 Inr 1.25 Normal 6 Partial Thromboplastin Time 33.0 seconds Normal 24.2-38.5 CBC With Differential 08/06/2020 [facility] Main Lab [address] [place] [address] 98930 [phone] White Blood Count 3.9 10 Low 4.0-10.0 [...] 36.0-66.0 Lymph % 8.4 % Low 24.0-44.0 Iron % 12.0 % High 0.0-5.0 Eos % 3.8 % High 0.0-3.0 Baso % 0.5 % Normal 0.0-1.0 Immature Granulocyte % 0.3 % Normal 0-3.0 Nucleated Red Blood Cell % 0.0 % Normal 0-0 Neutrophils # 3.0 10 Normal 1.5-8.5 Lymph # 0.3 10 Low 1.5-5.0 Iron # 0.5 10 Normal 0.0-0.8 Eos # 0.2 10 Normal 0.0-0.5 Baso # 0.0 10 Normal 0.0-0.2 Renal Profile 08/06/2020 [facility] Main Lab [address] [place] [address] 38356 [phone] Glucose, Fasting 157 mg/dL High 70-100 Blood Urea Nitrogen 135 mg/dL High 7-18 Creatinine For GFR 3.93 mg/dL High 0.70-1.30 Glomerular Filtration Rate 15.7 Low >35 7 Sodium Level 136 mEq/L Normal 136-145 Potassium Serum 3.1 mEq/L Low 3.5-5.1 Chloride Level 96 mEq/L Low 98-107 Carbon Dioxide Level 33 mEq/L High 21-32 Anion Gap 7 mEq/L Low 8-16 Calcium Level 8.7 mg/dL Low 8.8-10.2 Phosphorus Level 4.6 mg/dL Normal 2.5-4.9 Albumin 2.8 GM/DL Low 3.2-5.2 Complete Blood Count 08/05/2020 [facility] Main Lab [address] [place] [address] [phone] White Blood Count 3.7 10 Low 4.0-10.0 [...] % Normal 0-0 Laboratory test finding 08/05/2020 [facility] Main Lab [address] [place] [address] [phone] Immature Platelet Fraction 1.1 % Normal 0.0-1 0.91 8 Comprehensive Metabolic Profil 08/05/2020 [facility] Main Lab [address] [place] [address] [phone] Glucose, Fasting 123 mg/dL High 70-100 Blood Urea Nitrogen 139 mg/dL High 7-18 Creatinine For GFR 3.97 mg/dL High 0.70-1.30 Glomerular Filtration Rate 15.5 Low >35 9 Sodium Level 138 mEq/L [...] & Screen -Incl Blood Type,Ezra,AB SC 08/05/2020 [facility] Main Lab [address] [place] [address] 54807 [phone] Blood Type O POSITIVE Normal AB Screen (Indirect James)Vis POSITIVE Normal Laboratory test finding 08/05/2020 [facility] Main Lab [address] [place] [address] 91190 [phone] Antibody Identification Anti-I Normal 10 Laboratory test finding 08/05/2020 [facility] Main Lab [address] [place] [address] 87594 [phone] Packed Cells TRANSFUSED PRODU <SEE NOTE> 11 Laboratory test finding 08/05/2020 [facility] Main Lab [address] [place] [address] 50693 [phone] Pathology Request For Service (SEE NOTE) 12 1 Units are mL/min/1.73 m2 Chronic Kidney Disease Staging per NKF: Stage I & II GFR >=60 Normal to Mildly Decreased Stage III GFR 30-59 Moderately Decreased Stage IV GFR 15-29 Severely Decreased Stage V GFR <15 Very Little GFR Left ESRD GFR <15 on LIVE SOURCE OPERATOR 2 TRANSFUSED PRODUCT: PACKED C ELLS COUNT: 1 3 Anti-Jka 4 Units are mL/min/1.73 m2 Chronic Kidney Disease Staging per NKF: Stage I & II GFR >=60 Normal to Mildly Decreased Stage III GFR 30-59 Moderately Decreased Stage IV GFR 15-29 Severely Decreased Stage V GFR <15 Very Little GFR Left ESRD GFR <15 on LIVE SOURCE OPERATOR 5 Units are mL/min/1.73 m2 Chronic Kidney Disease Staging per NKF: Stage I & II GFR >=60 Normal to Mildly Decreased Stage III GFR 30-59 Moderately Decreased Stage IV GFR 15-29 Severely Decreased Stage V GFR <15 Very Little GFR Left ESRD GFR <15 on LIVE SOURCE OPERATOR 6 THERAPUTIC HUMAN INR VALUES INDICATIONS NORMAL RANGES PROPHYLAXIS/TREATMENT OF: VENOUS THROMBOSIS 2.0-3.0 PULMONARY EMBOLISM 2.0-3.0 PREVENTION OF SYSTEMIC EMBOLISM FROM: TISSUE HEART VALVES 2.0-3.0 ACUTE MYOCARDIAL INFARCTION 2.0-3.0 VALVULAR HEART DISEASE 2.0-3.0 ATRIAL FIBRILLATION 2.0-3.0 MECHANICAL VALVES(HIGH RISK) 2.5-3.5 RECURRENT MYOCARDIAL INFARCTION 2.5-3.5 7 Units are mL/min/1.73 m2 Chronic Kidney Disease Staging per NKF: Stage I & II GFR >=60 Normal to Mildly Decreased Stage III GFR 30-59 Moderately Decreased Stage IV GFR 15-29 Severely Decreased Stage V GFR <15 Very Little GFR Left ESRD GFR <15 on LIVE SOURCE OPERATOR 8 LAB DRAW 9 Units are mL/min/1.73 m2 Chronic Kidney Disease Staging per NKF: Stage I & II GFR >=60 Normal to Mildly Decreased Stage III GFR 30-59 Moderately Decreased Stage IV GFR 15-29 Severely Decreased Stage V GFR <15 Very Little GFR Left ESRD GFR <15 on LIVE SOURCE OPERATOR 10 Anti-Jka 11 TRANSFUSED PRODUCT: PACKED C ELLS COUNT: 2 12 FINAL DIAGNOSIS Colon, 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 -4/TR 08/06/2020 - 1224 CLINICAL DIAGNOSIS Anemia 08/05/2020 - 1509 GROSS DIAGNOSIS Received in formalin labeled "biopsy at 65 cm" consists of two fragments of leon tissue measuring 0.5 x 0.3 x 0.2 cm in aggregate. All in one. -SV 08/05/2020 - 1509 Signed RICARDA CHRISTINA MD 08/06/2020 1238 Procedures Description No Information Available Medical Devices Description No Information Available Encounters Type Date Location Provider Dx Diagnosis Office Visit 06/30/2020 1:00p [facility] Gerhard bowers JR, MD D50.9 Iron deficiency anemia, unspecified Office Visit 06/28/2020 3:15p [facility] Lina maxwell MD N18.4 Chronic kidney disease, stage 4 (severe) Assessments Date Code Description Provider 06/30/2020 D50.9 Iron deficiency anemia, unspecif ied Gerhard Aceves JR, MD 06/28/2020 N18.4 Chronic kidney disease, stage 4 (severe) Lina Jade MD Plan of Treatment Future Appointment(s):* 08/19/2020 1:00 pm - KRISTY Meyer at [facility] * 08/13/2020 10:15 am - Lina Jade MD at [facility] 06/30/2020 - Gerhard Aceves JR, MD* D50.9 [...] to have his diuretics modified by his cardiology nurse practitioner as well during this outpatient procedure. In any case patient understands risks as well as benefits associated with the upper and lower endoscopy would like to proceed with this as scheduled. Functional Status Description No Information Available Mental Status Description No Information Available Referrals Refer to Reason for Referral Status Appt Date Lina Jade MD EVAL AVF Closed 06/28/2020 [address] [facility], [address] [place] [address] [phone]
--- OUTSIDE RECORDS SUMMARY | 2020-08-13 09:53 | CCD | Continuity of Care Document ---
Author Organization Unknown Address Unknown Phone Unavailable Care Team Providers Care Fitter Up Name Role Phone Lanie Meng M.D. AUTM Gabriel Ng D.O. AUTM [phone] Problems Description No Active Problems Social History [...] Tablets hs Unknown Calcium 600 + D [id number] Tab lets once a day Unknown Torsemide [...] qd Unknown Vitamin D3 Ultra Potency 1.25mg (68585 Ut) Tablets take 1 tab by mouth qd Unknown Immunizations Description No Information Available Vital Signs Date Vital Result Comment 06/30/2020 1:25pm BP Systolic 108 mmHg BP Diastolic 56 mmHg Heart Rate 76 /min Height 69 inches 5'9" Weight 325.00 lb BMI (Body Mass Index) 48.0 kg/m2 [place] Body Weight 160 lb Weight 147.420 kg BSA (Body Surface Area) 2.54 m2 06/28/2020 3:25pm BP Systolic 139 mmHg BP Diastolic 69 mmHg Height 69 inches 5'9" Weight 300.00 lb Stated BMI (Body Mass Index) 44.3 kg/m2 [place] Body Weight 160 lb Weight 136.080 kg BSA (Body Surface Area) 2.45 m2 Results Test Acquired Date Facility Test Result H/L Range Note Laboratory test finding 08/07/2020 [facility] Main Lab [address] [place] [address] [id number] [phone] Packed Cells TRANSFUSED PRODU <SEE NOTE> 1 Type & Screen -Incl Blood Type,Ezra,AB SC 08/07/2020 [facility] Main Lab [address] [place] [address] [phone] Blood Type O POSITIVE Normal AB Screen (Indirect James)Vis POSITIVE Normal Laboratory test finding 08/07/2020 [facility] Main Lab [address] [place] [address] [phone] Antibody Identification Anti-I Normal 2 CBC With Differential 08/07/2020 [facility] Main Lab [address] [place] [address] [phone] White Blood Count 3.8 10 Low 4.0-10.0 [...] 36.0-66.0 Lymph % 9.9 % Low 24.0-44.0 [place] % 12.3 % High 0.0-5.0 Eos % 6.0 % High 0.0-3.0 Baso % 0.3 % Normal 0.0-1.0 Immature Granulocyte % 0.5 % Normal 0-3.0 Nucleated Red Blood Cell % 0.0 % Normal 0-0 Neutrophils # 2.7 10 Normal 1.5-8.5 Lymph # 0.4 10 Low 1.5-5.0 Jun[place] # 0.5 10 Normal 0.0-0.8 Eos # 0.2 10 Normal 0.0-0.5 Baso # 0.0 10 Normal 0.0-0.2 Basic Metabolic Profile 08/07/2020 [facility] Main Lab [address] [place], [place] [id number] [phone] Glucose, Fasting 112 mg/dL High 70-100 Blood Urea Nitrogen 130 mg/dL High 7-18 Creatinine For GFR 3.65 mg/dL High 0.70-1.30 Glomerular Filtration Rate 17.1 Low >35 3 Sodium Level 137 mEq/L Normal 136-145 Potassium Serum 3.4 mEq/L Low 3.5-5.1 Chloride Level 99 mEq/L Normal 98-107 Carbon Dioxide Level 29 mEq/L Normal 21-32 Anion Gap 9 mEq/L Normal 8-16 Calcium Level 8.3 mg/dL Low 8.8-10.2 Renal Profile 08/06/2020 [facility] Main Lab [address] [place], [place] [id number] [phone] Glucose, Fasting 157 mg/dL High 70-100 Blood Urea Nitrogen 135 mg/dL High 7-18 Creatinine For GFR 3.93 mg/dL High 0.70-1.30 Glomerular Filtration Rate 15.7 Low >35 4 Sodium Level 136 mEq/L Normal 136-145 Potassium Serum 3.1 mEq/L Low 3.5-5.1 Chloride Level 96 mEq/L Low 98-107 Carbon Dioxide Level 33 mEq/L High 21-32 Anion Gap 7 mEq/L Low 8-16 Calcium Level 8.7 mg/dL Low 8.8-10.2 Phosphorus Level 4.6 mg/dL Normal 2.5-4.9 Albumin 2.8 GM/DL Low 3.2-5.2 CBC With Differential 08/06/2020 [facility] Main Lab [address] [place] [address] [phone] White Blood Count 3.9 10 Low 4.0-10.0 [...] 36.0-66.0 Lymph % 8.4 % Low 24.0-44.0 [place] % 12.0 % High 0.0-5.0 Eos % 3.8 % High 0.0-3.0 Baso % 0.5 % Normal 0.0-1.0 Immature Granulocyte % 0.3 % Normal 0-3.0 Nucleated Red Blood Cell % 0.0 % Normal 0-0 Neutrophils # 3.0 10 Normal 1.5-8.5 Lymph # 0.3 10 Low 1.5-5.0 Jun[place] # 0.5 10 Normal 0.0-0.8 Eos # 0.2 10 Normal 0.0-0.5 Baso # 0.0 10 Normal 0.0-0.2 PT & Aptt 08/06/2020 [facility] Main Lab [address] [place] [address] [phone] Prothrombin Time 16.0 seconds High 12.5-14.3 Inr 1.25 Normal 5 Partial Thromboplastin Time 33.0 seconds Normal 24.2-38.5 Basic Metabolic Profile 08/06/2020 [facility] Main Lab [address] [place] [address] [phone] Glucose, Fasting 109 mg/dL High 70-100 Blood Urea Nitrogen 143 mg/dL High 7-18 Creatinine For GFR 3.74 mg/dL High 0.70-1.30 Glomerular Filtration Rate 16.6 Low >35 6 Sodium Level 137 mEq/L Normal 136-145 Potassium Serum 2.9 mEq/L Critical low 3.5-5.1 Chloride Level 98 mEq/L Normal 98-107 Carbon Dioxide Level 31 mEq/L Normal 21-32 Anion Gap 8 mEq/L Normal 8-16 Calcium Level 8.5 mg/dL Low 8.8-10.2 Complete Blood Count 08/05/2020 [facility] Main Lab [address] [place] [address] [phone] White Blood Count 3.7 10 Low 4.0-10.0 [...] % Normal 0-0 Laboratory test finding 08/05/2020 [facility] Main Lab [address] [place] [address] [phone] Immature Platelet Fraction 1.1 % Normal 0.0-1 0.91 7 Comprehensive Metabolic Profil 08/05/2020 [facility] Main Lab [address] [place] [address] [phone] Glucose, Fasting 123 mg/dL High 70-100 Blood Urea Nitrogen 139 mg/dL High 7-18 Creatinine For GFR 3.97 mg/dL High 0.70-1.30 Glomerular Filtration Rate 15.5 Low >35 8 Sodium Level 138 mEq/L Normal 136-145 Potassium [...] & Screen -Incl Blood Type,Ezra,AB SC 08/05/2020 [facility] Main Lab [address] [place] [address] [phone] Blood Type O POSITIVE Normal AB Screen (Indirect James)Vis POSITIVE Normal Laboratory test finding 08/05/2020 [facility] Main Lab [address] [place] [address] [phone] Antibody Identification Anti-I Normal 9 Laboratory test finding 08/05/2020 [facility] Main Lab [address] [place] [address] [phone] Packed Cells TRANSFUSED PRODU <SEE NOTE> 10 Laboratory test finding 08/05/2020 [facility] Main Lab [address] [place] [address] [phone] Pathology Request For Service (SEE NOTE) 11 1 TRANSFUSED PRODUCT: PACKED C ELLS COUNT: 1 2 Anti-Jka 3 Units are mL/min/1.73 m2 Chronic Kidney Disease Staging per NKF: Stage I & II GFR >=60 Normal to Mildly Decreased Stage III GFR 30-59 Moderately Decreased Stage IV GFR 15-29 Severely Decreased Stage V GFR <15 Very Little GFR Left ESRD GFR <15 on SCIENCE EDUCATION PROFESSOR 4 Units are mL/min/1.73 m2 Chronic Kidney Disease Staging per NKF: Stage I & II GFR >=60 Normal to Mildly Decreased Stage III GFR 30-59 Moderately Decreased Stage IV GFR 15-29 Severely Decreased Stage V GFR <15 Very Little GFR Left ESRD GFR <15 on SCIENCE EDUCATION PROFESSOR 5 THERAPUTIC HUMAN INR VALUES INDICATIONS NORMAL RANGES PROPHYLAXIS/TREATMENT OF: VENOUS THROMBOSIS 2.0-3.0 PULMONARY EMBOLISM 2.0-3.0 PREVENTION OF SYSTEMIC EMBOLISM FROM: TISSUE HEART VALVES 2.0-3.0 ACUTE MYOCARDIAL INFARCTION 2.0-3.0 VALVULAR HEART DISEASE 2.0-3.0 ATRIAL FIBRILLATION 2.0-3.0 MECHANICAL VALVES(HIGH RISK) 2.5-3.5 RECURRENT MYOCARDIAL INFARCTION 2.5-3.5 6 Units are mL/min/1.73 m2 Chronic Kidney Disease Staging per NKF: Stage I & II GFR >=60 Normal to Mildly Decreased Stage III GFR 30-59 Moderately Decreased Stage IV GFR 15-29 Severely Decreased Stage V GFR <15 Very Little GFR Left ESRD GFR <15 on SCIENCE EDUCATION PROFESSOR 7 LAB DRAW 8 Units are mL/min/1.73 m2 Chronic Kidney Disease Staging per NKF: Stage I & II GFR >=60 Normal to Mildly Decreased Stage III GFR 30-59 Moderately Decreased Stage IV GFR 15-29 Severely Decreased Stage V GFR <15 Very Little GFR Left ESRD GFR <15 on SCIENCE EDUCATION PROFESSOR 9 Anti-Jka 10 TRANSFUSED PRODUCT: PACKED C ELLS COUNT: 2 11 FINAL DIAGNOSIS Colon, 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 -4/TR 08/06/2020 - 1224 CLINICAL DIAGNOSIS Anemia 08/05/2020 - 1509 GROSS DIAGNOSIS Received in formalin labeled "biopsy at 65 cm" consists of two fragments of leon tissue measuring 0.5 x 0.3 x 0.2 cm in aggregate. All in one. -SV 08/05/2020 - 150 Signed RICARDA CHRISTINA MD 08/06/2020 1238 Procedures Description No Information Available Medical Devices Description No Information Available Encounters Type Date Location Provider Dx Diagnosis Office Visit 06/30/2020 1:00p [facility] Gerhard bowers JR, MD D50.9 Iron deficiency anemia, unspecified Office Visit 06/28/2020 3:15p [facility] Lina maxwell MD N18.4 Chronic kidney disease, stage 4 (severe) Assessments Date Code Description Provider 06/30/2020 D50.9 Iron deficiency anemia, unspecif ied Gerhard Aceves JR, MD 06/28/2020 N18.4 Chronic kidney disease, stage 4 (severe) Lina Jade MD Plan of Treatment Future Appointment(s):* 08/19/2020 1:00 pm - KRISTY Meyer at [facility] * 08/13/2020 10:15 am - Lina Jade MD at [facility] 06/30/2020 - Gerhard Aceves JR, MD* [...] to have his diuretics modified by his hog grader as well during this outpatient procedure. In any case patient understands risks as well as benefits associated with the upper and lower endoscopy would like to proceed with this as scheduled. Functional Status Description No Information Available Mental Status Description No Information Available Referrals Refer to Reason for Referral Status Appt Date Lina Jade MD EVAL [facility] Closed 06/28/2020 6 [facility], [address] [place] [address] [phone]
--- OUTSIDE RECORDS SUMMARY | 2020-08-13 09:53 | CCD | Continuity of Care Document ---
Author Author Jeffrey ACEVES MD Organization Unknown Address [address] [facility] [address] [place] [address] Phone [phone] Care Team Providers Care Psych Arnp Name Role Phone Lanie Meng M.D. AUTM [phone] Gabriel Ng D.O. AUTM [phone] Problems Description No Active Problems Social History [...] Tablets hs Unknown Calcium 600 + D [id number] Tab lets once a day Unknown Torsemide [...] qd Unknown Vitamin D3 Ultra Potency 1.25mg (49243 Ut) Tablets take 1 tab by mouth qd Unknown Immunizations Description No Information Available Vital Signs Date Vital Result Comment 06/30/2020 1:25pm BP Systolic 108 mmHg BP Diastolic 56 mmHg Heart Rate 76 /min Height 69 inches 5'9" Weight 325.00 lb BMI (Body Mass Index) 48.0 kg/m2 [place] Body Weight 160 lb Weight 147.420 kg BSA (Body Surface Area) 2.54 m2 06/28/2020 3:25pm BP Systolic 139 mmHg BP Diastolic 69 mmHg Height 69 inches 5'9" Weight 300.00 lb Stated BMI (Body Mass Index) 44.3 kg/m2 [place] Body Weight 160 lb Weight 136.080 kg BSA (Body Surface Area) 2.45 m2 Results Test Acquired Date Facility Test Result H/L Range Note Laboratory test finding 08/07/2020 [facility] Main Lab [address] [place] [address] [phone] Packed Cells TRANSFUSED PRODU <SEE NOTE> 1 Type & Screen -Incl Blood Type,Ezra,AB SC 08/07/2020 [facility] Main Lab [address] [place] [address] [phone] Blood Type O POSITIVE Normal AB Screen (Indirect James)Vis POSITIVE Normal Laboratory test finding 08/07/2020 [facility] Main Lab [address] [place] [address] [phone] Antibody Identification Anti-I Normal 2 CBC With Differential 08/07/2020 [facility] Main Lab [address] [place] [address] [phone] White Blood Count 3.8 10 Low 4.0-10.0 [...] 36.0-66.0 Lymph % 9.9 % Low 24.0-44.0 [place] % 12.3 % High 0.0-5.0 Eos % 6.0 % High 0.0-3.0 Baso % 0.3 % Normal 0.0-1.0 Immature Granulocyte % 0.5 % Normal 0-3.0 Nucleated Red Blood Cell % 0.0 % Normal 0-0 Neutrophils # 2.7 10 Normal 1.5-8.5 Lymph # 0.4 10 Low 1.5-5.0 [place] # 0.5 10 Normal 0.0-0.8 Eos # 0.2 10 Normal 0.0-0.5 Baso # 0.0 10 Normal 0.0-0.2 Basic Metabolic Profile 08/07/2020 [facility] Main Lab [address] [place], [place] [id number] [phone] Glucose, Fasting 112 mg/dL High 70-100 Blood [...] 8.3 mg/dL Low 8.8-10.2 Renal Profile 08/06/2020 [facility] Main Lab [address] [place], [place] 1989252 [phone] Glucose, Fasting 157 mg/dL High 70-100 Blood [...] GM/DL Low 3.2-5.2 CBC With Differential 08/06/2020 [facility] Main Lab [address] [place] [address] [phone] White Blood Count 3.9 10 Low 4.0-10.0 [...] 36.0-66.0 Lymph % 8.4 % Low 24.0-44.0 [place] % 12.0 % High 0.0-5.0 Eos % 3.8 % High 0.0-3.0 Baso % 0.5 % Normal 0.0-1.0 Immature Granulocyte % 0.3 % Normal 0-3.0 Nucleated Red Blood Cell % 0.0 % Normal 0-0 Neutrophils # 3.0 10 Normal 1.5-8.5 Lymph # 0.3 10 Low 1.5-5.0 [place] # 0.5 10 Normal 0.0-0.8 Eos # 0.2 10 Normal 0.0-0.5 Baso # 0.0 10 Normal 0.0-0.2 PT & Aptt 08/06/2020 [facility] nter Main Lab [address] [place] [address] [phone] Prothrombin Time 16.0 seconds High 12.5-14.3 Inr 1.25 Normal 5 Partial Thromboplastin Time 33.0 seconds Normal 24.2-38.5 Basic Metabolic Profile 08/06/2020 [facility] Main Lab [address] [place] [address] [phone] Glucose, Fasting 109 mg/dL High 70-100 Blood [...] mg/dL Low 8.8-10.2 Complete Blood Count 08/05/2020 [facility] Main Lab [address] [place] [address] [phone] White Blood Count 3.7 10 Low 4.0-10.0 [...] % Normal 0-0 Laboratory test finding 08/05/2020 [facility] Main Lab [address] [place] [address] [phone] Immature Platelet Fraction 1.1 % Normal 0.0-1 0.91 7 Comprehensive Metabolic Profil 08/05/2020 [facility] Main Lab [address] [place] [address] [phone] Glucose, Fasting 123 mg/dL High 70-100 Blood [...] & Screen -Incl Blood Type,Ezra,AB SC 08/05/2020 [facility] Main Lab [address] [place] [address] [phone] Blood Type O POSITIVE Normal AB Screen (Indirect James)Vis POSITIVE Normal Laboratory test finding 08/05/2020 [facility] Main Lab [address] [place] [address] [phone] Antibody Identification Anti-I Normal 9 Laboratory test finding 08/05/2020 [facility] Main Lab [address] [place] [address] [phone] Packed Cells TRANSFUSED PRODU <SEE NOTE> 10 Laboratory test finding 08/05/2020 [facility] Main Lab [address] [place] [address] [phone] Pathology Request For Service (SEE NOTE) 11 1 TRANSFUSED PRODUCT: PACKED C ELLS COUNT: 1 2 Anti-Jka 3 Units are mL/min/1.73 m2 Chronic Kidney Disease Staging per NKF: Stage I & II GFR >=60 Normal to Mildly Decreased Stage III GFR 30-59 Moderately Decreased Stage IV GFR 15-29 Severely Decreased Stage V GFR <15 Very Little GFR Left ESRD GFR <15 on FIRE CHIEF DEPUTY 4 Units are mL/min/1.73 m2 Chronic Kidney Disease Staging per NKF: Stage I & II GFR >=60 Normal to Mildly Decreased Stage III GFR 30-59 Moderately Decreased Stage IV GFR 15-29 Severely Decreased Stage V GFR <15 Very Little GFR Left ESRD GFR <15 on FIRE CHIEF DEPUTY 5 THERAPUTIC HUMAN INR VALUES INDICATIONS NORMAL [...] Little GFR Left ESRD GFR <15 on FIRE CHIEF DEPUTY 7 LAB DRAW 8 Units are mL/min/1.73 m2 Chronic Kidney Disease Staging per NKF: Stage I & II GFR >=60 Normal to Mildly Decreased Stage III GFR 30-59 Moderately Decreased Stage IV GFR 15-29 Severely Decreased Stage V GFR <15 Very Little GFR Left ESRD GFR <15 on FIRE CHIEF DEPUTY 9 Anti-Jka 10 TRANSFUSED PRODUCT: PACKED C [...] Provider Dx Diagnosis Office Visit 06/30/2020 1:00p [facility] Gerhard bowers JR, MD D50.9 Iron deficiency anemia, unspecified Office Visit 06/28/2020 3:15p [facility] Lina maxwell MD N18.4 Chronic kidney disease, stage 4 (severe) Assessments Date Code Description Provider 06/30/2020 D50.9 Iron deficiency anemia, unspecif ied Gerhard Aceves JR, MD 06/28/2020 N18.4 Chronic kidney disease, stage 4 (severe) Lina Jade MD Plan of Treatment Future Appointment(s):* 08/19/2020 1:00 pm - KRISTY Meyer at [facility] * 08/13/2020 10:15 am - Lina Jade MD at [facility] 06/30/2020 - Gerhard Aceves JR, MD* [...] to have his diuretics modified by his datacap developer as well during this outpatient procedure. In any case patient understands risks as well as benefits associated with the upper and lower endoscopy would like to proceed with this as scheduled. Functional Status Description No Information Available Mental Status Description No Information Available Referrals Refer to Reason for Referral Status Appt Date Lina Jade MD EVAL [facility] Closed 06/28/2020 6 [facility], [address] [place] [address] [phone]
--- OUTSIDE RECORDS SUMMARY | 2020-08-13 09:53 | CCD | Continuity of Care Document ---
Author Organization Unknown Address Unknown Phone Unavailable Care Team Providers Care Zipper Trimmer Name Role Phone Lanie Meng M.D. AUTM Gabriel Ng D.O. AUTM [phone] Problems Description No Active Problems Social History [...] Tablets hs Unknown Calcium 600 + D [id number] Tab lets once a day Unknown Torsemide [...] qd Unknown Vitamin D3 Ultra Potency 1.25mg (29081 Ut) Tablets take 1 tab by mouth qd Unknown Immunizations Description No Information Available Vital Signs Date Vital Result Comment 06/30/2020 1:25pm BP Systolic 108 mmHg BP Diastolic 56 mmHg Heart Rate 76 /min Height 69 inches 5'9" Weight 325.00 lb BMI (Body Mass Index) 48.0 kg/m2 [place] Body Weight 160 lb Weight 147.420 kg BSA (Body Surface Area) 2.54 m2 06/28/2020 3:25pm BP Systolic 139 mmHg BP Diastolic 69 mmHg Height 69 inches 5'9" Weight 300.00 lb Stated BMI (Body Mass Index) 44.3 kg/m2 [place] Body Weight 160 lb Weight 136.080 kg BSA (Body Surface Area) 2.45 m2 Results Test Acquired Date Facility Test Result H/L Range Note CBC With Differential 08/09/2020 [facility] Main Lab [address] [place] [address]01 [phone] White Blood Count 4.5 10 Normal 4.0-10.0 [...] 36.0-66.0 Lymph % 8.1 % Low 24.0-44.0 Mchenry % 9.6 % High 0.0-5.0 Eos % 7.6 % High 0.0-3.0 Baso % 0.2 % Normal 0.0-1.0 Immature Granulocyte % 0.9 % Normal 0-3.0 Nucleated Red Blood Cell % 0.0 % Normal 0-0 Neutrophils # 3.3 10 Normal 1.5-8.5 Lymph # 0.4 10 Low 1.5-5.0 Mchenry # 0.4 10 Normal 0.0-0.8 Eos # 0.3 10 Normal 0.0-0.5 Baso # 0.0 10 Normal 0.0-0.2 Basic Metabolic Profile 08/09/2020 [facility] Main Lab [address] [place], [place] [phone] Glucose, Fasting 112 mg/dL High 70-100 Blood Urea Nitrogen 108 mg/dL High 7-18 Creatinine For GFR 3.01 mg/dL High 0.70-1.30 Glomerular Filtration Rate 21.4 Low >35 1 Sodium Level 141 mEq/L Normal 136-145 Potassium Serum 3.9 mEq/L Normal 3.5-5.1 Chloride Level 105 mEq/L Normal 98-107 Carbon Dioxide Level 28 mEq/L Normal 21-32 Anion Gap 8 mEq/L Normal 8-16 Calcium Level 8.5 mg/dL Low 8.8-10.2 CBC With Differential 08/08/2020 [facility] Main Lab [address] [place] [address] [phone] White Blood Count 4.4 10 Normal 4.0-10.0 [...] 36.0-66.0 Lymph % 8.7 % Low 24.0-44.0 Mchenry % 10.7 % High 0.0-5.0 Eos % 7.5 % High 0.0-3.0 Baso % 0.5 % Normal 0.0-1.0 Immature Granulocyte % 0.7 % Normal 0-3.0 Nucleated Red Blood Cell % 0.0 % Normal 0-0 Neutrophils # 3.2 10 Normal 1.5-8.5 Lymph # 0.4 10 Low 1.5-5.0 Mchenry # 0.5 10 Normal 0.0-0.8 Eos # 0.3 10 Normal 0.0-0.5 Baso # 0.0 10 Normal 0.0-0.2 Basic Metabolic Profile 08/08/2020 [facility] Main Lab [address] [place] [address] [phone] Glucose, Fasting 108 mg/dL High 70-100 Blood Urea Nitrogen 119 mg/dL High 7-18 Creatinine For GFR 3.38 mg/dL High 0.70-1.30 Glomerular Filtration Rate 18.7 Low >35 2 Sodium Level 138 mEq/L Normal 136-145 Potassium Serum 3.4 mEq/L Low 3.5-5.1 Chloride Level 101 mEq/L Normal 98-107 Carbon Dioxide Level 29 mEq/L Normal 21-32 Anion Gap 8 mEq/L Normal 8-16 Calcium Level 8.8 mg/dL Normal 8.8-10.2 Laboratory test finding 08/07/2020 [facility] Main Lab [address] [place] [address] [phone] Packed Cells TRANSFUSED PRODU <SEE NOTE> 3 Type & Screen -Incl Blood Type,Ezra,AB SC 08/07/2020 [facility] Main Lab [address] [place] [address] [phone] Blood Type O POSITIVE Normal AB Screen (Indirect James)Vis POSITIVE Normal Laboratory test finding 08/07/2020 [facility] Main Lab [address] [place] [address] [phone] Antibody Identification Anti-I Normal 4 CBC With Differential 08/07/2020 [facility] Main Lab [address] [place] [address] 17102 [phone] White Blood Count 3.8 10 Low 4.0-10.0 [...] 36.0-66.0 Lymph % 9.9 % Low 24.0-44.0 Mchenry % 12.3 % High 0.0-5.0 Eos % 6.0 % High 0.0-3.0 Baso % 0.3 % Normal 0.0-1.0 Immature Granulocyte % 0.5 % Normal 0-3.0 Nucleated Red Blood Cell % 0.0 % Normal 0-0 Neutrophils # 2.7 10 Normal 1.5-8.5 Lymph # 0.4 10 Low 1.5-5.0 Mchenry # 0.5 10 Normal 0.0-0.8 Eos # 0.2 10 Normal 0.0-0.5 Baso # 0.0 10 Normal 0.0-0.2 Basic Metabolic Profile 08/07/2020 [facility] Main Lab [address] [place], [place] [id number] [phone] Glucose, Fasting 112 mg/dL High 70-100 Blood Urea Nitrogen 130 mg/dL High 7-18 Creatinine For GFR 3.65 mg/dL High 0.70-1.30 Glomerular Filtration Rate 17.1 Low >35 5 Sodium Level 137 mEq/L Normal 136-145 Potassium Serum 3.4 mEq/L Low 3.5-5.1 Chloride Level 99 mEq/L Normal 98-107 Carbon Dioxide Level 29 mEq/L Normal 21-32 Anion Gap 9 mEq/L Normal 8-16 Calcium Level 8.3 mg/dL Low 8.8-10.2 Basic Metabolic Profile 08/06/2020 [facility] Main Lab [address] [place], [place] [phone] Glucose, Fasting 109 mg/dL High 70-100 Blood [...] mg/dL Low 8.8-10.2 PT & Aptt 08/06/2020 [facility] Main Lab [address] [place] [address] [phone] Prothrombin Time 16.0 seconds High 12.5-14.3 Inr 1.25 Normal 7 Partial Thromboplastin Time 33.0 seconds Normal 24.2-38.5 CBC With Differential 08/06/2020 [facility] Main Lab [address] [place] [address] 14657 [phone] White Blood Count 3.9 10 Low 4.0-10.0 [...] 36.0-66.0 Lymph % 8.4 % Low 24.0-44.0 Mchenry % 12.0 % High 0.0-5.0 Eos % 3.8 % High 0.0-3.0 Baso % 0.5 % Normal 0.0-1.0 Immature Granulocyte % 0.3 % Normal 0-3.0 Nucleated Red Blood Cell % 0.0 % Normal 0-0 Neutrophils # 3.0 10 Normal 1.5-8.5 Lymph # 0.3 10 Low 1.5-5.0 Mchenry # 0.5 10 Normal 0.0-0.8 Eos # 0.2 10 Normal 0.0-0.5 Baso # 0.0 10 Normal 0.0-0.2 Renal Profile 08/06/2020 [facility] Main Lab [address] [place] [address] 52492 [phone] Glucose, Fasting 157 mg/dL High 70-100 Blood Urea Nitrogen 135 mg/dL High 7-18 Creatinine For GFR 3.93 mg/dL High 0.70-1.30 Glomerular Filtration Rate 15.7 Low >35 8 Sodium Level 136 mEq/L Normal 136-145 Potassium Serum 3.1 mEq/L Low 3.5-5.1 Chloride Level 96 mEq/L Low 98-107 Carbon Dioxide Level 33 mEq/L High 21-32 Anion Gap 7 mEq/L Low 8-16 Calcium Level 8.7 mg/dL Low 8.8-10.2 Phosphorus Level 4.6 mg/dL Normal 2.5-4.9 Albumin 2.8 GM/DL Low 3.2-5.2 Complete Blood Count 08/05/2020 [facility] Main Lab [address] [place] [address] [phone] White Blood Count 3.7 10 Low 4.0-10.0 [...] % Normal 0-0 Laboratory test finding 08/05/2020 [facility] Main Lab [address] [place] [address] [phone] Immature Platelet Fraction 1.1 % Normal 0.0-1 0.91 9 Comprehensive Metabolic Profil 08/05/2020 [facility] Main Lab [address] [place] [address] [phone] Glucose, Fasting 123 mg/dL High 70-100 Blood Urea Nitrogen 139 mg/dL High 7-18 Creatinine For GFR 3.97 mg/dL High 0.70-1.30 Glomerular Filtration Rate 15.5 Low >35 1 0 Sodium Level 138 mEq/L Normal 136-145 Potassium [...] & Screen -Incl Blood Type,Ezra,AB SC 08/05/2020 [facility] Main Lab [address] [place] [address] [phone] Blood Type O POSITIVE Normal AB Screen (Indirect James)Vis POSITIVE Normal Laboratory test finding 08/05/2020 [facility] Main Lab [address] [place] [address] [phone] Antibody Identification Anti-I Normal 11 Laboratory test finding 08/05/2020 [facility] Main Lab [address] [place] [address] 53671 [phone] Packed Cells TRANSFUSED PRODU <SEE NOTE> 12 Laboratory test finding 08/05/2020 [facility] Main Lab [address] [place] [address] [phone] Pathology Request For Service (SEE NOTE) 13 1 Units are mL/min/1.73 m2 Chronic Kidney Disease Staging per NKF: Stage I & II GFR >=60 Normal to Mildly Decreased Stage III GFR 30-59 Moderately Decreased Stage IV GFR 15-29 Severely Decreased Stage V GFR <15 Very Little GFR Left ESRD GFR <15 on PROPERTY DEVELOPER 2 Units are mL/min/1.73 m2 Chronic Kidney Disease Staging per NKF: Stage I & II GFR >=60 Normal to Mildly Decreased Stage III GFR 30-59 Moderately Decreased Stage IV GFR 15-29 Severely Decreased Stage V GFR <15 Very Little GFR Left ESRD GFR <15 on PROPERTY DEVELOPER 3 TRANSFUSED PRODUCT: PACKED C ELLS COUNT: 1 4 Anti-Jka 5 Units are mL/min/1.73 m2 Chronic Kidney Disease Staging per NKF: Stage I & II GFR >=60 Normal to Mildly Decreased Stage III GFR 30-59 Moderately Decreased Stage IV GFR 15-29 Severely Decreased Stage V GFR <15 Very Little GFR Left ESRD GFR <15 on PROPERTY DEVELOPER 6 Units are mL/min/1.73 m2 Chronic Kidney Disease Staging per NKF: Stage I & II GFR >=60 Normal to Mildly Decreased Stage III GFR 30-59 Moderately Decreased Stage IV GFR 15-29 Severely Decreased Stage V GFR <15 Very Little GFR Left ESRD GFR <15 on PROPERTY DEVELOPER 7 THERAPUTIC HUMAN INR VALUES INDICATIONS NORMAL RANGES PROPHYLAXIS/TREATMENT OF: VENOUS THROMBOSIS 2.0-3.0 PULMONARY EMBOLISM 2.0-3.0 PREVENTION OF SYSTEMIC EMBOLISM FROM: TISSUE HEART VALVES 2.0-3.0 ACUTE MYOCARDIAL INFARCTION 2.0-3.0 VALVULAR HEART DISEASE 2.0-3.0 ATRIAL FIBRILLATION 2.0-3.0 MECHANICAL VALVES(HIGH RISK) 2.5-3.5 RECURRENT MYOCARDIAL INFARCTION 2.5-3.5 8 Units are mL/min/1.73 m2 Chronic Kidney Disease Staging per NKF: Stage I & II GFR >=60 Normal to Mildly Decreased Stage III GFR 30-59 Moderately Decreased Stage IV GFR 15-29 Severely Decreased Stage V GFR <15 Very Little GFR Left ESRD GFR <15 on PROPERTY DEVELOPER 9 LAB DRAW 10 Units are mL/min/1.73 m2 Chronic Kidney Disease Staging per NKF: Stage I & II GFR >=60 Normal to Mildly Decreased Stage III GFR 30-59 Moderately Decreased Stage IV GFR 15-29 Severely Decreased Stage V GFR <15 Very Little GFR Left ESRD GFR <15 on PROPERTY DEVELOPER 11 Anti-Jka 12 TRANSFUSED PRODUCT: PACKED C ELLS COUNT: 2 13 FINAL DIAGNOSIS Colon, 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 -4/TR 08/06/2020 - 1224 CLINICAL DIAGNOSIS Anemia 08/05/2020 - 150 GROSS DIAGNOSIS Received in formalin labeled "biopsy at 65 cm" consists of two fragments of leon tissue measuring 0.5 x 0.3 x 0.2 cm in aggregate. All in one. -SV 08/05/2020 - 150 Signed RICARDA CHRISTINA MD 08/06/2020 1238 Procedures Description No Information Available Medical Devices Description No Information Available Encounters Type Date Location Provider Dx Diagnosis Office Visit 06/30/2020 1:00p [facility] Gerhard bowers JR, MD D50.9 Iron deficiency anemia, unspecified Office Visit 06/28/2020 3:15p [facility] Lina maxwell MD N18.4 Chronic kidney disease, stage 4 (severe) Assessments Date Code Description Provider 06/30/2020 D50.9 Iron deficiency anemia, unspecif ied Gerhard Aceves JR, MD 06/28/2020 N18.4 Chronic kidney disease, stage 4 (severe) Lina Jade MD Plan of Treatment Future Appointment(s):* 08/19/2020 1:00 pm - KRISTY Meyer at [facility] * 08/13/2020 10:15 am - Lina Jade MD at [facility] 06/30/2020 - Gerhard Aceves JR, [...] to have his diuretics modified by his hair designer as well during this outpatient procedure. In any case patient understands risks as well as benefits associated with the upper and lower endoscopy would like to proceed with this as scheduled. Functional Status Description No Information Available Mental Status Description No Information Available Referrals Refer to Reason for Referral Status Appt Date Lina Jade MD EVAL [facility]F Closed 06/28/2020 [address] [facility], [address] [place] [address] [phone]
--- OUTSIDE RECORDS SUMMARY | 2020-08-13 09:53 | CCD | Continuity of Care Document ---
Author Organization Unknown Address Unknown Phone Unavailable Care Team Providers Care Basket Maker Name Role Phone Lanie Meng M.D. AUTM Gabriel Ng D.O. AUTM [phone] Problems Description No Active Problems Social History [...] Tablets hs Unknown Calcium 600 + D [id number] Tab lets once a day Unknown Torsemide [...] qd Unknown Vitamin D3 Ultra Potency 1.25mg (13266 Ut) Tablets take 1 tab by mouth qd Unknown Immunizations Description No Information Available Vital Signs Date Vital Result Comment 06/30/2020 1:25pm BP Systolic 108 mmHg BP Diastolic 56 mmHg Heart Rate 76 /min Height 69 inches 5'9" Weight 325.00 lb BMI (Body Mass Index) 48.0 kg/m2 [place] Body Weight 160 lb Weight 147.420 kg BSA (Body Surface Area) 2.54 m2 06/28/2020 3:25pm BP Systolic 139 mmHg BP Diastolic 69 mmHg Height 69 inches 5'9" Weight 300.00 lb Stated BMI (Body Mass Index) 44.3 kg/m2 [place] Body Weight 160 lb Weight 136.080 kg BSA (Body Surface Area) 2.45 m2 Results Test Acquired Date Facility Test Result H/L Range Note CBC With Differential 08/08/2020 [facility] Main Lab [address] [place] [address] 72958 [phone] White Blood Count 4.4 10 Normal 4.0-10.0 [...] 36.0-66.0 Lymph % 8.7 % Low 24.0-44.0 [place] % 10.7 % High 0.0-5.0 Eos % 7.5 % High 0.0-3.0 Baso % 0.5 % Normal 0.0-1.0 Immature Granulocyte % 0.7 % Normal 0-3.0 Nucleated Red Blood Cell % 0.0 % Normal 0-0 Neutrophils # 3.2 10 Normal 1.5-8.5 Lymph # 0.4 10 Low 1.5-5.0 [place] # 0.5 10 Normal 0.0-0.8 Eos # 0.3 10 Normal 0.0-0.5 Baso # 0.0 10 Normal 0.0-0.2 Basic Metabolic Profile 08/08/2020 [facility] Main Lab [address] [place] [address] [phone] Glucose, Fasting 108 mg/dL High 70-100 Blood [...] mg/dL Normal 8.8-10.2 Laboratory test finding 08/07/2020 [facility] Main Lab [address] [place] [address] [phone] Packed Cells TRANSFUSED PRODU <SEE NOTE> 2 Type & Screen -Incl Blood Type,Ezra,AB SC 08/07/2020 [facility] Main Lab [address] [place] [address] 60514 [phone] Blood Type O POSITIVE Normal AB Screen (Indirect James)Vis POSITIVE Normal Laboratory test finding 08/07/2020 [facility] Main Lab [address] [place] [address] 33454 [phone] Antibody Identification Anti-I Normal 3 CBC With Differential 08/07/2020 [facility] Main Lab [address] [place] [address] 97454 [phone] White Blood Count 3.8 10 Low 4.0-10.0 [...] 36.0-66.0 Lymph % 9.9 % Low 24.0-44.0 [place] % 12.3 % High 0.0-5.0 Eos % 6.0 % High 0.0-3.0 Baso % 0.3 % Normal 0.0-1.0 Immature Granulocyte % 0.5 % Normal 0-3.0 Nucleated Red Blood Cell % 0.0 % Normal 0-0 Neutrophils # 2.7 10 Normal 1.5-8.5 Lymph # 0.4 10 Low 1.5-5.0 [place] # 0.5 10 Normal 0.0-0.8 Eos # 0.2 10 Normal 0.0-0.5 Baso # 0.0 10 Normal 0.0-0.2 Basic Metabolic Profile 08/07/2020 [facility] Main Lab [address] [place], [place] [phone] Glucose, Fasting 112 mg/dL High 70-100 Blood [...] mg/dL Low 8.8-10.2 Basic Metabolic Profile 08/06/2020 [facility] Main Lab [address] [place], [place] [phone] Glucose, Fasting 109 mg/dL High 70-100 Blood [...] mg/dL Low 8.8-10.2 PT & Aptt 08/06/2020 [facility] Main Lab [address] [place] [address] 13470 [phone] Prothrombin Time 16.0 seconds High 12.5-14.3 Inr 1.25 Normal 6 Partial Thromboplastin Time 33.0 seconds Normal 24.2-38.5 CBC With Differential 08/06/2020 [facility] Main Lab [address] [place] [address] 66804 [phone] White Blood Count 3.9 10 Low 4.0-10.0 [...] 36.0-66.0 Lymph % 8.4 % Low 24.0-44.0 [place] % 12.0 % High 0.0-5.0 Eos % 3.8 % High 0.0-3.0 Baso % 0.5 % Normal 0.0-1.0 Immature Granulocyte % 0.3 % Normal 0-3.0 Nucleated Red Blood Cell % 0.0 % Normal 0-0 Neutrophils # 3.0 10 Normal 1.5-8.5 Lymph # 0.3 10 Low 1.5-5.0 [place] # 0.5 10 Normal 0.0-0.8 Eos # 0.2 10 Normal 0.0-0.5 Baso # 0.0 10 Normal 0.0-0.2 Renal Profile 08/06/2020 [facility] Main Lab [address] [place] [address] 64308 [phone] Glucose, Fasting 157 mg/dL High 70-100 Blood [...] GM/DL Low 3.2-5.2 Complete Blood Count 08/05/2020 [facility] Main Lab [address] [place] [address] [phone] White Blood Count 3.7 10 Low 4.0-10.0 [...] Normal 0-0 Laboratory test finding 08/05/2020 [facility] Main Lab [address] [place] [address] [phone] Immature Platelet Fraction 1.1 % Normal 0.0-1 0.91 8 Comprehensive Metabolic Profil 08/05/2020 [facility] Main Lab [address] [place] [address] [phone] Glucose, Fasting 123 mg/dL High 70-100 Blood [...] & Screen -Incl Blood Type,Ezra,AB SC 08/05/2020 [facility] Main Lab [address] [place] [address] 21428 [phone] Blood Type O POSITIVE Normal AB Screen (Indirect James)Vis POSITIVE Normal Laboratory test finding 08/05/2020 [facility] Main Lab [address] [place] [address] 57920 [phone] Antibody Identification Anti-I Normal 10 Laboratory test finding 08/05/2020 [facility] Main Lab [address] [place] [address] 69117 [phone] Packed Cells TRANSFUSED PRODU <SEE NOTE> 11 Laboratory test finding 08/05/2020 [facility] Main Lab [address] [place] [address] 43654 [phone] Pathology Request For Service (SEE NOTE) 12 1 Units are mL/min/1.73 m2 Chronic Kidney Disease Staging per NKF: Stage I & II GFR >=60 Normal to Mildly Decreased Stage III GFR 30-59 Moderately Decreased Stage IV GFR 15-29 Severely Decreased Stage V GFR <15 Very Little GFR Left ESRD GFR <15 on RECONNAISSANCE CREWMEMBER 2 TRANSFUSED PRODUCT: PACKED C ELLS COUNT: 1 3 Anti-Jka 4 Units are mL/min/1.73 m2 Chronic Kidney Disease Staging per NKF: Stage I & II GFR >=60 Normal to Mildly Decreased Stage III GFR 30-59 Moderately Decreased Stage IV GFR 15-29 Severely Decreased Stage V GFR <15 Very Little GFR Left ESRD GFR <15 on RECONNAISSANCE CREWMEMBER 5 Units are mL/min/1.73 m2 Chronic Kidney Disease Staging per NKF: Stage I & II GFR >=60 Normal to Mildly Decreased Stage III GFR 30-59 Moderately Decreased Stage IV GFR 15-29 Severely Decreased Stage V GFR <15 Very Little GFR Left ESRD GFR <15 on RECONNAISSANCE CREWMEMBER 6 THERAPUTIC HUMAN INR VALUES INDICATIONS NORMAL [...] Little GFR Left ESRD GFR <15 on RECONNAISSANCE CREWMEMBER 8 LAB DRAW 9 Units are mL/min/1.73 m2 Chronic Kidney Disease Staging per NKF: Stage I & II GFR >=60 Normal to Mildly Decreased Stage III GFR 30-59 Moderately Decreased Stage IV GFR 15-29 Severely Decreased Stage V GFR <15 Very Little GFR Left ESRD GFR <15 on RECONNAISSANCE CREWMEMBER 10 Anti-Jka 11 TRANSFUSED PRODUCT: PACKED C [...] Provider Dx Diagnosis Office Visit 06/30/2020 1:00p [facility] Gerhard bowers JR, MD D50.9 Iron deficiency anemia, unspecified Office Visit 06/28/2020 3:15p [facility] Lina maxwell MD N18.4 Chronic kidney disease, stage 4 (severe) Assessments Date Code Description Provider 06/30/2020 D50.9 Iron deficiency anemia, unspecif ied Gerhard Aceves JR, MD 06/28/2020 N18.4 Chronic kidney disease, stage 4 (severe) Lina Jade MD Plan of Treatment Future Appointment(s):* 08/19/2020 1:00 pm - KRISTY Meyer at [facility] * 08/13/2020 10:15 am - Lina Jade MD at [facility] 06/30/2020 - Gerhard Aceves JR, MD* [...] to have his diuretics modified by his lasting floorworker as well during this outpatient procedure. In any case patient understands risks as well as benefits associated with the upper and lower endoscopy would like to proceed with this as scheduled. Functional Status Description No Information Available Mental Status Description No Information Available Referrals Refer to Reason for Referral Status Appt Date Lina Jade MD EVAL AVF Closed 06/28/2020 [address] [facility], [address] [place] [address] [phone]
--- OUTSIDE RECORDS SUMMARY | 2020-08-13 09:53 | CCD | Continuity of Care Document ---
Author Author Jeffrey ACEVES MD Organization Unknown Address [address] [facility] [address] [place] [address] Phone [phone] Care Team Providers Care Motorcycle Delivery Driver Name Role Phone Lanie Meng M.D. AUTM [phone] Gabriel Ng D.O. AUTM [phone] Problems Description No Active Problems Social History [...] Tablets hs Unknown Calcium 600 + D [id number] Tab lets once a day Unknown Torsemide [...] qd Unknown Vitamin D3 Ultra Potency 1.25mg (61453 Ut) Tablets take 1 tab by mouth qd Unknown Immunizations Description No Information Available Vital Signs Date Vital Result Comment 06/30/2020 1:25pm BP Systolic 108 mmHg BP Diastolic 56 mmHg Heart Rate 76 /min Height 69 inches 5'9" Weight 325.00 lb BMI (Body Mass Index) 48.0 kg/m2 [place] Body Weight 160 lb Weight 147.420 kg BSA (Body Surface Area) 2.54 m2 06/28/2020 3:25pm BP Systolic 139 mmHg BP Diastolic 69 mmHg Height 69 inches 5'9" Weight 300.00 lb Stated BMI (Body Mass Index) 44.3 kg/m2 [place] Body Weight 160 lb Weight 136.080 kg BSA (Body Surface Area) 2.45 m2 Results Test Acquired Date Facility Test Result H/L Range Note Laboratory test finding 08/07/2020 [facility] Main Lab [address] [place] [address] [id number] [phone] Packed Cells TRANSFUSED PRODU <SEE NOTE> 1 Type & Screen -Incl Blood Type,Ezra,AB SC 08/07/2020 [facility] Main Lab [address] [place] [address] [phone] Blood Type O POSITIVE Normal AB Screen (Indirect James)Vis POSITIVE Normal Laboratory test finding 08/07/2020 [facility] Main Lab [address] [place] [address] [phone] Antibody Identification Anti-I Normal 2 CBC With Differential 08/07/2020 [facility] Main Lab [address] [place] [address] [phone] White Blood Count 3.8 10 Low 4.0-10.0 [...] 36.0-66.0 Lymph % 9.9 % Low 24.0-44.0 [place] % 12.3 % High 0.0-5.0 Eos % 6.0 % High 0.0-3.0 Baso % 0.3 % Normal 0.0-1.0 Immature Granulocyte % 0.5 % Normal 0-3.0 Nucleated Red Blood Cell % 0.0 % Normal 0-0 Neutrophils # 2.7 10 Normal 1.5-8.5 Lymph # 0.4 10 Low 1.5-5.0 [place] # 0.5 10 Normal 0.0-0.8 Eos # 0.2 10 Normal 0.0-0.5 Baso # 0.0 10 Normal 0.0-0.2 Basic Metabolic Profile 08/07/2020 [facility] Main Lab [address] [place], [place] [id number] [phone] Glucose, Fasting 112 mg/dL High 70-100 Blood [...] 8.3 mg/dL Low 8.8-10.2 Renal Profile 08/06/2020 [facility] Main Lab 0 [place], [place] [phone] Glucose, Fasting 157 mg/dL High 70-100 Blood [...] GM/DL Low 3.2-5.2 CBC With Differential 08/06/2020 [facility] Main Lab [address] [place] [address] [phone] White Blood Count 3.9 10 Low 4.0-10.0 [...] 36.0-66.0 Lymph % 8.4 % Low 24.0-44.0 [place] % 12.0 % High 0.0-5.0 Eos % 3.8 % High 0.0-3.0 Baso % 0.5 % Normal 0.0-1.0 Immature Granulocyte % 0.3 % Normal 0-3.0 Nucleated Red Blood Cell % 0.0 % Normal 0-0 Neutrophils # 3.0 10 Normal 1.5-8.5 Lymph # 0.3 10 Low 1.5-5.0 [place] # 0.5 10 Normal 0.0-0.8 Eos # 0.2 10 Normal 0.0-0.5 Baso # 0.0 10 Normal 0.0-0.2 PT & Aptt 08/06/2020 [facility]ter Main Lab 0 [place] [address] [phone] Prothrombin Time 16.0 seconds High 12.5-14.3 Inr 1.25 Normal 5 Partial Thromboplastin Time 33.0 seconds Normal 24.2-38.5 Basic Metabolic Profile 08/06/2020 [facility] Main Lab [address] [place] [address] [phone] Glucose, Fasting 109 mg/dL High 70-100 Blood [...] mg/dL Low 8.8-10.2 Complete Blood Count 08/05/2020 [facility] Main Lab [address] [place] [address] [phone] White Blood Count 3.7 10 Low 4.0-10.0 [...] % Normal 0-0 Laboratory test finding 08/05/2020 [facility] Main Lab 0 [place] [address] [phone] Immature Platelet Fraction 1.1 % Normal 0.0-1 0.91 7 Comprehensive Metabolic Profil 08/05/2020 [facility] Main Lab 0 [place] [address] [phone] Glucose, Fasting 123 mg/dL High 70-100 Blood [...] & Screen -Incl Blood Type,Ezra,AB SC 08/05/2020 [facility] Main Lab [address] [place] [address] [phone] Blood Type O POSITIVE Normal AB Screen (Indirect James)Vis POSITIVE Normal Laboratory test finding 08/05/2020 [facility] Main Lab [address] [place] [address] [phone] Antibody Identification Anti-I Normal 9 Laboratory test finding 08/05/2020 [facility] Main Lab [address] [place] [address] [phone] Packed Cells TRANSFUSED PRODU <SEE NOTE> 10 Laboratory test finding 08/05/2020 [facility] Main Lab [address] [place] [address] [phone] Pathology Request For Service (SEE NOTE) 11 1 TRANSFUSED PRODUCT: PACKED C ELLS COUNT: 1 2 Anti-Jka 3 Units are mL/min/1.73 m2 Chronic Kidney Disease Staging per NKF: Stage I & II GFR >=60 Normal to Mildly Decreased Stage III GFR 30-59 Moderately Decreased Stage IV GFR 15-29 Severely Decreased Stage V GFR <15 Very Little GFR Left ESRD GFR <15 on STAFF CONSULTANT 4 Units are mL/min/1.73 m2 Chronic Kidney Disease Staging per NKF: Stage I & II GFR >=60 Normal to Mildly Decreased Stage III GFR 30-59 Moderately Decreased Stage IV GFR 15-29 Severely Decreased Stage V GFR <15 Very Little GFR Left ESRD GFR <15 on STAFF CONSULTANT 5 THERAPUTIC HUMAN INR VALUES INDICATIONS NORMAL [...] Little GFR Left ESRD GFR <15 on STAFF CONSULTANT 7 LAB DRAW 8 Units are mL/min/1.73 m2 Chronic Kidney Disease Staging per NKF: Stage I & II GFR >=60 Normal to Mildly Decreased Stage III GFR 30-59 Moderately Decreased Stage IV GFR 15-29 Severely Decreased Stage V GFR <15 Very Little GFR Left ESRD GFR <15 on STAFF CONSULTANT 9 Anti-Jka 10 TRANSFUSED PRODUCT: PACKED C [...] Provider Dx Diagnosis Office Visit 06/30/2020 1:00p [facility] Gerhard bowers JR, MD D50.9 Iron deficiency anemia, unspecified Office Visit 06/28/2020 3:15p [facility] Lina maxwell MD N18.4 Chronic kidney disease, stage 4 (severe) Assessments Date Code Description Provider 06/30/2020 D50.9 Iron deficiency anemia, unspecif ied Gerhard Aceves JR, MD 06/28/2020 N18.4 Chronic kidney disease, stage 4 (severe) Lina Jade MD Plan of Treatment Future Appointment(s):* 08/19/2020 1:00 pm - KRISTY Meyer at [facility] * 08/13/2020 10:15 am - Lina Jade MD at [facility] 06/30/2020 - Gerhard Aceves [...] to have his diuretics modified by his wind technician as well during this outpatient procedure. In any case patient understands risks as well as benefits associated with the upper and lower endoscopy would like to proceed with this as scheduled. Functional Status Description No Information Available Mental Status Description No Information Available Referrals Refer to Reason for Referral Status Appt Date Lina Jade MD EVAL [facility]F Closed 06/28/2020 [address] [facility], [address] [place] [address] [phone]
--- OUTSIDE RECORDS SUMMARY | 2020-08-13 09:54 | CCD | Continuity of Care Document ---
Author Organization Unknown Address Unknown Phone Unavailable Care Team Providers Care Magistrate Assistant Name Role Phone Lanie Meng M.D. AUTM [phone] Gabriel Ng D.O. AUTM [phone] Problems Description No Active Problems Social History [...] Tablets hs Unknown Calcium 600 + D [id number] Tab lets once a day Unknown Torsemide [...] qd Unknown Vitamin D3 Ultra Potency 1.25mg (39792 Ut) Tablets take 1 tab by mouth qd Unknown Immunizations Description No Information Available Vital Signs Date Vital Result Comment 06/30/2020 1:25pm BP Systolic 108 mmHg BP Diastolic 56 mmHg Heart Rate 76 /min Height 69 inches 5'9" Weight 325.00 lb BMI (Body Mass Index) 48.0 kg/m2 [place] Body Weight 160 lb Weight 147.420 kg BSA (Body Surface Area) 2.54 m2 06/28/2020 3:25pm BP Systolic 139 mmHg BP Diastolic 69 mmHg Height 69 inches 5'9" Weight 300.00 lb Stated BMI (Body Mass Index) 44.3 kg/m2 [place] Body Weight 160 lb Weight 136.080 kg BSA (Body Surface Area) 2.45 m2 Results Test Acquired Date Facility Test Result H/L Range Note Laboratory test finding 08/07/2020 [facility] Main Lab [address] [place] [address] [phone] Packed Cells TRANSFUSED PRODU <SEE NOTE> 1 Type & Screen -Incl Blood Type,Ezra,AB SC 08/07/2020 [facility] Main Lab [address] [place] [address] [phone] Blood Type O POSITIVE Normal AB Screen (Indirect James)Vis POSITIVE Normal Laboratory test finding 08/07/2020 [facility] Main Lab [address] [place] [address] [phone] Antibody Identification Anti-I Normal 2 CBC With Differential 08/07/2020 [facility] Main Lab [address] [place] [address] [phone] White Blood Count 3.8 10 Low 4.0-10.0 [...] 36.0-66.0 Lymph % 9.9 % Low 24.0-44.0 [place] % 12.3 % High 0.0-5.0 Eos % 6.0 % High 0.0-3.0 Baso % 0.3 % Normal 0.0-1.0 Immature Granulocyte % 0.5 % Normal 0-3.0 Nucleated Red Blood Cell % 0.0 % Normal 0-0 Neutrophils # 2.7 10 Normal 1.5-8.5 Lymph # 0.4 10 Low 1.5-5.0 [place] # 0.5 10 Normal 0.0-0.8 Eos # 0.2 10 Normal 0.0-0.5 Baso # 0.0 10 Normal 0.0-0.2 Basic Metabolic Profile 08/07/2020 [facility] Main Lab [address] [place], [place] [phone] Glucose, Fasting 112 mg/dL High 70-100 Blood [...] 8.3 mg/dL Low 8.8-10.2 Renal Profile 08/06/2020 [facility] Main Lab [address] [place], [place] [phone] Glucose, Fasting 157 mg/dL High 70-100 Blood [...] Low 3.2-5.2 CBC With Differential 08/06/2020 [facility] Main Lab [address] [place] [address] [phone] White Blood Count 3.9 10 Low 4.0-10.0 [...] 36.0-66.0 Lymph % 8.4 % Low 24.0-44.0 [place] % 12.0 % High 0.0-5.0 Eos % 3.8 % High 0.0-3.0 Baso % 0.5 % Normal 0.0-1.0 Immature Granulocyte % 0.3 % Normal 0-3.0 Nucleated Red Blood Cell % 0.0 % Normal 0-0 Neutrophils # 3.0 10 Normal 1.5-8.5 Lymph # 0.3 10 Low 1.5-5.0 [place] # 0.5 10 Normal 0.0-0.8 Eos # 0.2 10 Normal 0.0-0.5 Baso # 0.0 10 Normal 0.0-0.2 PT & Aptt 08/06/2020 [facility] nter Main Lab [address] [place] [address] [phone] Prothrombin Time 16.0 seconds High 12.5-14.3 Inr 1.25 Normal 5 Partial Thromboplastin Time 33.0 seconds Normal 24.2-38.5 Basic Metabolic Profile 08/06/2020 [facility] Main Lab [address] [place] [address] [phone] Glucose, Fasting 109 mg/dL High 70-100 Blood [...] Low 8.8-10.2 Complete Blood Count 08/05/2020 [facility] Main Lab [address] [place] [address] [phone] White Blood Count 3.7 10 Low 4.0-10.0 [...] % Normal 0-0 Laboratory test finding 08/05/2020 [facility] Main Lab [address] [place] [address] [phone] Immature Platelet Fraction 1.1 % Normal 0.0-1 0.91 7 Comprehensive Metabolic Profil 08/05/2020 [facility] Main Lab [address] [place] [address] [phone] Glucose, Fasting 123 mg/dL High 70-100 Blood [...] Screen -Incl Blood Type,Ezra,AB SC 08/05/2020 [facility] Main Lab [address] [place] [address] [phone] Blood Type O POSITIVE Normal AB Screen (Indirect James)Vis POSITIVE Normal Laboratory test finding 08/05/2020 [facility] Main Lab [address] [place] [address] [phone] Antibody Identification Anti-I Normal 9 Laboratory test finding 08/05/2020 [facility] Main Lab [address] [place] [address] [phone] Packed Cells TRANSFUSED PRODU <SEE NOTE> 10 Laboratory test finding 08/05/2020 [facility] Main Lab [address] [place] [address] [phone] Pathology Request For Service (SEE NOTE) 11 1 TRANSFUSED PRODUCT: PACKED C ELLS COUNT: 1 2 Anti-Jka 3 Units are mL/min/1.73 m2 Chronic Kidney Disease Staging per NKF: Stage I & II GFR >=60 Normal to Mildly Decreased Stage III GFR 30-59 Moderately Decreased Stage IV GFR 15-29 Severely Decreased Stage V GFR <15 Very Little GFR Left ESRD GFR <15 on CERNER ANALYST 4 Units are mL/min/1.73 m2 Chronic Kidney Disease Staging per NKF: Stage I & II GFR >=60 Normal to Mildly Decreased Stage III GFR 30-59 Moderately Decreased Stage IV GFR 15-29 Severely Decreased Stage V GFR <15 Very Little GFR Left ESRD GFR <15 on CERNER ANALYST 5 THERAPUTIC HUMAN INR VALUES INDICATIONS NORMAL [...] Little GFR Left ESRD GFR <15 on CERNER ANALYST 7 LAB DRAW 8 Units are mL/min/1.73 m2 Chronic Kidney Disease Staging per NKF: Stage I & II GFR >=60 Normal to Mildly Decreased Stage III GFR 30-59 Moderately Decreased Stage IV GFR 15-29 Severely Decreased Stage V GFR <15 Very Little GFR Left ESRD GFR <15 on CERNER ANALYST 9 Anti-Jka 10 TRANSFUSED PRODUCT: PACKED C [...] Provider Dx Diagnosis Office Visit 06/30/2020 1:00p [facility] Gerhard bowers JR, MD D50.9 Iron deficiency anemia, unspecified Office Visit 06/28/2020 3:15p [facility] Lina maxwell MD N18.4 Chronic kidney disease, stage 4 (severe) Assessments Date Code Description Provider 06/30/2020 D50.9 Iron deficiency anemia, unspecif ied Gerhard Aceves JR, MD 06/28/2020 N18.4 Chronic kidney disease, stage 4 (severe) Lina Jade MD Plan of Treatment Future Appointment(s):* 08/19/2020 1:00 pm - KRISTY Meyer at [facility] * 08/13/2020 10:15 am - Lina Jade MD at [facility] 06/30/2020 - Gerhard Aceves JR, [...] to have his diuretics modified by his personal lines account executive as well during this outpatient procedure. In any case patient understands risks as well as benefits associated with the upper and lower endoscopy would like to proceed with this as scheduled. Functional Status Description No Information Available Mental Status Description No Information Available Referrals Refer to Reason for Referral Status Appt Date Lina Jade MD EVAL AVF Closed 06/28/2020 6 [facility], [address] [place] [address] [phone]
--- OUTSIDE RECORDS SUMMARY | 2020-08-13 09:54 | CCD | Continuity of Care Document ---
Author Organization Unknown Address Unknown Phone Unavailable Care Team Providers Care Chlorinator Operator Name Role Phone Lanie Meng M.D. AUTM [phone] Gabriel Ng D.O. AUTM [phone] Problems Description No Active Problems Social History [...] Tablets hs Unknown Calcium 600 + D [id number] Tab lets once a day Unknown Torsemide [...] qd Unknown Vitamin D3 Ultra Potency 1.25mg (64678 Ut) Tablets take 1 tab by mouth qd Unknown Immunizations Description No Information Available Vital Signs Date Vital Result Comment 06/30/2020 1:25pm BP Systolic 108 mmHg BP Diastolic 56 mmHg Heart Rate 76 /min Height 69 inches 5'9" Weight 325.00 lb BMI (Body Mass Index) 48.0 kg/m2 [place] Body Weight 160 lb Weight 147.420 kg BSA (Body Surface Area) 2.54 m2 06/28/2020 3:25pm BP Systolic 139 mmHg BP Diastolic 69 mmHg Height 69 inches 5'9" Weight 300.00 lb Stated BMI (Body Mass Index) 44.3 kg/m2 [place] Body Weight 160 lb Weight 136.080 kg BSA (Body Surface Area) 2.45 m2 Results Test Acquired Date Facility Test Result H/L Range Note Laboratory test finding 08/07/2020 [facility] Main Lab [address] [place] [address] [phone] Packed Cells TRANSFUSED PRODU <SEE NOTE> 1 Type & Screen -Incl Blood Type,Ezra,AB SC 08/07/2020 [facility] Main Lab [address] [place] [address] [phone] Blood Type O POSITIVE Normal AB Screen (Indirect James)Vis POSITIVE Normal Laboratory test finding 08/07/2020 [facility] Main Lab [address] [place] [address] [phone] Antibody Identification Anti-I Normal 2 CBC With Differential 08/07/2020 [facility] Main Lab [address] [place] [address] [phone] White Blood Count 3.8 10 Low 4.0-10.0 [...] 36.0-66.0 Lymph % 9.9 % Low 24.0-44.0 [place] % 12.3 % High 0.0-5.0 Eos % 6.0 % High 0.0-3.0 Baso % 0.3 % Normal 0.0-1.0 Immature Granulocyte % 0.5 % Normal 0-3.0 Nucleated Red Blood Cell % 0.0 % Normal 0-0 Neutrophils # 2.7 10 Normal 1.5-8.5 Lymph # 0.4 10 Low 1.5-5.0 [place] # 0.5 10 Normal 0.0-0.8 Eos # 0.2 10 Normal 0.0-0.5 Baso # 0.0 10 Normal 0.0-0.2 Basic Metabolic Profile 08/07/2020 [facility] Main Lab [address] [place], [place] 1987949 [phone] Glucose, Fasting 112 mg/dL High 70-100 Blood [...] 8.3 mg/dL Low 8.8-10.2 Renal Profile 08/06/2020 [facility] Main Lab [address] [place], [place] 1109410 [phone] Glucose, Fasting 157 mg/dL High 70-100 Blood [...] GM/DL Low 3.2-5.2 CBC With Differential 08/06/2020 [facility] Main Lab [address] [place] [address] [phone] White Blood Count 3.9 10 Low 4.0-10.0 [...] 36.0-66.0 Lymph % 8.4 % Low 24.0-44.0 [place] % 12.0 % High 0.0-5.0 Eos % 3.8 % High 0.0-3.0 Baso % 0.5 % Normal 0.0-1.0 Immature Granulocyte % 0.3 % Normal 0-3.0 Nucleated Red Blood Cell % 0.0 % Normal 0-0 Neutrophils # 3.0 10 Normal 1.5-8.5 Lymph # 0.3 10 Low 1.5-5.0 [place] # 0.5 10 Normal 0.0-0.8 Eos # 0.2 10 Normal 0.0-0.5 Baso # 0.0 10 Normal 0.0-0.2 PT & Aptt 08/06/2020 [facility] nter Main Lab [address] [place] [address] [phone] Prothrombin Time 16.0 seconds High 12.5-14.3 Inr 1.25 Normal 5 Partial Thromboplastin Time 33.0 seconds Normal 24.2-38.5 Basic Metabolic Profile 08/06/2020 [facility] Main Lab [address] [place] [address] [phone] Glucose, Fasting 109 mg/dL High 70-100 Blood [...] mg/dL Low 8.8-10.2 Complete Blood Count 08/05/2020 [facility] Main Lab [address] [place] [address] [phone] White Blood Count 3.7 10 Low 4.0-10.0 [...] % Normal 0-0 Laboratory test finding 08/05/2020 [facility] Main Lab [address] [place] [address] [phone] Immature Platelet Fraction 1.1 % Normal 0.0-1 0.91 7 Comprehensive Metabolic Profil 08/05/2020 [facility] Main Lab [address] [place] [address] [phone] Glucose, Fasting 123 mg/dL High 70-100 Blood [...] & Screen -Incl Blood Type,Ezra,AB SC 08/05/2020 [facility] Main Lab [address] [place] [address] [phone] Blood Type O POSITIVE Normal AB Screen (Indirect James)Vis POSITIVE Normal Laboratory test finding 08/05/2020 [facility] Main Lab [address] [place] [address] 19227 [phone] Antibody Identification Anti-I Normal 9 Laboratory test finding 08/05/2020 [facility] Main Lab [address] [place] [address]01 [phone] Packed Cells TRANSFUSED PRODU <SEE NOTE> 10 Laboratory test finding 08/05/2020 [facility] Main Lab [address] [place] [address] 7[address] [phone] Pathology Request For Service (SEE NOTE) 11 1 TRANSFUSED PRODUCT: PACKED C ELLS COUNT: 1 2 Anti-Jka 3 Units are mL/min/1.73 m2 Chronic Kidney Disease Staging per NKF: Stage I & II GFR >=60 Normal to Mildly Decreased Stage III GFR 30-59 Moderately Decreased Stage IV GFR 15-29 Severely Decreased Stage V GFR <15 Very Little GFR Left ESRD GFR <15 on PULVERIZING AND SIFTING OPERATOR 4 Units are mL/min/1.73 m2 Chronic Kidney Disease Staging per NKF: Stage I & II GFR >=60 Normal to Mildly Decreased Stage III GFR 30-59 Moderately Decreased Stage IV GFR 15-29 Severely Decreased Stage V GFR <15 Very Little GFR Left ESRD GFR <15 on PULVERIZING AND SIFTING OPERATOR 5 THERAPUTIC HUMAN INR VALUES INDICATIONS NORMAL [...] Little GFR Left ESRD GFR <15 on PULVERIZING AND SIFTING OPERATOR 7 LAB DRAW 8 Units are mL/min/1.73 m2 Chronic Kidney Disease Staging per NKF: Stage I & II GFR >=60 Normal to Mildly Decreased Stage III GFR 30-59 Moderately Decreased Stage IV GFR 15-29 Severely Decreased Stage V GFR <15 Very Little GFR Left ESRD GFR <15 on PULVERIZING AND SIFTING OPERATOR 9 Anti-Jka 10 TRANSFUSED PRODUCT: PACKED C [...] Provider Dx Diagnosis Office Visit 06/30/2020 1:00p [facility] Gerhard bowers JR, MD D50.9 Iron deficiency anemia, unspecified Office Visit 06/28/2020 3:15p [facility] Lina maxwell MD N18.4 Chronic kidney disease, stage 4 (severe) Assessments Date Code Description Provider 06/30/2020 D50.9 Iron deficiency anemia, unspecif ied Gerhard Aceves JR, MD 06/28/2020 N18.4 Chronic kidney disease, stage 4 (severe) Lina Jade MD Plan of Treatment Future Appointment(s):* 08/19/2020 1:00 pm - KRISTY Meyer at [facility] * 08/13/2020 10:15 am - Lina Jade MD at [facility] 06/30/2020 - Gerhard Aceves [...] to have his diuretics modified by his latin american studies professor as well during this outpatient procedure. In any case patient understands risks as well as benefits associated with the upper and lower endoscopy would like to proceed with this as scheduled. Functional Status Description No Information Available Mental Status Description No Information Available Referrals Refer to Reason for Referral Status Appt Date Lina Jade MD EVAL AVF Closed 06/28/2020 6 [facility], [address] [place] [address] [phone]
--- OUTSIDE RECORDS SUMMARY | 2020-08-13 09:54 | CCD ---
Author Author [facility] Organization [facility] Address Unknown Phone Unavailable Care Team Providers Care Metal Spinner Name Role Phone Gabriel Ng Unavailable PROBLEMS Type Condition ICD9-CM Code [id number] Code Onset Dates Condition S tatus SNOMED Code Notes Problem Other specified disorders of kidney and ureter N28 .89 Active 890056463 Problem Personal history of malignant neoplasm of prostate Z85.46 Active 462673436 Problem CKD (chronic kidney disease), stage 4 (severe) N18 .4 Active 140226761 Problem S/P right hemicolectomy Z90.49 Active 67954218 6 Problem Anticoagulant long-term use Z79.01 Active 7111 77228 Problem Other specified hypothyroidism E03.8 Active 4 1923735 Problem Type 2 diabetes mellitus with diabetic chronic kidney disease E11.22 Active 67555807 Problem Benign prostatic hyperplasia , unspecified whether lower urinary tract symptoms present N40.0 Active 237595541 Problem Hepatic cirrhosis, unspecified hepatic cirrhosis type K74.60 Active 81416709 Problem Hydroureter N13.4 Active 12460651 Problem Prostate cancer C61 Active 608138096 Problem Iron deficiency E61.1 Active 97174927 Problem Atrial fibrillation, unspecified type I48.91 Ac tive 97509066 Problem Chronic venous hypertension (idiopathic) with ulcer of left lower extremity I87.312 Active 295670171 Problem Non-pressure chronic ulcer o f other part of right lower leg with fat layer exposed L97.812 Active 470213422 Problem Hypothyroidism, unspecified type E03.9 Active 08345225 Problem Chronic venous hypertension (idiopathic) with ulcer of right lower extremity I87.311 Active 280863736 Problem Influenza vaccination declined Z28.21 Active 3 27785817 Problem Dyslipidemia E78.5 Active 806746043 Problem 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 Active 779597219 Problem Seborrheic dermatitis L21.9 Active 96763416 Problem Type 2 diabetes mellitus with other circulatory complicati on E11.59 Active 652054153 Problem Essential hypertension I10 Active 49843223 Problem Urge incontinence N39.41 Active 48134604 Problem Iron deficiency anemia, unspecified iron deficiency an emia type D50.9 Active 86646204 Problem Lymphedema I89.0 Active 827350140 Problem Benign prostatic hyperplasia with lower urinary tract symptoms N40.1 Active 334516641165278 Problem Gout, unspecified cause, unspecified chronicity, unspecified site M10.9 Active 32276485 Problem Non-pressure chronic ulcer o f other part of left lower leg with fat layer exposed L97.822 Active 860987866 Problem Other iron deficiency anemia D50.8 Active 875 69026 Problem Chronic kidney disease, stage 4 (severe) N18.4 Active 015901409 Problem Acute on chronic congestive heart failure, unspecified heart failure type I50.9 Active 473118805 Problem Stage 4 chronic kidney disease N18.4 Active 4 65992228 ALLERGIES Allergen (clinical drug ingredient) Drug/Non Drug Allergy do cumented on EMR Reaction Allergy Type Onset Date Status oysters Hives Non Drug Allergy Active ENCOUNTERS from 1938 to 2020-08-04 Encounter Location Date Provider Diagnosis [facility] [address] [place] [address] Jul, Gabriel Ng Pre-op exam Z01.818 and Stage 4 chronic kidney disease N18.4 IMMUNIZATIONS Vaccine Route Administration Date Status [...] Education Language: Question Answer Notes Languages spoken: Yi Restoration: Question Answer Notes Restoration 03 Baptism Drug and Alcohol Question Answer Notes Total [...] FOR REFERRAL No Information VITAL SIGNS Weight 321 lbs Jul, Height 70 in Jul, BMI 46.05 kg/m2 Jul, Heart Rate 77 /min Jul, Respiratory Rate 20 /min Jul, Temperature 98.5 degrees Fahrenheit Jul, Oximetry 99% Jul, Blood pressure systolic 126 mm Hg Jul, Blood pressure diastolic 64 mm Hg Jul, MEDICATIONS Medication SIG (Take, Route, Frequency, Duration) Notes Start Da te End Date Status OneTouch Test - as directed In Vitro E11.22 check daily for 30 d ay(s) Aug, Active Metoprolol Succinate ER 50 MG 1 tablet Orally Once a day for 90 Active Glucometer E11.9 check sugars once a day for 30 day(s) Jul, Active Baby Aspirin 81 MG 1 tablet Orally Once a day for 30 day(s) Not-Taking Tamsulosin HCl 0.4 MG 1 capsule Orally Once a day for 90 days Jun, Active Metolazone 2.5 MG 1 tablet Orally on Sunday Active Flomax 0.4 MG 1 capsule 30 minutes after t he same meal each day Orally Once a day for 90 days Active Allopurinol 300 MG 1 tablet Orally Once a day Active Protonix 40 MG 1 tablet Orally Daily Active Spironolactone 25 MG 1 tablet Orally 2 pm Active Potassium Chloride ER 10 MEQ 1 tablet with food Orally Once a day Active Vitamin D3 50 MCG (1999 UT) 1 capsule Orally Once a day Active Sucralfate 1 GM 1 tablet on an empty stomach Orally with meals a nd before bed Active Ferrous Gluconate 324 (38 Fe) MG 1 tab Orally Daily Active GlipiZIDE ER 2.5 MG 1 tablet with breakfast Orally Once a day for 90 days Active Stool Softener Laxative 8.6-50 MG 1 tab Orally bid Active ICaps Plus 1tab Orally daily for 30 day(s) Active Torsemide 100 MG 1/2 tablet Orally bid Active Levothyroxine Sodium 175 MCG 1 tablet on an empty stom ach in the morning Orally Once a day for 90 day(s) Active PROCEDURES No Information RESULTS No Results REASON FOR VISIT Pre Op Right Brachial Cephalic AVF Creation MEDICAL (GENERAL) HISTORY Type Description Date Medical History CKDIV: Chronic kidney diseas e, meds from nephro include torsemide, vitamin B12, with furosemide and lisinopril and spironolactone recently stopped by the scalp specialist; November 2017 switched by nephrology to [...] 02/12/2019 Hospitalization History surgery related Hospitalization History [facility] - hematuria 09/2018 Hospitalization History [facility] 12/22/18-12/25/18 Hospitalization History Symptomatic Anemia - [facility] 05/31-05/23 Goals Section No Information Health Concerns No Information MEDICAL EQUIPMENT No Information MENTAL STATUS No Information FUNCTIONAL STATUS No Information ASSESSMENTS Encounter Date Diagnosis Assessment Notes Treatment Notes Treatm ent Clinical Notes Jul, Pre-op exam (ICD-10 - Z01.818) Patient is here for preop for AVF fistula formation with Dr. Hawley. Cardiovascular: Patient has history of atrial fibrilation. Not on anticoagulation due to history of bleeding. Is currently rate controlled on metoprolol. No recent chest pain. Respiratory: No history of asthma/ COPD. Diabetes: Recent A1C 6.2%. Well controlled. Renal: History of CKD, stage 4. Pysch/pain: No depression/ anxiety. PHQ-2 0 points. Medications: Discussed with patient to hold aspirin 5 days prior to procedure/ unless surgeon has different recommendation. Can restart 24 hours following or per surgeon. -Day of surgery since NPO, recommend hold glipizide the day of. -Also recommend hold spironolactone the day of the procedure. Tests/Labs: No recent labs/ tests to review at this time. Patient has been optimized for test at this time. Jul, Stage 4 chronic kidney disease (ICD-10 - N18.4) See preop exam PLAN OF TREATMENT Treatment Notes Assessment Notes Clinical Notes Pre-op exam Patient is here for preop for AVF fistula formation with Dr. Hawley.Cardiovascular: Patient has history of atrial fibrilation. Not on anticoagulation due to history of bleeding. Is currently rate controlled on metoprolol. No recent chest pain.Respiratory: No history of asthma/ COPD.Diabetes: Recent A1C 6.2%. Well controlled.Renal: History of CKD, stage 4.Pysch/pain: No depression/ anxiety. PHQ-2 0 points.Medications: Discussed with patient to hold aspirin 5 days prior to procedure/ unless surgeon has different recommendation. Can restart 24 hours following or per surgeon.-Day of surgery since NPO, recommend hold glipizide the day of.-Also recommend hold spironolactone the day of the procedure.Tests/Labs: No recent labs/ tests to review at this time.Patient has been optimized for test at this time. Stage 4 chronic kidney disease See preop exam Next Appt Details 1 mth Reason: Provider Name:Rosalie Biswas, 2020-11-21 4 10:45:00 AM, [address], [place], [address], Insurance Providers Payer Name Payer Address Payer Phone Insured Name Patient Relati onship to Insured Coverage Start Date Coverage End Date [employer] [address] [address] [facility] [address] [phone] REBECCA JAUREGUI self
--- OUTSIDE RECORDS SUMMARY | 2020-08-13 09:54 | CCD | Continuity of Care Document ---
Author Organization Unknown Address Unknown Phone Unavailable Care Team Providers Care Director Of Outside Sales Name Role Phone Lanie Meng M.D. AUTM [phone] Gabriel Ng D.O. AUTM [phone] Problems Description No Active Problems Social History [...] Tablets hs Unknown Calcium 600 + D [id number] Tab lets once a day Unknown Torsemide [...] qd Unknown Vitamin D3 Ultra Potency 1.25mg (33827 Ut) Tablets take 1 tab by mouth qd Unknown Immunizations Description No Information Available Vital Signs Date Vital Result Comment 06/30/2020 1:25pm BP Systolic 108 mmHg BP Diastolic 56 mmHg Heart Rate 76 /min Height 69 inches 5'9" Weight 325.00 lb BMI (Body Mass Index) 48.0 kg/m2 [place] Body Weight 160 lb Weight 147.420 kg BSA (Body Surface Area) 2.54 m2 06/28/2020 3:25pm BP Systolic 139 mmHg BP Diastolic 69 mmHg Height 69 inches 5'9" Weight 300.00 lb Stated BMI (Body Mass Index) 44.3 kg/m2 [place] Body Weight 160 lb Weight 136.080 kg BSA (Body Surface Area) 2.45 m2 Results Test Acquired Date Facility Test Result H/L Range Note Laboratory test finding 08/07/2020 [facility] Main Lab [address] [place] [address] [phone] Packed Cells TRANSFUSED PRODU <SEE NOTE> 1 Type & Screen -Incl Blood Type,Zera,AB SC 08/07/2020 [facility] Main Lab [address] [place] [address] [phone] Blood Type O POSITIVE Normal AB Screen (Indirect James)Vis POSITIVE Normal Laboratory test finding 08/07/2020 [facility] Main Lab [address] [place] [address] [phone] Antibody Identification Anti-I Normal 2 CBC With Differential 08/07/2020 [facility] Main Lab [address] [place] [address] [phone] White Blood Count 3.8 10 Low 4.0-10.0 [...] 36.0-66.0 Lymph % 9.9 % Low 24.0-44.0 [place] % 12.3 % High 0.0-5.0 Eos % 6.0 % High 0.0-3.0 Baso % 0.3 % Normal 0.0-1.0 Immature Granulocyte % 0.5 % Normal 0-3.0 Nucleated Red Blood Cell % 0.0 % Normal 0-0 Neutrophils # 2.7 10 Normal 1.5-8.5 Lymph # 0.4 10 Low 1.5-5.0 [place] # 0.5 10 Normal 0.0-0.8 Eos # 0.2 10 Normal 0.0-0.5 Baso # 0.0 10 Normal 0.0-0.2 Basic Metabolic Profile 08/07/2020 [facility] Main Lab [address] [place], [place] [phone] Glucose, Fasting 112 mg/dL High 70-100 Blood [...] 8.3 mg/dL Low 8.8-10.2 Renal Profile 08/06/2020 [facility] Main Lab [address] [place], [place] [phone] Glucose, Fasting 157 mg/dL High 70-100 Blood [...] GM/DL Low 3.2-5.2 CBC With Differential 08/06/2020 [facility] Main Lab [address] [place] [address] [phone] White Blood Count 3.9 10 Low 4.0-10.0 [...] 36.0-66.0 Lymph % 8.4 % Low 24.0-44.0 [place] % 12.0 % High 0.0-5.0 Eos % 3.8 % High 0.0-3.0 Baso % 0.5 % Normal 0.0-1.0 Immature Granulocyte % 0.3 % Normal 0-3.0 Nucleated Red Blood Cell % 0.0 % Normal 0-0 Neutrophils # 3.0 10 Normal 1.5-8.5 Lymph # 0.3 10 Low 1.5-5.0 [place] # 0.5 10 Normal 0.0-0.8 Eos # 0.2 10 Normal 0.0-0.5 Baso # 0.0 10 Normal 0.0-0.2 PT & Aptt 08/06/2020 [facility] Main Lab [address] [place] [address] [phone] Prothrombin Time 16.0 seconds High 12.5-14.3 Inr 1.25 Normal 5 Partial Thromboplastin Time 33.0 seconds Normal 24.2-38.5 Basic Metabolic Profile 08/06/2020 [facility] Main Lab [address] [place] [address] [phone] Glucose, Fasting 109 mg/dL High 70-100 Blood [...] mg/dL Low 8.8-10.2 Complete Blood Count 08/05/2020 [facility] Main Lab [address] [place] [address] [phone] White Blood Count 3.7 10 Low 4.0-10.0 [...] % Normal 0-0 Laboratory test finding 08/05/2020 [facility] Main Lab [address] [place] [address] [phone] Immature Platelet Fraction 1.1 % Normal 0.0-1 0.91 7 Comprehensive Metabolic Profil 08/05/2020 [facility] Main Lab [address] [place] [address] [phone] Glucose, Fasting 123 mg/dL High 70-100 Blood [...] & Screen -Incl Blood Type,Ezra,AB SC 08/05/2020 [facility] Main Lab [address] [place] [address] [phone] Blood Type O POSITIVE Normal AB Screen (Indirect James)Vis POSITIVE Normal Laboratory test finding 08/05/2020 [facility] Main Lab [address] [place] [address] [phone] Antibody Identification Anti-I Normal 9 Laboratory test finding 08/05/2020 [facility] Main Lab [address] [place] [address] [phone] Packed Cells TRANSFUSED PRODU <SEE NOTE> 10 Laboratory test finding 08/05/2020 [facility] Main Lab [address] [place] [address] [phone] Pathology Request For Service (SEE NOTE) 11 1 TRANSFUSED PRODUCT: PACKED C ELLS COUNT: 1 2 Anti-Jka 3 Units are mL/min/1.73 m2 Chronic Kidney Disease Staging per NKF: Stage I & II GFR >=60 Normal to Mildly Decreased Stage III GFR 30-59 Moderately Decreased Stage IV GFR 15-29 Severely Decreased Stage V GFR <15 Very Little GFR Left ESRD GFR <15 on BANK GUARD 4 Units are mL/min/1.73 m2 Chronic Kidney Disease Staging per NKF: Stage I & II GFR >=60 Normal to Mildly Decreased Stage III GFR 30-59 Moderately Decreased Stage IV GFR 15-29 Severely Decreased Stage V GFR <15 Very Little GFR Left ESRD GFR <15 on BANK GUARD 5 THERAPUTIC HUMAN INR VALUES INDICATIONS NORMAL [...] Little GFR Left ESRD GFR <15 on BANK GUARD 7 LAB DRAW 8 Units are mL/min/1.73 m2 Chronic Kidney Disease Staging per NKF: Stage I & II GFR >=60 Normal to Mildly Decreased Stage III GFR 30-59 Moderately Decreased Stage IV GFR 15-29 Severely Decreased Stage V GFR <15 Very Little GFR Left ESRD GFR <15 on BANK GUARD 9 Anti-Jka 10 TRANSFUSED PRODUCT: PACKED C [...] Provider Dx Diagnosis Office Visit 06/30/2020 1:00p [facility] Gerhard bowers JR, MD D50.9 Iron deficiency anemia, unspecified Office Visit 06/28/2020 3:15p [facility] Lina maxwell MD N18.4 Chronic kidney disease, stage 4 (severe) Assessments Date Code Description Provider 06/30/2020 D50.9 Iron deficiency anemia, unspecif ied Gerhard Aceves JR, MD 06/28/2020 N18.4 Chronic kidney disease, stage 4 (severe) Lina Jade MD Plan of Treatment Future Appointment(s):* 08/19/2020 1:00 pm - KRISTY Meyer at [facility] * 08/13/2020 10:15 am - Lina Jade MD at [facility] 06/30/2020 - Gerhard Aceves JR, MD* [...] to have his diuretics modified by his bilingual spanish inbound sales as well during this outpatient procedure. In any case patient understands risks as well as benefits associated with the upper and lower endoscopy would like to proceed with this as scheduled. Functional Status Description No Information Available Mental Status Description No Information Available Referrals Refer to Reason for Referral Status Appt Date Lina Jade MD EVAL AVF Closed 06/28/2020 6 [facility], [address] [place] [address] [phone]
--- OUTSIDE RECORDS SUMMARY | 2020-08-13 09:54 | CCD | Continuity of Care Document ---
Author Organization Unknown Address Unknown Phone Unavailable Care Team Providers Care Financial Administrative Assistant Name Role Phone Lanie Meng M.D. AUTM [phone] Gabriel Ng D.O. AUTM [phone] Problems Description No Active Problems Social History [...] Tablets hs Unknown Calcium 600 + D [id number] Tab lets once a day Unknown Torsemide [...] qd Unknown Vitamin D3 Ultra Potency 1.25mg (31839 Ut) Tablets take 1 tab by mouth qd Unknown Immunizations Description No Information Available Vital Signs Date Vital Result Comment 06/30/2020 1:25pm BP Systolic 108 mmHg BP Diastolic 56 mmHg Heart Rate 76 /min Height 69 inches 5'9" Weight 325.00 lb BMI (Body Mass Index) 48.0 kg/m2 [place] Body Weight 160 lb Weight 147.420 kg BSA (Body Surface Area) 2.54 m2 06/28/2020 3:25pm BP Systolic 139 mmHg BP Diastolic 69 mmHg Height 69 inches 5'9" Weight 300.00 lb Stated BMI (Body Mass Index) 44.3 kg/m2 [place] Body Weight 160 lb Weight 136.080 kg BSA (Body Surface Area) 2.45 m2 Results Test Acquired Date Facility Test Result H/L Range Note Laboratory test finding 08/07/2020 [facility] Main Lab [address] [place] [address] [phone] Packed Cells TRANSFUSED PRODU <SEE NOTE> 1 Type & Screen -Incl Blood Type,Ezra,AB SC 08/07/2020 [facility] Main Lab [address] [place] [address] [phone] Blood Type O POSITIVE Normal AB Screen (Indirect James)Vis POSITIVE Normal Laboratory test finding 08/07/2020 [facility] Main Lab [address] [place] [address] [phone] Antibody Identification Anti-I Normal 2 CBC With Differential 08/07/2020 [facility] Main Lab [address] [place] [address] [phone] White Blood Count 3.8 10 Low 4.0-10.0 [...] 36.0-66.0 Lymph % 9.9 % Low 24.0-44.0 [place] % 12.3 % High 0.0-5.0 Eos % 6.0 % High 0.0-3.0 Baso % 0.3 % Normal 0.0-1.0 Immature Granulocyte % 0.5 % Normal 0-3.0 Nucleated Red Blood Cell % 0.0 % Normal 0-0 Neutrophils # 2.7 10 Normal 1.5-8.5 Lymph # 0.4 10 Low 1.5-5.0 [place] # 0.5 10 Normal 0.0-0.8 Eos # 0.2 10 Normal 0.0-0.5 Baso # 0.0 10 Normal 0.0-0.2 Basic Metabolic Profile 08/07/2020 [facility] Main Lab [address] [place], [place] [phone] Glucose, Fasting 112 mg/dL High 70-100 Blood [...] 8.3 mg/dL Low 8.8-10.2 Renal Profile 08/06/2020 [facility] Main Lab [address] [place], [place] [phone] Glucose, Fasting 157 mg/dL High 70-100 Blood [...] GM/DL Low 3.2-5.2 CBC With Differential 08/06/2020 [facility] Main Lab [address] [place] [address] [phone] White Blood Count 3.9 10 Low 4.0-10.0 [...] 36.0-66.0 Lymph % 8.4 % Low 24.0-44.0 [place] % 12.0 % High 0.0-5.0 Eos % 3.8 % High 0.0-3.0 Baso % 0.5 % Normal 0.0-1.0 Immature Granulocyte % 0.3 % Normal 0-3.0 Nucleated Red Blood Cell % 0.0 % Normal 0-0 Neutrophils # 3.0 10 Normal 1.5-8.5 Lymph # 0.3 10 Low 1.5-5.0 [place] # 0.5 10 Normal 0.0-0.8 Eos # 0.2 10 Normal 0.0-0.5 Baso # 0.0 10 Normal 0.0-0.2 PT & Aptt 08/06/2020 [facility] nter Main Lab [address] [place] [address] [phone] Prothrombin Time 16.0 seconds High 12.5-14.3 Inr 1.25 Normal 5 Partial Thromboplastin Time 33.0 seconds Normal 24.2-38.5 Basic Metabolic Profile 08/06/2020 [facility] Main Lab [address] [place] [address] [phone] Glucose, Fasting 109 mg/dL High 70-100 Blood [...] mg/dL Low 8.8-10.2 Complete Blood Count 08/05/2020 [facility] Main Lab [address] [place] [address] [phone] White Blood Count 3.7 10 Low 4.0-10.0 [...] % Normal 0-0 Laboratory test finding 08/05/2020 [facility] Main Lab [address] [place] [address] [phone] Immature Platelet Fraction 1.1 % Normal 0.0-1 0.91 7 Comprehensive Metabolic Profil 08/05/2020 [facility] Main Lab [address] [place] [address] [phone] Glucose, Fasting 123 mg/dL High 70-100 Blood [...] & Screen -Incl Blood Type,Ezra,AB SC 08/05/2020 [facility] Main Lab [address] [place] [address] [phone] Blood Type O POSITIVE Normal AB Screen (Indirect James)Vis POSITIVE Normal Laboratory test finding 08/05/2020 [facility] Main Lab [address] [place] [address] [phone] Antibody Identification Anti-I Normal 9 Laboratory test finding 08/05/2020 [facility] Main Lab [address] [place] [address] [phone] Packed Cells TRANSFUSED PRODU <SEE NOTE> 10 Laboratory test finding 08/05/2020 [facility] Main Lab [address] [place] [address] [phone] Pathology Request For Service (SEE NOTE) 11 1 TRANSFUSED PRODUCT: PACKED C ELLS COUNT: 1 2 Anti-Jka 3 Units are mL/min/1.73 m2 Chronic Kidney Disease Staging per NKF: Stage I & II GFR >=60 Normal to Mildly Decreased Stage III GFR 30-59 Moderately Decreased Stage IV GFR 15-29 Severely Decreased Stage V GFR <15 Very Little GFR Left ESRD GFR <15 on ENDODONTIST 4 Units are mL/min/1.73 m2 Chronic Kidney Disease Staging per NKF: Stage I & II GFR >=60 Normal to Mildly Decreased Stage III GFR 30-59 Moderately Decreased Stage IV GFR 15-29 Severely Decreased Stage V GFR <15 Very Little GFR Left ESRD GFR <15 on ENDODONTIST 5 THERAPUTIC HUMAN INR VALUES INDICATIONS NORMAL [...] Little GFR Left ESRD GFR <15 on ENDODONTIST 7 LAB DRAW 8 Units are mL/min/1.73 m2 Chronic Kidney Disease Staging per NKF: Stage I & II GFR >=60 Normal to Mildly Decreased Stage III GFR 30-59 Moderately Decreased Stage IV GFR 15-29 Severely Decreased Stage V GFR <15 Very Little GFR Left ESRD GFR <15 on ENDODONTIST 9 Anti-Jka 10 TRANSFUSED PRODUCT: PACKED C [...] Provider Dx Diagnosis Office Visit 06/30/2020 1:00p [facility] Gerhard bowers JR, MD D50.9 Iron deficiency anemia, unspecified Office Visit 06/28/2020 3:15p [facility] Lina maxwell MD N18.4 Chronic kidney disease, stage 4 (severe) Assessments Date Code Description Provider 06/30/2020 D50.9 Iron deficiency anemia, unspecif ied Gerhard Aceves JR, MD 06/28/2020 N18.4 Chronic kidney disease, stage 4 (severe) Lina Jade MD Plan of Treatment Future Appointment(s):* 08/19/2020 1:00 pm - KRISTY Meyer at [facility] * 08/13/2020 10:15 am - Lina Jade MD at [facility] 06/30/2020 - Gerhard Acevse JR, MD* D50.9 Iron deficiency anemia, unspecified* [...] to have his diuretics modified by his [employer] school professional as well during this outpatient procedure. In any case patient understands risks as well as benefits associated with the upper and lower endoscopy would like to proceed with this as scheduled. Functional Status Description No Information Available Mental Status Description No Information Available Referrals Refer to Reason for Referral Status Appt Date Lina Jade MD EVAL AVF Closed 06/28/[address] [facility], [address] [place] [address] [phone]
--- OUTSIDE RECORDS SUMMARY | 2020-08-13 09:54 | CCD ---
Author Author [facility] Organization [facility] Address Unknown Phone Unavailable Care Team Providers [employer] Name Role Phone Gabriel Ng Unavailable PROBLEMS Type Condition ICD9-CM Code REA70-IP Code Onset Dates Condition S tatus SNOMED Code Notes Problem Other specified disorders of kidney and ureter N28 .89 Active 159420462 Problem Personal history of malignant neoplasm of prostate Z85.46 Active 744561289 Problem CKD (chronic kidney disease), stage 4 (severe) N18 .4 Active 960869751 Problem S/P right hemicolectomy Z90.49 Active 33602519 6 Problem Anticoagulant long-term use Z79.01 Active 7111 53196 Problem Other specified hypothyroidism E03.8 Active 4 5437648 Problem Type 2 diabetes mellitus with diabetic chronic kidney disease E11.22 Active 62967549 Problem Benign prostatic hyperplasia , unspecified whether lower urinary tract symptoms present N40.0 Active 261656233 Problem Hepatic cirrhosis, unspecified hepatic cirrhosis type K74.60 Active 34553351 Problem Hydroureter N13.4 Active 32940467 Problem Prostate cancer C61 Active 646356688 Problem Iron deficiency E61.1 Active 24204594 Problem Atrial fibrillation, unspecified type I48.91 Ac tive 97589159 Problem Chronic venous hypertension (idiopathic) with ulcer of left lower extremity I87.312 Active 014624285 Problem Non-pressure chronic ulcer o f other part of right lower leg with fat layer exposed L97.812 Active 608425275 Problem Hypothyroidism, unspecified type E03.9 Active 05733524 Problem Chronic venous hypertension (idiopathic) with ulcer of right lower extremity I87.311 Active 849215080 Problem Influenza vaccination declined Z28.21 Active 3 33055063 Problem Dyslipidemia E78.5 Active 910272184 Problem 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 Active 412178032 Problem Seborrheic dermatitis L21.9 Active 76901272 Problem Type 2 diabetes mellitus with other circulatory complicati on E11.59 Active 344984500 Problem Essential hypertension I10 Active 63306247 Problem Urge incontinence N39.41 Active 26938009 Problem Iron deficiency anemia, unspecified iron deficiency an emia type D50.9 Active 66011291 Problem Lymphedema I89.0 Active 209384409 Problem Benign prostatic hyperplasia with lower urinary tract symptoms N40.1 Active 861171832843905 Problem Gout, unspecified cause, unspecified chronicity, unspecified site M10.9 Active 09290063 Problem Non-pressure chronic ulcer o f other part of left lower leg with fat layer exposed L97.822 Active 815555737 Problem Other iron deficiency anemia D50.8 Active 875 28233 Problem Chronic kidney disease, stage 4 (severe) N18.4 Active 505124365 Problem Acute on chronic congestive heart failure, unspecified heart failure type I50.9 Active 163924324 Problem Stage 4 chronic kidney disease N18.4 Active 4 47866894 ALLERGIES Allergen (clinical drug ingredient) Drug/Non Drug Allergy do cumented on EMR Reaction Allergy Type Onset Date Status oysters Hives Non Drug Allergy Active ENCOUNTERS from 1938 to 2020-08-04 Encounter Location Date Provider Diagnosis [facility] [address] [place] [address] Jul, Gabriel Ng IMMUNIZATIONS Vaccine Route Administration Date [...] Education Language: Question Answer Notes Languages spoken: Cymro Catholic: Question Answer Notes Catholic 03 [employer] Drug and Alcohol Question Answer Notes Total [...] a day Active Vitamin D3 50 MCG (2000 UT) [...] Information RESULTS No Results REASON FOR VISIT Preop Note MEDICAL (GENERAL) HISTORY Type Description Date Medical History CKDIV: Chronic kidney diseas e, meds from nephro include torsemide, vitamin B12, with furosemide and lisinopril and spironolactone recently stopped by the shingle sawyer; November 2017 switched by nephrology to torsemide [...] medical center - hematuria 09/2018 Hospitalization History [facility] 12/22/18-12/25/18 Hospitalization History Symptomatic Anemia - [facility] 05/31-05/23 Goals Section No Information Health Concerns No Information MEDICAL EQUIPMENT No Information MENTAL STATUS No Information FUNCTIONAL STATUS No Information ASSESSMENTS No Information PLAN OF TREATMENT Next Appt Details Provider Name:Rosalie Matthews Zulay, 2020-11- 4 10:45:00 AM, [address], [place], [address], Insurance Providers Payer Name Payer Address Payer Phone Insured Name Patient Relati onship to Insured Coverage Start Date Coverage End Date [facility] [address] [address] [facility] [id number] REBECCA JAUREGUI self
--- OUTSIDE RECORDS SUMMARY | 2020-08-13 09:55 | CCD ---
Author Author [facility] Organization [facility] Address Unknown Phone Unavailable Care Team Providers Care Filter Operator Name Role Phone Marisol Jade MD Unavailable [...] Roe Junior MD, FACS Unavailable Unavailable Foreman Kne, Roe Junior MD, FACS Unavailable Unavailable Foreman Ken, Roe Junior MD, FACS Unavailable Unavailable Foreman Ken, Roe Juinor MD, FACS Unavailable Unavailable Foreman Ken, Roe [...] MD, FACS Unavailable Unavailable Kocan, J Melissa SHOE ASSOCIATE Unavailable Unavailable Kocan, J Melissa SHOE ASSOCIATE Unavailable Unavailable Kocan, J Melissa SHOE ASSOCIATE Unavailable Unavailable Kocan, J Melissa SHOE ASSOCIATE Unavailable Unavailable Kocan, J Melissa SHOE ASSOCIATE Unavailable Unavailable Kocan, J Melissa SHOE ASSOCIATE Unavailable Unavailable Kocan, J Melissa SHOE ASSOCIATE Unavailable Unavailable Kocan, J Melissa SHOE ASSOCIATE Unavailable Unavailable Kocan, J Melissa SHOE ASSOCIATE Unavailable Unavailable Kocan, J Melissa SHOE ASSOCIATE Unavailable Unavailable Kocan, J Melissa SHOE ASSOCIATE Unavailable Unavailable Kocan, J Melissa SHOE ASSOCIATE Unavailable Unavailable Kocan, J Melissa SHOE ASSOCIATE Unavailable Unavailable Raymundo Aceves JR, MD Unavailable Unavailable Raymundo Aceves JR, MD Unavailable Unavailable Raymundo Aceves JR, MD Unavailable Unavailable Raymundo Aceves JR, MD Unavailable Unavailable Raymundo Aceves JR, MD Unavailable Unavailable Raymundo Aceves JR, MD Unavailable Unavailable Raymundo Aceves JR, MD Unavailable Unavailable Raymundo Aceves JR, MD Unavailable Unavailable Raymundo Aceves JR, MD Unavailable Unavailable Raymundo Aceves JR, MD Unavailable Unavailable Raymundo Aceves JR, MD Unavailable Unavailable Raymundo Aceves JR, MD Unavailable Unavailable Raymundo Aceves JR, MD Unavailable Unavailable Raymundo Aceves JR, MD Unavailable Unavailable Raymundo Aceves JR, MD Unavailable Unavailable Raymundo Aceves JR, MD Unavailable Unavailable Raymundo Aceves JR, MD Unavailable Unavailable Raymundo Aceves JR, MD Unavailable Unavailable Raymundo Aceves JR, MD Unavailable Unavailable Raymundo Aceves JR, MD Unavailable Unavailable Raymundo Aceves JR, MD Unavailable Unavailable Raymundo Aceves JR, MD Unavailable Unavailable Raymundo Aceves JR, MD Unavailable Unavailable Raymundo Aceves JR, MD Unavailable Unavailable Raymundo Aceves JR, MD Unavailable Unavailable Raymundo Aceves JR, MD Unavailable Unavailable Raymundo Aceves JR, MD Unavailable Unavailable Raymundo Aceves JR, MD Unavailable Unavailable Raymundo Aceves JR, MD Unavailable Unavailable Raymundo Aceves JR, MD Unavailable Unavailable Raymundo Aceves JR, MD Unavailable Unavailable Raymundo Aceves JR, MD Unavailable Unavailable Raymundo Aceves JR, MD Unavailable Unavailable Raymundo Aceves JR, MD Unavailable Unavailable Raymundo Aceves JR, MD Unavailable Unavailable Raymundo Aceves JR, MD Unavailable Unavailable Raymundo Aceves JR, MD Unavailable Unavailable Raymundo Aceves JR, MD Unavailable Unavailable Raymundo Aceves JR, MD Unavailable Unavailable Raymundo Aceves JR, MD Unavailable Unavailable Raymundo Aceves JR, MD Unavailable Unavailable Raymundo Aceves JR, MD Unavailable Unavailable Raymundo Aceves JR, MD Unavailable Unavailable Raymundo Aceves JR, MD Unavailable Unavailable Raymundo Aceves JR, MD Unavailable Unavailable Raymundo Aceves JR, MD Unavailable Unavailable Raymundo Aceves JR, MD Unavailable Unavailable Raymundo Aceves JR, MD Unavailable Unavailable Raymundo Aceves JR, MD Unavailable Unavailable Raymundo Aceves JR, MD Unavailable Unavailable Raymundo Aceves JR, MD Unavailable Unavailable Raymundo Aceves JR, MD Unavailable Unavailable Raymundo Aceves JR, MD Unavailable Unavailable Raymundo Aceves JR, MD Unavailable Unavailable Raymundo Aceves JR, MD Unavailable Unavailable Raymundo Aceves JR, MD Unavailable Unavailable Liudmila, [place] MD Unavailable Unavailable Liudmila, Popeye MD Unavailable Unavailable Liudmila, Popeye MD Unavailable Unavailable Liudmila, [place] MD Unavailable Unavailable Liudmila, Popeye MD Unavailable Unavailable Liudmila, [place] MD Unavailable Unavailable Liudmila, Popeye MD Unavailable Unavailable Liudmila, [place] MD Unavailable Unavailable Liudmila, [place] MD Unavailable Unavailable Liudmila, Popeye MD Unavailable Unavailable Liudmila, [place] MD Unavailable Unavailable Liudmila, [place] MD Unavailable Unavailable Liudmila, [place] MD Unavailable Unavailable Liudmila, Popeye MD Unavailable Unavailable Liudmila, Popeye MD Unavailable Unavailable Liudmila, Popeye MD Unavailable Unavailable Liudmila, [place] MD Unavailable Unavailable Liudmila, [place] MD Unavailable Unavailable Liudmila, Popeye MD Unavailable Unavailable Liudmila, Popeye MD Unavailable Unavailable Liudmila, Popeye MD Unavailable Unavailable Liudmila, Popeye MD Unavailable Unavailable Liudmila, Popeye MD Unavailable Unavailable Liudmila, [place] MD Unavailable Unavailable Liudmila, Popeye MD Unavailable Unavailable Liudmila, [place] MD Unavailable Unavailable Liudmila, Popeye MD Unavailable Unavailable Liudmila, [place] MD Unavailable Unavailable Liudmila, [place] MD Unavailable Unavailable Liudmila, Popeye MD Unavailable Unavailable Liudmila, Popeye MD Unavailable Unavailable Liudmila, Popeye MD Unavailable Unavailable Liudmila, Popeye MD Unavailable Unavailable Liudmila, Popeye MD Unavailable Unavailable Liudmila, [place] MD Unavailable Unavailable Liudmila, [place] MD Unavailable Unavailable Liudmila, Popeye MD Unavailable Unavailable Liudmila, Popeye MD Unavailable Unavailable Liudmila, Popeye MD Unavailable Unavailable Liudmila, Popeye MD Unavailable Unavailable Liudmila, Popeye MD Unavailable Unavailable Liudmila, Popeye MD Unavailable Unavailable Liudmila, Popeye MD Unavailable Unavailable Liudmila, Popeye MD Unavailable Unavailable Liudmila, Popeye MD Unavailable Unavailable Liudmila, [place] MD Unavailable Unavailable MARC NUNEZ MD Unavailable [...] Unavailable Unavailable MAYRA, TRAN MD Unavailable Unavailable SYSTEM IN, NOT IN PROVIDER Unavailable Unavailable Re-disclosure Warning The records that [...] is protected by Article 27-F of the [place] State Public Health law. If you continue you may have access to information: Regarding HIV / AIDS; Provided by facilities licensed or operated by the [facility] Office of Mental Health; or Provided by the [facility] Office for People With Developmental Disabilities. If such information is present, then the following [facility] mandated warning applies: This information has been [...] law may result in a fine or residential sentence or both. A general authorization for the release of medical or other information is NOT sufficient authorization for further disc losure. Allergies and Adverse Reactions Type Description Substance Reaction Status Data Source(s ) Allergy to substance No Known Allergies No known allergies (situation ) NAHOMI (Vernon Ken MD [facility]) Allergy to substance No Known Allergies No known allergies (situation ) NAHOMI (Vernon Ken MD [facility]) oysters oysters oysters Hives Active eCW1 ([facility]) oysters oysters oysters Hives Active eCW1 ([facility]) Allergy to substance No Known Allergies No known allergies (situation ) NAHOMI (Vernon Ken MD [facility]) oysters oysters oysters Hives Active eCW1 ([facility]) Family History Family Member Name Family Member Gender Family Member Status Date o f Status Description Data Source(s) Unknown Unknown Problem MEDENT ([facility], ) Unknown Unknown Problem MEDENT ([facility], ) Unknown Unknown Problem MEDENT ([facility], ) Kidney father Unknown Unknown Encounters Encounter Providers Location Date Indications Data Source(s ) Outpatient Referrer: PROVIDER SYSTEM [place] 08/11/2020 0 3:05:00 PM EST newly diagnosed sigmoid CA, GI bleed [facility] newly diagnosed sigmoid CA, GI bleed [place] [address] [facility] [place] [address] 08/10/2020 12:00:00 AM EST eCW1 ([facility]) Unknown [address] [facility] [place] [address] 08/03/2020 12:00:00 AM EST eCW1 ([facility]) Outpatient [address] [facility] [place] [address] 07/28/2020 12:00:00 AM EST eCW1 ([facility]) Unknown [address] [facility] [place] [address] 07/04/2020 12:00:00 AM EST eCW1 ([facility]) Unknown [address] [facility] [place] [address] 07/04/2020 12:00:00 AM EST eCW1 ([facility]) Outpatient Attender: Gerhard Huffman/Metcalfe/William/Rein dl 06/30/2020 12:00:00 PM EST MEDENT ([facility]) Outpatient Attender: Lina Huffman/Metcalfe/William/ Reindl 06/28/2020 02:15:00 PM EST MEDENT ([facility]) Outpatient [address] [facility] [place] [address] 06/22/2020 12:00:00 AM EST eCW1 ([facility]) [facility] [address] [facility] [place] [address] 06/15/2020 12:00:00 AM EST eCW1 ([facility]) Outpatient [address] [facility] [place] [address] 06/10/2020 12:00:00 AM EST eCW1 ([facility]) Unknown [address] [facility] [place] [address] 06/01/2020 12:00:00 AM EST eCW1 ([facility]) Unknown [address] [facility] [place] [address] 06/01/2020 12:00:00 AM EST eCW1 ([facility]) Unknown [address] [facility] [place] [address] 05/31/2020 12:00:00 AM EST eCW1 ([facility]) Outpatient [address] [facility] [place] [address] 05/25/2020 12:00:00 AM EST eCW1 ([facility]) Outpatient Attender: Melissa Bella RNPReferrer: Melissa Prado NP SJP.JASWANT-SJP.JASWANT 04/20/2020 11:03:17 AM EDT - 04/20/2020 01:49:56 PM EDT [facility] Outpatient<td ID="encounterTypeDescripti onID0">7 Month Follow-Up</td><td>Vernon Paul MD, SHAMIKA</td><td>Vernon Paul MD [facility]</td><td>03/18/2020</td><td>1:02PM</td><td>1:47PM</td><td><content ID="encounterDiagnosisID0-0">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</content>, <content ID="encounterDiagnosisID0-1"> Assessment of Taking Medication For Diabetes Long-term Use of Oral Hypoglycemics</content>, <content ID="encounterDiagnosisID0-2">Macular Degeneration Nonexudative Bilateral Early Dry Stage</content>, <content ID="encounterDiagnosisID0-3">Essential Hypertension</content>, <content ID="encounterDiagnosisID0-4">History of Nicotine Dependence</content>, <content ID="encounterDiagnosisID0-5">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</content>, <content ID="encounterDiagnosisID0-6">Pseudophakia</content></td> Attender: Vernon Ken MD, SHAMIKA Paul MD [facility] 03/18/2020 01:02:00 PM EDT - 03/18/2020 01:47:00 [...] Without Macular Edema NAHOMI (Vernon Ken MD [facility]) Macular Degeneration Nonexudative Bilate ral Early Dry [...] Macular Edema Outpatient Attender: MARC NUNEZ MD SJP.JASWANT-SJP.JASWANT 0 09:26:46 AM EDT - 02/18/2020 10:53:07 AM EDT [address] [address] 12/21/2019 12:00:00 AM EDT eCW1 ([facility]) [facility] [address] [place] [address] [place] [address] 12/16/2019 12:00:00 AM EDT eCW1 ([facility]) [facility] [address] [place] [address] [place] [address] 12/04/2019 12:00:00 AM EDT eCW1 ([facility]) [address] [place] [address] 10/29/2019 12:00:00 AM EDT eCW1 ([facility]) [address] [place] [address] 10/27/2019 12:00:00 AM EDT eCW1 ([facility]) Outpatient Referrer: Popeye Nur MD 08/14/2019 01:50:00 PM EST [facility] [address] [facility] [place] [address] 08/14/2019 12:00:00 AM EST eCW1 ([facility]) [facility] [address] [facility] [place] [address] 08/11/2019 12:00:00 AM EST eCW1 ([facility]) [facility] [address] [facility] [address] 08/11/2019 12:00:00 AM EST eCW1 ([facility]) Outpatient<td ID="encounterTypeDescripti onID1">7 Month Follow-Up</td><td>Vernon Paul MD, FACS</td><td>Vernon Paul MD [facility]</td><td>07/31/2019</td><td>9:26AM</td><td>10:08AM</td><td><content ID="encounterDiagnosisID1-0">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</content>, <content ID="encounterDiagnosisID1-1">Macular Degeneration Nonexudative Bilateral Early Dry Stage</content>, <content ID="encounterDiagnosisID1-2">Essential Hypertension</content>, <content ID="encounterDiagnosisID1-3">History of Nicotine Dependence</content>, <content ID="encounterDiagnosisID1-4">Taking Medication For Diabetes Long-term Use of Oral Hypoglycemics</content>, <content ID="encounterDiagnosisID1-5">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</content>, <content ID="encounterDiagnosisID1-6">Pseudophakia</content></td> Attender: Vernon Ken MD, FACS Vernon Paul MD [facility] 07/31/2019 09:26:00 AM EST - 07/31/2019 10:08:00 [...] Without Macular Edema NAHOMI (Vernon Ken MD [facility]) Taking Medication For Diabetes Long-term Use of [...] Retinopathy Mild Non prolif Without Macular Edema [address] [address] 07/29/2019 12:00:00 AM EST eCW1 ([facility]) [address] [address] 07/29/2019 12:00:00 AM EST [facility] [address] [address] 07/07/2019 12:00:00 AM EST [facility]CW1 [facility] [address] [address] 06/30/2019 12:00:00 AM EST eCW1 ([facility]) [address] [address] 06/27/2019 12:00:00 AM EST eCW1 ([facility]) Medications Medication Brand Name Start Date Product Form Dose Route Admi nistrative Instructions Pharmacy Instructions Status Indications Reaction Description Data Source(s) Tamsulosin hydrochloride 0.4 MG Oral Capsule Tamsulosi n HCl 0.4 MG Tamsulosin HCl 0.4 MG 07/04/2020 12:00:00 AM EST 1.0 {capsule} active Tamsulosin HCl 0.4 MG eCW1 ([facility]) Tamsulosin hydrochloride 0.4 MG Oral Capsule Tamsulosi n HCl 0.4 MG Tamsulosin HCl 0.4 MG 07/04/2020 12:00:00 AM EST 1.0 {capsule} active Tamsulosin HCl 0.4 MG eCW1 ([facility]) Tamsulosin hydrochloride 0.4 MG Oral Capsule Tamsulosi n HCl 0.4 MG Tamsulosin HCl 0.4 MG 07/04/2020 12:00:00 AM EST 1.0 {capsule} active Tamsulosin HCl 0.4 MG eCW1 ([facility]) Tamsulosin hydrochloride 0.4 MG Oral Capsule Tamsulosi n HCl 0.4 MG Tamsulosin HCl 0.4 MG 07/04/2020 12:00:00 AM EST 1.0 {capsule} active Tamsulosin HCl 0.4 MG eCW1 ([facility]) Tamsulosin hydrochloride 0.4 MG Oral Capsule Tamsulosi n HCl 0.4 MG Tamsulosin HCl 0.4 MG 07/04/2020 12:00:00 AM EST 1.0 {capsule} active Tamsulosin HCl 0.4 MG eCW1 ([facility]) Sucralfate 1000 MG Oral Tablet Sucralfate 06/30/2020 12:00:00 AM EST active MEDENT ([facility] ) Glucometer UNK 07/29/2019 12:00:00 AM EST active Glucometer eCW1 ([facility]) Glucometer UNK 07/29/2019 12:00:00 AM EST active Glucometer eCW1 ([facility]) Glucometer UNK 07/29/2019 12:00:00 AM EST active E11.9 check sugars once a day eCW1 ([facility]) Glucometer UNK 07/29/2019 12:00:00 AM EST active Glucometer eCW1 ([facility]) Glucometer UNK 07/29/2019 12:00:00 AM EST active Glucometer eCW1 ([facility]) Glucometer UNK 07/29/2019 12:00:00 AM EST active E11.9 check sugars once a day eCW1 ([facility]) Glucometer UNK 07/29/2019 12:00:00 AM EST active Glucometer eCW1 ([facility]) Glucometer UNK 07/29/2019 12:00:00 AM EST active Glucometer eCW1 ([facility]) Glucometer UNK 07/29/2019 12:00:00 AM EST active Glucometer eCW1 ([facility]) Glucometer UNK 07/29/2019 12:00:00 AM EST active Glucometer eCW1 ([facility]) Glucometer UNK 07/29/2019 12:00:00 AM EST active Glucometer eCW1 ([facility]) Glucometer UNK 07/29/2019 12:00:00 AM EST active E11.9 check sugars once a day eCW1 ([facility]) Glucometer UNK 07/29/2019 12:00:00 AM EST active Glucometer eCW1 ([facility]) Glucometer UNK 07/29/2019 12:00:00 AM EST active Glucometer eCW1 ([facility]) 24 HR Glipizide 2.5 MG Extended Release Oral Tablet Gl ipiZIDE ER 2.5 MG GlipiZIDE ER 2.5 MG 07/07/2019 12:00:00 AM EST active 1 tablet with breakfast eCW1 ([facility]) 24 HR Glipizide 2.5 MG Extended Release Oral Tablet Gl ipiZIDE ER 2.5 MG GlipiZIDE ER 2.5 MG 07/07/2019 12:00:00 AM EST active 1 tablet with breakfast eCW1 ([facility]) 24 HR Glipizide 2.5 MG Extended Release Oral Tablet Gl ipiZIDE ER 2.5 MG GlipiZIDE ER 2.5 MG 07/07/2019 12:00:00 AM EST active 1 tablet with breakfast eCW1 ([facility]) Insurance Providers Payer name Policy type / Coverage type Policy ID Covered libertarian ID Covered libertarian's relationship to naik Policy Naik Plan Information WELLCARE [id number] SP [id number] WELLCARE [id number] SP [id number] WELLCARE [id number] SP [id number] WELLCARE O [id number] S [id number] MEDICARE [id number] SP [id number] WELLCARE MEDICARE [id number] Francisca 16 [id number] WELLCARE [id number] SP [id number] WELLCARE [id number] SP [id number] WELLCARE [id number] SP [id number] WELLCARE O [id number] S [id number] TODAYS OPTIONS [id number] SP [id number] MEDICARE [id number] SP [id number] A ANSI-Medicare Part B [id number] ANS-Health Maintenance Organization ( O) [id number] ANSI-Medicare Part B [id number] ANS-Health Maintenance Organization ( O) [id number] ANSI-Medicare Part B [id number] ANS-Health Maintenance Organization ( O) [id number] WELLCARE [id number] ANSI-Medicare Part B [id number] ANS-Health Maintenance Organization ( O) [id number] ANS-Health Maintenance Organization ( O) [id number] ANSI-Medicare Part B [id number] ANS-Health Maintenance Organization ( O) [id number] ANSI-Medicare Part B [id number] ANSI-Medicare Part B [id number] ANS-Health Maintenance Organization ( O) [id number] ANSI-Medicare Part B [id number] ANSI-Health Maintenance Organization ( O) [id number] ANSI-Health Maintenance Organization ( O) [id number] ANSI-Medicare Part B [id number] ANSI-Health Maintenance Organization ( O) [id number] ANSI-Medicare Part B [id number] ANSI-Medicare Part B [id number] ANSI-Health Maintenance Organization ( O) [id number] ANSI-Medicare Part B [id number] ANSI-Health Maintenance Organization ( O) [id number] ANSI-Medicare Part B [id number] ANSI-Health Maintenance Organization ( O) [id number] ANSI-Medicare Part B [id number] [facility]-Health Maintenance Organization ( O) [id number] [facility]-Health Maintenance Organization ( O) [id number] ANSI-Medicare Part B [id number] [place] [place] [id number] [id number] [facility]-Health Maintenance Organization ( O) [id number] ANSI-Medicare Part B [id number] [facility]-Health Maintenance Organization ( O) [id number] ANSI-Medicare Part B [id number] ANSI-Medicare Part B [id number] [facility]-Medicare Part B [id number] ANS-Medicare Part B [id number] ANSI-Medicare Part B [id number] TOD[employer] OPTIONS [id number] SP [id number] [facility]-Medicare Part B [id number] [facility] [id number] [facility]-Medicare Part B [id number] ANS-Medicare Part B [id number] TOD[employer] OPTIONS [id number] SP [id number] Today's Options Medicare Commercial [id number] Self [id number] Today's Options Medicare Commercial [id number] Self [id number] TODA[employer] OPTIONS [id number] SP [id number] TODAYS OPTIONS [id number] SP [id number] Today's Options Medicare Commercial [id number] Self [id number] TODAYS OPTIONS [id number] SP [id number] Today's Options Medicare Commercial [id number] Self [id number] Today's Options Medicare Commercial [id number] Self [id number] Today's Options Medicare Commercial [id number] Self [id number] MEDICARE BLUE PPO [id number] SP [id number] Today's Options Medicare Commercial Self MEDICARE BLUE PPO 306 [id number] SP [id number] EXCELLUS BCBS B [id number] S [id number] EXCELLUS BCBS MCR HMO [facility] HMO [id number] S [id number] Medicare Blue Ppo [facility] (HMO) Self MEDICARE BLUE PPO 306 [id number] SP [id number] Problems, Conditions, and Diagnoses Code Display Name Description Problem Type Effective Dates Data Source(s) N40.1 [id number] Benign prostatic hyp erplasia with lower urinary tract symptoms Problem 07/04/2020 12:00:00 AM EST [email or web address] ([facility]) N18.4 [id number] Stage 4 chronic kidney disease Problem 06/10/2020 12:00:00 AM EST eCW1 ([facility]) I50.9 [id number] Acute on chronic con gestive heart failure, unspecified heart failure type Problem 06/10/2020 12:00:00 AM EST eCW1 ([facility]) D50.9 [id number] Iron deficiency anemia, unspecif ied iron deficiency anemia type Problem 06/10/2020 12:00:00 AM EST eCW1 ([facility]) [id number] Macular Degeneration Nonexudative Bilate ral Early Dry 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 Problem 12:00:00 AM EST NAHOMI (Vernon Ken [facility]) [id number] Taking Medication For Diabetes Long-term Use of Oral Hypoglycemics Taking Medication For Diabetes Long-term Use of Oral Hypoglycemics Finding 07/31/2019 12:00:00 AM EST NAHOMI (Vernon Ken [facility]) [id number] Macular Degeneration Nonexudative Bilate ral Early Dry 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 Problem 12:00:00 AM EST NAHOMI (Vernon Ken [facility]) [id number] Taking Medication For Diabetes Long-term Use of Oral Hypoglycemics Taking Medication For Diabetes Long-term Use of Oral Hypoglycemics Finding 07/31/2019 12:00:00 AM [facility] (Vernon Ken [facility]) H35.3131 Macular Degeneration Nonexudative Bilate ral Early Dry 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 Problem 12:00:00 AM [facility] (Vernon Ken [facility]) Z79.84 Taking Medication For Diabetes Long-term Use of Oral Hypoglycemics Taking Medication For Diabetes Long-term Use of Oral Hypoglycemics Finding 07/31/2019 12:00:00 AM [facility] (Vernon Ken [facility]) N18.4 [id number] Chronic kidney disease, stage 4 (severe) Problem 07/29/2019 12:00:00 AM [facility] eCW1 ([facility]) newly diagnosed sigmoid CA, GI bleed newly diagn osed sigmoid CA, GI bleed Diagnosis 08/11/2020 03:05:00 PM [facility] R06.02 Shortness of breath Shortness of breath Diagnosis 0 04/20/2020 11:03:17 AM EDT [facility] E66.9 Obesity, unspecified Obesity, unspecified Diagnosis 04/20/2020 11:03:17 AM EDT [facility] E03.9 Hypothyroidism, unspecified Hypothyroidism, unspecifie d Diagnosis 04/20/2020 11:03:17 AM EDT [facility] N18.9 Chronic kidney disease, unspecified Chronic kidn ey disease, unspecified Diagnosis 04/20/2020 11:03:17 AM EDT [facility] I10 Essential (primary) hypertension Essential (primary) h ypertension Diagnosis 04/20/2020 11:03:17 AM EDT [facility] I48.91 Unspecified atrial fibrillation Unspecified atri al fibrillation Diagnosis 04/20/2020 11:03:17 AM EDT [facility] M10.9 Gout, unspecified Gout, unspecified Diagnosis 02/18/2020 09:26:46 AM EDT [facility] E11.9 Type 2 diabetes mellitus without complic ations Type 2 diabetes mellitus without complic Diagnosis 02/18/2020 09:26:46 AM EDT [facility] 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, ) Colonoscopy Flexible Proximal To Splenic Flexure W/Biopsy Si ngle/ 08/05/2020 12:00:00 AM EST [facility] Colonoscopy,W/Directed Submucosal Injections, Any Substance 08/05/2020 12:00:00 AM EST [facility] ([facility] ) ECG ROUTINE ECG W/LEAST 12 LDS W/I&R 05/25/2020 12:00: 00 AM EST eCW1 ([facility]) Intermediate Eye Exam Established Patient Intermediate Eye Exam Established Patient 03/18/2020 12:00:00 AM EDLuz COMER (Rickie Ken MD [facility]) Intermediate Eye Exam Established Patient Intermediate Eye Exam Established Patient 03/18/2020 12:00:00 AM MARIELLA COMER (Rickie Ken MD [facility]) Office Visit, Est Pt., Level 2 FC 12/16/2019 12:00:00 AM EDT eCW1 ([facility]) Office Visit, Est Pt., Level 3 PC 12/16/2019 12:00:00 AM EDT eCW1 ([facility]) US URINE CAPACITY MEASURE 12/16/2019 12:00:00 AM EDT eCW1 ([facility]) Scodi Retina, with interpretation and re port (WAIVER OF LIABILITY ON FILE (ABN)) Scodi Retina, with interpretation and re port (WAIVER OF LIABILITY ON FILE (ABN)) 07/31/2019 12:00:00 AM EST NAHOMI (Rickie Ken [facility]) Comprehensive eye exam established patient (Signi/Sep Eval. & Man.) Comprehensive eye exam established patient (Signi/Sep Eval. & Man.) 07/31/2019 12:00:00 AM EST NAHOMI (Vernon Ken [facility]) Reported medical history : Prostate Canc er, CAD, Kidney Failure (unsure of what stage) Reported medical history : Prostate Canc er, CAD, Kidney Failure (unsure of what stage) 07/31/2019 12:00:00 AM EST NAHOMI (Rickie id Roe Ken MD [facility]) No recent change in medical history No recent change in medi davon history 07/31/2019 12:00:00 AM EST NAHOMI (Vernon cueva MD [facility]) History of type 2 diabetes mellitus Dx: 2007, FBS: does not check currently, A1C: unsure of his last result with Dr. Edwards History of type 2 diabetes mellitus Dx: 2007, FBS: does not check currently, A1C: unsure of his last result with Dr. Edwards 07/31/2019 12:00:00 AM EST NAHOMI (Bonilla Ken MD [facility]) History of the retina was abnormal 12/27/2018 History o f the retina was abnormal 12/27/2018 07/31/2019 12:00:00 AM EST NAHOMI (Rickie Ken [facility]) COMPUTERIZED OPHTHALMIC IMAGING RETINA Scodi Retina, w ith interpretation and report (GA) 07/31/2019 12:00:00 AM EST NAHOMI ([facility]ie Ken [facility]) Comprehensive eye exam established patient (25) Erika hernandezive eye exam established patient (25) 07/31/2019 12:00:00 AM EST NAHOMI ([facility]on Ken [facility]) Results ID Date Data Source [id number] 08/11/2020 05:27:00 AM EST MEDENT ([facility], ) Name Value Range Interpretation Code Description Data Niru rce(s) Supporting Document(s) Creatinine For GFR 2.80 mg/dL 0.70-1.30 Above high normal MEDENT ([facility], ) Glucose, Fasting 123 mg/dL 70-100 Above high normal M EDENT ([facility]) Blood Urea Nitrogen 90 mg/dL 7-18 Above high normal MEDENT ([facility]) Glomerular Filtration Rate 23.2 Below low normal MED[facility] ([facility]) <content>Units are mL/min/1.73 m2</content>
<content></content>
<content>Chronic Kidney Disease Staging per NKF:</content>
<content></content>
<content>Stage I & II GFR >=60 Normal to Mildly Decreased</content>
<content>Stage III GFR 30-59 Moderately Decreased</content>
<content>Stage IV GFR 15-29 Severely Decreased</content>
<content>Stage V GFR <15 Very Little GFR Left</content>
<content>ESRD GFR <15 on ORTHOTIC AIDE</content>
<content></content> Sodium Level 137 meq/L 136-145 Normal (applies to non-numeric res ults) MEDENT ([facility]) Chloride Level 102 meq/L 98-107 Normal (applies to non-numeric r esults) [facility] ([facility]) Carbon Dioxide Level 29 meq/L 21-32 Normal (applies to non-num jessa results) [facility] ([facility]) Potassium Serum 4.2 meq/L 3.5-5.1 Normal (applies to non-numeric results) [facility] Anion Gap 6 meq/L 8-16 Below low normal MEDENT ( [facility]) Calcium Level 8.7 mg/dL 8.8-10.2 Below low normal MEDEN T ([facility]) ID Date Data Source [id number] 08/11/2020 05:27:00 AM EST MEDENT ([facility]) Name Value Range Interpretation Code Description Data Niru rce(s) Supporting Document(s) White Blood Count 6.3 10 4.0-10.0 Normal (applies to non-numeri c results) [facility] ([facility]) Hemoglobin 9.2 g/dL 13.5-17.5 Below low normal MED[facility] ( [facility]) Red Blood Count 3.08 10 4.30-6.10 Below low normal MED ENT ([facility]) Hematocrit 30.8 % 42.0-52.0 Below low normal MED[facility] ( [facility]) Mean Corpuscular Hemoglobin 29.9 pg 27.0-33.0 Norm al (applies to non-numeric results) [facility] ([facility]) Mean Corpuscular Volume 100.0 fl 80.0-96.0 Above high normal [facility] ([facility]) Mean Corpuscular HGB Conc 29.9 g/dL 32.0-36.5 Below low normal [facility] ([facility]) Red Cell Distribution Width 18.8 % 11.5-14.5 Above high normal [facility] ([facility]) Lymph % 4.1 % 24.0-44.0 Below low normal [facility] ( [facility]) Platelet Count, Automated 101 10 150-450 Below low normal MED[facility] ([facility]) Neutrophils % 79.4 % 36.0-66.0 Above high normal MEDE NT ([facility]) Eos % 3.6 % 0.0-3.0 Above high normal [facility] ([facility]) Baso % 0.3 % 0.0-1.0 Normal (applies to non-numeric resul ts) [facility] ([facility]) Creek % 12.0 % 0.0-5.0 Above high normal [facility] ([facility]) Nucleated Red Blood Cell % 0.0 % 0-0 Normal (applies to n on-numeric results) [facility] ([facility]) Immature Granulocyte % 0.6 % 0-3.0 Normal (applies to non-n umeric results) [facility] ([facility]) Neutrophils # 5.0 10 1.5-8.5 Normal (applies to non-numeric re sults) [facility] ([facility]) Lymph # 0.3 10 1.5-5.0 Below low normal MEDENT ( [facility]) Creek # 0.8 10 0.0-0.8 Normal (applies to non-numeric resul ts) [facility] Baso # 0.0 10 0.0-0.2 Normal (applies to non-numeric resul ts) [facility] ([facility]) Eos # 0.2 10 0.0-0.5 Normal (applies to non-numeric resul ts) [facility] ([facility]) ID Date Data Source [id number] 08/10/2020 08:05:00 PM EST [facility] ([facility]) Name Value Range Interpretation Code Description Data Niru rce(s) Supporting Document(s) Troponin I.cardiac [Mass/volume] in Serum or Plasma 0.03 ng/mL Significant change down [facility] ([facility]) <content>Troponin I Reference Interval f or Siemens Snyder LOCI:</content>
<content></content>
<content>99th Percentile= 0.00-0.045 ng/ml</content>
<content></content>
<content>Risk Stratification:</content>
<content><= 0.10 ng/ml Decreased Risk for Adverse Clinical</content>
<content>Events.</content>
<content>0.10-1.50 ng/ml Increased Risk for Adverse Clinical</content>
<content>Events. Evaluation of additional</content>
<content>criterion and/or repeat testing in 2-6</content>
<content>hours is suggested to rule out myocardial</content>
<content>damage.</content>
<content>>= 1.50 ng/ml Indicative of Myocardial Injury.</content>
<content></content> ID Date Data Source [id number] 08/10/2020 09:23:00 AM EST [facility] ([facility]) Name Value Range Interpretation Code Description Data Niru rce(s) Supporting Document(s) CPK Creatine Phosphokinase 42 U/L 39-308 Payton l (applies to non-numeric results) [facility] ([facility]) Troponin I 0.04 ng/mL Normal (applies to non-numeric resul ts) [facility]) <content>Troponin I Reference Interval f or Siemens Snyder LOCI:</content>
<content></content>
<content>99th Percentile= 0.00-0.045 ng/ml</content>
<content></content>
<content>Risk Stratification:</content>
<content><= 0.10 ng/ml Decreased Risk for Adverse Clinical</content>
<content>Events.</content>
<content>0.10-1.50 ng/ml Increased Risk for Adverse Clinical</content>
<content>Events. Evaluation of additional</content>
<content>criterion and/or repeat testing in 2-6</content>
<content>hours is suggested to rule out myocardial</content>
<content>damage.</content>
<content>>= 1.50 ng/ml Indicative of Myocardial Injury.</content>
<content></content> MB/CK Relative Index 2.38 Normal (applies to non-num jessa results) [facility]) <content>DIAGNOSIS CRITERIA</content>
<content>MMB ng/ml Relative Index (RI)</content>
<content>NON-AMI < or = 5 N/A</content>
<content>SORIANO ZONE > 5 < or = 4</content>
<content>AMI > 5 > 4</content>
<content></content> CK-MB Value Mass Laboratory test result Normal ( applies to non-numeric results) [facility]) ID Date Data Source [id number] 08/10/2020 04:58:00 AM EST [facility]) Name Value Range Interpretation Code Description Data Niru rce(s) Supporting Document(s) Blood Urea Nitrogen 95 mg/dL 7-18 Above high normal MEDENT ([facility]) Glucose, Fasting 99 mg/dL 70-100 Normal (applies to non-numeric results) [facility] ([facility]) Glomerular Filtration Rate 23.6 Below low normal [facility] ([facility]) <content>Units are mL/min/1.73 m2</content>
<content></content>
<content>Chronic Kidney Disease Staging per NKF:</content>
<content></content>
<content>Stage I & II GFR >=60 Normal to Mildly Decreased</content>
<content>Stage III GFR 30- 59 Moderately Decreased</content>
<content>Stage IV GFR 15-29 Severely Decreased</content>
<content>Stage V GFR <15 Very Little GFR Left</content>
<content>ESRD GFR <15 on ORTHOTIC AIDE</content>
<content></content> Creatinine For GFR 2.76 mg/dL 0.70-1.30 Above high normal [facility] ([facility]) Potassium Serum 3.9 meq/L 3.5-5.1 Normal (applies to non-numeric results) [facility] ([facility]) Sodium Level 140 meq/L 136-145 Normal (applies to non-numeric res ults) [facility] ([facility]) Chloride Level 104 meq/L 98-107 Normal (applies to non-numeric r esults) [facility] ([facility]) Carbon Dioxide Level 29 meq/L 21-32 Normal (applies to non-num jessa results) [facility]) Anion Gap 7 meq/L 8-16 Below low normal [facility] ( [facility]) Calcium Level 8.8 mg/dL 8.8-10.2 Normal (applies to non-numeric re sults) [facility]) ID Date Data Source [id number] 08/10/2020 04:58:00 AM EST [facility]) Name Value Range Interpretation Code Description Data Niru rce(s) Supporting Document(s) White Blood Count 4.4 10 4.0-10.0 Normal (applies to non-numeri c results) [facility] ([facility]) Hematocrit 29.2 % 42.0-52.0 Below low normal [facility] ( [facility]) Red Blood Count 2.93 10 4.30-6.10 Below low normal MED ENT ([facility]) Hemoglobin 8.8 g/dL 13.5-17.5 Below low normal [facility] ( [facility]) Mean Corpuscular Hemoglobin 30.0 pg 27.0-33.0 Norm al (applies to non-numeric results) [facility] ([facility]) Mean Corpuscular Volume 99.7 fl 80.0-96.0 Above high normal [facility] ([facility]) Mean Corpuscular HGB Conc 30.1 g/dL 32.0-36.5 Below low normal [facility] ([facility]) Platelet Count, Automated 112 10 150-450 Below low normal [facility] ([facility]) Red Cell Distribution Width 19.4 % 11.5-14.5 Above high normal [facility] ([facility]) Lymph % 7.9 % 24.0-44.0 Below low normal [facility] ( [facility]) Neutrophils % 71.1 % 36.0-66.0 Above high normal MEDE NT ([facility]) Creek % 12.4 % 0.0-5.0 Above high normal [facility] ([facility]) Baso % 0.5 % 0.0-1.0 Normal (applies to non-numeric resul ts) [facility] ([facility]) Immature Granulocyte % 0.7 % 0-3.0 Normal (applies to non-n umeric results) [facility] ([facility]) Eos % 7.4 % 0.0-3.0 Above high normal [facility] ([facility]) Lymph # 0.4 10 1.5-5.0 Below low normal [facility] ( [facility]) Neutrophils # 3.2 10 1.5-8.5 Normal (applies to non-numeric re sults) [facility] ([facility]) Nucleated Red Blood Cell % 0.0 % 0-0 Normal (applies to n on-numeric results) [facility] ([facility]) Eos # 0.3 10 0.0-0.5 Normal (applies to non-numeric resul ts) [facility]) Creek # 0.6 10 0.0-0.8 Normal (applies to non-numeric resul ts) [facility] ([facility]) Baso # 0.0 10 0.0-0.2 Normal (applies to non-numeric resul ts) [facility]) ID Date Data Source [id number] 08/09/2020 03:56:00 PM [facility] ([facility]) Name Value Range Interpretation Code Description Data Niru rce(s) Supporting Document(s) Blood group antibodies identified in Serum or Plasma Laboratory test result Normal (applies to non-numeric results) [facility] ([facility]) Anti-Jka ID Date Data Source [id number] 08/09/2020 03:56:00 PM [facility]) Name Value Range Interpretation Code Description Data Niru rce(s) Supporting Document(s) Blood Type Laboratory test result Normal (applies to non-n umeric results) [facility] ([facility]) Blood group antibody screen [Presence] in Serum or Juan sma Laboratory test result Normal (applies to non-numeric results) [facility] ([facility]) ID Date Data Source [id number] 08/09/2020 03:56:00 PM [facility]) Name Value Range Interpretation Code Description Data Niru rce(s) Supporting Document(s) Packed Cells Laboratory test result [facility] ([facility]) TRANSFUSED PRODUCT: PACKED CELLS COUNT: 1 ID Date Data Source [id number] 08/09/2020 04:29:00 AM [facility]) Name Value Range Interpretation Code Description Data Niru rce(s) Supporting Document(s) Glucose, Fasting 112 mg/dL 70-100 Above high normal [facility] Blood Urea Nitrogen 108 mg/dL 7-18 Above high normal [facility] ([facility]) Creatinine For GFR 3.01 mg/dL 0.70-1.30 Above high normal [facility] ([facility]) Glomerular Filtration Rate 21.4 Below low normal [facility] ([facility]) <content>Units are mL/min/1.73 m2</content>
<content></content>
<content>Chronic Kidney Disease Staging per NKF:</content>
<content></content>
<content>Stage I & II GFR >=60 Normal to Mildly Decreased</content>
<content>Stage III GFR 30- 59 Moderately Decreased</content>
<content>Stage IV GFR 15-29 Severely Decreased</content>
<content>Stage V GFR <15 Very Little GFR Left</content>
<content>ESRD GFR <15 on ORTHOTIC AIDE</content>
<content></content> Sodium Level 141 meq/L 136-145 Normal (applies to non-numeric res ults) [facility] ([facility]) Potassium Serum 3.9 meq/L 3.5-5.1 Normal (applies to non-numeric results) [facility] ([facility]) Anion Gap 8 meq/L 8-16 Normal (applies to non-numeric resul ts) [facility] Carbon Dioxide Level 28 meq/L 21-32 Normal (applies to non-num jessa results) [facility] ([facility]) Chloride Level 105 meq/L 98-107 Normal (applies to non-numeric r esults) [facility] ([facility]) Calcium Level 8.5 mg/dL 8.8-10.2 Below low normal MEDEN T ([facility]) ID Date Data Source [id number] 08/09/2020 04:29:00 AM EST [facility] ([facility]) Name Value Range Interpretation Code Description Data Niru rce(s) Supporting Document(s) White Blood Count 4.5 10 4.0-10.0 Normal (applies to non-numeri c results) [facility] ([facility]) Red Blood Count 2.82 10 4.30-6.10 Below low normal [facility] ([facility]) Hemoglobin 8.3 g/dL 13.5-17.5 Below low normal [facility] ( [facility]) Mean Corpuscular Volume 101.4 fl 80.0-96.0 Above high normal [facility] ([facility]) Hematocrit 28.6 % 42.0-52.0 Below low normal [facility] ( [facility]) Red Cell Distribution Width 19.8 % 11.5-14.5 Above high normal [facility] ([facility]) Mean Corpuscular HGB Conc 29.0 g/dL 32.0-36.5 Below low normal [facility] ([facility]) Mean Corpuscular Hemoglobin 29.4 pg 27.0-33.0 Norm al (applies to non-numeric results) [facility] ([facility]) Neutrophils % 73.6 % 36.0-66.0 Above high normal MEDE NT ([facility]) Platelet Count, Automated 106 10 150-450 Below low normal [facility] ([facility]) Lymph % 8.1 % 24.0-44.0 Below low normal [facility] ( [facility]) Creek % 9.6 % 0.0-5.0 Above high normal [facility] ([facility]) Eos % 7.6 % 0.0-3.0 Above high normal [facility] ([facility]) Baso % 0.2 % 0.0-1.0 Normal (applies to non-numeric resul ts) [facility] ([facility]) Immature Granulocyte % 0.9 % 0-3.0 Normal (applies to non-n umeric results) [facility] ([facility]) Nucleated Red Blood Cell % 0.0 % 0-0 Normal (applies to n on-numeric results) [facility] ([facility]) Neutrophils # 3.3 10 1.5-8.5 Normal (applies to non-numeric re sults) [facility] ([facility]) Creek # 0.4 10 0.0-0.8 Normal (applies to non-numeric resul ts) [facility] ([facility]) Eos # 0.3 10 0.0-0.5 Normal (applies to non-numeric resul ts) [facility] ([facility]) Lymph # 0.4 10 1.5-5.0 Below low normal [facility] ( [facility]) Baso # 0.0 10 0.0-0.2 Normal (applies to non-numeric resul ts) [facility] ([facility]) ID Date Data Source [id number] 08/08/2020 05:38:00 AM EST [facility] ([facility]) Name Value Range Interpretation Code Description Data Niru rce(s) Supporting Document(s) Blood Urea Nitrogen 119 mg/dL 7-18 Above high normal [facility] ([facility]) Glucose, Fasting 108 mg/dL 70-100 Above high normal M EDENT ([facility]) Creatinine For GFR 3.38 mg/dL 0.70-1.30 Above high normal [facility] ([facility]) Sodium Level 138 meq/L 136-145 Normal (applies to non-numeric res ults) [facility] ([facility]) Glomerular Filtration Rate 18.7 Below low normal [facility] ([facility]) <content>Units are mL/min/1.73 m2</content>
<content></content>
<content>Chronic Kidney Disease Staging per NKF:</content>
<content></content>
<content>Stage I & II GFR >=60 Normal to Mildly Decreased</content>
<content>Stage III GFR 30- 59 Moderately Decreased</content>
<content>Stage IV GFR 15-29 Severely Decreased</content>
<content>Stage V GFR <15 Very Little GFR Left</content>
<content>ESRD GFR <15 on ORTHOTIC AIDE</content>
<content></content> Potassium Serum 3.4 meq/L 3.5-5.1 Below low normal [facility] ([facility]) Carbon Dioxide Level 29 meq/L 21-32 Normal (applies to non-num jessa results) [facility] ([facility]) Chloride Level 101 meq/L 98-107 Normal (applies to non-numeric r esults) [facility] ([facility]) Calcium Level 8.8 mg/dL 8.8-10.2 Normal (applies to non-numeric re sults) [facility] ([facility]) Anion Gap 8 meq/L 8-16 Normal (applies to non-numeric resul ts) [facility] ([facility]) ID Date Data Source [id number] 08/08/2020 05:38:00 AM EST [facility] Name Value Range Interpretation Code Description Data Niru rce(s) Supporting Document(s) White Blood Count 4.4 10 4.0-10.0 Normal (applies to non-numeri c results) [facility] ([facility]) Red Blood Count 2.88 10 4.30-6.10 Below low normal [facility] ([facility]) Hematocrit 28.7 % 42.0-52.0 Below low normal [facility] ( [facility]) Hemoglobin 8.7 g/dL 13.5-17.5 Below low normal [facility] ( [facility]) Mean Corpuscular HGB Conc 30.3 g/dL 32.0-36.5 Below low normal [facility] ([facility]) Mean Corpuscular Volume 99.7 fl 80.0-96.0 Above high normal [facility] ([facility]) Mean Corpuscular Hemoglobin 30.2 pg 27.0-33.0 Norm al (applies to non-numeric results) [facility] ([facility]) Neutrophils % 71.9 % 36.0-66.0 Above high normal [facility] ([facility]) Platelet Count, Automated 108 10 150-450 Below low normal [facility] Red Cell Distribution Width 19.9 % 11.5-14.5 Above high normal [facility]) Lymph % 8.7 % 24.0-44.0 Below low normal [facility] ( [facility]) Creek % 10.7 % 0.0-5.0 Above high normal [facility] ([facility]) Baso % 0.5 % 0.0-1.0 Normal (applies to non-numeric resul ts) [facility] ([facility]) Eos % 7.5 % 0.0-3.0 Above high normal [facility]) Nucleated Red Blood Cell % 0.0 % 0-0 Normal (applies to n on-numeric results) [facility] ([facility]) Immature Granulocyte % 0.7 % 0-3.0 Normal (applies to non-n umeric results) [facility] ([facility]) Neutrophils # 3.2 10 1.5-8.5 Normal (applies to non-numeric re sults) [facility] ([facility]) Creek # 0.5 10 0.0-0.8 Normal (applies to non-numeric resul ts) [facility] ([facility]) Lymph # 0.4 10 1.5-5.0 Below low normal [facility] ( [facility]) Baso # 0.0 10 0.0-0.2 Normal (applies to non-numeric resul ts) [facility] ([facility]) Eos # 0.3 10 0.0-0.5 Normal (applies to non-numeric resul ts) [facility] ([facility]) ID Date Data Source [id number] 08/07/2020 06:39:00 AM EST [facility] ([facility]) Name Value Range Interpretation Code Description Data Niru rce(s) Supporting Document(s) Packed Cells Laboratory test result [facility]) TRANSFUSED PRODUCT: PACKED CELLS COUNT: 1 ID Date Data Source [id number] 08/07/2020 06:39:00 AM EST [facility] ([facility]) Name Value Range Interpretation Code Description Data Niru rce(s) Supporting Document(s) Blood Type Laboratory test result Normal (applies to non-n umeric results) [facility]) Blood group antibody screen [Presence] in Serum or Juan sma Laboratory test result Normal (applies to non-numeric results) [facility] ([facility]) ID Date Data Source [id number] 08/07/2020 06:39:00 AM EST [facility] ([facility]) Name Value Range Interpretation Code Description Data Niru rce(s) Supporting Document(s) Blood group antibodies identified in Serum or Plasma Laboratory test result Normal (applies to non-numeric results) [facility]) Anti-Jka ID Date Data Source [id number] 08/07/2020 04:56:00 AM [facility] ([facility]) Name Value Range Interpretation Code Description Data Niru rce(s) Supporting Document(s) Hemoglobin 8.0 g/dL 13.5-17.5 Below low normal [facility] ( [facility]) Red Blood Count 2.65 10 4.30-6.10 Below low normal [facility] ([facility]) White Blood Count 3.8 10 4.0-10.0 Below low normal [facility] ([facility]) Mean Corpuscular Volume 98.5 fl 80.0-96.0 Above high normal [facility] ([facility]) Hematocrit 26.1 % 42.0-52.0 Below low normal [facility] ( [facility]) Mean Corpuscular HGB Conc 30.7 g/dL 32.0-36.5 Below low normal [facility] ([facility]) Mean Corpuscular Hemoglobin 30.2 pg 27.0-33.0 Norm al (applies to non-numeric results) [facility] ([facility]) Red Cell Distribution Width 19.9 % 11.5-14.5 Above high normal [facility] ([facility]) Lymph % 9.9 % 24.0-44.0 Below low normal [facility] ( [facility]) Platelet Count, Automated 106 10 150-450 Below low normal [facility] ([facility]) Neutrophils % 71.0 % 36.0-66.0 Above high normal [facility] ([facility]) Eos % 6.0 % 0.0-3.0 Above high normal [facility] ([facility]) Baso % 0.3 % 0.0-1.0 Normal (applies to non-numeric resul ts) [facility] ([facility]) Creek % 12.3 % 0.0-5.0 Above high normal [facility] ([facility]) Immature Granulocyte % 0.5 % 0-3.0 Normal (applies to non-n umeric results) [facility] ([facility]) Neutrophils # 2.7 10 1.5-8.5 Normal (applies to non-numeric re sults) [facility] ([facility]) Nucleated Red Blood Cell % 0.0 % 0-0 Normal (applies to n on-numeric results) [facility] ([facility]) Lymph # 0.4 10 1.5-5.0 Below low normal [facility] ( [facility]) Creek # 0.5 10 0.0-0.8 Normal (applies to non-numeric resul ts) [facility] ([facility]) Eos # 0.2 10 0.0-0.5 Normal (applies to non-numeric resul ts) [facility] ([facility]) Baso # 0.0 10 0.0-0.2 Normal (applies to non-numeric resul ts) [facility] ([facility]) ID Date Data Source [id number] 08/07/2020 04:56:00 AM EST [facility] ([facility]) Name Value Range Interpretation Code Description Data Niru rce(s) Supporting Document(s) Glucose, Fasting 112 mg/dL 70-100 Above high normal [facility] ([facility]) Blood Urea Nitrogen 130 mg/dL 7-18 Above high normal [facility] ([facility]) Creatinine For GFR 3.65 mg/dL 0.70-1.30 Above high normal [facility] ([facility]) Glomerular Filtration Rate 17.1 Below low normal [facility] ([facility]) <content>Units are mL/min/1.73 m2</content>
<content></content>
<content>Chronic Kidney Disease Staging per NKF:</content>
<content></content>
<content>Stage I & II GFR >=60 Normal to Mildly Decreased</content>
<content>Stage III GFR 30- 59 Moderately Decreased</content>
<content>Stage IV GFR 15-29 Severely Decreased</content>
<content>Stage V GFR <15 Very Little GFR Left</content>
<content>ESRD GFR <15 on ORTHOTIC AIDE</content>
<content></content> Sodium Level 137 meq/L 136-145 Normal (applies to non-numeric res ults) [facility] ([facility]) Potassium Serum 3.4 meq/L 3.5-5.1 Below low normal [facility] ([facility]) Carbon Dioxide Level 29 meq/L 21-32 Normal (applies to non-num jessa results) [facility] ([facility]) Anion Gap 9 meq/L 8-16 Normal (applies to non-numeric resul ts) [facility] ([facility]) Chloride Level 99 meq/L 98-107 Normal (applies to non-numeric r esults) [facility] ([facility]) Calcium Level 8.3 mg/dL 8.8-10.2 Below low normal [facility] ([facility]) ID Date Data Source [id number] 08/06/2020 02:07:00 PM EST [facility] ([facility]) Name Value Range Interpretation Code Description Data Niru rce(s) Supporting Document(s) Glucose, Fasting 157 mg/dL 70-100 Above high normal [facility] ([facility]) Creatinine For GFR 3.93 mg/dL 0.70-1.30 Above high normal [facility] ([facility]) Blood Urea Nitrogen 135 mg/dL 7-18 Above high normal [facility] ([facility]) Glomerular Filtration Rate 15.7 Below low normal [facility]) <content>Units are mL/min/1.73 m2</content>
<content></content>
<content>Chronic Kidney Disease Staging per NKF:</content>
<content></content>
<content>Stage I & II GFR >=60 Normal to Mildly Decreased</content>
<content>Stage III GFR 30- 59 Moderately Decreased</content>
<content>Stage IV GFR 15-29 Severely Decreased</content>
<content>Stage V GFR <15 Very Little GFR Left</content>
<content>ESRD GFR <15 on ORTHOTIC AIDE</content>
<content></content> Sodium Level 136 meq/L 136-145 Normal (applies to non-numeric res ults) [facility] ([facility]) Potassium Serum 3.1 meq/L 3.5-5.1 Below low normal [facility] ([facility]) Chloride Level 96 meq/L 98-107 Below low normal [facility] ([facility]) Anion Gap 7 meq/L 8-16 Below low normal [facility] ( [facility]) Carbon Dioxide Level 33 meq/L 21-32 Above high normal [facility] ([facility]) Calcium Level 8.7 mg/dL 8.8-10.2 Below low normal [facility] ([facility]) Albumin 2.8 GM/DL 3.2-5.2 Below low normal [facility] ( [facility]) Phosphorus Level 4.6 mg/dL 2.5-4.9 Normal (applies to non-numeric results) [facility] ([facility]) ID Date Data Source [id number] 08/06/2020 04:30:00 AM EST [facility] ([facility]) Name Value Range Interpretation Code Description Data Niru rce(s) Supporting Document(s) Blood Urea Nitrogen 143 mg/dL 7-18 Above high normal [facility] ([facility]) Glucose, Fasting 109 mg/dL 70-100 Above high normal [facility] ([facility]) Creatinine For GFR 3.74 mg/dL 0.70-1.30 Above high normal [facility] ([facility]) Glomerular Filtration Rate 16.6 Below low normal [facility] ([facility]) <content>Units are mL/min/1.73 m2</content>
<content></content>
<content>Chronic Kidney Disease Staging per NKF:</content>
<content></content>
<content>Stage I & II GFR >=60 Normal to Mildly Decreased</content>
<content>Stage III GFR 30- 59 Moderately Decreased</content>
<content>Stage IV GFR 15-29 Severely Decreased</content>
<content>Stage V GFR <15 Very Little GFR Left</content>
<content>ESRD GFR <15 on ORTHOTIC AIDE</content>
<content></content> Sodium Level 137 meq/L 136-145 Normal (applies to non-numeric res ults) [facility] ([facility]) Chloride Level 98 meq/L 98-107 Normal (applies to non-numeric r esults) [facility] ([facility]) Potassium Serum 2.9 meq/L 3.5-5.1 Below lower panic limits [facility] ([facility]) Anion Gap 8 meq/L 8-16 Normal (applies to non-numeric resul ts) [facility] ([facility]) Carbon Dioxide Level 31 meq/L 21-32 Normal (applies to non-num jessa results) [facility] ([facility]) Calcium Level 8.5 mg/dL 8.8-10.2 Below low normal [facility] ([facility]) ID Date Data Source [id number] 08/06/2020 04:30:00 AM EST [facility] ([facility]) Name Value Range Interpretation Code Description Data Niru rce(s) Supporting Document(s) Prothrombin Time 16.0 s 12.5-14.3 Above high normal [facility] ([facility]) Inr 1.25 Normal (applies to non-numeric resul ts) [facility] ([facility]) THERAPUTIC HUMAN INR VALUES INDICATIONS NORMAL RANGES PROPHYLAXIS/TREATMENT OF: VENOUS THROMBOSIS 2.0-3.0 PULMONARY EMBOLISM 2.0-3.0 PREVENTION OF SYSTEMIC EMBOLISM FROM: TISSUE HEART VALVES 2.0-3.0 ACUTE MYOCARDIAL INFARCTION 2.0-3.0 VALVULAR HEART DISEASE 2.0-3.0 ATRIAL FIBRILLATION 2.0-3.0 MECHANICAL VALVES(HIGH RISK) 2.5-3.5 RECURRENT MYOCARDIAL INFARCTION 2.5-3.5 Partial Thromboplastin Time 33.0 s 24.2-38.5 Norm al (applies to non-numeric results) [facility] ([facility]) ID Date Data Source [id number] 08/06/2020 04:30:00 AM EST [facility] ([facility]) Name Value Range Interpretation Code Description Data Niru rce(s) Supporting Document(s) Hemoglobin 7.1 g/dL 13.5-17.5 Below low normal [facility] ( [facility]) White Blood Count 3.9 10 4.0-10.0 Below low normal [facility] ([facility]) Red Blood Count 2.34 10 4.30-6.10 Below low normal [facility] ([facility]) Mean Corpuscular Volume 102.1 fl 80.0-96.0 Above high normal [facility] ([facility]) Hematocrit 23.9 % 42.0-52.0 Below low normal [facility] ( [facility]) Mean Corpuscular Hemoglobin 30.3 pg 27.0-33.0 Norm al (applies to non-numeric results) [facility] ([facility]) Mean Corpuscular HGB Conc 29.7 g/dL 32.0-36.5 Below low normal [facility] ([facility]) Platelet Count, Automated 100 10 150-450 Below low normal [facility] ([facility]) Red Cell Distribution Width 19.1 % 11.5-14.5 Above high normal [facility] ([facility]) Neutrophils % 75.0 % 36.0-66.0 Above high normal [facility] ([facility]) Lymph % 8.4 % 24.0-44.0 Below low normal [facility] ( [facility]) Eos % 3.8 % 0.0-3.0 Above high normal [facility] ([facility]) Baso % 0.5 % 0.0-1.0 Normal (applies to non-numeric resul ts) [facility]) Creek % 12.0 % 0.0-5.0 Above high normal [facility] ([facility]) Nucleated Red Blood Cell % 0.0 % 0-0 Normal (applies to n on-numeric results) [facility] ([facility]) Immature Granulocyte % 0.3 % 0-3.0 Normal (applies to non-n umeric results) [facility] ([facility]) Neutrophils # 3.0 10 1.5-8.5 Normal (applies to non-numeric re sults) [facility] ([facility]) Creek # 0.5 10 0.0-0.8 Normal (applies to non-numeric resul ts) [facility]) Lymph # 0.3 10 1.5-5.0 Below low normal [facility] ( [facility]) Baso # 0.0 10 0.0-0.2 Normal (applies to non-numeric resul ts) [facility] ([facility]) Eos # 0.2 10 0.0-0.5 Normal (applies to non-numeric resul ts) [facility] ([facility]) ID Date Data Source [id number] 08/05/2020 03:11:00 PM EST [facility]) Name Value Range Interpretation Code Description Data Niru rce(s) Supporting Document(s) Blood group antibodies identified in Serum or Plasma Laboratory test result Normal (applies to non-numeric results) [facility]) Anti-Jka ID Date Data Source [id number] 08/05/2020 03:11:00 PM EST [facility]) Name Value Range Interpretation Code Description Data Niru rce(s) Supporting Document(s) Blood group antibody screen [Presence] in Serum or Juan sma Laboratory test result Normal (applies to non-numeric results) [facility] ([facility]) Blood Type Laboratory test result Normal (applies to non-n umeric results) [facility]) ID Date Data Source [id number] 08/05/2020 03:11:00 PM EST [facility] ([facility]) Name Value Range Interpretation Code Description Data Niru rce(s) Supporting Document(s) Blood Urea Nitrogen 139 mg/dL 7-18 Above high normal [facility] ([facility]) Glucose, Fasting 123 mg/dL 70-100 Above high normal [facility] ([facility]) Sodium Level 138 meq/L 136-145 Normal (applies to non-numeric res ults) [facility] ([facility]) Glomerular Filtration Rate 15.5 Below low normal [facility]) <content>Units are mL/min/1.73 m2</content>
<content></content>
<content>Chronic Kidney Disease Staging per NKF:</content>
<content></content>
<content>Stage I & II GFR >=60 Normal to Mildly Decreased</content>
<content>Stage III GFR 30- 59 Moderately Decreased</content>
<content>Stage IV GFR 15-29 Severely Decreased</content>
<content>Stage V GFR <15 Very Little GFR Left</content>
<content>ESRD GFR <15 on ORTHOTIC AIDE</content>
<content></content> Creatinine For GFR 3.97 mg/dL 0.70-1.30 Above high normal [facility] ([facility]) Chloride Level 98 meq/L 98-107 Normal (applies to non-numeric r esults) [facility] ([facility]) Potassium Serum 3.2 meq/L 3.5-5.1 Below low normal [facility] ([facility]) Anion Gap 11 meq/L 8-16 Normal (applies to non-numeric resul ts) [facility] ([facility]) Carbon Dioxide Level 29 meq/L 21-32 Normal (applies to non-num jessa results) [facility] ([facility]) Calcium Level 8.3 mg/dL 8.8-10.2 Below low normal [facility] ([facility]) Alt/SGPT 11 U/L 12-78 Below low normal [facility] ( [facility]) Ast/Sgot 13 U/L 7-37 Normal (applies to non-numeric resul ts) [facility] ([facility]) Total Protein 7.2 GM/DL 6.4-8.2 Normal (applies to non-numeric re sults) [facility]) Bilirubin,Total 0.4 mg/dL 0.2-1.0 Normal (applies to non-numeric results) [facility] ([facility]) Alkaline Phosphatase 85 U/L 45-117 Normal (applies to non-num jessa results) [facility]) Albumin 3.0 GM/DL 3.2-5.2 Below low normal [facility] ( [facility]) Albumin/Globulin Ratio 0.7 Normal (applies to non-n umeric results) [facility]) ID Date Data Source [id number] 08/05/2020 03:11:00 PM EST [facility] ([facility]) Name Value Range Interpretation Code Description Data Niru rce(s) Supporting Document(s) Platelets reticulated/100 platelets in Blood by Automated count 1.1 % 0.0-10.91 Normal (applies to non-numeric results) [facility] ([facility]) LAB DRAW ID Date Data Source [id number] 08/05/2020 03:11:00 PM [facility]) Name Value Range Interpretation Code Description Data Niru rce(s) Supporting Document(s) White Blood Count 3.7 10 4.0-10.0 Below low normal [facility]) Hematocrit 24.6 % 42.0-52.0 Below low normal [facility] ( [facility]) Hemoglobin 7.0 g/dL 13.5-17.5 Below low normal [facility] ( [facility]) Red Blood Count 2.24 10 4.30-6.10 Below low normal [facility] ([facility]) Mean Corpuscular Hemoglobin 31.3 pg 27.0-33.0 Norm al (applies to non-numeric results) [facility] ([facility]) Mean Corpuscular Volume 109.8 fl 80.0-96.0 Above high normal [facility] ([facility]) Mean Corpuscular HGB Conc 28.5 g/dL 32.0-36.5 Below low normal [facility] ([facility]) Red Cell Distribution Width 18.7 % 11.5-14.5 Above high normal [facility] ([facility]) Platelet Count, Automated 94 10 150-450 Below low normal [facility] ([facility]) Nucleated Red Blood Cell % 0.0 % 0-0 Normal (applies to n on-numeric results) [facility] ([facility]) ID Date Data Source [id number] 08/05/2020 02:56:00 PM EST [facility] ([facility]) Name Value Range Interpretation Code Description Data Niru rce(s) Supporting Document(s) Packed Cells Laboratory test result [facility] ([facility]) TRANSFUSED PRODUCT: PACKED CELLS COUNT: 2 ID Date Data Source [id number] 08/05/2020 12:54:00 PM EST [facility] ([facility]) Name Value Range Interpretation Code Description Data Niru rce(s) Supporting Document(s) Surgical pathology study Laboratory test result [facility] ([facility]) FINAL DIAGNOSIS Colon, 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 -4/TR 08/06/2020 - 1224 CLINICAL DIAGNOSIS Anemia 08/05/2020 - 150 GROSS DIAGNOSIS Received in formalin labeled "biopsy at 65 cm" consists of two fragments of leon tissue measuring 0.5 x 0.3 x 0.2 cm in aggregate. All in one. -SV 08/05/2020 - 150 Signed RICARDA CHRISTINA MD 08/06/2020 1238 ID Date Data Source [id number] 07/31/2020 10:30:00 AM EST [facility] Name Value Range Interpretation Code Description Data Niru rce(s) Supporting Document(s) SARS coronavirus 2 RNA Not Detected [facility] This lab was ordered by [facility] and reported by [facility]. ID Date Data Source [id number] 07/27/2020 01:00:00 PM EST [facility] Name Value Range Interpretation Code Description Data Niru rce(s) Supporting Document(s) SARS coronavirus 2 RNA [Presence] in Res piratory specimen by JACE with probe detection [facility] This lab was ordered by [facility] a nd reported by [facility]. ID Date Data Source TSH 06/02/2020 02:27:05 AM EST eCW1 ([facility]) Name Value Range Interpretation Code Description Data Niru rce(s) Supporting Document(s) 1.940 THYROID STIMULATING HORMONE eC W1 ([facility]) ID Date Data Source Comprehensive Metabolic Profile (CMP) 06/02/2020 02:27:05 AM EST eCW1 ([facility]) Name Value Range Interpretation Code Description Data Niru rce(s) Supporting Document(s) 132 GLUCOSE, FASTING eCW1 ([facility]) 91 BLOOD UREA NITROGEN eCW1 ([facility]) 3.28 CREATININE FOR GFR eCW1 ([facility]) 19.4 GLOMERULAR FILTRATION RATE eCW 1 ([facility]) 138 SODIUM LEVEL eCW1 ([facility]) 3.8 POTASSIUM SERUM eCW1 ([facility]) 99 CHLORIDE LEVEL eCW1 ([facility]) 31 CARBON DIOXIDE LEVEL eCW1 ([facility]) 20 AST/SGOT eCW1 (Count includes the [facility]) 8.7 CALCIUM LEVEL eCW1 ([facility]) 83 ALKALINE PHOSPHATASE eCW1 ([facility]) 18 ALT/SGPT eCW1 (Count includes the [facility]) 0.4 BILIRUBIN,TOTAL eCW1 ([facility]) 3.0 ALBUMIN eCW1 (Count includes the [facility]) 7.9 TOTAL PROTEIN eCW1 ([facility]) 0.6 ALBUMIN/GLOBULIN RATIO eCW1 ([facility]) ID Date Data Source CBC with Differential 06/02/2020 02:27:05 AM EST eCW1 ([facility]) Name Value Range Interpretation Code Description Data Niru rce(s) Supporting Document(s) 4.4 WHITE BLOOD COUNT eCW1 ([facility]) 2.43 RED BLOOD COUNT eCW1 ([facility]) 7.2 HEMOGLOBIN eCW1 ([facility]) 25.3 HEMATOCRIT eCW1 ([facility]) 29.6 MEAN CORPUSCULAR HEMOGLOBIN eC W1 ([facility]) 104.1 MEAN CORPUSCULAR VOLUME eCW1 ( [facility]) 28.5 MEAN CORPUSCULAR HGB CONC eCW1 ([facility]) 15.9 RED CELL DISTRIBUTION WIDTH eC W1 ([facility]) 75.7 NEUTROPHILS % eCW1 ([facility]) 125 PLATELET COUNT, AUTOMATED eCW1 ([facility]) 9.8 MONO % eCW1 (Count includes the [facility]) 7.1 LYMPH % eCW1 (Count includes the [facility]) 0.5 BASO % eCW1 (Count includes the [facility]) 3.3 NEUTROPHILS # eCW1 ([facility]) 6.2 EOS % eCW1 (Count includes the [facility]) 0.3 LYMPH # eCW1 (Count includes the [facility]) 0.4 MONO # eCW1 (Count includes the [facility]) 0.3 EOS # eCW1 (Count includes the [facility]) 0.0 BASO # eCW1 (Count includes the [facility]) ID Date Data Source [id number] 04/24/2020 04:06:03 PM EDT [facility] Name Value Range Interpretation Code Description Data Niru rce(s) Supporting Document(s) &PDF [facility] [id number]/BCIbzJRPit9IiXHriYFr3LLjqMAJpD0KruYeqTECECFBoH2JVGHJOESkxFJAn [facility] [file] [id number]/dYF6GgcqfqzowZOLoJbFR4nGRJQx1U3THqK2ETFURIpSbmBmh+Inés+ [file] AgICAgICAgICAgICAgICAgICAgICAgICAgICAgICAgICAgICAgICAgICAgICAgICAgICAgICAgICAgDQ ogICAgICAgICAgICAgICAgICAgICAgICAgICAgICAg ICAgICAgICAgICAgICAgICAgICAgICAgICAgICAgICAgICAgICAgICAgICAgICAgICAgICAgICAgICAg ICAgICAgICAgDQogICAgICAgICAgICAgICAgICAgICAgICAgICAgICAgICAgICAgICAgICAgICAgICAg ICAgICAgICAgICAgICAgICAgICAgICAgICAgICAgIC AgICAgICAgICAgICAgICAgICAgDQogICAgICAgICAgICAgICAgICAgICAgICAgICAgICAgICAgICAgIC AgICAgICAgICAgICAgICAgICAgICAgICAgICAgICAgICAgICAgICAgICAgICAgICAgICAgICAgICAgIC AgDQogICAgICAgICAgICAgICAgICAgICAgICAgICAg ICAgICAgICAgICAgICAgICAgICAgICAgICAgICAgICAgICAgICAgICAgICAgICAgICAgICAgICAgICAg ICAgICAgICAgICAgDQogICAgICAgICAgICAgICAgICAgICAgICAgICAgICAgICAgICAgICAgICAgICAg ICAgICAgICAgICAgICAgICAgICAgICAgICAgICAgIC AgICAgICAgICAgICAgICAgICAgICAgDQogICAgICAgICAgICAgICAgICAgICAgICAgICAgICAgICAgIC AgICAgICAgICAgICAgICAgICAgICAgICAgICAgICAgICAgICAgICAgICAgICAgICAgICAgICAgICAgIC AgICAgDQogICAgICAgICAgICAgICAgICAgICAgICAg ICAgICAgICAgICAgICAgICAgICAgICAgICAgICAgICAgICAgICAgICAgICAgICAgICAgICAgICAgICAg ICAgICAgICAgICAgICAgDQogICAgICAgICAgICAgICAgICAgICAgICAgICAgICAgICAgICAgICAgICAg ICAgICAgICAgICAgICAgICAgICAgICAgICAgICAgIC AgICAgICAgICAgICAgICAgICAgICAgICAgDQogICAgICAgICAgICAgICAgICAgICAgICAgICAgICAgIC AgICAgICAgICAgICAgICAgICAgICAgICAgICAgICAgICAgICAgICAgICAgICAgICAgICAgICAgICAgIC FyBPBlMEWvZDl6L9nwCERwQWStTJ6xUJv1Ci9+DQoN WhRlVOB6swWkaV3SJL6or6SxFAetZTErr3DlFWh1DJ0KPRNnAPqnXH2AEZpznn9QRYReNAVkvBOYq8rr XkPqJHP8YTBnGumgQE7RVTOyR5xjdbTzQZJoPSGRUDjxOJLVJB1XMhNiZ5QqsI13HBIYPn7+DQplbmRv JmzHVzU4GMRqn1LxBSi9KM5PBUPpDMenKU9JMIVlnQ 8wXDrjTB8IEqOxURPeFKKSOpKgD91cyHNuVSy4E5ToOaTbPEAiTxwxKDOaYWxvAlVfTAAvJfCgDVgnUY 4+ID4+MRxmDU1MXFiqppAzLTRjGf4IMVMtWFX2FKBgiEJrMjRiUKPIUJuhVU4VwKGtOXY5qY5hBTumVP XaANPrU1bQIhQsfOdbJA43cAqorpZunUZzOBz+Pg0K FM1oj7UcUYq0vhBjQUkeRXX2RXyhHOAgDYDmKMGwUZT9KHL5LYAPQrAhBZRgHTPpZXmhGYAlOSXmkz4D MBTcXBNoGYTeDnMsPQFfVSCuMVvsEVYhWHZ0LZk0ZRDaTXUtSA7JWwRjAONiPWKpULCcHCFrHCEfyd7V MDAwMDAwMzYyNiAwMDAwMCBuDQowMDAwMDAzODMwID QtSOWlDV6YZdItPKTkGVT2GxqqKSFzUHIqgi6OOUOuMETtDsq1TWAqDOQcMJQnQAzlYJZzASH3TrZoLC HdCRUcCL6IPjOmTWVfHIm2LYPqRONrMYPxfe4QCVUrFUUuDTV9QlQdVDJnZCAxSZnlLXInNJO7EAN8YF QvOQEjHN0YPfSrPBKxZMpfSftjVYKdXBGvsv9SZFDb AYDfHEQpCxJtHGGwXPSfYVoeQHIcMRG5CfxaIFVyKRWwCK4JWxTmOZJoKJI3HRugQTJzYQGats5RPVDx IYLkEKpnNPDyDUAvLIAeKRpiAHHzIZA3ZGCwFKXyBLZxSU1CEhScUHFsRNCyATurLNCqKNAzqt2TWMZo NGBzKjM6KWCvXBMrPVBxVHjeGJNtCKD9NyR2UCStVJ KyOK5TUePtEFEoLFF8AVzvIUCjAOYcsw6IXHRuIVSgKlW6DdRkTAIkGJQoIUtcIYGyBPP9FaJeRBBlNB ZyDR6NIeAjFOAzUdA5VCuhMHOtAWLhqz3UPOHqFESxClL8KHXxDAJlHJHwEMx1ghSvxKIeBIv7RH3IJ1 AjivJkFjcMOs5Qt287VQJ4JLPvXw1XT6bxNp6nIYUu LYNZXv6DMQo9GHPuXUYoAHX3VFOpUwvjUcReTOT5WXbzZDZ5DArfSaE+BOxyBBHwNUBlEidfHKF4UEFz WAPfSBb8M6OuPgQlYNX8MY5hQVDHCp1+CAbboCLxqIekGTUCSoD7Mhv0MNwkHICBPa9E Procedure Social History Code Duration Value Status Description Data Source(s ) Smoking 07/28/2020 12:00:00 AM EST Former Smoker completed Former Smoker eCW1 ([facility]) Smoking 07/28/2020 12:00:00 AM EST Former Smoker completed Former Smoker eCW1 ([facility]) Smoking 07/28/2020 12:00:00 AM EST Former Smoker completed Former Smoker eCW1 ([facility]) Smoking 06/22/2020 12:00:00 AM EST Former Smoker completed Former Smoker eCW1 ([facility]) Smoking 06/22/2020 12:00:00 AM EST Former Smoker completed Former Smoker eCW1 ([facility]) Smoking 06/22/2020 12:00:00 AM EST Former Smoker completed Former Smoker eCW1 ([facility]) Smoking 06/22/2020 12:00:00 AM EST Former Smoker completed Former Smoker eCW1 ([facility]) Smoking 05/25/2020 12:00:00 AM EST Former Smoker completed Former Smoker eCW1 ([facility]) Smoking 05/25/2020 12:00:00 AM EST Former Smoker completed Former Smoker eCW1 ([facility]) Smoking 05/25/2020 12:00:00 AM EST Former Smoker completed Former Smoker eCW1 ([facility]) Smoking 05/25/2020 12:00:00 AM EST Former Smoker completed Former Smoker eCW1 ([facility]) Smoking 04/19/2020 02:23:42 PM EDT Ex-smoker (finding) complet ed Ex-smoker (finding) NAHOMI ([facility]) Smoking 03/18/2020 02:10:37 PM EDT Ex-smoker (finding) complet ed Ex-smoker (finding) NAHOMI ([facility]on Ken [facility]) Smoking 09/22/2019 12:00:00 AM EST Non Smoker completed Non Smoke r MEDENT ([facility], ) Smoking 07/31/2019 10:25:53 AM EST Ex-smoker (finding) complet ed Ex-smoker (finding) NAHOMI ([facility]on Ken [facility]) Vital Signs ID Date Data Source UNK Name Value Range Interpretation Code Description Data Source(s) Diastolic blood pressure 64 mm[Hg] 64 mm[Hg] eCW1 ([facility]) Systolic blood pressure 126 mm[Hg] 126 mm[Hg] e CW1 ([facility]) Body temperature 98.5 [degF] 98.5 [degF] eCW1 ( [facility]) Respiratory rate 20 /min 20 /min eCW1 ([facility]) Heart rate 77 /min 77 /min eCW1 ([facility]) Body mass index (BMI) [Ratio] 46.05 kg/m2 46.05 kg/m2 eCW1 ([facility]) Body height 70 [in_i] 70 [in_i] eCW1 ([facility]) Body weight 321 [lb_av] 321 [lb_av] eCW1 ([facility]) Body surface area Derived from formula 2.54 m2 2.54 m2 MEDENT ([facility], ) Body weight 147.420 kg 147.420 kg [facility] ([facility], ) [place] body weight 160 [lb_av] 160 [lb_av] MEDEN T ([facility], ) Body mass index (BMI) [Ratio] 48.0 kg/m2 48.0 k g/m2 [facility] ([facility]) Body weight 325.00 [lb_av] 325.00 [lb_av] MEDEN T ([facility]) Body height 69 [in_i] 69 [in_i] [facility] ([facility]) 5'9" Heart rate 76 /min 76 /min [facility] ([facility]) Diastolic blood pressure 56 mm[Hg] 56 mm[Hg] [facility] ([facility]) Systolic blood pressure 108 mm[Hg] 108 mm[facility]Hg] [facility] Body surface area Derived from formula 2.45 m2 2.45 m2 [facility] ([facility]) Body weight 136.080 kg 136.080 kg [facility] ([facility]) [place] body weight 160 [lb_av] 160 [lb_av] MEDEN T ([facility]) Body mass index (BMI) [Ratio] 44.3 kg/m2 44.3 k g/m2 [facility] ([facility]) Body weight 300.00 [lb_av] 300.00 [lb_av] MEDEN T ([facility]) Stated Body height 69 [in_i] 69 [in_i] [facility] ([facility]) 5'9" Diastolic blood pressure 69 mm[Hg] 69 mm[Hg] [facility] ([facility]) Systolic blood pressure 139 mm[Hg] 139 mm[Hg] [facility] Diastolic blood pressure 63 mm[Hg] 63 mm[Hg] eCW1 ([facility]) Systolic blood pressure 129 mm[Hg] 129 mm[Hg] e CW1 ([facility]) Body temperature 97.6 [degF] 97.6 [degF] eCW1 ( [facility]) Respiratory rate 20 /min 20 /min eCW1 ([facility]) Heart rate 111 /min 111 /min eCW1 ([facility]) Body mass index (BMI) [Ratio] 47.03 kg/m2 47.03 kg/m2 eCW1 ([facility]) Body height 70 [in_i] 70 [in_i] eCW1 ([facility]) Body weight 327.8 [lb_av] 327.8 [lb_av] eCW1 ([facility]) Diastolic blood pressure 83 mm[Hg] 83 mm[Hg] eCW1 ([facility]) Systolic blood pressure 130 mm[Hg] 130 mm[Hg] e CW1 ([facility]) Body temperature 97.9 [degF] 97.9 [degF] eCW1 ( [facility]) Respiratory rate 19 /min 19 /min eCW1 ([facility]) Heart rate 83 /min 83 /min eCW1 ([facility]) Body mass index (BMI) [Ratio] 47.49 kg/m2 47.49 kg/m2 W1 ([facility]) Body height [in_i] eCW1 ([facility]) Body weight 331 [lb_av] 331 [lb_av] eCW1 ([facility]) Diastolic blood pressure 50 mm[Hg] 50 mm[Hg] eCW1 ([facility]) Systolic blood pressure 153 mm[Hg] 153 mm[Hg] e CW1 ([facility]) Body temperature 98.7 [degF] 98.7 [degF] eCW1 ( [facility]) Respiratory rate 18 /min 18 /min eCW1 ([facility]) Heart rate 95 /min 95 /min eCW1 ([facility]) Body mass index (BMI) [Ratio] 43.61 kg/m2 43.61 kg/m2 eCW1 ([facility]) Body height [in_i] eCW1 ([facility]) Body weight 304 [lb_av] 304 [lb_av] eCW1 ([facility]) Diastolic blood pressure 70 mm[Hg] 70 mm[Hg] eCW1 ([facility]) Systolic blood pressure 150 mm[Hg] 150 mm[Hg] e CW1 ([facility]) Body temperature 98.2 [degF] 98.2 [degF] eCW1 ( [facility]) Respiratory rate 18 /min 18 /min eCW1 ([facility]) Heart rate 84 /min 84 /min eCW1 ([facility]) Body mass index (BMI) [Ratio] 41.52 kg/m2 41.52 kg/m2 eCW1 ([facility]) Body height [in_us] eCW1 ([facility]) Body weight Measured 289.4 [lb_av] 289.4 [lb_av ] eCW1 ([facility]) Body surface area Derived from formula 2.45 m2 2.45 m2 [facility] ([facility]) Body weight 136.080 kg 136.080 kg [facility] ([facility]) [place] body weight 160 [lb_av] 160 [lb_av] MEDEN T ([facility]) Body mass index (BMI) [Ratio] 44.3 kg/m2 44.3 k g/m2 [facility] ([facility]) Body weight 300.00 [lb_av] 300.00 [lb_av] MEDEN T ([facility]) Body height 69 [in_i] 69 [in_i] [facility] ([facility]) 5'9" Diastolic blood pressure 70 mm[Hg] 70 mm[Hg] [facility] ([facility]) Systolic blood pressure 160 mm[Hg] 160 mm[Hg] M EDENT ([facility]) Diastolic blood pressure 80 mm[Hg] 80 mm[Hg] eCW1 ([facility]) Systolic blood pressure 140 mm[Hg] 140 mm[Hg] e CW1 ([facility]) Body temperature 98.1 [degF] 98.1 [degF] eCW1 ( [facility]) Respiratory rate 20 /min 20 /min eCW1 ([facility]) Heart rate 88 /min 88 /min eCW1 ([facility]) Body mass index (BMI) [Ratio] 42.32 kg/m2 42.32 kg/m2 W1 ([facility]) Body height [in_us] eCW1 ([facility]) Body weight Measured 295 [lb_av] 295 [lb_av] eC W1 ([facility]) Diastolic blood pressure 78 mm[Hg] 78 mm[Hg] eCW1 ([facility]) Systolic blood pressure 148 mm[Hg] 148 mm[Hg] e CW1 ([facility]) Body temperature 97.5 [degF] 97.5 [degF] eCW1 ( [facility]) Respiratory rate 18 /min 18 /min eCW1 ([facility]) Heart rate 65 /min 65 /min eCW1 ([facility]) Body mass index (BMI) [Ratio] 43.39 kg/m2 43.39 kg/m2 eCW1 ([facility]) Body height [in_us] eCW1 ([facility]) Body weight Measured 302.4 [lb_av] 302.4 [lb_av ] eCW1 ([facility]) ID Date Data Source [id number] 08/11/2020 03:05:37 PM EST [facility] Name Value Range Interpretation Code Description Data Source(s) TRANSFER FROM [facility] Patient Treatment Plan of Care Planned Activity Planned Date Details Description Data Source (s) Tamsulosin hydrochloride 0.4 MG Oral Capsule 07/04/2020 12:00:00 AM EST eCW1 ([facility]) Tamsulosin hydrochloride 0.4 MG Oral Capsule 07/04/2020 12:00:00 AM EST eCW1 ([facility]) Glucometer 07/29/2019 12:00:00 AM EST e CW1 ([facility]) 24 HR Glipizide 2.5 MG Extended Release Oral Tablet 07/07/20 12:00:00 AM EST eCW1 ([facility])
--- NOTE | 2020-08-17 10:59 | IPN ---
NEPHROLOGY PROGRESS NOTE DATE: 08/11/2020 SUBJECTIVE: The patient was seen and examined this morning at the bedside. Reports he continues to have bloody bowel movements. Denies any recurrent chest pain. He complains of dyspnea with mild exertion. PHYSICAL EXAMINATION: VITAL SIGNS: Temperature 98.4, pulse 86, respiratory rate 20, blood pressure 128/59, saturating 93% on room air. INTAKE AND OUTPUT: Intake yesterday was 1,500. There were 9 voids recorded yesterday and 2 bowel movements. Weight in the bed scale today is 143 kg. GENERAL APPEARANCE: The patient is seen awake, alert, oriented, sitting out of bed in the chair, morbidly obese male in no apparent distress. HEENT: The extraocular muscles are intact. Tongue is moist. NECK: Supple. Jugular veins were not elevated while he is sitting upright. HEART: Irregular. There is 2+ leg edema. LUNGS: Diminished breath sounds at the bases, otherwise no crackles or rales. ABDOMEN: Soft and obese. There is some edema in the abdominal wall. EXTREMITIES: 2+ edema. SKIN: Improvement in his pallor. NEUROLOGICAL: Alert and oriented x3. No focal deficits. LABORATORY STUDIES: White count 5.3, hemoglobin 9.2, platelet count 101. Sodium 137, potassium 4.2, BUN 90, creatinine 2.8. INPATIENT MEDICATIONS: I increased his Torsemide to 50 mg p.o. twice daily. His remainder of medications are unchanged from prior. PROBLEMSS: 1. Acute kidney injury superimposed on chronic kidney disease stage 4. Acute kidney injury is resolved. His renal function is back to baseline. He did not develop dialysis needs even though he had IV contrast exposure. His acute kidney injury was due to recurrent GI bleeds. His blood urea nitrogen is now down to 90 which is close to his usual baseline. He is not uremic. There is no urgent indication for dialysis at this point. His diuretics have been increased again to his home regimen of Torsemide 50 mg twice daily and Spironolactone 25 mg daily. I would hold off on restarting Metolazone. 2. Recurrent GI bleed in the setting of sigmoid mass. His hemoglobin has come up in the past 24 hours. He is status post 6 units PRBC on this admission. He is pending transfer for evaluation by colorectal surgeon. His GI bleed does appear to have slowed. He continues on PPI therapy. 3. Chronic atrial fibrillation - he is rate controlled and he is not on anticoagulation given recurrent GI bleed. 4. Systolic congestive heart failure he has increasing peripheral edema. His diuretics were held for a few days in the setting of GI bleed. Then he was resumed but at a lower dose than his usual home regimen. I am increasing Torsemide now to 50 mg twice daily and continue Spironolactone 25 mg daily. We will keep him off Metolazone for the time being (which he usually takes at home three days a week).
== END 2020-08-11 18:45 | disposition short-term general hospital (02) | DRG 375 ==
LOC: M PCU 10:00 → M OPP 10:00 → M PCU 14:40 → M OPP 15:29 → M PCU 08-11 18:45
PROVIDERS: ADMIT Internal Medicine Nephrology; ATTEND Internal Medicine Nephrology
PROC: 0DBN8ZX Excision of Sigmoid Colon, Via Natural or Artificial Opening Endoscopic, Diagnostic (ICD-10-PCS; 2020-08-05)
PROC: 30233N1 Transfusion of Nonautologous Red Blood Cells into Peripheral Vein, Percutaneous Approach (ICD-10-PCS; 2020-08-05)
PROC: 0DJ08ZZ Inspection of Upper Intestinal Tract, Via Natural or Artificial Opening Endoscopic (ICD-10-PCS; principal; 2020-08-05 11:45)
DX: C18.7 Malignant neoplasm of sigmoid colon (principal); N18.4 Chronic kidney disease, stage 4 (severe); I48.20 Chronic atrial fibrillation, unspecified; K92.2 Gastrointestinal hemorrhage, unspecified; I50.22 Chronic systolic (congestive) heart failure; N17.9 Acute kidney failure, unspecified; N13.30 Unspecified hydronephrosis; D62 Acute posthemorrhagic anemia; K76.6 Portal hypertension; R18.8 Other ascites; J90 Pleural effusion, not elsewhere classified; Z68.42 Body mass index [BMI] 45.0-49.9, adult; E66.01 Morbid (severe) obesity due to excess calories; I27.29 Other secondary pulmonary hypertension; I50.812 Chronic right heart failure; K74.60 Unspecified cirrhosis of liver; D69.6 Thrombocytopenia, unspecified; E11.22 Type 2 diabetes mellitus with diabetic chronic kidney disease; R16.1 Splenomegaly, not elsewhere classified; E87.6 Hypokalemia; E78.5 Hyperlipidemia, unspecified; M10.30 Gout due to renal impairment, unspecified site; R07.89 Other chest pain; N40.1 Benign prostatic hyperplasia with lower urinary tract symptoms; I86.8 Varicose veins of other specified sites; I95.9 Hypotension, unspecified; E03.9 Hypothyroidism, unspecified; K29.80 Duodenitis without bleeding; I89.0 Lymphedema, not elsewhere classified; N39.41 Urge incontinence; I87.2 Venous insufficiency (chronic) (peripheral); Z85.46 Personal history of malignant neoplasm of prostate; Z90.49 Acquired absence of other specified parts of digestive tract; Z98.0 Intestinal bypass and anastomosis status; Z98.49 Cataract extraction status, unspecified eye; Z92.3 Personal history of irradiation; Z87.442 Personal history of urinary calculi; Z87.891 Personal history of nicotine dependence; Z79.84 Long term (current) use of oral hypoglycemic drugs; Z79.899 Other long term (current) drug therapy; Z91.013 Allergy to seafood

== ENCOUNTER → 2021-01-06 | Outpatient (CLI) | payer OTHER ==
[~2021-01-06] MED LIST changes: -NS 1,000 ML IV ONE
== END ==
LOC: M WUC 12:14
PROVIDERS: ATTEND Family Medicine
DX: E03.9 Hypothyroidism, unspecified (principal)

== ENCOUNTER → 2021-03-24 | Outpatient (CLI) | payer OTHER ==
[~2021-03-24] MED LIST changes: -LISI2.5T2 PO; +LISI2.5T9 PO
== END ==
LOC: M WUC 10:27
PROVIDERS: ATTEND Family Medicine
DX: E03.9 Hypothyroidism, unspecified (principal)

== ENCOUNTER → 2021-05-05 | Outpatient (CLI) | payer OTHER ==
[~2021-05-05] MED LIST changes: +ALLO300T2 PO; +ECOT81TA5 PO; +GLIP10TA PO; -KLOR20TA42 PO; +METO1TAB32 PO; +POTA-141 PO; +RENV2TAB PO; +SEVE800T3 PO
== END ==
LOC: M LABSMTC 11:21
PROVIDERS: ATTEND Anesthesiology
DX: Z01.818 Encounter for other preprocedural examination (principal); Z11.52 Encounter for screening for COVID-19

== ENCOUNTER 2021-05-10 06:21 | Day surgery (SDC) | payer OTHER ==
[~2021-05-10] VITALS: Ht 175.3 cm; Wt 122.9 kg
[~2021-05-10 06:21] MED LIST changes: +LR 1,000 ML IV ONE
--- OUTSIDE RECORDS SUMMARY | 2021-05-10 06:26 | CCD | Continuity of Care Document ---
Author Author Jeffrey TYSON MD Organization Unknown Address [address], [address] [place] [address] Phone [phone] Care Team Providers Care Assistant Portfolio Manager Name Role Phone Lanie Meng M.D. AUTM Gabriel Ng D.O. AUTM [phone] AUTM Unavailable Problems Active Problems Provider Date Chronic kidney disease stage 4 Romaine Tyson MD Onset: Cor pulmonale Romaine Tyson MD Onset: 04/14/2021 Essential hypertension Romaine Tyson MD Onset: 04/14/2021 Malignant tumor of sigmoid colon Romaine Tyson MD Onset: 04/14/2021 Social History Type Date Description Comments Sex Unknown ETOH Use Denies alcohol use Tobacco Use Start: Unknown Non Smoker Recreational Drug Use Denies Drug Use Smoking Status Reviewed: 09/22/19 Non Smoker Allergies, Adverse Reactions, Alerts Description No Known Drug Allergies Medications Active Medications SIG Qnty Indications Ordering Provide r Date Allopurinol 300mg Tablets 1 by mouth every day Unknown Calcium 600 + D [id number] Tab lets once a day Unknown Ferrous Gluconate 324(38Fe) mg Tab lets 1 tab by mouth qd Unknown Aspirin Adult Low Dose 81mg Tablet s DR 1 tab by mouth twice a day Unknown 0 000 Renvela 800mg Tablets Mona Collazo, D.OEric Immunizations Description No Information Available Vital Signs Date Vital Result Comment 04/14/2021 1:04pm BP Systolic 100 mmHg BP Diastolic 56 mmHg Body Temperature 98.4 F Height 69 inches 5'9" Weight 271.00 lb stated BMI (Body Mass Index) 40.0 kg/m2 [place] Body Weight 160 lb Weight 122.926 kg BSA (Body Surface Area) 2.35 m2 06/30/2020 1:25pm BP Systolic 108 mmHg BP Diastolic 56 mmHg Heart Rate 76 /min Height 69 inches 5'9" Weight 325.00 lb BMI (Body Mass Index) 48.0 kg/m2 [place] Body Weight 160 lb Weight 147.420 kg BSA (Body Surface Area) 2.54 m2 Results Description No Information Available Procedures Date Code Description Status 04/14/2021 25591 Office/Outpatient Established Lo w MDM 20-29 Min Completed Medical Devices Description No Information Available Encounters Type Date Location Provider Dx Diagnosis Office Visit 04/14/2021 1:00p [facility] Romaine Tyson MD N18.4 Chronic kidney disease, stage 4 (severe) Assessments Date Code Description Provider 04/14/2021 N18.4 Chronic kidney disease, stage 4 (severe) Romaine Tyson MD Plan of Treatment Future Appointment(s):* 05/26/2021 9:00 am - Ana Sharpe MD at [facility] * 05/10/2021 7:30 am - Romaine Tyson MD at [facility] 04/14/2021 - Romaine Tyson MD* N18.4 Chronic kidney disease, stage 4 (severe) Functional Status Description No Information Available Mental Status Description No Information Available Referrals Description No Information Available
--- OUTSIDE RECORDS SUMMARY | 2021-05-10 06:26 | CCD ---
Continuity of Care Document (CCD) Created on: 04/14/2021 Jeffrey Chaudhary External Reference #: [id number] : [id number] Sex: Male Author Author Jeffrey TYSON MD Organization Unknown Address [address], [address] [place] [address] Phone [phone] Care Team Providers Care Veterinarian Assistant Name Role Phone Lanie Meng M.D. AUTM Gabriel Ng D.O. AUTM [phone] AUTM Unavailable Problems Active Problems Provider Date [...] every day Unknown Calcium 600 + D [id number] Tab lets once a day Unknown Ferrous [...] stated BMI (Body Mass Index) 40.0 kg/m2 [place] Body Weight 160 lb Weight 122.926 kg BSA (Body Surface Area) 2.35 m2 06/30/2020 1:25pm BP Systolic 108 mmHg BP Diastolic 56 mmHg Heart Rate 76 /min Height 69 inches 5'9" Weight 325.00 lb BMI (Body Mass Index) 48.0 kg/m2 [place] Body Weight 160 lb Weight 147.420 kg BSA (Body Surface Area) 2.54 m2 Results Description No Information Available Procedures Description No Information Available Medical Devices Description No Information Available Encounters Description No Information Available Assessments Description No Information Available Plan of Treatment No Information Available Functional Status Description No Information Available Mental Status Description No Information Available Referrals Description No Information Available
--- OUTSIDE RECORDS SUMMARY | 2021-05-10 06:26 | CCD ---
Author Author [facility] Organization [facility] Address Unknown Phone Unavailable Care Team Providers Care Truck Car And Bus Cleaner Name Role Phone Gabriel Ng Unavailable PROBLEMS Type Condition ICD9-CM Code [id number] Code Onset Dates Condition S tatus W/U Status Risk SNOMED Code Notes Problem Other specified hypothyroidism E03.8 Active confir med 80969707 Problem Lymphedema I89.0 Active confirmed 841749182 Problem Gout, unspecified cause, unspecified chronicity, unspecified site M10.9 Active confirmed 48130413 Problem Chronic venous hypertension (idiopathic) with ulcer of right lower extremity I87.311 Active confirmed 801599708 Problem Chronic venous hypertension (idiopathic) with ulcer of left lower extremity I87.312 Active confirmed 365894398 Problem Non-pressure chronic ulcer o f other part of right lower leg with fat layer exposed L97.812 Active confirmed 840811104 Problem Non-pressure chronic ulcer o f other part of left lower leg with fat layer exposed L97.822 Active confirmed 472115287 Problem Acute on chronic congestive heart failure, unspecified heart failure type I50.9 Active confirmed 247439812 Problem Anticoagulant long-term use Z79.01 Active confirmed 754919972 Problem Chronic kidney disease, stage 4 (severe) N18.4 Active confirmed 387290482 Problem Personal history of malignant neoplasm of prostate Z85.46 Active confirmed 725056352 Problem Type 2 diabetes mellitus with diabetic chronic kidney disease E11.22 Active confirmed 61760051 Problem S/P right hemicolectomy Z90.49 Active confirmed 367206010 Problem 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 Active confirmed 364028514 Problem Seborrheic dermatitis L21.9 Active confirmed 50913323 Problem Benign prostatic hyperplasia , unspecified whether lower urinary tract symptoms present N40.0 Active confirmed 674672137 Problem Hepatic cirrhosis, unspecified hepatic cirrhosis type K74.60 Active confirmed 73311249 Problem Hydroureter N13.4 Active confirmed 40897595 Problem Prostate cancer C61 Active confirmed 3990 33984 Problem Essential hypertension I10 Active confirmed 68068885 Problem Iron deficiency E61.1 Active confirmed 3524 0004 Problem Type 2 diabetes mellitus with other circulatory complicati on E11.59 Active confirmed 098380331 Problem Atrial fibrillation, unspecified type I48.91 Ac tive confirmed 11064905 Problem Other iron deficiency anemia D50.8 Active confirme d 98400715 Problem CKD (chronic kidney disease), stage 4 (severe) N18 .4 Active confirmed 614463321 Problem Urge incontinence N39.41 Active confirmed 87 434890 Problem Other specified disorders of kidney and ureter N28 .89 Active confirmed 226634501 Problem Stage 4 chronic kidney disease N18.4 Active confir med 792021148 Problem Iron deficiency anemia, unspecified iron deficiency an emia type D50.9 Active confirmed 51738803 Problem Benign prostatic hyperplasia with lower urinary tract symptoms N40.1 Active confirmed 124437392886916 Problem Kidney stone N20.0 Active confirmed 6989793 7 Problem Influenza vaccination declined Z28.21 Active confir med 023414900 Problem Hypertension, unspecified type I10 Active confir med 31147372 Problem Dyslipidemia E78.5 Active confirmed 2533202 07 Problem Hypothyroidism, unspecified type E03.9 Active conf irmed 54037776 Problem Heart failure with reduced ejection fraction I50.2 0 Active confirmed 991243694 Problem Cancer of sigmoid colon C18.7 Active confirmed 132072282 Problem Colostomy care Z43.3 Active confirmed 55776 2009 Problem End stage renal disease N18.6 Active confirmed 84693906 Problem Other cirrhosis of liver K74.69 Active confirmed 73635737 ALLERGIES Allergen (clinical drug ingredient) Drug/Non Drug Allergy do cumented on EMR Reaction Allergy Type Onset Date Status oysters Hives Non Drug Allergy Active ENCOUNTERS from 1940 to 2021-05-05 Encounter Location Date Provider Diagnosis [address] [phone] [place] [address] Apr, Gabriel Ng IMMUNIZATIONS Vaccine Route Administration Date Status Influenza 18 yrs & older Flublok Unknown Jul 29, 2018 Refused Influenza (High Dose 65 & up) Unknown Jul 05, 2017 Re fused Pneumococcal Adult 0.5mL Pneumovax 23 IM Intramuscular Apr 21, 2019 Administered TDAP 0.5mL (Boostrix) IM Intramuscular Mar 27, 2018 Administe red Pneumococcal 0.5mL Prevnar 13 IM Intramuscular Mar 27, 2018 A dministered Influenza 6mo & up Fluzone IM Intramuscular May 15, 2016 Admi nistered Influenza 6mo & up Fluzone Unknown October 14, 2015 Refus ed Influenza 6mo & up Fluzone Unknown October 12, 2014 Refus ed SOCIAL HISTORY Tobacco Use: Social History Observation Description Date Details (start date - stop date) Former Smoker Sex Assigned At : Social History Observation Description Sex Assigned At Unknown Education: Question Answer Notes Level of Education: High School Audit Question Answer Notes Total Score: 0 Interpretation: Alcohol Education Language: Question Answer Notes Languages spoken: Ukrainian Judaism: Question Answer Notes Judaism 03 Shinto Drug and Alcohol Question Answer Notes Total [...] Notes Start Da te End Date Status Glucometer E11.9 check sugars once a day for 30 day(s) Jul, Active Ferrous Gluconate 324 (38 Fe) MG 1 tab Orally Daily Not-Taking May Have - as directed Daily for 30 days Ostomy Supplies Sep, Active Cranberry 500 MG as directed Orally Active Vitamin B-12 5000 MCG 1 tablet Orally Once a day Active Spironolactone 25 MG 1 tablet Orally 2 pm Not-Taking Calcium 1 tab orally Daily Active Iron 25 MG as directed Orally Active Renvela 800 MG 1 tablet with meals Orally Three times a day Active OneTouch Test - as directed In Vitro E11.22 check daily for 30 d ay(s) Aug, Active glipiZIDE ER 2.5 MG 1 tablet with breakfast Orally Once a day for 90 days Active Protonix 40 MG 1 tablet Orally Daily Not-Taking ICaps Plus 1tab Orally daily for 30 day(s) Active Stool Softener Laxative 8.6-50 MG 1 tab Orally bid Not-Taking Allopurinol 300 MG 1 tablet Orally Once a day for 90 days Active Flomax 0.4 MG 1 capsule 30 minutes after t he same meal each day Orally Once a day for 90 days Not-Taking Baby Aspirin 81 MG 1 tablet Orally Once a day for 30 day(s) Active Potassium Chloride ER 10 MEQ 1 tablet with food Orally Once a day Not-Taking Vitamin D3 50 MCG (1999) 1 capsule Orally Once a day Not-Taking Tamsulosin HCl 0.4 MG 1 capsule Orally Once a day for 90 days Jun, Not-Taking metOLazone 2.5 MG 1 tablet Orally Sun, SUN, SUN Not-Taking Nadolol 40 MG 0.5 tablet Orally Once a day telles Not-Taking Levothyroxine Sodium 175 MCG 1 tablet on an empty stom ach in the morning Orally Once a day for 90 day(s) Not-Amador ing Metoprolol Succinate 25 MG 1 capsule Orally Once a day for 9 0 days dose decreased Jan, Not-Taking Torsemide 100 MG 1/2 tablet Orally bid Not-Taking Sucralfate 1 GM 1 tablet on an empty stomach Orally with meals a nd before bed Not-Taking PROCEDURES No Information RESULTS No Results REASON FOR VISIT refill MEDICAL (GENERAL) HISTORY Type Description Date Medical History A-fib: followed by Dr. Barrios, on ASA only because of history of bleed so was taken off Pradaxa Medical History hypertension: metoprolol by PCP, other medications are being managed by nephrology Medical History type II diabetes: A1c was 6. 21 Nov 2017, off meds for "last few years" as of 2018. 2019 was 7.1-->6.8-->7.0 Medical History LUTs, s/p [...] stones Medical History Prostate Cancer (as above) Medical History CKD, end stage, dialysis Medical History Ostomy secondary to colon cancer Surgical History Prostate Biopsy Surgical History Cauterization of bladder 04/2013 Surgical History partial colon resection 2016 Surgical History cataracts 2014 Surgical History cystoscopy with left retrograde pylelogr am, left ureterosocpe 11/2018 Surgical History cystoscopy with stent removal 02/12/2019 Surgical History colostomy 07/2020 Hospitalization History surgery related Hospitalization History [facility] - hematuria 09/2018 Hospitalization History [facility] 12/22/18-12/25/18 Hospitalization History Symptomatic Anemia - [facility] 05/31-05/23 Goals Section No Information Health Concerns No Information MEDICAL EQUIPMENT No Information MENTAL STATUS No Information FUNCTIONAL STATUS No Information ASSESSMENTS No Information PLAN OF TREATMENT Medication Medication Name Sig Start Date Stop Date OneTouch Test - as directed In Vitro E11.22 check daily for 30 day(s) Aug, Next Appt Details Provider Name:Gabriel Ng, 2021-06-21 03:30:00 PM, [id number] [facility], , [place], [address], Insurance Providers Payer Name Payer Address Payer Phone Insured Name Patient Relati onship to Insured Coverage Start Date Coverage End Date FELIC[address] AGUILAR [address] [facility] [id number] REBECCA SCHMIDT self
--- OUTSIDE RECORDS SUMMARY | 2021-05-10 06:27 | CCD | Continuity of Care Document ---
Author Author Jeffrey ALBERT MD Organization Unknown Address [address] [place] [address], [address] [place] [address] Phone [phone] Care Team Providers Care Wig Maker Name Role Phone [facility] Problems Active Problems Provider Date Essential hypertension Onset: 01/03/2021 Pure hypercholesterolemia Onset: 021 Atrial fibrillation Onset: 01/03/2021 Peripheral venous insufficiency Onset: 0 01/03/2021 Social History Type Date Description Comments Sex Unknown ETOH Use Denies alcohol use Tobacco Use Start: Unknown End: Patient is a former smoker Allergies, Adverse Reactions, Alerts Description No Known Drug Allergies Medications Active Medications SIG Qnty Indications Ordering Provide r Date Renvela 800mg Tablets take 1 tablets three times a day with meals 90tabs Lanie Meng M.D. 11/10/2020 Allopurinol 300mg Tablets Take 1 tablet by mouth once daily 30tabs M1A.30x0 Lanie Meng M.D. 2018 Levothyroxine Sodium 175mcg Tablet s 1 daily. Unknown Sucralfate 1gm Tablets take 1 tablet by mouth twice a day Unknown Metoprolol Succinate ER 50mg Tablets ER 24HR 1 by mouth every day Unknown [address] 1 by mouth every day Unknown Vitamin B 12 500mcg Tablets one tablet by mouth daily. Unknown Immunizations Description No Information Available Vital Signs Date Vital Result Comment 02/10/2021 2:08pm BP Systolic Right Arm 80 mmHg BP Diastolic Right Arm 50 mmHg BP Systolic Left Arm 80 mmHg BP Diastolic Left Arm 50 mmHg Body Temperature 98.0 F Height 68 inches 5'8" Weight 255.00 lb Weight 115.668 kg BMI (Body Mass Index) 38.8 kg/m2 12/30/2020 2:55pm Heart Rate 75 /min Body Temperature 98.1 F Height 70 inches 5'10" Weight 258.44 lb Weight 117.226 kg O2 % BldC Oximetry 95 % BMI (Body Mass Index) 37.1 kg/m2 Results Test Acquired Date Facility Test Result H/L Range Note Xray 02/10/2021 [facility] Duplex Scan Artl Inft&Vein O/F Hemo Compl Bi STD <pending> Procedures Date Code Description Status 02/10/2021 96372 Duplex Scan Artl Infl&Arturo O/F He mo Compl Bi STD Completed Medical Devices Description No Information Available Encounters Type Date Location Provider Dx Diagnosis Office Visit 02/10/2021 3:30p Main Office Alphonse Albert MD N18.6 End stage renal disease Assessments Date Code Description Provider 02/10/2021 N18.6 End stage renal disease Alphonse izquierdo MD 02/10/2021 Z01.818 Encounter for other preprocedura l examination Alphonse Albert MD 02/10/2021 Z01.818 Encounter for other preprocedura l examination Vascular Lab 02/10/2021 N18.6 End stage renal disease Alphonse izquierdo MD 02/10/2021 N18.6 End stage renal disease Vascular Lab Plan of Treatment No Information Available Functional Status Description No Information Available Mental Status Description No Information Available Referrals Description No Information Available
--- OUTSIDE RECORDS SUMMARY | 2021-05-10 06:27 | CCD ---
Author Author [facility] Organization [facility] Address Unknown Phone Unavailable Care Team Providers Care Cutter Head Sharpener Name Role Phone Gabriel Ng Unavailable PROBLEMS Type Condition ICD9-CM Code DHV38-XM Code Onset Dates Condition S tatus W/U Status Risk SNOMED Code Notes Problem Other specified hypothyroidism E03.8 Active confir med 50130510 Problem Lymphedema I89.0 Active confirmed 778912220 Problem Gout, unspecified cause, unspecified chronicity, unspecified site M10.9 Active confirmed 40828268 Problem Chronic venous hypertension (idiopathic) with ulcer of right lower extremity I87.311 Active confirmed 774494784 Problem Chronic venous hypertension (idiopathic) with ulcer of left lower extremity I87.312 Active confirmed 993780202 Problem Non-pressure chronic ulcer o f other part of right lower leg with fat layer exposed L97.812 Active confirmed 190221945 Problem Non-pressure chronic ulcer o f other part of left lower leg with fat layer exposed L97.822 Active confirmed 530511508 Problem Acute on chronic congestive heart failure, unspecified heart failure type I50.9 Active confirmed 141838711 Problem Anticoagulant long-term use Z79.01 Active confirmed 570399053 Problem Chronic kidney disease, stage 4 (severe) N18.4 Active confirmed 880249191 Problem Personal history of malignant neoplasm of prostate Z85.46 Active confirmed 701473717 Problem Type 2 diabetes mellitus with diabetic chronic kidney disease E11.22 Active confirmed 06824046 Problem S/P right hemicolectomy Z90.49 Active confirmed 491321598 Problem 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 Active confirmed 088992241 Problem Seborrheic dermatitis L21.9 Active confirmed 18448690 Problem Benign prostatic hyperplasia , unspecified whether lower urinary tract symptoms present N40.0 Active confirmed 886600412 Problem Hepatic cirrhosis, unspecified hepatic cirrhosis type K74.60 Active confirmed 97271128 Problem Hydroureter N13.4 Active confirmed 32795371 Problem Prostate cancer C61 Active confirmed 3990 53019 Problem Essential hypertension I10 Active confirmed 65506063 Problem Iron deficiency E61.1 Active confirmed 3524 0004 Problem Type 2 diabetes mellitus with other circulatory complicati on E11.59 Active confirmed 299107598 Problem Atrial fibrillation, unspecified type I48.91 Ac tive confirmed 11532079 Problem Other iron deficiency anemia D50.8 Active confirme d 38160499 Problem CKD (chronic kidney disease), stage 4 (severe) N18 .4 Active confirmed 446296047 Problem Urge incontinence N39.41 Active confirmed 87 012079 Problem Other specified disorders of kidney and ureter N28 .89 Active confirmed 366261134 Problem Stage 4 chronic kidney disease N18.4 Active confir med 305595319 Problem Iron deficiency anemia, unspecified iron deficiency an emia type D50.9 Active confirmed 68427004 Problem Benign prostatic hyperplasia with lower urinary tract symptoms N40.1 Active confirmed 157155777157764 Problem Kidney stone N20.0 Active confirmed 5065790 7 Problem Influenza vaccination declined Z28.21 Active confir med 406470232 Problem Hypertension, unspecified type I10 Active confir med 59183885 Problem Dyslipidemia E78.5 Active confirmed 9564625 07 Problem Hypothyroidism, unspecified type E03.9 Active conf irmed 99572482 Problem Heart failure with reduced ejection fraction I50.2 0 Active confirmed 771330870 Problem Cancer of sigmoid colon C18.7 Active confirmed 281372672 Problem Colostomy care Z43.3 Active confirmed 49135 2009 Problem End stage renal disease N18.6 Active confirmed 88605424 Problem Other cirrhosis of liver K74.69 Active confirmed 86367649 ALLERGIES Allergen (clinical drug ingredient) Drug/Non Drug Allergy do cumented on EMR Reaction Allergy Type Onset Date Status oysters Hives Non Drug Allergy Active ENCOUNTERS from 1940 to 2021-03-17 Encounter Location Date Provider Diagnosis [address] [phone] [place] [address] Feb, Gabriel Ng IMMUNIZATIONS Vaccine Route Administration Date [...] Education Language: Question Answer Notes Languages spoken: Hebrew Anabaptist: Question Answer Notes Anabaptist 03 Oriental Orthodox Drug and Alcohol Question Answer Notes Total [...] Notes Start Da te End Date Status ICaps Plus 1tab Orally daily for 30 day(s) Active glipiZIDE ER 2.5 MG 1 tablet with breakfast Orally Once a day for 90 days Active Flomax 0.4 MG 1 capsule 30 minutes after t he same meal each day Orally Once a day for 90 days Not-Taking Vitamin D3 50 MCG (2000 UT) 1 capsule Orally Once a day Not-Taking Cranberry 500 MG as directed Orally Active Tamsulosin HCl 0.4 MG 1 capsule Orally Once a day for 90 days Jun, Not-Taking Nadolol 40 MG 0.5 tablet Orally Once a day telles Not-Taking Ferrous Gluconate 324 (38 Fe) MG 1 tab Orally Daily Not-Taking Vitamin B-12 5000 MCG 1 tablet Orally Once a day Active Calcium 1 tab orally Daily Active metOLazone 2.5 MG 1 tablet Orally Sun, SUN, SUN Not-Taking Glucometer E11.9 check sugars once a day for 30 day(s) Jul, Active Stool Softener Laxative 8.6-50 MG 1 tab Orally bid Not-Taking Renvela 800 MG 1 tablet with meals Orally Three times a day Active May Have - as directed Daily for 30 days Ostomy Supplies Sep, Active Spironolactone 25 MG 1 tablet Orally 2 pm Not-Taking Potassium Chloride ER 10 MEQ 1 tablet with food Orally Once a day Not-Taking Allopurinol 300 MG 1 tablet Orally Once a day for 90 days Active OneTouch Test - as directed In Vitro E11.22 check daily for 30 d ay(s) Aug, Active Baby Aspirin 81 MG 1 tablet Orally Once a day for 30 day(s) Active Torsemide 100 MG 1/2 tablet Orally bid Not-Taking Metoprolol Succinate 25 MG 1 capsule Orally Once a day for 9 0 days dose decreased Jan, Not-Taking Sucralfate 1 GM 1 tablet on an empty stomach Orally with meals a nd before bed Not-Taking Levothyroxine Sodium 175 MCG 1 tablet on an empty stom ach in the morning Orally Once a day for 90 day(s) Not-Amador ing Protonix 40 MG 1 tablet Orally Daily Not-Taking PROCEDURES No Information RESULTS No Results REASON FOR VISIT nephrology MEDICAL (GENERAL) HISTORY Type Description Date Medical [...] 07/2020 Hospitalization History surgery related Hospitalization History [facility] - hematuria 09/2018 Hospitalization History [facility] 12/22/18-12/25/18 Hospitalization History Symptomatic Anemia - [facility] 05/31-05/23 Goals Section No Information Health Concerns No Information MEDICAL EQUIPMENT No Information MENTAL STATUS No Information FUNCTIONAL STATUS No Information ASSESSMENTS No Information PLAN OF TREATMENT Next Appt Details Provider Name:Gabriel Ng, 2021-06-21 03:30:00 PM, [id number] [facility], , [place], [address], Insurance Providers Payer Name Payer Address Payer Phone Insured Name Patient Relati onship to Insured Coverage Start Date Coverage End Date [employer] PPO [address] [address] [facility] [phone] REBECCA SCHMIDT self
--- OUTSIDE RECORDS SUMMARY | 2021-05-10 06:27 | CCD ---
Author Author [facility] Organization [facility] Address Unknown Phone Unavailable Care Team Providers Care Pharmacy Ancillary Name Role Phone Gabriel Ng Unavailable PROBLEMS Type Condition ICD9-CM Code [id number] Code Onset Dates Condition S tatus W/U Status Risk SNOMED Code Notes Problem Other specified hypothyroidism E03.8 Active confir med 73710757 Problem Lymphedema I89.0 Active confirmed 148503225 Problem Gout, unspecified cause, unspecified chronicity, unspecified site M10.9 Active confirmed 34014979 Problem Chronic venous hypertension (idiopathic) with ulcer of right lower extremity I87.311 Active confirmed 241942337 Problem Chronic venous hypertension (idiopathic) with ulcer of left lower extremity I87.312 Active confirmed 382786711 Problem Non-pressure chronic ulcer o f other part of right lower leg with fat layer exposed L97.812 Active confirmed 876514817 Problem Non-pressure chronic ulcer o f other part of left lower leg with fat layer exposed L97.822 Active confirmed 070373231 Problem Acute on chronic congestive heart failure, unspecified heart failure type I50.9 Active confirmed 717204540 Problem Anticoagulant long-term use Z79.01 Active confirmed 678308742 Problem Chronic kidney disease, stage 4 (severe) N18.4 Active confirmed 824765380 Problem Personal history of malignant neoplasm of prostate Z85.46 Active confirmed 143372528 Problem Type 2 diabetes mellitus with diabetic chronic kidney disease E11.22 Active confirmed 74604949 Problem S/P right hemicolectomy Z90.49 Active confirmed 225876256 Problem 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 Active confirmed 352866193 Problem Seborrheic dermatitis L21.9 Active confirmed 31175790 Problem Benign prostatic hyperplasia , unspecified whether lower urinary tract symptoms present N40.0 Active confirmed 187815114 Problem Hepatic cirrhosis, unspecified hepatic cirrhosis type K74.60 Active confirmed 38374175 Problem Hydroureter N13.4 Active confirmed 89953643 Problem Prostate cancer C61 Active confirmed 3990 27539 Problem Essential hypertension I10 Active confirmed 85727936 Problem Iron deficiency E61.1 Active confirmed 3524 0004 Problem Type 2 diabetes mellitus with other circulatory complicati on E11.59 Active confirmed 197656769 Problem Atrial fibrillation, unspecified type I48.91 Ac tive confirmed 46080102 Problem Other iron deficiency anemia D50.8 Active confirme d 60352324 Problem CKD (chronic kidney disease), stage 4 (severe) N18 .4 Active confirmed 791043504 Problem Urge incontinence N39.41 Active confirmed 87 741784 Problem Other specified disorders of kidney and ureter N28 .89 Active confirmed 467216546 Problem Stage 4 chronic kidney disease N18.4 Active confir med 016913042 Problem Iron deficiency anemia, unspecified iron deficiency an emia type D50.9 Active confirmed 67810206 Problem Benign prostatic hyperplasia with lower urinary tract symptoms N40.1 Active confirmed 027991408466952 Problem Kidney stone N20.0 Active confirmed 7615857 7 Problem Influenza vaccination declined Z28.21 Active confir med 685883516 Problem Hypertension, unspecified type I10 Active confir med 35406939 Problem Dyslipidemia E78.5 Active confirmed 6053862 07 Problem Hypothyroidism, unspecified type E03.9 Active conf irmed 46142227 Problem Heart failure with reduced ejection fraction I50.2 0 Active confirmed 662170651 Problem Cancer of sigmoid colon C18.7 Active confirmed 483623489 Problem Colostomy care Z43.3 Active confirmed 19820 2009 Problem End stage renal disease N18.6 Active confirmed 63638085 Problem Other cirrhosis of liver K74.69 Active confirmed ALLERGIES Allergen (clinical drug ingredient) Drug/Non Drug Allergy do cumented on EMR Reaction Allergy Type Onset Date Status oysters Hives Non Drug Allergy Active ENCOUNTERS from 1940 to 2021-02-09 Encounter Location Date Provider Diagnosis [address] [phone] [place] [address] Jan, Gabriel Ng Gout, unspecified cause, uns pecified chronicity, unspecified site M10.9 IMMUNIZATIONS Vaccine Route Administration Date Status Influenza [...] Education Language: Question Answer Notes Languages spoken: Pashto Congregation: Question Answer Notes Congregation 03 Baptism Drug and Alcohol Question Answer [...] 90 days Not-Taking Vitamin D3 50 MCG (1999 UT) 1 capsule Orally Once a day Not-Taking Baby Aspirin 81 MG 1 tablet Orally Once a day for 30 day(s) Active Protonix 40 MG 1 tablet Orally Daily Not-Taking Levothyroxine Sodium 175 MCG 1 tablet on an empty stom ach in the morning Orally Once a day for 90 day(s) Not-Amador ing Allopurinol 300 MG 1 tablet Orally Once a day for 90 days Active Torsemide 100 MG 1/2 tablet Orally bid Active May Have - as directed Daily for 30 days Sep, Active Renvela 800 MG 1 tablet with meals Orally Three times a day Active Sucralfate 1 GM 1 tablet on an empty stomach Orally with meals a nd before bed Active Potassium Chloride ER 10 MEQ 1 tablet with food Orally Once a day Not-Taking Metoprolol Succinate 25 MG 1 capsule Orally Once a day for 90 da ys 13 Jan, 2021 Active Ferrous Gluconate 324 (38 Fe) MG 1 tab Orally Daily Not-Taking ICaps Plus 1tab Orally daily for 30 day(s) Active Stool Softener Laxative 8.6-50 MG 1 tab Orally bid Not-Taking Tamsulosin HCl 0.4 MG 1 capsule Orally Once a day for 90 days Jun, Not-Taking Glucometer E11.9 check sugars once a day for 30 day(s) Jul, Active Spironolactone 25 MG 1 tablet Orally 2 pm Not-Taking Calcium 1 tab orally Daily Active Nadolol 40 MG 0.5 tablet Orally Once a day Not-Taking glipiZIDE ER 2.5 MG 1 tablet with breakfast Orally Once a day for 90 days Not-Taking OneTouch Test - as directed In Vitro E11.22 check daily for 30 d ay(s) Aug, Active Vitamin B-12 5000 MCG 1 tablet Orally Once a day Active metOLazone 2.5 MG 1 tablet Orally Sun, SUN, SUN Active PROCEDURES No Information RESULTS No Results [...] 07/2020 Hospitalization History surgery related Hospitalization History [facility] - hematuria 09/2018 Hospitalization History [facility] 12/22/18-12/25/18 Hospitalization History Symptomatic Anemia - [facility] 05/31-05/23 Goals Section No Information Health Concerns No Information MEDICAL EQUIPMENT No Information MENTAL STATUS No Information FUNCTIONAL STATUS No Information ASSESSMENTS Encounter Date Diagnosis Assessment Notes Treatment Notes Treatm ent Clinical Notes Jan, Gout, unspecified cause, uns pecified chronicity, unspecified site (ICD-10 - M10.9) PLAN OF TREATMENT Medication Medication Name Sig Start Date Stop Date Allopurinol 300 MG 1 tablet Orally Once a day for 90 days Metoprolol Succinate 25 MG 1 capsule Orally Once a day for 90 da ys Jan, Next Appt Details Provider Name:Gabriel Ng, 2021-03-17 09:30:00 AM, [id number] [facility], , [place], [address], Insurance Providers Payer Name Payer Address Payer Phone Insured Name Patient Relati onship to Insured Coverage Start Date Coverage End Date [employer] PPO [address] [address] [facility] [phone] REBECCA SCHMIDT self
--- OUTSIDE RECORDS SUMMARY | 2021-05-10 06:27 | CCD ---
Author Author [facility] Organization [facility] Address Unknown Phone Unavailable Care Team Providers Care Aboriginal Education Worker Coordinator Name Role Phone Gabriel Ng Unavailable PROBLEMS Type Condition ICD9-CM Code LBW14-RO Code Onset Dates Condition S tatus W/U Status Risk SNOMED Code Notes Problem Other specified hypothyroidism E03.8 Active confir med 62735232 Problem Lymphedema I89.0 Active confirmed 006806417 Problem Gout, unspecified cause, unspecified chronicity, unspecified site M10.9 Active confirmed 41884008 Problem Chronic venous hypertension (idiopathic) with ulcer of right lower extremity I87.311 Active confirmed 273843771 Problem Chronic venous hypertension (idiopathic) with ulcer of left lower extremity I87.312 Active confirmed 531875966 Problem Non-pressure chronic ulcer o f other part of right lower leg with fat layer exposed L97.812 Active confirmed 454086497 Problem Non-pressure chronic ulcer o f other part of left lower leg with fat layer exposed L97.822 Active confirmed 094961644 Problem Acute on chronic congestive heart failure, unspecified heart failure type I50.9 Active confirmed 356722462 Problem Anticoagulant long-term use Z79.01 Active confirmed 909145332 Problem Chronic kidney disease, stage 4 (severe) N18.4 Active confirmed 137965750 Problem Personal history of malignant neoplasm of prostate Z85.46 Active confirmed 079965876 Problem Type 2 diabetes mellitus with diabetic chronic kidney disease E11.22 Active confirmed 42426094 Problem S/P right hemicolectomy Z90.49 Active confirmed 919850217 Problem 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 Active confirmed 836245777 Problem Seborrheic dermatitis L21.9 Active confirmed 86724344 Problem Benign prostatic hyperplasia , unspecified whether lower urinary tract symptoms present N40.0 Active confirmed 214613695 Problem Hepatic cirrhosis, unspecified hepatic cirrhosis type K74.60 Active confirmed 02060391 Problem Hydroureter N13.4 Active confirmed 71309092 Problem Prostate cancer C61 Active confirmed 3990 91941 Problem Essential hypertension I10 Active confirmed 55788935 Problem Iron deficiency E61.1 Active confirmed 3524 0004 Problem Type 2 diabetes mellitus with other circulatory complicati on E11.59 Active confirmed 370599796 Problem Atrial fibrillation, unspecified type I48.91 Ac tive confirmed 23524933 Problem Other iron deficiency anemia D50.8 Active confirme d 25083346 Problem CKD (chronic kidney disease), stage 4 (severe) N18 .4 Active confirmed 864142462 Problem Urge incontinence N39.41 Active confirmed 87 718711 Problem Other specified disorders of kidney and ureter N28 .89 Active confirmed 478709863 Problem Stage 4 chronic kidney disease N18.4 Active confir med 336924811 Problem Iron deficiency anemia, unspecified iron deficiency an emia type D50.9 Active confirmed 22863435 Problem Benign prostatic hyperplasia with lower urinary tract symptoms N40.1 Active confirmed 281168274610430 Problem Kidney stone N20.0 Active confirmed 0486192 7 Problem Influenza vaccination declined Z28.21 Active confir med 755884467 Problem Hypertension, unspecified type I10 Active confir med 45615243 Problem Dyslipidemia E78.5 Active confirmed 8713342 07 Problem Hypothyroidism, unspecified type E03.9 Active conf irmed 74248536 Problem Heart failure with reduced ejection fraction I50.2 0 Active confirmed 874139747 Problem Cancer of sigmoid colon C18.7 Active confirmed 607483537 Problem Colostomy care Z43.3 Active confirmed 63574 2009 Problem End stage renal disease N18.6 Active confirmed 44404760 Problem Other cirrhosis of liver K74.69 Active confirmed 86143900 ALLERGIES Allergen (clinical drug ingredient) Drug/Non Drug Allergy do cumented on EMR Reaction Allergy Type Onset Date Status oysters Hives Non Drug Allergy Active ENCOUNTERS from 1940 to 2021-03-17 Encounter Location Date Provider Diagnosis [address] [phone] [place] [address] Feb, Gabriel Ng IMMUNIZATIONS Vaccine Route Administration [...] Education Language: Question Answer Notes Languages spoken: Nepali Muslim: Question Answer Notes Muslim 03 Church Drug and Alcohol Question Answer Notes Total [...] Information RESULTS No Results REASON FOR VISIT Medications MEDICAL (GENERAL) HISTORY Type Description Date Medical [...] 07/2020 Hospitalization History surgery related Hospitalization History [facility] - hematuria 09/2018 Hospitalization History [facility] 12/22/18-12/25/18 Hospitalization History Symptomatic Anemia - [facility] 05/31-05/23 Goals Section No Information Health Concerns No Information MEDICAL EQUIPMENT No Information MENTAL STATUS No Information FUNCTIONAL STATUS No Information ASSESSMENTS No Information PLAN OF TREATMENT Next Appt Details Provider Name:Gabriel Ng, 2021-06-21 03:30:00 PM, [id number] [facility], , [place], [address], Insurance Providers Payer Name Payer Address Payer Phone Insured Name Patient Relati onship to Insured Coverage Start Date Coverage End Date [employer] PPO [address] [address] [facility] [phone] REBECCA SCHMIDT self
--- OUTSIDE RECORDS SUMMARY | 2021-05-10 06:27 | CCD ---
Author Author [facility] Organization [facility] Address Unknown Phone Unavailable Care Team Providers Care Certified Detention Deputy Name Role Phone Gabriel Ng Unavailable PROBLEMS Type Condition ICD9-CM Code XFR47-AC Code Onset Dates Condition S tatus W/U Status Risk SNOMED Code Notes Problem Other specified hypothyroidism E03.8 Active confir med 23766936 Problem Lymphedema I89.0 Active confirmed 706057649 Problem Gout, unspecified cause, unspecified chronicity, unspecified site M10.9 Active confirmed 10927031 Problem Chronic venous hypertension (idiopathic) with ulcer of right lower extremity I87.311 Active confirmed 834539713 Problem Chronic venous hypertension (idiopathic) with ulcer of left lower extremity I87.312 Active confirmed 774190005 Problem Non-pressure chronic ulcer o f other part of right lower leg with fat layer exposed L97.812 Active confirmed 609594199 Problem Non-pressure chronic ulcer o f other part of left lower leg with fat layer exposed L97.822 Active confirmed 531371428 Problem Acute on chronic congestive heart failure, unspecified heart failure type I50.9 Active confirmed 016886917 Problem Anticoagulant long-term use Z79.01 Active confirmed 860373553 Problem Chronic kidney disease, stage 4 (severe) N18.4 Active confirmed 654581489 Problem Personal history of malignant neoplasm of prostate Z85.46 Active confirmed 089583180 Problem Type 2 diabetes mellitus with diabetic chronic kidney disease E11.22 Active confirmed 39049279 Problem S/P right hemicolectomy Z90.49 Active confirmed 079844438 Problem 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 Active confirmed 341156912 Problem Seborrheic dermatitis L21.9 Active confirmed 56661954 Problem Benign prostatic hyperplasia , unspecified whether lower urinary tract symptoms present N40.0 Active confirmed 547512927 Problem Hepatic cirrhosis, unspecified hepatic cirrhosis type K74.60 Active confirmed 21516672 Problem Hydroureter N13.4 Active confirmed 64529909 Problem Prostate cancer C61 Active confirmed 3990 75913 Problem Essential hypertension I10 Active confirmed 57671618 Problem Iron deficiency E61.1 Active confirmed 3524 0004 Problem Type 2 diabetes mellitus with other circulatory complicati on E11.59 Active confirmed 300357516 Problem Atrial fibrillation, unspecified type I48.91 Ac tive confirmed 04411497 Problem Other iron deficiency anemia D50.8 Active confirme d 41356167 Problem CKD (chronic kidney disease), stage 4 (severe) N18 .4 Active confirmed 002166375 Problem Urge incontinence N39.41 Active confirmed 87 517257 Problem Other specified disorders of kidney and ureter N28 .89 Active confirmed 717325279 Problem Stage 4 chronic kidney disease N18.4 Active confir med 043270999 Problem Iron deficiency anemia, unspecified iron deficiency an emia type D50.9 Active confirmed 32463004 Problem Benign prostatic hyperplasia with lower urinary tract symptoms N40.1 Active confirmed 558826845826946 Problem Kidney stone N20.0 Active confirmed 8425656 7 Problem Influenza vaccination declined Z28.21 Active confir med 827434502 Problem Hypertension, unspecified type I10 Active confir med 11497874 Problem Dyslipidemia E78.5 Active confirmed 9941194 07 Problem Hypothyroidism, unspecified type E03.9 Active conf irmed 49148055 Problem Heart failure with reduced ejection fraction I50.2 0 Active confirmed 936634482 Problem Cancer of sigmoid colon C18.7 Active confirmed 922727484 Problem Colostomy care Z43.3 Active confirmed 79676 2009 Problem End stage renal disease N18.6 Active confirmed 12430175 Problem Other cirrhosis of liver K74.69 Active confirmed 34913785 ALLERGIES Allergen (clinical drug ingredient) Drug/Non Drug Allergy do cumented on EMR Reaction Allergy Type Onset Date Status oysters Hives Non Drug Allergy Active ENCOUNTERS from 1940 to 2021-03-22 Encounter Location Date Provider Diagnosis [address] [phone] [place] [address] Feb, Gabriel Ng Heart failure with reduced e jection fraction I50.20 ; Essential hypertension I10 ; Hypothyroidism, unspecified type E03.9 ; Medication management Z79.899 ; End stage renal disease N18.6 and Prostate cancer C61 IMMUNIZATIONS Vaccine Route Administration Date Status Pneumococcal Adult 0.5mL Pneumovax 23 IM Intramuscular Apr 21, 2019 Administered Influenza 18 yrs & older Flublok Unknown Jul 29, 2018 Refused TDAP 0.5mL (Boostrix) IM Intramuscular Mar 27, 2018 Administe red Influenza (High Dose 65 & up) Unknown Jul 05, 2017 Re fused Pneumococcal 0.5mL Prevnar 13 IM Intramuscular Mar [...] Education Language: Question Answer Notes Languages spoken: Sinhala Anabaptism: Question Answer Notes Anabaptism 03 Tenriism Drug and Alcohol Question Answer [...] FOR REFERRAL No Information VITAL SIGNS Weight 277.6 lbs Feb, Height 70 in Feb, BMI 39.83 kg/m2 Feb, Heart Rate 99 /min Feb, Respiratory Rate 17 /min Feb, Temperature 99.0 degrees Fahrenheit Feb, Oximetry 96 Feb, Blood pressure systolic 96 mm Hg Feb, Blood pressure diastolic 52 mm Hg Feb, MEDICATIONS Medication SIG (Take, Route, Frequency, Duration) [...] RESULTS No Results REASON FOR VISIT 2 mth MEDICAL (GENERAL) HISTORY Type Description Date Medical [...] 07/2020 Hospitalization History surgery related Hospitalization History [facility] - hematuria 09/2018 Hospitalization History [facility] 12/22/18-12/25/18 Hospitalization History Symptomatic Anemia - [facility] 05/31-05/23 Goals Section No Information Health Concerns No Information MEDICAL EQUIPMENT No Information MENTAL STATUS No Information FUNCTIONAL STATUS No Information ASSESSMENTS Encounter Date Diagnosis Assessment Notes Treatment Notes Treatm ent Clinical Notes Feb, Heart failure with reduced ejection fraction (IC D-10 - I50.20) Unsure when follow up with cardology. Not on diuretic anymore. Unsure why this was stopped. Will attempt to get nephrology records. Feb, Essential hypertension (ICD-10 - I10) BP low today, has been low at nephrology. Patient not on any HTN medication at this time. May need diuretic however since BP low, hold off for now. Feb, Hypothyroidism, unspecified type (ICD-10 - E03.9 ) Patient has been off thyroid medication for months. Last lab was controlled. Repeat lab. If hypothyroid will discuss restarting medication. Feb, Medication management (ICD-10 - Z79.899) Reviewed medication he brought in. Reviewed that glipizide not for diuretic. Get recent nephrology record to monitor any changes in medications. Feb, End stage renal disease (ICD-10 - N18.6) Continue with dialysis and follow up with nephrology. Feb, Prostate cancer (ICD-10 - C61) Patient missed visits. Discussed to call their office to reschedule. PLAN OF TREATMENT Treatment Notes Assessment Notes Clinical Notes Heart failure with reduced ejection fraction Unsure when follow up with cardology. Not on diuretic anymore. Unsure why this was stopped.Will attempt to get nephrology records. Essential hypertension BP low today, has been low at nephrology. Patient not on any HTN medication at this time. May need diuretic however since BP low, hold off for now. Hypothyroidism, unspecified type Patient has been off thyroid medication for months. Last lab was controlled. Repeat lab. If hypothyroid will discuss restarting medication. Medication management Reviewed medicatio n he brought in. Reviewed that glipizide not for diuretic. Get recent nephrology record to monitor any changes in medications. End stage renal disease Continue with di alysis and follow up with nephrology. Prostate cancer Patient missed visit s. Discussed to call their office to reschedule. Treatment Notes Test Name Order Date TSH 2021-03-17 Next Appt Details 3 mth Reason: Provider Name:Gabriel Ng, 2021-06-21 03:30:00 PM, [address] [facility], , [place], [address], Insurance Providers Payer Name Payer Address Payer Phone Insured Name Patient Relati onship to Insured Coverage Start Date Coverage End Date [employer] PPO [address] [address] [facility] [phone] REBECCA SCHMIDT self
--- OUTSIDE RECORDS SUMMARY | 2021-05-10 06:27 | CCD ---
Continuity of Care Document (CCD) Created on: 02/16/2021 Jeffrey Chaudhary External Reference #: [id number] : [id number] Sex: Male Author Author [facility] Organization Unknown Address [address] [place] [id number] Phone Unavailable Care Team Providers Care Dental Hygiene Teacher Name Role Phone [facility] Problems Active Problems Provider Date Essential hypertension [...] <pending> Procedures Date Code Description Status 02/10/2021 40506 Duplex Scan Artl Infl&Arturo O/F He mo Compl Bi STD Completed Medical Devices Description No Information Available Encounters Description No Information Available Assessments Date Code Description Provider 02/10/2021 Z01.818 Encounter for other preprocedura l [...]
--- OUTSIDE RECORDS SUMMARY | 2021-05-10 06:27 | CCD ---
Author Author [facility] Organization [facility] Address Unknown Phone Unavailable Care Team Providers Care Brick Maker Name Role Phone Gabriel Ng Unavailable PROBLEMS Type Condition ICD9-CM Code QTL43-IQ Code Onset Dates Condition S tatus W/U Status Risk SNOMED Code Notes Problem Other specified hypothyroidism E03.8 Active confir med 78764067 Problem Lymphedema I89.0 Active confirmed 911973160 Problem Gout, unspecified cause, unspecified chronicity, unspecified site M10.9 Active confirmed 86664505 Problem Chronic venous hypertension (idiopathic) with ulcer of right lower extremity I87.311 Active confirmed 325049312 Problem Chronic venous hypertension (idiopathic) with ulcer of left lower extremity I87.312 Active confirmed 003036004 Problem Non-pressure chronic ulcer o f other part of right lower leg with fat layer exposed L97.812 Active confirmed 235085070 Problem Non-pressure chronic ulcer o f other part of left lower leg with fat layer exposed L97.822 Active confirmed 840620056 Problem Acute on chronic congestive heart failure, unspecified heart failure type I50.9 Active confirmed 604214299 Problem Anticoagulant long-term use Z79.01 Active confirmed 701582293 Problem Chronic kidney disease, stage 4 (severe) N18.4 Active confirmed 013775150 Problem Personal history of malignant neoplasm of prostate Z85.46 Active confirmed 706288602 Problem Type 2 diabetes mellitus with diabetic chronic kidney disease E11.22 Active confirmed 39981550 Problem S/P right hemicolectomy Z90.49 Active confirmed 539598461 Problem 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 Active confirmed 466100260 Problem Seborrheic dermatitis L21.9 Active confirmed 82466783 Problem Benign prostatic hyperplasia , unspecified whether lower urinary tract symptoms present N40.0 Active confirmed 868389377 Problem Hepatic cirrhosis, unspecified hepatic cirrhosis type K74.60 Active confirmed 12108242 Problem Hydroureter N13.4 Active confirmed 14140833 Problem Prostate cancer C61 Active confirmed 3990 43758 Problem Essential hypertension I10 Active confirmed 52539747 Problem Iron deficiency E61.1 Active confirmed 3524 0004 Problem Type 2 diabetes mellitus with other circulatory complicati on E11.59 Active confirmed 933797910 Problem Atrial fibrillation, unspecified type I48.91 Ac tive confirmed 55500768 Problem Other iron deficiency anemia D50.8 Active confirme d 68160401 Problem CKD (chronic kidney disease), stage 4 (severe) N18 .4 Active confirmed 119491387 Problem Urge incontinence N39.41 Active confirmed 87 488336 Problem Other specified disorders of kidney and ureter N28 .89 Active confirmed 928306476 Problem Stage 4 chronic kidney disease N18.4 Active confir med 597872913 Problem Iron deficiency anemia, unspecified iron deficiency an emia type D50.9 Active confirmed 29424030 Problem Benign prostatic hyperplasia with lower urinary tract symptoms N40.1 Active confirmed 737401594577262 Problem Kidney stone N20.0 Active confirmed 4297295 7 Problem Influenza vaccination declined Z28.21 Active confir med 463545591 Problem Hypertension, unspecified type I10 Active confir med 90017238 Problem Dyslipidemia E78.5 Active confirmed 1598055 07 Problem Hypothyroidism, unspecified type E03.9 Active conf irmed 67252124 Problem Heart failure with reduced ejection fraction I50.2 0 Active confirmed 058820974 Problem Cancer of sigmoid colon C18.7 Active confirmed 266547277 Problem Colostomy care Z43.3 Active confirmed 41030 2009 Problem End stage renal disease N18.6 Active confirmed 80024069 Problem Other cirrhosis of liver K74.69 Active confirmed 99904837 ALLERGIES Allergen (clinical drug ingredient) Drug/Non Drug Allergy do cumented on EMR Reaction Allergy Type Onset Date Status oysters Hives Non Drug Allergy Active ENCOUNTERS from 1940 to 2021-04-01 Encounter Location Date Provider Diagnosis [address] [phone] [place] [address] Mar, Gabriel Ng IMMUNIZATIONS Vaccine Route Administration Date [...] Education Language: Question Answer Notes Languages spoken: Wolof Shinto: Question Answer Notes Shinto 03 [facility] Drug and Alcohol Question Answer Notes Total [...] Information RESULTS No Results REASON FOR VISIT requested medication MEDICAL (GENERAL) HISTORY Type Description Date Medical [...] 07/2020 Hospitalization History surgery related Hospitalization History [facility] - hematuria 09/2018 Hospitalization History [facility] 12/22/18-12/25/18 Hospitalization History Symptomatic Anemia - [facility] 05/31-05/23 Goals Section No Information Health Concerns No Information MEDICAL EQUIPMENT No Information MENTAL STATUS No Information FUNCTIONAL STATUS No Information ASSESSMENTS No Information PLAN OF TREATMENT Next Appt Details Provider Name:Gabriel Ng, 2021-06-21 03:30:00 PM, [address] [facility], , [place], [address], Insurance Providers Payer Name Payer Address Payer Phone Insured Name Patient Relati onship to Insured Coverage Start Date Coverage End Date [employer] PPO [address] [address] [facility] [phone] REBECCA SCHMIDT self
--- OUTSIDE RECORDS SUMMARY | 2021-05-10 06:28 | CCD ---
Author Author [facility] Organization [facility] Address Unknown Phone Unavailable Care Team Providers Care Maintenance Services Dispatcher Name Role Phone Hospital [facility], [facility] Unavailable Unavailable SYSTEM IN, NOT IN PROVIDER Unavailable Unavailable Kocan, J Melissa [employer] Unavailable Unavailable Kocan, J Melissa [employer] Unavailable Unavailable Kocan, J Melissa [employer] Unavailable Unavailable Kocan, J Melissa [employer] Unavailable Unavailable Kocan, J Melissa [employer] Unavailable Unavailable Kocan, J Melissa [employer] Unavailable Unavailable Kocan, J Melissa [employer] Unavailable Unavailable Kocan, J Melissa [employer] Unavailable Unavailable Kocan, J Melissa [employer] Unavailable Unavailable Kocan, J Melissa [employer] Unavailable Unavailable Kocan, J Melissa [employer] Unavailable Unavailable Kocan, J Melissa [employer] Unavailable Unavailable Kocan, J Melissa [employer] Unavailable Unavailable Raymundo TYSON MD Unavailable Unavailable Raymundo TYSON MD Unavailable Unavailable Raymundo TYSON MD Unavailable Unavailable Raymundo TYSON MD Unavailable Unavailable Raymundo TYSON MD Unavailable Unavailable Raymundo TYSON MD Unavailable Unavailable PalchikAlphonse MD Unavailable Unavailable PalchikAlphonse MD Unavailable Unavailable PalchikAlphonse MD Unavailable Unavailable PalchikAlphonse MD Unavailable Unavailable PalchikAlphonse MD Unavailable Unavailable PalchikAlphonse MD Unavailable Unavailable PalchikAlphonse MD Unavailable Unavailable PalchikAlphonse MD Unavailable Unavailable PalchikAlphonse MD Unavailable Unavailable PalchikAlphonse MD Unavailable Unavailable Palchik, Alphonse CARPENTER Unavailable Unavailable Palchik, Alphonse CARPENTER Unavailable Unavailable Palchik, Alphonse CARPENTER Unavailable Unavailable Palchik, Alphonse CARPENTER Unavailable Unavailable Palchik, Alphonse CARPENTER Unavailable Unavailable Palchik, Alphonse CARPENTER Unavailable Unavailable Palchik, Alphonse CARPENTER Unavailable Unavailable Palchik, Alphonse CARPENTER Unavailable Unavailable Palchik, Alphonse CARPENTER Unavailable Unavailable Palchik, Alphonse CARPENTER Unavailable Unavailable PalchikAlphonse MD Unavailable Unavailable PalchikAlphonse MD Unavailable Unavailable PalchikAlphonse MD Unavailable Unavailable PalchikAlphonse MD Unavailable Unavailable PalchikAlphonse MD Unavailable Unavailable PalchikAlphonse MD Unavailable Unavailable PalchikAlphonse MD Unavailable Unavailable PalchikAlphonse MD Unavailable Unavailable PalchikAlphonse MD Unavailable Unavailable PalchikAlphonse MD Unavailable Unavailable PalchikAlphonse MD Unavailable Unavailable PalchikAlphonse MD Unavailable Unavailable PalchikAlphonse MD Unavailable Unavailable PalchikAlphonse MD Unavailable Unavailable PalchikAlphonse MD Unavailable Unavailable PalchikAlphonse MD Unavailable Unavailable PalchikAlphonse MD Unavailable Unavailable PalchikAlphonse MD Unavailable Unavailable PalchikAlphonse MD Unavailable Unavailable PalchikAlphonse MD Unavailable Unavailable PalchikAlphonse MD Unavailable Unavailable PalchikAlphonse MD Unavailable Unavailable PalchikAlphonse MD Unavailable Unavailable PalchikAlphonse MD Unavailable Unavailable PalchikAlphonse MD Unavailable Unavailable PalchikAlphonse MD Unavailable Unavailable PalchikAlphonse MD Unavailable Unavailable PalchikAlphonse MD Unavailable Unavailable PalchikAlphonse MD Unavailable Unavailable PalchikAlphonse MD Unavailable Unavailable PalchikAlphonse MD Unavailable Unavailable PalchikAlphonse MD Unavailable Unavailable ISIS TELLES MD Unavailable Unavailable ISIS TELLES MD Unavailable Unavailable ISSI TELLES MD Unavailable Unavailable ISIS TELLES MD Unavailable Unavailable ISIS TELLES MD Unavailable Unavailable ISIS TELLES MD Unavailable Unavailable ISIS TELLES MD Unavailable Unavailable ISIS TELLES MD Unavailable Unavailable ISIS TELLES MD Unavailable Unavailable TELLES, ISIS MD Unavailable Unavailable TELLES, ISIS MD Unavailable Unavailable TELLES, ISIS MD Unavailable Unavailable TELLES, ISIS MD Unavailable Unavailable TELLES, ISIS MD Unavailable Unavailable TELLES, ISIS MD Unavailable Unavailable TELLES, ISIS MD Unavailable Unavailable TELLES, ISIS MD Unavailable Unavailable TELLES, ISIS MD Unavailable Unavailable TELLES, ISIS MD Unavailable Unavailable TELLES, ISIS MD Unavailable Unavailable TELLES, ISIS MD Unavailable Unavailable TELLES, ISIS MD Unavailable Unavailable TELLES, ISIS MD Unavailable Unavailable TELLES, ISIS MD Unavailable Unavailable TELLES, ISIS MD Unavailable Unavailable TELLES, ISIS MD Unavailable Unavailable TELLSE, ISIS MD Unavailable Unavailable TELLES, ISIS MD Unavailable Unavailable TELLES, ISIS MD Unavailable Unavailable TELLES, ISIS MD Unavailable Unavailable TELLES, ISIS MD Unavailable Unavailable TELLES, ISIS MD Unavailable Unavailable TELLES, ISIS MD Unavailable Unavailable TELLES, ISIS MD Unavailable Unavailable TELLES, ISIS MD Unavailable Unavailable TELLES, ISIS MD Unavailable Unavailable TELLES, ISIS MD Unavailable Unavailable TELLES, ISIS MD Unavailable Unavailable TELLES, ISIS MD Unavailable Unavailable TELLES, ISIS MD Unavailable Unavailable TELLES, ISIS MD Unavailable Unavailable TELLES, ISIS MD Unavailable Unavailable TELLES, ISIS MD Unavailable Unavailable TELLES, ISIS MD Unavailable Unavailable TELLES, ISIS MD Unavailable Unavailable TELLES, ISIS MD Unavailable Unavailable TELLES, ISIS MD Unavailable Unavailable TELLES, ISIS MD Unavailable Unavailable TELLES, ISIS MD Unavailable Unavailable TELLES, ISIS MD Unavailable Unavailable TELLES, ISIS MD Unavailable Unavailable TELLES, ISIS MD Unavailable Unavailable TELLES, ISIS MD Unavailable Unavailable TELLES, ISIS MD Unavailable Unavailable TELLES, ISIS MD Unavailable Unavailable TELLES, ISIS MD Unavailable Unavailable TELLES, ISIS MD Unavailable Unavailable TELLES, ISIS MD Unavailable Unavailable TELLES, ISIS MD Unavailable Unavailable TELLES, ISIS MD Unavailable Unavailable TELLES, ISIS MD Unavailable Unavailable TELLES, ISIS MD Unavailable Unavailable TELLES, ISIS MD Unavailable Unavailable TELLES, ISIS MD Unavailable Unavailable TELLES, ISIS MD Unavailable Unavailable TELLES, ISIS MD Unavailable Unavailable TELLES, ISIS MD Unavailable Unavailable TELLES, ISIS MD Unavailable Unavailable TELLES, ISIS MD Unavailable Unavailable TELLES, ISIS MD Unavailable Unavailable MARC NUNEZ MD Unavailable Unavailable MARC NUNEZ MD Unavailable Unavailable MAYRA, MARC CARPENTER Unavailable Unavailable MAYRA, MARC CARPENTER Unavailable Unavailable MAYRA, MARC CARPENTER Unavailable Unavailable MAYRA, MARC CARPENTER Unavailable Unavailable MAYRA, MARC CARPENTER Unavailable Unavailable MAYRA, MARC CARPENTER Unavailable Unavailable MAYRA, MARC CARPENTER Unavailable Unavailable MAYRA, MARC CARPENTER Unavailable Unavailable MAYRA, MARC CARPENTER Unavailable Unavailable MAYRA, MARC CARPENTER Unavailable Unavailable MAYRA, MARC CARPENTER Unavailable Unavailable MAYRA, MARC CARPENTER Unavailable Unavailable MAYRA, MARC CARPENTER Unavailable Unavailable MAYRA, MARC CARPENTER Unavailable Unavailable MAYRA, MARC CARPENTER Unavailable Unavailable MAYRA, MARC CARPENTER Unavailable Unavailable MAYRA, MARC CARPENTER Unavailable Unavailable MAYRA, MARC CARPENTER Unavailable Unavailable MAYRA, MARC CARPENTER Unavailable Unavailable MAYRA, MARC CARPENTER Unavailable Unavailable MAYRA, MARC CARPENTER Unavailable Unavailable MAYRA, MARC CARPENTER Unavailable Unavailable MAYRA, MARC CARPENTER Unavailable Unavailable MAYRA, MARC CARPENTER Unavailable Unavailable MAYRA, MARC CARPENTER Unavailable Unavailable MAYRA, MARC CARPENTER Unavailable Unavailable MAYRA, MARC CARPENTER Unavailable Unavailable MAYRA, MARC CARPENTER Unavailable Unavailable MAYRA, MARC CARPENTER Unavailable Unavailable MAYRA, MARC CARPENTER Unavailable Unavailable MAYRA, MARC CARPENTER Unavailable Unavailable MAYRA, MARC CARPENTER Unavailable Unavailable MAYRA, MARC CARPENTER Unavailable Unavailable MAYRA, MARC CARPENTER Unavailable Unavailable MAYRA, MARC CARPENTER Unavailable Unavailable MAYRA, MARC CARPENTER Unavailable Unavailable MAYRA, MARC CARPENTER Unavailable Unavailable MAYRA, MARC CARPENTER Unavailable Unavailable MAYRA, MARC CARPENTER Unavailable Unavailable MAYRA, MARC CARPENTER Unavailable Unavailable MAYRA, MARC CARPENTER Unavailable Unavailable MAYRA, MARC CARPENTER Unavailable Unavailable MAYRA, MARC CARPENTER Unavailable Unavailable MAYRA, MARC CARPENTER Unavailable Unavailable MAYRA, MARC CARPENTER Unavailable Unavailable MAYRA, MARC CARPENTER Unavailable Unavailable MAYRA, MARC CARPENTER Unavailable Unavailable MAYRA, MARC CARPENTER Unavailable Unavailable MAYRA, MARC CAPRENTER Unavailable Unavailable MAYRA, MARC CARPENTER Unavailable Unavailable MAYRA, MARC CARPENTER Unavailable Unavailable MAYRA, MARC CARPENTER Unavailable Unavailable MAYRA, MARC CARPENTER Unavailable Unavailable Cederstrand, Marisol Mills MD Unavailable Unavailable Cederstrand, Marisol Mills MD Unavailable Unavailable Cederstrand, Marisol Mills MD Unavailable Unavailable Cederstrand, Marisol Mills MD Unavailable Unavailable Cederstrand, Marisol Mills MD Unavailable Unavailable Cederstrand, Marisol Mills MD Unavailable Unavailable Cederstrand, Marisol Mills MD Unavailable Unavailable Israeltrand, Marisol Mills MD Unavailable Unavailable Cederstrand, Marisol Mills MD Unavailable Unavailable Cederstrand, Marisol Mills MD Unavailable Unavailable Cederstrand, Marisol Mills MD Unavailable Unavailable Cederstrand, Marisol Mills MD Unavailable Unavailable Cederstrand, Marisol Mills MD Unavailable Unavailable Cederstrand, Marisol Mills MD Unavailable Unavailable Cederstrand, Marisol Mills MD Unavailable Unavailable Cederstrand, Marisol Mills MD Unavailable Unavailable Foreman Ken, Roe Junior MD, [...] Ken, Roe Junior MD, FACS Unavailable Unavailable Wilbur, J Kilo PA-C Unavailable Unavailable Wilbur, J Kilo PA-C Unavailable Unavailable Wilbur, J Kilo PA-C Unavailable Unavailable Wilbur, J Kilo PA-C Unavailable Unavailable Wilbur, J Kilo PA-C Unavailable Unavailable Wilbur, J Kilo PA-C Unavailable Unavailable Raymundo Bowles Kilo PA-C Unavailable Unavailable Raymundo Bowles Kilo PA-C Unavailable Unavailable Raymundo Bowles Kilo PA-C Unavailable Unavailable Raymundo Bowles Kilo PA-C Unavailable Unavailable Raymundo Aceves JR, MD Unavailable [...] Unavailable Raymundo Aceves JR, MD Unavailable Unavailable Ryamundo Aceves JR, MD Unavailable Unavailable Raymundo Aceves [...] Unavailable Raymundo Aceves JR, MD Unavailable Unavailable Rayumndo Aceves JR, MD Unavailable Unavailable Raymundo Aceves JR, MD Unavailable Unavailable Raymundo Aceves JR, MD Unavailable Unavailable Ketan JR, J Gerhard MD Unavailable Unavailable Ketan JR, J Gerhard MD Unavailable Unavailable Ketan JR, J Gerhadr MD Unavailable Unavailable Ketan JR, J Gerhard MD Unavailable Unavailable Ketan JR, J Egrhard MD Unavailable Unavailable Ketan JR, J Gerhard MD Unavailable Unavailable Ketan JR, J Gerhard MD Unavailable Unavailable Ketan JR, J Gerhard MD Unavailable Unavailable Ketan JR, J Gerhard MD Unavailable Unavailable Re-disclosure Warning The records [...] by Article 27-F of the [facility] Public Health law. If you continue you may have access to information: Regarding HIV / AIDS; Provided by facilities licensed or operated by the [facility] Office of Mental Health; or Provided by the [facility] Office for People With Developmental Disabilities. If such information is present, then the following [facility] mandated warning applies: This information has [...] law may result in a fine or fdc sentence or both. A general authorization for the release of medical or other information is NOT sufficient authorization for further disc losure. Allergies and Adverse Reactions Type Description Substance Reaction Status Data Source(s ) Allergy to substance No Known Allergies No known allergies (situation ) NAHOMI ([facility]) Allergy to substance No Known Allergies No known allergies (situation ) NAHOMI ([facility]) Family History Family Member Name Family Member Gender Family Member Status Date o f Status Description Data Source(s) Unknown Unknown Problem [facility]ENT ([facility], ) Unknown Unknown Problem [facility] Unknown Unknown Problem MEDENT ([facility], ) Kidney father Unknown Unknown Encounters Encounter Providers Location Date Indications Data Source(s ) Unknown [address] [facility] [address] 05/05/2021 12:00:00 AM EDT [facility] Outpatient Attender: GINNY Huffman/Ger/William/[place] 04/14/2021 01:00:00 PM EDT [facility] [place] [address] [facility] [address] 03/23/2021 12:00:00 AM EDT [facility] [place] [address] [facility] [address] 03/17/2021 12:00:00 AM EDT [facility]CW1 [facility] Unknown [address] [facility] [address] 03/17/2021 12:00:00 AM EDT [facility]CW1 [facility] [place] [address] [facility] [address] 03/17/2021 12:00:00 AM EDT eCW1 [facility] Outpatient Attender: Alphonse Albert MD Main Office 02/10/2021 03:30:0 0 PM EDT MEDENT ([facility]) Unknown [address] [facility] [address] 02/08/2021 12:00:00 AM EDT eCW1 [facility] Unknown [address] [facility] [address] 02/01/2021 12:00:00 AM EDT eCW1 [facility] [place] [address] [facility] [place] [address] 12/30/2020 12:00:00 AM EDT eCW1 ([facility]) (WND NP120) New Patient 120 Min [address] [place] [address] 12/14/2020 12:00:00 AM EDT eCW1 ([facility] [place]) Unknown [address] [facility] [address] 11/08/2020 12:00:00 AM EDT eCW1 ([facility]) Outpatient [address] [facility] [place] [address] 11/04/2020 12:00:00 AM EDT eCW1 ([facility] [place]) Unknown [address] [facility] [place] [address] 11/04/2020 12:00:00 AM EDT eCW1 ([facility]) Unknown [address] [facility], [facility] [address] 11/01/2020 12:00:00 AM EDT eCW1 ([facility]) Outpatient Attender: [facility] 09/10/2020 04:4 8:00 PM [facility] Emergency Attender: Kilo Bowles PA-CConsultant: ISIS BERGMAN MD 09/10/2020 03:21:00 PM [facility] 09/10/2020 07:00:00 PM [facility] Patient discharged. Outpatient Attender: ISIS TELLES MDConsultant: ISIS Matthews MD 09/10/2020 12:20:00 PM [facility] 09/10/2020 12:30:00 PM [facility] Outpatient Attender: ISIS TELLES MDConsultant: ISIS Matthews MD 09/09/2020 06:56:00 AM [facility] 09/09/2020 07:06:00 AM [facility] Outpatient Attender: ISIS TELLES MDConsultant: ISIS Matthews MD 09/08/2020 08:29:00 AM [facility] 09/08/2020 08:39:00 AM [facility] Outpatient Attender: MARC NUNEZ MD SJP.JASWANT-SJP.JASWANT 12:00:00 AM EST - 09/08/2020 11:55:25 AM [facility] Outpatient Attender: ISIS TELLES MDConsultant: ISIS Matthews MD 09/07/2020 03:50:00 PM EST - 09/07/2020 04:00:00 PM [facility] Unknown [address] [facility] [address] 09/07/2020 12:00:00 AM EST eCW1 ([facility]) Outpatient Attender: ISIS TELLES MDConsultant: ISIS Matthews MD 09/06/2020 02:17:[address] [facility] - 09/06/2020 02:27:00 PM [facility] Outpatient Attender: ISIS TELLES MDConsultant: ISIS Matthews MD 09/04/2020 04:38:00 PM [facility] 09/04/2020 04:48:00 PM [facility] Outpatient Attender: ISIS TELLES MDConsultant: ISIS Matthews MD 08/31/2020 06:52:[address] [facility] - 08/31/2020 07:02:00 AM [facility] Outpatient Attender: ISIS TELLES MDConsultant: ISIS Matthews MD 08/30/2020 02:47:[address] [facility] - 08/30/2020 02:57:00 PM [facility] Outpatient Attender: ISIS TELLES MDRef errer: ISIS TELLES MDConsultant: ISIS TELLES MD 08/29/2020 08:18:[address] [facility] - 08/29/2020 08:28:00 AM [facility] Outpatient Referrer: PROVIDER SYSTEM [place] 08/11/2020 0 3:05:00 PM EST newly diagnosed sigmoid CA, GI bleed [facility] newly diagnosed sigmoid CA, GI bleed [place] [address] [facility] [address] 08/10/2020 12:00:00 AM EST eCW1 ([facility]) Unknown [address] [facility] [address] 08/03/2020 12:00:00 AM EST [facility] [place] [address] [facility] [address] 07/28/2020 12:00:00 AM EST [facility]CW1 ([facility]) Unknown [address] [facility] [address] 07/04/2020 12:00:00 AM EST eCW1 ([facility]) Unknown [address] [facility] [address] 07/04/2020 12:00:00 AM EST eCW1 ([facility]) Outpatient Attender: Gerhard Huffman/[place]/William/Rein dl 06/30/2020 12:00:00 PM EST MEDENT ([facility] Outpatient Attender: Lina Huffman/[place]/William/ Reindl 06/28/2020 02:15:00 PM EST MEDENT ([facility] Outpatient [address] [facility] [address] 06/22/2020 12:00:00 AM EST eCW1 ([facility] [address] [facility] [address] 06/15/2020 12:00:00 AM EST eCW1 ([facility]) Outpatient [address] [facility] [address] 06/10/2020 12:00:00 AM EST eCW1 ([facility]) Unknown [address] [facility] [address] 06/01/2020 12:00:00 AM EST eCW1 ([facility]) [place] [address] [facility] [address] 06/01/2020 12:00:00 AM EST eCW1 ([facility]) Unknown [address] [facility] [address] 05/31/2020 12:00:00 AM EST eCW1 ([facility]) Outpatient [address] [facility] [address] 05/25/2020 12:00:00 AM EST eCW1 ([facility]) Outpatient Attender: Melissa Bella RNPReferrer: Melissa Prado NP SJP.JASWANT-SJP.JASWANT 04/20/2020 11:03:17 AM EDT - 04/20/2020 01:49:56 PM EDT [facility] <td ID="encounterTypeDescriptionID0">7 M ont Follow-Up</td><td>Vernon Ken MD, SHAMIKA</td><td>Vernon Paul MD [facility]</td><td>03/18/2020</td><td>1:02PM</td><td>1:47PM</td><td><content ID="encounterDiagnosisID0-0">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</content>, <content ID="encounterDiagnosisID0-1"> Assessment of Taking Medication For Diabetes Long-term Use of Oral Hypoglycemics</content>, <content ID="encounterDiagnosisID0-2">Macular Degeneration Nonexudative Bilateral Early Dry Stage</content>, <content ID="encounterDiagnosisID0-3">Essential Hypertension</content>, <content ID="encounterDiagnosisID0-4">History of Nicotine Dependence</content>, <content ID="encounterDiagnosisID0-5">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</content>, <content ID="encounterDiagnosisID0-6">Pseudophakia</content></td>Outpatient Attender: Vernon Ken MD, SHAMIKA [facility] 03/18/2020 01:02:00 PM EDT - 03/18/2020 01:47:00 [...] Without Macular Edema NAHOMI ([facility] Ken [facility]) Macular Degeneration Nonexudative Bilate ral Early [...] Retinopathy Mild Non prolif Without Macular Edema Medications Medication Brand Name Start Date Product Form Dose Route Admi nistrative Instructions Pharmacy Instructions Status Indications Reaction Description Data Source(s) Metoprolol Succinate 25 MG [facility] 02/01/2021 12:00:00 AM EDT 1. 0 {capsule} active Metoprolol Succinate 25 MG eCW1 ([facility]) Metoprolol Succinate 25 MG [facility] 02/01/2021 12:00:00 AM EDT 1. 0 {capsule} suspended Metoprolol Succinate 25 MG eCW1 ([facility]) Metoprolol Succinate 25 MG [facility] 02/01/2021 12:00:00 AM EDT 1. 0 {capsule} active Metoprolol Succinate 25 MG eCW1 ([facility]) Metoprolol Succinate 25 MG [facility] 02/01/2021 12:00:00 AM EDT 1. 0 {capsule} suspended Metoprolol Succinate 25 MG eCW1 ([facility]) Metoprolol Succinate 25 MG [facility] 02/01/2021 12:00:00 AM EDT 1. 0 {capsule} suspended Metoprolol Succinate 25 MG eCW1 ([facility]) Metoprolol Succinate 25 MG [facility] 02/01/2021 12:00:00 AM EDT 1. 0 {capsule} suspended Metoprolol Succinate 25 MG eCW1 ([facility]) Metoprolol Succinate 25 MG [facility] 02/01/2021 12:00:00 AM EDT 1. 0 {capsule} suspended Metoprolol Succinate 25 MG eCW1 ([facility]) sevelamer carbonate 800 MG Oral Tablet [Renvela] Renvela 11/10/2020 12:00:00 AM EDT active MEDENT ([facility]) May Have - UNK 10/20/2020 12:00:00 AM EDT active May Have - eCW1 ([facility]) May Have - UNK 10/20/2020 12:00:00 AM EDT active May Have - eCW1 ([facility]) May Have - UNK 10/20/2020 12:00:00 AM EDT active May Have - eCW1 ([facility]) May Have - UNK 10/20/2020 12:00:00 AM EDT active May Have - eCW1 ([facility]) May Have - UNK 10/20/2020 12:00:00 AM EDT active May Have - eCW1 ([facility]) May Have - UNK 10/20/2020 12:00:00 AM EDT active May Have - eCW1 ([facility]) May Have - UNK 10/20/2020 12:00:00 AM EDT active May Have - eCW1 ([facility]) May Have - UNK 10/20/2020 12:00:00 AM EDT active May Have - eCW1 ([facility]) May Have - UNK 10/20/2020 12:00:00 AM EDT active May Have - eCW1 ([facility]) May Have - UNK 10/20/2020 12:00:00 AM EDT active May Have - eCW1 ([facility]) May Have - UNK 10/20/2020 12:00:00 AM EDT active May Have - eCW1 ([facility]) May Have - UNK 10/20/2020 12:00:00 AM EDT active May Have - eCW1 ([facility]) May Have - UNK 10/20/2020 12:00:00 AM EDT active May Have - eCW1 ([facility]) Furosemide 20 MG Oral Tablet furosemide (LASIX) 20 MG tablet furosemide (LASIX) 20 MG tablet 09/08/2020 12:00:00 AM EST 20 mg Oral activ e Take 1 tablet (20 mg total) by mouth daily [facility] Metoprolol Tartrate 25 MG Oral Tablet me toprolol tartrate (LOPRESSOR) 25 MG tablet metoprolol tartrate (LOPRESSOR) 25 MG tablet 09/08/2020 12:0 0:00 AM EST 25 mg Oral active Take 1 tablet (2 5 mg total) by mouth 2 (two) times a day [facility] Metolazone 2.5 MG Oral Tablet metolazone (ZAROXOLYN) 2 .5 MG tablet metolazone (ZAROXOLYN) 2.5 MG tablet 09/08/2020 12:00:00 AM EST 2.5 mg Oral active Take 1 tablet (2.5 mg total) by mouth every other day [facility] Tamsulosin hydrochloride 0.4 MG Oral Capsule Tamsulosi n HCl 0.4 MG Tamsulosin HCl 0.4 MG 07/04/2020 12:00:00 AM EST 1.0 {capsule} suspended Tamsulosin HCl 0.4 MG eCW1 ([facility]) Tamsulosin hydrochloride 0.4 MG Oral Capsule Tamsulosi n HCl 0.4 MG Tamsulosin HCl 0.4 MG 07/04/2020 12:00:00 AM EST 1.0 {capsule} suspended Tamsulosin HCl 0.4 MG eCW1 ([facility]) Tamsulosin hydrochloride 0.4 MG Oral Capsule Tamsulosi n HCl 0.4 MG Tamsulosin HCl 0.4 MG 07/04/2020 12:00:00 AM EST 1.0 {capsule} suspended Tamsulosin HCl 0.4 MG eCW1 ([facility]) Tamsulosin hydrochloride 0.4 MG Oral Capsule Tamsulosi n HCl 0.4 MG Tamsulosin HCl 0.4 MG 07/04/2020 12:00:00 AM EST 1.0 {capsule} active Tamsulosin HCl 0.4 MG eCW1 ([facility]) Tamsulosin hydrochloride 0.4 MG Oral Capsule Tamsulosi n HCl 0.4 MG Tamsulosin HCl 0.4 MG 07/04/2020 12:00:00 AM EST 1.0 {capsule} active Tamsulosin HCl 0.4 MG eCW1 ([facility]) Tamsulosin hydrochloride 0.4 MG Oral Capsule Tamsulosi n HCl 0.4 MG Tamsulosin HCl 0.4 MG 07/04/2020 12:00:00 AM EST 1.0 {capsule} active Tamsulosin HCl 0.4 MG eCW1 ([facility]) Tamsulosin hydrochloride 0.4 MG Oral Capsule Tamsulosi n HCl 0.4 MG Tamsulosin HCl 0.4 MG 07/04/2020 12:00:00 AM EST 1.0 {capsule} suspended Tamsulosin HCl 0.4 MG eCW1 ([facility]) Tamsulosin hydrochloride 0.4 MG Oral Capsule Tamsulosi n HCl 0.4 MG Tamsulosin HCl 0.4 MG 07/04/2020 12:00:00 AM EST 1.0 {capsule} active Tamsulosin HCl 0.4 MG eCW1 ([facility]) Tamsulosin hydrochloride 0.4 MG Oral Capsule Tamsulosi n HCl 0.4 MG Tamsulosin HCl 0.4 MG 07/04/2020 12:00:00 AM EST 1.0 {capsule} suspended Tamsulosin HCl 0.4 MG eCW1 ([facility]) Tamsulosin hydrochloride 0.4 MG Oral Capsule Tamsulosi n HCl 0.4 MG Tamsulosin HCl 0.4 MG 07/04/2020 12:00:00 AM EST 1.0 {capsule} active Tamsulosin HCl 0.4 MG eCW1 ([facility]) Tamsulosin hydrochloride 0.4 MG Oral Capsule Tamsulosi n HCl 0.4 MG Tamsulosin HCl 0.4 MG 07/04/2020 12:00:00 AM EST 1.0 {capsule} suspended Tamsulosin HCl 0.4 MG eCW1 ([facility]) Tamsulosin hydrochloride 0.4 MG Oral Capsule Tamsulosi n HCl 0.4 MG Tamsulosin HCl 0.4 MG 07/04/2020 12:00:00 AM EST 1.0 {capsule} suspended Tamsulosin HCl 0.4 MG eCW1 ([facility]) Tamsulosin hydrochloride 0.4 MG Oral Capsule Tamsulosi n HCl 0.4 MG Tamsulosin HCl 0.4 MG 07/04/2020 12:00:00 AM EST 1.0 {capsule} suspended Tamsulosin HCl 0.4 MG eCW1 ([facility]) Tamsulosin hydrochloride 0.4 MG Oral Capsule Tamsulosi n HCl 0.4 MG Tamsulosin HCl 0.4 MG 07/04/2020 12:00:00 AM EST 1.0 {capsule} active Tamsulosin HCl 0.4 MG eCW1 ([facility]) Tamsulosin hydrochloride 0.4 MG Oral Capsule Tamsulosi n HCl 0.4 MG Tamsulosin HCl 0.4 MG 07/04/2020 12:00:00 AM EST 1.0 {capsule} active Tamsulosin HCl 0.4 MG eCW1 ([facility]) Tamsulosin hydrochloride 0.4 MG Oral Capsule Tamsulosi n HCl 0.4 MG Tamsulosin HCl 0.4 MG 07/04/2020 12:00:00 AM EST 1.0 {capsule} suspended Tamsulosin HCl 0.4 MG eCW1 ([facility]) Tamsulosin hydrochloride 0.4 MG Oral Capsule Tamsulosi n HCl 0.4 MG Tamsulosin HCl 0.4 MG 07/04/2020 12:00:00 AM EST 1.0 {capsule} suspended Tamsulosin HCl 0.4 MG eCW1 ([facility]) Tamsulosin hydrochloride 0.4 MG Oral Capsule Tamsulosi n HCl 0.4 MG Tamsulosin HCl 0.4 MG 07/04/2020 12:00:00 AM EST 1.0 {capsule} suspended Tamsulosin HCl 0.4 MG eCW1 ([facility]) Tamsulosin hydrochloride 0.4 MG Oral Capsule Tamsulosi n HCl 0.4 MG Tamsulosin HCl 0.4 MG 07/04/2020 12:00:00 AM EST 1.0 {capsule} suspended Tamsulosin HCl 0.4 MG eCW1 ([facility]) Sucralfate 1000 MG Oral Tablet Sucralfate 06/30/2020 12:00:00 AM EST active MEDENT ([facility]) apixaban 5 MG Oral Tablet Apixaban (ELIQUIS) 5 MG TABS tablet Apixaban (ELIQUIS) 5 MG TABS tablet 02/18/2020 12:00:00 AM EDT 5 mg Oral aborted Atrial fibrillation Take 1 tablet (5 mg total) by mouth 2 (t wo) times a day [facility] Atrial fibrillation 24 HR Glipizide 2.5 MG Extended Release Oral Tablet glipiZIDE (GLUCOTROL) 2.5 MG 24 hr tablet glipiZIDE (GLUCOTROL) 2.5 MG 24 hr tablet 12/22/2019 1 2:00:00 AM EDT 2.5 mg Oral aborted Take 2.5 mg by m outh daily [facility] Finasteride 5 MG Oral Tablet finasteride (PROSCAR) 5 M G tablet finasteride (PROSCAR) 5 MG tablet 05/23/2019 12:00:00 AM EDT 5 mg Oral aborted Take 5 mg by mouth daily [facility] Multiple Vitamins-Minerals (ICAPS) CAPS [id number] 06/20/20 16 12:00:00 AM EST aborted ICAPS CAPS [facility] Calcium Carb-Cholecalciferol (CALCIUM 1000 + D) 1000-800 MG-UNIT TABS [id number] aborted CALCIUM [facility] torsemide 100 MG Oral Tablet torsemide (DEMADEX) 100 M G tablet torsemide (DEMADEX) 100 MG tablet 100 mg Oral aborted Take 100 mg by mouth daily [facility] 24 HR metoprolol succinate 100 MG Extend ed Release Oral Tablet metoprolol succinate (TOPROL-XL) 100 MG 24 hr tablet metoprolol succinate (TOPROL-XL) 100 MG 24 hr tablet 100 mg Oral aborted Take 10 0 mg by mouth daily [facility] Metolazone 2.5 MG Oral Tablet metolazone (ZAROXOLYN) 2 .5 MG tablet metolazone (ZAROXOLYN) 2.5 MG tablet 2.5 mg Oral aborted Take 2.5 mg by mouth daily as needed [facility] Lovastatin 20 MG Oral Tablet lovastatin (MEVACOR) 20 M G tablet lovastatin (MEVACOR) 20 MG tablet 20 mg Oral aborted Take 20 mg by mouth nightly [facility] Lisinopril 2.5 MG Oral Tablet lisinopril (PRINIVIL,ZES TRIL) 2.5 MG tablet lisinopril (PRINIVIL,ZESTRIL) 2.5 MG tablet 2.5 mg Oral aborted Take 2.5 mg by mouth daily [facility] Insurance Providers Payer name Policy type / Coverage type Policy ID Covered republican ID Covered republican's relationship to naik Policy Naik Plan Information Medicare Blue o Health Maintenance Organization (HMO) [id number] Self TODAYS OPTIONS [id number] SP [id number] [employer]IONS [id number] SP [id number] [employer]IONS [id number] SP [id number] [employer] OPTIONS [id number] SP [id number] WELLCARE [id number] SP [id number] WELLCARE MEDICARE [id number] Francisca 16 [id number] WELLCARE MEDICARE [id number] xxxxxxxxx 24 [id number] [employer] REBECCA THOMAS SR [address] REBE[address] THOMAS [address] K WELLCARE O [id number] S [id number] WELLCARE [id number] SP [id number] WELLCARE [id number] SP [id number] WELLCARE [id number] SP [id number] WELLCARE [id number] SP [id number] WELLCARE O [id number] S [id number] TOD[employer] OPTIONS [id number] SP [id number] MEDICARE [id number] SP [id number] ANSI-Medicare Part B [id number] ANS-Health Maintenance Organization ( O) [id number] ANSI-Medicare Part B [id number] ANS-Health Maintenance Organization ( O) [id number] ANSI-Medicare Part B [id number] ANS-Health Maintenance Organization ( O) [id number] ANSI-Medicare Part B [id number] [facility]-Health Maintenance Organization ( O) [id number] [facility]-Health Maintenance Organization ( O) [id number] ANSI-Medicare Part B [id number] [facility]-Health Maintenance Organization ( O) [id number] ANSI-Medicare Part B [id number] ANSI-Medicare Part B [id number] ANSI-Health Maintenance Organization ( O) [id number] ANSI-Medicare Part B [id number] ANSI-Health Maintenance Organization ( O) [id number] ANS-Health Maintenance Organization ( O) [id number] ANSI-Medicare Part B [id number] [facility]-Health Maintenance Organization ( O) [id number] ANSI-Medicare Part B [id number] ANSI-Medicare Part B [id number] [facility]-Health Maintenance Organization ( O) [id number] ANSI-Medicare Part B [id number] [facility]-Health Maintenance Organization ( O) [id number] ANSI-Medicare Part B [id number] [facility]-Health Maintenance Organization ( O) [id number] ANSI-Medicare Part B [id number] [facility]-Health Maintenance Organization ( O) [id number] [facility]-Health Maintenance Organization ( O) [id number] ANSI-Medicare Part B [id number] TODAYS OPTIONS [id number] SP [id number] [facility]-Health Maintenance Organization ( O) [id number] ANSI-Medicare Part B [id number] ANSI-Health Maintenance Organization ( O) [id number] ANSI-Medicare Part B [id number] ANSI-Medicare Part B [id number] ANSI-Medicare Part B [id number] ANSI-Medicare Part B [id number] ANSI-Medicare Part B [id number] ANSI-Medicare Part B [id number] ANSI-Medicare Part B [id number] ANSI-Medicare Part B [id number] ANSI-Medicare Part B [id number] TODAYS OPTIONS [id number] SP [id number] Today's Options Medicare Commercial [id number] Self [id number] Today's Options Medicare Commercial [id number] Self [id number] Today's Options Medicare Commercial [id number] Self [id number] Today's Options Medicare Commercial [id number] Self [id number] Today's Options Medicare Commercial [id number] Self [id number] Today's Options Medicare Commercial [id number] Self [id number] MEDICARE BLUE PPO 306 [id number] SP [id number] Today's Options Medicare Commercial [id number] Self MEDICARE BLUE PPO 306 [id number] SP [id number] [employer]BS B [id number] S [id number] EXCE[employer] BCBS [facility] H[facility] [id number] S [id number] MEDICARE BLUE PPO 306 [id number] SP [id number] [employer] PPO [id number] SP [id number] [employer] GOLD [id number] SP [id number] [employer] PPO [id number] SP [id number] WELLCARE [id number] SP [id number] MEDICARE [id number] SP [id number] WELLCARE [id number] SP [id number] MEDICARE [id number] SP [id number] WELLCARE -O/P [id number] 18 [id number] Problems, Conditions, and Diagnoses Code Display Name Description Problem Type Effective Dates Data Source(s) 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 custodial (cu rrent) use of insulin Diagnosis 09/10/2020 03:21:00 PM [facility] Z933 Colostomy status Colostomy status Diagnosis 09/10/2020 03 :21:00 PM [facility] I130 Hypertensive heart and chron ic kidney disease with heart failure and stage 1 through stage 4 chronic kidney disease, or unspecified chronic kidney disease Hypertensive heart and chronic kidney disease with heart failure and stage 1 through stage 4 chronic kidney disease, or unspecified chronic kidney disease Diagnosis 09/10/2020 03:21:00 PM [facility] R531 Weakness Weakness Diagnosis 09/10/2020 03:21:00 PM ES T [facility] [id number] Personal history of nicotine dependence Personal history of nicotine dependence Diagnosis 09/10/2020 03:21:00 PM [facility] Z8546 Personal history of malignant neoplasm o f prostate Personal history of malignant neoplasm of prostate Diagnosis 09/10/2020 03:21:00 PM [facility] W49060 Personal history of other malignant neop lasm of large intestine Personal history of other malignant neoplasm of large intestine Diagnosis 09/10/2020 03:21:00 PM [facility] G10313 CONTACT WITH AND SUSPECTED EXPOSURE TO C OVID-19 CONTACT WITH AND SUSPECTED EXPOSURE TO COVID-19 Diagnosis 09/10/2020 03:21:00 PM [facility] I4891 Unspecified atrial fibrillation Unspecified atrial fib rillation Diagnosis 09/10/2020 03:21:00 PM [facility] I509 Heart failure, unspecified Heart failure, unspecified Diagnosis 09/10/2020 03:21:00 PM [facility] 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 Diagnosis 09/10/2020 03:21:00 PM [facility] E039 Hypothyroidism, unspecified Hypothyroidism, unspecifie d Diagnosis 09/10/2020 03:21:00 PM [facility] E785 Hyperlipidemia, unspecified Hyperlipidemia, unspecifie d Diagnosis 09/10/2020 03:21:00 PM [facility] N184 Chronic kidney disease, stage 4 (severe) Chronic kidney disease, stage 4 (severe) Diagnosis 09/10/2020 03:21:00 PM [facility] D649 Anemia, unspecified Anemia, unspecified Diagnosis 0 09/10/2020 03:21:00 PM [facility] H43920 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 with unspecified severity Non-pressure chronic ulcer of unspecifie d part of right lower leg with unspecified severity Diagnosis 09/10/2020 03:21:00 PM E [facility] D16000 Right heart failure, unspecified Right heart ingris lure, unspecified Diagnosis 09/10/2020 12:20:00 PM [facility] C189 Malignant neoplasm of colon, unspecified Malignant neoplasm of colon, unspecified Diagnosis 09/09/2020 06:56:00 AM [facility] I10 Essential (primary) hypertension Essential (primary) h ypertension Diagnosis 09/09/2020 06:56:00 AM [facility] 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 Ot her obstructive and reflux uropathy Diagnosis 09/08/2020 10:49:28 AM [facility] N40.1 Benign prostatic hyperplasia with lower urinary tract symptoms Benign prostatic hyperplasia with lower Diagnosis 09/08/2020 10:49:28 AM [facility] E66.9 Obesity, unspecified Obesity, unspecified Diagnosis 09/08/2020 10:49:28 AM [facility] E03.9 Hypothyroidism, unspecified Hypothyroidism, unspecifie d Diagnosis 09/08/2020 10:49:28 AM [facility] M10.9 Gout, unspecified Gout, unspecified Diagnosis 09/08/2020 10:49:28 AM [facility] E11.9 Type 2 diabetes mellitus without complic ations Type 2 diabetes mellitus without complic Diagnosis 09/08/2020 10:49:28 AM [facility] K74.60 Unspecified cirrhosis of liver Unspecified cirrhosis o f liver Diagnosis 09/08/2020 10:49:28 AM [facility] N18.9 Chronic kidney disease, unspecified Chronic kidn ey disease, unspecified Diagnosis 09/08/2020 10:49:28 AM [facility] I10 Essential (primary) hypertension Essential (primary) h ypertension Diagnosis 09/08/2020 10:49:28 AM [facility] E78.5 Hyperlipidemia, unspecified Hyperlipidemia, unspecifie d Diagnosis 09/08/2020 10:49:28 AM [facility] I48.91 Unspecified atrial fibrillation Unspecified atri al fibrillation Diagnosis 09/08/2020 10:49:28 AM [facility] N189 Chronic kidney disease, unspecified Chronic kidn ey disease, unspecified Diagnosis 09/08/2020 08:29:00 AM [facility] C187 Malignant neoplasm of sigmoid colon Malignant ne oplasm of sigmoid colon Diagnosis 09/07/2020 03:50:00 PM [facility] Z1152 ENCOUNTER FOR SCREENING FOR COVID-19 ENCOUNTER F OR SCREENING FOR COVID-19 Diagnosis 08/30/2020 02:47:00 PM [facility] newly diagnosed sigmoid CA, GI bleed newly diagn osed sigmoid CA, GI bleed Diagnosis 08/11/2020 03:05:00 PM [facility] R06.02 Shortness of breath Shortness of breath Diagnosis 0 04/20/2020 11:03:17 AM EDT [facility] [id number] Malignant tumor of sigmoid colon Malignant tumor of sigmoid colon Problem 04/14/2021 12:00:00 AM EDT MED[facility] ([facility] uvaldo, DESTINI) [id number] Essential hypertension Essential hypertension Problem 04/14/2021 12:00:00 AM EDT [facility] ([facility]) [id number] Cor pulmonale Cor pulmonale Problem 04/14/2021 12:00:00 AM EDT [facility] ([facility]) 058461972 Chronic kidney disease stage 4 Chronic kidney disease stage 4 Problem 04/14/2021 12:00:00 AM EDT [facility] ([facility]) I10 [id number] Hypertension, unspecified type Problem 02/01 12:00:00 AM EDT eCW1 ([facility]) 61206728 Peripheral venous insufficiency Peripheral venou s insufficiency Problem 01/03/2021 12:00:00 AM EDT [facility] ([facility]) 49914807 Atrial fibrillation Atrial fibrillation Problem 0 01/03/2021 12:00:00 AM EDT [facility] ([facility]) 842696771 Pure hypercholesterolemia Pure hypercholesterolemia Pr oblem 01/03/2021 12:00:00 AM EDT [facility] ([facility]) 57958231 Essential hypertension Essential hypertension Problem 01/03/2021 12:00:00 AM EDT [facility] ([facility]) N20.0 05503473 Kidney stone Problem 12/30/2020 12:00:00 AM EDT eCW1 ([facility]) Z43.3 881600357 Colostomy care Problem 12/16/2020 12:00:00 A M EDT eCW1 ([facility]) K74.69 28553471 Other cirrhosis of liver Problem 11/10/2020 12:00:00 AM EDT eCW1 ([facility]) N18.6 07322874 End stage renal disease Problem 11/04/2020 1 2:00:00 AM EDT eCW1 ([facility]) C18.7 050921414 Cancer of sigmoid colon Problem 11/04/2020 1 2:00:00 AM EDT eCW1 ([facility]) I50.20 531656051 Heart failure with reduced ejection fract ion Problem 11/04/2020 12:00:00 AM EDT eCW1 ([facility]) N40.1 [id number] Benign prostatic hyp erplasia with lower urinary tract symptoms Problem 07/04/2020 12:00:00 AM EST eCW1 ([facility]) D50.9 47579824 Iron deficiency anemia, unspecif ied iron deficiency anemia type Problem 06/10/2020 12:00:00 AM EST eCW1 ([facility]) N18.4 749731434 Stage 4 chronic kidney disease Problem 06/10/2020 12:00:00 AM EST eCW1 ([facility]) I50.9 502943091 Acute on chronic con gestive heart failure, unspecified heart failure type Problem 06/10/2020 12:00:00 AM EST eCW1 ([facility]) Surgeries/Procedures Procedure Description Date Indications Data Source(s) OFFICE OUTPATIENT VISIT 15 MINUTES 04/14/2021 12:00:00 AM EDT MED[facility] ([facility] ) Duplex Scan Artl Infl&Arturo O/F Hemo Compl Bi STD 2020 12:00:00 AM EDT MED[facility] ([facility]) Endoscopy Upper GI Complex Diagnostic 08/05/2020 12:00 :00 AM EST [facility] ([facility]) Colonoscopy Flexible Proximal To Splenic Flexure W/Biopsy Si ngle/ 08/05/2020 12:00:00 AM EST [facility] ([facility]) Colonoscopy,W/Directed Submucosal Injections, Any Substance 08/05/2020 12:00:00 AM EST [facility] ([facility]) ECG ROUTINE ECG W/LEAST 12 LDS W/I&R 05/25/2020 12:00: 00 AM EST eCW1 ([facility]) Intermediate Eye Exam Established Patient Intermediate Eye Exam Established Patient 03/18/2020 12:00:00 AM EDT NAHOIM ([facility]) Intermediate Eye Exam Established Patient Intermediate Eye Exam Established Patient 03/18/2020 12:00:00 AM EDT NAHOMI ([facility]) Results ID Date Data Source [id number] 02/10/2021 02:22:00 PM EDT [facility] ([facility]) Name Value Range Interpretation Code Description Data Niru rce(s) Supporting Document(s) Laboratory test finding (navigational concept) Laboratory test result [facility] ([facility]) ID Date Data Source [id number] 09/24/2020 05:38:00 AM EST [facility] Name Value Range Interpretation Code Description Data Niru rce(s) Supporting Document(s) Microorganism or agent identified in Unspecified speci men Negative for SARS-CoV-2 RNA. [facility] This lab was ordered by [facility] and reported by Department of Pathology and Laboratory Medicine at [facility]. ID Date Data Source [id number] 09/23/2020 05:34:00 PM EST [facility] Name Value Range Interpretation Code Description Data Niru rce(s) Supporting Document(s) Microorganism or agent identified in Unspecified speci men Negative for SARS-CoV-2 RNA. [facility] This lab was ordered by [facility] and reported by Department of Pathology and Laboratory Medicine at [facility]. ID Date Data Source [id number] 09/10/2020 03:21:00 PM EST [facility] 1 OrderSheet [facility] Emergency Department [address] [place] [address] Phone #: [phone] 09/10/2020 15:19 Patient: REBECCA THOMAS SR Sex: M : 1940 Age: 80yWEIGHT:134.9 kg (M) HEIGHT:68 inches (S) BMI:45.2ALLERGIES: No Known Drug Allergy, OystersDIAGNOSIS: Anemia, Congestive heart failure, Renal failure syndromeLAB ORDERSOrder Description Priority Entered Acknowledged InitialedBNP STAT 15:56 09/10/2020 15:57 Obdulia Mckeon; R.N.Blood Culture STAT 15:56 09/10/2020 17:07 Chace Mckeon X2 (Donny WAGNER; R.N.15:56 09/10/2020)Blood Culture STAT 15:56 09/10/2020 17:07 Chace Mckeon X2 (Donny WAGNER; R.N.16:06 09/10/2020)CBC w Diff STAT 15:56 09/10/2020 15:57 Obdulia Mckeon; R.N.CMP STAT 15:56 09/10/2020 15:57 Obdulia Mckeon; R.N.D-Dimer STAT 15:56 09/10/2020 15:57 Obdulia Mckeon; R.N.Lactic Acid STAT 15:56 09/10/2020 15:57 Obdulia Mckeon; R.N.Magnesium STAT 15:56 09/10/2020 15:57 Obdulia Mckeon; R.N.PT/PTT STAT 15:56 09/10/2020 15:57 Obdulia Mckeon; R.N.Troponin-T STAT 15:56 09/10/2020 15:57 Obdulia Mckeon; R.N.Venous Blood Gas STAT 15:56 09/10/2020 15:57 Obdulia Mckeon; R.N.Type and Screen STAT 15:56 09/10/2020 15:57 Obdulia Mckeon; R.N.Urinalysis (Clean STAT 15:56 09/10/2020 16:38 Austin Mckeon; R.N.COVID-19 CAH (Not STAT 17:15 09/10/2020 17:18 DorisSymptomatic as Latha Silva RNDefined by CDC) RN; Verbal order(09/10/2020) (Not per; Kilo Dejesus Test) PA 2 OrderSheet [facility] Emergency Department [address] [place] [address] Phone #: ext- [phone] 09/10/2020 15:19 Patient: REBECCA THOMAS SR Jus Sex: M : 1940 Age: 80y(Hospitalized) (Not)(Resident inCongregate CareSetting) (NotEmployed inHealthcare Setting) NOTES: prior to TransferDIAGNOSTIC STUDY ORDERSOrder Description Priority Entered Acknowledged InitialedChest Portable 1 STAT 15:56 09/10/2020 16:07 Obdulia MckeonView Klio WAGNER; R.N.(Oxygen?(No)) Reason for Study: Shortness of BreathCT ABD PEL W/O STAT 15:56 09/10/2020 16:07 Obdulia MckeonOral W/O IV Kilo WAGNER; R.N.Contrast(Oxygen?(No))(IV?(No)) Reason for Study: s/p colectomy Aug 12, decreasing HGB, leg swelling, renal failureUS Lower Ext STAT 15:56 09/10/2020 16:07 Obdulia MckeonVenous Bilateral Kilo WAGNER; R.N.(Oxygen?(No)) Reason for Study: recent surgery, hx CA, leg swelling, ? DVTMEDICATION/IV/DRIP/FLUID ORDERSOrder Description Priority Entered Acknowledged InitialedNitroGLYCERIN 16:57 09/10/2020 17:04 DorisTopical- Patch 0.4 Kilo WAGNER; Ricardo RNmg/hr (NOW x1)Lasix IVP 40 mg 17:05 09/10/2020 17:14 Obdulia Mckeon(NOW x1) Kilo WAGNER; R.N.GENERAL ORDERSOrder Description Priority Entered Acknowledged InitialedCardiac Monitor 15:56 09/10/2020 15:57 Obdulia Mckeon(continuous) Kilo WAGNER; R.N.Blood Pressure 15:56 09/10/2020 15:57 Irma Mckeon; R.N.EKG 15:56 09/10/2020 15:57 Obdulia Mckeon; R.N. 3 OrderSheet [facility] Emergency Department [address] [place] [address] Phone #: ext- [phone] 09/10/2020 15:19 Patient: REBECCA THOMAS SR Sex: M : 1940 Age: 80yNPO 15:56 09/10/2020 15:57 Obdulia Mckeon; R.N.Oxygen via NC 2-4 15:56 09/10/2020 15:57 Arleen Mckeoniters/min titrate Kilo WAGNER; R.N.>92%Obtain Old EKG 15:56 09/10/2020 15:57 Obdulia Mckeon; R.N.Obtain Old Records 15:56 09/10/2020 15:57 Obdulia Mckeon; R.N.Pulse Oximetry 15:56 09/10/2020 15:57 Riley Mckeon; R.N.Saline Lock 15:56 09/10/2020 15:57 Obdulia Mckeon; R.N.Vitals 15:56 09/10/2020 15:57 Obdulia Mckeon; R.N.Vitals every 15 15:56 09/10/2020 15:57 Keiry Mckeon; R.N.Warm blanket 15:56 09/10/2020 15:57 Obdulia Mckeon; R.N.Barriga Catheter 16:38 09/10/2020 16:38 Obdulia Mckeon Julie R.N.; R.N. Verbal order per; Kilo Bowles PADress Wounds 17:53 09/10/2020 18:06 Obdulia Mckeon(Telfa pad) (adaptic Kilo WAGNER; R.N.dressing to skinulcer RLE.)[Electronically signed by Obdulia Mckeon R.N. (19:00 09/10/2020)][Electronically signed by Kilo Bowles (19:15 09/10/2020)][Electronically locked by Obdulia Mckeon R.N. (19:00 09/10/2020)] Name Value Range Interpretation Code Description Data Niru rce(s) Supporting Document(s) ID Date Data Source [id number] 09/10/2020 03:21:00 PM EST [facility] 1 Medication Reconciliation Report [facility] Emergency Department [address] [place] [address] Phone #: ext- [phone] 09/10/2020 15:19 Patient: REBECCA THOMAS SR Sex: M : 1940 Age: 80yWeight: 134.9 kgHeight/Length: 68 in.BMI: 45.2ALLERGIES: No Known Drug Allergy, OystersThe patient's Home Medications are listed below:THE FOLLOWING MEDICATIONS NEED TO BE RECONCILED: Allopurinol Oral (300 mg) 1 tablet, daily Cholecalciferol Oral (25 MCG (1000 UT)) 2 tablets, daily D ulcolax Rectal (10 mg) 1 suppository, prn Fleet Enema Rectal (7-19 gm/118mL), prn HumaLOG Subcutaneous (100 unit/mL) sliding scale, 3x a day metOLazone Oral (2.5 mg) 1 tablet, 3x a week, Mon-Wed-Sun Milk of Magnesia Oral (400 mg/5mL) 30 ml, prn Pantoprazole Sodium Oral (40 mg) 1 tablet, daily Potassium Chloride ER Oral (10 meq) 1 tablet, daily PreserVision AREDS Oral 1 capsule, daily Spironolactone Oral (25 mg) 1 tablet, daily Sucralfate Oral (1 gm) 1 tablet, 4x a day Tamsulosin HCl Oral (0.4 mg) 1 capsule, dailyThe source(s) of the original Home Medication information:Not obtained. 2 Medication Reconciliation Report [facility] Emergency Department [address] [place] [address], [place] [address] Phone #: ext- [phone] 09/10/2020 15:19 Patient: REBECCA THOMAS SR Sex: M : 1940 Age: 80yThe following Medications were given to the patient in the Emergency Department:NITROGLYCERIN [TOPICAL- PATCH] Transdermal 0.4 mg, administered: 17:04 1Lasix [IVP] IVP 40 mg, administered: 17:14 09/10/2020The following Medications were prescribed to the patient:None. Name Value Range Interpretation Code Description Data Niru rce(s) Supporting Document(s) ID Date Data Source [id number] 09/10/2020 03:21:00 PM [facility] 1 Medication Administration Record [facility] Emergency Department [address] [place] [address] Phone #: [phone]- [phone] 09/10/2020 15:19 Patient: REBECCA THOMAS SR Sex: M : 1940 Age: 80yWeight: 134.9 kgHeight/Length: 68 inBMI: 45.2ALLERGIES: Oysters, No Known Drug Allergy Date/Time Medication Administered Medication OrderedGiven NITROGLYCERIN [TOPICAL- PATCH] NitroGLYCERIN Topical- Patch 0.417:04 09/10/2020 (NITROGLYCERIN TRANSDERMAL) mg/hr (NOW x1)Latha Silva RN Dose: 0.4 mg Patch/Pad TransdermalGiven LASIX [IVP] Lasix IVP 40 mg (NOW x1)17:14 09/10/2020 Dose: 40 mg Obdulia Barillas R.N. Site: #1 right Name Value Range Interpretation Code Description Data Niru rce(s) Supporting Document(s) ID Date Data Source [id number] 09/10/2020 03:21:00 PM [facility] 1 General Instructions [facility] Emergency Department [address] [place] [address] Phone #: ext- [phone] 09/10/2020 15:19 Patient: REBECCA THOMAS SR Sex: M : 1940 Age: 80yAcute moderate congestive heart failure.Renal failure.Anemia (acute on chronic anemia).Skin ulceration on the right lower leg.(recent post op- colectomy secondary to bowel Ca).(Electronically signed by KRISTY Tipton 09/10/2020 19:15) Name Value Range Interpretation Code Description Data Niru rce(s) Supporting Document(s) ID Date Data Source [id number] 09/10/2020 03:21:00 PM [facility] 1 Clinical Report - Nurses [facility] Emergency Department [address] [place] [address] Phone #: ext- [phone] 09/10/2020 15:19 Patient: REBECCA THOMAS SR Sex: M : 1940 Age: 80yTRIAGEArrived by private vehicle. Historian: patient. Unaccompanied. ( WAS LETHARGIC TODAY bp162/90,alert and oriented sleepy labs worse ems was called there earlier and pt refused to go then ems was calledback to come here fs 118).Acuity: LEVEL 3.Chief Complaint: (lethargic).Alert.This started today. ( increase edema in legs).Treatment FIRE EATER:None. --15:29 09/10/20 Obdulia Mckeon R.N.15:20 09/10/20. BP: 117/61. MAP: 79. HR: 103. RR: 16. O2 saturation: 97%. Temp: 98.2 F. Pain levelnow: 0/10. --15:29 09/10/20 Mike, Obdulia, R.N.Weight: 134.9 kg measured. Height/Length: 68 inches Per Patient. BMI: 45.2. --15:20 09/10/20 Obdulia Mckeon R.N.MedicationsCholecalciferol Oral (Tablet 25 MCG (1000 UT)) 2 tablets, daily. --15:34 09/10/20 Latha Silva RN Tamsulosin HCl Oral (Capsule 0.4 mg) 1 capsule, daily. --15:35 09/10/20 Latha Silva RN Pantoprazole Sodium Oral (Tablet Delayed Release 40 mg) 1 tablet, daily. --15:35 09/10/20 DIVYA Still Potassium Chloride ER Oral (Tablet Extended Release 10 meq) 1 tablet, daily. --15:36 09/10/20 DIVYA Still PreserVision AREDS Oral 1 capsule, daily. --15:37 09/10/20 Latha Silva RN Sucralfate Oral (Tablet 1 gm) 1 tablet, 4x a day. --15:37 09/10/20 Latha Silva RN Allopurinol Oral (Tablet 300 mg) 1 tablet, daily. --15:38 09/10/20 Latha martin RN Milk of Magnesia Oral (Suspension 400 mg/5mL) 30 ml, as needed. --15:38 09/10/20 Latha Silva RN Spironolactone Oral (Tablet 25 mg) 1 tablet, daily. --15:39 09/10/20 Latha Silva RN Dulcolax Rectal (Suppository 10 mg) 1 suppository, as needed. --15:41 09/10/20 Latha Silva RN Fleet Enema Rectal (Enema 7-19 gm/118mL), as needed. --15:41 09/10/20 Latha Silva RN HumaLOG Subcutaneous (Solution 100 unit/mL) sliding scale, 3x a day. --15:42 09/10/20 DIVYA Still metOLazone Oral (Tablet 2.5 mg) 1 tablet, 3x a week (Mon-Wed-Fri). --15:43 09/10/20 Latha Silva RN. 2 Clinical Report - Nurses [facility] Emergency Department [address] [place] [address] Phone #: ext- [phone] 09/10/2020 15:19 Patient: REBECCA THOMAS SR Sex: M : 1940 Age: 80yAllergiesNo Known Drug Allergy. --15:44 09/10/20 Latha Silva RNOysters. --15:44 09/10/20 Latha Silva RN.PROBLEMS:Nephrolithiasis.Gout.Chronic Venous Insufficiency.Chronic kidney disease stage 4.Hyperlipidemia.Hypothyroidism.Pulmonary Hypertension.Colon Cancer: (Sigmoid).Prostate Cancer.Atrial Fibrillation.Colostomy present.Cor pulmonale.Hypertension.Diabetes Mellitus.Cirrhosis. --15:50 09/10/20 Latha Silva RN.ADDITIONAL SURGERIES:Colectomy.Colostomy. --15:50 09/10/20 Latha Silva, RNProstatectomy. --15:52 09/10/20 Latha Silva RN.HistoryPAST MEDICAL HX: Immunizations: up-to-date.SOCIAL HX: Smoker- current status unknown (quit in the 70s). Alcohol use. (quit 2 years ago). No druguse. He was offered HIV testing but declined and hepatitis C testing but declined. He has not traveledoutside the [place]Infectious disease exposure: No infectious disease exposure. (covid test negative). Patient is not a knowncarrier of tuberculosis, hepatitis, HIV, MRSA or VRE. Patient is not a known carrier of CRE.SELF HARM ASSESSMENT: Self harm assessment was performed. The patient answered "no" to th equestion(s) "Have you recently felt down, depressed, or hopeless?", "Do you have thoughts of harming orkilling yourself?", "Do you have a plan for harming or killing yourself?", "Have you recently had thoughtsabout harming or killing others?", "Do you have any dangerous items in your possession?", "Have younoticed less interest or pleasure in doing things?", "Are you here because you tried to hurt yourself?" and"Have you ever tried to hurt yourself before today?".ABUSE ASSESSMENT: Abuse assessment. Abuse denied. No suspicion of abuse. No report of abuse.NUTRITIONAL RISK ASSESSMENT: The nutritional risk assessment revealed no deficiencies. 3 Clinical Report - Nurses [facility] Emergency Department [address] [place] [address] Phone #: ext- [phone] 09/10/2020 15:19 Patient: REBECCA THOMAS SR Sex: M : 1940 Age: 80y LEARNING NEEDS ASSESSMENT: The learning needs assessment revealed no barriers. FALL RISK ASSESSMENT: Fall risk assessment completed. Risk factors identified include patient impairment of mobility. Fall interventions initiated. Patient placed in wheelchair. Bed in low position. Brakes on. Instructions given to patient including fall prevention information. Verbalizes understanding. FUNCTIONAL ASSESSMENT: Functional assessment performed: requires assistance with the activities of daily living; uses walker. SKIN INTEGRITY ASSESSMENT: Skin integrity risk assessment was performed. Risk factors identified include restricted mobility (right lower leg wound). --15:29 09/10/20 Obdulia Mckeon R.N. Interventions To treatment room. Advanced care plan. Patient does not have advanced directive. (full code). --15:29 09/10/20 Obdulia Mckeon R.N.PHYSICAL ASSESSMENTGENERAL / NEURO / PSYCH: Alert. Oriented X 4.HEENT: No facial asymmetry noted. Mucous membranes are pink.RESPIRATORY: Respirations not labored. Chest nontender. Decreased breath sounds.CVS: Cardiac rhythm: sinus tachycardia. Capillary refill less than 2 seconds. Pulses within normal limits .GI / : Abdomen soft and nontender and normal bowel sounds.SKIN: Skin is pale. Swelling (+3 edema in legs bilaterally). ( wound right lower leg). --15:31 09/10/20Obdulia Mckeon R.N. CVS: Cardiac rhythm: atrial fibrillation. --15:38 09/10/20 Obdulia Mckeon R.N. GI / : ( colostomy with stool on left abd , dressing dry and intact mid abd). --15:46 09/10/20 Obdulia Mckeon R.N.NURSING PROGRESS NOTESCardiac monitor and NIBP monitor placed on patient; monitor alarms on. Patient gowned. Reassurancegiven. Two patient identifiers checked. Call light placed in reach. Side rails up x 2. Bed placed inlowest position. Brakes of bed on. Patient ready for evaluation- PA notified. --15:30 09/10/20 Obdulia Mckeon R.N. EKG time: (15:35 09/10/2020). EKG was performed by a nurse and shown to the PA. --15:38 09/10/20 Obdulia Mckeon R.N. 15:39 09/10/2020 Site #1 started via IV in the right antecubital space with an 18g angiocath, with aseptic technique and good blood return; one attempt. --15:39 09/10/20 Obdulia Mckeon R.N. ( colostomy emptied stoma red and moist). --16:03 09/10/20 Obdulia Mckeon R.N. 4 Clinical Report - Nurses [facility] Emergency Department [address] [place] [address] Phone #: ext- [phone] 09/10/2020 15:19 Patient: REBECCA THOMAS SR Sex: M : 1940 Age: 80y( portable xray completed). --16:06 09/10/20 Obdulia Mckeon R.N.[facility]. --16:06 2/19/21 Obdulia Mckeon R.N.Patient transported to CT by stretcher with tech. --16:06 09/10/20 Obdulia Mckeon R.N.15:45 09/10/20. BP: 109/63. MAP: 78. HR: 110. RR: 17. O2 saturation: 97%. --16:10 09/10/20 Obdulia Mckeon R.N.16:00 09/10/20. BP: 105/61. MAP: 75. HR: 112. RR: 16. O2 saturation: 98%. --16:11 09/10/20 Obdulia Mckeon R.N.16:37 09/10/20. 18 fr barriga catheter placed in ED. Reason for indwelling catheter: critical need to monitorintake and output. During procedure hand hygiene observed and sterile equipment and aseptic techniqueused. Return of 100 mL urine; attached to bedside drainage bag positioned below the bladder and urimeterand secured with stabilization device. He tolerated procedure well. Patient ID band checked for patientname and birthdate: patient confirmed. Instructions provided to collect clean catch urine and patientverbalized understanding. Clean catch urine collected; sample sent to lab for urinalysis. Specimen labeledin the presence of the patient. ( Kilo Bowles notified that pt is incontinent cath advised, Kilo iPerre notified that when underwriter emptied colostomy there was no visible blood but now there is blood incolostomy bag). --16:37 09/10/20 Obdulia Mckeon R.N.17:04 09/10/2020 NITROGLYCERIN (Nitroglycerin Transdermal) Transdermal Patch/Pad 0.4 mg applied tothe right chest. Allergies verified and confirmed 5 rights. Information reviewed with patient including reasonfor taking this medication, signs of allergic reaction and precautions. Verbalizes understanding. --17: Latha Silva RN17:14 09/10/2020 Lasix IVP 40 mg given over 2 minute(s) via site #1. Allergies verified and confirmed 5rights. IV patency established. IV site checked: no pain, redness, or swelling. IV flushed thoroughly pre-and post-medication administration. IVP given by RN. Information reviewed with patient including reasonfor taking this medication, signs of allergic reaction and precautions. Verbalizes understanding. --17:142 Obdulia Mckeon R.N.Patient ID band checked for patient name and birthdate: patient confirmed. COVID-19 specimen obtainedby RN via nasopharyngeal swab. Labeled in the presence of the patient and sent to lab (rapid). --17:152 Obdulia Mckeon R.N.( ultasound at bedside). --17:22 09/10/20 Obdulia Mckeon R.N.17:31 09/10/20. O2 saturation: 97% on room air. Additional comments: Linda Bowles informed that pt nancy room air, Kilo Bowles insisting that pt have oxygen because pt is in CHF and short of breath, pt hasexcellent wave form and when pt asked if he was short of breath pt stated he was not. --17:32 09/10/20Obdulia Mckeon R.N. 5 Clinical Report - Nurses [facility] Emergency Department [address] [place] [address] Phone #: ext- [phone] 09/10/2020 15:19 Patient: REBECCA THOMAS SR Sex: M : 1940 Age: 80y ( adaptic dressing with kerlex applied to skin tears on right lower leg). --18:07 09/10/20 Obdulia Mckeon R.N. 17:07 09/10/20. BP: 121/74. MAP: 89. HR: 112. RR: 19. O2 saturation: 97%. --18:14 09/10/20 Obdulia Mckeon R.N. 17:15 09/10/20. BP: 132/73. MAP: 92. HR: 113. RR: 16. O2 saturation: 97%. --18:15 09/10/20 Obdulia Mckeon R.N. 17:45 09/10/20. BP: 114/81. MAP: 92. HR: 115. RR: 18. O2 saturation: 97%. --18:15 09/10/20 Obdulia Mckeon R.N. 18:00 09/10/20. BP: 126/82. MAP: 96. HR: 113. RR: 18. O2 saturation: 96%. --18:16 09/10/20 Obdulia Mckeon R.N. 18:15 09/10/20. BP: 126/60. MAP: 82. HR: 118. RR: 18. O2 saturation: 96%. --18:16 09/10/20 Obdulia Mckeon R.N. late entry - 17:00 09/10/20. ( resting comfortable at present). --18:17 09/10/20 Obdulia Mckeon R.N. 18:30 09/10/20. BP: 116/62. MAP: 80. HR: 120. RR: 17. O2 saturation: 95%. --18:46 09/10/20 Obdulia Mckeon R.N. Intake Output Stool output: 350 mL measured; return noted as liquid. (colostomy greenish brown emptied). --16:03 09/10/20 Obdulia Mckeon R.N.DISPOSITION / DISCHARGE ( [facility] stated that they do not want a nurse to nurse report this was told Néstor). --17:34 09/10/20 Obdulia Mckeon R.N. 18:03 09/10/20. ( eboni thomas notified that pt will be transferred to [place] and should be leaving via ambulance around 18:30 she verbalized understanding). --18:08 09/10/20 Obdulia Mckeon R.N. 18:43 09/10/20. BP: 106/59. MAP: 74. HR: 115. RR: 20. O2 saturation: 98%. Temp: 98.1 F. Pain level now: 10/30. --18:44 09/10/20 Obdulia Mckeon R.N. Transferred ([facility]). Transported via stretcher by EMS with O2 and emergency medications. Bed obtained and ready. --18:45 09/10/20 Obdulia Mckeon R.N. Departure time: 19:00 09/10/2020. --19:00 09/10/20 Obdulia Mckeon R.N. 6 Clinical Report - Nurses [facility] Emergency Department [address] [place] [address] Phone #: ext- [phone] 09/10/2020 15:19 Patient: REBECCA THOMAS SR Sex: M : 1940 Age: 80yLocked/Released at 09/10/2020 19:00 by Obdulia Mckeon R.N. Name Value Range Interpretation Code Description Data Niru rce(s) Supporting Document(s) ID Date Data Source [id number] 09/10/2020 03:21:00 PM EST [facility] 1 Clinical Report - Physicians/Mid Levels [facility] Emergency Department [address] [place] [address] Phone #: ext- [phone] 09/10/2020 15:19 Patient: REBECCA THOMAS SR Sex: M : 1940 Age: 80y Time Seen: 15:32 09/10/2020. Arrived- By ambulance. Historian- EMS personnel. Disposition decision: 17:19 09/10/2020.HISTORY OF PRESENT ILLNESS Chief Complaint: lethargy, tachycardia, low HGB. This started today I received a call several hours earlier from Dr Telles regarding this pt. Pt is a [facility] resident who had partial colectomy secondary to bowel Ca performed in Aug [address] [facility], and was sent to [facility] post op for rehab. Dr Telles stated that today pt has been increasingly SOB and tachycardic, and appeared somnolent. Stated HGB had declined to 7.5. EMS was called to bring pt to the ED for further evaluation, however, pt refused to go to the ED at that time. Dr telles eventually re-engaged the pt repeated labs, (HGB at 1332 7.0.) and convinced pt to come to the ED. Pt is a full code. Pt sates no chest pain or abd pain, states "legs are swollen" and has SOB, states he received blood transfusion prior to surgery in [place]. Hx Afib, stage 4 kidney disease, colon ca, prostate ca, pulmonary HTN. No loss of appetite, weight loss, headache, visual disturbance or muscle aches. He has had fatigue and weakness. Denies sleep problem. No decreased urine output. Similar symptoms previously. Patient has had similar symptoms several times. Recent medical care: The patient was seen recently at another facility and hospitalized.REVIEW OF SYSTEMSNo fever, sore throat, sinus drainage, nasal congestion or cough. No chest pain, abdominal pain, nausea,vomiting or diarrhea. No black stools, bloody stools, chills, difficulty with urination or skin rash. No backpain, headache, blackouts or double vision. The patient has had moderate difficulty breathing at rest. Hehas had moderate calf pain involving the right leg and left leg. He has had difficulty with ambulation.PAST HISTORYSee nurses notes. Problems: Nephrolit hiasis. Gout. Chronic Venous Insufficiency. Chronic kidney disease stage 4. Hyperlipidemia. Hypothyroidism. Pulmonary Hypertension. Colon Cancer. (Sigmoid) Prostate Cancer. Atrial Fibrillation. Colostomy present. 2 Clinical Report - Physicians/Mid Levels [facility] Emergency Department [address] [place] [address] Phone #: ext- [phone] 09/10/2020 15:19 Patient: REBECCA THOMAS SR Sex: M : 1940 Age: 80y Cor pulmonale. Hypertension. Diabetes Mellitus. Cirrhosis. Additional Surgeries: Colectomy. Colostomy. Prostatectomy. Medications: metOLazone Oral (Tablet 2.5 mg) 1 tablet, 3x a week (Mon-Wed-Sun). HumaLOG Subcutaneous (Solution 100 unit/mL) sliding scale, 3x a day. Fleet Enema Rectal (Enema 7-19 gm/118mL), as needed. Dulcolax Rectal (Suppository 10 mg) 1 suppository, as needed. Spironolactone Oral (Tablet 25 mg) 1 tablet, daily. M ilk of Magnesia Oral (Suspension 400 mg/5mL) 30 ml, as needed. Allopurinol Oral (Tablet 300 mg) 1 tablet, daily. Sucralfate Oral (Tablet 1 gm) 1 tablet, 4x a day. PreserVision AREDS Oral 1 capsule, daily. Potassium Chloride ER Oral (Tablet Extended Release 10 meq) 1 tablet, daily. Pantoprazole Sodium Oral (Tablet Delayed Release 40 mg) 1 tablet, daily. Tamsulosin HCl Oral (Capsule 0.4 mg) 1 capsule, daily. Cholecalciferol Oral (Tablet 25 MCG (1000 UT)) 2 tablets, daily. Allergies: No Known Drug Allergy. Oysters.SOCIAL HISTORYFormer smoker. Alcohol use. (former). No drug use. No recent travel.ADDITIONAL NOTESThe nursing notes have been reviewed with agreement regarding the chief complaint, HPI, ROS, PMH andpatient medications and allergies.PHYSICAL EXAMVital Signs: 09/10/2020 15:20 BP: 117/61. MAP: 79. HR: 103. RR: 16. O2 saturation: 97%. Temp: 98.2 F.Pain level now: 0/10. Have been reviewed as abnormal and appear to be correct. Blood pressurenormal. Mean arterial pressure- normal. Tachycardic. Respiratory rate normal. Temperature normal.Oxygen saturation normal.Appearance: Anxious. Patient in moderate distress. Distress appears due to anxiety.Eyes: Pupils equal, round and reactive to light. Eyes normal inspection.ENT: Ears normal. Nose normal. Pharynx normal.Neck: Normal inspection. Neck supple. 3 Clinical Report - Physicians/Mid Levels [facility] Emergency Department [address] [place] [address] Phone #: ext- [phone] 09/10/2020 15:19 Patient: REBECCA THOMAS SR [facility]#: [id number] Sex: M : 1940 Age: 80y CVS: Tachycardia. Normal heart rhythm. Heart sounds normal. Pulses normal. Respiratory: No respiratory distress. Painless inspiration. Breath sounds normal. Chest nontender. Abdomen: No visible injury. Soft and nontender. Bowel sounds normal. No mass. Distention. No tenderness. Moderately obese. (colostomy bad present- normal appearing greenish bowel contents present in collection bag.). Back: Normal inspection. Skin: Skin warm and dry. Normal skin color. No rash. Normal skin turgor. (quarter sized superficial skin ulcer R anterior lower leg, non infected in appearance.). Extremities: Bilateral 2+ pitting edema of the lower extremities involving both feet, both ankles and both lower legs. Extremities exhibit normal ROM. Neuro: Oriented X 3. No motor deficit. No sensory deficit. Reflexes normal.LABS, X-RAYS, AND EKGEKG: EKG time: 15:38 09/10/2020. Rate: 116. Atrial fibrillation. Normal QRS complex. Normal axis.Normal ST and T waves, QT and QTc. atrial fibrillation with premature ventricular or aberrantly conductedcomplexes. Septal infarct of indeterminate age. Prior EKG unavailable. The study has been interpretedcontemporaneously by me. The study has been independently viewed by me. The EKG appears to be agood tracing. I agree with and confirm the computer reading of the EKG. Interpretation time: 15:39009/10/2020.Chest X-ray: (CHF). Views: AP (portable). Technique: good. The X-rays were independently viewedby me and interpreted by the radiologist and contemporaneously by me. Interpretation time: 16:57009/10/2020.Abdominal CT: CHF. Small bilateral pleural effusions. Cirrhosis. Shunt in the liver. Mild ascites.Varicosities in the upper abdomen. Gall bladder contracted and not well evaluated. Ostomy in the left lowerquadrant. No evidence of obstruction. Fat containing umbilical hernis. Soft tissue densities in the lower rightquadrant of the subcutaneous soft tissues probably represent injection granulomas. Mild anasarca.Osseous structures show degenerative changes. Study type: abdomen and pelvis. Abdominal CTperformed without contrast. The study was independently viewed by me and interpreted by the radiologistand contemporaneously by me. Interpretation time: 17:07 09/10/2020.Lower Extremity Sonography: No visualized DVT bilateral lower extremities. Study is limited with limitedvisualization of the distal right superficial femoral vein and bilateral calf veins. Study type: utilized duplexsonography. The exam was performed by a cdl service technician. Interpretation time: 18:03 09/10/2020.Laboratory Tests: Laboratory tests have been ordered, with results reviewed and considered in themedical decision making process. COVID-19 CAH: (BRENT: 09/10/2020 17:10) ( MsgRcvd 09/10/2020 17:33) Final results Test Result Flag Units (Reference) COVID-19 NOT DETECTED COVID-19 REENTER NOT DETECTED { PROCEDURAL CONTROL VALID KIT LOT # _[id number] 09/10/20.DW . KIT EXP DATE _48-14-46 09/10/20.DW . NORMAL RANGE IS NOT DETECTEDNEGATIVE RESULTS SHOULD BE TREATED PRESUMPTIVE AND, IF INCONSISTENT WITHCLINICAL SIGNS AND SYMPTOMS OR NECESSARY FOR PATIENT MANAGEMENT, SHOULD BETESTED WITH DIFFERENT AUTHORIZED OR CLEARED MOLECULAR TESTS. NEGATIVE RESULTSDO NOT PRECLUDE SARS-CoV-2 INFECTION AND SHOULD NOT BE USED THE SOLE BASISFOR PATIENT MANAGEMENT DECISIONS. BNP: (BRENT: 09/10/2020 15:40) [facility] Final results 4 Clinical Report - Physicians/Mid Levels [facility] Emergency Department [address] [place] [address] Phone #: ext- [phone] 09/10/2020 15:19 Patient: REBECCA THOMAS SR Sex: M : 1940 Age: 80y Test Result Flag Units (Reference) BNP 69212 H PG/ML (0 - 450)CBC w Diff: (BRENT: 09/10/2020 15:40) ( MsgRcvd 09/10/2020 16:12) Final results Test Result Flag Units (Reference) CBC W/AUTOMATED DIFF COMPLETE BLOOD COUNT WBC 4.3 10/uL (4.2 - 11.0) RBC 2.66 L 10/uL (4.50 - 6.30) HEMOGLOBIN 7.7 L g/dL (14.0 - 16.0) HEMATOCRIT 24.3 L % (41.0 - 51.0) MCV 91.4 fL (80.0 - 94.0) MCH 28.9 pg (27.0 - 34.0) MCHC 31.7 g/dL (31.0 - 36.0) RDW 17.3 H % (11.5 - 14.8) PLATELETS 102 L 10/uL (150 - 450) MPV 9.0 fL (7.4 - 10.4) NEUT 76.4 % (37.0 - 80.0) LYMPH 5.5 L % (25.0 - 40.0) MONO 10.1 H % (3.0 - 8.0) EOS 7.1 H % (0.0 - 7.0) BASO 0.2 % (0.0 - 2.0) %IG 0.7 H % (0.0 - 0.0) %NRBC 0.0 % (0.0 - 0.0) #NEUT 3.31 10/uL (2.00 - 6.90) #LYMPH 0.24 L 10/uL (0.60 - 3.40) #MONO 0.44 10/uL (0.00 - 0.90) #EOS 0.31 10/uL (0.00 - 0.70) #BASO 0.01 10/uL (0.00 - 0.20) #IG 0.03 10/uL (0.00 - 0.10) #NRBC 0.00 10/uL (0.00 - 0.00) MANUAL DIFF NOT INDICATED RBC MORPH NOT INDICATEDCMP: (BRENT: 09/10/2020 15:40) ( MsgRcvd 09/10/2020 16:43) Final results Test Result Flag Units (Reference) COMPREHENSIVE METABOLIC PANEL COMPREHENSIVE METABOLIC PANEL SODIUM 137 mEq/L (134 - 153) POTASSIUM 4.6 mEq/L (3.6 - 5.0) CHLORIDE 105 mEq/L (98 - 107) CO2 21 L MEQ/L (22 - 30) GLUCOSE 88 MG/DL (70 - 99) BUN 69 H MG/DL (7 - 21) CREATININE 3.2 H MG/DL (0.7 - 1.5) BUN/CREAT 22 (8 - 27) TOTAL PROTEIN 7.0 G/DL (6.3 - 8.2) ALBUMIN 2.9 L G/DL (3.9 - 5.0) GLOBULIN 4.1 H GM/DL (2.4 - 3.2) A/G RATIO 0.7 L (0.8 - 2.0) CALCIUM 9.3 MG/DL (8.4 - 10.2) TOTAL BILI <0.7 MG/DL (0.2 - 1.3) ALKALINE PHOS 250 H U/L (38 - 126) SGOT/AST 19 U/L (5 - 40) SGPT/ALT 21 U/L (7 - 56) ANION GAP 11.0 mmol/L (8.0 - 16.0) AGE 80 yrs 5 Clinical Report - Physicians/Mid Levels [facility] Emergency Department [address] [place] [address] Phone #: ext- [phone] 09/10/2020 15:19 Patient: REBECCA THOMAS SR Luu Sex: M : 1940 Age: 80y NON-AA GFR 20 mL/min AFR AMER GFR 24 mL/min Male GFR Interprentation 20-49 yrs >60 mL/min Lpamqx04-04 yrs >56 mL/min Normal 60-69 yrs >49 mL/min Normal 70-79yrs>42 mL/min Normal 80 and above >35 mL/min Normal Female GFRInterpretation 20-39 yrs >60 mL/min Normal 40-49 yrs >58 mL/minNormal 50-59 yrs >51 mL/min Normal 60-69 yrs >45 mL/min Csqkfc99-58 yrs >39 mL/min Normal 80 and above >32 mL/min NormalD- Dimer: (BRENT: 09/10/2020 15:40) ( [facility]20) Fi nal results Test Result Flag Units (Reference) D-DIMER QUANT 2.79 H ug/mL (0.27 - 0.50)Lactic Acid: (BRENT: 09/10/2020 15:40) ( [facility] 09/10/2020 16:13) Final results Test Result Flag Units (Reference) LACTIC ACID 1.2 MMOL/L (0.2 - 2.2)Magnesium: (BRENT: 09/10/2020 15:40) [facility] 16[facility]33) Final results Test Result Flag Units (Reference) MAGNESIUM 2.2 MG/DL (1.7 - 2.2)PT/PTT: (BRENT: 09/10/2020 15:40) [facility] 16:20) Final results Test Result Flag Units (Reference) PROTIME 15.6 H SECONDS (11.0 - 15.5) INR 1.18 (0.93 - 1.23) PTT 38.2 H SECONDS (24.8 - 36.7) \\BLDo\\INR INTERPRETATION\\BLDx\\ Therapeutic range for Coumadin andrelated oral anticoagulants. -International Normalized Ratio (INR): 2.0 - 3.0 for VenousThrombosis, Pulmonary Embolus, Tissue heart valves, Acute ID Atrial Fibrillation, Valvular heart diseaseand recurrent Systemic Embolism. -International Normalized Ratio (INR): 2.5 - 3.5 forMechanical Prosthetic valve.Troponin-T: (BRENT: 09/10/2020 15:40) ( [facility] 09/10/2020 16:27) Final results Test Result Flag Units (Reference) TROPONIN T 0.04 NG/ML (0.00 - 0.10) TROPONIN T0.1 ng/ml Recommended as the clinical threshold value forTroponin T.Venous Blood Gas: (BRENT: 09/10/2020 15:40) ( [facility] 09/10/2020 16:14) Final results Test Result Flag Units (Reference) pH V 7.28 L (7.32 - 7.43) pCO2 V 45.9 mm/HG (38.0 - 51.0) pO2 V 36.4 mm/HG (30.0 - 55.0) HCO3 V 21.0 L meq/L (22.0 - 29.0) TCO2 V 22.4 meq/L (22.0 - 29.0) BASE EXCESS -5.5 L (-2.0 - 2.0) O2 SAT V 59.8 % (40.0 - 85.0)Type and Screen: (BRENT: 09/10/2020 15:40) ( [facility] 09/10/2020 17:56) Final results Test Result Flag Units (Reference) ABO GROUP O RH TYPE POSITIVE AB SCREEN POSITIVE A (NORMAL: NEGAT 6 Clinical Report - Physicians/Mid Levels [facility] Emergency Department [address] [place] [address] Phone #: ext- [phone] 09/10/2020 15:19 Patient: REBECCA THOMAS SR Sex: M : 1940 Age: 80y { ABO/RH REENTER O POSITIVE{ AB SCREEN RE-ENTER POSITIVE Urinalysis: (BRENT: 09/10/2020 15:30) [facility] 17:07) Final results Test Result Flag Units (Reference) URINALYSIS URINALYSIS SOURCE R COLOR yellow (NORMAL: Yello CLARITY clear (NORMAL: Clear SPEC GRAVITY 1.015 (1.001 - 1.030 pH 5 (5 - 9) GLUCOSE NORM (NORMAL: Negat BILIRUBIN NEG (NORMAL: Negat KETONE NEG (NORMAL: Negat PROTEIN 15 (NORMAL: Negat NITRITE NEG (NORMAL: Negat BLOOD NEG (NORMAL: Negat LEUK EST NEG (NORMAL: Negat UROBILINOGEN NOR (less than 1.[address] ABD PEL W/O Oral W/O IV Contrast: (BRENT: 09/10/2020 15:56) ( [facility] 16[facility]30) In Progress CT ABD Reason(s): s/p colectomy Aug 12, decreasing HGB, leg swelling, renal failure TRANSPORTATION: S IV? IV?(No) O2? Oxygen?(No) Vandana.PROGRESS AND PROCEDURESCourse of Care: 16:57 Sep 10 2020. Pt with BNP 16488 today, no baseline available, CXR c/w with acuteCHF, pt in renal failure to day creatinine at 3.2 will treat with nitro patch. HGB/ HCT 7.7 and 24.3 v. 7.0 and22.3 at 1300 today. Feel CHF likely causing pt's symptoms v. acute anemia. Planning on transfer to [facility] once w/u complete due to multiple co-morbidities and lack of specialties here. 17:18 Sep 10 2020. Pt will be transferred to [facility] ED (auto accept) Dr Daugherty ED accepting. Critical care performed (30 minutes). Time is exclusive of separately billable procedures. Time includes: direct patient care, patient reassessment, coordination of patient care, interpretation of data (laboratory data, pulse oximetry and chest xrays), review of patient's medical records and documentation of patient care- see progress notes. Disposition: Benefits, risks and alternatives to transfer explained to patient. Transferred. Pressure ulcer present prior to transfer. Summary of care (CCDA) provided to transport team, EMS, patient and transfer facility via paper. [facility]. UTI (catheter associated) was not present prior to transfer. Vascular infection (catheter associated) was not present prior to transfer. Surgical site infection was not present prior to transfer. An object left in surgery was not present prior to transfer. Blood incompatibility was not present prior to transfer. Air embolism was not present prior to transfer. 7 Clinical Report - Physicians/Mid Levels [facility] Emergency Department [address] [place] [address] Phone #: ext- [phone] 09/10/2020 15:19 Patient: REBECCA THOMAS SR Sex: M : 1940 Age: 80yCLINICAL IMPRESSION Acute moderate congestive heart failure. Renal failure. Anemia (acute on chronic anemia). Skin ulceration on the right lower leg. (recent post op- colectomy secondary to bowel Ca).(Electronically signed by KRISTY Tipton 09/10/2020 19:15) Name Value Range Interpretation Code Description Data Niru rce(s) Supporting Document(s) ID Date Data Source [id number] 09/10/2020 03:21:00 PM [facility] Addenda for REBECCA THOMAS SR VisitID: [id number] Date: 10:39blood culture report positive, pt was transferred to [facility] and report was faxed there [phone](Electronically signed by Shaina Dominguez RN - 09/12/2020 10:39)09/13/2020 10:45Pt blood cultures positive for staph simulans, sensitivity present; Pt was tx to [facility], still there [id number], faxed to [phone](Electronically signed by Naz Ayala R.N. 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 - 09/13/2020 14:31) Name Value Range Interpretation Code Description Data Niru rce(s) Supporting Document(s) ID Date Data Source [id number] 09/13/2020 01:46:00 PM [facility] [address] [place] [address] PHONE: [phone] FAX: [phone] Name .................. : SHANIA Luu Acct Number.................. : [id number] ROOM. ................. : TR-02 MR Number ................... : [id number] Stay type ............. : E/R Discharge Date......... ... : 09/10/20 Admit Date ......... : 09/10/20 Admit Phys .................... : WILBUR GLADYS Date of ....... : 1940 Family Phys ................... : JERI HARD Phone .................. : [phone] Age ................................ : 80 Film# .................. .:[id number] Sex ................................. : M Unsigned transcriptions are preliminary reports and do not represent a medical or legal document CT ABD & PEL[place] W/[place] [id number] COMPLETE:09/10/20 16:30 BEM 4720 Reason(s): s/p colectomy Aug 12, decreasing HGB, leg swelling, renal failure CT SCAN OF THE ABDOMEN AND PELVIS WITHOUT CONTRAST: INDICATION: Status post colectomy on 08/12. Decreasing hemoglobin, leg swelling, renal failure. COMPARISON: No prior examination available for comparison. FINDINGS: The lung bases show vascular congestion and edema consistent with CHF as well as small bilateral pleural effusions. The heart is enlarged. Examination of the abdomen is limited by motion artifact. There is a shunt identified in the liver. Mild ascites is identified. The pancreas appears unremarkable. Diffuse atherosclerotic disease is identified. A nonobstructive calculus is identified at the lower pole of the right kidney measuring 7 mm. The left kidney appears unremarkable. The spleen is within normal limits. The gallbladder is contracted and not well evaluated. The pancreas appears unremarkable. The bilateral adrenal glands are identified. There are varicosities identified in the upper abdomen. The liver appears cirrhotic. There are multiple nodules identified in the anterior subcutaneous soft tissues of the right abdomen probably injection granulomas. The largest measures approximately 3.4 x 1.8 cm in size. There is an ostomy identified in the left anterior abdomen. The urinary bladder appears unremarkable. An umbilical hernia is identified containing omental fat. Portions of the left abdomen are excluded from the examination as they are outside of the field of view. The osseous structures show diffuse degenerative changes. IMPRESSION: CHF. Small bilateral pleural effusions. Cirrhosis. Shunt in the liver. Mild ascites. Varicosities in the upper abdomen. Nonobstructive 7 mm calculus at the lower pole of the right kidney. The gallbladder is contracted and not well evaluated. Ostomy in the left lower quadrant. No evidence of obstruction. Fat- containing umbilical hernia. Soft tissue densities in the right lower quadrant of the subcutaneous soft tissues probably represent injection granulomas. Mild anasarca. Osseous structures show degenerative changes. Page 1 of [address] [place] [address] PHONE: [phone] FAX: [phone] Name .................. : SHANIA Luu Acct Number.................. : [id number] ROOM. ................. : TR- MR Number ................... : [id number] Stay type ............. : E/R Discharge Date......... ... : 09/10/20 Admit Date ......... : 09/10/20 Admit Phys .................... : WILBUR GLADYS Date of ....... : 1940 Family Phys ................... : TELLES HARD Phone .................. : [phone] Age ................................ : 80 Film# .................. .:[id number] Sex ................................. : M Unsigned transcriptions are preliminary reports and do not represent a medical or legal document CT ABD & PELV W/[place] ORAL W/[place] [address] COMPLETE:09/10/20 16:30 BEM 4720 Reason(s): s/p colectomy Aug 12, decreasing HGB, leg swelling, renal failure While performing the above CT examination, radiation dose reduction was accomplished utilizing automated exposure control, adjusting of the mA and kV based on the patient's body size and/or the use of imperative reconstructive techniques. CT dose: 4499.4 mGycm Examination dictated by KRISTY Mackey. Examination was reviewed with Vaibhav Bright MD, radiologist at the time of this dictation. Electronically Reviewed and Signed By Vaibhav Bright M.D. , 09/13/20 13:46, [place] Transcribe Initials: DZ , Transcribe Date: 09/11/20 02:13, Dictation Date: Copy for: WILBUR Fonseca via fax Copy for: EMERGENCY DEPT via modem Copy for: 710 MED REC DISCHARGED Page 2 of 2 Name Value Range Interpretation Code Description Data Niru rce(s) Supporting Document(s) ID Date Data Source [id number] 09/13/2020 01:45:00 PM [facility] [address] [place] [address] PHONE: [phone] FAX: [phone] Name .................. : SHANIA REBECCA [facility] Acct Number.................. : [id number] ROOM. ................. : TR-02 MR Number ................... : [id number] Stay type ............. : E/R Discharge Date......... ... : 09/10/20 Admit Date ......... : 09/10/20 Admit Phys .................... : WILBUR GLADYS Date of ....... : 1940 Family Phys ................... : JERI HARD Phone .................. : [phone] Age ................................ : 80 Film# .................. .:[id number] Sex ................................. : M Unsigned transcriptions are preliminary reports and do not represent a medical or legal document CHEST PORTABLE [id number] COMPLETE:09/10/20 19:02 [facility] 47 Reason(s): Shortness of Breath PORTABLE CHEST X-RAY: INDICATION: Shortness of breath. FINDINGS: Diffuse infiltrates are identified bilaterally with pulmonary vascular congesti on suggesting CHF. The cardiac silhouette is prominent. The osseous structures show degenerative change. Atherosclerotic disease is identified. IMPRESSION: CHF. Examination dictated by KRISTY Mackey. Examination was reviewed with Vaibhav Bright MD, radiologist at the time of this dictation. Electronically Reviewed and Signed By Vaibhav Bright M.D. , 09/13/20 13:45, [place] Transcribe Initials: DZ , Transcribe Date: 09/11/20 02:10, Dictation Date: Copy for: WILBUR Fonseca via fax Copy for: EMERGENCY DEPT via [facility] Copy for: 710 MED REC DISCHARGED Page 1 of 1 Name Value Range Interpretation Code Description Data Niru rce(s) Supporting Document(s) ID Date Data Source [id number] 09/13/2020 01:32:00 [place] [address] PHONE: [phone] FAX: [phone] Name .................. : SHANIA Luu Acct Number.................. : [id number] ROOM. ................. : TR- MR Number ................... : [id number] Stay type ............. : E/R Discharge Date......... ... : 09/10/20 Admit Date ......... : 09/10/20 Admit Phys .................... : WILBUR GLADYS Date of ....... : 1940 Family Phys ................... : JERI HARD Phone .................. : [phone] Age ................................ : 80 Film# .................. .:[id number] Sex ................................. : M Unsigned transcriptions are preliminary reports and do not represent a medical or legal document DOPPLER VENOUS BILAT LEG 50584 COMPLETE:09/10/20 21:03 BAW 5912 Reason(s): recent surgery, hx CA, leg swelling, ? DVT BILATERAL LEG VENOUS DUPLEX DOPPLER ULTRASOUND: INDICATION: Swelling, recent surgery, history of cancer. FINDINGS: The study is limited. Unable to visualize the right distal superficial femoral vein and the bilateral calf veins. Limited visualization of the left greater saphenous vein. No thrombus identified in the deep venous system. The visualized vessels are compressible with color flow. IMPRESSION: No visualized DVT bilateral lower extremities. The study is limited with limited visualization of the distal right superficial femoral vein and bilateral calf veins. __ Electronically Reviewed and Signed By Morgan Peralta MD , 09/13/20 13:32, [facility] Transcribe Initials: DARINEL , Transcribe Date: 09/10/20 22:39, Dictation Date: Copy for: WILBUR Fonseca via fax Copy for: EMERGENCY DEPT via modem Copy for: 710 MED REC DISCHARGED Page 1 of 1 Name Value Range Interpretation Code Description Data Niru rce(s) Supporting Document(s) ID Date Data Source [id number] 09/12/2020 09:09:00 AM EST [facility] [address] [address] RESPIRATORY CARE REPORT ==== ---------NAME------- NUMBER SEX AGE ADMIT DISC. XRAY# F/C TYPECOLE REBECCA K [id number] M 80 09/10/20 09/10/20 [id number] MB8 E/R DATE OF : 1940 M/R# [id number] #: [id number] TR-02 LOCATION: EMERGENCY DEPT EKG 54174 COMP LETE:09/11/20 03:09 VMT 78769 PHYSICIAN: WILBUR GRAHAM Name Value Range Interpretation Code Description Data Niru rce(s) Supporting Document(s) ID Date Data Source [id number] 09/10/2020 11:38:00 PM EST [facility] Name Value Range Interpretation Code Description Data Niru rce(s) Supporting Document(s) Microorganism or agent identified in Unspecified speci men Negative for SARS-CoV-2, Influenza A and B virus RNA. [facility] This lab was ordered by [facility] and reported by Department of Pathology and Laboratory Medicine at [facility]. ID Date Data Source [id number] 09/10/2020 05:10:00 PM EST [facility] Name Value Range Interpretation Code Description Data Nriu rce(s) Supporting Document(s) COVID19 Case rprt NOT DETECTED [facility] This lab was ordered by [facility] and reported by [facility]. ID Date Data Source [id number] 09/10/2020 05:32:00 PM EST [facility] NOT DETECTEDNOT DETECTED{ PROC EDURAL CONTROL VALID KIT LOT # _[id number] 09/10/20.1731.DW . KIT EXP DATE _07-26-59 09/10/20.1731.DW . NORMAL RANGE IS NOT DETECTEDNEGATIVE RESULTS SHOULD BE TREATED PRESUMPTIVE AND, IF INCONSISTENT WITHCLINICAL SIGNS AND SYMPTOMS OR NECESSARY FOR PATIENT MANAGEMENT, SHOULD BETESTED WITH DIFFERENT AUTHORIZED OR CLEARED MOLECULAR TESTS. NEGATIVE RESULTSDO NOT PRECLUDE SARS-CoV-2 INFECTION AND SHOULD NOT BE USED THE SOLE BASISFOR PATIENT MANAGEMENT DECISIONS. Name Value Range Interpretation Code Description Data Niru rce(s) Supporting Document(s) ID Date Data Source [id number] 09/14/2020 12:53:00 PM [facility] Name Value Range Interpretation Code Description Data Niru rce(s) Supporting Document(s) CULTURE BLOOD [facility] spital _CULTURE BLOOD_{ PRELIM TEST [place] [address] CLIA# [id number] SEE SCANNED REPORT ID Date Data Source [id number] 09/11/2020 06:14:00 PM [facility] AEROBIC BOTTLE # [id number] BOTTLE #[id number] 665COLLECTED 09/10/20 AT 1648RESULT CALLED TO CHRISTIANNE CALVILLO AT 1815 ON 09/11/20 BY MARIO.RESULTS READ BACK.The [employer] BCID Panel is a qualitative multiplexednucleic acid-based test - PCRNormal results for each test is "Not detected"The BCID panel detects KPC,mecA,[place]/Bresistance,enterococcus,L.monocytogenes,Staphlococcus,S.aureus,St reptococcus,GRP B, GRP A, S.pneumoniae,A.baumanii,Enterobacteriaceae,E.cloacae complex,E.coli,K.oxytoca,K.pneumoniae,Proteus,S.marcescens,H.influenzae,N.mening itidis,P.aeruginosa,C. albicans,C.glabrata ,C.krusei,C.parapsilos is,C.tropicalisTraditional Culture ID and Sensitivities will still beperformed on all positive blood cultures.The [employer] BCID panel may not distinguish mixed cultureswhen two or more species of the same genus or organism groupare present in a specimen.This test is a qualitative test and does not provide aquantitative value for the organism(s)in the sample.Antimicrobial resistance can occur via multiple mechanisms.A Not detected result for the [employer] antimicrobialresistance gene assays does not indicate antimicrobialsusceptibility. Subculturing and standard susceptibilitytesting of isolates is requried to determine antimicrobialsusceptibility.Results from this test must be correlated with the clinicalhistory, epidemiological data,and otherdata available to theclinician evaluating the patient.mecA(meth-resistance gene)Staphylococcus species Name Value Range Interpretation Code Description Data Niru rce(s) Supporting Document(s) ID Date Data Source [id number] 09/14/2020 12:53:00 PM [facility] Name Value Range Interpretation Code Description Data Niru rce(s) Supporting Document(s) CULTURE BLOOD [facility] _CULTURE BLOOD_ TEST [place]FORM [place] [address] CLIA# [id number] SEE SCANNED REPORTG+ COCCI IN CLUSTERS BCID= STAPH SP{ PRELIM CALLED TO MANDA RICHARD 09-11-201829 ID Date Data Source [id number] 09/13/2020 11:36:[address] [facility] Value Range Interpretation Code Description Data [facility] rce(s) Supporting Document(s) Blood group antibodies identified in Serum or Plasma Anti-Jk(a) Meier [facility] XXX blood group Ab [Titer] in Serum or Plasma by Antihuman globulin 2 [facility] If a numerical titer result has been rep orted, please note that thisresult is the reciprocal value of titer results formerly reported as1:2,1:4, 1:8, etc. These results are now reported as 2, 4, 8, etc.The [employer] has recommended this changein titer reporting formats to simply reflect the reciprocal value ofthe titer. ID Date Data Source [id number] 09/10/2020 06:08:00 PM [facility] Name Value Range Interpretation Code Description Data Niru rce(s) Supporting Document(s) Direct antiglobulin test.IgG specific re agent [Interpretation] on Red Blood Cells NEGATIVE NORMAL: NEGATIVE [facility] [place] { DIR BO RE-ENTER NEGATIVE (NORMAL: NEGATIVE ) ID Date Data Source [id number] 09/10/2020 05:56:00 PM EST [facility] Name Value Range Interpretation Code Description Data Niru rce(s) Supporting Document(s) ABO group [Type] in Blood O [facility] Rh [Type] in Blood POSITIVE [facility] AB SCREEN POSITIVE NORMAL: NEGATIVE A [facility] { ABO/RH REENTER O POSITIVE{ AB SCREEN RE-ENTER POSITIVE ID Date Data Source [id number] 09/10/2020 04:42:00 PM EST [facility] Name Value Range Interpretation Code Description Data Niru rce(s) Supporting Document(s) COMPREHENSIVE METABOLIC PANEL [facility] COMPREHENSIVE METABOLIC PANEL Sodium [Moles/volume] in Serum or Plasma 137 mEq/L 134 - 153 [facility] Potassium [Moles/volume] in Serum or Plasma 4.6 mEq/L 3.6 - 5.0 [facility] Chloride [Moles/volume] in Serum or Plasma 105 mEq/L 98 - 107 [facility] Carbon dioxide, total [Moles/volume] in Serum or Plasma 21 MEQ/L 22 - 30 L [facility] Glucose [Mass/volume] in Serum or Plasma 88 MG/DL 70 - 99 [facility] BUN 69 MG/DL 7 - [address] [facility] [place] Creatinine [Mass/volume] in Serum or Plasma 3.2 MG/DL 0.7 - 1.5 H [facility] BUN/CREAT 22 8 - 27 [facility] [place] Protein [Mass/volume] in Serum or Plasma 7.0 G/DL 6.3 - 8.2 [facility] Albumin [Mass/volume] in Serum or Plasma 2.9 G/DL 3.9 - 5.0 L [facility] Globulin [Mass/volume] in Serum by calculation 4.1 GM/DL 2.4 - 3.2 H [facility] A/G RATIO 0.7 0.8 - 2.0 L [facility] Calcium [Mass/volume] in Serum or Plasma 9.3 MG/DL 8.4 - 10.2 [facility] Bilirubin.total [Mass/volume] in Serum or Plasma <0.7 MG/DL 0.2 - 1.3 [facility] Alkaline phosphatase [Enzymatic activity/volume] in Serum or Plasma 250 U/L 38 - 126 H [facility] Aspartate aminotransferase [Enzymatic activity/volume] in Serum or Plasma 19 U/L 5 - 40 [facility] Alanine aminotransferase [Enzymatic activity/volume] in Seru m or Plasma 21 U/L 7 - 56 [facility] Anion gap 3 in Serum or Plasma 11.0 mmol/L 8.0 - 16.0 [facility] AGE 80 yrs [facility] NON-AA GFR 20 mL/min [facility]olo AFR AMER GFR 24 mL/min [facility] Male GFR In terprentation 20-49 yrs >60 mL/min Normal 50-59 yrs >56 mL/min Normal 60-69 yrs >49 mL/min Normal 70-79yrs >42 mL/min Normal 80 and above >35 mL/min Normal Female GFR Interpretation 20-39 yrs >60 mL/min Normal 40-49 yrs >58 mL/min Normal 50-59 yrs >51 mL/min Normal 60-69 yrs >45 mL/min Normal 70-79 yrs >39 mL/min Normal 80 and above >32 mL/min Normal ID Date Data Source [id number] 09/10/2020 04:42:00 PM [facility] Name Value Range Interpretation Code Description Data Niru rce(s) Supporting Document(s) BNP 54901 PG/ML 0 - [address] [facility] [place] ID Date Data Source [id number] 09/10/2020 04:33:[address] [facility] Value Range Interpretation Code Description Data Niru rce(s) Supporting Document(s) Magnesium [Mass/volume] in Serum or Plasma 2.2 MG/DL 1.7 - 2.2 [facility] ID Date Data Source [id number] 09/10/2020 04:27:[address] [facility] Value Range Interpretation Code Description Data Niru rce(s) Supporting Document(s) TROPONIN T 0.04 NG/ML 0.00 - 0.10 [facility] spital TROPONIN T0.1 ng/ml Recommended as the c linical threshold value forTroponin T. ID Date Data Source [id number] 09/10/2020 04:20:00 PM [facility] Name Value Range Interpretation Code Description Data Niru rce(s) Supporting Document(s) Fibrin D-dimer FEU [Mass/volume] in Platelet poor plasma 2.79 ug /mL 0.27 - 0.50 H [facility] ID Date Data Source [id number] 09/10/2020 04:20:00 PM [facility] Name Value Range Interpretation Code Description Data Niru rce(s) Supporting Document(s) Prothrombin time (PT) 15.6 SECONDS 11.0 - 15.5 H [facility] INR in Platelet poor plasma by Coagulation assay 1.18 0.93 - 1. 23 [facility] aPTT in Blood by Coagulation assay 38.2 SECONDS 24.8 - 36.7 H [facility] \\BLDo\\INR INTERPRETATION\\BLDx\\ Therapeutic range for Coumadin and related oral anticoagulants. - International Normalized Ratio (INR): 2.0 - 3.0 for Venous Thrombosis, Pulmonary Embolus, Tissue heart valves, Acute ID Atrial Fibrillation, Valvular heart disease and recurrent Systemic Embolism. - International Normalized Ratio (INR): 2.5 - 3.5 for Mechanical Prosthetic valve. ID Date Data Source [id number] 09/10/2020 04:13:00 PM [facility] Name Value Range Interpretation Code Description Data Niru rce(s) Supporting Document(s) pH of Serum or Plasma 7.28 7.32 - 7.43 L [facility] pCO2 V 45.9 mm/HG 38.0 - 51.0 [facility] pO2 V 36.4 mm/HG 30.0 - 55.0 [facility] Bicarbonate [Moles/volume] in Venous blood 21.0 meq/L 22.0 - 29.0 L [facility] TCO2 V 22.4 meq/L 22.0 - 29.0 [facility] Base excess in Blood by calculation -5.5 -2.0 - 2.0 L [facility] O2 SAT V 59.8 % 40.0 - 85.0 [facility] ital ID Date Data Source [id number] 09/10/2020 04:13:00 PM EST [facility] Name Value Range Interpretation Code Description Data Niru rce(s) Supporting Document(s) Lactate [Moles/volume] in Serum or Plasma 1.2 MMOL/L 0.2 - 2.2 [facility] ID Date Data Source [id number] 09/10/2020 04:12:00 PM EST [facility] Name Value Range Interpretation Code Description Data Niru rce(s) Supporting Document(s) CBC W/AUTOMATED DIFF [facility] COMPLETE BLOOD COUNT Leukocytes [#/volume] in Blood by Automated count 4.3 10^3/uL 4.2 - 1 1.0 [facility] Erythrocytes [#/volume] in Blood by Automated count 2.66 10^6/uL 4. 50 - 6.30 L [facility] Hemoglobin [Mass/volume] in Blood 7.7 g/dL 14.0 - 16.0 L [facility] Hematocrit [Volume Fraction] of Blood by Automated count 24.3 % 4 1.0 - 51.0 L [facility] Erythrocyte mean corpuscular volume [Entitic volume] by Auto mated count 91.4 fL 80.0 - 94.0 [facility] Erythrocyte mean corpuscular hemoglobin [Entitic mass] by Automated count 28.9 pg 27.0 - 34.0 [facility] Erythrocyte mean corpuscular hemoglobin concentration [Mass/volume] by Automated count 31.7 g/dL 31.0 - 36.0 [facility] Erythrocyte distribution width [Ratio] by Automated count 17.3 % 11.5 - 14.8 H [facility] Platelets [#/volume] in Blood by Automated count 102 10^3/uL 150 - 45 0 L [facility] Platelet mean volume [Entitic volume] in Blood by Automated count 9.0 fL 7.4 - 10.4 [facility] Neutrophils/100 leukocytes in Blood by Automated count 76.4 % 37. 0 - 80.0 [facility] Lymphocytes/100 leukocytes in Blood by Manual count 5.5 % 25.0 - 40.0 L [facility] Monocytes/100 leukocytes in Blood by Automated count 10.1 % 3.0 - 8.0 H [facility] Eosinophils/100 leukocytes in Blood by Automated count 7.1 % 0.0 - 7.0 H [facility] Basophils/100 leukocytes in Blood by Automated count 0.2 % 0.0 - 2.0 [facility] %IG 0.7 % 0.0 - 0.[address] [facility] [place] %NRBC 0.0 % 0.0 - 0.0 [facility] al Neutrophils [#/volume] in Blood by Automated count 3.31 10^3/uL 2.00 - 6.90 [facility] Lymphocytes [#/volume] in Blood by Automated count 0.24 10^3/uL 0.60 - 3.40 L [facility] Monocytes [#/volume] in Blood by Automated count 0.44 10^3/uL 0.00 - 0.90 [facility] Eosinophils [#/volume] in Blood by Automated count 0.31 10^3/uL 0.00 - 0.70 [facility] Basophils [#/volume] in Blood by Automated count 0.01 10^3/uL 0.00 - 0.20 [facility] #IG 0.03 10^3/uL 0.00 - 0.10 [facility] H ospital #NRBC 0.00 10^3/uL 0.00 - 0.00 [facility] ospital MANUAL DIFF NOT INDICATED [facility] RBC MORPH NOT INDICATED [facility] spital ID Date Data Source [id number] 09/10/2020 05:07:00 PM EST [facility] Name Value Range Interpretation Code Description Data Niru rce(s) Supporting Document(s) URINALYSIS [facility] [place] URINALYSIS SOURCE R [facility] al COLOR yellow NORMAL: Yellow [facility] ospital CLARITY clear NORMAL: Clear [facility] spital Specific gravity of Urine by Test strip 1.015 1.001 - 1.030 [facility] pH 5 5 - 9 [facility] al Glucose [Mass/volume] in Urine by Test strip NORM NORMAL: Negat ervin [facility] Bilirubin.total [Presence] in Urine by Test strip NEG NORMAL: Negative [facility] Ketones [Presence] in Urine by Test strip NEG NORMAL: Negative [facility] Protein [Mass/volume] in Urine by Test strip 15 NORMAL: Negat ervin [facility] Nitrite [Presence] in Urine by Test strip NEG NORMAL: Negative [facility] BLOOD NEG NORMAL: Negative [facility] Leukocyte esterase [Presence] in Urine by Test strip NEG PAYTON L: Negative [facility] Urobilinogen [Mass/volume] in Urine by Test strip NOR less jimmy n 1.0 mg/dL [facility] MICROSCOPIC Not Indicate [facility] ospital ID Date Data Source [id number] 09/10/2020 01:32:00 PM EST [facility] Name Value Range Interpretation Code Description Data Niru rce(s) Supporting Document(s) COMPREHENSIVE METABOLIC PANEL [facility] COMPREHENSIVE METABOLIC PANEL Sodium [Moles/volume] in Serum or Plasma 135 mEq/L 134 - 153 [facility] Potassium [Moles/volume] in Serum or Plasma 4.3 mEq/L 3.6 - 5.0 [facility] Chloride [Moles/volume] in Serum or Plasma 106 mEq/L 98 - 107 [facility] Carbon dioxide, total [Moles/volume] in Serum or Plasma 20 MEQ/L 22 - 30 L [facility] Glucose [Mass/volume] in Serum or Plasma 178 MG/DL 70 - 99 H [facility] BUN 73 MG/DL 7 - [address] [facility] [place] Creatinine [Mass/volume] in Serum or Plasma 3.0 MG/DL 0.7 - 1.5 H [facility] BUN/CREAT 24 8 - 27 [facility] [place] Protein [Mass/volume] in Serum or Plasma 7.3 G/DL 6.3 - 8.2 [facility] Albumin [Mass/volume] in Serum or Plasma 2.8 G/DL 3.9 - 5.0 L [facility] Globulin [Mass/volume] in Serum by calculation 4.5 GM/DL 2.4 - 3.2 H [facility] A/G RATIO 0.6 0.8 - 2.[address] [facility] al Calcium [Mass/volume] in Serum or Plasma 8.6 MG/DL 8.4 - 10.2 [facility] Bilirubin.total [Mass/volume] in Serum or Plasma <0.7 MG/DL 0.2 - 1.3 [facility] Alkaline phosphatase [Enzymatic activity/volume] in Serum or Plasma 227 U/L 38 - 126 H [facility] Aspartate aminotransferase [Enzymatic activity/volume] in Serum or Plasma 18 U/L 5 - 40 [facility] Alanine aminotransferase [Enzymatic activity/volume] in Seru m or Plasma 19 U/L 7 - 56 [facility] Anion gap 3 in Serum or Plasma 9.0 mmol/L 8.0 - 16.0 [facility] AGE [address] [facility] [place] NON-AA GFR 21 mL/min [facility] [place] AFR AMER GFR 26 mL/min [facility] Male GFR In terprentation 20-49 yrs >60 mL/min Normal 50-59 yrs >56 mL/min Normal 60-69 yrs >49 mL/min Normal 70-79yrs >42 mL/min Normal 80 and above >35 mL/min Normal Female GFR Interpretation 20-39 yrs >60 mL/min Normal 40-49 yrs >58 mL/min Normal 50-59 yrs >51 mL/min Normal 60-69 yrs >45 mL/min Normal 70-79 yrs >39 mL/min Normal 80 and above >32 mL/min Normal ID Date Data Source [id number] 09/10/2020 01:10:00 PM EST [facility] Name Value Range Interpretation Code Description Data Niru rce(s) Supporting Document(s) CBC NO DIFF [facility] [place] [facility] COMPLETE BLOOD COUNT Leukocytes [#/volume] in Blood by Automated count 4.1 10^3/uL 4.2 - 1 1.0 L [facility] Erythrocytes [#/volume] in Blood by Automated count 2.42 10^6/uL 4. 50 - 6.30 L [facility] Hemoglobin [Mass/volume] in Blood 7.0 g/dL 14.0 - 16.0 L [facility] Hematocrit [Volume Fraction] of Blood by Automated count 22.3 % 4 1.0 - 51.0 L [facility] Erythrocyte mean corpuscular volume [Entitic volume] by Auto mated count 92.1 fL 80.0 - 94.0 [facility] Erythrocyte mean corpuscular hemoglobin [Entitic mass] by Automated count 28.9 pg 27.0 - 34.0 [facility] Erythrocyte mean corpuscular hemoglobin concentration [Mass/volume] by Automated count 31.4 g/dL 31.0 - 36.0 [facility] Erythrocyte distribution width [Ratio] by Automated count 17.2 % 11.5 - 14.8 H [facility] Platelets [#/volume] in Blood by Automated count 95 10^3/uL 150 - 450 L [facility] Platelet mean volume [Entitic volume] in Blood by Automated count 9.4 fL 7.4 - 10.4 [facility] ID Date Data Source [id number] 09/09/2020 08:20:00 AM [facility] Name Value Range Interpretation Code Description Data Niru rce(s) Supporting Document(s) Folate [Mass/volume] in Serum or Plasma 8.4 NG/ML 5.6 - 45.8 [facility] ID Date Data Source [id number] 09/09/2020 08:20:[address] [facility] Value Range Interpretation Code Description Data Niru rce(s) Supporting Document(s) Cobalamin (Vitamin B12) [Mass/volume] in Serum or Plasma 766 PG/ML 232 - 1245 [facility] ID Date Data Source [id number] 09/09/2020 08:10:[address] [facility] Value Range Interpretation Code Description Data Niru rce(s) Supporting Document(s) Iron [Mass/volume] in Serum or Plasma 35 UG/DL 42 - 135 L [facility] Iron binding capacity.unsaturated [Mass/volume] in Serum or Plasma 135 UG/DL 112 - 347 [facility] Iron binding capacity [Mass/volume] in Serum or Plasma 170 ug/dL 250 - 450 L [facility] Iron saturation [Mass Fraction] in Serum or Plasma 21 % [facility] ID Date Data Source [id number] 09/09/2020 07:52:[address] [facility] Value Range Interpretation Code Description Data Niru rce(s) Supporting Document(s) CBC NO DIFF [facility]osp ital COMPLETE BLOOD COUNT Leukocytes [#/volume] in Blood by Automated count 4.3 10^3/uL 4.2 - 1 1.0 [facility] Erythrocytes [#/volume] in Blood by Automated count 2.60 10^6/uL 4. 50 - 6.30 L [facility] Hemoglobin [Mass/volume] in Blood 7.5 g/dL 14.0 - 16.0 L [facility] Hematocrit [Volume Fraction] of Blood by Automated count 23.6 % 4 1.0 - 51.0 L [facility] Erythrocyte mean corpuscular volume [Entitic volume] by Auto mated count 90.8 fL 80.0 - 94.0 [facility] Erythrocyte mean corpuscular hemoglobin [Entitic mass] by Automated count 28.8 pg 27.0 - 34.0 [facility] Erythrocyte mean corpuscular hemoglobin concentration [Mass/volume] by Automated count 31.8 g/dL 31.0 - 36.0 [facility] Erythrocyte distribution width [Ratio] by Automated count 17.2 % 11.5 - 14.8 H [facility] Platelets [#/volume] in Blood by Automated count 99 10^3/uL 150 - 450 L [facility] Platelet mean volume [Entitic volume] in Blood by Automated count 9.3 fL 7.4 - 10.4 [facility] ID Date Data Source [id number] 09/08/2020 09:27:00 AM EST [facility] Name Value Range Interpretation Code Description Data Niru rce(s) Supporting Document(s) COMPREHENSIVE METABOLIC PANEL [facility] COMPREHENSIVE METABOLIC PANEL Sodium [Moles/volume] in Serum or Plasma 135 mEq/L 134 - 153 [facility] Potassium [Moles/volume] in Serum or Plasma 4.5 mEq/L 3.6 - 5.0 [facility] Chloride [Moles/volume] in Serum or Plasma 103 mEq/L 98 - 107 [facility] Carbon dioxide, total [Moles/volume] in Serum or Plasma 19 MEQ/L 22 - 30 L [facility] Glucose [Mass/volume] in Serum or Plasma 116 MG/DL 70 - 99 H [facility] BUN 74 MG/DL 7 - [address] [facility] [place] Creatinine [Mass/volume] in Serum or Plasma 3.2 MG/DL 0.7 - 1.5 H [facility] BUN/CREAT 23 8 - 27 [facility] al Protein [Mass/volume] in Serum or Plasma 7.1 G/DL 6.3 - 8.2 [facility] Albumin [Mass/volume] in Serum or Plasma 2.9 G/DL 3.9 - 5.0 L [facility] Globulin [Mass/volume] in Serum by calculation 4.2 GM/DL 2.4 - 3.2 H [facility] A/G RATIO 0.7 0.8 - 2.0 L [facility] Calcium [Mass/volume] in Serum or Plasma 9.1 MG/DL 8.4 - 10.2 [facility] Bilirubin.total [Mass/volume] in Serum or Plasma <0.7 MG/DL 0.2 - 1.3 [facility] Alkaline phosphatase [Enzymatic activity/volume] in Serum or Plasma 243 U/L 38 - 126 H [facility] Aspartate aminotransferase [Enzymatic activity/volume] in Serum or Plasma 28 U/L 5 - 40 [facility] Alanine aminotransferase [Enzymatic activity/volume] in Seru m or Plasma 28 U/L 7 - 56 [facility] Anion gap 3 in Serum or Plasma 13.0 mmol/L 8.0 - 16.0 [facility] AGE [address] [facility] al NON-AA GFR 20 mL/min [facility] [place] AFR AMER GFR 24 mL/min [facility] Male GFR In terprentation 20-49 yrs >60 mL/min Normal 50-59 yrs >56 mL/min Normal 60-69 yrs >49 mL/min Normal 70-79yrs >42 mL/min Normal 80 and above >35 mL/min Normal Female GFR Interpretation 20-39 yrs >60 mL/min Normal 40-49 yrs >58 mL/min Normal 50-59 yrs >51 mL/min Normal 60-69 yrs >45 mL/min Normal 70-79 yrs >39 mL/min Normal 80 and above >32 mL/min Normal ID Date Data Source [id number] 09/08/2020 09:20:00 AM EST [facility] Name Value Range Interpretation Code Description Data Niru rce(s) Supporting Document(s) CBC NO DIFF [facility] COMPLETE BLOOD COUNT Leukocytes [#/volume] in Blood by Automated count 4.5 10^3/uL 4.2 - 1 1.0 [facility] Erythrocytes [#/volume] in Blood by Automated count 2.74 10^6/uL 4. 50 - 6.30 L [facility] Hemoglobin [Mass/volume] in Blood 7.9 g/dL 14.0 - 16.0 L [facility] Hematocrit [Volume Fraction] of Blood by Automated count 25.1 % 4 1.0 - 51.0 L [facility] Erythrocyte mean corpuscular volume [Entitic volume] by Auto mated count 91.6 fL 80.0 - 94.0 [facility] Erythrocyte mean corpuscular hemoglobin [Entitic mass] by Automated count 28.8 pg 27.0 - 34.0 [facility] Erythrocyte mean corpuscular hemoglobin concentration [Mass/volume] by Automated count 31.5 g/dL 31.0 - 36.0 [facility] Erythrocyte distribution width [Ratio] by Automated count 17.0 % 11.5 - 14.8 H [facility] Platelets [#/volume] in Blood by Automated count 102 10^3/uL 150 - 45 0 L [facility] Platelet mean volume [Entitic volume] in Blood by Automated count 9.5 fL 7.4 - 10.4 [facility] ID Date Data Source [id number] 09/11/2020 11:31:00 AM EST [facility] Name Value Range Interpretation Code Description Data Niru rce(s) Supporting Document(s) Campylobacter coli+jejuni+upsaliensis DN A [Presence] in Stool by Target amplification with non-probe based detection Not Detected Not Detected [facility] Clostridium difficile toxin A+B (tcdA+tc dB) genes [Presence] in Stool by Target amplification with non-probe based detection Not Detected Not Detected [facility] Plesiomonas shigelloides DNA [Presence] in Stool by Target amplification with non-probe based detection Not Detected Not Detected [facility] Salmonella enterica+bongori DNA [Presenc e] in Stool by Target amplification with non-probe based detection Not Detected Not Detected [facility] Vibrio cholerae+parahaemolyticus+vulnifi cus DNA [Presence] in Stool by Target amplification with non-probe based detection Not Detected Not Detected [facility] Vibrio cholerae DNA [Presence] in Stool by Target amplification with non-probe based detection Not Detected Not Detected [facility] spital Yersinia enterocolitica DNA [Presence] i n Stool by Target amplification with non-probe based detection Not Detected Not Detected [facility] Escherichia coli enteroaggregative Lory p lasmid aggR+aatA genes [Presence] in Stool by Target amplification with non-probe based detection Not Detected Not Detected [facility] Escherichia coli enteropathogenic eae ge ne [Presence] in Stool by Target amplification with non-probe based detection Not Detected Not Detected [facility] Escherichia coli enterotoxigenic ltA+st1 a+st1b genes [Presence] in Stool by Target amplification with non-probe based detection Not Detected Not Detected [facility] Escherichia coli shiga-like toxin 1+2 (s tx1+stx2) genes [Presence] in Stool by Target amplification with non-probe based detection Not Detected Not Detected [facility] Escherichia coli O157 DNA [Presence] in Stool by Target amplification with non- probe based detection Not applicable Not Detected [facility] Shigella species+EIEC invasion plasmid a ntigen H (ipaH) gene [Presence] in Stool by Target amplification with non-probe based detection Not Detected Not Detected [facility] Cryptosporidium sp DNA [Presence] in Sto ol by Target amplification with non- probe based detection Not Detected Not Detected [facility] Cyclospora cayetanensis DNA [Presence] i n Stool by Target amplification with non-probe based detection Not Detected Not Detected [facility] Entamoeba histolytica DNA [Presence] in Stool by Target amplification with non- probe based detection Not Detected Not Detected [facility] Giardia lamblia DNA [Presence] in Stool by Target amplification with non-probe based detection Not Detected Not Detected [facility] Adenovirus F(40+41) DNA [Presence] in St ool by Target amplification with non- probe based detection Not Detected Not Detected [facility] Astrovirus subtypes 1-8 RNA [Presence] i n Stool by Target amplification with non-probe based detection Not Detected Not Detected [facility] Norovirus genogroup I+II RNA [Presence] in Stool by Target amplification with non-probe based detection Not Detected Not Detected [facility] Rotavirus A RNA [Presence] in Stool by T arget amplification with non-probe based detection Not Detected Not Detected [facility] Sapovirus genogroups I+II+IV+V RNA [Pres ence] in Stool by Target amplification with non-probe based detection Not Detected Not Detected [facility] ID Date Data Source [id number] 09/07/2020 06:55:00 PM [facility] Name Value Range Interpretation Code Description Data Niru rce(s) Supporting Document(s) OCCULT BLOOD POSITIVE NORMAL: NEGATIVE A [facility] OCCULT BLOOD REENTER POSITIVE NORMAL: NEGATIVE A [facility] { HEMOCCULT LOT # [id number] ){ LOT EXP DATE 12-19-21 ){ PROCEDURAL CONTROL POS/NEG VALID ) ID Date Data Source [id number] 09/06/2020 02:53:00 PM EST [facility] Name Value Range Interpretation Code Description Data Niru rce(s) Supporting Document(s) Hemoglobin [Mass/volume] in Blood 7.1 g/dL 14.0 - 16.0 L [facility] Hematocrit [Volume Fraction] of Blood by Automated count 22.1 % 4 1.0 - 51.0 L [facility] ID Date Data Source [id number] 09/06/2020 12:00:00 AM EST [facility] Name Value Range Interpretation Code Description Data Niru rce(s) Supporting Document(s) SARS Not [facility]ed [facility] This lab was ordered by [facility] and reported by 5 CUPS and some sugar Lab [employer] [facility] [employer]. ID Date Data Source [id number] 09/04/2020 04:49:00 PM [facility] Name Value Range Interpretation Code Description Data Niru rce(s) Supporting Document(s) Hemoglobin [Mass/volume] in Blood 7.8 g/dL 14.0 - 16.0 L [facility] Hematocrit [Volume Fraction] of Blood by Automated count 24.4 % 4 1.0 - 51.0 L [facility] ID Date Data Source [id number] 08/31/2020 09:04:00 AM EST [facility] Name Value Range Interpretation Code Description Data Niru rce(s) Supporting Document(s) COMPREHENSIVE METABOLIC PANEL [facility] COMPREHENSIVE METABOLIC PANEL Sodium [Moles/volume] in Serum or Plasma 137 mEq/L 134 - 153 [facility] Potassium [Moles/volume] in Serum or Plasma 4.2 mEq/L 3.6 - 5.0 [facility] Chloride [Moles/volume] in Serum or Plasma 106 mEq/L 98 - 107 [facility] Carbon dioxide, total [Moles/volume] in Serum or Plasma 24 MEQ/L 22 - 30 [facility] Glucose [Mass/volume] in Serum or Plasma 142 MG/DL 70 - 99 H [facility] BUN 83 MG/DL 7 - 21 HH [facility] Hospit [facility] CALL/ READ BACK MARCIE STOKES [address] BY: CONCEPCION [facility] [place] [facility]TIME 2 [facility] al Creatinine [Mass/volume] in Serum or Plasma 3.0 MG/DL 0.7 - 1.5 H [facility] BUN/CREAT 28 8 - [address] [facility] al Protein [Mass/volume] in Serum or Plasma 7.0 G/DL 6.3 - 8.2 [facility] Albumin [Mass/volume] in Serum or Plasma 2.9 G/DL 3.9 - 5.0 L [facility] Globulin [Mass/volume] in Serum by calculation 4.1 GM/DL 2.4 - 3.2 H [facility] A/G RATIO 0.7 0.8 - 2.[address] [facility] al Calcium [Mass/volume] in Serum or Plasma 8.5 MG/DL 8.4 - 10.2 [facility] Bilirubin.total [Mass/volume] in Serum or Plasma <0.7 MG/DL 0.2 - 1.3 [facility] Alkaline phosphatase [Enzymatic activity/volume] in Serum or Plasma 224 U/L 38 - 126 H [facility] Aspartate aminotransferase [Enzymatic activity/volume] in Serum or Plasma 37 U/L 5 - 40 [facility] Alanine aminotransferase [Enzymatic activity/volume] in Seru m or Plasma 31 U/L 7 - 56 [facility] Anion gap 3 in Serum or Plasma 7.0 mmol/L 8.0 - 16.0 L [facility] AGE 80 yrs [facility] Hospit al NON-AA GFR 21 mL/min [facility] paolo AFR AMER GFR 26 mL/min [facility] Male GFR In terprentation 20-49 yrs >60 mL/min Normal 50-59 yrs >56 mL/min Normal 60-69 yrs >49 mL/min Normal 70-79yrs >42 mL/min Normal 80 and above >35 mL/min Normal Female GFR Interpretation 20-39 yrs >60 mL/min Normal 40-49 yrs >58 mL/min Normal 50-59 yrs >51 mL/min Normal 60-69 yrs >45 mL/min Normal 70-79 yrs >39 mL/min Normal 80 and above >32 mL/min Normal ID Date Data Source [id number] 08/31/2020 09:01:[address] [facility] Value Range Interpretation Code Description Data Niru rce(s) Supporting Document(s) Ferritin [Mass/volume] in Serum or Plasma 584.4 ng/mL 5.0 - 244 H [facility] ID Date Data Source [id number] 08/31/2020 09:01:[address] [facility] Value Range Interpretation Code Description Data Niru rce(s) Supporting Document(s) Thyrotropin [Units/volume] in Serum or Plasma by Detec tion limit <= 0.05 mIU/L 5.04 uIU/mL 0.47 - 5.01 H [facility] ID Date Data Source [id number] 08/31/2020 08:57:[address] [facility] Value Range Interpretation Code Description Data Niru rce(s) Supporting Document(s) Thyroxine (T4) free index in Serum or Plasma by calculation 0.97 NG/DL 0.93 - 1.70 [facility] ID Date Data Source [id number] 08/31/2020 08:54:[address] [facility] Value Range Interpretation Code Description Data Niru rce(s) Supporting Document(s) Magnesium [Mass/volume] in Serum or Plasma 2.3 MG/DL 1.7 - 2.2 H [facility] ID Date Data Source [id number] 08/31/2020 08:54:00 AM EST [facility] Name Value Range Interpretation Code Description Data Niru rce(s) Supporting Document(s) Iron [Mass/volume] in Serum or Plasma 34 UG/DL 42 - 135 L [facility] Iron binding capacity.unsaturated [Mass/volume] in Serum or Plasma 160 UG/DL 112 - 347 [facility] Iron binding capacity [Mass/volume] in Serum or Plasma 194 ug/dL 250 - 450 L [facility] Iron saturation [Mass Fraction] in Serum or Plasma 18 % [facility] ID Date Data Source [id number] 08/31/2020 08:53:00 AM [facility] Name Value Range Interpretation Code Description Data Niru rce(s) Supporting Document(s) CVE PANEL [facility] [place] [place] LIPID PANEL Cholesterol [Mass/volume] in Serum or Plasma 148 MG/DL 131 - 200 [facility] Deprecated Triglyceride [Mass/volume] in Serum or Plasma 69 MG/DL 3 5 - 160 [facility] HDL 48 MG/DL 29 - 86 [facility] [place] Cholesterol in LDL [Mass/volume] in Serum or Plasma by Direc t assay 95 mg/dL 65 - 175 [facility] Cholesterol.total/Cholesterol in HDL [Mass Ratio] in Serum o r Plasma 3.1 3.4 - 4.9 L [facility] LDL/HDL 1.98 1.00 - 3.55 [facility] [place] [facility] CVE RISK CHOL/HDL LDL/HDLMEN: 1/2 AVERAGE 3.43 1.00 AVERAGE 4.97 3.55 2X AVERAGE 9.55 6.25 3X AVERAGE 23.99 7.99WOMEN: 1/2 AVERAGE 3.27 1.47 AVERAGE 4.44 3.22 2X AVERAGE 7.05 5.03 3X AVERAGE 11.04 6.14 ID Date Data Source [id number] 08/31/2020 08:21:00 AM EST [facility] Name Value Range Interpretation Code Description Data Niru rce(s) Supporting Document(s) CBC NO DIFF [facility] [place] [facility] COMPLETE BLOOD COUNT Leukocytes [#/volume] in Blood by Automated count 5.0 10^3/uL 4.2 - 1 1.0 [facility] Erythrocytes [#/volume] in Blood by Automated count 2.60 10^6/uL 4. 50 - 6.30 L [facility] Hemoglobin [Mass/volume] in Blood 7.6 g/dL 14.0 - 16.0 L [facility] Hematocrit [Volume Fraction] of Blood by Automated count 24.5 % 4 1.0 - 51.0 L [facility] Erythrocyte mean corpuscular volume [Entitic volume] by Auto mated count 94.2 fL 80.0 - 94.0 H [facility] Erythrocyte mean corpuscular hemoglobin [Entitic mass] by Automated count 29.2 pg 27.0 - 34.0 [facility] Erythrocyte mean corpuscular hemoglobin concentration [Mass/volume] by Automated count 31.0 g/dL 31.0 - 36.0 [facility] Erythrocyte distribution width [Ratio] by Automated count 17.1 % 11.5 - 14.8 H [facility] Platelets [#/volume] in Blood by Automated count 211 10^3/uL 150 - 45 0 [facility] Platelet mean volume [Entitic volume] in Blood by Automated count 9.5 fL 7.4 - 10.4 [facility] ID Date Data Source [id number] 08/31/2020 12:00:00 AM EST [facility] Name Value Range Interpretation Code Description Data Niru rce(s) Supporting Document(s) SARS coronavirus 2 Ag Negative [facility] This lab was ordered by [place] and rep orted by [place]. ID Date Data Source [id number] 08/30/2020 12:00:00 PM [facility] Name Value Range Interpretation Code Description Data Niru rce(s) Supporting Document(s) SARS coronavirus 2 RNA Not Detected [facility] This lab was ordered by [facility] Clyde serna and reported by [facility]. ID Date Data Source [id number] 09/01/2020 03:11:00 PM EST [facility] Name Value Range Interpretation Code Description Data Niru rce(s) Supporting Document(s) SARS-CoV-2, JACE Not Detected Not Detected [facility] This nucleic acid amplification test was developed and its performancecharacteristics determined by [employer]. Nucleic acidamplification tests include RT-PCR and TMA. This test has not beenFDA cleared or approved. This test has been authorized by FDA underan Emergency Use Authorization (EUA). This test is only authorizedfor the duration of time the declaration that circumstances existjustifying the authorization of the emergency use of in vitrodiagnostic tests for detection of SARS-CoV-2 virus and/or diagnosisof COVID-19 infection under section 564(b)(1) of the Act, 21 U.S.C.360bbb-3(b) (1), unless the authorization is terminated or revokedsooner.When diagnostic testing is negative, the possibility of a falsenegative result should be considered in the context of a patient'srecent exposures and the presence of clinical signs and symptomsconsistent with COVID- 19. An individual without symptoms of COVID-19and who is not shedding SARS-CoV-2 virus would expect to have anegative (not detected) result in this assay. ID Date Data Source [id number] 08/29/2020 07:00:00 AM EST [facility] Name Value Range Interpretation Code Description Data Niru rce(s) Supporting Document(s) SARS coronavirus 2 RNA Not Detected [facility] This lab was ordered by [facility] kareem and reported by [employer]. ID Date Data Source [id number] 08/30/2020 07:12:00 AM EST [facility] Name Value Range Interpretation Code Description Data Niru rce(s) Supporting Document(s) SARS-CoV-2, JACE Not Detected Not Detected [facility] This nucleic acid amplification test was developed and its performancecharacteristics determined by [employer]. Nucleic acidamplification tests include RT-PCR and TMA. This test has not beenFDA cleared or approved. This test has been authorized by FDA underan Emergency Use Authorization (EUA). This test is only authorizedfor the duration of time the declaration that circumstances existjustifying the authorization of the emergency use of in vitrodiagnostic tests for detection of SARS-CoV-2 virus and/or diagnosisof COVID-19 infection under section 564(b)(1) of the Act, 21 U.S.C.360bbb-3(b) (1), unless the authorization is terminated or revokedsooner.When diagnostic testing is negative, the possibility of a falsenegative result should be considered in the context of a patient'srecent exposures and the presence of clinical signs and symptomsconsistent with COVID- 19. An individual without symptoms of COVID-19and who is not shedding SARS-CoV-2 virus would expect to have anegative (not detected) result in this assay. ID Date Data Source [id number] 08/25/2020 09:36:00 AM EST [facility] Name Value Range Interpretation Code Description Data Niru rce(s) Supporting Document(s) Microorganism or agent identified in Unspecified speci men Negative for SARS-CoV-2 RNA. [facility] This lab was ordered by [facility] and reported by Department of Pathology and Laboratory Medicine at [facility]. ID Date Data Source [id number] 08/12/2020 03:03:00 AM EST [facility] Name Value Range Interpretation Code Description Data Niru rce(s) Supporting Document(s) Microorganism or agent identified in Unspecified speci men Negative for SARS-CoV-2 RNA. [facility] This lab was ordered by [facility] and reported by Department of Pathology and Laboratory Medicine at [facility]. ID Date Data Source [id number] 08/11/2020 05:27:00 AM EST [facility] ([facility], ) Name Value Range Interpretation Code Description Data Niru rce(s) Supporting Document(s) Creatinine For GFR 2.80 mg/dL 0.70-1.30 Above high normal [facility] ([facility], ) Glucose, Fasting 123 mg/dL 70-100 Above high normal [facility] ([facility], ) Blood Urea Nitrogen 90 mg/dL 7-18 Above high normal [facility] ([facility], ) Glomerular Filtration Rate 23.2 Below low normal [facility] ([facility], ) <content>Units are mL/min/1.73 m2</content>
<content></content>
<content>Chronic Kidney Disease Staging per NKF:</content>
<content></content>
<content>Stage I & II GFR >=60 Normal to Mildly Decreased</content>
<content>Stage III GFR 30-59 Moderately Decreased</content>
<content>Stage IV GFR 15-29 Severely Decreased</content>
<content>Stage V GFR <15 Very Little GFR Left</content>
<content>ESRD GFR <15 on ASTRONOMY DEPARTMENT CHAIR</content>
<content></content> Sodium Level 137 meq/L 136-145 Normal (applies to non-numeric res ults) [facility] ([facility]) Chloride Level 102 meq/L 98-107 Normal (applies to non-numeric r esults) [facility] ([facility]) Carbon Dioxide Level 29 meq/L 21-32 Normal (applies to non-num jessa results) [facility] ([facility]) Potassium Serum 4.2 meq/L 3.5-5.1 Normal (applies to non-numeric results) [facility] ([facility]) Anion Gap 6 meq/L 8-16 Below low [facility] Calcium Level 8.7 mg/dL 8.8-10.2 Below low normal [facility] ID Date Data Source [id number] 08/11/2020 05:27:[address] [facility] ([facility]) Name Value Range Interpretation Code Description Data Niru rce(s) Supporting Document(s) White Blood Count 6.3 10 4.0-10.0 Normal (applies to non-numeri c results) [facility] ([facility]) Hemoglobin 9.2 g/dL 13.5-17.[address] [facility] ( [facility]) Red Blood Count 3.08 10 4.30-6.10 Below low normal [facility] ([facility]) Hematocrit 30.8 % 42.0-52.[address] [facility] ( [facility]) Mean Corpuscular Hemoglobin 29.9 pg 27.0-33.0 Norm al (applies to non-numeric results) [facility] ([facility]) Mean Corpuscular Volume 100.0 fl 80.0-96.0 Above high normal [facility] ([facility]) Mean Corpuscular HGB Conc 29.9 g/dL 32.0-36.5 Below low normal [facility] ([facility]) Red Cell Distribution Width 18.8 % 11.5-14.5 Above high normal [facility] ([facility]) Lymph % 4.1 % 24.0-44.0 Below low normal [facility] ( [facility]) Platelet Count, Automated 101 10 150-450 Below low normal [facility] ([facility]) Neutrophils % 79.4 % 36.0-66.0 Above high normal [facility] ([facility]) Eos % 3.6 % 0.0-3.0 Above high normal [facility] ([facility]) Baso % 0.3 % 0.0-1.0 Normal (applies to non-numeric resul ts) [facility] ([facility]) [place] % 12.0 % 0.0-5.0 Above high normal [facility] ([facility]) Nucleated Red Blood Cell % 0.0 % 0-0 Normal (applies to n on-numeric results) [facility] ([facility]) Immature Granulocyte % 0.6 % 0-3.0 Normal (applies to non-n umeric results) [facility] ([facility]) Neutrophils # 5.0 10 1.5-8.5 Normal (applies to non-numeric re sults) [facility] ([facility]) Lymph # 0.3 10 1.5-5.0 Below low normal [facility] ( [facility]) [place] # 0.8 10 0.0-0.8 Normal (applies to non-numeric resul ts) [facility] ([facility]) Baso # 0.0 10 0.0-0.2 Normal (applies to non-numeric resul ts) [facility] ([facility]) Eos # 0.2 10 0.0-0.5 Normal (applies to non-numeric resul ts) [facility] ([facility]) ID Date Data Source [id number] 08/10/2020 08:05:00 PM [facility] ([facility], ) Name Value Range Interpretation Code Description Data Niru rce(s) Supporting Document(s) Troponin I.cardiac [Mass/volume] in Serum or Plasma 0.03 ng/mL Significant change down [facility] ([facility], ) <content>Troponin I Reference Interval f or Siemens [place] LOCI:</content>
<content></content>
<content>99th Percentile= 0.00-0.045 ng/ml</content>
<content></content>
<content>Risk Stratification:</content>
<content><= 0.10 ng/ml Decreased Risk for Adverse Clinical</content>
<content>Events.</content>
<content>0.10-1.50 ng/ml Increased Risk for Adverse Clinical</content>
<content>Events. Evaluation of additional</content>
<content>criterion and/or repeat testing in 2-6</content>
<content>hours is suggested to rule out myocardial</content>
<content>damage.</content>
<content>>= 1.50 ng/ml Indicative of Myocardial Injury.</content>
<content></content> ID Date Data Source [id number] 08/10/2020 09:23:00 AM [facility] ([facility], ) Name Value Range Interpretation Code Description Data Niru rce(s) Supporting Document(s) CPK Creatine Phosphokinase 42 U/L 39-308 [place] l (applies to non-numeric results) [facility] ([facility], ) Troponin I 0.04 ng/mL Normal (applies to non-numeric resul ts) [facility] ([facility], ) <content>Troponin I Reference Interval f or Siemens [place] LOCI:</content>
<content></content>
<content>99th Percentile= 0.00-0.045 ng/ml</content>
<content></content>
<content>Risk Stratification:</content>
<content><= 0.10 ng/ml Decreased Risk for Adverse Clinical</content>
<content>Events.</content>
<content>0.10-1.50 ng/ml Increased Risk for Adverse Clinical</content>
<content>Events. Evaluation of additional</content>
<content>criterion and/or repeat testing in 2-6</content>
<content>hours is suggested to rule out myocardial</content>
<content>damage.</content>
<content>>= 1.50 ng/ml Indicative of Myocardial Injury.</content>
<content></content> MB/CK Relative Index 2.38 Normal (applies to non-num jessa results) [facility]) <content>DIAGNOSIS CRITERIA</content>
<content>MMB ng/ml Relative Index (RI)</content>
<content>NON-AMI < or = 5 N/A</content>
<content>SORIANO ZONE > 5 < or = 4</content>
<content>AMI > 5 > 4</content>
<content></content> CK-MB Value Mass Laboratory test result Normal ( applies to non-numeric results) [facility] ([facility]) ID Date Data Source [id number] 08/10/2020 04:58:[address] [facility] ([facility]) Name Value Range Interpretation Code Description Data Niru rce(s) Supporting Document(s) Blood Urea Nitrogen 95 mg/dL 7-[address] [facility] ([facility]) Glucose, Fasting 99 mg/dL 70-100 Normal (applies to non-numeric results) [facility] ([facility]) Glomerular Filtration Rate 23.[address] [facility] ([facility]) <content>Units are mL/min/1.73 m2</content>
<content></content>
<content>Chronic Kidney Disease Staging per NKF:</content>
<content></content>
<content>Stage I & II GFR >=60 Normal to Mildly Decreased</content>
<content>Stage III GFR 30- 59 Moderately Decreased</content>
<content>Stage IV GFR 15-29 Severely Decreased</content>
<content>Stage V GFR <15 Very Little GFR Left</content>
<content>ESRD GFR <15 on ASTRONOMY DEPARTMENT CHAIR</content>
<content></content> Creatinine For GFR 2.76 mg/dL 0.70-1.30 Above high normal [facility] ([facility]) Potassium Serum 3.9 meq/L 3.5-5.1 Normal (applies to non-numeric results) [facility] ([facility]) Sodium Level 140 meq/L 136-145 Normal (applies to non-numeric res ults) [facility] ([facility]) Chloride Level 104 meq/L 98-107 Normal (applies to non-numeric r esults) [facility] ([facility]) Carbon Dioxide Level 29 meq/L 21-32 Normal (applies to non-num jessa results) [facility] ([facility]) Anion Gap 7 meq/L 8-[address] [facility] ( [facility]) Calcium Level 8.8 mg/dL 8.8-10.2 Normal (applies to non-numeric re sults) [facility]) ID Date Data Source [id number] 08/10/2020 04:58:[address] [facility] ([facility]) Name Value Range Interpretation Code Description Data Niru rce(s) Supporting Document(s) White Blood Count 4.4 10 4.0-10.0 Normal (applies to non-numeri c results) [facility] ([facility]) Hematocrit 29.2 % 42.0-52.[address] [facility] ( [facility]) Red Blood Count 2.93 10 4.30-6.10 Below low normal [facility] ([facility]) Hemoglobin 8.8 g/dL 13.5-17.5 Below low normal [facility] ( [facility]) Mean Corpuscular Hemoglobin 30.0 pg 27.0-33.0 Norm al (applies to non-numeric results) [facility] ([facility]) Mean Corpuscular Volume 99.7 fl 80.0-96.0 Above high normal [facility] ([facility]) Mean Corpuscular HGB Conc 30.1 g/dL 32.0-36.5 Below low normal [facility] ([facility]) Platelet Count, Automated 112 10 150-450 Below low normal [facility] ([facility]) Red Cell Distribution Width 19.4 % 11.5-14.5 Above high normal [facility] ([facility]) Lymph % 7.9 % 24.0-44.0 Below low normal [facility] ( [facility]) Neutrophils % 71.1 % 36.0-66.0 Above high normal [facility] ([facility]) [place] % 12.4 % 0.0-5.0 Above high normal [facility] ([facility]) Baso % 0.5 % 0.0-1.0 Normal (applies to non-numeric resul ts) [facility] ([facility]) Immature Granulocyte % 0.7 % 0-3.0 Normal (applies to non-n umeric results) [facility] ([facility]) Eos % 7.4 % 0.0-3.0 Above high normal [facility] ([facility]) Lymph # 0.4 10 1.5-5.0 Below low normal [facility] ( [facility]) Neutrophils # 3.2 10 1.5-8.5 Normal (applies to non-numeric re sults) [facility] ([facility]) Nucleated Red Blood Cell % 0.0 % 0-0 Normal (applies to n on-numeric results) [facility] ([facility]) Eos # 0.3 10 0.0-0.5 Normal (applies to non-numeric resul ts) [facility] ([facility]) [place] # 0.6 10 0.0-0.8 Normal (applies to non-numeric resul ts) [facility]) Baso # 0.0 10 0.0-0.2 Normal (applies to non-numeric resul ts) [facility] ([facility]) ID Date Data Source [id number] 08/09/2020 03:56:[address] [facility] ([facility]) Name Value Range Interpretation Code Description Data Niru rce(s) Supporting Document(s) Blood group antibodies identified in Serum or Plasma Laboratory test result Normal (applies to non-numeric results) [facility] ([facility]) Anti-Jka ID Date Data Source [id number] 08/09/2020 03:56:00 PM [facility] ([facility]) Name Value Range Interpretation Code Description Data Niru rce(s) Supporting Document(s) Blood Type Laboratory test result Normal (applies to non-n umeric results) [facility] ([facility]) Blood group antibody screen [Presence] in Serum or Juan sma Laboratory test result Normal (applies to non-numeric results) [facility] ([facility]) ID Date Data Source [id number] 08/09/2020 03:56:00 PM [facility] ([facility]) Name Value Range Interpretation Code Description Data Niru rce(s) Supporting Document(s) Packed Cells Laboratory test result [facility] ([facility]) TRANSFUSED PRODUCT: PACKED CELLS COUNT: 1 ID Date Data Source [id number] 08/09/2020 04:29:00 AM [facility] ([facility]) Name Value Range Interpretation Code Description Data Niru rce(s) Supporting Document(s) Glucose, Fasting 112 mg/dL 70-100 Above high normal [facility] Blood Urea Nitrogen 108 mg/dL 7-[address] [facility] ([facility]) Creatinine For GFR 3.01 mg/dL 0.70-1.[address] [facility] ([facility]) Glomerular Filtration Rate 21.[address] [facility] ([facility]) <content>Units are mL/min/1.73 m2</content>
<content></content>
<content>Chronic Kidney Disease Staging per NKF:</content>
<content></content>
<content>Stage I & II GFR >=60 Normal to Mildly Decreased</content>
<content>Stage III GFR 30- 59 Moderately Decreased</content>
<content>Stage IV GFR 15-29 Severely Decreased</content>
<content>Stage V GFR <15 Very Little GFR Left</content>
<content>ESRD GFR <15 on ASTRONOMY DEPARTMENT CHAIR</content>
<content></content> Sodium Level 141 meq/L 136-145 Normal (applies to non-numeric res ults) [facility] ([facility]) Potassium Serum 3.9 meq/L 3.5-5.1 Normal (applies to non-numeric results) [facility] ([facility]) Anion Gap 8 meq/L 8-16 Normal (applies to non-numeric resul ts) [facility] ([facility]) Carbon Dioxide Level 28 meq/L 21-32 Normal (applies to non-num jessa results) [facility] ([facility]) Chloride Level 105 meq/L 98-107 Normal (applies to non-numeric r esults) [facility] ([facility]) Calcium Level 8.5 mg/dL 8.8-10.2 Below low [facility] ID Date Data Source [id number] 08/09/2020 04:29:[address] [facility] ([facility]) Name Value Range Interpretation Code Description Data Niru rce(s) Supporting Document(s) White Blood Count 4.5 10 4.0-10.0 Normal (applies to non-numeri c results) [facility] ([facility]) Red Blood Count 2.82 10 4.30-6.10 Below low normal [facility] ([facility]) Hemoglobin 8.3 g/dL 13.5-17.[address] [facility] ( [facility]) Mean Corpuscular Volume 101.4 fl 80.0-96.[address] [facility] ([facility]) Hematocrit 28.6 % 42.0-52.0 Below low normal [facility] ( [facility]) Red Cell Distribution Width 19.8 % 11.5-14.5 Above high normal [facility] ([facility]) Mean Corpuscular HGB Conc 29.0 g/dL 32.0-36.5 Below low normal [facility] ([facility]) Mean Corpuscular Hemoglobin 29.4 pg 27.0-33.0 Norm al (applies to non-numeric results) [facility] ([facility]) Neutrophils % 73.6 % 36.0-66.0 Above high normal [facility] ([facility]) Platelet Count, Automated 106 10 150-450 Below low normal [facility] ([facility]) Lymph % 8.1 % 24.0-44.0 Below low normal [facility] ( [facility]) [place] % 9.6 % 0.0-5.0 Above high normal [facility] ([facility]) Eos % 7.6 % 0.0-3.0 Above high normal [facility] ([facility]) Baso % 0.2 % 0.0-1.0 Normal (applies to non-numeric resul ts) [facility] ([facility]) Immature Granulocyte % 0.9 % 0-3.0 Normal (applies to non-n umeric results) [facility] ([facility]) Nucleated Red Blood Cell % 0.0 % 0-0 Normal (applies to n on-numeric results) [facility] ([facility]) Neutrophils # 3.3 10 1.5-8.5 Normal (applies to non-numeric re sults) [facility] ([facility]) [place] # 0.4 10 0.0-0.8 Normal (applies to non-numeric resul ts) [facility] ([facility]) Eos # 0.3 10 0.0-0.5 Normal (applies to non-numeric resul ts) [facility] ([facility]) Lymph # 0.4 10 1.5-5.0 Below low normal [facility] ( [facility]) Baso # 0.0 10 0.0-0.2 Normal (applies to non-numeric resul ts) [facility] ([facility]) ID Date Data Source [id number] 08/08/2020 05:38:00 AM EST [facility] ([facility]) Name Value Range Interpretation Code Description Data Niru rce(s) Supporting Document(s) Blood Urea Nitrogen 119 mg/dL 7-18 Above high normal [facility] ([facility]) Glucose, Fasting 108 mg/dL 70-100 Above high normal [facility] ([facility]) Creatinine For GFR 3.38 mg/dL 0.70-1.30 Above high normal [facility] ([facility]) Sodium Level 138 meq/L 136-145 Normal (applies to non-numeric res ults) [facility]) Glomerular Filtration Rate 18.[address] [facility] ([facility]) <content>Units are mL/min/1.73 m2</content>
<content></content>
<content>Chronic Kidney Disease Staging per NKF:</content>
<content></content>
<content>Stage I & II GFR >=60 Normal to Mildly Decreased</content>
<content>Stage III GFR 30- 59 Moderately Decreased</content>
<content>Stage IV GFR 15-29 Severely Decreased</content>
<content>Stage V GFR <15 Very Little GFR Left</content>
<content>ESRD GFR <15 on ASTRONOMY DEPARTMENT CHAIR</content>
<content></content> Potassium Serum 3.4 meq/L 3.5-5.1 Below low normal [facility] ([facility]) Carbon Dioxide Level 29 meq/L 21-32 Normal (applies to non-num jessa results) [facility] ([facility]) Chloride Level 101 meq/L 98-107 Normal (applies to non-numeric r esults) [facility] ([facility]) Calcium Level 8.8 mg/dL 8.8-10.2 Normal (applies to non-numeric re sults) [facility] ([facility]) Anion Gap 8 meq/L 8-16 Normal (applies to non-numeric resul ts) [facility] ([facility]) ID Date Data Source [id number] 08/08/2020 05:38:00 AM EST [facility] ([facility]) Name Value Range Interpretation Code Description Data Niru rce(s) Supporting Document(s) White Blood Count 4.4 10 4.0-10.0 Normal (applies to non-numeri c results) [facility] ([facility]) Red Blood Count 2.88 10 4.30-6.10 Below low normal [facility] ([facility]) Hematocrit 28.7 % 42.0-52.0 Below low normal [facility] ( [facility]) Hemoglobin 8.7 g/dL 13.5-17.5 Below low normal [facility] ( [facility]) Mean Corpuscular HGB Conc 30.3 g/dL 32.0-36.5 Below low normal [facility] ([facility]) Mean Corpuscular Volume 99.7 fl 80.0-96.0 Above high normal [facility] ([facility]) Mean Corpuscular Hemoglobin 30.2 pg 27.0-33.0 Norm al (applies to non-numeric results) [facility] ([facility]) Neutrophils % 71.9 % 36.0-66.0 Above high normal [facility] ([facility]) Platelet Count, Automated 108 10 150-450 Below low normal [facility] ([facility]) Red Cell Distribution Width 19.9 % 11.5-14.5 Above high normal [facility] ([facility]) Lymph % 8.7 % 24.0-44.0 Below low normal [facility] ( [facility]) [place] % 10.7 % 0.0-5.0 Above high normal [facility] ([facility]) Baso % 0.5 % 0.0-1.0 Normal (applies to non-numeric resul ts) [facility] ([facility]) Eos % 7.5 % 0.0-3.0 Above high normal [facility] ([facility]) Nucleated Red Blood Cell % 0.0 % 0-0 Normal (applies to n on-numeric results) [facility] ([facility]) Immature Granulocyte % 0.7 % 0-3.0 Normal (applies to non-n umeric results) [facility] ([facility]) Neutrophils # 3.2 10 1.5-8.5 Normal (applies to non-numeric re sults) [facility] ([facility]) [place] # 0.5 10 0.0-0.8 Normal (applies to non-numeric resul ts) [facility] ([facility]) Lymph # 0.4 10 1.5-5.[address] [facility] ( [facility]) Baso # 0.0 10 0.0-0.2 Normal (applies to non-numeric resul ts) [facility]) Eos # 0.3 10 0.0-0.5 Normal (applies to non-numeric resul ts) [facility] ([facility]) ID Date Data Source [id number] 08/07/2020 06:39:[address] [facility] ([facility]) Name Value Range Interpretation Code Description Data Niru rce(s) Supporting Document(s) Packed Cells Laboratory test result [facility] ([facility]) TRANSFUSED PRODUCT: PACKED CELLS COUNT: 1 ID Date Data Source [id number] 08/07/2020 06:39:[address] [facility] ([facility]) Name Value Range Interpretation Code Description Data Niru rce(s) Supporting Document(s) Blood Type Laboratory test result Normal (applies to non-n umeric results) [facility]) Blood group antibody screen [Presence] in Serum or Juan sma Laboratory test result Normal (applies to non-numeric results) [facility] ([facility]) ID Date Data Source [id number] 08/07/2020 06:39:00 AM EST [facility]) Name Value Range Interpretation Code Description Data Niru rce(s) Supporting Document(s) Blood group antibodies identified in Serum or Plasma Laboratory test result Normal (applies to non-numeric results) [facility] ([facility], ) Anti-Jka ID Date Data Source [id number] 08/07/2020 04:56:00 AM EST [facility] ([facility]) Name Value Range Interpretation Code Description Data Niru rce(s) Supporting Document(s) Hemoglobin 8.0 g/dL 13.5-17.5 Below low normal [facility] ( [facility]) Red Blood Count 2.65 10 4.30-6.10 Below low normal [facility] ([facility]) White Blood Count 3.8 10 4.0-10.0 Below low normal [facility] ([facility]) Mean Corpuscular Volume 98.5 fl 80.0-96.0 Above high normal [facility] ([facility]) Hematocrit 26.1 % 42.0-52.0 Below low normal [facility] Mean Corpuscular HGB Conc 30.7 g/dL 32.0-36.5 Below low normal [facility] ([facility]) Mean Corpuscular Hemoglobin 30.2 pg 27.0-33.0 Norm al (applies to non-numeric results) [facility] ([facility]) Red Cell Distribution Width 19.9 % 11.5-14.5 Above high normal [facility] ([facility]) Lymph % 9.9 % 24.0-44.0 Below low normal [facility] Platelet Count, Automated 106 10 150-450 Below low normal [facility] ([facility]) Neutrophils % 71.0 % 36.0-66.0 Above high normal [facility] ([facility]) Eos % 6.0 % 0.0-3.0 Above high normal [facility] ([facility]) Baso % 0.3 % 0.0-1.0 Normal (applies to non-numeric resul ts) [facility] ([facility]) [place] % 12.3 % 0.0-5.0 Above high normal [facility] ([facility]) Immature Granulocyte % 0.5 % 0-3.0 Normal (applies to non-n umeric results) [facility] ([facility]) Neutrophils # 2.7 10 1.5-8.5 Normal (applies to non-numeric re sults) [facility] ([facility]) Nucleated Red Blood Cell % 0.0 % 0-0 Normal (applies to n on-numeric results) [facility] ([facility]) Lymph # 0.4 10 1.5-5.0 Below low normal [facility] [place] # 0.5 10 0.0-0.8 Normal (applies to non-numeric resul ts) [facility] ([facility]) Eos # 0.2 10 0.0-0.5 Normal (applies to non-numeric resul ts) [facility] ([facility]) Baso # 0.0 10 0.0-0.2 Normal (applies to non-numeric resul ts) [facility] ([facility]) ID Date Data Source [id number] 08/07/2020 04:56:00 AM EST [facility] ([facility]) Name Value Range Interpretation Code Description Data Niru rce(s) Supporting Document(s) Glucose, Fasting 112 mg/dL 70-100 Above high normal [facility] ([facility]) Blood Urea Nitrogen 130 mg/dL 7-[address] [facility] ([facility]) Creatinine For GFR 3.65 mg/dL 0.70-1.[address] [facility] ([facility]) Glomerular Filtration Rate 17.[address] [facility] ([facility]) <content>Units are mL/min/1.73 m2</content>
<content></content>
<content>Chronic Kidney Disease Staging per NKF:</content>
<content></content>
<content>Stage I & II GFR >=60 Normal to Mildly Decreased</content>
<content>Stage III GFR 30- 59 Moderately Decreased</content>
<content>Stage IV GFR 15-29 Severely Decreased</content>
<content>Stage V GFR <15 Very Little GFR Left</content>
<content>ESRD GFR <15 on ASTRONOMY DEPARTMENT CHAIR</content>
<content></content> Sodium Level 137 meq/L 136-145 Normal (applies to non-numeric res ults) [facility] ([facility]) Potassium Serum 3.4 meq/L 3.5-5.1 Below low normal [facility] ([facility]) Carbon Dioxide Level 29 meq/L 21-32 Normal (applies to non-num jessa results) [facility] ([facility]) Anion Gap 9 meq/L 8-16 Normal (applies to non-numeric resul ts) [facility] ([facility]) Chloride Level 99 meq/L 98-107 Normal (applies to non-numeric r esults) [facility] ([facility]) Calcium Level 8.3 mg/dL 8.8-10.2 Below low normal [facility] ([facility]) ID Date Data Source [id number] 08/06/2020 02:07:00 PM EST [facility] ([facility]) Name Value Range Interpretation Code Description Data Niru rce(s) Supporting Document(s) Glucose, Fasting 157 mg/dL 70-100 Above high normal [facility] ([facility]) Creatinine For GFR 3.93 mg/dL 0.70-1.[address] [facility] ([facility]) Blood Urea Nitrogen 135 mg/dL 7-[address] [facility] ([facility]) Glomerular Filtration Rate 15.7 Below low normal [facility] ([facility]) <content>Units are mL/min/1.73 m2</content>
<content></content>
<content>Chronic Kidney Disease Staging per NKF:</content>
<content></content>
<content>Stage I & II GFR >=60 Normal to Mildly Decreased</content>
<content>Stage III GFR 30- 59 Moderately Decreased</content>
<content>Stage IV GFR 15-29 Severely Decreased</content>
<content>Stage V GFR <15 Very Little GFR Left</content>
<content>ESRD GFR <15 on ASTRONOMY DEPARTMENT CHAIR</content>
<content></content> Sodium Level 136 meq/L 136-145 Normal (applies to non-numeric res ults) [facility] ([facility]) Potassium Serum 3.1 meq/L 3.5-5.1 Below low normal [facility] ([facility]) Chloride Level 96 meq/L 98-107 Below low normal [facility] ([facility]) Anion Gap 7 meq/L 8-16 Below low normal [facility] ( [facility]) Carbon Dioxide Level 33 meq/L 21-32 Above high normal [facility] ([facility]) Calcium Level 8.7 mg/dL 8.8-10.2 Below low normal [facility] ([facility]) Albumin 2.8 GM/DL 3.2-5.2 Below low normal [facility] ( [facility]) Phosphorus Level 4.6 mg/dL 2.5-4.9 Normal (applies to non-numeric results) [facility] ([facility]) ID Date Data Source [id number] 08/06/2020 04:30:00 AM EST [facility] ([facility]) Name Value Range Interpretation Code Description Data Niru rce(s) Supporting Document(s) Blood Urea Nitrogen 143 mg/dL 7-18 Above high normal [facility] ([facility]) Glucose, Fasting 109 mg/dL 70-100 Above high normal [facility] ([facility]) Creatinine For GFR 3.74 mg/dL 0.70-1.30 Above high normal [facility] ([facility]) Glomerular Filtration Rate 16.6 Below low normal [facility] ([facility]) <content>Units are mL/min/1.73 m2</content>
<content></content>
<content>Chronic Kidney Disease Staging per NKF:</content>
<content></content>
<content>Stage I & II GFR >=60 Normal to Mildly Decreased</content>
<content>Stage III GFR 30- 59 Moderately Decreased</content>
<content>Stage IV GFR 15-29 Severely Decreased</content>
<content>Stage V GFR <15 Very Little GFR Left</content>
<content>ESRD GFR <15 on ASTRONOMY DEPARTMENT CHAIR</content>
<content></content> Sodium Level 137 meq/L 136-145 Normal (applies to non-numeric res ults) [facility] ([facility]) Chloride Level 98 meq/L 98-107 Normal (applies to non-numeric r esults) [facility] ([facility]) Potassium Serum 2.9 meq/L 3.5-5.1 Below lower panic limits [facility] ([facility]) Anion Gap 8 meq/L 8-16 Normal (applies to non-numeric resul ts) [facility] ([facility]) Carbon Dioxide Level 31 meq/L 21-32 Normal (applies to non-num jessa results) [facility] ([facility]) Calcium Level 8.5 mg/dL 8.8-10.2 Below low normal [facility] ([facility]) ID Date Data Source [id number] 08/06/2020 04:30:[address] [facility] ([facility]) Name Value Range Interpretation Code Description Data Niru rce(s) Supporting Document(s) Prothrombin Time 16.0 s 12.5-14.3 Above high normal [facility] ([facility]) Inr 1.25 Normal (applies to non-numeric resul ts) [facility]) THERAPUTIC HUMAN INR VALUES INDICATIONS NORMAL RANGES PROPHYLAXIS/TREATMENT OF: VENOUS THROMBOSIS 2.0-3.0 PULMONARY EMBOLISM 2.0-3.0 PREVENTION OF SYSTEMIC EMBOLISM FROM: TISSUE HEART VALVES 2.0-3.0 ACUTE MYOCARDIAL INFARCTION 2.0-3.0 VALVULAR HEART DISEASE 2.0-3.0 ATRIAL FIBRILLATION 2.0-3.0 MECHANICAL VALVES(HIGH RISK) 2.5-3.5 RECURRENT MYOCARDIAL INFARCTION 2.5-3.5 Partial Thromboplastin Time 33.0 s 24.2-38.5 Norm al (applies to non-numeric results) [facility] ([facility]) ID Date Data Source [id number] 08/06/2020 04:30:00 AM EST [facility] ([facility]) Name Value Range Interpretation Code Description Data Niru rce(s) Supporting Document(s) Hemoglobin 7.1 g/dL 13.5-17.5 Below low normal [facility] ( [facility]) White Blood Count 3.9 10 4.0-10.0 Below low normal [facility] ([facility]) Red Blood Count 2.34 10 4.30-6.10 Below low normal [facility] ([facility]) Mean Corpuscular Volume 102.1 fl 80.0-96.0 Above high normal [facility] ([facility]) Hematocrit 23.9 % 42.0-52.0 Below low normal [facility] ( [facility]) Mean Corpuscular Hemoglobin 30.3 pg 27.0-33.0 Norm al (applies to non-numeric results) [facility] ([facility]) Mean Corpuscular HGB Conc 29.7 g/dL 32.0-36.5 Below low normal [facility] ([facility]) Platelet Count, Automated 100 10 150-450 Below low normal [facility] ([facility]) Red Cell Distribution Width 19.1 % 11.5-14.5 Above high normal [facility] ([facility]) Neutrophils % 75.0 % 36.0-66.0 Above high normal [facility] ([facility]) Lymph % 8.4 % 24.0-44.0 Below low normal [facility] ( [facility]) Eos % 3.8 % 0.0-3.0 Above high normal [facility] ([facility]) Baso % 0.5 % 0.0-1.0 Normal (applies to non-numeric resul ts) [facility] ([facility]) [place] % 12.0 % 0.0-5.0 Above high normal [facility] ([facility]) Nucleated Red Blood Cell % 0.0 % 0-0 Normal (applies to n on-numeric results) [facility] ([facility]) Immature Granulocyte % 0.3 % 0-3.0 Normal (applies to non-n umeric results) [facility] ([facility]) Neutrophils # 3.0 10 1.5-8.5 Normal (applies to non-numeric re sults) [facility]) [place] # 0.5 10 0.0-0.8 Normal (applies to non-numeric resul ts) [facility] ([facility]) Lymph # 0.3 10 1.5-5.0 Below low normal [facility] Baso # 0.0 10 0.0-0.2 Normal (applies to non-numeric resul ts) [facility] ([facility]) Eos # 0.2 10 0.0-0.5 Normal (applies to non-numeric resul ts) [facility] ([facility]) ID Date Data Source [id number] 08/05/2020 03:11:00 PM EST [facility]) Name Value Range Interpretation Code Description Data Niru rce(s) Supporting Document(s) Blood group antibodies identified in Serum or Plasma Laboratory test result Normal (applies to non-numeric results) [facility] ([facility]) Anti-Jka ID Date Data Source [id number] 08/05/2020 03:11:00 PM EST [facility]) Name Value Range Interpretation Code Description Data Niru rce(s) Supporting Document(s) Blood group antibody screen [Presence] in Serum or Juan sma Laboratory test result Normal (applies to non-numeric results) [facility] ([facility]) Blood Type Laboratory test result Normal (applies to non-n umeric results) [facility] ([facility]) ID Date Data Source [id number] 08/05/2020 03:11:00 PM EST [facility]) Name Value Range Interpretation Code Description Data Niru rce(s) Supporting Document(s) Blood Urea Nitrogen 139 mg/dL 7-18 Above high normal [facility] ([facility]) Glucose, Fasting 123 mg/dL 70-100 Above high [facility] Sodium Level 138 meq/L 136-145 Normal (applies to non-numeric res ults) [facility] ([facility], ) Glomerular Filtration Rate 15.5 Below low normal [facility] ([facility], ) <content>Units are mL/min/1.73 m2</content>
<content></content>
<content>Chronic Kidney Disease Staging per NKF:</content>
<content></content>
<content>Stage I & II GFR >=60 Normal to Mildly Decreased</content>
<content>Stage III GFR 30- 59 Moderately Decreased</content>
<content>Stage IV GFR 15-29 Severely Decreased</content>
<content>Stage V GFR <15 Very Little GFR Left</content>
<content>ESRD GFR <15 on ASTRONOMY DEPARTMENT CHAIR</content>
<content></content> Creatinine For GFR 3.97 mg/dL 0.70-1.30 Above high normal [facility] ([facility], ) Chloride Level 98 meq/L 98-107 Normal (applies to non-numeric r esults) [facility] ([facility], ) Potassium Serum 3.2 meq/L 3.5-5.1 Below low normal [facility] ([facility], ) Anion Gap 11 meq/L 8-16 Normal (applies to non-numeric resul ts) [facility] ([facility], ) Carbon Dioxide Level 29 meq/L 21-32 Normal (applies to non-num jessa results) [facility] ([facility], ) Calcium Level 8.3 mg/dL 8.8-10.2 Below low normal [facility] ([facility], ) Alt/SGPT 11 U/L 12-78 Below low normal [facility] ( [facility], ) Ast/Sgot 13 U/L 7-37 Normal (applies to non-numeric resul ts) [facility] ([facility], ) Total Protein 7.2 GM/DL 6.4-8.2 Normal (applies to non-numeric re sults) [facility] ([facility], ) Bilirubin,Total 0.4 mg/dL 0.2-1.0 Normal (applies to non-numeric results) [facility]) Alkaline Phosphatase 85 U/L 45-117 Normal (applies to non-num jessa results) [facility] ([facility]) Albumin 3.0 GM/DL 3.2-5.[address] [facility] ( [facility]) Albumin/Globulin Ratio 0.7 Normal (applies to non-n umeric results) [facility]) ID Date Data Source [id number] 08/05/2020 03:11:00 PM [facility] ([facility]) Name Value Range Interpretation Code Description Data Niru rce(s) Supporting Document(s) Platelets reticulated/100 platelets in Blood by Automated count 1.1 % 0.0-10.91 Normal (applies to non-numeric results) [facility]) LAB DRAW ID Date Data Source [id number] 08/05/2020 03:11:00 PM [facility] ([facility]) Name Value Range Interpretation Code Description Data Niru rce(s) Supporting Document(s) White Blood Count 3.7 10 4.0-10.0 Below low normal [facility]) Hematocrit 24.6 % 42.0-52.[address] [facility] ( [facility]) Hemoglobin 7.0 g/dL 13.5-17.[address] [facility] ( [facility]) Red Blood Count 2.24 10 4.30-6.10 Below low normal [facility] ([facility]) Mean Corpuscular Hemoglobin 31.3 pg 27.0-33.0 Norm al (applies to non-numeric results) [facility] ([facility]) Mean Corpuscular Volume 109.8 fl 80.0-96.[address] [facility] ([facility]) Mean Corpuscular HGB Conc 28.5 g/dL 32.0-36.[address] [facility] ([facility]) Red Cell Distribution Width 18.7 % 11.5-14.[address] [facility] ([facility]) Platelet Count, Automated 94 10 150-450 Below low normal [facility] ([facility]) Nucleated Red Blood Cell % 0.0 % 0-0 Normal (applies to n on-numeric results) [facility] ([facility]) ID Date Data Source [id number] 08/05/2020 02:56:00 PM EST [facility] ([facility]) Name Value Range Interpretation Code Description Data Niru rce(s) Supporting Document(s) Packed Cells Laboratory test result [facility] ([facility]) TRANSFUSED PRODUCT: PACKED CELLS COUNT: 2 ID Date Data Source [id number] 08/05/2020 12:54:00 PM EST [facility] ([facility]) Name Value Range Interpretation Code Description Data Niru rce(s) Supporting Document(s) Surgical pathology study Laboratory test result [facility] ([facility]) FINAL DIAGNOSIS Colon, 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 -4/TR 08/06/2020 - 1224 CLINICAL DIAGNOSIS Anemia 08/05/2020 - 150 GROSS DIAGNOSIS Received in formalin labeled "biopsy at 65 cm" consists of two fragments of leon tissue measuring 0.5 x 0.3 x 0.2 cm in aggregate. All in one. -SV 08/05/2020 - 150 Signed RICARDA CHRISTINA MD 08/06/2020 1238 ID Date Data Source [id number] 07/31/2020 10:30:00 AM EST [facility] Name Value Range Interpretation Code Description Data Niru rce(s) Supporting Document(s) SARS coronavirus 2 RNA Not Detected [facility] [place] This lab was ordered by [facility] and reported by [facility]. ID Date Data Source [id number] 07/27/2020 01:00:00 PM EST [facility] Name Value Range Interpretation Code Description Data Niru rce(s) Supporting Document(s) SARS coronavirus 2 RNA [Presence] in Res piratory specimen by JACE with probe detection [facility] This lab was ordered by [facility] a nd reported by [facility]. ID Date Data Source TSH 06/02/2020 02:27:05 AM EST eCW1 ([facility]) Name Value Range Interpretation Code Description Data Niru rce(s) Supporting Document(s) 1.940 THYROID STIMULATING HORMONE eC W1 ([facility]) ID Date Data Source Comprehensive Metabolic Profile (CMP) 06/02/2020 02:27:05 AM EST eCW1 ([facility]) Name Value Range Interpretation Code Description Data Niru rce(s) Supporting Document(s) 132 GLUCOSE, FASTING eCW1 ([facility]) 91 BLOOD UREA NITROGEN eCW1 ([facility]) 3.28 CREATININE FOR GFR eCW1 ([facility]) 19.4 GLOMERULAR FILTRATION RATE eCW 1 ([facility]) 138 SODIUM LEVEL eCW1 ([facility]) 3.8 POTASSIUM SERUM eCW1 ([facility]) 99 CHLORIDE LEVEL eCW1 ([facility]) 31 CARBON DIOXIDE LEVEL eCW1 ([facility]) 20 AST/SGOT eCW1 ([facility]) 8.7 CALCIUM LEVEL eCW1 ([facility]) 83 ALKALINE PHOSPHATASE eCW1 ([facility]) 18 ALT/SGPT eCW1 ([facility]) 0.4 BILIRUBIN,TOTAL eCW1 ([facility]) 3.0 ALBUMIN eCW1 ([facility]) 7.9 TOTAL PROTEIN eCW1 ([facility]) 0.6 ALBUMIN/GLOBULIN RATIO eCW1 ([facility]) ID Date Data Source CBC with Differential 06/02/2020 02:27:05 AM EST eCW1 ([facility]) Name Value Range Interpretation Code Description Data Niru rce(s) Supporting Document(s) 4.4 WHITE BLOOD COUNT eCW1 ([facility]) 2.43 RED BLOOD COUNT eCW1 ([facility]) 7.2 HEMOGLOBIN eCW1 ([facility]) 25.3 HEMATOCRIT eCW1 ([facility]) 29.6 MEAN CORPUSCULAR HEMOGLOBIN eC W1 ([facility]) 104.1 MEAN CORPUSCULAR VOLUME eCW1 ( [facility]) 28.5 MEAN CORPUSCULAR HGB CONC eCW1 ([facility]) 15.9 RED CELL DISTRIBUTION WIDTH eC W1 ([facility]) 75.7 NEUTROPHILS % eCW1 ([facility]) 125 PLATELET COUNT, AUTOMATED eCW1 ([facility]) 9.8 MONO % eCW1 ([facility]) 7.1 LYMPH % eCW1 ([facility]) 0.5 BASO % eCW1 ([facility]) 3.3 NEUTROPHILS # eCW1 ([facility]) 6.2 EOS % eCW1 ([facility]) 0.3 LYMPH # eCW1 ([facility]) 0.4 MONO # eCW1 ([facility]) 0.3 EOS # eCW1 ([facility]) 0.0 BASO # eCW1 ([facility]) ID Date Data Source [id number] 04/24/2020 04:06:03 PM EDT [facility] Name Value Range Interpretation Code Description Data Niru rce(s) Supporting Document(s) &PDF [facility] FUAULl8kSiEWOrOq28/VTRidHONgz9AqUUhfDFu8AMwqAAOsG2XrfOhiULXGNPQyK2WAIFDEUQgmGHNj [facility] [file] M0yG7ZagCSIAbuvxr6b9Ddbpk/iWQ8NmrphrdcvJDWkViJE4mMJMGi3T8QOzT7BDKAAJrDyhRor+Inés+ [file] AgICAgICAgICAgICAgICAgICAgICAgICAgICAgICAgICAgICAgICAgICAgICAgICAgICAgICAgICAgDQ ogICAgICAgICAgICAgICAgICAgICAgICAgICAgICAg ICAgICAgICAgICAgICAgICAgICAgICAgICAgICAgICAgICAgICAgICAgICAgICAgICAgICAgICAgICAg ICAgICAgICAgDQogICAgICAgICAgICAgICAgICAgICAgICAgICAgICAgICAgICAgICAgICAgICAgICAg ICAgICAgICAgICAgICAgICAgICAgICAgICAgICAgIC AgICAgICAgICAgICAgICAgICAgDQogICAgICAgICAgICAgICAgICAgICAgICAgICAgICAgICAgICAgIC AgICAgICAgICAgICAgICAgICAgICAgICAgICAgICAgICAgICAgICAgICAgICAgICAgICAgICAgICAgIC AgDQogICAgICAgICAgICAgICAgICAgICAgICAgICAg ICAgICAgICAgICAgICAgICAgICAgICAgICAgICAgICAgICAgICAgICAgICAgICAgICAgICAgICAgICAg ICAgICAgICAgICAgDQogICAgICAgICAgICAgICAgICAgICAgICAgICAgICAgICAgICAgICAgICAgICAg ICAgICAgICAgICAgICAgICAgICAgICAgICAgICAgIC AgICAgICAgICAgICAgICAgICAgICAgDQogICAgICAgICAgICAgICAgICAgICAgICAgICAgICAgICAgIC AgICAgICAgICAgICAgICAgICAgICAgICAgICAgICAgICAgICAgICAgICAgICAgICAgICAgICAgICAgIC AgICAgDQogICAgICAgICAgICAgICAgICAgICAgICAg ICAgICAgICAgICAgICAgICAgICAgICAgICAgICAgICAgICAgICAgICAgICAgICAgICAgICAgICAgICAg ICAgICAgICAgICAgICAgDQogICAgICAgICAgICAgICAgICAgICAgICAgICAgICAgICAgICAgICAgICAg ICAgICAgICAgICAgICAgICAgICAgICAgICAgICAgIC AgICAgICAgICAgICAgICAgICAgICAgICAgDQogICAgICAgICAgICAgICAgICAgICAgICAgICAgICAgIC AgICAgICAgICAgICAgICAgICAgICAgICAgICAgICAgICAgICAgICAgICAgICAgICAgICAgICAgICAgIC JzHWBuRQOlBHp2Q8soAOHlLIZnEU6dYDu3Yh0+DQoN IzSaWAU2zfRozN3BQB3qj3YhKIouTBHsn3MmXFo8UO3HZEQiRKpwVA2QVYtxti5ZISBeRZIouFYAv6tb VsKvNPF7MFXnQzahMQ5AKUGfS0ghvmJuXBTlFSCIXVglULESAJ6YZyIiI1PupI52JXTSLg2+DQplbmRv NfxUEjE8BYCvq6NlPAk3QI6VEYToRTckNR3MKYOpmP 6vQMklTS4JDyZqABHqFLDRMhQmY75ivSXrSVx4M7MbMkKtJWRsHgzzFZRsNLedFuZpZLAnGvZrFSdvXX 4+ID4+HWdyDY2KNMlssvFsAHDgTe3HMSKgJZP7WLXygMVpOzJzPDOEHFzzGM2InLRvMBT2uV9sTBhhGU SzKAQuN6qETsVlcMrgFP66fWtixwFplBEmMQf+Pg0K OS6xw3UtGFc8esBfUScwWKO7TAbbAKUtZRFtZZStITJ5SKV7MLGTJeUgGTUeTNMfRPslYXYuPCNhyi5L JNWyFJLtZXQcIxYfIWNpSTXgONrtEKGmBMP8VPm0YJLsYBBgXX2UGwCyQCZjMBCgQDOfUPSpKKEydp3Q MDAwMDAwMzYyNiAwMDAwMCBuDQowMDAwMDAzODMwID UzPEGjZR3HZxTmLOVwRTU9HiejXVHjTBZzvi2PRREaSJTeOrn8IUYtHNZuGTGcRBuxNGOuWWM2KbOqGY LcKAUyKW8VGrIjHADwCIn4RAWgVTSfIIKjer7TPJZzMUIgGUZ3FrCxILAaTUWfJPwiIGMtLFO4FLF4OR QmIIHjIF0DXfTlBWVsDHhfTvfpMNBqWPIzoi2DNGPu CMYgTDRgJeIaPSIrFJIlDVcuVGOkOXQ0JuurFAJxIKNcWA0YQvGzXXNaBJM4CNrjAGTtRVKnud2HCJYo YHYhVTddGIHgOLOqSCYtOQhcZYRkKCX3XLUyLSSvKEKtDS2LEaJnYRIcDFVuLHbmZKHcUAVazb4QGCTn ZYRnYkK9QVMrCWWzBHDsGTfoOMVzNQF7VuA7QKSdFK WjGW9AHaPrHWIhZDK6BPskAYQnDXDcut4ADTKgWDIiLzE3WeZyNWQbIEMkSStcHJAyGZT6YlAbODHeBJ DpEZ2YJnPoRAEaFwE4YQdnAPUpAZAtfn1TKOFrMBOlVbF3GNUrFRFyTHCiMYk2yqQziPLdDKg7RJ8XU8 YqlnUbRnlDTq4Tm482ZSD7VVVeBu7CV7roMy3kABGy MQCAPg0HIDu3YXFhCUJbDIZ9AGLlXqitOnTpNHC0ZTlsZIE6WLqgDzP+UYhiVPQtXGSbDrtoYBJ3MQWq WTJjUOh5S0HcIeVeWAC1TC8zGBRPCo0+QLkeoNGfoGzvSWSNZoS6Dkr2NEwqZNKVFj6C Procedure Social History Code Duration Value Status Description Data Source(s ) Smoking 04/26/2021 12:00:00 AM EDT Former Smoker completed Former Smoker eCW1 ([facility]) Smoking 03/17/2021 12:00:00 AM EDT Former Smoker completed Former Smoker eCW1 ([facility]) Smoking 03/17/2021 12:00:00 AM EDT Former Smoker completed Former Smoker eCW1 ([facility]) Smoking 03/17/2021 12:00:00 AM EDT Former Smoker completed Former Smoker eCW1 ([facility]) Smoking 03/17/2021 12:00:00 AM EDT Former Smoker completed Former Smoker eCW1 ([facility]) Smoking 12/30/2020 12:00:00 AM EDT Former Smoker completed Former Smoker eCW1 ([facility]) Smoking 12/30/2020 12:00:00 AM EDT Former Smoker completed Former Smoker eCW1 ([facility]) Smoking 12/30/2020 12:00:00 AM EDT Former Smoker completed Former Smoker eCW1 ([facility]) Smoking 12/14/2020 12:00:00 AM EDT Former Smoker completed Former Smoker eCW1 ([facility]) Smoking 11/04/2020 12:00:00 AM EDT Former Smoker completed Former Smoker eCW1 ([facility]) Smoking 11/04/2020 12:00:00 AM EDT Former Smoker completed Former Smoker eCW1 ([facility]) Smoking 11/04/2020 12:00:00 AM EDT Former Smoker completed Former Smoker eCW1 ([facility]) Alcohol intake 09/08/2020 12:00:00 AM EST Not Currently completed [facility] Smoking 09/08/2020 12:00:00 AM EST Former smoker completed Former smoker [facility] Smoking 07/28/2020 12:00:00 AM EST Former Smoker completed Former Smoker eCW1 ([facility]) Smoking 07/28/2020 12:00:00 AM EST Former Smoker completed Former Smoker eCW1 ([facility]) Smoking 07/28/2020 12:00:00 AM EST Former Smoker completed Former Smoker eCW1 ([facility]) Smoking 07/28/2020 12:00:00 AM EST Former Smoker completed Former Smoker eCW1 ([facility]) Smoking 07/28/2020 12:00:00 AM EST Former Smoker completed Former Smoker eCW1 ([facility]) Smoking 06/22/2020 12:00:00 AM EST Former Smoker completed Former Smoker eCW1 ([facility]) Smoking 06/22/2020 12:00:00 AM EST Former Smoker completed Former Smoker eCW1 ([facility]) Smoking 06/22/2020 12:00:00 AM EST Former Smoker completed Former Smoker eCW1 ([facility]) Smoking 06/22/2020 12:00:00 AM EST Former Smoker completed Former Smoker eCW1 ([facility]) Smoking 05/25/2020 12:00:00 AM EST Former Smoker completed Former Smoker eCW1 ([facility]) Smoking 05/25/2020 12:00:00 AM EST Former Smoker completed Former Smoker eCW1 ([facility]) Smoking 05/25/2020 12:00:00 AM EST Former Smoker completed Former Smoker eCW1 ([facility]) Smoking 05/25/2020 12:00:00 AM EST Former Smoker completed Former Smoker eCW1 ([facility]) Smoking 04/19/2020 02:23:42 PM EDT Ex-smoker (finding) complet ed Ex-smoker (finding) NAHOMI ([facility]) Smoking 03/18/2020 02:10:37 PM EDT Ex-smoker (finding) complet ed Ex-smoker (finding) NAHOMI ([facility]) Vital Signs ID Date Data Source UNK Name Value Range Interpretation Code Description Data Source(s) Systolic blood pressure 100 mm[Hg] 100 mm[Hg] M [facility]ENT ([facility]) Diastolic blood pressure 56 mm[Hg] 56 mm[Hg] [facility] ([facility]) Body temperature 98.4 [degF] 98.4 [degF] [facility] ([facility]) Body height 69 [in_i] 69 [in_i] [facility] ([facility]) 5'9" Body weight 271.00 [lb_av] 271.00 [facility]av[facility] stated Body mass index (BMI) [Ratio] 40.0 kg/m2 40.0 k g/m2 [facility] ([facility]) Shock body weight 160 [lb_av] 160 [lb_av] [facility] T ([facility]) Body weight 122.[address] [facility] ([facility]) Body surface area Derived from formula 2.[address] [facility] ([facility]) Body weight 277.6 [lb_av] 277.6 [lb_av] eCW1 ([facility]) Body height 70 [in_i] 70 [in_i] eCW1 ([facility]) Body mass index (BMI) [Ratio] 39.83 kg/m2 39.83 kg/m2 eCW1 ([facility]) Heart rate 99 /min 99 /min eCW1 ([facility]) Respiratory rate 17 /min 17 /min eCW1 ([facility]) Body temperature 99.0 [degF] 99.0 [degF] eCW1 ( [facility]) Systolic blood pressure 96 mm[Hg] 96 mm[Hg] e CW1 ([facility]) Diastolic blood pressure 52 mm[Hg] 52 mm[Hg] eCW1 ([facility]) Body mass index (BMI) [Ratio] 38.8 kg/m2 38.8 k g/m2 [facility] ([facility]) Systolic blood pressure 80 mm[Hg] 80 mm[Hg] M EDENT ([facility]) Diastolic blood pressure 50 mm[Hg] 50 mm[Hg] [facility] ([facility]) Systolic blood pressure 80 mm[Hg] 80 mm[Hg] M [facility]ENT ([facility]) Diastolic blood pressure 50 mm[Hg] 50 mm[Hg] [facility] ([facility]) Body temperature 98.0 [degF] 98.0 [degF] [facility] ([facility]) Body height 68 [in_i] 68 [in_i] [facility] ([facility] 5'8" Body weight 255.00 [lb_av] 255.00 [lb_av] [facility] T ([facility]) Body weight 115.668 kg 115.668 kg [facility] ([facility]) Body weight 258.44 [lb_av] 258.44 [lb_av] [facility] T ([facility]) Heart rate 75 /min 75 /min [facility] ([facility] Body weight 117.226 kg 117.226 kg [facility] ([facility]) Oxygen saturation in Arterial blood by Pulse oximetry 95 % 95 % [facility] ([facility]) Body mass index (BMI) [Ratio] 37.1 kg/m2 37.1 k g/m2 [facility] ([facility]) Body temperature 98.1 [degF] 98.1 [degF] [facility] ([facility]) Body height 70 [in_i] 70 [in_i] [facility] ([facility] 5'10" Body weight 259 [lb_av] 259 [lb_av] eCW1 ([facility]) Body height 70 [in_i] 70 [in_i] eCW1 ([facility]) Body mass index (BMI) [Ratio] 37.16 kg/m2 37.16 kg/m2 eCW1 ([facility]) Heart rate 84 /min 84 /min eCW1 ([facility]) Respiratory rate 17 /min 17 /min eCW1 ([facility]) Body temperature 98.1 [degF] 98.1 [degF] eCW1 ( [facility]) Systolic blood pressure 90 mm[Hg] 90 mm[Hg] e CW1 ([facility]) Diastolic blood pressure 51 mm[Hg] 51 mm[Hg] eCW1 ([facility]) Body weight kg eCW1 ([facility]) Body weight 255 [lb_av] 255 [lb_av] eCW1 ([facility]) Body height 70 [in_i] 70 [in_i] eCW1 ([facility]) Body mass index (BMI) [Ratio] 36.58 kg/m2 36.58 kg/m2 eCW1 ([facility]) Heart rate 64 /min 64 /min eCW1 ([facility]) Respiratory rate 20 /min 20 /min eCW1 ([facility]) Body temperature 98.2 [degF] 98.2 [degF] eCW1 ( [facility]) Systolic blood pressure 120 mm[Hg] 120 mm[Hg] e CW1 ([facility]) Diastolic blood pressure 57 mm[Hg] 57 mm[Hg] eCW1 ([facility]) Diastolic blood pressure 50 mm[Hg] 50 mm[Hg] eCW1 ([facility]) Body weight 255 [lb_av] 255 [lb_av] eCW1 ([facility]) Body height 70 [in_i] 70 [in_i] eCW1 ([facility]) Body mass index (BMI) [Ratio] 36.58 kg/m2 36.58 kg/m2 eCW1 ([facility]) Heart rate 81 /min 81 /min eCW1 ([facility]) Respiratory rate 18 /min 18 /min eCW1 ([facility]) Body temperature 97.9 [degF] 97.9 [degF] eCW1 ( [facility]) Systolic blood pressure 103 mm[Hg] 103 mm[Hg] e CW1 ([facility]) Systolic blood pressure 141 mm[Hg] 141 mm[Hg] [facility] Diastolic blood pressure 82 mm[Hg] 82 mm[Hg] [facility] Heart rate 117 /min 117 /min [facility] Body height 177.8 cm 177.8 cm [facility] Body weight 132.45 kg 132.45 kg [facility] Body mass index (BMI) [Ratio] 41.90 kg/m2 41.90 kg/m2 [facility] Oxygen saturation in Arterial blood by Pulse oximetry 97 % 97 % [facility] Body weight 321 [lb_av] 321 [lb_av] eCW1 ([facility]) Body height 70 [in_i] 70 [in_i] eCW1 ([facility]) Body mass index (BMI) [Ratio] 46.05 kg/m2 46.05 kg/m2 W1 ([facility]) Heart rate 77 /min 77 /min eCW1 ([facility]) Respiratory rate 20 /min 20 /min eCW1 ([facility]) Body temperature 98.5 [degF] 98.5 [degF] eCW1 ( [facility]) Systolic blood pressure 126 mm[Hg] 126 mm[Hg] e CW1 ([facility]) Diastolic blood pressure 64 mm[Hg] 64 mm[Hg] eCW1 ([facility]) Body height 69 [in_i] 69 [in_i] RAFIQ ([facility], ) 5'9" Body weight 325.00 [lb_av] 325.00 [lb_av] MED[facility] T ([facility], ) Body mass index (BMI) [Ratio] 48.0 kg/m2 48.0 k g/m2 RAFIQ ([facility], ) Shock body weight 160 [lb_av] 160 [lb_av] [facility] T ([facility], ) Body weight 147.[address] [facility] ([facility], ) Body surface area Derived from formula 2.[address] [facility] ([facility] ) Systolic blood pressure 108 mm[Hg] 108 mm[Hg] M EDENT ([facility]) Diastolic blood pressure 56 mm[Hg] 56 mm[Hg] [facility] ([facility]) Heart rate 76 /min 76 /min [facility] ([facility]) Body height 69 [in_i] 69 [in_i] [facility] ([facility]) 5'9" Body weight 325.00 [lb_av] 325.00 [lb_av] [facility] T ([facility]) Body mass index (BMI) [Ratio] 48.0 kg/m2 48.0 k g/m2 [facility] ([facility]) Shock body weight 160 [lb_av] 160 [lb_av] [facility] T ([facility]) Body weight 147.[address] [facility] ([facility]) Body surface area Derived from formula 2.[address] [facility] ([facility]) Body weight 300.00 [lb_av] 300.00 [lb_av] [facility] T ([facility]) Stated Body weight 136.[address] [facility] ([facility]) Body surface area Derived from formula 2.[address] [facility] ([facility]) Shock body weight 160 [lb_av] 160 [lb_av] [facility] T ([facility]) Body mass index (BMI) [Ratio] 44.3 kg/m2 44.3 k g/m2 [facility] ([facility]) Systolic blood pressure 139 mm[Hg] 139 mm[Hg] M EDENT ([facility]) Diastolic blood pressure 69 mm[Hg] 69 mm[Hg] [facility] ([facility]) Body height 69 [in_i] 69 [in_i] [facility] ([facility]) 5'9" Body weight 327.8 [lb_av] 327.8 [lb_av] eCW1 ([facility]) Body height 70 [in_i] 70 [in_i] eCW1 ([facility]) Body mass index (BMI) [Ratio] 47.03 kg/m2 47.03 kg/m2 eCW1 ([facility]) Heart rate 111 /min 111 /min eCW1 ([facility]) Respiratory rate 20 /min 20 /min eCW1 ([facility]) Body temperature 97.6 [degF] 97.6 [degF] eCW1 ( [facility]) Systolic blood pressure 129 mm[Hg] 129 mm[Hg] e CW1 ([facility]) Diastolic blood pressure 63 mm[Hg] 63 mm[Hg] eCW1 ([facility]) Body weight 331 [lb_av] 331 [lb_av] eCW1 ([facility]) Body height [in_i] eCW1 ([facility]) Body mass index (BMI) [Ratio] 47.49 kg/m2 47.49 kg/m2 eCW1 ([facility]) Heart rate 83 /min 83 /min eCW1 ([facility]) Respiratory rate 19 /min 19 /min eCW1 ([facility]) Body temperature 97.9 [degF] 97.9 [degF] eCW1 ( [facility]) Systolic blood pressure 130 mm[Hg] 130 mm[Hg] e CW1 ([facility]) Diastolic blood pressure 83 mm[Hg] 83 mm[Hg] eCW1 ([facility]) Body weight 304 [lb_av] 304 [lb_av] eCW1 ([facility]) Body height [in_i] eCW1 ([facility]) Body mass index (BMI) [Ratio] 43.61 kg/m2 43.61 kg/m2 eCW1 ([facility]) Heart rate 95 /min 95 /min eCW1 ([facility]) Respiratory rate 18 /min 18 /min eCW1 ([facility]) Body temperature 98.7 [degF] 98.7 [degF] eCW1 ( [facility]) Systolic blood pressure 153 mm[Hg] 153 mm[Hg] e CW1 ([facility]) Diastolic blood pressure 50 mm[Hg] 50 mm[Hg] eCW1 ([facility]) ID Date Data Source [id number] 08/11/2020 03:05:37 PM [facility] Name Value Range Interpretation Code Description Data Source(s) TRANSFER FROM [facility] Patient Treatment Plan of Care Planned Activity Planned Date Details Description Data Source (s) Metoprolol Succinate 25 MG 02/01/2021 12:00:00 AM EDT eCW1 ([facility]) Metoprolol Succinate 25 MG 02/01/2021 12:00:00 AM EDT eCW1 ([facility]) May Have - 10/20/2020 12:00:00 AM EDT e CW1 ([facility]) Metolazone 2.5 MG Oral Tablet 09/08/2020 12:00:00 AM EST [facility] Furosemide 20 MG Oral Tablet 09/08/2020 12:00:00 AM EST [facility] Metoprolol Tartrate 25 MG Oral Tablet 09/08/2020 12:00:00 AM EST [facility] Tamsulosin hydrochloride 0.4 MG Oral Capsule 07/04/2020 12:00:00 AM EST eCW1 ([facility]) Tamsulosin hydrochloride 0.4 MG Oral Capsule 07/04/2020 12:00:00 AM EST eCW1 ([facility]) apixaban 5 MG Oral Tablet 02/18/2020 12:00:00 AM EDT [facility] 24 HR Glipizide 2.5 MG Extended Release Oral Tablet 12/22/19 12:00:00 AM EDT [facility] Finasteride 5 MG Oral Tablet 05/23/2019 12:00:00 AM EDT [facility] Multiple Vitamins-Minerals (ICAPS) CAPS 06/20/2016 12:00:00 AM EST [facility] torsemide 100 MG Oral Tablet [facility] 24 HR metoprolol succinate 100 MG Extended Release Oral Tablet [facility] Metolazone 2.5 MG Oral Tablet [facility] Lovastatin 20 MG Oral Tablet [facility] Lisinopril 2.5 MG Oral Tablet [facility] Calcium Carb-Cholecalciferol (CALCIUM 1000 + D) 1000-800 MG-UNIT TA BS [facility]
[2021-05-10] MEDS ORDERED: LIDOCAINE 1% MDV 20ML VIAL As Ordered ONE (07:09)
[2021-05-10] MEDS ORDERED: BUPIVACAINE/EPIN 0.5% 30 ML VIAL As Ordered ONE (07:09)
[2021-05-10] MEDS ORDERED: LIDOCAINE 2% 100MG/5ML SDV (FOR ANES.) As Ordered ONE (07:21)
[2021-05-10] MEDS ORDERED: MIDAZOLAM INJ 2MG/2ML VIAL (J2250 PER 1MG) As Ordered ONE (07:21)
[2021-05-10] MEDS ORDERED: propofoL 200 MG/20 ML VIAL As Ordered ONE (07:21)
[2021-05-10] MEDS ORDERED: fentaNYL 100 MCG/2 ML INJECTION (J3010) As Ordered ONE (07:21)
[2021-05-10] MEDS ORDERED: NS 1,000 ML IV SCH (07:40)
[2021-05-10] MEDS ORDERED: ceFAZolin SOD 1 GM in D5W MINI-BAG PLUS 50 ML IV ONE (08:00)
[2021-05-10] MEDS ORDERED: propofoL 500 MG/50 ML VIAL As Ordered ONE ×3 (08:02→09:52)
[2021-05-10] MEDS ORDERED: ceFAZolin 1GM VIAL (J0690 PER 500MG) As Ordered ONE (08:05)
[2021-05-10] MEDS ORDERED: PHENYLEPHRINE 10MG/ML 1ML VIAL (J2370 PER 1) As Ordered ONE (08:29)
[2021-05-10] MEDS ORDERED: PHENYLephrine 500MCG 5ML (100MCG/ML) SYRINGE As Ordered ONE (08:29)
[2021-05-10] MEDS ORDERED: HEPARIN SOD (PORCINE) 5000UNITS/ML 1ML VIAL/SYRINGE As Ordered ONE (09:24)
[2021-05-10] MEDS ORDERED: THROMBIN SOLN 5,000 UNITS VIAL As Ordered ONE (09:39)
--- NOTE | 2021-05-10 11:09 | ROOPDOC ---
[facility] Report Of Operation Report of Operation DATE OF PROCEDURE: 05/10/21 PREPROCEDURE DIAGNOSES: Renal failure POSTPROCEDURE DIAGNOSES: Renal failure PROCEDURE PERFORMED: Right arm Brachio-Cephalic AV fistula creation SURGEON: Ginny Ventura MD ANESTHESIA: MAC and local ESTIMATED BLOOD LOSS: Approximately 20 mL. COMPLICATIONS: None REMARKS: Palpable radial pulse and thrill in fistula FINDINGS: Good size cephalic vein and brachial artery SPECIMENS REMOVED: None DESCRIPTION OF PROCEDURE: The patient was brought to the operating room and placed on the operating room table in supine position. After adequate anesthesia was was induced, the patients right arm was then prepped and draped in standard surgical fashion. A linear incision was made with a 15-blade scalpel in between the brachial artery and the cephalic vein; which were identified and marked under ultrasound guidance just proximal to the antecubital fossa. Dissection through subcutaneous tissue was performed using electrocautery. The cephalic vein was identified and dissected free from its surrounding tissues. Several branches were tied with 3-0 silk suture and ligated. A long segment of cephalic vein was freed. Attention was then made towards the brachial artery. The fascia was encountered and incised with Metzenbaum scissors. The neurovascular bundle was encountered and a 3 cm length of the brachial artery was isolated and encircled with silastic vessel loops proximally and distally. Patient was administered a bolus of 3000 units of IV heparin. The length of the cephalic vein was isolated and ligated distally at the level of the antecubital fossa using 2-0 silk suture. An arteriotomy was created with an 11-blade scalpel and extended with Holt scissors on the brachial artery. The end of the cephalic vein was trimmed for appropriate length and an end-to-side anastomosis was created with two 6-0 Prolene sutures. Local intra-arterial heparinization was administered for this segment of the procedure. Upon release of the silastic loops, prograde flow into the brachial artery was permitted, with good hemostasis. A good palpable thrill was noted along the length of the fistula. There was also a good palpable radial pulse. The wound was irrigated and then closed in layers using 2-0 and 4-0 Vicryl sutures. The skin closed using running 4-0 Monocryl. Dermabond, sterile dressings and an HELEN wrap were then applied. The patient tolerated the procedure well and was transferred to recovery room in stable condition. GINNY VENTURA MD May 10, 2021 11:09
[2021-05-10 11:35] VITALS: BP 119/63
== END 2021-05-10 11:35 | disposition home or self-care (01) ==
LOC: M SDC 06:21
PROVIDERS: ATTEND Surgery Vascular Surgery
DX: N17.9 Acute kidney failure, unspecified (principal); N18.4 Chronic kidney disease, stage 4 (severe); I12.9 Hypertensive chronic kidney disease with stage 1 through stage 4 chronic kidney disease, or unspecified chronic kidney disease; E11.22 Type 2 diabetes mellitus with diabetic chronic kidney disease; I48.91 Unspecified atrial fibrillation; E78.00 Pure hypercholesterolemia, unspecified; I27.81 Cor pulmonale (chronic); R60.0 Localized edema; Z85.46 Personal history of malignant neoplasm of prostate; Z90.49 Acquired absence of other specified parts of digestive tract; Z79.899 Other long term (current) drug therapy; Z79.82 Long term (current) use of aspirin; Z87.891 Personal history of nicotine dependence; Z91.013 Allergy to seafood
CPT/HCPCS: 36415; 36821; 84132; J0690; J1644; J2250; J2370; J3010

== ENCOUNTER → 2021-06-23 | Outpatient (CLI) | payer OTHER ==
[~2021-06-23] MED LIST changes: -LR 1,000 ML IV ONE; +POTA-151 PO; -POTA20TA6 PO
[2021-06-23 16:29] LABS: CALCIUM LEVEL 9.1 MG/DL (8.8-10.2); CHOLESTEROL RISK RATIO 2.566 (<5); CREATININE FOR GFR 7.67 MG/DL (0.70-1.30); GLOMERULAR FILTRATION RATE 7.2 (>35); POTASSIUM SERUM 3.8 MEQ/L (3.5-5.1)
[2021-06-23 18:13] LABS: HEMOGLOBIN A1c 5.3 %
== END ==
LOC: M WUC 14:09
PROVIDERS: ATTEND Family Medicine
DX: E11.22 Type 2 diabetes mellitus with diabetic chronic kidney disease (principal); E78.5 Hyperlipidemia, unspecified

== ENCOUNTER → 2021-06-23 | Outpatient (CLI) | payer OTHER ==
[~2021-06-23] MED LIST changes: -POTA-151 PO; +POTA20TA6 PO
--- NOTE | 2021-06-24 08:37 | REP ---
INDICATION: RENAL FAILURE UNSPECIFIED COMPARISON: None. TECHNIQUE: Real-time sonographic evaluation of a recently placed arteriovenous fistula with Doppler FINDINGS: Inflow vessel brachial artery: 2 cm from the anastomosis the diameter is 5.9 mm at 13 mm deep. The peak systolic velocity is 242 centimeters/second with a flow volume of 1.54 liters/minute. At the anastomosis the opening is 4.5 mm with a flow velocity of 319 centimeters/second. Outflow vessel cephalic vein: 2-3 cm from the anastomosis the diameter is 8.3 mm at 5.1 mm deep. The peak systolic velocity is 285 centimeters/second with a flow volume of 3.25 liters/minute. 5-6 cm from the anastomosis the diameter is 9.4 mm at 5.4 mm deep with a peak systolic velocity of 180 centimeters/second and a flow volume of 2.33 liters/minute. 8-10 cm from the anastomosis the diameter is 9.4 mm at 5.4 mm deep. The peak systolic velocity is 180 centimeters/second with a flow volume of 1.01 liters/minute. The distal radial arterial waveform is triphasic with a peak systolic velocity of 34 centimeters/second. The distal ulnar arterial waveform is triphasic with a peak systolic velocity of 39 centimeters/second. Approximately 5 cm from the AV fistula there appears to be echogenic material on a valve in the cephalic vein versus valvular thickening. The echogenic material could represent a forming thrombus. 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 IMPRESSION: As above <Electronically signed by Dorian Miranda > 06/24/21 [id number]
== END ==
LOC: M RAD 11:27
PROVIDERS: ATTEND Surgery Vascular Surgery
DX: I77.0 Arteriovenous fistula, acquired (principal); N19 Unspecified kidney failure

== ENCOUNTER → 2021-12-13 | Outpatient (POV) | payer OTHER ==
[~2021-12-13] VITALS: Ht 175.3 cm; Wt 125.9 kg
[~2021-12-13] MED LIST changes: +ELIQ5TAB PO; +OCUVCAP2 PO; +POTA-151 PO; -POTA20TA6 PO
[2021-12-13 11:30] VITALS: BP 142/66
== END ==
LOC: M IRPOV 11:23
PROVIDERS: ATTEND Radiology Diagnostic Radiology
DX: Z45.2 Encounter for adjustment and management of vascular access device (principal); Z91.013 Allergy to seafood

== ENCOUNTER → 2021-12-22 | Outpatient (CLI) | payer OTHER ==
[~2021-12-22] MED LIST changes: +LIDOCAINE 1% MDV 20ML VIAL As Ordered ONE; +VELP5CHW PO
[2021-12-22 12:25] VITALS: BP 120/67
== END ==
LOC: M IRPRO 10:39
PROVIDERS: ATTEND Radiology Diagnostic Radiology
DX: Z45.2 Encounter for adjustment and management of vascular access device (principal); Z99.2 Dependence on renal dialysis

== ENCOUNTER 2022-11-04 00:22 | Inpatient (IN) | payer MEDICARE, MEDICAID ==
[~2022-11-04] VITALS: Ht 172.7 cm; Wt 113.2 kg
[2022-11-04] VITALS (41 sets, daily range): BP systolic 72–114; BP diastolic 41–58
[~2022-11-04 00:22] MED LIST changes: -LIDOCAINE 1% MDV 20ML VIAL As Ordered ONE; +POTA-150 PO; -POTA10TA17 PO
[2022-11-04] MEDS ORDERED: PIPERACILLIN/TAZOBACTAM SOD 4.5 GM in D5W MINI-BAG PLUS 50 ML IV ONE (01:00)
[2022-11-04] MEDS ORDERED: NS 1,000 ML IV ONE ×3 (01:00→03:45)
[2022-11-04] MEDS ORDERED: ACETAMINOPHEN 1000MG 100ML IV BAG IV ONE (01:00)
[2022-11-04 01:09] LABS: VENOUS BASE EXCESS 5.9 (-2.0-2.0); VENOUS HCO3 29.6 MEQ/L (23.0-27.0); VENOUS O2 SATURATION 99.3 % (60.0-80.0); VENOUS PARTIAL PRESSURE CO2 39.6 mmHg (38.0-50.0); VENOUS PARTIAL PRESSURE O2 160.2 mmHg (30.0-50.0); VENOUS PH 7.491 UNITS (7.330-7.430); VENOUS STANDARD HCO3 29.8 MEQ/L; VENOUS TOTAL CO2 30.8 MEQ/L (24.0-28.0)
[2022-11-04 01:10] LABS: BASO % 0.3 % (0.0-1.0); EOS % 0.3 % (0.0-3.0); HEMATOCRIT 33.7 % (42.0-52.0); LYMPH # 1.3 10^3/uL (1.5-5.0); LYMPH % 18.5 % (24.0-44.0); MEAN CORPUSCULAR HEMOGLOBIN 32.8 pg (27.0-33.0); MEAN CORPUSCULAR HGB CONC 32.6 g/dl (32.0-36.5); MEAN CORPUSCULAR VOLUME 100.6 fl (80.0-96.0); MONO # 1.3 10^3/uL (0.0-0.8); MONO % 18.8 % (2.0-8.0); NEUTROPHILS # 4.2 10^3/uL (1.5-8.5); NEUTROPHILS % 61.7 % (36.0-66.0); RED BLOOD COUNT 3.35 10^6/uL (4.30-6.10); WHITE BLOOD COUNT 6.9 10^3/uL (4.0-10.0)
[2022-11-04 01:13] LABS: PLATELET COUNT, AUTOMATED 73 10^3/uL (150-450)
[2022-11-04 01:21] LABS: INR 1.08; PARTIAL THROMBOPLASTIN TIME 30.9 SECONDS (24.8-34.2); PROTHROMBIN TIME 14.2 SECONDS (12.5-14.5)
[2022-11-04] MEDS ORDERED: ONDANSETRON 4MG 2ML VIAL As Ordered ONE (01:37)
[2022-11-04 01:38] LABS: AMYLASE 147 U/L (30-118)
[2022-11-04 01:39] LABS: ALBUMIN 2.7 G/DL (3.2-5.2); ALKALINE PHOSPHATASE 84 U/L (46-116); ALT/SGPT 14 U/L (7.0-40); AST/SGOT 26 U/L (<34); BILIRUBIN,DIRECT 0.4 MG/DL (<0.4); BILIRUBIN,TOTAL 1.1 MG/DL (0.3-1.2); BLOOD UREA NITROGEN 16 MG/DL (9-23); CALCIUM LEVEL 8.8 MG/DL (8.3-10.6); CARBON DIOXIDE LEVEL 28 MMOL/L (20-31); CHLORIDE LEVEL 96 MMOL/L (98-107); CK-MB VALUE MASS < 1.0 NG/ML (<3.6); CREATININE FOR GFR 3.58 MG/DL (0.70-1.30); GLOMERULAR FILTRATION RATE 17.4 (>35); GLUCOSE, FASTING 123 MG/DL (74-106); POTASSIUM SERUM 3.8 MMOL/L (3.5-5.1); SODIUM LEVEL 132 MMOL/L (136-145); TOTAL PROTEIN 8.2 G/DL (5.7-8.2)
[2022-11-04] MEDS ORDERED: ONDANSETRON 4MG 2ML VIAL IV ONE (01:40)
[2022-11-04 01:42] LABS: CPK CREATINE PHOSPHOKINASE 21 U/L (46-171); MB/CK RELATIVE INDEX 4.76 (< OR =4)
[2022-11-04] MEDS: NOREPINEPHRINE 4MG IN D5 250ML 4 MG in IV 1 EA IV SCH ×16 (01:43→21:24)
[2022-11-04] MEDS ORDERED: ISOVUE-370 76% 100ML VIAL As Ordered ONE (02:52)
[2022-11-04] MEDS ORDERED: GLUCOSE 4GM CHEW TABLET PO PRN (06:10)
[2022-11-04] MEDS ORDERED: ALBUTEROL SULFATE 2.5MG/0.5ML INH NEB SOLN NEB PRN (06:10)
[2022-11-04] MEDS ORDERED: DEXTROSE 50% 50ML SYRINGE IV PRN (06:10)
[2022-11-04] MEDS ORDERED: HYDROMORPHONE HCL 0.5 MG/ 0.5 ML SYRINGE IV PRN (06:10)
[2022-11-04] MEDS ORDERED: GLUCAGON INJ 1MG VIAL SC PRN (06:10)
[2022-11-04] MEDS ORDERED: DIGOXIN INJ 0.5 MG/2 ML AMP IV ONE (06:10)
[2022-11-04] MEDS ORDERED: VANCOMYCIN HCL 750 MG, VIAL MATE ADAPTER 1 EACH in NS 250 ML IV SCH (07:10)
[2022-11-04] MEDS ORDERED: MV-M1CAP8 PO (07:34)
[2022-11-04] MEDS ORDERED: HOME MED LIST COMPLETE! XX SCH (07:35)
[2022-11-04] MEDS ORDERED: VANCOMYCIN HCL 750 MG, VIAL MATE ADAPTER 1 EACH in D5W 250 ML IV ONE ×2 (08:00→09:00)
[2022-11-04] MEDS: INSULIN LISPRO (NovoLOG) PER UNIT SC SCH ×4 (08:26→21:00)
[2022-11-04] MEDS: PIPERACILLIN/TAZOBACTAM SOD 2.25 GM in D5W MINI-BAG PLUS 50 ML IV SCH ×2 (10:03→17:49)
[2022-11-04 11:31] LABS: HEMATOCRIT 31.7 % (42.0-52.0); HEMOGLOBIN 10.4 g/dl (13.5-17.5); MEAN CORPUSCULAR HGB CONC 32.8 g/dl (32.0-36.5); MEAN CORPUSCULAR VOLUME 100.6 fl (80.0-96.0); RED BLOOD COUNT 3.15 10^6/uL (4.30-6.10); WHITE BLOOD COUNT 7.2 10^3/uL (4.0-10.0)
[2022-11-04 11:35] LABS: PLATELET COUNT, AUTOMATED 73 10^3/uL (150-450)
[2022-11-04] MEDS ORDERED: LACTATED RINGER'S 1000 ML IV ONE (12:00)
[2022-11-04 12:20] LABS: ALBUMIN 2.4 G/DL (3.2-5.2); CALCIUM LEVEL 7.9 MG/DL (8.3-10.6); CREATININE FOR GFR 4.29 MG/DL (0.70-1.30); GLOMERULAR FILTRATION RATE 14.1 (>35); POTASSIUM SERUM 3.5 MMOL/L (3.5-5.1); TOTAL PROTEIN 7.3 G/DL (5.7-8.2)
[2022-11-04] MEDS ORDERED: MAG SULF 1GM/100ML (MAG RUN) 1 GM in IV 1 EA IV ONE (23:40)
[2022-11-05] VITALS (93 sets, daily range): BP systolic 59–126; BP diastolic 37–65
[2022-11-05] MEDS: PIPERACILLIN/TAZOBACTAM SOD 2.25 GM in D5W MINI-BAG PLUS 50 ML IV SCH ×3 (01:16→17:35)
[2022-11-05] MEDS: NOREPINEPHRINE 4MG IN D5 250ML 4 MG in IV 1 EA IV SCH ×12 (01:36→22:59)
[2022-11-05 05:34] LABS: HEMATOCRIT 31.4 % (42.0-52.0); HEMOGLOBIN 10.4 g/dl (13.5-17.5); MEAN CORPUSCULAR HEMOGLOBIN 32.3 pg (27.0-33.0); MEAN CORPUSCULAR HGB CONC 33.1 g/dl (32.0-36.5); MEAN CORPUSCULAR VOLUME 97.5 fl (80.0-96.0); PLATELET COUNT, AUTOMATED 70 10^3/uL (150-450); RED BLOOD COUNT 3.22 10^6/uL (4.30-6.10)
[2022-11-05 06:08] LABS: CALCIUM LEVEL 7.6 MG/DL (8.3-10.6); CREATININE FOR GFR 5.45 MG/DL (0.70-1.30); GLOMERULAR FILTRATION RATE 10.7 (>35); POTASSIUM SERUM 3.6 MMOL/L (3.5-5.1)
[2022-11-05] MEDS ORDERED: LACTATED RINGER'S 1000 ML IV ONE (08:35)
[2022-11-05] MEDS ORDERED: MAG SULF 1GM/100ML (MAG RUN) 1 GM in IV 1 EA IV ONE (09:00)
[2022-11-05] MEDS: INSULIN LISPRO (NovoLOG) PER UNIT SC SCH ×4 (09:02→21:00)
[2022-11-05] MEDS: HEPARIN SOD (PORCINE) 5000UNITS/ML 1ML VIAL/SYRINGE SQ SCH ×2 (09:04→22:59)
[2022-11-05] MEDS ORDERED: VANCOMYCIN HCL 500 MG in D5W MINI-BAG PLUS 100 ML IV ONE (10:00)
[2022-11-05] MEDS ORDERED: MIDODRINE 5 MG TAB PO SCH ×2 (14:00)
[2022-11-05] MEDS: MIDODRINE 5 MG TAB PO SCH (22:18)
[2022-11-06] VITALS (84 sets, daily range): BP systolic 69–142; BP diastolic 35–73
[2022-11-06] MEDS: PIPERACILLIN/TAZOBACTAM SOD 2.25 GM in D5W MINI-BAG PLUS 50 ML IV SCH (01:08)
[2022-11-06] MEDS: NOREPINEPHRINE 4MG IN D5 250ML 4 MG in IV 1 EA IV SCH ×8 (03:44→14:34)
[2022-11-06 04:20] LABS: HEMATOCRIT 29.2 % (42.0-52.0); HEMOGLOBIN 9.9 g/dl (13.5-17.5); MEAN CORPUSCULAR HEMOGLOBIN 32.9 pg (27.0-33.0); MEAN CORPUSCULAR HGB CONC 33.9 g/dl (32.0-36.5); RED BLOOD COUNT 3.01 10^6/uL (4.30-6.10); WHITE BLOOD COUNT 8.5 10^3/uL (4.0-10.0)
[2022-11-06 04:23] LABS: PLATELET COUNT, AUTOMATED 78 10^3/uL (150-450)
[2022-11-06 04:51] LABS: CALCIUM LEVEL 7.4 MG/DL (8.3-10.6); CREATININE FOR GFR 6.9 MG/DL (0.70-1.30); GLOMERULAR FILTRATION RATE 8.2 (>35); MAGNESIUM LEVEL 1.8 MG/DL (1.8-2.4); POTASSIUM SERUM 3.8 MMOL/L (3.5-5.1)
[2022-11-06] MEDS ORDERED: LIDOCAINE 1% SDV 5ML VIAL SC PRN (06:00)
[2022-11-06] MEDS ORDERED: HEPARIN 1,000UNITS/ML 10ML VIAL (FOR RADIOLOGY & DIALYSIS ONLY) IV PRN (06:00)
[2022-11-06] MEDS ORDERED: HEPARIN 1,000UNITS/ML 10ML VIAL (FOR RADIOLOGY & DIALYSIS ONLY) XX SCH (06:00)
[2022-11-06] MEDS ORDERED: SODIUM CHLORIDE 0.9% 1000ML IV PRN (06:00)
[2022-11-06] MEDS: MIDODRINE 5 MG TAB PO SCH ×3 (06:06→21:31)
[2022-11-06] MEDS: INSULIN LISPRO (NovoLOG) PER UNIT SC SCH ×4 (07:24→20:56)
[2022-11-06 08:44] LABS: THYROID STIMULATING HORMONE 1.777 uIU/ML (0.55-4.78)
[2022-11-06] MEDS ORDERED: TAZOBACTAM SOD IV SCH (09:00)
[2022-11-06] MEDS ORDERED: PIPERACILLIN IV SCH (09:00)
[2022-11-06] MEDS ORDERED: NS MINI IV SCH (09:00)
[2022-11-06] MEDS: APIXABAN 2.5 MG TAB (ELIQUIS) PO SCH ×2 (09:15→21:31)
[2022-11-06 15:42] LABS: C REACTIVE PROTEIN QUANTITATIV 10.4 MG/DL (<1.0)
[2022-11-06] MEDS ORDERED: VANCOMYCIN HCL 1,000 MG, VIAL MATE ADAPTER 1 EACH in D5W 250 ML IV SCH (16:00)
[2022-11-06] MEDS: PIPERACILLIN IV SCH (21:31)
[2022-11-06] MEDS: TAZOBACTAM SOD IV SCH (21:31)
[2022-11-06] MEDS: NS MINI IV SCH (21:31)
[2022-11-07] VITALS (84 sets, daily range): BP systolic 71–108; BP diastolic 38–82
[2022-11-07] MEDS: NOREPINEPHRINE 4MG IN D5 250ML 4 MG in IV 1 EA IV SCH ×10 (00:53→20:45)
[2022-11-07 04:58] LABS: HEMATOCRIT 28.9 % (42.0-52.0); HEMOGLOBIN 9.7 g/dl (13.5-17.5); MEAN CORPUSCULAR HEMOGLOBIN 32.6 pg (27.0-33.0); MEAN CORPUSCULAR HGB CONC 33.6 g/dl (32.0-36.5); RED BLOOD COUNT 2.98 10^6/uL (4.30-6.10); WHITE BLOOD COUNT 7.1 10^3/uL (4.0-10.0)
[2022-11-07 05:00] LABS: PLATELET COUNT, AUTOMATED 98 10^3/uL (150-450)
[2022-11-07] MEDS: MIDODRINE 5 MG TAB PO SCH ×3 (05:11→21:15)
[2022-11-07] MEDS: NS MINI IV SCH ×3 (05:11→20:43)
[2022-11-07] MEDS: TAZOBACTAM SOD IV SCH ×3 (05:11→20:43)
[2022-11-07] MEDS: PIPERACILLIN IV SCH ×3 (05:11→20:43)
[2022-11-07 05:58] LABS: CALCIUM LEVEL 7.1 MG/DL (8.3-10.6); CREATININE FOR GFR 4.64 MG/DL (0.70-1.30); GLOMERULAR FILTRATION RATE 12.9 (>35); POTASSIUM SERUM 3.4 MMOL/L (3.5-5.1)
[2022-11-07] MEDS ORDERED: POTASSIUM CHLORIDE 10MEQ SR TABLET PO ONE (07:00)
[2022-11-07] MEDS: INSULIN LISPRO (NovoLOG) PER UNIT SC SCH ×4 (07:44→20:43)
[2022-11-07 08:34] LABS: MAGNESIUM LEVEL 1.8 MG/DL (1.8-2.4)
[2022-11-07] MEDS: APIXABAN 2.5 MG TAB (ELIQUIS) PO SCH ×2 (08:47→20:42)
[2022-11-08] VITALS (83 sets, daily range): BP systolic 72–110; BP diastolic 34–61
[2022-11-08] MEDS: NOREPINEPHRINE 4MG IN D5 250ML 4 MG in IV 1 EA IV SCH ×8 (03:24→19:24)
[2022-11-08] MEDS: PIPERACILLIN IV SCH ×3 (05:32→20:32)
[2022-11-08] MEDS: TAZOBACTAM SOD IV SCH ×3 (05:32→20:32)
[2022-11-08] MEDS: NS MINI IV SCH ×3 (05:32→20:32)
[2022-11-08] MEDS: MIDODRINE 5 MG TAB PO SCH ×3 (05:33→20:29)
[2022-11-08] MEDS ORDERED: SODIUM CHLORIDE 0.9% 1000ML IV PRN (06:00)
[2022-11-08] MEDS ORDERED: HEPARIN 1,000UNITS/ML 10ML VIAL (FOR RADIOLOGY & DIALYSIS ONLY) XX SCH (06:00)
[2022-11-08] MEDS ORDERED: LIDOCAINE 1% SDV 5ML VIAL SC PRN (06:00)
[2022-11-08 06:24] LABS: HEMATOCRIT 30.2 % (42.0-52.0); HEMOGLOBIN 9.7 g/dl (13.5-17.5); MEAN CORPUSCULAR HGB CONC 32.1 g/dl (32.0-36.5); MEAN CORPUSCULAR VOLUME 99.7 fl (80.0-96.0); PLATELET COUNT, AUTOMATED 121 10^3/uL (150-450); RED BLOOD COUNT 3.03 10^6/uL (4.30-6.10); WHITE BLOOD COUNT 6.7 10^3/uL (4.0-10.0)
[2022-11-08 06:31] LABS: CALCIUM LEVEL 7.5 MG/DL (8.3-10.6); CREATININE FOR GFR 6.26 MG/DL (0.70-1.30); GLOMERULAR FILTRATION RATE 9.1 (>35); POTASSIUM SERUM 3.3 MMOL/L (3.5-5.1)
[2022-11-08] MEDS: APIXABAN 2.5 MG TAB (ELIQUIS) PO SCH ×2 (09:56→20:30)
[2022-11-08] MEDS: INSULIN LISPRO (NovoLOG) PER UNIT SC SCH ×4 (09:56→20:31)
[2022-11-08] MEDS: ACETAMINOPHEN TAB 650MG DOSE (2X325MG) PO PRN (13:54)
[2022-11-09] VITALS (81 sets, daily range): BP systolic 65–109; BP diastolic 35–55
[2022-11-09] MEDS: ACETAMINOPHEN TAB 650MG DOSE (2X325MG) PO PRN (02:27)
[2022-11-09] MEDS: TAZOBACTAM SOD IV SCH ×2 (04:38→12:33)
[2022-11-09] MEDS: NS MINI IV SCH ×2 (04:38→12:33)
[2022-11-09] MEDS: PIPERACILLIN IV SCH ×2 (04:38→12:33)
[2022-11-09 04:57] LABS: HEMATOCRIT 29.3 % (42.0-52.0); HEMOGLOBIN 9.6 g/dl (13.5-17.5); MEAN CORPUSCULAR HEMOGLOBIN 32.9 pg (27.0-33.0); MEAN CORPUSCULAR HGB CONC 32.8 g/dl (32.0-36.5); MEAN CORPUSCULAR VOLUME 100.3 fl (80.0-96.0); PLATELET COUNT, AUTOMATED 105 10^3/uL (150-450); RED BLOOD COUNT 2.92 10^6/uL (4.30-6.10); WHITE BLOOD COUNT 6.4 10^3/uL (4.0-10.0)
[2022-11-09 05:29] LABS: CALCIUM LEVEL 7.6 MG/DL (8.3-10.6); CREATININE FOR GFR 7.57 MG/DL (0.70-1.30); GLOMERULAR FILTRATION RATE 7.3 (>35); POTASSIUM SERUM 3.6 MMOL/L (3.5-5.1)
[2022-11-09] MEDS: NOREPINEPHRINE 4MG IN D5 250ML 4 MG in IV 1 EA IV SCH ×8 (06:32→23:11)
[2022-11-09] MEDS: MIDODRINE 5 MG TAB PO SCH ×3 (06:32→21:06)
[2022-11-09] MEDS: INSULIN LISPRO (NovoLOG) PER UNIT SC SCH ×4 (07:30→21:00)
[2022-11-09] MEDS: APIXABAN 2.5 MG TAB (ELIQUIS) PO SCH ×2 (08:02→21:06)
[2022-11-09] MEDS ORDERED: SODIUM CHLORIDE 0.9% 250ML IV ONE (08:20)
[2022-11-09] MEDS ORDERED: SODIUM CHLORIDE 0.9% 1000ML IV PRN (08:40)
[2022-11-09] MEDS ORDERED: LIDOCAINE 1% SDV 5ML VIAL SC PRN (08:40)
[2022-11-09] MEDS ORDERED: HEPARIN 1,000UNITS/ML 10ML VIAL (FOR RADIOLOGY & DIALYSIS ONLY) XX SCH (08:40)
[2022-11-09] MEDS ORDERED: HEPARIN 1,000UNITS/ML 10ML VIAL (FOR RADIOLOGY & DIALYSIS ONLY) IV PRN (08:40)
[2022-11-09] MEDS ORDERED: ISOVUE-370 76% 100ML VIAL As Ordered ONE (10:19)
[2022-11-09] MEDS: DARBEPOETIN 100MCG/0.5ML *DIALYSIS* SYRINGE IV SCH (14:14)
[2022-11-09 15:18] LABS: MAGNESIUM LEVEL 1.9 MG/DL (1.8-2.4)
[2022-11-09 16:16] LABS: C REACTIVE PROTEIN QUANTITATIV 7.3 MG/DL (<1.0)
[2022-11-10] VITALS (85 sets, daily range): BP systolic 69–154; BP diastolic 35–64
[2022-11-10 04:32] LABS: BASO % 0.6 % (0.0-1.0); EOS # 0.3 10^3/uL (0.0-0.5); EOS % 5.2 % (0.0-3.0); HEMATOCRIT 29.3 % (42.0-52.0); HEMOGLOBIN 9.5 g/dl (13.5-17.5); LYMPH # 1.2 10^3/uL (1.5-5.0); LYMPH % 22.1 % (24.0-44.0); MEAN CORPUSCULAR HEMOGLOBIN 32.5 pg (27.0-33.0); MEAN CORPUSCULAR HGB CONC 32.4 g/dl (32.0-36.5); MEAN CORPUSCULAR VOLUME 100.3 fl (80.0-96.0); MONO # 0.9 10^3/uL (0.0-0.8); MONO % 17.2 % (2.0-8.0); NEUTROPHILS # 2.9 10^3/uL (1.5-8.5); NEUTROPHILS % 53.8 % (36.0-66.0); RED BLOOD COUNT 2.92 10^6/uL (4.30-6.10); WHITE BLOOD COUNT 5.4 10^3/uL (4.0-10.0)
[2022-11-10 04:39] LABS: PLATELET COUNT, AUTOMATED 76 10^3/uL (150-450)
[2022-11-10 04:58] LABS: CALCIUM LEVEL 7.5 MG/DL (8.3-10.6); CREATININE FOR GFR 4.71 MG/DL (0.70-1.30); GLOMERULAR FILTRATION RATE 12.7 (>35); POTASSIUM SERUM 3.3 MMOL/L (3.5-5.1)
[2022-11-10] MEDS: MIDODRINE 5 MG TAB PO SCH ×3 (05:53→21:11)
[2022-11-10] MEDS ORDERED: POTASSIUM CHLORIDE 10% LIQ 20MEQ/15ML UDC PO ONE (06:00)
[2022-11-10] MEDS: NOREPINEPHRINE 4MG IN D5 250ML 4 MG in IV 1 EA IV SCH ×6 (06:58→21:19)
[2022-11-10] MEDS: INSULIN LISPRO (NovoLOG) PER UNIT SC SCH ×4 (08:24→21:00)
[2022-11-10] MEDS: APIXABAN 2.5 MG TAB (ELIQUIS) PO SCH ×2 (08:24→21:11)
[2022-11-10 09:24] LABS: MAGNESIUM LEVEL 1.7 MG/DL (1.8-2.4)
[2022-11-10] MEDS ORDERED: MAG SULF 1GM/100ML (MAG RUN) 1 GM in IV 1 EA IV ONE (12:00)
[2022-11-10] MEDS ORDERED: NYSTATIN 100,000 UNITS/GM TOPICAL PWD 15GM TOP PRN (19:05)
[2022-11-10] MEDS: diphenhydrAMINE CREAM 30GM TOP PRN (23:56)
[2022-11-11] VITALS (17 sets, daily range): BP systolic 87–114; BP diastolic 39–94
[2022-11-11] MEDS ORDERED: HEPARIN 1,000UNITS/ML 10ML VIAL (FOR RADIOLOGY & DIALYSIS ONLY) XX SCH (00:25)
[2022-11-11] MEDS ORDERED: LIDOCAINE 1% SDV 5ML VIAL SC PRN (00:25)
[2022-11-11] MEDS ORDERED: SODIUM CHLORIDE 0.9% 1000ML IV PRN (00:25)
[2022-11-11] MEDS ORDERED: HEPARIN 1,000UNITS/ML 10ML VIAL (FOR RADIOLOGY & DIALYSIS ONLY) IV PRN (00:25)
[2022-11-11] MEDS: NOREPINEPHRINE 4MG IN D5 250ML 4 MG in IV 1 EA IV SCH ×6 (02:58→16:18)
[2022-11-11] MEDS: MIDODRINE 5 MG TAB PO SCH ×3 (05:33→20:59)
[2022-11-11 05:55] LABS: BASO % 0.5 % (0.0-1.0); EOS # 0.3 10^3/uL (0.0-0.5); EOS % 5.1 % (0.0-3.0); HEMATOCRIT 28.8 % (42.0-52.0); HEMOGLOBIN 9.4 g/dl (13.5-17.5); LYMPH # 1.2 10^3/uL (1.5-5.0); LYMPH % 19.5 % (24.0-44.0); MEAN CORPUSCULAR HGB CONC 32.6 g/dl (32.0-36.5); MEAN CORPUSCULAR VOLUME 101.1 fl (80.0-96.0); MONO # 0.9 10^3/uL (0.0-0.8); MONO % 14.2 % (2.0-8.0); NEUTROPHILS # 3.8 10^3/uL (1.5-8.5); NEUTROPHILS % 59.4 % (36.0-66.0); PLATELET COUNT, AUTOMATED 101 10^3/uL (150-450); RED BLOOD COUNT 2.85 10^6/uL (4.30-6.10); WHITE BLOOD COUNT 6.3 10^3/uL (4.0-10.0)
[2022-11-11 06:25] LABS: CALCIUM LEVEL 7.4 MG/DL (8.3-10.6); CREATININE FOR GFR 6.23 MG/DL (0.70-1.30); GLOMERULAR FILTRATION RATE 9.2 (>35); POTASSIUM SERUM 3.5 MMOL/L (3.5-5.1)
[2022-11-11] MEDS: INSULIN LISPRO (NovoLOG) PER UNIT SC SCH ×4 (07:30→20:51)
[2022-11-11] MEDS: APIXABAN 2.5 MG TAB (ELIQUIS) PO SCH ×2 (08:18→20:59)
[2022-11-11] MEDS: diphenhydrAMINE CREAM 30GM TOP PRN ×2 (12:06→19:06)
[2022-11-12] VITALS: BP 81/46
[2022-11-12] MEDS: NOREPINEPHRINE 4MG IN D5 250ML 4 MG in IV 1 EA IV SCH ×4 (00:18→05:38)
[2022-11-12 04:00] VITALS: BP 96/42
[2022-11-12] MEDS: diphenhydrAMINE CREAM 30GM TOP PRN (04:04)
[2022-11-12] MEDS: MIDODRINE 5 MG TAB PO SCH ×3 (05:53→21:19)
[2022-11-12 06:12] LABS: HEMATOCRIT 29.3 % (42.0-52.0); HEMOGLOBIN 9.3 g/dl (13.5-17.5); MEAN CORPUSCULAR HEMOGLOBIN 32.5 pg (27.0-33.0); MEAN CORPUSCULAR HGB CONC 31.7 g/dl (32.0-36.5); MEAN CORPUSCULAR VOLUME 102.4 fl (80.0-96.0); RED BLOOD COUNT 2.86 10^6/uL (4.30-6.10); WHITE BLOOD COUNT 5.9 10^3/uL (4.0-10.0)
[2022-11-12 06:17] LABS: PLATELET COUNT, AUTOMATED 94 10^3/uL (150-450)
[2022-11-12 06:44] LABS: CALCIUM LEVEL 7.4 MG/DL (8.3-10.6); CREATININE FOR GFR 4.7 MG/DL (0.70-1.30); GLOMERULAR FILTRATION RATE 12.7 (>35); POTASSIUM SERUM 3.5 MMOL/L (3.5-5.1)
[2022-11-12] MEDS: INSULIN LISPRO (NovoLOG) PER UNIT SC SCH ×4 (07:30→21:00)
[2022-11-12 08:01] VITALS: BP 87/36
[2022-11-12] MEDS: APIXABAN 2.5 MG TAB (ELIQUIS) PO SCH ×2 (08:36→21:19)
[2022-11-12 13:41] VITALS: BP 91/45
[2022-11-12 14:24] VITALS: BP 91/40
[2022-11-12 20:36] VITALS: BP 82/40
[2022-11-13 05:53] VITALS: BP 96/43
[2022-11-13] MEDS: MIDODRINE 5 MG TAB PO SCH ×3 (06:18→21:07)
[2022-11-13] MEDS: INSULIN LISPRO (NovoLOG) PER UNIT SC SCH ×4 (07:21→20:58)
[2022-11-13] MEDS ORDERED: HEPARIN 1,000UNITS/ML 10ML VIAL (FOR RADIOLOGY & DIALYSIS ONLY) XX SCH (08:05)
[2022-11-13] MEDS ORDERED: HEPARIN 1,000UNITS/ML 10ML VIAL (FOR RADIOLOGY & DIALYSIS ONLY) IV PRN (08:05)
[2022-11-13] MEDS ORDERED: SODIUM CHLORIDE 0.9% 1000ML IV PRN (08:05)
[2022-11-13] MEDS ORDERED: LIDOCAINE 1% SDV 5ML VIAL SC PRN (08:05)
[2022-11-13] MEDS: APIXABAN 2.5 MG TAB (ELIQUIS) PO SCH ×2 (08:05→21:06)
[2022-11-13 08:20] LABS: HEMATOCRIT 28.7 % (42.0-52.0); HEMOGLOBIN 9.2 g/dl (13.5-17.5); MEAN CORPUSCULAR HEMOGLOBIN 32.4 pg (27.0-33.0); MEAN CORPUSCULAR HGB CONC 32.1 g/dl (32.0-36.5); MEAN CORPUSCULAR VOLUME 101.1 fl (80.0-96.0); RED BLOOD COUNT 2.84 10^6/uL (4.30-6.10); WHITE BLOOD COUNT 5.5 10^3/uL (4.0-10.0)
[2022-11-13 08:24] LABS: PLATELET COUNT, AUTOMATED 90 10^3/uL (150-450)
[2022-11-13 08:43] LABS: CALCIUM LEVEL 7.7 MG/DL (8.3-10.6); CREATININE FOR GFR 6.48 MG/DL (0.70-1.30); GLOMERULAR FILTRATION RATE 8.8 (>35)
[2022-11-13 14:00] VITALS: BP 90/53
[2022-11-13 20:57] VITALS: BP 88/44
[2022-11-14 05:23] VITALS: BP 99/39
[2022-11-14] MEDS: MIDODRINE 5 MG TAB PO SCH ×3 (05:29→20:39)
[2022-11-14] MEDS: INSULIN LISPRO (NovoLOG) PER UNIT SC SCH ×5 (07:30→20:39)
[2022-11-14] MEDS: APIXABAN 2.5 MG TAB (ELIQUIS) PO SCH ×2 (09:29→20:39)
[2022-11-14 20:15] VITALS: BP 88/46
[2022-11-15 05:14] VITALS: BP 92/45
[2022-11-15] MEDS: APIXABAN 2.5 MG TAB (ELIQUIS) PO SCH ×2 (05:46→20:47)
[2022-11-15] MEDS: MIDODRINE 5 MG TAB PO SCH ×3 (05:46→21:58)
[2022-11-15] MEDS: INSULIN LISPRO (NovoLOG) PER UNIT SC SCH ×4 (07:30→21:00)
[2022-11-15] MEDS ORDERED: LIDOCAINE 1% SDV 5ML VIAL SC PRN (10:45)
[2022-11-15] MEDS ORDERED: SODIUM CHLORIDE 0.9% 1000ML IV PRN (10:45)
[2022-11-15] MEDS ORDERED: HEPARIN 1,000UNITS/ML 10ML VIAL (FOR RADIOLOGY & DIALYSIS ONLY) XX SCH (10:45)
[2022-11-15] MEDS ORDERED: HEPARIN 1,000UNITS/ML 10ML VIAL (FOR RADIOLOGY & DIALYSIS ONLY) IV PRN (10:45)
[2022-11-15] MEDS: DARBEPOETIN 100MCG/0.5ML *DIALYSIS* SYRINGE IV SCH (13:17)
[2022-11-16] MEDS: MIDODRINE 5 MG TAB PO SCH (05:32)
[2022-11-16 06:00] VITALS: BP 93/48
[2022-11-16 08:17] LABS: HEMATOCRIT 29.3 % (42.0-52.0); HEMOGLOBIN 9.3 g/dl (13.5-17.5); MEAN CORPUSCULAR HEMOGLOBIN 32.4 pg (27.0-33.0); MEAN CORPUSCULAR HGB CONC 31.7 g/dl (32.0-36.5); MEAN CORPUSCULAR VOLUME 102.1 fl (80.0-96.0); RED BLOOD COUNT 2.87 10^6/uL (4.30-6.10); WHITE BLOOD COUNT 4.6 10^3/uL (4.0-10.0)
[2022-11-16 08:41] LABS: PLATELET COUNT, AUTOMATED 91 10^3/uL (150-450)
[2022-11-16 08:46] LABS: CALCIUM LEVEL 7.9 MG/DL (8.3-10.6); CREATININE FOR GFR 4.6 MG/DL (0.70-1.30); POTASSIUM SERUM 3.7 MMOL/L (3.5-5.1)
[2022-11-16] MEDS: APIXABAN 2.5 MG TAB (ELIQUIS) PO SCH (09:03)
[2022-11-16] MEDS: INSULIN LISPRO (NovoLOG) PER UNIT SC SCH ×2 (09:04→12:00)
[2022-11-16] MEDS ORDERED: ELIQ2.5T PO (10:53)
[2022-11-16] MEDS ORDERED: MIDO5TA PO (10:56)
[2022-11-16 12:34] VITALS: BP 112/45
== END 2022-11-16 12:42 | DRG 871 ==
LOC: M ED 00:22 → M ED INP 06:06 → ENRESERV 08:54 → M ICU 09:28 → M MSPAV 11-12 14:18
PROVIDERS: ADMIT Internal Medicine; ATTEND General Practice
PROC: 02HV33Z Insertion of Infusion Device into Superior Vena Cava, Percutaneous Approach (ICD-10-PCS; principal; 2022-11-04)
PROC: 5A1D70Z Performance of Urinary Filtration, Intermittent, Less than 6 Hours Per Day (ICD-10-PCS; 2022-11-06)
PROC: B246ZZZ Ultrasonography of Right and Left Heart (ICD-10-PCS; 2022-11-06)
DX: A41.9 Sepsis, unspecified organism (principal); N18.6 End stage renal disease; R65.21 Severe sepsis with septic shock; G93.41 Metabolic encephalopathy; K56.7 Ileus, unspecified; E87.1 Hypo-osmolality and hyponatremia; E87.20 Acidosis, unspecified; I48.20 Chronic atrial fibrillation, unspecified; J98.11 Atelectasis; G45.8 Other transient cerebral ischemic attacks and related syndromes; I12.0 Hypertensive chronic kidney disease with stage 5 chronic kidney disease or end stage renal disease; D69.6 Thrombocytopenia, unspecified; Z66 Do not resuscitate; E11.22 Type 2 diabetes mellitus with diabetic chronic kidney disease; E66.9 Obesity, unspecified; D64.9 Anemia, unspecified; I27.20 Pulmonary hypertension, unspecified; K74.60 Unspecified cirrhosis of liver; E03.9 Hypothyroidism, unspecified; E78.5 Hyperlipidemia, unspecified; I87.2 Venous insufficiency (chronic) (peripheral); I89.0 Lymphedema, not elsewhere classified; M10.9 Gout, unspecified; K43.2 Incisional hernia without obstruction or gangrene; I35.0 Nonrheumatic aortic (valve) stenosis; I70.0 Atherosclerosis of aorta; E87.6 Hypokalemia; E87.70 Fluid overload, unspecified; N20.0 Calculus of kidney; R19.7 Diarrhea, unspecified; I25.10 Atherosclerotic heart disease of native coronary artery without angina pectoris; K43.5 Parastomal hernia without obstruction or gangrene; Z99.2 Dependence on renal dialysis; Z85.038 Personal history of other malignant neoplasm of large intestine; Z85.46 Personal history of malignant neoplasm of prostate; Z90.49 Acquired absence of other specified parts of digestive tract; Z79.01 Long term (current) use of anticoagulants; Z79.84 Long term (current) use of oral hypoglycemic drugs; Z79.899 Other long term (current) drug therapy; Z91.013 Allergy to seafood; Z68.37 Body mass index [BMI] 37.0-37.9, adult; Z93.3 Colostomy status